=== PATIENT | female | born 1995 | race Caucasian/White ===

== ENCOUNTER 2017-04-29 14:29 | Emergency (ER) | payer BC, MEDICAID ==
[~2017-04-29] VITALS: Ht 160 cm; Wt 56.8 kg
[~2017-04-29 14:29] MED LIST: BUPR150T9 PO; CEFP500T4 PO; CETI1SYR3; DOCU-143 PO; ESCI20TA2 PO; FAMO-119 PO; IBUP-1773 PO; LISD40CA3 PO; METH4TAB PO; NITR-65 PO; OMEP20CA6 PO; OXYC-197 PO; PRM50SU PR; SPRINTEC; [UNRECOGNIZED DRUG - CODE]; b12
[2017-04-29] MEDS ORDERED: LORA-404 PO (14:44)
[2017-04-29] MEDS ORDERED: OMEP20CA12 PO (14:44)
[2017-04-29 15:15] LABS: BILIRUBIN,URINE NEGATIVE (NEGATIVE); CLARITY,URINE CLEAR; COLOR,URINE YELLOW; GLUCOSE, URINE (UA) NEGATIVE (NEGATIVE); KETONES,URINE 2+ (NEGATIVE); LEUKOCYTE ESTERASE ,URINE 1+ (NEGATIVE); NITRITE,URINE NEGATIVE (NEGATIVE); PH,URINE 6 (5-9); PROTEIN,URINE 1+ (NEGATIVE); UROBILINOGEN,URINE NORMAL (NORMAL)
[2017-04-29 15:22] LABS: BACTERIA,URINE FEW /HPF; SQUAMOUS EPITHELIAL CELL,UR 25-50 /HPF; WBC,URINE 0-2 /HPF
--- NOTE | 2017-04-29 15:29 | ED GU-Female ---
General Chief Complaint: Abdominal/GI Problems Stated Complaint: ABD PAIN Nursing Triage Note: PT STATES LOW ABD PAIN THAT STARTED YESTERDAY, NO KNOWN CAUSE. DENIES DIFFICULTY URINATING. Nursing Sepsis Screen: No Definite Risk Source: patient, family Exam Limitations: no limitations History of Present Illness Date Seen by Provider: Apr 29, 2017 Time Seen by Provider: 15:29 Initial Comments 22 yo female patient presents to the ED with c/o lower abdominal pain with onset yesterday. denies n/v/d, dysuria, frequency, vaginal dsch, or fevers. patient reports having a period one month ago with bleeding between periods. Also reports starting her menstrual cycle this week. Patient uses sprintec. Denies missing any doses of her BCP since December. Timing/Duration: yesterday Severity/Quality: cramping Location: suprapubic Prior Genitourinary Problems: none Sexual [place] History: less than 2 months ago, single partner Allergies and Home Medications Allergies Coded Allergies: hydrocodone (Unverified Allergy, Intermediate, HIVES, 09/16/15) penicillin (Unverified Allergy, Mild, RASH, 09/16/15) Home Medications Bupropion HCl 150 Mg Tablet.er, 150 MG PO DAILY, (Reported) Docusate Sodium 100 Mg Capsule, 100 MG PO BID, #60 Prescribed by: BRIDGER BLUE on 09/16/15 1411 Ibuprofen 600 Mg Tablet, 600 MG PO Q6H PRN for PAIN, #30 Prescribed by: BRIDGER BLUE on 09/16/15 1411 Lisdexamfetamine Dimesylate 40 Mg Capsule, 40 MG PO DAILY, #0 Prescribed by: TREASURE LEE on 09/16/15 1306 Lorazepam 0.5 Mg Tablet, 0.5 MG PO PRN, (Reported) Nitrofurantoin Monohyd/M-Cryst 100 Mg Capsule, 1 TAB PO BID, #10 Ref 0 Prescribed by: BRAYAN LOPEZ on 04/29/17 1652 Omeprazole 20 Mg Capsule.dr, 20 MG PO, (Reported) Oxycodone HCl/Acetaminophen 1 Each Tablet, 1-2 EACH PO Q6H PRN for PAIN, #30 MAY TAKE ONE OR TWO TABLETS BY MOUTH EVERY 6 HRS NEEDED FOR PAIN. LAST PAIN MEDICATION, ONE TABLET, GIVEN AT 4:25 PM. Prescribed by: TREASURE LEE on 09/16/15 1703 [Sprintec] , (Reported) Constitutional: No chills, No dizziness, No fever, No malaise EENTM: no symptoms reported Respiratory: no symptoms reported Cardiovascular: no symptoms reported Gastrointestinal: abdominal pain (suprapubic abdominal pain), No constipation, No diarrhea, No loss of appetite, No nausea, No vomiting Genitourinary: see HPI, denies burning, denies discharge, denies dysuria, denies frequency, denies flank pain, denies hematuria, pain : No LMP: Apr 29, 2017 Musculoskeletal: no symptoms reported Skin: no symptoms reported Psychiatric/Neurological: No Symptoms Reported All Other Systemes Reviewed Negative Unless Noted: Yes (Negative excepted noted.) Past Mlaajmi-Mcwlmo-Ujwnjv Hx Patient Social History Alcohol Use: Rarely Uses Alcohol Beverage of Choice: Wine Recreational Drug Use: Yes (THC) Type Used: Cigarettes Recent Foreign Travel: No Contact w/Someone Who Travel: No Recent Infectious Disease Expo: No Recent Hopitalizations: No Immunizations Up To Date Tetanus Booster (TDap): More than 5yrs PED Vaccines UTD: Yes Date of Influenza Vaccine: Dec 20, 2013 Seasonal Allergies Seasonal Allergies: Yes Surgeries History of Surgeries: Yes (EGD, RT ANKLE FX, LT WRIST FX) Surgeries: Appendectomy, Orthopedic Respiratory History of Respiratory Disorde: Yes (OCCASIONAL BRONCHITIS) Respiratory Disorders: Pneumonia Cardiovascular History of Cardiac Disorders: No Neurological History of Neurological Disord: No Reproductive System : No Last Menstrual Period: Apr 05, 2017 Hx Reproductive Disorders: No Sexually Transmitted Disease: No Female Reproductive Disorders: Denies Genitourinary History of Genitourinary Disor: No Gastrointestinal History of Gastrointestinal Di: Yes (ULCERS) Gastrointestinal Disorders: Esophagitis, Ulcer Musculoskeletal History of Musculoskeletal Dis: Yes (WRIST AND ANKLE) Musculoskeletal Disorders: Fractures Endocrine History of Endocrine Disorders: No Cancer History of Cancer: No Psychosocial History of Psychiatric Problem: Yes Behavioral Health Disorders: Eating Disorder, Anxiety, Suicide Attempts, Depression Integumentary History of Skin or Integumenta: No Blood Transfusions History of Blood Disorders: No Reviewed Nursing Assessment Reviewed/Agree w Nursing PMH: Yes Family Medical History Significant Family History: No Pertinent Family Hx Physical Exam Vital Signs Vital Signs - First Documented 04/29/17 14:37 Temp 97.6 Pulse 71 Resp 18 B/P (MAP) 125/82 (96) Pulse Ox 100 O2 Delivery Room Air Capillary Refill : Less Than 3 Seconds General Appearance: WD/WN, no apparent distress HEENT: PERRL/EOMI, pharynx normal Neck: supple, normal inspection Cardiovascular: normal peripheral pulses, regular rate, rhythm, no edema, no murmur Respiratory: lungs clear, normal breath sounds, no respiratory distress, no accessory muscle use Gastrointestinal: normal bowel sounds, soft, no organomegaly, No distended, guarding (suprapubic guarding.), No rebound, tenderness (suprapubic tenderness) , No mass Back: normal inspection, no CVA tenderness Extremities: no pedal edema, normal capillary refill Neurologic/Psychiatric: alert, normal mood/affect, oriented x 3 Skin: normal color, warm/dry Progress/Results/Core Measures Suspected Sepsis Recent Fever Within 48 Hours: No Infection Criteria Present: None New/Unexplained Altered Menta: No Sepsis Screen: No Definite Risk Sepsis Diagnosis: SIRS Temperature:97.6 Pulse: 71 Respiratory Rate: 18 Laboratory Tests 04/29/17 15:20: White Blood Count 10.4 Blood Pressure 125 /82 Mean: 96 Laboratory Tests 04/29/17 15:20: Creatinine 0.86, Platelet Count 230, Total Bilirubin 1.7H Results/Orders Lab Results Laboratory Tests Test 04/29/17 14:52 04/29/17 15:20 Range/Units Urine Color YELLOW Urine Clarity CLEAR Urine pH 6 5-9 Urine Specific Metter 1.020 1.016-1.022 Urine Protein 1+ H NEGATIVE Urine Glucose (UA) NEGATIVE NEGATIVE Urine Ketones 2+ H NEGATIVE Urine Nitrite NEGATIVE NEGATIVE Urine Bilirubin NEGATIVE NEGATIVE Urine Urobilinogen NORMAL NORMAL MG/DL Urine Leukocyte Esterase 1+ H NEGATIVE Urine RBC (Auto) 3+ H NEGATIVE Urine RBC 2-5 H /HPF Urine WBC 0-2 /HPF Urine Squamous Epithelial Cells 25-50 H /HPF Urine Crystals NONE /LPF Urine Bacteria FEW H /HPF Urine Casts NONE /LPF Urine Mucus MODERATE H /LPF Urine Culture Indicated NO White Blood Count 10.4 4.3-11.0 10^3/uL Red Blood Count 4.34 L 4.35-5.85 10^6/uL Hemoglobin 12.9 11.5-16.0 G/DL Hematocrit 38 35-52 % Mean Corpuscular Volume 86 80-99 FL Mean Corpuscular Hemoglobin 30 25-34 PG Mean Corpuscular Hemoglobin Concent 34 32-36 G/DL Red Cell Distribution Width 12.0 10.0-14.5 % Platelet Count 230 130-400 10^3/uL Mean Platelet Volume 9.8 7.4-10.4 FL Neutrophils (%) (Auto) 74 42-75 % Lymphocytes (%) (Auto) 18 12-44 % Monocytes (%) (Auto) 7 0-12 % Eosinophils (%) (Auto) 0 0-10 % Basophils (%) (Auto) 0 0-10 % Neutrophils # (Auto) 7.7 1.8-7.8 X 10^3 Lymphocytes # (Auto) 1.9 1.0-4.0 X 10^3 Monocytes # (Auto) 0.7 0.0-1.0 X 10^3 Eosinophils # (Auto) 0.0 0.0-0.3 10^3/uL Basophils # (Auto) 0.0 0.0-0.1 10^3/uL Sodium Level 138 135-145 MMOL/L Potassium Level 3.4 L 3.6-5.0 MMOL/L Chloride Level 104 98-107 MMOL/L Carbon Dioxide Level 24 21-32 MMOL/L Anion Gap 10 5-14 MMOL/L Blood Urea Nitrogen 14 7-18 MG/DL Creatinine 0.86 0.60-1.30 MG/DL Estimat Glomerular Filtration Rate > 60 BUN/Creatinine Ratio 16 Glucose Level 78 70-105 MG/DL Calcium Level 8.8 8.5-10.1 MG/DL Total Bilirubin 1.7 H 0.1-1.0 MG/DL Aspartate Amino Transf (AST/SGOT) 15 5-34 U/L Alanine Aminotransferase (ALT/SGPT) 15 0-55 U/L Alkaline Phosphatase 53 40-136 U/L Total Protein 6.7 6.4-8.2 GM/DL Albumin 4.0 3.2-4.5 GM/DL Lipase 23 8-78 U/L Human Chorionic Gonadotropin, Quant 402 H <5 MIU/ML My Orders Orders - BRAYAN LOPEZ Ua Culture If Indicated (04/29/17 15:10) Urine Bedside (04/29/17 15:10) Cbc With Automated Diff (04/29/17 15:35) Comprehensive Metabolic Panel (04/29/17 15:35) Hcg,Quantitative (04/29/17 15:35) Lipase (04/29/17 15:35) Saline Lock/Iv-Start (04/29/17 15:35) Us Ob<14 Wks Sngle W/Transvag (04/29/17 15:35) Hydroxyzine Oral (Vistaril Capsule) (04/29/17 15:45) Morphine Injection (Morphine Injection (04/29/17 15:43) Famotidine Injection (Pepcid Injection) (04/29/17 15:43) Ns Iv 1000 Ml (Sodium Chloride 0.9%) (04/29/17 15:43) Medications Given in ED Current Medications Medications Dose Ordered Sig/Emily Route Start Time Stop Time Status Last Admin Dose Admin Hydroxyzine Pamoate 25 mg ONCE ONCE PO 04/29/17 15:45 04/29/17 15:46 DC 04/29/17 16:50 25 MG Sodium Chloride 1,000 ml @ 0 mls/hr Q0M ONCE IV 04/29/17 15:43 04/29/17 15:46 DC 04/29/17 16:49 1,000 MLS/HR Vital Signs/I&O Vital Sign - Last 12Hours 04/29/17 04/29/17 04/29/17 14:37 16:50 17:50 Temp 97.6 97.6 97.6 Pulse 71 71 Resp 18 18 B/P (MAP) 125/82 (96) Pulse Ox 100 100 O2 Delivery Room Air Room Air Capillary Refill : Less Than 3 Seconds Blood Pressure Mean: 96 Diagnostic Imaging Diagonstic Imaging: Ultrasound Plain Films/CT/US/NM/MRI: pelvis Comments US OB<14 WKS SNGLE W/TRANSVAG INDICATION: Gestational age determination. EXAMINATION: OB sonogram. FINDINGS: Uterus measures 7.8 x 3.1 x 5.3 cm. Endometrial stripe is 5 mm. There is no sonographic evidence for an intrauterine gestational sac. There is a 2.7 cm cyst on right ovary. There is a small amount of free fluid. Left ovary appears normal. IMPRESSION: There is no sonographic evidence for an intrauterine gestational sac. There is a cyst on the right ovary and some free fluid but no direct sonographic evidence of an ectopic . Dictated by: Dictated on workstation # [id number] Reviewed: Reviewed by Me (radiology report reviewed by me) Departure Communication (Admissions) Progress Notes all laboratory and diagnostic findings discussed with the patient. plan for [facility] to home with f/u as an outpatient with Dr. Choi or the INTEGRITY ASSESSOR of her choice for repeat labs and to schedule an outpatient repeat u/s. all return precautions were discussed with the patient as described in the [facility] instructions of this report. patient verbalizes understanding and agrees with the treatment plan. patient case discussed with Dr. Hernandes, he agrees with the plan of care. Impression Impression: Primary Impression: Threatened miscarriage in early Additional Impressions: Urinary tract infection affecting Volume depletion Disposition: HOME, SELF-CARE Condition: Improved Departure-Patient Inst. Decision time for Depature: 16:47 Referrals: KAYODE WILSON DENNIS G MD QUICK, KAY W ARNP SALVADOR, LISA A MD (PCP/Family) Primary Care Physician PATRICK RAE DO Patient Instructions: Threatened Miscarriage (DC), Urinary Tract Infection, Adult (DC) Add. Discharge Instructions: All discharge instructions reviewed with patient and/or family. Voiced understanding. Medications as instructed. Tylenol extra strength [id number] as directed for pain. Stop your control and anxiety medicines immediately. No intercourse, tampons, or douching until released by your INTEGRITY ASSESSOR. Follow-up with the slag expander of your choice or Dr. Choi tomorrow or Wednesday for recheck, repeat labs, and to schedule a repeat outpatient ultrasound. Call tomorrow morning for appointment time. Return to the emergency department for worsened symptoms or any other concerns. Scripts Nitrofurantoin Monohyd/M-Cryst (Macrobid 100 mg Capsule) 100 Mg Capsule 1 TAB PO BID, #10 CAP 0 Refills Prov: BRAYAN LOPEZ 04/29/17 BRAYAN LOPEZ Apr 29, 2017 15:29
[2017-04-29 15:43] LABS: BASOPHILS % (AUTO) 0 % (0-10); EOSINOPHILS % (AUTO) 0 % (0-10); HEMATOCRIT 38 % (35-52); HEMOGLOBIN 12.9 G/DL (11.5-16.0); LYMPHOCYTES # (AUTO) 1.9 X 10^3 (1.0-4.0); LYMPHOCYTES % (AUTO) 18 % (12-44); MEAN CORPUSCULAR HEMOGLOBIN 30 PG (25-34); MEAN CORPUSCULAR HGB CONC 34 G/DL (32-36); MEAN CORPUSCULAR VOLUME 86 FL (80-99); MEAN PLATELET VOLUME 9.8 FL (7.4-10.4); MONOCYTES # (AUTO) 0.7 X 10^3 (0.0-1.0); MONOCYTES % (AUTO) 7 % (0-12); NEUTROPHILS # (AUTO) 7.7 X 10^3 (1.8-7.8); NEUTROPHILS % (AUTO) 74 % (42-75); PLATELET COUNT 230 10^3/uL (130-400); RED BLOOD COUNT 4.34 10^6/uL (4.35-5.85); WHITE BLOOD COUNT 10.4 10^3/uL (4.3-11.0)
[2017-04-29] MEDS ORDERED: morphine INJ 10 MG/ML 1ML (SYR OR VIAL) IVP STA (15:43)
[2017-04-29] MEDS ORDERED: FAMOTIDINE 20MG/2ML IV (PEPCID) IV STA (15:43)
[2017-04-29] MEDS ORDERED: NS IV 1000 ML 1,000 ML IV ONE (15:43)
[2017-04-29] MEDS ORDERED: hydrOXYzine (VISTARIL) 25 MG CAP PO ONE (15:45)
[2017-04-29 15:53] LABS: ALANINE AMINOTRANSFERASE 15 U/L (0-55); ALKALINE PHOSPHATASE 53 U/L (40-136); BILIRUBIN,TOTAL 1.7 MG/DL (0.1-1.0); BUN/CREATININE RATIO 16; CALCIUM 8.8 MG/DL (8.5-10.1); CARBON DIOXIDE 24 MMOL/L (21-32); CHLORIDE 104 MMOL/L (98-107); CREATININE SERUM 0.86 MG/DL (0.60-1.30); GFR ESTIMATED > 60; GLUCOSE 78 MG/DL (70-105); LIPASE 23 U/L (8-78); POTASSIUM 3.4 MMOL/L (3.6-5.0); SODIUM 138 MMOL/L (135-145); TOTAL PROTEIN 6.7 GM/DL (6.4-8.2)
--- NOTE | 2017-04-29 16:20 | Diagnostic Imaging Report ---
INDICATION: Gestational age determination. EXAMINATION: OB sonogram. FINDINGS: Uterus measures 7.8 x 3.1 x 5.3 cm. Endometrial stripe is 5 mm. There is no sonographic evidence for an intrauterine gestational sac. There is a 2.7 cm cyst on right ovary. There is a small amount of free fluid. Left ovary appears normal. IMPRESSION: There is no sonographic evidence for an intrauterine gestational sac. There is a cyst on the right ovary and some free fluid but no direct sonographic evidence of an ectopic . Dictated by: Dictated on workstation # [id number]
[2017-04-29] MEDS ORDERED: NITR-65 PO (16:52)
[2017-04-29 17:50] VITALS: BP 125/82
--- OUTSIDE RECORDS SUMMARY | 2017-05-02 05:42 | XMS REPORT ---
Author THEODORA Stuart [facility] eClinicalWorks Address Unknown Phone Unavailable Care Team Providers Care Application Performance Engineer Name Role Phone THEODORA ASTUDILLO Unavailable Allergies No Known Allergies Problems No Known Problems Medications Medication Code System Code Instructions Start Date End Date Status Dosage Diflucan [facility] [address]-48 150 MG Orally Once a day may repeat dose in three days Nov 16, 2014 1 tablet Results No Known Results Summary Purpose eClinicalWorks Submission
--- OUTSIDE RECORDS SUMMARY | 2017-05-02 05:42 | XMS REPORT | Continuity of Care Document ---
Author Author [facility] Organization [facility] Address Unknown Phone Unavailable Allergies Active Description Code Type Severity Reaction Onset Reported/Identified Relationship to Patient Clinical Status Yes hydrocodone [id number] Drug Allergy Mild N/A 02/05/2011 Yes penicillin [id number] Drug Allergy Unknown N/A 11/26/2014 Yes hydrocodone [id number] Drug Allergy Moderate HIVES 09/16/2015 Yes penicillin [id number] Drug Allergy Mild RASH 09/16/2015 Yes hydrocodone hydrocodone Drug Allergy Unknown UNKNOWN 01/31/2016 Yes Penicillins Penicillins Drug Allergy Unknown UNKNOWN 01/31/2016 Medications There is no data. Problems Date Dx Coded Attending Type Code Diagnosis Diagnosed By 02/07/2011 Ot 850.0 CONCUSSION W/ O COMA 02/07/2011 Ot E000.8 OTHER EXTERNAL CAUSE STATUS 02/07/2011 Ot E007.6 ACTIVITIES INVOLVING BASKETBALL 02/07/2011 Ot E849.4 ACCID IN RECREATION AREA 02/07/2011 Ot E886.0 FALL IN SPORTS 06/08/2012 Ot 530.11 REFLUX ESOPHAGITIS 06/08/2012 Ot 535.40 OTH SPECIFIED GASTRITIS,W/O MENTION OF H 12/24/2012 MELQUIADES OCHOA MD Ot 599.0 URIN TRACT INFECTION NOS 12/24/2012 MELQUIADES OCHOA MD Ot 787.01 NAUSEA WITH VOMITING 03/16/2013 CHARLES MIRANDA MD Ot 305.20 CANNABIS ABUSE-UNSPEC 03/16/2013 CHARLES MIRANDA MD Ot 599.0 URIN TRACT INFECTION NOS 03/16/2013 CHARLES MIRANDA MD Ot 881.02 OPEN WOUND OF WRIST 03/16/2013 CHARLES MIRANDA MD Ot E000.8 OTHER EXTERNAL CAUSE STATUS 03/16/2013 CHARLES MIRANDA MD Ot E849.0 ACCIDENT IN HOME 03/16/2013 CHARLES MIRANDA MD Ot E956 KYMBERLY/SELF-INJ BY CUT INST 02/05/2014 Ot V72.84 02/05/2014 TERRI HENSLEY DOLINE Jenny Ot 276.51 DEHYDRATION 02/05/2014 TERRI HENSLEY DOLINE Jenny Ot 558.9 NONINF GASTROENTERIT NEC 02/05/2014 Ot V72.84 04/05/2014 DADA MUÑIZ, JAVI Leslie Ot 780.2 SYNCOPE AND COLLAPSE 05/06/2014 Ot V72.84 05/06/2014 ALEKS ANTON DO Ot 305.20 CANNABIS ABUSE-UNSPEC 05/06/2014 ALEKS ANTON DO Ot 881.02 OPEN WOUND OF WRIST 05/06/2014 ALEKS ANTON DO Ot E000.8 OTHER EXTERNAL CAUSE STATUS 05/06/2014 ALEKS ANTON DO Ot E849.0 ACCIDENT IN HOME 05/06/2014 ALEKS ANTON DO Ot E956 KYMBERLY/SELF-INJ BY CUT INST 05/06/2014 ALEKS ANTON DO Ot V62.84 SUICIDAL IDEATION 11/26/2014 Ot V72.84 11/26/2014 ALEKS ANTON DO Ot 462 ACUTE PHARYNGITIS 11/26/2014 ALEKS ANTON DO Ot 599.0 URIN TRACT INFECTION NOS 11/26/2014 ALEKS ANTON DO Ot 782.1 NONSPECIF SKIN ERUPT NEC 11/26/2014 ALEKS ANTON DO Ot J02.9 ACUTE PHARYNGITIS, UNSPECIFIED 11/26/2014 ALEKS ANTON DO Ot N39.0 URINARY TRACT INFECTION, SITE NOT SPECIF 11/26/2014 ALEKS ANTON DO Ot R21 RASH AND OTHER NONSPECIFIC SKIN ERUPTION 11/26/2014 Ot V72.84 11/30/2014 Ot V72.84 11/30/2014 KASSI MUÑIZ, MONIQUE Payne Ot 569.3 RECTAL ANAL HEMORRHAGE 11/30/2014 KASSI MUÑIZ, MONIQUE Payne Ot 787.91 DIARRHEA 11/30/2014 KASSI MUÑIZ, MONIQUE Payne Ot K62.5 HEMORRHAGE OF ANUS AND RECTUM 11/30/2014 KASSI MUÑIZ, MONIQUE Payne Ot V12.71 PERSONAL HISTORY OF PEPTIC ULCER DISEASE 11/30/2014 KASSI MUÑIZ, MONIQUE Payne Ot Z87.11 PERSONAL HISTORY OF PEPTIC ULCER DISEASE 03/19/2015 Ot V72.84 03/19/2015 KASSI MUÑIZ, MONIQUE Payne Ot V72.84 09/13/2015 Ot V72.84 EXAM PRE- OPERATIVE NOS 09/13/2015 KASSI MUÑIZ, MONIQEU Payne Ot V72.84 EXAM PRE-OPERATIVE NOS 09/16/2015 Ot V72.84 EXAM PRE- OPERATIVE NOS 09/16/2015 MONIQUE SOLITARIO MD Ot V72.84 EXAM PRE-OPERATIVE NOS 09/16/2015 SU MUÑIZ BRIDGER N Ot N39.0 URINARY TRACT INFECTION, SITE NOT SPECIF 09/16/2015 SU MUÑIZ BRIDGER N Ot 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 <section xmlns="urn:hl7-org:v3" xmlns:xsi="http:// www.3.org/2001/XMLSchema-instance"> <templateId root= "[email or web address]" /> <templateId root= "[email or web address]" /> <code codeSystemName="LOINC" codeSystem= "[id number]" code="26148-4" displayName="Results" /> <title>Results< /title> <text> <table> <thead> <tr> <th>Test</th> <th>Result</th> <th>Range</th> </tr> </thead> < tbody> <tr> <th colspan="10">URINE CULTURE - 01/31/16 19:18</th > </tr> <tr> <td>Microbiology</td> <td> </td> <td /> </tr> <tr> <th colspan="10">URINALYSIS, ROUTINE - 01/31/16 19:31</th> </tr> <tr> <td>UA LEUKOCYTE ESTERASE DIPSTICK</td> <td>TRACE </td> <td>NEGATIVE< /td> </tr> <tr> <td>UA NITRITE DIPSTICK</td> <td >NEGATIVE </td> <td>NEGATIVE</td> </tr> <tr> <td >UA PROTEIN DIPSTICK</td> <td>NEGATIVE </td> <td>NEGATIVE</td > </tr> <tr> <td>UA GLUCOSE DIPSTICK</td> <td> NEGATIVE </td> <td>NEGATIVE</td> </tr> <tr> <td> UA KETONE DIPSTICK</td> <td>NEGATIVE </td> <td>NEGATIVE</td> </tr> <tr> <td>UA UROBILINOGEN DIPSTICK</td> <td >NORMAL </td> <td>NORMAL</td> </tr> <tr> <td>UA BILIRUBIN DIPSTICK</td> <td>NEGATIVE </td> <td>NEGATIVE</td> </tr> <tr> <td>UA BLOOD DIPSTICK</td> <td>1+ </ td> <td>NEGATIVE</td> </tr> <tr> <td>UA SPECIFIC GRAVITY</td> <td>>=1.030 </td> <td>1.015-1.025</td > </tr> <tr> <td>UR PH</td> <td>5.5 </td> <td>5.0-7.0</td> </tr> <tr> <th colspan="10">UA MICROSCOPIC - 01/31/16 19:31</th> </tr> <tr> <td>UA BACTERIA</td> <td>1+ </td> <td>NEGATIVE</td> </tr> <tr> <td>UA EPITHELIAL CELLS</td> <td>3+ epi/hpf</td> <td>0 - 1+</td> </tr> <tr> <td>UA MUCUS</td> <td>3+ </td> <td>NEG TO 1+</td> </tr> <tr> < td>UA RBC</td> <td>3-5 rbc/hpf</td> <td>0 - 3</td> </tr > <tr> <td>UA VOLUME FOR EXAM</td> <td>12.0 mL</td> <td>(12mL STD)</td> </tr> <tr> <td>UA WBC</td> <td>20-50 wbc/hpf</td> <td>0 - 5</td> </tr> <tr> <th colspan="10">UR TEST - 01/31/16 19:31</th> </tr> <tr> <td>UR TEST</td> <td>NEGATIVE </td> <td>NEGATIVE</td> </tr> <tr> <th colspan="10">UR DRUGS OF ABUSE SCREEN - 01/31/16 19:31</th> </tr> <tr> < td>UR AMPHETAMINES SCREEN</td> <td>NEG (<1000 ng/mL) </td> <td>NEGATIVE</td> </tr> <tr> <td>UR BARBITURATE SCREEN< /td> <td>NEG (< 200 ng/mL) </td> <td>NEGATIVE</td> </tr> <tr> <td>DRUGS OF ABUSE SCREEN COMMENT</td> <td>* </td> <td /> </tr> <tr> <td>UR OPIATES SCREEN</td> <td>NEG (< 300 ng/mL) </td> <td>NEGATIVE</td> </tr> <tr> <td>UR PHENCYCLIDINE (PCP) SCREEN</td> <td>NEG (< 25 ng/mL) </td> <td>NEGATIVE</td> </tr> <tr> <td>UR CANNABINOIDS (THC) SCREEN</td> <td>POS (> 50 ng/mL) </td> <td>NEGATIVE</td> </tr> <tr> < td>UR COCAINE METABOLITE SCREEN</td> <td>POS (> 300 ng/mL) </td> <td>NEGATIVE</td> </tr> <tr> <td>UR METHADONE SCREEN</td> <td>NEG (< 300 ng/mL) </td> <td>NEGATIVE</td> </tr> <tr> <td>UR BENZODIAZEPINE SCREEN</td> < td>NEG (< 200 ng/mL) </td> <td>NEGATIVE</td> </tr> < tr> <th colspan="10">CHLAMYDIA DNA BY PCR - 01/31/16 19:31</th> </tr> <tr> <td>Microbiology</td> <td> </td> < td /> </tr> <tr> <th colspan="10">WET [place] - 01/31/16 20 :00</th> </tr> <tr> <td>Microbiology</td> <td> < /td> <td /> </tr> <tr> <th colspan="10">GRAM STAIN - CHLAMYDIA DNA BY PCR - 01/31/16 20:00</th> </tr> <tr> <td>Microbiology</td> <td> </td> <td /> </tr> <tr> <th colspan="10">CHEM/HEM PROFILE-BEDSIDE - 02/24/16 02:10</ th> </tr> <tr> <td>POTASSIUM</td> <td>3.5 mmol/L </td> <td>3.5-5.3</td> </tr> <tr> <td>METHOD</td > <td>Bedside </td> <td /> </tr> <tr> < td>ANION GAP</td> <td>0 mmol/L</td> <td>10-20</td> </tr > <tr> <td>METHOD</td> <td>Bedside </td> <td / > </tr> <tr> <td>GLUCOSE</td> <td>95 mg/dL</td> <td>70-99</td> </tr> <tr> <td>BLOOD UREA NITROGEN</td> <td>16 mg/dL</td> <td>7-20</td> </tr> <tr> <td>CREATININE</td> <td>0.8 mg/dL</td> <td> 0.6-1.0</td> </tr> <tr> <td>HEMOGLOBIN</td> <td> 12.6 gm/dL</td> <td>12.0-16.0</td> </tr> <tr> < td>HEMATOCRIT</td> <td>37.0 %</td> <td>37.0-47.0</td> </tr> <tr> <td>SODIUM</td> <td>141 mmol/L</td> <td>135-148</td> </tr> <tr> <td>CHLORIDE</td> <td>102 mmol/L</td> <td>98-110</td> </tr> <tr> <td>CARBON DIOXIDE</td> <td>43 mmol/L</td> <td>21-32</td > </tr> <tr> <td>CALCIUM IONIZED</td> <td>4.7 mg /dL</td> <td>4.5-5.3</td> </tr> <tr> <th colspan ="10">URINALYSIS, ROUTINE - 02/24/16 02:14</th> </tr> <tr> <td>UA LEUKOCYTE ESTERASE DIPSTICK</td> <td>NEGATIVE </td> <td>NEGATIVE</td> </tr> <tr> <td>UA NITRITE DIPSTICK</td > <td>NEGATIVE </td> <td>NEGATIVE</td> </tr> <tr > <td>UA PROTEIN DIPSTICK</td> <td>1+ </td> <td> NEGATIVE</td> </tr> <tr> <td>UA GLUCOSE DIPSTICK</td> <td>NEGATIVE </td> <td>NEGATIVE</td> </tr> <tr> <td>UA KETONE DIPSTICK</td> <td>1+ </td> <td>NEGATIVE< /td> </tr> <tr> <td>UA UROBILINOGEN DIPSTICK</td> <td>NORMAL </td> <td>NORMAL</td> </tr> <tr> < td>UA BILIRUBIN DIPSTICK</td> <td>1+ </td> <td>NEGATIVE</td> </tr> <tr> <td>UA BLOOD DIPSTICK</td> <td> NEGATIVE </td> <td>NEGATIVE</td> </tr> <tr> <td> UA SPECIFIC GRAVITY</td> <td>>=1.030 </td> <td>1.015-1.025< /td> </tr> <tr> <td>UR PH</td> <td>5.5 </td> <td>5.0-7.0</td> </tr> <tr> <th colspan="10">UA MICROSCOPIC - 02/24/16 02:14</th> </tr> <tr> <td>UA BACTERIA</td> <td>2+ </td> <td>NEGATIVE</td> </tr> <tr> <td>UA EPITHELIAL CELLS</td> <td>1+ epi/hpf</td> <td>0 - 1+</td> </tr> <tr> <td>UA MUCUS</td> <td>4+ </td> <td>NEG TO 1+</td> </tr> <tr> < td>UA RBC</td> <td>0-3 rbc/hpf</td> <td>0 - 3</td> </tr > <tr> <td>UA VOLUME FOR EXAM</td> <td>12.0 mL</td> <td>(12mL STD)</td> </tr> <tr> <td>UA WBC</td> <td>2-5 wbc/hpf</td> <td>0 - 5</td> </tr> <tr> <th colspan="10">UR TEST - 02/24/16 02:16</th> </tr> <tr> <td>UR TEST</td> <td>NEGATIVE </td> <td>NEGATIVE</td> </tr> <tr> <th colspan="10"> URINALYSIS, ROUTINE - 04/09/16 08:34</th> </tr> <tr> <td> UA LEUKOCYTE ESTERASE DIPSTICK</td> <td>NEGATIVE </td> <td> NEGATIVE</td> </tr> <tr> <td>UA NITRITE DIPSTICK</td> <td>NEGATIVE </td> <td>NEGATIVE</td> </tr> <tr> <td>UA PROTEIN DIPSTICK</td> <td>1+ </td> <td>NEGATIVE </td> </tr> <tr> <td>UA GLUCOSE DIPSTICK</td> < td>NEGATIVE </td> <td>NEGATIVE</td> </tr> <tr> < td>UA KETONE DIPSTICK</td> <td>TRACE </td> <td>NEGATIVE</td> </tr> <tr> <td>UA UROBILINOGEN DIPSTICK</td> <td >NORMAL </td> <td>NORMAL</td> </tr> <tr> <td>UA BILIRUBIN DIPSTICK</td> <td>1+ </td> <td>NEGATIVE</td> </tr> <tr> <td>UA BLOOD DIPSTICK</td> <td>NEGATIVE </td > <td>NEGATIVE</td> </tr> <tr> <td>UA SPECIFIC GRAVITY</td> <td>>=1.030 </td> <td>1.015-1.025</td> </tr> <tr> <td>UR PH</td> <td>5.5 </td> <td> 5.0-7.0</td> </tr> <tr> <th colspan="10">UA MICROSCOPIC - 04/09/16 08:34</th> </tr> <tr> <td>UA BACTERIA</td> <td>2+ </td> <td>NEGATIVE</td> </tr> <tr> <td>UA EPITHELIAL CELLS</td> <td>2+ epi/hpf</td> <td>0 - 1+< /td> </tr> <tr> <td>UA MUCUS</td> <td>3+ </td> <td>NEG TO 1+</td> </tr> <tr> <td>UA RBC</td> <td>0 rbc/hpf</td> <td>0 - 3</td> </tr> <tr> <td>UA VOLUME FOR EXAM</td> <td>12.0 mL</td> <td>(12mL STD)</td> </tr> <tr> <td>UA WBC</td> <td>0-1 wbc /hpf</td> <td>0 - 5</td> </tr> <tr> < colspan= "10">UR TEST - 04/09/16 08:36</th> </tr> <tr> < td>UR TEST</td> <td>NEGATIVE </td> <td>NEGATIVE</td > </tr> <tr> <th colspan="10">UR DRUGS OF ABUSE SCREEN - 04/09/16 08:36</th> </tr> <tr> <td>UR AMPHETAMINES SCREEN </td> <td>NEG (<1000 ng/mL) </td> <td>NEGATIVE</td> </tr> <tr> <td>UR BARBITURATE SCREEN</td> <td>NEG (& lt; 200 ng/mL) </td> <td>NEGATIVE</td> </tr> <tr> <td>DRUGS OF ABUSE SCREEN COMMENT</td> <td> </td> <td /> </tr> <tr> <td>UR OPIATES SCREEN</td> <td> NEG (< 300 ng/mL) </td> <td>NEGATIVE</td> </tr> <tr> <td>UR PHENCYCLIDINE (PCP) SCREEN</td> <td>NEG (< 25 ng/ mL) </td> <td>NEGATIVE</td> </tr> <tr> <td>UR CANNABINOIDS (THC) SCREEN</td> <td>POS (> 50 ng/mL) </td> <td>NEGATIVE</td> </tr> <tr> <td>UR COCAINE METABOLITE SCREEN</td> <td>NEG (< 300 ng/mL) </td> <td>NEGATIVE</td> </tr> <tr> <td>UR METHADONE SCREEN</td> <td> NEG (< 300 ng/mL) </td> <td>NEGATIVE</td> </tr> <tr> <td>UR BENZODIAZEPINE SCREEN</td> <td>NEG (< 200 ng/mL) < /td> <td>NEGATIVE</td> </tr> <tr> <th colspan= "10">CBC W/DIFF - 04/09/16 08:53</th> </tr> <tr> <td> EOSINOPHIL #</td> <td>0.1 k/cumm</td> <td>0.1-0.5</td> </tr> <tr> <td>EOSINOPHIL %</td> <td>2 %</td> <td>2-4</td> </tr> <tr> <td>GRANULOCYTE #</td> <td>3.6 k/cumm</td> <td>2.0-9.0</td> </tr> <tr> <td>GRANULOCYTE %</td> <td>57 %</td> <td>50- 75</td> </tr> <tr> <td>LYMPHOCYTE #</td> <td> 2.2 k/cumm</td> <td>1.0-4.0</td> </tr> <tr> <td> LYMPHOCYTE %</td> <td>34 %</td> <td>20-30</td> </tr> <tr> <td>MEAN CELL HGB</td> <td>27.8 pg</td> <td>27.0-33.0</td> </tr> <tr> <td>MEAN CELL HGB CONCENTRATION</td> <td>32.9 g/dL</td> <td>32.0-37.0</td> </tr> <tr> <td>MEAN CELL VOLUME</td> <td>84.4 fl</td > <td>80.0-100.0</td> </tr> <tr> <td>MONOCYTE #< /td> <td>0.4 k/cumm</td> <td>0.1-1.0</td> </tr> <tr> <td>MONOCYTE %</td> <td>7 %</td> <td>4-6 </td> </tr> <tr> <td>RED BLOOD CELL</td> <td> 4.68 m/cumm</td> <td>4.00-6.00</td> </tr> <tr> < td>RED CELL DISTRIBUTION WIDTH</td> <td>13.0 %</td> <td> 11.0-15.6</td> </tr> <tr> <td>WHITE BLOOD CELL</td> <td>6.4 k/cumm</td> <td>5.0-10.0</td> </tr> <tr> <td>HEMOGLOBIN</td> <td>13.0 gm/dL</td> <td>12.0-16.0</ td> </tr> <tr> <td>HEMATOCRIT</td> <td>39.5 &#37 ;</td> <td>37.0-47.0</td> </tr> <tr> <td> PLATELET COUNT</td> <td>252 k/cumm</td> <td>150-400</td> </tr> <tr> <th colspan="10">HEPATIC FUNCTION PANEL - 08:53</th> </tr> <tr> <td>BILI UNCONJUGATED</td> <td>1.0 mg/dL</td> <td>0.0-0.7</td> </tr> <tr> <td>AST/SGOT</td> <td>9 Units/L</td> <td>10-37</td> </tr> <tr> <td>ALT/SGPT</td> <td>19 Units/L</td> <td>< 66</td> </tr> <tr> <td>TOTAL PROTEIN</td > <td>7.1 gm/dL</td> <td>6.4-8.2</td> </tr> <tr > <td>ALBUMIN</td> <td>3.8 gm/dL</td> <td>3.4-5.0</td > </tr> <tr> <td>BILI TOTAL</td> <td>1.3 mg/dL</ td> <td>0.0-1.0</td> </tr> <tr> <td>ALKALINE PHOSPHATASE TOTAL</td> <td>60 IU/L</td> <td>45-117</td> </tr> <tr> <td>BILI CONJUGATED</td> <td>0.3 mg/dL</td > <td>0.0-0.3</td> </tr> <tr> <th colspan="10"> MAGNESIUM - 04/09/16 08:53</th> </tr> <tr> <td>MAGNESIUM< /td> <td>2.2 mg/dL</td> <td>1.8-2.4</td> </tr> < tr> < colspan="10">THYROID STIM HORMONE (TSH) - 04/09/16 08:53</th> </tr> <tr> <td>THYROID STIM HORMONE (TSH)</td> < td>0.82 uIU/mL</td> <td>0.46-4.13</td> </tr> <tr> < colspan="10">LIPASE - 04/09/16 08:53</th> </tr> <tr> <td>LIPASE</td> <td>180 Units/L</td> <td>73-393</td> </tr> <tr> < colspan="10">PREALBUMIN - 04/09/16 08:53</th> </tr> <tr> <td>PREALBUMIN</td> <td>24 mg/dL</td > <td>20-40</td> </tr> <tr> < colspan="10"> CHEM/HEM PROFILE-BEDSIDE - 04/09/16 09:05</th> </tr> <tr> <td>POTASSIUM</td> <td>3.6 mmol/L</td> <td>3.5-5.3</td> </tr> <tr> <td>METHOD</td> <td>Bedside </td> <td /> </tr> <tr> <td>ANION GAP</td> <td>19 mmol/L</td> <td>10-20</td> </tr> <tr> <td>METHOD </td> <td>Bedside </td> <td /> </tr> <tr> <td>GLUCOSE</td> <td>75 mg/dL</td> <td>70-99</td> < /tr> <tr> <td>BLOOD UREA NITROGEN</td> <td>17 mg/dL</td > <td>7-20</td> </tr> <tr> <td>CREATININE</td> <td>0.9 mg/dL</td> <td>0.6-1.0</td> </tr> <tr> <td>HEMOGLOBIN</td> <td>12.2 gm/dL</td> <td>12.0-16.0 </td> </tr> <tr> <td>HEMATOCRIT</td> <td>36.0 &# 37;</td> <td>37.0-47.0</td> </tr> <tr> <td> SODIUM</td> <td>142 mmol/L</td> <td>135-148</td> </tr> <tr> <td>CHLORIDE</td> <td>104 mmol/L</td> < td>98-110</td> </tr> <tr> <td>CARBON DIOXIDE</td> <td>23 mmol/L</td> <td>21-32</td> </tr> <tr> <td>CALCIUM IONIZED</td> <td>4.5 mg/dL</td> <td>4.5-5.3</td> </tr> <tr> <th colspan="10">CALCIUM IONIZED - 04/10/16 05 :18</th> </tr> <tr> <td>CALCIUM IONIZED</td> <td >4.8 mg/dL</td> <td>4.5-5.3</td> </tr> <tr> <th colspan="10">METABOLIC PANEL, COMPREHN - 04/10/16 05:18</th> </tr> <tr> <td>POTASSIUM</td> <td>4.1 mmol/L</td> <td>3.5 -5.3</td> </tr> <tr> <td>EST GFR (MDRD)</td> <td >> 60 mL/min</td> <td>> 59</td> </tr> <tr> <td>ANION GAP</td> <td>6 mmol/L</td> <td>5-15</td> </ tr> <tr> <td>EST CrCl (CG)</td> <td>> 60 mL/min</td > <td>> 59</td> </tr> <tr> <td>GLUCOSE</td> <td>73 mg/dL</td> <td>70-99</td> </tr> <tr> <td>CALCIUM</td> <td>8.6 mg/dL</td> <td>8.5-10.1</td> </tr> <tr> <td>BLOOD UREA NITROGEN</td> <td>9 mg/ dL</td> <td>7-20</td> </tr> <tr> <td>CREATININE< /td> <td>0.9 mg/dL</td> <td>0.6-1.0</td> </tr> < tr> <td>SODIUM</td> <td>141 mmol/L</td> <td>135-148</ td> </tr> <tr> <td>CHLORIDE</td> <td>107 mmol/L< /td> <td>98-110</td> </tr> <tr> <td>AST/SGOT</td > <td>10 Units/L</td> <td>10-37</td> </tr> <tr> <td>ALT/SGPT</td> <td>16 Units/L</td> <td>< 66</ td> </tr> <tr> <td>CARBON DIOXIDE</td> <td>28 mmol/L</td> <td>21-32</td> </tr> <tr> <td>TOTAL PROTEIN</td> <td>6.4 gm/dL</td> <td>6.4-8.2</td> </tr> <tr> <td>ALBUMIN</td> <td>3.3 gm/dL</td> <td> 3.4-5.0</td> </tr> <tr> <td>BILI TOTAL</td> <td> 1.6 mg/dL</td> <td>0.0-1.0</td> </tr> <tr> <td> ALKALINE PHOSPHATASE TOTAL</td> <td>56 IU/L</td> <td>45-117</ td> </tr> <tr> < colspan="10">PHOSPHORUS - 04/10/16 05: 18</th> </tr> <tr> <td>PHOSPHORUS</td> <td>3.5 mg/dL</td> <td>2.5-4.9</td> </tr> <tr> < colspan="10">MAGNESIUM - 04/10/16 05:18</th> </tr> <tr> < td>MAGNESIUM</td> <td>2.1 mg/dL</td> <td>1.8-2.4</td> < /tr> <tr> < colspan="10">Complete urinalysis with reflex to culture - 04/29/17 14:52</th> </tr> <tr> <td>Urine color determination</td> <td>YELLOW </td> <td>NRG</td> </tr> <tr> <td>Urine clarity determination</td> <td>CLEAR </ td> <td>NRG</td> </tr> <tr> <td>Urine pH measurement by test strip</td> <td>6 </td> <td>5-9</td> </tr> <tr> <td>Specific gravity of urine by test strip</td> <td>1.020 </td> <td>1.016-1.022</td> </tr> <tr> <td>Urine protein assay by test strip, semi-quantitative</td> <td>1+ </td> <td>NEGATIVE</td> </tr> <tr> <td> Urine glucose detection by automated test strip</td> <td>NEGATIVE </td > <td>NEGATIVE</td> </tr> <tr> <td>Erythrocytes detection in urine sediment by light microscopy</td> <td>3+ </td> <td>NEGATIVE</td> </tr> <tr> <td>Urine ketones detection by automated test strip</td> <td>2+ </td> <td> NEGATIVE</td> </tr> <tr> <td>Urine nitrite detection by test strip</td> <td>NEGATIVE </td> <td>NEGATIVE</td> </ tr> <tr> <td>Urine total bilirubin detection by test strip</td> <td>NEGATIVE </td> <td>NEGATIVE</td> </tr> <tr > <td>Urine urobilinogen measurement by automated test strip (mass/ volume)</td> <td>NORMAL </td> <td>NORMAL</td> </tr> <tr> <td>Urine leukocyte esterase detection by dipstick</td> <td>1+ </td> <td>NEGATIVE</td> </tr> <tr> < td>Automated urine sediment erythrocyte count by microscopy (number/high power field)</td> <td> [HPF]</td> <td>NRG</td> </tr> < tr> <td>Automated urine sediment leukocyte count by microscopy (number/ high power field)</td> <td> [HPF]</td> <td>NRG</td> </ tr> <tr> <td>Bacteria detection in urine sediment by light microscopy</td> <td>FEW </td> <td>NRG</td> </tr> <tr> <td>Squamous epithelial cells detection in urine sediment by light microscopy</td> <td>25-50 </td> <td>NRG</td> </tr > <tr> <td>Crystals detection in urine sediment by light microscopy</td> <td>NONE </td> <td>NRG</td> </tr> <tr> <td>Casts detection in urine sediment by light microscopy</td> <td>NONE </td> <td>NRG</td> </tr> <tr> <td>Mucus detection in urine sediment by light microscopy</td> <td> MODERATE </td> <td>NRG</td> </tr> <tr> <td> Complete urinalysis with reflex to culture</td> <td>NO </td> < td>NRG</td> </tr> <tr> < colspan="10">Complete blood count (CBC) with automated white blood cell (WBC) differential - 04/29/17 15:20< /th> </tr> <tr> <td>Blood leukocytes automated count ( number/volume)</td> <td>10.4 10*3/uL</td> <td>4.3-11.0</td> </tr> <tr> <td>Blood erythrocytes automated count (number/ volume)</td> <td>4.34 10*6/uL</td> <td>4.35-5.85</td> < /tr> <tr> <td>Venous blood hemoglobin measurement (mass/volume)< /td> <td>12.9 g/dL</td> <td>11.5-16.0</td> </tr> <tr> <td>Blood hematocrit (volume fraction)</td> <td>38 &#37 ;</td> <td>35-52</td> </tr> <tr> <td>Automated erythrocyte mean corpuscular volume</td> <td>86 [foz_us]</td> <td>80-99</td> </tr> <tr> <td>Automated erythrocyte mean corpuscular hemoglobin (mass per erythrocyte)</td> <td>30 pg</td> <td>25-34</td> </tr> <tr> <td>Automated erythrocyte mean corpuscular hemoglobin concentration measurement (mass/volume)</td> <td>34 g/dL</td> <td>32-36</td> </tr> <tr> < td>Automated erythrocyte distribution width ratio</td> <td>12.0 %</ td> <td>10.0-14.5</td> </tr> <tr> <td>Automated blood platelet count (count/volume)</td> <td>230 10*3/uL</td> <td>130-400</td> </tr> <tr> <td>Automated blood platelet mean volume measurement</td> <td>9.8 [foz_us]</td> <td>7.4- 10.4</td> </tr> <tr> <td>Automated blood neutrophils/100 leukocytes</td> <td>74 %</td> <td>42-75</td> </tr> <tr> <td>Automated blood lymphocytes/100 leukocytes</td> <td>18 %</td> <td>12-44</td> </tr> <tr> <td>Blood monocytes/100 leukocytes</td> <td>7 %</td> <td>0 -12</td> </tr> <tr> <td>Automated blood eosinophils/100 leukocytes</td> <td>0 %</td> <td>0-10</td> </tr> <tr> <td>Automated blood basophils/100 leukocytes</td> < td>0 %</td> <td>0-10</td> </tr> <tr> <td> Blood neutrophils automated count (number/volume)</td> <td>7.7 10*3</td > <td>1.8-7.8</td> </tr> <tr> <td>Blood lymphocytes automated count (number/volume)</td> <td>1.9 10*3</td> <td>1.0-4.0</td> </tr> <tr> <td>Blood monocytes automated count (number/volume)</td> <td>0.7 10*3</td> <td>0.0 -1.0</td> </tr> <tr> <td>Automated eosinophil count</td> <td>0.0 10*3/uL</td> <td>0.0-0.3</td> </tr> <tr > <td>Automated blood basophil count (count/volume)</td> <td> 0.0 10*3/uL</td> <td>0.0-0.1</td> </tr> <tr> < colspan="10">Comprehensive metabolic panel - 04/29/17 15:20</th> </tr > <tr> <td>Serum or plasma sodium measurement (moles/volume)</td > <td>138 mmol/L</td> <td>135-145</td> </tr> <tr > <td>Serum or plasma potassium measurement (moles/volume)</td> <td>3.4 mmol/L</td> <td>3.6-5.0</td> </tr> <tr> <td>Serum or plasma chloride measurement (moles/volume)</td> <td> 104 mmol/L</td> <td>98-107</td> </tr> <tr> <td> Carbon dioxide</td> <td>24 mmol/L</td> <td>21-32</td> < /tr> <tr> <td>Serum or plasma anion gap determination (moles/ volume)</td> <td>10 mmol/L</td> <td>5-14</td> </tr> <tr> <td>Serum or plasma urea nitrogen measurement (mass/volume)</ td> <td>14 mg/dL</td> <td>7-18</td> </tr> <tr> <td>Serum or plasma creatinine measurement (mass/volume)</td> <td>0.86 mg/dL</td> <td>0.60-1.30</td> </tr> <tr> <td>Serum or plasma urea nitrogen/creatinine mass ratio</td> <td>16 </td> <td>NRG</td> </tr> <tr> <td>Serum or plasma creatinine measurement with calculation of estimated glomerular filtration rate</td> <td>> </td> <td>NRG</td> </tr> <tr> <td>Serum or plasma glucose measurement (mass/volume)</td > <td>78 mg/dL</td> <td>70-105</td> </tr> <tr> <td>Serum or plasma calcium measurement (mass/volume)</td> <td >8.8 mg/dL</td> <td>8.5-10.1</td> </tr> <tr> <td >Serum or plasma total bilirubin measurement (mass/volume)</td> <td> 1.7 mg/dL</td> <td>0.1-1.0</td> </tr> <tr> <td> Serum or plasma alkaline phosphatase measurement (enzymatic activity/volume)</td > <td>53 U/L</td> <td>40-136</td> </tr> <tr> <td>Serum or plasma aspartate aminotransferase measurement (enzymatic activity/volume)</td> <td>15 U/L</td> <td>5-34</td> </ tr> <tr> <td>Serum or plasma alanine aminotransferase measurement (enzymatic activity/volume)</td> <td>15 U/L</td> < td>0-55</td> </tr> <tr> <td>Serum or plasma protein measurement (mass/volume)</td> <td>6.7 g/dL</td> <td>6.4-8.2</ td> </tr> <tr> <td>Serum or plasma albumin measurement ( mass/volume)</td> <td>4.0 g/dL</td> <td>3.2-4.5</td> </ tr> <tr> <th colspan="10">Lipase - 04/29/17 15:20</th> </ tr> <tr> <td>Lipase</td> <td>23 U/L</td> <td>8 -78</td> </tr> <tr> < colspan="10">Serum or plasma choriogonadotropin measurement (units/volume) - 04/29/17 15:20</th> </tr > <tr> <td>Serum or plasma choriogonadotropin measurement (units /volume)</td> <td>402 m[iU]/mL</td> <td><5</td> </tr > <tr> <th colspan="10">Serum or plasma choriogonadotropin measurement (units/volume) - 05/01/17 10:37</th> </tr> <tr> <td>Serum or plasma choriogonadotropin measurement (units/volume)</td> <td>149 m[iU]/mL</td> <td><5</td> </tr> </tbody> </table> </text> <entry> <organizer moodCode="EVN" classCode="BATTERY"> <templateId root="[id number]" /> <id nullFlavor= "NA" /> <code codeSystem="local" code="UC" displayName="URINE CULTURE" /> <statusCode code="completed" /> <component> <observation moodCode="EVN" classCode="OBS"> <templateId root= "2.16.840.1.362444.10.20.22.4.2" /> <id nullFlavor="NA" /> < code codeSystem="local" code="MB" displayName="Microbiology" /> < statusCode code="completed" /> <effectiveTime value="[id number]" /> <value xsi:type="ST" value="<pre><b>URINE CULTURE</b> See BelowURINE CULTURE(F) Franko Date/Time: 01/31/2016 19:18 Luly Date/Time: 2016 08:28SOURCE: URINESPEC DESC: CLEAN CATCHTREATMENT OF ASYMPTOMATIC BACTERIURIA IS NOT USUALLYCLINICALLY INDICATED.MIXED GRAM POSITIVE?MIXED GRAM POSITIVE BACTERIAGROUP B STREP? .INCLUDING [facility] [place] [address]</pre>" /> <referenceRange> <observationRange> <text /> </observationRange> </referenceRange> </observation> </component> </organizer> </entry> <entry> < organizer moodCode="EVN" classCode="BATTERY"> <templateId root= "216.840.1.941693.10...4.1" /> <id nullFlavor="NA" /> <code codeSystem="local" code="UA" displayName="URINALYSIS, ROUTINE" /> < statusCode code="completed" /> <component> <observation moodCode= "EVN" classCode="OBS"> <templateId root="05.07.840.1.426808.01.08.22.4.2 " /> <id nullFlavor="NA" /> <code codeSystem="local" code= "LEUESU" displayName="UA LEUKOCYTE ESTERASE DIPSTICK" /> <statusCode code="completed" /> <effectiveTime value="" /> < value unit="" xsi:type="PQ" value="TRACE" /> <referenceRange> <observationRange> <text>NEGATIVE</text> </ observationRange> </referenceRange> </observation> </ component> <component> <observation moodCode="EVN" classCode="OBS"> <templateId root="16.840.1.648249.01.08.22.4.2" /> <id nullFlavor="NA" /> <code codeSystem="local" code="NITRIU" displayName= "UA NITRITE DIPSTICK" /> <statusCode code="completed" /> < effectiveTime value="" /> <value unit="" xsi:type="PQ" value="NEGATIVE" /> <referenceRange> <observationRange> <text>NEGATIVE</text> </observationRange> </ referenceRange> </observation> </component> <component> <observation moodCode="EVN" classCode="OBS"> <templateId root= "216.840.1.139939...4.2" /> <id nullFlavor="NA" /> < code codeSystem="local" code="PROTEIU" displayName="UA PROTEIN DIPSTICK" /> <statusCode code="completed" /> <effectiveTime value= "" /> <value unit="" xsi:type="PQ" value="NEGATIVE" /> <referenceRange> <observationRange> <text>NEGATIVE </text> </observationRange> </referenceRange> </ observation> </component> <component> <observation moodCode= "EVN" classCode="OBS"> <templateId root="16.840.1.712735.10..22.4.2 " /> <id nullFlavor="NA" /> <code codeSystem="local" code= "DGLUU" displayName="UA GLUCOSE DIPSTICK" /> <statusCode code= "completed" /> <effectiveTime value="" /> <value unit="" xsi:type="PQ" value="NEGATIVE" /> <referenceRange> < observationRange> <text>NEGATIVE</text> </ observationRange> </referenceRange> </observation> </ component> <component> <observation moodCode="EVN" classCode="OBS"> <templateId root="16.840.1.323721.10..22.4.2" /> <id nullFlavor="NA" /> <code codeSystem="local" code="KETONU" displayName= "UA KETONE DIPSTICK" /> <statusCode code="completed" /> < effectiveTime value="" /> <value unit="" xsi:type="PQ" value="NEGATIVE" /> <referenceRange> <observationRange> <text>NEGATIVE</text> </observationRange> </ referenceRange> </observation> </component> <component> <observation moodCode="EVN" classCode="OBS"> <templateId root= "05.07.840.1.968775.22.4.2" /> <id nullFlavor="NA" /> < code codeSystem="local" code="UROBILU" displayName="UA UROBILINOGEN DIPSTICK" / > <statusCode code="completed" /> <effectiveTime value= "" /> <value unit="" xsi:type="PQ" value="NORMAL" /> <referenceRange> <observationRange> <text>NORMAL</ text> </observationRange> </referenceRange> </ observation> </component> <component> <observation moodCode= "EVN" classCode="OBS"> <templateId root="216.840.1.664252.01.08.22.4.2 " /> <id nullFlavor="NA" /> <code codeSystem="local" code= "BILU" displayName="UA BILIRUBIN DIPSTICK" /> <statusCode code= "completed" /> <effectiveTime value="" /> <value unit="" xsi:type="PQ" value="NEGATIVE" /> <referenceRange> < observationRange> <text>NEGATIVE</text> </ observationRange> </referenceRange> </observation> </ component> <component> <observation moodCode="EVN" classCode="OBS"> <templateId root="216.840.1.671977.01.08.22.4.2" /> <id nullFlavor="NA" /> <code codeSystem="local" code="BREANNA" displayName="UA BLOOD DIPSTICK" /> <statusCode code="completed" /> < effectiveTime value="" /> <value unit="" xsi:type="PQ" value="1+" /> <interpretationCode codeSystem="local" code="*" /> <referenceRange> <observationRange> <text>NEGATIVE</ text> </observationRange> </referenceRange> </ observation> </component> <component> <observation moodCode= "EVN" classCode="OBS"> <templateId root="2.16.840.1.843456.10..4.2 " /> <id nullFlavor="NA" /> <code codeSystem="local" code= "SPGRU" displayName="UA SPECIFIC GRAVITY" /> <statusCode code= "completed" /> <effectiveTime value="" /> <value unit="" xsi:type="PQ" value=">=1.030" /> <interpretationCode codeSystem="local" code="*" /> <referenceRange> < observationRange> <text>1.015-1.025</text> </ observationRange> </referenceRange> </observation> </ component> <component> <observation moodCode="EVN" classCode="OBS"> <templateId root="216.840.1.385067.01.08.22.4.2" /> <id nullFlavor="NA" /> <code codeSystem="local" code="CLOVER" displayName="UR PH" /> <statusCode code="completed" /> <effectiveTime value= "" /> <value unit="" xsi:type="PQ" value="5.5" /> <referenceRange> <observationRange> <text>5.0-7.0</text > </observationRange> </referenceRange> </observation > </component> </organizer> </entry> <entry> <organizer moodCode= "EVN" classCode="BATTERY"> <templateId root="2.16.840.1.044073..22.4.1 " /> <id nullFlavor="NA" /> <code codeSystem="local" code="UAMICRO" displayName="UA MICROSCOPIC" /> <statusCode code="completed" /> < component> <observation moodCode="EVN" classCode="OBS"> < templateId root="16.840.1.304664.10..22.4.2" /> <id nullFlavor="NA " /> <code codeSystem="local" code="BACU" displayName="UA BACTERIA" /> <statusCode code="completed" /> <effectiveTime value= "" /> <value unit="" xsi:type="PQ" value="1+" /> < interpretationCode codeSystem="local" code="*" /> <referenceRange> <observationRange> <text>NEGATIVE</text> </ observationRange> </referenceRange> </observation> </ component> <component> <observation moodCode="EVN" classCode="OBS"> <templateId root="05.07.840.1.891160.10..4.2" /> <id nullFlavor="NA" /> <code codeSystem="local" code="EPIU" displayName=" UA EPITHELIAL CELLS" /> <statusCode code="completed" /> < effectiveTime value="" /> <value unit="epi/hpf" xsi:type= "PQ" value="3+" /> <interpretationCode codeSystem="local" code="*" /> <referenceRange> <observationRange> <text>0 - 1 +</text> </observationRange> </referenceRange> </ observation> </component> <component> <observation moodCode= "EVN" classCode="OBS"> <templateId root="16.840.1.212710...4.2 " /> <id nullFlavor="NA" /> <code codeSystem="local" code= "MUCUSU" displayName="UA MUCUS" /> <statusCode code="completed" /> <effectiveTime value="" /> <value unit="" xsi:type= "PQ" value="3+" /> <interpretationCode codeSystem="local" code="*" /> <referenceRange> <observationRange> <text>NEG TO 1+</text> </observationRange> </referenceRange> </ observation> </component> <component> <observation moodCode= "EVN" classCode="OBS"> <templateId root="216.840.1.135876.10.22.4.2 " /> <id nullFlavor="NA" /> <code codeSystem="local" code= "RBCU" displayName="UA RBC" /> <statusCode code="completed" /> <effectiveTime value="" /> <value unit="rbc/hpf" xsi:type ="PQ" value="3-5" /> <interpretationCode codeSystem="local" code="*" / > <referenceRange> <observationRange> <text>0 - 3</text> </observationRange> </referenceRange> </ observation> </component> <component> <observation moodCode= "EVN" classCode="OBS"> <templateId root="05.07.840.1.828670.01.08.22.4.2 " /> <id nullFlavor="NA" /> <code codeSystem="local" code= "UAVOL" displayName="UA VOLUME FOR EXAM" /> <statusCode code="completed " /> <effectiveTime value="" /> <value unit="mL" xsi:type="PQ" value="12.0" /> <referenceRange> < observationRange> <text>(12mL STD)</text> </ observationRange> </referenceRange> </observation> </ component> <component> <observation moodCode="EVN" classCode="OBS"> <templateId root="216.840.1.626141..22.4.2" /> <id nullFlavor="NA" /> <code codeSystem="local" code="WBCU" displayName=" UA WBC" /> <statusCode code="completed" /> <effectiveTime value="" /> <value unit="wbc/hpf" xsi:type="PQ" value="20- 50" /> <interpretationCode codeSystem="local" code="*" /> < referenceRange> <observationRange> <text>0 - 5</text> </observationRange> </referenceRange> </observation> </component> </organizer> </entry> <entry> <organizer moodCode="EVN " classCode="BATTERY"> <templateId root="216.840.1.639727.10..22.4.1" / > <id nullFlavor="NA" /> <code codeSystem="local" code="PREGU" displayName="UR TEST" /> <statusCode code="completed" /> < component> <observation moodCode="EVN" classCode="OBS"> < templateId root="216.840.1.897299.10..22.4.2" /> <id nullFlavor="NA " /> <code codeSystem="local" code="PREGU" displayName="UR TEST" /> <statusCode code="completed" /> <effectiveTime value= "" /> <value unit="" xsi:type="PQ" value="NEGATIVE" /> <referenceRange> <observationRange> <text>NEGATIVE </text> </observationRange> </referenceRange> </ observation> </component> </organizer> </entry> <entry> <organizer moodCode="EVN" classCode="BATTERY"> <templateId root= "216.840.1.915911.10..22.4.1" /> <id nullFlavor="NA" /> <code codeSystem="local" code="DRUGAB" displayName="UR DRUGS OF ABUSE SCREEN" /> <statusCode code="completed" /> <component> <observation moodCode= "EVN" classCode="OBS"> <templateId root="2.16.840.1.464827.10..4.2 " /> <id nullFlavor="NA" /> <code codeSystem="local" code= "AMPHU" displayName="UR AMPHETAMINES SCREEN" /> <statusCode code= "completed" /> <effectiveTime value="" /> <value unit="" xsi:type="PQ" value="NEG (<1000 ng/mL)" /> <referenceRange > <observationRange> <text>NEGATIVE</text> </ observationRange> </referenceRange> </observation> </ component> <component> <observation moodCode="EVN" classCode="OBS"> <templateId root="216.840.1.125064.01.08.22.4.2" /> <id nullFlavor="NA" /> <code codeSystem="local" code="BARBU" displayName= "UR BARBITURATE SCREEN" /> <statusCode code="completed" /> < effectiveTime value="" /> <value unit="" xsi:type="PQ" value="NEG (< 200 ng/mL)" /> <referenceRange> < observationRange> <text>NEGATIVE</text> </ observationRange> </referenceRange> </observation> </ component> <component> <observation moodCode="EVN" classCode="OBS"> <templateId root="216.840.1.102996...4.2" /> <id nullFlavor="NA" /> <code codeSystem="local" code="DAUCOMMENT" displayName="DRUGS OF ABUSE SCREEN COMMENT" /> <statusCode code= "completed" /> <effectiveTime value="" /> <value unit="" xsi:type="PQ" value="" /> <referenceRange> < observationRange> <text /> </observationRange> </referenceRange> </observation> </component> <component> <observation moodCode="EVN" classCode="OBS"> <templateId root= "216.840.1.077713.10..22.4.2" /> <id nullFlavor="NA" /> < code codeSystem="local" code="OPIU" displayName="UR OPIATES SCREEN" /> <statusCode code="completed" /> <effectiveTime value="" /> <value unit="" xsi:type="PQ" value="NEG (< 300 ng/mL)" /> <referenceRange> <observationRange> <text>NEGATIVE</ text> </observationRange> </referenceRange> </ observation> </component> <component> <observation moodCode= "EVN" classCode="OBS"> <templateId root="16.840.1.191091.10...4.2 " /> <id nullFlavor="NA" /> <code codeSystem="local" code= "PCPU" displayName="UR PHENCYCLIDINE (PCP) SCREEN" /> <statusCode code= "completed" /> <effectiveTime value="" /> <value unit="" xsi:type="PQ" value="NEG (< 25 ng/mL)" /> <referenceRange > <observationRange> <text>NEGATIVE</text> </ observationRange> </referenceRange> </observation> </ component> <component> <observation moodCode="EVN" classCode="OBS"> <templateId root="216.840.1.511911.10..22.4.2" /> <id nullFlavor="NA" /> <code codeSystem="local" code="THCU" displayName=" UR CANNABINOIDS (THC) SCREEN" /> <statusCode code="completed" /> <effectiveTime value="" /> <value unit="" xsi:type="PQ " value="POS (> 50 ng/mL)" /> <interpretationCode codeSystem= "local" code="*" /> <referenceRange> <observationRange> <text>NEGATIVE</text> </observationRange> </ referenceRange> </observation> </component> <component> <observation moodCode="EVN" classCode="OBS"> <templateId root= "2.16.840.1.844036.10..22.4.2" /> <id nullFlavor="NA" /> < code codeSystem="local" code="COCAU" displayName="UR COCAINE METABOLITE SCREEN" /> <statusCode code="completed" /> <effectiveTime value= "" /> <value unit="" xsi:type="PQ" value="POS (> 300 ng /mL)" /> <interpretationCode codeSystem="local" code="*" /> < referenceRange> <observationRange> <text>NEGATIVE</text > </observationRange> </referenceRange> </observation > </component> <component> <observation moodCode="EVN" classCode="OBS"> <templateId root="2.16.840.1.755069.10.2022.4.2" /> <id nullFlavor="NA" /> <code codeSystem="local" code="METHU" displayName="UR METHADONE SCREEN" /> <statusCode code="completed" /> <effectiveTime value="" /> <value unit="" xsi:type= "PQ" value="NEG (< 300 ng/mL)" /> <referenceRange> < observationRange> <text>NEGATIVE</text> </ observationRange> </referenceRange> </observation> </ component> <component> <observation moodCode="EVN" classCode="OBS"> <templateId root="2.16.840.1.213052.10.20.22.4.2" /> <id nullFlavor="NA" /> <code codeSystem="local" code="BENZU" displayName= "UR BENZODIAZEPINE SCREEN" /> <statusCode code="completed" /> <effectiveTime value="" /> <value unit="" xsi:type="PQ" value="NEG (< 200 ng/mL)" /> <referenceRange> < observationRange> <text>NEGATIVE</text> </ observationRange> </referenceRange> </observation> </ component> </organizer> </entry> <entry> <organizer moodCode="EVN" classCode="BATTERY"> <templateId root="2.16.840.1.256358.10.20.22.4.1" /> <id nullFlavor="NA" /> <code codeSystem="local" code="CHL" displayName ="CHLAMYDIA DNA BY PCR" /> <statusCode code="completed" /> <component > <observation moodCode="EVN" classCode="OBS"> <templateId root= "2.16.840.1.509547.10.20.22.4.2" /> <id nullFlavor="NA" /> < code codeSystem="local" code="MB" displayName="Microbiology" /> < statusCode code="completed" /> <effectiveTime value="[id number]" /> <value xsi:type="ST" value="<pre><b>CHLAMYDIA DNA BY PCR - GONORRHOEA DNA BY PCR</b> See BelowCHLAMYDIA DNA BY PCR(F) Franko Date/Time: 2015 19:31 Luly Date/Time: 02/03/2016 13:22SOURCE : URINESPEC DESC: NNEGATIVEWES[address] [address]Bbu BelowGONORRHOEA DNA BY PCR(F) Franko Date/Time: 01/31/2016 19:31 Luly Date/Time: 02/03/2016 13:22SOURCE: URINESPEC DESC: NNEGATIVE[address] [address]</ pre>" /> <referenceRange> <observationRange> < text /> </observationRange> </referenceRange> </ observation> </component> </organizer> </entry> <entry> <organizer moodCode="EVN" classCode="BATTERY"> <templateId root= "2.16.840.1.145117.10.20.22.4.1" /> <id nullFlavor="NA" /> <code codeSystem="local" code="WET" displayName="WET MOUNT" /> <statusCode code= "completed" /> <component> <observation moodCode="EVN" classCode= "OBS"> <templateId root="2.16.840.1.788941.10.20.22.4.2" /> < id nullFlavor="NA" /> <code codeSystem="local" code="MB" displayName= "Microbiology" /> <statusCode code="completed" /> < effectiveTime value="[id number]" /> <value xsi:type="ST" value="<pre> <b>WET MOUNT</b> See Below: [facility] room 47 jkgWET MOUNT(F) Franko Date/Time: 01/31/2016 20:00 Luly Date/Time: 2015 21:01SOURCE: VAGINALSPEC DESC: CLUE CELLSNO CLUE CELLS SEENTRICHOMONASNO TRICHOMONAS SEENYEAST (Abnormal)MANY YEAST (Abnormal)[address] [address]</pre>" /> <referenceRange > <observationRange> <text /> </ observationRange> </referenceRange> </observation> </ component> </organizer> </entry> <entry> <organizer moodCode="EVN" classCode="BATTERY"> <templateId root="2.16.840.1.242541.10.20.22.4.1" /> <id nullFlavor="NA" /> <code codeSystem="local" code="GRAM" displayName="GRAM STAIN - CHLAMYDIA DNA BY PCR" /> <statusCode code= "completed" /> <component> <observation moodCode="EVN" classCode= "OBS"> <templateId root="2.16.840.1.173996.10...4.2" /> < id nullFlavor="NA" /> <code codeSystem="local" code="MB" displayName= "Microbiology" /> <statusCode code="completed" /> < effectiveTime value="[id number]" /> <value xsi:type="ST" value="<pre> <b>GRAM STAIN</b> See Below: [facility] room 47 jkgGRAM STAIN(F) Franko Date/Time: 01/31/2016 20:00 Luly Date/Time: 01/31/2016 21:03SOURCE: VAGINALSPEC DESC: GRAM STAINRARE NEUTROPHILSNO ORGANISMS SEEN RESEMBLING NEISSERIA GONORRHOEAEMANY GRAM POSITIVE BACILLI RESEMBLING LACTOBACILLUST[facility]ENTER[address] [place] [address]</ pre>" /> <referenceRange> <observationRange> < text /> </observationRange> </referenceRange> </ observation> </component> </organizer> </entry> <entry> <organizer moodCode="EVN" classCode="BATTERY"> <templateId root= "2.16.840.1.823370.10..22.4.1" /> <id nullFlavor="NA" /> <code codeSystem="local" code="iCHEM8" displayName="CHEM/HEM PROFILE-BEDSIDE" /> <statusCode code="completed" /> <component> <observation moodCode= "EVN" classCode="OBS"> <templateId root="216.840.1.383718.10.4.2 " /> <id nullFlavor="NA" /> <code codeSystem="local" code="K" displayName="POTASSIUM" /> <statusCode code="completed" /> < effectiveTime value="" /> <value unit="mmol/L" xsi:type="PQ " value="3.5" /> <referenceRange> <observationRange> <text>3.5-5.3</text> </observationRange> </ referenceRange> </observation> </component> <component> <observation moodCode="EVN" classCode="OBS"> <templateId root= "216.840.1.728947.01.08.22.4.2" /> <id nullFlavor="NA" /> < code codeSystem="local" code="CMETHOD" displayName="METHOD" /> < statusCode code="completed" /> <effectiveTime value="" /> <value unit="" xsi:type="PQ" value="Bedside" /> < referenceRange> <observationRange> <text /> < /observationRange> </referenceRange> </observation> </ component> <component> <observation moodCode="EVN" classCode="OBS"> <templateId root="16.840.1.544461.01.08.22.4.2" /> <id nullFlavor="NA" /> <code codeSystem="local" code="GAP" displayName= "ANION GAP" /> <statusCode code="completed" /> <effectiveTime value="[id number]" /> <value unit="mmol/L" xsi:type="PQ" value="0" / > <interpretationCode codeSystem="local" code="*" /> < referenceRange> <observationRange> <text>10-20</text> </observationRange> </referenceRange> </observation> </component> <component> <observation moodCode="EVN" classCode= "OBS"> <templateId root="216.840.1.476532.10..22.4.2" /> < id nullFlavor="NA" /> <code codeSystem="local" code="HMETHOD" displayName="METHOD" /> <statusCode code="completed" /> < effectiveTime value="" /> <value unit="" xsi:type="PQ" value="Bedside" /> <referenceRange> <observationRange> <text /> </observationRange> </referenceRange> </observation> </component> <component> <observation moodCode="EVN" classCode="OBS"> <templateId root= "216.840.1.650176.10...4.2" /> <id nullFlavor="NA" /> < code codeSystem="local" code="GLU" displayName="GLUCOSE" /> < statusCode code="completed" /> <effectiveTime value="" /> <value unit="mg/dL" xsi:type="PQ" value="95" /> < referenceRange> <observationRange> <text>70-99</text> </observationRange> </referenceRange> </observation> </component> <component> <observation moodCode="EVN" classCode= "OBS"> <templateId root="216.840.1.534581.10.22.4.2" /> < id nullFlavor="NA" /> <code codeSystem="local" code="BUN" displayName= "BLOOD UREA NITROGEN" /> <statusCode code="completed" /> < effectiveTime value="[id number]" /> <value unit="mg/dL" xsi:type="PQ " value="16" /> <referenceRange> <observationRange> <text>7-20</text> </observationRange> </referenceRange > </observation> </component> <component> <observation moodCode="EVN" classCode="OBS"> <templateId root= "216.840.1.424592.10.4.2" /> <id nullFlavor="NA" /> < code codeSystem="local" code="CREAT" displayName="CREATININE" /> < statusCode code="completed" /> <effectiveTime value="" /> <value unit="mg/dL" xsi:type="PQ" value="0.8" /> < referenceRange> <observationRange> <text>0.6-1.0</text> </observationRange> </referenceRange> </observation > </component> <component> <observation moodCode="EVN" classCode="OBS"> <templateId root="05.07.840.1.269184.01.08.22.4.2" /> <id nullFlavor="NA" /> <code codeSystem="local" code="HGBT" displayName="HEMOGLOBIN" /> <statusCode code="completed" /> < effectiveTime value="" /> <value unit="gm/dL" xsi:type="PQ " value="12.6" /> <referenceRange> <observationRange> <text>12.0-16.0</text> </observationRange> </ referenceRange> </observation> </component> <component> <observation moodCode="EVN" classCode="OBS"> <templateId root= "16.840.1.953470.01.08.22.4.2" /> <id nullFlavor="NA" /> < code codeSystem="local" code="HCTT" displayName="HEMATOCRIT" /> < statusCode code="completed" /> <effectiveTime value="" /> <value unit="%" xsi:type="PQ" value="37.0" /> < referenceRange> <observationRange> <text>37.0-47.0</text > </observationRange> </referenceRange> </observation > </component> <component> <observation moodCode="EVN" classCode="OBS"> <templateId root="216.840.1.787850.10..22.4.2" /> <id nullFlavor="NA" /> <code codeSystem="local" code="NA" displayName="SODIUM" /> <statusCode code="completed" /> < effectiveTime value="" /> <value unit="mmol/L" xsi:type="PQ " value="141" /> <referenceRange> <observationRange> <text>135-148</text> </observationRange> </ referenceRange> </observation> </component> <component> <observation moodCode="EVN" classCode="OBS"> <templateId root= "05.07.840.1.454144...4.2" /> <id nullFlavor="NA" /> < code codeSystem="local" code="CL" displayName="CHLORIDE" /> < statusCode code="completed" /> <effectiveTime value="038208287821" /> <value unit="mmol/L" xsi:type="PQ" value="102" /> < referenceRange> <observationRange> <text>98-110</text> </observationRange> </referenceRange> </observation> </component> <component> <observation moodCode="EVN" classCode ="OBS"> <templateId root="05.07.840.1.367078.10.20.22.4.2" /> < id nullFlavor="NA" /> <code codeSystem="local" code="CO2" displayName= "CARBON DIOXIDE" /> <statusCode code="completed" /> < effectiveTime value="808326612079" /> <value unit="mmol/L" xsi:type="PQ " value="43" /> <interpretationCode codeSystem="local" code="*" /> <referenceRange> <observationRange> <text>21-32</ text> </observationRange> </referenceRange> </ observation> </component> <component> <observation moodCode= "EVN" classCode="OBS"> <templateId root="05.07.840.1.331172.10..4.2 " /> <id nullFlavor="NA" /> <code codeSystem="local" code= "CAION" displayName="CALCIUM IONIZED" /> <statusCode code="completed" / > <effectiveTime value="072024320742" /> <value unit="mg/dL" xsi:type="PQ" value="4.7" /> <referenceRange> < observationRange> <text>4.5-5.3</text> </ observationRange> </referenceRange> </observation> </ component> </organizer> </entry> <entry> <organizer moodCode="EVN" classCode="BATTERY"> <templateId root="05.07.840.1.287308.10..22.4.1" /> <id nullFlavor="NA" /> <code codeSystem="local" code="UA" displayName= "URINALYSIS, ROUTINE" /> <statusCode code="completed" /> <component> <observation moodCode="EVN" classCode="OBS"> <templateId root= "05.07.840.1.568618.22.4.2" /> <id nullFlavor="NA" /> < code codeSystem="local" code="LEUESU" displayName="UA LEUKOCYTE ESTERASE DIPSTICK" /> <statusCode code="completed" /> <effectiveTime value="101800424859" /> <value unit="" xsi:type="PQ" value="NEGATIVE" / > <referenceRange> <observationRange> <text> NEGATIVE</text> </observationRange> </referenceRange> </observation> </component> <component> <observation moodCode ="EVN" classCode="OBS"> <templateId root= "16.840.1.185579.10...4.2" /> <id nullFlavor="NA" /> < code codeSystem="local" code="NITRIU" displayName="UA NITRITE DIPSTICK" /> <statusCode code="completed" /> <effectiveTime value=" " /> <value unit="" xsi:type="PQ" value="NEGATIVE" /> < referenceRange> <observationRange> <text>NEGATIVE</text > </observationRange> </referenceRange> </observation > </component> <component> <observation moodCode="EVN" classCode="OBS"> <templateId root="16.840.1.122691.10..4.2" /> <id nullFlavor="NA" /> <code codeSystem="local" code="PROTEIU " displayName="UA PROTEIN DIPSTICK" /> <statusCode code="completed" /> <effectiveTime value="" /> <value unit="" xsi: type="PQ" value="1+" /> <interpretationCode codeSystem="local" code="* " /> <referenceRange> <observationRange> <text> NEGATIVE</text> </observationRange> </referenceRange> </observation> </component> <component> <observation moodCode ="EVN" classCode="OBS"> <templateId root= "16.840.1.729279.10..22.4.2" /> <id nullFlavor="NA" /> < code codeSystem="local" code="DGLUU" displayName="UA GLUCOSE DIPSTICK" /> <statusCode code="completed" /> <effectiveTime value="062012626934 " /> <value unit="" xsi:type="PQ" value="NEGATIVE" /> < referenceRange> <observationRange> <text>NEGATIVE</text > </observationRange> </referenceRange> </observation > </component> <component> <observation moodCode="EVN" classCode="OBS"> <templateId root="216.840.1.663436.10.20.22.4.2" /> <id nullFlavor="NA" /> <code codeSystem="local" code="KETONU" displayName="UA KETONE DIPSTICK" /> <statusCode code="completed" /> <effectiveTime value="[id number]" /> <value unit="" xsi:type= "PQ" value="1+" /> <interpretationCode codeSystem="local" code="*" /> <referenceRange> <observationRange> <text> NEGATIVE</text> </observationRange> </referenceRange> </observation> </component> <component> <observation moodCode ="EVN" classCode="OBS"> <templateId root= "216.840.1.404229.10..22.4.2" /> <id nullFlavor="NA" /> < code codeSystem="local" code="UROBILU" displayName="UA UROBILINOGEN DIPSTICK" / > <statusCode code="completed" /> <effectiveTime value= "082328898081" /> <value unit="" xsi:type="PQ" value="NORMAL" /> <referenceRange> <observationRange> <text>NORMAL</ text> </observationRange> </referenceRange> </ observation> </component> <component> <observation moodCode= "EVN" classCode="OBS"> <templateId root="216.840.1.817396.10..22.4.2 " /> <id nullFlavor="NA" /> <code codeSystem="local" code= "BILU" displayName="UA BILIRUBIN DIPSTICK" /> <statusCode code= "completed" /> <effectiveTime value="" /> <value unit="" xsi:type="PQ" value="1+" /> <interpretationCode codeSystem= "local" code="*" /> <referenceRange> <observationRange> <text>NEGATIVE</text> </observationRange> </ referenceRange> </observation> </component> <component> <observation moodCode="EVN" classCode="OBS"> <templateId root= "05.07.840.1.628942.10..4.2" /> <id nullFlavor="NA" /> < code codeSystem="local" code="BREANNA" displayName="UA BLOOD DIPSTICK" /> < statusCode code="completed" /> <effectiveTime value="" /> <value unit="" xsi:type="PQ" value="NEGATIVE" /> < referenceRange> <observationRange> <text>NEGATIVE</text > </observationRange> </referenceRange> </observation > </component> <component> <observation moodCode="EVN" classCode="OBS"> <templateId root="16.840.1.616825.10..22.4.2" /> <id nullFlavor="NA" /> <code codeSystem="local" code="SPGRU" displayName="UA SPECIFIC GRAVITY" /> <statusCode code="completed" /> <effectiveTime value="336811575878" /> <value unit="" xsi:type= "PQ" value=">=1.030" /> <interpretationCode codeSystem="local" code= "*" /> <referenceRange> <observationRange> < text>1.015-1.025</text> </observationRange> </referenceRange > </observation> </component> <component> <observation moodCode="EVN" classCode="OBS"> <templateId root= "16.840.1.185670.10.2022.4.2" /> <id nullFlavor="NA" /> < code codeSystem="local" code="CLOVER" displayName="UR PH" /> <statusCode code="completed" /> <effectiveTime value="588026874267" /> < value unit="" xsi:type="PQ" value="5.5" /> <referenceRange> <observationRange> <text>5.0-7.0</text> </ observationRange> </referenceRange> </observation> </ component> </organizer> </entry> <entry> <organizer moodCode="EVN" classCode="BATTERY"> <templateId root="05.07.840.1.948483.10.22.4.1" /> <id nullFlavor="NA" /> <code codeSystem="local" code="UAMICRO" displayName="UA MICROSCOPIC" /> <statusCode code="completed" /> < component> <observation moodCode="EVN" classCode="OBS"> < templateId root="05.07.840.1.429129.10.2022.4.2" /> <id nullFlavor="NA " /> <code codeSystem="local" code="BACU" displayName="UA BACTERIA" /> <statusCode code="completed" /> <effectiveTime value= "112140593083" /> <value unit="" xsi:type="PQ" value="2+" /> < interpretationCode codeSystem="local" code="*" /> <referenceRange> <observationRange> <text>NEGATIVE</text> </ observationRange> </referenceRange> </observation> </ component> <component> <observation moodCode="EVN" classCode="OBS"> <templateId root="216.840.1.527314.10.4.2" /> <id nullFlavor="NA" /> <code codeSystem="local" code="EPIU" displayName=" UA EPITHELIAL CELLS" /> <statusCode code="completed" /> < effectiveTime value="" /> <value unit="epi/hpf" xsi:type= "PQ" value="1+" /> <referenceRange> <observationRange> <text>0 - 1+</text> </observationRange> </ referenceRange> </observation> </component> <component> <observation moodCode="EVN" classCode="OBS"> <templateId root= "05.07.840.1.705618.01.08.224.2" /> <id nullFlavor="NA" /> < code codeSystem="local" code="MUCUSU" displayName="UA MUCUS" /> < statusCode code="completed" /> <effectiveTime value="" /> <value unit="" xsi:type="PQ" value="4+" /> < interpretationCode codeSystem="local" code="*" /> <referenceRange> <observationRange> <text>NEG TO 1+</text> </ observationRange> </referenceRange> </observation> </ component> <component> <observation moodCode="EVN" classCode="OBS"> <templateId root="216.840.1.505154...4.2" /> <id nullFlavor="NA" /> <code codeSystem="local" code="RBCU" displayName=" UA RBC" /> <statusCode code="completed" /> <effectiveTime value="" /> <value unit="rbc/hpf" xsi:type="PQ" value="0-3 " /> <referenceRange> <observationRange> <text> 0 - 3</text> </observationRange> </referenceRange> </ observation> </component> <component> <observation moodCode= "EVN" classCode="OBS"> <templateId root="2.16.840.1.029975.10..22.4.2 " /> <id nullFlavor="NA" /> <code codeSystem="local" code= "UAVOL" displayName="UA VOLUME FOR EXAM" /> <statusCode code="completed " /> <effectiveTime value="947618872117" /> <value unit="mL" xsi:type="PQ" value="12.0" /> <referenceRange> < observationRange> <text>(12mL STD)</text> </ observationRange> </referenceRange> </observation> </ component> <component> <observation moodCode="EVN" classCode="OBS"> <templateId root="216.840.1.657169.10...4.2" /> <id nullFlavor="NA" /> <code codeSystem="local" code="WBCU" displayName=" UA WBC" /> <statusCode code="completed" /> <effectiveTime value="622060480248" /> <value unit="wbc/hpf" xsi:type="PQ" value="2-5 " /> <referenceRange> <observationRange> <text> 0 - 5</text> </observationRange> </referenceRange> </ observation> </component> </organizer> </entry> <entry> <organizer moodCode="EVN" classCode="BATTERY"> <templateId root= "216.840.1.736893.10..22.4.1" /> <id nullFlavor="NA" /> <code codeSystem="local" code="PREGU" displayName="UR TEST" /> < statusCode code="completed" /> <component> <observation moodCode= "EVN" classCode="OBS"> <templateId root="216.840.1.405246.10..22.4.2 " /> <id nullFlavor="NA" /> <code codeSystem="local" code= "PREGU" displayName="UR TEST" /> <statusCode code="completed " /> <effectiveTime value="238241595017" /> <value unit="" xsi :type="PQ" value="NEGATIVE" /> <referenceRange> < observationRange> <text>NEGATIVE</text> </ observationRange> </referenceRange> </observation> </ component> </organizer> </entry> <entry> <organizer moodCode="EVN" classCode="BATTERY"> <templateId root="216.840.1.283596.10..22.4.1" /> <id nullFlavor="NA" /> <code codeSystem="local" code="UA" displayName= "URINALYSIS, ROUTINE" /> <statusCode code="completed" /> <component> <observation moodCode="EVN" classCode="OBS"> <templateId root= "2.16.840.1.517518.10..22.4.2" /> <id nullFlavor="NA" /> < code codeSystem="local" code="LEUESU" displayName="UA LEUKOCYTE ESTERASE DIPSTICK" /> <statusCode code="completed" /> <effectiveTime value="597087791870" /> <value unit="" xsi:type="PQ" value="NEGATIVE" / > <referenceRange> <observationRange> <text> NEGATIVE</text> </observationRange> </referenceRange> </observation> </component> <component> <observation moodCode ="EVN" classCode="OBS"> <templateId root= "16.840.1.856931.10..22.4.2" /> <id nullFlavor="NA" /> < code codeSystem="local" code="NITRIU" displayName="UA NITRITE DIPSTICK" /> <statusCode code="completed" /> <effectiveTime value="877301188216 " /> <value unit="" xsi:type="PQ" value="NEGATIVE" /> < referenceRange> <observationRange> <text>NEGATIVE</text > </observationRange> </referenceRange> </observation > </component> <component> <observation moodCode="EVN" classCode="OBS"> <templateId root="16.840.1.198614.10..4.2" /> <id nullFlavor="NA" /> <code codeSystem="local" code="PROTEIU " displayName="UA PROTEIN DIPSTICK" /> <statusCode code="completed" /> <effectiveTime value="072040279558" /> <value unit="" xsi: type="PQ" value="1+" /> <interpretationCode codeSystem="local" code="* " /> <referenceRange> <observationRange> <text> NEGATIVE</text> </observationRange> </referenceRange> </observation> </component> <component> <observation moodCode ="EVN" classCode="OBS"> <templateId root= "05.07.840.1.393811.10..22.4.2" /> <id nullFlavor="NA" /> < code codeSystem="local" code="DGLUU" displayName="UA GLUCOSE DIPSTICK" /> <statusCode code="completed" /> <effectiveTime value="126102162297 " /> <value unit="" xsi:type="PQ" value="NEGATIVE" /> < referenceRange> <observationRange> <text>NEGATIVE</text > </observationRange> </referenceRange> </observation > </component> <component> <observation moodCode="EVN" classCode="OBS"> <templateId root="216.840.1.728140.10.4.2" /> <id nullFlavor="NA" /> <code codeSystem="local" code="KETONU" displayName="UA KETONE DIPSTICK" /> <statusCode code="completed" /> <effectiveTime value="414409294960" /> <value unit="" xsi:type= "PQ" value="TRACE" /> <interpretationCode codeSystem="local" code="*" / > <referenceRange> <observationRange> <text> NEGATIVE</text> </observationRange> </referenceRange> </observation> </component> <component> <observation moodCode ="EVN" classCode="OBS"> <templateId root= "16.840.1.986443.10..4.2" /> <id nullFlavor="NA" /> < code codeSystem="local" code="UROBILU" displayName="UA UROBILINOGEN DIPSTICK" / > <statusCode code="completed" /> <effectiveTime value= "626260767842" /> <value unit="" xsi:type="PQ" value="NORMAL" /> <referenceRange> <observationRange> <text>NORMAL</ text> </observationRange> </referenceRange> </ observation> </component> <component> <observation moodCode= "EVN" classCode="OBS"> <templateId root="16.840.1.539880...4.2 " /> <id nullFlavor="NA" /> <code codeSystem="local" code= "BILU" displayName="UA BILIRUBIN DIPSTICK" /> <statusCode code= "completed" /> <effectiveTime value="325326260164" /> <value unit="" xsi:type="PQ" value="1+" /> <interpretationCode codeSystem= "local" code="*" /> <referenceRange> <observationRange> <text>NEGATIVE</text> </observationRange> </ referenceRange> </observation> </component> <component> <observation moodCode="EVN" classCode="OBS"> <templateId root= "216.840.1.047173.01.08.22.4.2" /> <id nullFlavor="NA" /> < code codeSystem="local" code="BREANNA" displayName="UA BLOOD DIPSTICK" /> < statusCode code="completed" /> <effectiveTime value="161324818608" /> <value unit="" xsi:type="PQ" value="NEGATIVE" /> < referenceRange> <observationRange> <text>NEGATIVE</text > </observationRange> </referenceRange> </observation > </component> <component> <observation moodCode="EVN" classCode="OBS"> <templateId root="216.840.1.881312.01.08.22.4.2" /> <id nullFlavor="NA" /> <code codeSystem="local" code="SPGRU" displayName="UA SPECIFIC GRAVITY" /> <statusCode code="completed" /> <effectiveTime value="770642663670" /> <value unit="" xsi:type= "PQ" value=">=1.030" /> <interpretationCode codeSystem="local" code= "*" /> <referenceRange> <observationRange> < text>1.015-1.025</text> </observationRange> </referenceRange > </observation> </component> <component> <observation moodCode="EVN" classCode="OBS"> <templateId root= "05.07.840.1.421494.01.08.22.4.2" /> <id nullFlavor="NA" /> < code codeSystem="local" code="CLOVER" displayName="UR PH" /> <statusCode code="completed" /> <effectiveTime value="511563952896" /> < value unit="" xsi:type="PQ" value="5.5" /> <referenceRange> <observationRange> <text>5.0-7.0</text> </ observationRange> </referenceRange> </observation> </ component> </organizer> </entry> <entry> <organizer moodCode="EVN" classCode="BATTERY"> <templateId root="05.07.840.1.819742.01.08.22.4.1" /> <id nullFlavor="NA" /> <code codeSystem="local" code="UAMICRO" displayName="UA MICROSCOPIC" /> <statusCode code="completed" /> < component> <observation moodCode="EVN" classCode="OBS"> < templateId root="05.07.840.1.937568.01.08.22.4.2" /> <id nullFlavor="NA " /> <code codeSystem="local" code="BACU" displayName="UA BACTERIA" /> <statusCode code="completed" /> <effectiveTime value= "347363832690" /> <value unit="" xsi:type="PQ" value="2+" /> < interpretationCode codeSystem="local" code="*" /> <referenceRange> <observationRange> <text>NEGATIVE</text> </ observationRange> </referenceRange> </observation> </ component> <component> <observation moodCode="EVN" classCode="OBS"> <templateId root="05.07.840.1.551851.01.08.22.4.2" /> <id nullFlavor="NA" /> <code codeSystem="local" code="EPIU" displayName=" UA EPITHELIAL CELLS" /> <statusCode code="completed" /> < effectiveTime value="888076935732" /> <value unit="epi/hpf" xsi:type= "PQ" value="2+" /> <interpretationCode codeSystem="local" code="*" /> <referenceRange> <observationRange> <text>0 - 1 +</text> </observationRange> </referenceRange> </ observation> </component> <component> <observation moodCode= "EVN" classCode="OBS"> <templateId root="2.16.840.1.080322.10..4.2 " /> <id nullFlavor="NA" /> <code codeSystem="local" code= "MUCUSU" displayName="UA MUCUS" /> <statusCode code="completed" /> <effectiveTime value="525314166432" /> <value unit="" xsi:type= "PQ" value="3+" /> <interpretationCode codeSystem="local" code="*" /> <referenceRange> <observationRange> <text>NEG TO 1+</text> </observationRange> </referenceRange> </ observation> </component> <component> <observation moodCode= "EVN" classCode="OBS"> <templateId root="216.840.1.816924.10.4.2 " /> <id nullFlavor="NA" /> <code codeSystem="local" code= "RBCU" displayName="UA RBC" /> <statusCode code="completed" /> <effectiveTime value="963321442930" /> <value unit="rbc/hpf" xsi:type ="PQ" value="0" /> <referenceRange> <observationRange> <text>0 - 3</text> </observationRange> </ referenceRange> </observation> </component> <component> <observation moodCode="EVN" classCode="OBS"> <templateId root= "216.840.1.352627.10..22.4.2" /> <id nullFlavor="NA" /> < code codeSystem="local" code="UAVOL" displayName="UA VOLUME FOR EXAM" /> <statusCode code="completed" /> <effectiveTime value="181919952609" /> <value unit="mL" xsi:type="PQ" value="12.0" /> < referenceRange> <observationRange> <text>(12mL STD)</ text> </observationRange> </referenceRange> </ observation> </component> <component> <observation moodCode= "EVN" classCode="OBS"> <templateId root="216.840.1.779994.01.08.22.4.2 " /> <id nullFlavor="NA" /> <code codeSystem="local" code= "WBCU" displayName="UA WBC" /> <statusCode code="completed" /> <effectiveTime value="242504922428" /> <value unit="wbc/hpf" xsi:type ="PQ" value="0-1" /> <referenceRange> <observationRange> <text>0 - 5</text> </observationRange> </ referenceRange> </observation> </component> </organizer> </entry > <entry> <organizer moodCode="EVN" classCode="BATTERY"> <templateId root="216.840.1.397997.10..22.4.1" /> <id nullFlavor="NA" /> <code codeSystem="local" code="PREGU" displayName="UR TEST" /> < statusCode code="completed" /> <component> <observation moodCode= "EVN" classCode="OBS"> <templateId root="216.840.1.300235.10.22.4.2 " /> <id nullFlavor="NA" /> <code codeSystem="local" code= "PREGU" displayName="UR TEST" /> <statusCode code="completed " /> <effectiveTime value="779985558994" /> <value unit="" xsi :type="PQ" value="NEGATIVE" /> <referenceRange> < observationRange> <text>NEGATIVE</text> </ observationRange> </referenceRange> </observation> </ component> </organizer> </entry> <entry> <organizer moodCode="EVN" classCode="BATTERY"> <templateId root="216.840.1.617839.10..4.1" /> <id nullFlavor="NA" /> <code codeSystem="local" code="DRUGAB" displayName="UR DRUGS OF ABUSE SCREEN" /> <statusCode code="completed" /> <component> <observation moodCode="EVN" classCode="OBS"> < templateId root="216.840.1.314565.10..22.4.2" /> <id nullFlavor="NA " /> <code codeSystem="local" code="AMPHU" displayName="UR AMPHETAMINES SCREEN" /> <statusCode code="completed" /> < effectiveTime value="384532258796" /> <value unit="" xsi:type="PQ" value="NEG (<1000 ng/mL)" /> <referenceRange> < observationRange> <text>NEGATIVE</text> </ observationRange> </referenceRange> </observation> </ component> <component> <observation moodCode="EVN" classCode="OBS"> <templateId root="216.840.1.943488.10.22.4.2" /> <id nullFlavor="NA" /> <code codeSystem="local" code="BARBU" displayName= "UR BARBITURATE SCREEN" /> <statusCode code="completed" /> < effectiveTime value="" /> <value unit="" xsi:type="PQ" value="NEG (< 200 ng/mL)" /> <referenceRange> < observationRange> <text>NEGATIVE</text> </ observationRange> </referenceRange> </observation> </ component> <component> <observation moodCode="EVN" classCode="OBS"> <templateId root="2.16.840.1.622494.10..22.4.2" /> <id nullFlavor="NA" /> <code codeSystem="local" code="DAUCOMMENT" displayName="DRUGS OF ABUSE SCREEN COMMENT" /> <statusCode code= "completed" /> <effectiveTime value="" /> <value unit="" xsi:type="PQ" value="" /> <referenceRange> < observationRange> <text /> </observationRange> </referenceRange> </observation> </component> <component> <observation moodCode="EVN" classCode="OBS"> <templateId root= "2.16.840.1.279432.10..22.4.2" /> <id nullFlavor="NA" /> < code codeSystem="local" code="OPIU" displayName="UR OPIATES SCREEN" /> <statusCode code="completed" /> <effectiveTime value="" /> <value unit="" xsi:type="PQ" value="NEG (< 300 ng/mL)" /> <referenceRange> <observationRange> <text>NEGATIVE</ text> </observationRange> </referenceRange> </ observation> </component> <component> <observation moodCode= "EVN" classCode="OBS"> <templateId root="16.840.1.339936.10.20.22.4.2 " /> <id nullFlavor="NA" /> <code codeSystem="local" code= "PCPU" displayName="UR PHENCYCLIDINE (PCP) SCREEN" /> <statusCode code= "completed" /> <effectiveTime value="418119523313" /> <value unit="" xsi:type="PQ" value="NEG (< 25 ng/mL)" /> <referenceRange > <observationRange> <text>NEGATIVE</text> </ observationRange> </referenceRange> </observation> </ component> <component> <observation moodCode="EVN" classCode="OBS"> <templateId root="16.840.1.563060.10...4.2" /> <id nullFlavor="NA" /> <code codeSystem="local" code="THCU" displayName=" UR CANNABINOIDS (THC) SCREEN" /> <statusCode code="completed" /> <effectiveTime value="" /> <value unit="" xsi:type="PQ " value="POS (> 50 ng/mL)" /> <interpretationCode codeSystem= "local" code="*" /> <referenceRange> <observationRange> <text>NEGATIVE</text> </observationRange> </ referenceRange> </observation> </component> <component> <observation moodCode="EVN" classCode="OBS"> <templateId root= "16.840.1.252191.10..22.4.2" /> <id nullFlavor="NA" /> < code codeSystem="local" code="COCAU" displayName="UR COCAINE METABOLITE SCREEN" /> <statusCode code="completed" /> <effectiveTime value= "" /> <value unit="" xsi:type="PQ" value="NEG (< 300 ng /mL)" /> <referenceRange> <observationRange> < text>NEGATIVE</text> </observationRange> </referenceRange> </observation> </component> <component> <observation moodCode="EVN" classCode="OBS"> <templateId root= "2.16.840.1.037368.10.20.22.4.2" /> <id nullFlavor="NA" /> < code codeSystem="local" code="METHU" displayName="UR METHADONE SCREEN" /> <statusCode code="completed" /> <effectiveTime value="122872939178 " /> <value unit="" xsi:type="PQ" value="NEG (< 300 ng/mL)" /> <referenceRange> <observationRange> <text>NEGATIVE </text> </observationRange> </referenceRange> </ observation> </component> <component> <observation moodCode= "EVN" classCode="OBS"> <templateId root="216.840.1.381629.10..22.4.2 " /> <id nullFlavor="NA" /> <code codeSystem="local" code= "BENZU" displayName="UR BENZODIAZEPINE SCREEN" /> <statusCode code= "completed" /> <effectiveTime value="952346625208" /> <value unit="" xsi:type="PQ" value="NEG (< 200 ng/mL)" /> <referenceRange > <observationRange> <text>NEGATIVE</text> </ observationRange> </referenceRange> </observation> </ component> </organizer> </entry> <entry> <organizer moodCode="EVN" classCode="BATTERY"> <templateId root="2.16.840.1.757713.10.20.22.4.1" /> <id nullFlavor="NA" /> <code codeSystem="local" code="CBCD" displayName="CBC W/DIFF" /> <statusCode code="completed" /> <component > <observation moodCode="EVN" classCode="OBS"> <templateId root= "05.07.840.1.434176.01.08.22.4.2" /> <id nullFlavor="NA" /> < code codeSystem="local" code="EO#" displayName="EOSINOPHIL #" /> < statusCode code="completed" /> <effectiveTime value="153129987212" /> <value unit="k/cumm" xsi:type="PQ" value="0.1" /> < referenceRange> <observationRange> <text>0.1-0.5</text> </observationRange> </referenceRange> </observation > </component> <component> <observation moodCode="EVN" classCode="OBS"> <templateId root="840.1.726722.01.08.22.4.2" /> <id nullFlavor="NA" /> <code codeSystem="local" code="EO% " displayName="EOSINOPHIL %" /> <statusCode code="completed" /> <effectiveTime value="472675968457" /> <value unit="%" xsi: type="PQ" value="2" /> <referenceRange> <observationRange> <text>2-4</text> </observationRange> </ referenceRange> </observation> </component> <component> <observation moodCode="EVN" classCode="OBS"> <templateId root= "05.07.840.1.868376...4.2" /> <id nullFlavor="NA" /> < code codeSystem="local" code="GR#" displayName="GRANULOCYTE #" /> < statusCode code="completed" /> <effectiveTime value="666771029146" /> <value unit="k/cumm" xsi:type="PQ" value="3.6" /> < referenceRange> <observationRange> <text>2.0-9.0</text> </observationRange> </referenceRange> </observation > </component> <component> <observation moodCode="EVN" classCode="OBS"> <templateId root="16.840.1.918691.10..22.4.2" /> <id nullFlavor="NA" /> <code codeSystem="local" code="GR% " displayName="GRANULOCYTE %" /> <statusCode code="completed" /> <effectiveTime value="649648495095" /> <value unit="%" xsi: type="PQ" value="57" /> <referenceRange> <observationRange> <text>50-75</text> </observationRange> </ referenceRange> </observation> </component> <component> <observation moodCode="EVN" classCode="OBS"> <templateId root= "05.07.840.1.515691.10..4.2" /> <id nullFlavor="NA" /> < code codeSystem="local" code="LY#" displayName="LYMPHOCYTE #" /> < statusCode code="completed" /> <effectiveTime value="967098069850" /> <value unit="k/cumm" xsi:type="PQ" value="2.2" /> < referenceRange> <observationRange> <text>1.0-4.0</text> </observationRange> </referenceRange> </observation > </component> <component> <observation moodCode="EVN" classCode="OBS"> <templateId root="16.840.1.348988.10.20.22.4.2" /> <id nullFlavor="NA" /> <code codeSystem="local" code="LY% " displayName="LYMPHOCYTE %" /> <statusCode code="completed" /> <effectiveTime value="871082102520" /> <value unit="%" xsi: type="PQ" value="34" /> <interpretationCode codeSystem="local" code="* " /> <referenceRange> <observationRange> <text> 20-30</text> </observationRange> </referenceRange> </ observation> </component> <component> <observation moodCode= "EVN" classCode="OBS"> <templateId root="2.16.840.1.214016.10..22.4.2 " /> <id nullFlavor="NA" /> <code codeSystem="local" code="MCH " displayName="MEAN CELL HGB" /> <statusCode code="completed" /> <effectiveTime value="127994435977" /> <value unit="pg" xsi:type= "PQ" value="27.8" /> <referenceRange> <observationRange> <text>27.0-33.0</text> </observationRange> </ referenceRange> </observation> </component> <component> <observation moodCode="EVN" classCode="OBS"> <templateId root= "2.16.840.1.484764.10.2022.4.2" /> <id nullFlavor="NA" /> < code codeSystem="local" code="[facility]" displayName="MEAN CELL HGB CONCENTRATION" / > <statusCode code="completed" /> <effectiveTime value= "569457909491" /> <value unit="g/dL" xsi:type="PQ" value="32.9" /> <referenceRange> <observationRange> <text>32.0- 37.0</text> </observationRange> </referenceRange> </ observation> </component> <component> <observation moodCode= "EVN" classCode="OBS"> <templateId root="05.07.840.1.604753.01.08.22.4.2 " /> <id nullFlavor="NA" /> <code codeSystem="local" code="MCV " displayName="MEAN CELL VOLUME" /> <statusCode code="completed" /> <effectiveTime value="993051332387" /> <value unit="fl" xsi:type ="PQ" value="84.4" /> <referenceRange> <observationRange> <text>80.0-100.0</text> </observationRange> </ referenceRange> </observation> </component> <component> <observation moodCode="EVN" classCode="OBS"> <templateId root= "840.1.574701.01.08.224.2" /> <id nullFlavor="NA" /> < code codeSystem="local" code="MO#" displayName="MONOCYTE #" /> < statusCode code="completed" /> <effectiveTime value="733525399388" /> <value unit="k/cumm" xsi:type="PQ" value="0.4" /> < referenceRange> <observationRange> <text>0.1-1.0</text> </observationRange> </referenceRange> </observation > </component> <component> <observation moodCode="EVN" classCode="OBS"> <templateId root="840.1.598863.10.22.4.2" /> <id nullFlavor="NA" /> <code codeSystem="local" code="MO% " displayName="MONOCYTE %" /> <statusCode code="completed" /> <effectiveTime value="809511250391" /> <value unit="%" xsi: type="PQ" value="7" /> <interpretationCode codeSystem="local" code="*" /> <referenceRange> <observationRange> <text>4- 6</text> </observationRange> </referenceRange> </ observation> </component> <component> <observation moodCode= "EVN" classCode="OBS"> <templateId root="216.840.1.522054.10..22.4.2 " /> <id nullFlavor="NA" /> <code codeSystem="local" code="RBC " displayName="RED BLOOD CELL" /> <statusCode code="completed" /> <effectiveTime value="515917509073" /> <value unit="m/cumm" xsi: type="PQ" value="4.68" /> <referenceRange> <observationRange > <text>4.00-6.00</text> </observationRange> </ referenceRange> </observation> </component> <component> <observation moodCode="EVN" classCode="OBS"> <templateId root= "16.840.1.440189.10...4.2" /> <id nullFlavor="NA" /> < code codeSystem="local" code="RDW" displayName="RED CELL DISTRIBUTION WIDTH" /> <statusCode code="completed" /> <effectiveTime value= "313371178062" /> <value unit="%" xsi:type="PQ" value="13.0" /> <referenceRange> <observationRange> <text>11.0- 15.6</text> </observationRange> </referenceRange> </ observation> </component> <component> <observation moodCode= "EVN" classCode="OBS"> <templateId root="216.840.1.386401.10..22.4.2 " /> <id nullFlavor="NA" /> <code codeSystem="local" code="WBC " displayName="WHITE BLOOD CELL" /> <statusCode code="completed" /> <effectiveTime value="908263476726" /> <value unit="k/cumm" xsi: type="PQ" value="6.4" /> <referenceRange> <observationRange > <text>5.0-10.0</text> </observationRange> </ referenceRange> </observation> </component> <component> <observation moodCode="EVN" classCode="OBS"> <templateId root= "2.16.840.1.327602.10.20.22.4.2" /> <id nullFlavor="NA" /> < code codeSystem="local" code="HGBT" displayName="HEMOGLOBIN" /> < statusCode code="completed" /> <effectiveTime value="596738479637" /> <value unit="gm/dL" xsi:type="PQ" value="13.0" /> < referenceRange> <observationRange> <text>12.0-16.0</text > </observationRange> </referenceRange> </observation > </component> <component> <observation moodCode="EVN" classCode="OBS"> <templateId root="2.16.840.1.715177.10.20.22.4.2" /> <id nullFlavor="NA" /> <code codeSystem="local" code="HCTT" displayName="HEMATOCRIT" /> <statusCode code="completed" /> < effectiveTime value="728361002566" /> <value unit="%" xsi:type="PQ " value="39.5" /> <referenceRange> <observationRange> <text>37.0-47.0</text> </observationRange> </ referenceRange> </observation> </component> <component> <observation moodCode="EVN" classCode="OBS"> <templateId root= "05.07.840.1.948469.10..22.4.2" /> <id nullFlavor="NA" /> < code codeSystem="local" code="PLT" displayName="PLATELET COUNT" /> < statusCode code="completed" /> <effectiveTime value="012969911079" /> <value unit="k/cumm" xsi:type="PQ" value="252" /> < referenceRange> <observationRange> <text>150-400</text> </observationRange> </referenceRange> </observation > </component> </organizer> </entry> <entry> <organizer moodCode= "EVN" classCode="BATTERY"> <templateId root="16.840.1.395428.10..22.4.1 " /> <id nullFlavor="NA" /> <code codeSystem="local" code="LIVER" displayName="HEPATIC FUNCTION PANEL" /> <statusCode code="completed" /> <component> <observation moodCode="EVN" classCode="OBS"> < templateId root="16.840.1.855176.10..22.4.2" /> <id nullFlavor="NA " /> <code codeSystem="local" code="BILUC" displayName="BILI UNCONJUGATED" /> <statusCode code="completed" /> < effectiveTime value="713322947267" /> <value unit="mg/dL" xsi:type="PQ " value="1.0" /> <interpretationCode codeSystem="local" code="*" /> <referenceRange> <observationRange> <text>0.0-0.7 </text> </observationRange> </referenceRange> </ observation> </component> <component> <observation moodCode= "EVN" classCode="OBS"> <templateId root="05.07.840.1.429581.10.22.4.2 " /> <id nullFlavor="NA" /> <code codeSystem="local" code="AST " displayName="AST/SGOT" /> <statusCode code="completed" /> < effectiveTime value="453714726009" /> <value unit="Units/L" xsi:type= "PQ" value="9" /> <interpretationCode codeSystem="local" code="*" /> <referenceRange> <observationRange> <text>10-37< /text> </observationRange> </referenceRange> </ observation> </component> <component> <observation moodCode= "EVN" classCode="OBS"> <templateId root="05.07.840.1.981617.01.08.22.4.2 " /> <id nullFlavor="NA" /> <code codeSystem="local" code="ALT " displayName="ALT/SGPT" /> <statusCode code="completed" /> < effectiveTime value="214590875252" /> <value unit="Units/L" xsi:type= "PQ" value="19" /> <referenceRange> <observationRange> <text>< 66</text> </observationRange> </ referenceRange> </observation> </component> <component> <observation moodCode="EVN" classCode="OBS"> <templateId root= "05.07.840.1.936866.10.22.4.2" /> <id nullFlavor="NA" /> < code codeSystem="local" code="TP" displayName="TOTAL PROTEIN" /> < statusCode code="completed" /> <effectiveTime value="351175778599" /> <value unit="gm/dL" xsi:type="PQ" value="7.1" /> < referenceRange> <observationRange> <text>6.4-8.2</text> </observationRange> </referenceRange> </observation > </component> <component> <observation moodCode="EVN" classCode="OBS"> <templateId root="2.16.840.1.218231.10.4.2" /> <id nullFlavor="NA" /> <code codeSystem="local" code="ALB" displayName="ALBUMIN" /> <statusCode code="completed" /> < effectiveTime value="122400380740" /> <value unit="gm/dL" xsi:type="PQ " value="3.8" /> <referenceRange> <observationRange> <text>3.4-5.0</text> </observationRange> </ referenceRange> </observation> </component> <component> <observation moodCode="EVN" classCode="OBS"> <templateId root= "16.840.1.025884.01.08.22.4.2" /> <id nullFlavor="NA" /> < code codeSystem="local" code="BILTOT" displayName="BILI TOTAL" /> < statusCode code="completed" /> <effectiveTime value="610791918169" /> <value unit="mg/dL" xsi:type="PQ" value="1.3" /> < interpretationCode codeSystem="local" code="*" /> <referenceRange> <observationRange> <text>0.0-1.0</text> </ observationRange> </referenceRange> </observation> </ component> <component> <observation moodCode="EVN" classCode="OBS"> <templateId root="216.840.1.491171.01.08.22.4.2" /> <id nullFlavor="NA" /> <code codeSystem="local" code="ALKP" displayName= "ALKALINE PHOSPHATASE TOTAL" /> <statusCode code="completed" /> <effectiveTime value="983167744798" /> <value unit="IU/L" xsi:type= "PQ" value="60" /> <referenceRange> <observationRange> <text>45-117</text> </observationRange> </ referenceRange> </observation> </component> <component> <observation moodCode="EVN" classCode="OBS"> <templateId root= "840.1.442694.01.08.22.4.2" /> <id nullFlavor="NA" /> < code codeSystem="local" code="BILC" displayName="BILI CONJUGATED" /> < statusCode code="completed" /> <effectiveTime value="" /> <value unit="mg/dL" xsi:type="PQ" value="0.3" /> < referenceRange> <observationRange> <text>0.0-0.3</text> </observationRange> </referenceRange> </observation > </component> </organizer> </entry> <entry> <organizer moodCode= "EVN" classCode="BATTERY"> <templateId root="05.07.840.1.957105.01.08.22.4.1 " /> <id nullFlavor="NA" /> <code codeSystem="local" code="MAG" displayName="MAGNESIUM" /> <statusCode code="completed" /> <component > <observation moodCode="EVN" classCode="OBS"> <templateId root= "05.07.840.1.776942.22.4.2" /> <id nullFlavor="NA" /> < code codeSystem="local" code="MAG" displayName="MAGNESIUM" /> < statusCode code="completed" /> <effectiveTime value="" /> <value unit="mg/dL" xsi:type="PQ" value="2.2" /> < referenceRange> <observationRange> <text>1.8-2.4</text> </observationRange> </referenceRange> </observation > </component> </organizer> </entry> <entry> <organizer moodCode= "EVN" classCode="BATTERY"> <templateId root="840.1.754088.10..22.4.1 " /> <id nullFlavor="NA" /> <code codeSystem="local" code="TSH" displayName="THYROID STIM HORMONE (TSH)" /> <statusCode code="completed" / > <component> <observation moodCode="EVN" classCode="OBS"> <templateId root="840.1.826400.10..22.4.2" /> <id nullFlavor="NA " /> <code codeSystem="local" code="TSH" displayName="THYROID STIM HORMONE (TSH)" /> <statusCode code="completed" /> < effectiveTime value="250964632135" /> <value unit="uIU/mL" xsi:type="PQ " value="0.82" /> <referenceRange> <observationRange> <text>0.46-4.13</text> </observationRange> </ referenceRange> </observation> </component> </organizer> </entry > <entry> <organizer moodCode="EVN" classCode="BATTERY"> <templateId root="05.07.840.1.341208.10.20.22.4.1" /> <id nullFlavor="NA" /> <code codeSystem="local" code="LIP" displayName="LIPASE" /> <statusCode code= "completed" /> <component> <observation moodCode="EVN" classCode= "OBS"> <templateId root="05.07.840.1.540348.10..4.2" /> < id nullFlavor="NA" /> <code codeSystem="local" code="LIP" displayName= "LIPASE" /> <statusCode code="completed" /> <effectiveTime value="263409846384" /> <value unit="Units/L" xsi:type="PQ" value="180 " /> <referenceRange> <observationRange> <text> 73-393</text> </observationRange> </referenceRange> < /observation> </component> </organizer> </entry> <entry> < organizer moodCode="EVN" classCode="BATTERY"> <templateId root= "216.840.1.395979.104.1" /> <id nullFlavor="NA" /> <code codeSystem="local" code="PREALB" displayName="PREALBUMIN" /> <statusCode code="completed" /> <component> <observation moodCode="EVN" classCode="OBS"> <templateId root="216.840.1.523217.10..4.2" /> <id nullFlavor="NA" /> <code codeSystem="local" code="PREALB" displayName="PREALBUMIN" /> <statusCode code="completed" /> < effectiveTime value="388406500303" /> <value unit="mg/dL" xsi:type="PQ " value="24" /> <referenceRange> <observationRange> <text>20-40</text> </observationRange> </ referenceRange> </observation> </component> </organizer> </entry > <entry> <organizer moodCode="EVN" classCode="BATTERY"> <templateId root="216.840.1.675920.10..4.1" /> <id nullFlavor="NA" /> <code codeSystem="local" code="iCHEM8" displayName="CHEM/HEM PROFILE-BEDSIDE" /> <statusCode code="completed" /> <component> <observation moodCode= "EVN" classCode="OBS"> <templateId root="16.840.1.428208.01.08.22.4.2 " /> <id nullFlavor="NA" /> <code codeSystem="local" code="K" displayName="POTASSIUM" /> <statusCode code="completed" /> < effectiveTime value="574351298755" /> <value unit="mmol/L" xsi:type="PQ " value="3.6" /> <referenceRange> <observationRange> <text>3.5-5.3</text> </observationRange> </ referenceRange> </observation> </component> <component> <observation moodCode="EVN" classCode="OBS"> <templateId root= "05.07.840.1.854025.01.08.22.4.2" /> <id nullFlavor="NA" /> < code codeSystem="local" code="CMETHOD" displayName="METHOD" /> < statusCode code="completed" /> <effectiveTime value="759359926153" /> <value unit="" xsi:type="PQ" value="Bedside" /> < referenceRange> <observationRange> <text /> < /observationRange> </referenceRange> </observation> </ component> <component> <observation moodCode="EVN" classCode="OBS"> <templateId root="05.07.840.1.340170.01.08.22.4.2" /> <id nullFlavor="NA" /> <code codeSystem="local" code="GAP" displayName= "ANION GAP" /> <statusCode code="completed" /> <effectiveTime value="886297908561" /> <value unit="mmol/L" xsi:type="PQ" value="19" / > <referenceRange> <observationRange> <text>10- 20</text> </observationRange> </referenceRange> </ observation> </component> <component> <observation moodCode= "EVN" classCode="OBS"> <templateId root="16.840.1.150314.10.22.4.2 " /> <id nullFlavor="NA" /> <code codeSystem="local" code= "HMETHOD" displayName="METHOD" /> <statusCode code="completed" /> <effectiveTime value="505479463913" /> <value unit="" xsi:type="PQ " value="Bedside" /> <referenceRange> <observationRange> <text /> </observationRange> </referenceRange> </observation> </component> <component> <observation moodCode="EVN" classCode="OBS"> <templateId root= "05.07.840.1.168525.01.08.22.4.2" /> <id nullFlavor="NA" /> < code codeSystem="local" code="GLU" displayName="GLUCOSE" /> < statusCode code="completed" /> <effectiveTime value="426826622909" /> <value unit="mg/dL" xsi:type="PQ" value="75" /> < referenceRange> <observationRange> <text>70-99</text> </observationRange> </referenceRange> </observation> </component> <component> <observation moodCode="EVN" classCode= "OBS"> <templateId root="05.07.840.1.441639.1022.4.2" /> < id nullFlavor="NA" /> <code codeSystem="local" code="BUN" displayName= "BLOOD UREA NITROGEN" /> <statusCode code="completed" /> < effectiveTime value="517806555421" /> <value unit="mg/dL" xsi:type="PQ " value="17" /> <referenceRange> <observationRange> <text>7-20</text> </observationRange> </referenceRange > </observation> </component> <component> <observation moodCode="EVN" classCode="OBS"> <templateId root= "216.840.1.005420.10..22.4.2" /> <id nullFlavor="NA" /> < code codeSystem="local" code="CREAT" displayName="CREATININE" /> < statusCode code="completed" /> <effectiveTime value="766006108728" /> <value unit="mg/dL" xsi:type="PQ" value="0.9" /> < referenceRange> <observationRange> <text>0.6-1.0</text> </observationRange> </referenceRange> </observation > </component> <component> <observation moodCode="EVN" classCode="OBS"> <templateId root="05.07.840.1.204756.10..4.2" /> <id nullFlavor="NA" /> <code codeSystem="local" code="HGBT" displayName="HEMOGLOBIN" /> <statusCode code="completed" /> < effectiveTime value="075048816699" /> <value unit="gm/dL" xsi:type="PQ " value="12.2" /> <referenceRange> <observationRange> <text>12.0-16.0</text> </observationRange> </ referenceRange> </observation> </component> <component> <observation moodCode="EVN" classCode="OBS"> <templateId root= "05.07.840.1.403423.10.20.22.4.2" /> <id nullFlavor="NA" /> < code codeSystem="local" code="HCTT" displayName="HEMATOCRIT" /> < statusCode code="completed" /> <effectiveTime value="208874295538" /> <value unit="%" xsi:type="PQ" value="36.0" /> < interpretationCode codeSystem="local" code="*" /> <referenceRange> <observationRange> <text>37.0-47.0</text> </ observationRange> </referenceRange> </observation> </ component> <component> <observation moodCode="EVN" classCode="OBS"> <templateId root="216.840.1.105186.10.20.22.4.2" /> <id nullFlavor="NA" /> <code codeSystem="local" code="NA" displayName= "SODIUM" /> <statusCode code="completed" /> <effectiveTime value="949061347639" /> <value unit="mmol/L" xsi:type="PQ" value="142" /> <referenceRange> <observationRange> <text> 135-148</text> </observationRange> </referenceRange> </observation> </component> <component> <observation moodCode= "EVN" classCode="OBS"> <templateId root="16.840.1.368225.10.20.22.4.2 " /> <id nullFlavor="NA" /> <code codeSystem="local" code="CL " displayName="CHLORIDE" /> <statusCode code="completed" /> < effectiveTime value="811859879605" /> <value unit="mmol/L" xsi:type="PQ " value="104" /> <referenceRange> <observationRange> <text>98-110</text> </observationRange> </ referenceRange> </observation> </component> <component> <observation moodCode="EVN" classCode="OBS"> <templateId root= "840.1.784221.22.4.2" /> <id nullFlavor="NA" /> < code codeSystem="local" code="CO2" displayName="CARBON DIOXIDE" /> < statusCode code="completed" /> <effectiveTime value="425621894259" /> <value unit="mmol/L" xsi:type="PQ" value="23" /> < referenceRange> <observationRange> <text>21-32</text> </observationRange> </referenceRange> </observation> </component> <component> <observation moodCode="EVN" classCode= "OBS"> <templateId root="840.1.075685.01.08.22.4.2" /> < id nullFlavor="NA" /> <code codeSystem="local" code="CAION" displayName ="CALCIUM IONIZED" /> <statusCode code="completed" /> < effectiveTime value="168332308033" /> <value unit="mg/dL" xsi:type="PQ " value="4.5" /> <referenceRange> <observationRange> <text>4.5-5.3</text> </observationRange> </ referenceRange> </observation> </component> </organizer> </entry > <entry> <organizer moodCode="EVN" classCode="BATTERY"> <templateId root="840.1.235585.22.4.1" /> <id nullFlavor="NA" /> <code codeSystem="local" code="CAION" displayName="CALCIUM IONIZED" /> < statusCode code="completed" /> <component> <observation moodCode= "EVN" classCode="OBS"> <templateId root="840.1.568268.22.4.2 " /> <id nullFlavor="NA" /> <code codeSystem="local" code= "CAION" displayName="CALCIUM IONIZED" /> <statusCode code="completed" / > <effectiveTime value="" /> <value unit="mg/dL" xsi:type="PQ" value="4.8" /> <referenceRange> < observationRange> <text>4.5-5.3</text> </ observationRange> </referenceRange> </observation> </ component> </organizer> </entry> <entry> <organizer moodCode="EVN" classCode="BATTERY"> <templateId root="216.840.1.009933.10..22.4.1" /> <id nullFlavor="NA" /> <code codeSystem="local" code="METABC" displayName="METABOLIC PANEL, COMPREHN" /> <statusCode code="completed" /> <component> <observation moodCode="EVN" classCode="OBS"> < templateId root="16.840.1.850034.10..22.4.2" /> <id nullFlavor="NA " /> <code codeSystem="local" code="K" displayName="POTASSIUM" /> <statusCode code="completed" /> <effectiveTime value=" " /> <value unit="mmol/L" xsi:type="PQ" value="4.1" /> < referenceRange> <observationRange> <text>3.5-5.3</text> </observationRange> </referenceRange> </observation > </component> <component> <observation moodCode="EVN" classCode="OBS"> <templateId root="05.07.840.1.199305.10..22.4.2" /> <id nullFlavor="NA" /> <code codeSystem="local" code="eGFR" displayName="EST GFR (MDRD)" /> <statusCode code="completed" /> <effectiveTime value="" /> <value unit="mL/min" xsi:type ="PQ" value="> 60" /> <referenceRange> <observationRange > <text>> 59</text> </observationRange> </ referenceRange> </observation> </component> <component> <observation moodCode="EVN" classCode="OBS"> <templateId root= "216.840.1.128680.10...4.2" /> <id nullFlavor="NA" /> < code codeSystem="local" code="GAP" displayName="ANION GAP" /> < statusCode code="completed" /> <effectiveTime value="" /> <value unit="mmol/L" xsi:type="PQ" value="6" /> < referenceRange> <observationRange> <text>5-15</text> </observationRange> </referenceRange> </observation> </component> <component> <observation moodCode="EVN" classCode= "OBS"> <templateId root="216.840.1.987230.10..4.2" /> < id nullFlavor="NA" /> <code codeSystem="local" code="eCrCl" displayName ="EST CrCl (CG)" /> <statusCode code="completed" /> < effectiveTime value="" /> <value unit="mL/min" xsi:type="PQ " value="> 60" /> <referenceRange> <observationRange> <text>> 59</text> </observationRange> </ referenceRange> </observation> </component> <component> <observation moodCode="EVN" classCode="OBS"> <templateId root= "216.840.1.040385.10..4.2" /> <id nullFlavor="NA" /> < code codeSystem="local" code="GLU" displayName="GLUCOSE" /> < statusCode code="completed" /> <effectiveTime value="" /> <value unit="mg/dL" xsi:type="PQ" value="73" /> < referenceRange> <observationRange> <text>70-99</text> </observationRange> </referenceRange> </observation> </component> <component> <observation moodCode="EVN" classCode= "OBS"> <templateId root="2.16.840.1.352275.10..4.2" /> < id nullFlavor="NA" /> <code codeSystem="local" code="CA" displayName= "CALCIUM" /> <statusCode code="completed" /> <effectiveTime value="" /> <value unit="mg/dL" xsi:type="PQ" value="8.6" / > <referenceRange> <observationRange> <text>8.5 -10.1</text> </observationRange> </referenceRange> </ observation> </component> <component> <observation moodCode= "EVN" classCode="OBS"> <templateId root="2.16.840.1.507699.10..4.2 " /> <id nullFlavor="NA" /> <code codeSystem="local" code="BUN " displayName="BLOOD UREA NITROGEN" /> <statusCode code="completed" /> <effectiveTime value="" /> <value unit="mg/dL" xsi:type="PQ" value="9" /> <referenceRange> < observationRange> <text>7-20</text> </observationRange> </referenceRange> </observation> </component> < component> <observation moodCode="EVN" classCode="OBS"> < templateId root="216.840.1.953230.10..22.4.2" /> <id nullFlavor="NA " /> <code codeSystem="local" code="CREAT" displayName="CREATININE" /> <statusCode code="completed" /> <effectiveTime value= "" /> <value unit="mg/dL" xsi:type="PQ" value="0.9" /> <referenceRange> <observationRange> <text>0.6-1.0< /text> </observationRange> </referenceRange> </ observation> </component> <component> <observation moodCode= "EVN" classCode="OBS"> <templateId root="216.840.1.575736.10...4.2 " /> <id nullFlavor="NA" /> <code codeSystem="local" code="NA " displayName="SODIUM" /> <statusCode code="completed" /> < effectiveTime value="" /> <value unit="mmol/L" xsi:type="PQ " value="141" /> <referenceRange> <observationRange> <text>135-148</text> </observationRange> </ referenceRange> </observation> </component> <component> <observation moodCode="EVN" classCode="OBS"> <templateId root= "16.840.1.456709.10..22.4.2" /> <id nullFlavor="NA" /> < code codeSystem="local" code="CL" displayName="CHLORIDE" /> < statusCode code="completed" /> <effectiveTime value="" /> <value unit="mmol/L" xsi:type="PQ" value="107" /> < referenceRange> <observationRange> <text>98-110</text> </observationRange> </referenceRange> </observation> </component> <component> <observation moodCode="EVN" classCode ="OBS"> <templateId root="216.840.1.650037.10...4.2" /> < id nullFlavor="NA" /> <code codeSystem="local" code="AST" displayName= "AST/SGOT" /> <statusCode code="completed" /> <effectiveTime value="" /> <value unit="Units/L" xsi:type="PQ" value="10" /> <referenceRange> <observationRange> <text>10 -37</text> </observationRange> </referenceRange> </ observation> </component> <component> <observation moodCode= "EVN" classCode="OBS"> <templateId root="216.840.1.657101...4.2 " /> <id nullFlavor="NA" /> <code codeSystem="local" code="ALT " displayName="ALT/SGPT" /> <statusCode code="completed" /> < effectiveTime value="" /> <value unit="Units/L" xsi:type= "PQ" value="16" /> <referenceRange> <observationRange> <text>< 66</text> </observationRange> </ referenceRange> </observation> </component> <component> <observation moodCode="EVN" classCode="OBS"> <templateId root= "216.840.1.734655.10...4.2" /> <id nullFlavor="NA" /> < code codeSystem="local" code="CO2" displayName="CARBON DIOXIDE" /> < statusCode code="completed" /> <effectiveTime value="" /> <value unit="mmol/L" xsi:type="PQ" value="28" /> < referenceRange> <observationRange> <text>21-32</text> </observationRange> </referenceRange> </observation> </component> <component> <observation moodCode="EVN" classCode= "OBS"> <templateId root="16.840.1.429813.10.20.22.4.2" /> < id nullFlavor="NA" /> <code codeSystem="local" code="TP" displayName= "TOTAL PROTEIN" /> <statusCode code="completed" /> < effectiveTime value="" /> <value unit="gm/dL" xsi:type="PQ " value="6.4" /> <referenceRange> <observationRange> <text>6.4-8.2</text> </observationRange> </ referenceRange> </observation> </component> <component> <observation moodCode="EVN" classCode="OBS"> <templateId root= "05.07.840.1.555357.10..4.2" /> <id nullFlavor="NA" /> < code codeSystem="local" code="ALB" displayName="ALBUMIN" /> < statusCode code="completed" /> <effectiveTime value="" /> <value unit="gm/dL" xsi:type="PQ" value="3.3" /> < interpretationCode codeSystem="local" code="*" /> <referenceRange> <observationRange> <text>3.4-5.0</text> </ observationRange> </referenceRange> </observation> </ component> <component> <observation moodCode="EVN" classCode="OBS"> <templateId root="16.840.1.425530.10..22.4.2" /> <id nullFlavor="NA" /> <code codeSystem="local" code="BILTOT" displayName= "BILI TOTAL" /> <statusCode code="completed" /> < effectiveTime value="" /> <value unit="mg/dL" xsi:type="PQ " value="1.6" /> <interpretationCode codeSystem="local" code="*" /> <referenceRange> <observationRange> <text>0.0-1.0 </text> </observationRange> </referenceRange> </ observation> </component> <component> <observation moodCode= "EVN" classCode="OBS"> <templateId root="16.840.1.977072.01.08.22.4.2 " /> <id nullFlavor="NA" /> <code codeSystem="local" code= "ALKP" displayName="ALKALINE PHOSPHATASE TOTAL" /> <statusCode code= "completed" /> <effectiveTime value="" /> <value unit="IU/L" xsi:type="PQ" value="56" /> <referenceRange> < observationRange> <text>45-117</text> </observationRange > </referenceRange> </observation> </component> </ organizer> </entry> <entry> <organizer moodCode="EVN" classCode="BATTERY"> <templateId root="05.07.840.1.411048.01.08.22.4.1" /> <id nullFlavor= "NA" /> <code codeSystem="local" code="PHOS" displayName="PHOSPHORUS" /> <statusCode code="completed" /> <component> <observation moodCode="EVN" classCode="OBS"> <templateId root= "05.07.840.1.605975.01.08.22.4.2" /> <id nullFlavor="NA" /> < code codeSystem="local" code="PHOS" displayName="PHOSPHORUS" /> < statusCode code="completed" /> <effectiveTime value="" /> <value unit="mg/dL" xsi:type="PQ" value="3.5" /> < referenceRange> <observationRange> <text>2.5-4.9</text> </observationRange> </referenceRange> </observation > </component> </organizer> </entry> <entry> <organizer moodCode= "EVN" classCode="BATTERY"> <templateId root="16.840.1.054826.10.20.22.4.1 " /> <id nullFlavor="NA" /> <code codeSystem="local" code="MAG" displayName="MAGNESIUM" /> <statusCode code="completed" /> <component > <observation moodCode="EVN" classCode="OBS"> <templateId root= "16.840.1.482119.10..22.4.2" /> <id nullFlavor="NA" /> < code codeSystem="local" code="MAG" displayName="MAGNESIUM" /> < statusCode code="completed" /> <effectiveTime value="" /> <value unit="mg/dL" xsi:type="PQ" value="2.1" /> < referenceRange> <observationRange> <text>1.8-2.4</text> </observationRange> </referenceRange> </observation > </component> </organizer> </entry> <entry> <organizer moodCode= "EVN" classCode="BATTERY"> <templateId root="16.840.1.680891.10..22.4.1 " /> <id nullFlavor="NA" /> <code codeSystem="local" code="49961-6" displayName="Complete urinalysis with reflex to culture" /> <statusCode code="completed" /> <component> <observation moodCode="EVN" classCode="OBS"> <templateId root="216.840.1.781422.10..22.4.2" /> <id nullFlavor="NA" /> <code codeSystem="local" code="5778-6" displayName="Urine color determination" /> <statusCode code="completed " /> <effectiveTime value="" /> <value unit="" xsi :type="PQ" value="YELLOW" /> <referenceRange> < observationRange> <text>NRG</text> </observationRange> </referenceRange> </observation> </component> < component> <observation moodCode="EVN" classCode="OBS"> < templateId root="16.840.1.085652.10..4.2" /> <id nullFlavor="NA " /> <code codeSystem="local" code="45802-8" displayName="Urine clarity determination" /> <statusCode code="completed" /> < effectiveTime value="" /> <value unit="" xsi:type="PQ" value="CLEAR" /> <referenceRange> <observationRange> <text>NRG</text> </observationRange> </referenceRange > </observation> </component> <component> <observation moodCode="EVN" classCode="OBS"> <templateId root= "16.840.1.401389.10..22.4.2" /> <id nullFlavor="NA" /> < code codeSystem="local" code="5803-2" displayName="Urine pH measurement by test strip" /> <statusCode code="completed" /> <effectiveTime value ="" /> <value unit="" xsi:type="PQ" value="6" /> < referenceRange> <observationRange> <text>5-9</text> </observationRange> </referenceRange> </observation> </component> <component> <observation moodCode="EVN" classCode= "OBS"> <templateId root="216.840.1.737655.10..4.2" /> < id nullFlavor="NA" /> <code codeSystem="local" code="5811-5" displayName="Specific gravity of urine by test strip" /> <statusCode code="completed" /> <effectiveTime value="" /> < value unit="" xsi:type="PQ" value="1.020" /> <referenceRange> <observationRange> <text>1.016-1.022</text> </ observationRange> </referenceRange> </observation> </ component> <component> <observation moodCode="EVN" classCode="OBS"> <templateId root="16.840.1.987858.10..4.2" /> <id nullFlavor="NA" /> <code codeSystem="local" code="91997-5" displayName= "Urine protein assay by test strip, semi-quantitative" /> <statusCode code="completed" /> <effectiveTime value="" /> < value unit="" xsi:type="PQ" value="1+" /> <interpretationCode codeSystem="local" code="*" /> <referenceRange> < observationRange> <text>NEGATIVE</text> </ observationRange> </referenceRange> </observation> </ component> <component> <observation moodCode="EVN" classCode="OBS"> <templateId root="216.840.1.527506.10..4.2" /> <id nullFlavor="NA" /> <code codeSystem="local" code="78053-9" displayName= "Urine glucose detection by automated test strip" /> <statusCode code= "completed" /> <effectiveTime value="753786701787" /> <value unit="" xsi:type="PQ" value="NEGATIVE" /> <referenceRange> < observationRange> <text>NEGATIVE</text> </ observationRange> </referenceRange> </observation> </ component> <component> <observation moodCode="EVN" classCode="OBS"> <templateId root="05.07.840.1.727967.10..4.2" /> <id nullFlavor="NA" /> <code codeSystem="local" code="41436-6" displayName= "Erythrocytes detection in urine sediment by light microscopy" /> < statusCode code="completed" /> <effectiveTime value="897532492832" /> <value unit="" xsi:type="PQ" value="3+" /> < interpretationCode codeSystem="local" code="*" /> <referenceRange> <observationRange> <text>NEGATIVE</text> </ observationRange> </referenceRange> </observation> </ component> <component> <observation moodCode="EVN" classCode="OBS"> <templateId root="05.07.840.1.528525.10..22.4.2" /> <id nullFlavor="NA" /> <code codeSystem="local" code="48117-9" displayName= "Urine ketones detection by automated test strip" /> <statusCode code= "completed" /> <effectiveTime value="412649764199" /> <value unit="" xsi:type="PQ" value="2+" /> <interpretationCode codeSystem= "local" code="*" /> <referenceRange> <observationRange> <text>NEGATIVE</text> </observationRange> </ referenceRange> </observation> </component> <component> <observation moodCode="EVN" classCode="OBS"> <templateId root= "05.07.840.1.193153.10..22.4.2" /> <id nullFlavor="NA" /> < code codeSystem="local" code="5802-4" displayName="Urine nitrite detection by test strip" /> <statusCode code="completed" /> <effectiveTime value="" /> <value unit="" xsi:type="PQ" value="NEGATIVE" / > <referenceRange> <observationRange> <text> NEGATIVE</text> </observationRange> </referenceRange> </observation> </component> <component> <observation moodCode ="EVN" classCode="OBS"> <templateId root= "216.840.1.098801.10..22.4.2" /> <id nullFlavor="NA" /> < code codeSystem="local" code="5770-3" displayName="Urine total bilirubin detection by test strip" /> <statusCode code="completed" /> < effectiveTime value="" /> <value unit="" xsi:type="PQ" value="NEGATIVE" /> <referenceRange> <observationRange> <text>NEGATIVE</text> </observationRange> </ referenceRange> </observation> </component> <component> <observation moodCode="EVN" classCode="OBS"> <templateId root= "216.840.1.456341.10..22.4.2" /> <id nullFlavor="NA" /> < code codeSystem="local" code="32500-6" displayName="Urine urobilinogen measurement by automated test strip (mass/volume)" /> <statusCode code= "completed" /> <effectiveTime value="" /> <value unit="" xsi:type="PQ" value="NORMAL" /> <referenceRange> < observationRange> <text>NORMAL</text> </observationRange > </referenceRange> </observation> </component> < component> <observation moodCode="EVN" classCode="OBS"> < templateId root="05.07.840.1.253546.10..4.2" /> <id nullFlavor="NA " /> <code codeSystem="local" code="5799-2" displayName="Urine leukocyte esterase detection by dipstick" /> <statusCode code= "completed" /> <effectiveTime value="509914145804" /> <value unit="" xsi:type="PQ" value="1+" /> <interpretationCode codeSystem= "local" code="*" /> <referenceRange> <observationRange> <text>NEGATIVE</text> </observationRange> </ referenceRange> </observation> </component> <component> <observation moodCode="EVN" classCode="OBS"> <templateId root= "05.07.840.1.591284.01.08.22.4.2" /> <id nullFlavor="NA" /> < code codeSystem="local" code="96111-3" displayName="Automated urine sediment erythrocyte count by microscopy (number/high power field)" /> < statusCode code="completed" /> <effectiveTime value="200058426678" /> <value unit="[HPF]" xsi:type="PQ" value="" /> < interpretationCode codeSystem="local" code="*" /> <referenceRange> <observationRange> <text>NRG</text> </ observationRange> </referenceRange> </observation> </ component> <component> <observation moodCode="EVN" classCode="OBS"> <templateId root="05.07.840.1.452073.10..4.2" /> <id nullFlavor="NA" /> <code codeSystem="local" code="5821-4" displayName= "Automated urine sediment leukocyte count by microscopy (number/high power field )" /> <statusCode code="completed" /> <effectiveTime value= "500705786952" /> <value unit="[HPF]" xsi:type="PQ" value="" /> <referenceRange> <observationRange> <text>NRG</text> </observationRange> </referenceRange> </observation > </component> <component> <observation moodCode="EVN" classCode="OBS"> <templateId root="2.16.840.1.805175.10.20.22.4.2" /> <id nullFlavor="NA" /> <code codeSystem="local" code="04196-0 " displayName="Bacteria detection in urine sediment by light microscopy" /> <statusCode code="completed" /> <effectiveTime value= "942493491844" /> <value unit="" xsi:type="PQ" value="FEW" /> <interpretationCode codeSystem="local" code="*" /> <referenceRange> <observationRange> <text>NRG</text> </ observationRange> </referenceRange> </observation> </ component> <component> <observation moodCode="EVN" classCode="OBS"> <templateId root="2.16.840.1.872364.10.20.22.4.2" /> <id nullFlavor="NA" /> <code codeSystem="local" code="31979-1" displayName= "Squamous epithelial cells detection in urine sediment by light microscopy" /> <statusCode code="completed" /> <effectiveTime value= "247642195732" /> <value unit="" xsi:type="PQ" value="25-50" /> <interpretationCode codeSystem="local" code="*" /> <referenceRange> <observationRange> <text>NRG</text> </ observationRange> </referenceRange> </observation> </ component> <component> <observation moodCode="EVN" classCode="OBS"> <templateId root="216.840.1.537600.10..22.4.2" /> <id nullFlavor="NA" /> <code codeSystem="local" code="08795-6" displayName= "Crystals detection in urine sediment by light microscopy" /> < statusCode code="completed" /> <effectiveTime value="" /> <value unit="" xsi:type="PQ" value="NONE" /> <referenceRange> <observationRange> <text>NRG</text> </ observationRange> </referenceRange> </observation> </ component> <component> <observation moodCode="EVN" classCode="OBS"> <templateId root="16.840.1.485010.10..4.2" /> <id nullFlavor="NA" /> <code codeSystem="local" code="67981-7" displayName= "Casts detection in urine sediment by light microscopy" /> <statusCode code="completed" /> <effectiveTime value="" /> < value unit="" xsi:type="PQ" value="NONE" /> <referenceRange> <observationRange> <text>NRG</text> </observationRange > </referenceRange> </observation> </component> < component> <observation moodCode="EVN" classCode="OBS"> < templateId root="05.07.840.1.855068.10..22.4.2" /> <id nullFlavor="NA " /> <code codeSystem="local" code="8247-9" displayName="Mucus detection in urine sediment by light microscopy" /> <statusCode code= "completed" /> <effectiveTime value="" /> <value unit="" xsi:type="PQ" value="MODERATE" /> <interpretationCode codeSystem="local" code="*" /> <referenceRange> < observationRange> <text>NRG</text> </observationRange> </referenceRange> </observation> </component> < component> <observation moodCode="EVN" classCode="OBS"> < templateId root="216.840.1.236025.10..22.4.2" /> <id nullFlavor="NA " /> <code codeSystem="local" code="50886-0" displayName="Complete urinalysis with reflex to culture" /> <statusCode code="completed" /> <effectiveTime value="" /> <value unit="" xsi:type ="PQ" value="NO" /> <referenceRange> <observationRange> <text>NRG</text> </observationRange> </ referenceRange> </observation> </component> </organizer> </entry > <entry> <organizer moodCode="EVN" classCode="BATTERY"> <templateId root="05.07.840.1.934474.10...4.1" /> <id nullFlavor="NA" /> <code codeSystem="local" code="28001-7" displayName="Complete blood count (CBC) with automated white blood cell (WBC) differential" /> <statusCode code= "completed" /> <component> <observation moodCode="EVN" classCode= "OBS"> <templateId root="16.840.1.339118.10..22.4.2" /> < id nullFlavor="NA" /> <code codeSystem="local" code="6690-2" displayName="Blood leukocytes automated count (number/volume)" /> < statusCode code="completed" /> <effectiveTime value="634932038446" /> <value unit="10*3/uL" xsi:type="PQ" value="10.4" /> < referenceRange> <observationRange> <text>4.3-11.0</text > </observationRange> </referenceRange> </observation > </component> <component> <observation moodCode="EVN" classCode="OBS"> <templateId root="2.16.840.1.305831.10...4.2" /> <id nullFlavor="NA" /> <code codeSystem="local" code="789-8" displayName="Blood erythrocytes automated count (number/volume)" /> < statusCode code="completed" /> <effectiveTime value="180057341524" /> <value unit="10*6/uL" xsi:type="PQ" value="4.34" /> < interpretationCode codeSystem="local" code="" /> <referenceRange> <observationRange> <text>4.35-5.85</text> </ observationRange> </referenceRange> </observation> </ component> <component> <observation moodCode="EVN" classCode="OBS"> <templateId root="2.16.840.1.275786.01.08.22.4.2" /> <id nullFlavor="NA" /> <code codeSystem="local" code="98202-1" displayName= "Venous blood hemoglobin measurement (mass/volume)" /> <statusCode code ="completed" /> <effectiveTime value="079563665254" /> <value unit="g/dL" xsi:type="PQ" value="12.9" /> <referenceRange> < observationRange> <text>11.5-16.0</text> </ observationRange> </referenceRange> </observation> </ component> <component> <observation moodCode="EVN" classCode="OBS"> <templateId root="2.16.840.1.374059.01.08.22.4.2" /> <id nullFlavor="NA" /> <code codeSystem="local" code="16606-9" displayName= "Blood hematocrit (volume fraction)" /> <statusCode code="completed" / > <effectiveTime value="875254360507" /> <value unit="%" xsi:type="PQ" value="38" /> <referenceRange> < observationRange> <text>35-52</text> </observationRange > </referenceRange> </observation> </component> < component> <observation moodCode="EVN" classCode="OBS"> < templateId root="2.16.840.1.227206.10..22.4.2" /> <id nullFlavor="NA " /> <code codeSystem="local" code="787-2" displayName="Automated erythrocyte mean corpuscular volume" /> <statusCode code="completed" / > <effectiveTime value="225954622820" /> <value unit="[foz_us] " xsi:type="PQ" value="86" /> <referenceRange> < observationRange> <text>80-99</text> </observationRange > </referenceRange> </observation> </component> < component> <observation moodCode="EVN" classCode="OBS"> < templateId root="2.16.840.1.558901.10..22.4.2" /> <id nullFlavor="NA " /> <code codeSystem="local" code="785-6" displayName="Automated erythrocyte mean corpuscular hemoglobin (mass per erythrocyte)" /> < statusCode code="completed" /> <effectiveTime value="193451330211" /> <value unit="pg" xsi:type="PQ" value="30" /> <referenceRange> <observationRange> <text>25-34</text> </ observationRange> </referenceRange> </observation> </ component> <component> <observation moodCode="EVN" classCode="OBS"> <templateId root="2.16.840.1.848925.10.20.22.4.2" /> <id nullFlavor="NA" /> <code codeSystem="local" code="786-4" displayName= "Automated erythrocyte mean corpuscular hemoglobin concentration measurement ( mass/volume)" /> <statusCode code="completed" /> < effectiveTime value="582310252761" /> <value unit="g/dL" xsi:type="PQ" value="34" /> <referenceRange> <observationRange> <text>32-36</text> </observationRange> </referenceRange > </observation> </component> <component> <observation moodCode="EVN" classCode="OBS"> <templateId root= "2.16.840.1.004341.01.08.22.4.2" /> <id nullFlavor="NA" /> < code codeSystem="local" code="788-0" displayName="Automated erythrocyte distribution width ratio" /> <statusCode code="completed" /> < effectiveTime value="327905458614" /> <value unit="%" xsi:type="PQ " value="12.0" /> <referenceRange> <observationRange> <text>10.0-14.5</text> </observationRange> </ referenceRange> </observation> </component> <component> <observation moodCode="EVN" classCode="OBS"> <templateId root= "2.16.840.1.587900.10..22.4.2" /> <id nullFlavor="NA" /> < code codeSystem="local" code="777-3" displayName="Automated blood platelet count (count/volume)" /> <statusCode code="completed" /> < effectiveTime value="257327511743" /> <value unit="10*3/uL" xsi:type= "PQ" value="230" /> <referenceRange> <observationRange> <text>130-400</text> </observationRange> </ referenceRange> </observation> </component> <component> <observation moodCode="EVN" classCode="OBS"> <templateId root= "216.840.1.373021.10.2022.4.2" /> <id nullFlavor="NA" /> < code codeSystem="local" code="17092-2" displayName="Automated blood platelet mean volume measurement" /> <statusCode code="completed" /> < effectiveTime value="364733563927" /> <value unit="[foz_us]" xsi:type= "PQ" value="9.8" /> <referenceRange> <observationRange> <text>7.4-10.4</text> </observationRange> </ referenceRange> </observation> </component> <component> <observation moodCode="EVN" classCode="OBS"> <templateId root= "05.07.840.1.991618.10..4.2" /> <id nullFlavor="NA" /> < code codeSystem="local" code="770-8" displayName="Automated blood neutrophils/ 100 leukocytes" /> <statusCode code="completed" /> < effectiveTime value="790915918288" /> <value unit="%" xsi:type="PQ " value="74" /> <referenceRange> <observationRange> <text>42-75</text> </observationRange> </ referenceRange> </observation> </component> <component> <observation moodCode="EVN" classCode="OBS"> <templateId root= "216.840.1.787051.01.08.22.4.2" /> <id nullFlavor="NA" /> < code codeSystem="local" code="736-9" displayName="Automated blood lymphocytes/ 100 leukocytes" /> <statusCode code="completed" /> < effectiveTime value="098738839192" /> <value unit="%" xsi:type="PQ " value="18" /> <referenceRange> <observationRange> <text>12-44</text> </observationRange> </ referenceRange> </observation> </component> <component> <observation moodCode="EVN" classCode="OBS"> <templateId root= "2.16.840.1.461518.01.08.22.4.2" /> <id nullFlavor="NA" /> < code codeSystem="local" code="26720-7" displayName="Blood monocytes/100 leukocytes" /> <statusCode code="completed" /> <effectiveTime value="912037459997" /> <value unit="%" xsi:type="PQ" value="7" /> <referenceRange> <observationRange> <text>0-12 </text> </observationRange> </referenceRange> </ observation> </component> <component> <observation moodCode= "EVN" classCode="OBS"> <templateId root="2.16.840.1.887172....4.2 " /> <id nullFlavor="NA" /> <code codeSystem="local" code="713 -8" displayName="Automated blood eosinophils/100 leukocytes" /> < statusCode code="completed" /> <effectiveTime value="596882254367" /> <value unit="%" xsi:type="PQ" value="0" /> <referenceRange > <observationRange> <text>0-10</text> </ observationRange> </referenceRange> </observation> </ component> <component> <observation moodCode="EVN" classCode="OBS"> <templateId root="2.16.840.1.414176.10..22.4.2" /> <id nullFlavor="NA" /> <code codeSystem="local" code="706-2" displayName= "Automated blood basophils/100 leukocytes" /> <statusCode code= "completed" /> <effectiveTime value="" /> <value unit="%" xsi:type="PQ" value="0" /> <referenceRange> < observationRange> <text>0-10</text> </observationRange> </referenceRange> </observation> </component> < component> <observation moodCode="EVN" classCode="OBS"> < templateId root="2.16.840.1.374794.10..22.4.2" /> <id nullFlavor="NA " /> <code codeSystem="local" code="751-8" displayName="Blood neutrophils automated count (number/volume)" /> <statusCode code= "completed" /> <effectiveTime value="776731644731" /> <value unit="10*3" xsi:type="PQ" value="7.7" /> <referenceRange> < observationRange> <text>1.8-7.8</text> </ observationRange> </referenceRange> </observation> </ component> <component> <observation moodCode="EVN" classCode="OBS"> <templateId root="216.840.1.956194.10..22.4.2" /> <id nullFlavor="NA" /> <code codeSystem="local" code="731-0" displayName= "Blood lymphocytes automated count (number/volume)" /> <statusCode code ="completed" /> <effectiveTime value="" /> <value unit="10*3" xsi:type="PQ" value="1.9" /> <referenceRange> < observationRange> <text>1.0-4.0</text> </ observationRange> </referenceRange> </observation> </ component> <component> <observation moodCode="EVN" classCode="OBS"> <templateId root="2.16.840.1.234047.10..4.2" /> <id nullFlavor="NA" /> <code codeSystem="local" code="742-7" displayName= "Blood monocytes automated count (number/volume)" /> <statusCode code= "completed" /> <effectiveTime value="435276626054" /> <value unit="10*3" xsi:type="PQ" value="0.7" /> <referenceRange> < observationRange> <text>0.0-1.0</text> </ observationRange> </referenceRange> </observation> </ component> <component> <observation moodCode="EVN" classCode="OBS"> <templateId root="216.840.1.916080.01.08.22.4.2" /> <id nullFlavor="NA" /> <code codeSystem="local" code="711-2" displayName= "Automated eosinophil count" /> <statusCode code="completed" /> <effectiveTime value="623740508187" /> <value unit="10*3/uL" xsi: type="PQ" value="0.0" /> <referenceRange> <observationRange > <text>0.0-0.3</text> </observationRange> </ referenceRange> </observation> </component> <component> <observation moodCode="EVN" classCode="OBS"> <templateId root= "2.16.840.1.747862.10.22.4.2" /> <id nullFlavor="NA" /> < code codeSystem="local" code="704-7" displayName="Automated blood basophil count (count/volume)" /> <statusCode code="completed" /> < effectiveTime value="833037423867" /> <value unit="10*3/uL" xsi:type= "PQ" value="0.0" /> <referenceRange> <observationRange> <text>0.0-0.1</text> </observationRange> </ referenceRange> </observation> </component> </organizer> </entry > <entry> <organizer moodCode="EVN" classCode="BATTERY"> <templateId root="2.16.840.1.209332.10.20.22.4.1" /> <id nullFlavor="NA" /> <code codeSystem="local" code="65387-6" displayName="Comprehensive metabolic panel" / > <statusCode code="completed" /> <component> <observation moodCode="EVN" classCode="OBS"> <templateId root= "2.16.840.1.232529.10.20.22.4.2" /> <id nullFlavor="NA" /> < code codeSystem="local" code="2951-2" displayName="Serum or plasma sodium measurement (moles/volume)" /> <statusCode code="completed" /> <effectiveTime value="624176427444" /> <value unit="mmol/L" xsi:type= "PQ" value="138" /> <referenceRange> <observationRange> <text>135-145</text> </observationRange> </ referenceRange> </observation> </component> <component> <observation moodCode="EVN" classCode="OBS"> <templateId root= "216.840.1.467497.10.20.22.4.2" /> <id nullFlavor="NA" /> < code codeSystem="local" code="2823-3" displayName="Serum or plasma potassium measurement (moles/volume)" /> <statusCode code="completed" /> <effectiveTime value="697720260802" /> <value unit="mmol/L" xsi:type= "PQ" value="3.4" /> <interpretationCode codeSystem="local" code="" / > <referenceRange> <observationRange> <text>3.6 -5.0</text> </observationRange> </referenceRange> </ observation> </component> <component> <observation moodCode= "EVN" classCode="OBS"> <templateId root="2.16.840.1.345234.10..22.4.2 " /> <id nullFlavor="NA" /> <code codeSystem="local" code= "" displayName="Serum or plasma chloride measurement (moles/volume)" /> <statusCode code="completed" /> <effectiveTime value= "224117660299" /> <value unit="mmol/L" xsi:type="PQ" value="104" /> <referenceRange> <observationRange> <text>98-107< /text> </observationRange> </referenceRange> </ observation> </component> <component> <observation moodCode= "EVN" classCode="OBS"> <templateId root="2.16.840.1.885328.10..22.4.2 " /> <id nullFlavor="NA" /> <code codeSystem="local" code= "2027-11" displayName="Carbon dioxide" /> <statusCode code="completed" / > <effectiveTime value="402154584763" /> <value unit="mmol/L" xsi:type="PQ" value="24" /> <referenceRange> < observationRange> <text>21-32</text> </observationRange > </referenceRange> </observation> </component> < component> <observation moodCode="EVN" classCode="OBS"> < templateId root="2.16.840.1.674353.10.20.22.4.2" /> <id nullFlavor="NA " /> <code codeSystem="local" code="19350-5" displayName="Serum or plasma anion gap determination (moles/volume)" /> <statusCode code= "completed" /> <effectiveTime value="664022372960" /> <value unit="mmol/L" xsi:type="PQ" value="10" /> <referenceRange> < observationRange> <text>5-14</text> </observationRange> </referenceRange> </observation> </component> < component> <observation moodCode="EVN" classCode="OBS"> < templateId root="2.16.840.1.102419.10..22.4.2" /> <id nullFlavor="NA " /> <code codeSystem="local" code="3094-0" displayName="Serum or plasma urea nitrogen measurement (mass/volume)" /> <statusCode code= "completed" /> <effectiveTime value="690940187413" /> <value unit="mg/dL" xsi:type="PQ" value="14" /> <referenceRange> < observationRange> <text>7-18</text> </observationRange> </referenceRange> </observation> </component> < component> <observation moodCode="EVN" classCode="OBS"> < templateId root="2.16.840.1.162105.10..22.4.2" /> <id nullFlavor="NA " /> <code codeSystem="local" code="2160-0" displayName="Serum or plasma creatinine measurement (mass/volume)" /> <statusCode code= "completed" /> <effectiveTime value="369329364675" /> <value unit="mg/dL" xsi:type="PQ" value="0.86" /> <referenceRange> <observationRange> <text>0.60-1.30</text> </ observationRange> </referenceRange> </observation> </ component> <component> <observation moodCode="EVN" classCode="OBS"> <templateId root="2.16.840.1.764490.10..22.4.2" /> <id nullFlavor="NA" /> <code codeSystem="local" code="3097-3" displayName= "Serum or plasma urea nitrogen/creatinine mass ratio" /> <statusCode code="completed" /> <effectiveTime value="993723133869" /> < value unit="" xsi:type="PQ" value="16" /> <referenceRange> < observationRange> <text>NRG</text> </observationRange> </referenceRange> </observation> </component> < component> <observation moodCode="EVN" classCode="OBS"> < templateId root="216.840.1.833934.10...4.2" /> <id nullFlavor="NA " /> <code codeSystem="local" code="00331-5" displayName="Serum or plasma creatinine measurement with calculation of estimated glomerular filtration rate" /> <statusCode code="completed" /> < effectiveTime value="292795474193" /> <value unit="" xsi:type="PQ" value=">" /> <referenceRange> <observationRange> <text>NRG</text> </observationRange> </referenceRange > </observation> </component> <component> <observation moodCode="EVN" classCode="OBS"> <templateId root= "2.16.840.1.267564.10..22.4.2" /> <id nullFlavor="NA" /> < code codeSystem="local" code="2345-7" displayName="Serum or plasma glucose measurement (mass/volume)" /> <statusCode code="completed" /> <effectiveTime value="126161585397" /> <value unit="mg/dL" xsi:type="PQ " value="78" /> <referenceRange> <observationRange> <text>70-105</text> </observationRange> </ referenceRange> </observation> </component> <component> <observation moodCode="EVN" classCode="OBS"> <templateId root= "2.16.840.1.034414.10.20.22.4.2" /> <id nullFlavor="NA" /> < code codeSystem="local" code="19291-2" displayName="Serum or plasma calcium measurement (mass/volume)" /> <statusCode code="completed" /> <effectiveTime value="678392164907" /> <value unit="mg/dL" xsi:type="PQ " value="8.8" /> <referenceRange> <observationRange> <text>8.5-10.1</text> </observationRange> </ referenceRange> </observation> </component> <component> <observation moodCode="EVN" classCode="OBS"> <templateId root= "2.16.840.1.893157.10.20.22.4.2" /> <id nullFlavor="NA" /> < code codeSystem="local" code="1974-04" displayName="Serum or plasma total bilirubin measurement (mass/volume)" /> <statusCode code="completed" / > <effectiveTime value="411113057802" /> <value unit="mg/dL" xsi:type="PQ" value="1.7" /> <interpretationCode codeSystem="local" code="" /> <referenceRange> <observationRange> <text>0.1-1.0</text> </observationRange> </referenceRange > </observation> </component> <component> <observation moodCode="EVN" classCode="OBS"> <templateId root= "2.16.840.1.063165.10.20.22.4.2" /> <id nullFlavor="NA" /> < code codeSystem="local" code="6768-6" displayName="Serum or plasma alkaline phosphatase measurement (enzymatic activity/volume)" /> <statusCode code="completed" /> <effectiveTime value="818864430494" /> < value unit="U/L" xsi:type="PQ" value="53" /> <referenceRange> <observationRange> <text>40-136</text> </ observationRange> </referenceRange> </observation> </ component> <component> <observation moodCode="EVN" classCode="OBS"> <templateId root="216.840.1.597018.10..22.4.2" /> <id nullFlavor="NA" /> <code codeSystem="local" code="192" displayName= "Serum or plasma aspartate aminotransferase measurement (enzymatic activity/ volume)" /> <statusCode code="completed" /> <effectiveTime value="769962751549" /> <value unit="U/L" xsi:type="PQ" value="15" /> <referenceRange> <observationRange> <text>5-34< /text> </observationRange> </referenceRange> </ observation> </component> <component> <observation moodCode= "EVN" classCode="OBS"> <templateId root="216.840.1.812368.10.20.22.4.2 " /> <id nullFlavor="NA" /> <code codeSystem="local" code= "17404-27" displayName="Serum or plasma alanine aminotransferase measurement ( enzymatic activity/volume)" /> <statusCode code="completed" /> <effectiveTime value="513733102905" /> <value unit="U/L" xsi:type="PQ " value="15" /> <referenceRange> <observationRange> <text>0-55</text> </observationRange> </referenceRange > </observation> </component> <component> <observation moodCode="EVN" classCode="OBS"> <templateId root= "2.16.840.1.116177.10.20.22.4.2" /> <id nullFlavor="NA" /> < code codeSystem="local" code="2885-2" displayName="Serum or plasma protein measurement (mass/volume)" /> <statusCode code="completed" /> <effectiveTime value="640923546013" /> <value unit="g/dL" xsi:type="PQ " value="6.7" /> <referenceRange> <observationRange> <text>6.4-8.2</text> </observationRange> </ referenceRange> </observation> </component> <component> <observation moodCode="EVN" classCode="OBS"> <templateId root= "2.16.840.1.706520.10.20.22.4.2" /> <id nullFlavor="NA" /> < code codeSystem="local" code="1751-7" displayName="Serum or plasma albumin measurement (mass/volume)" /> <statusCode code="completed" /> <effectiveTime value="368139011913" /> <value unit="g/dL" xsi:type="PQ " value="4.0" /> <referenceRange> <observationRange> <text>3.2-4.5</text> </observationRange> </ referenceRange> </observation> </component> </organizer> </entry > <entry> <organizer moodCode="EVN" classCode="BATTERY"> <templateId root="16.840.1.285168.10..22.4.1" /> <id nullFlavor="NA" /> <code codeSystem="local" code="3040" displayName="Lipase" /> <statusCode code= "completed" /> <component> <observation moodCode="EVN" classCode= "OBS"> <templateId root="05.07.840.1.236209..22.4.2" /> < id nullFlavor="NA" /> <code codeSystem="local" code="304" displayName="Lipase" /> <statusCode code="completed" /> < effectiveTime value="062276889105" /> <value unit="U/L" xsi:type="PQ" value="23" /> <referenceRange> <observationRange> <text></text> </observationRange> </referenceRange> </observation> </component> </organizer> </entry> <entry> < organizer moodCode="EVN" classCode="BATTERY"> <templateId root= "05.07.840.1.288769.10..22.4.1" /> <id nullFlavor="NA" /> <code codeSystem="local" code="54583-6" displayName="Serum or plasma choriogonadotropin measurement (units/volume)" /> <statusCode code= "completed" /> <component> <observation moodCode="EVN" classCode= "OBS"> <templateId root="16.840.1.171660.10..22.4.2" /> < id nullFlavor="NA" /> <code codeSystem="local" code="97073-5" displayName="Serum or plasma choriogonadotropin measurement (units/volume)" /> <statusCode code="completed" /> <effectiveTime value= "890588498690" /> <value unit="m[iU]/mL" xsi:type="PQ" value="402" /> <interpretationCode codeSystem="local" code="" /> < referenceRange> <observationRange> <text><5</text> </observationRange> </referenceRange> </observation> </component> </organizer> </entry> <entry> <organizer moodCode="EVN " classCode="BATTERY"> <templateId root="2.16.840.1.406704.10.20.22.4.1" / > <id nullFlavor="NA" /> <code codeSystem="local" code="91202-9" displayName="Serum or plasma choriogonadotropin measurement (units/volume)" /> <statusCode code="completed" /> <component> <observation moodCode="EVN" classCode="OBS"> <templateId root= "2.16.840.1.375688.10.20.22.4.2" /> <id nullFlavor="NA" /> < code codeSystem="local" code="13874-9" displayName="Serum or plasma choriogonadotropin measurement (units/volume)" /> <statusCode code= "completed" /> <effectiveTime value="628508915316" /> <value unit="m[iU]/mL" xsi:type="PQ" value="149" /> <interpretationCode codeSystem="local" code="" /> <referenceRange> < observationRange> <text><5</text> </observationRange > </referenceRange> </observation> </component> </ organizer> </entry></section> Encounters ACCT No. Visit Date/Time Discharge Status Pt. Type Provider Facility Loc./Unit Complaint [id number] 09/16/2015 12:29:00 09/16/2015 17:30:00 DIS Outpatient SU MUÑIZ, BRIDGER [facility] [id number] 09/13/2015 14:05:00 09/13/2015 23:59:59 CLS Outpatient SU MUÑIZ, BRIDGER N [facility] PREOP [id number] 11/30/2014 11:52:00 11/30/2014 14:36:00 DIS Outpatient MONIQUE SOLITARIO MD [facility] [id number] 11/29/2014 05:40:00 11/29/2014 23:59:59 CLS Outpatient KASSI MUÑIZ, MONIQUE Payne [facility] PREOP [id number] 11/26/2014 19:32:00 11/26/2014 22:14:00 DIS Emergency ALEKS ANTON DO K [facility] ER [id number] 05/06/2014 10:49:00 05/06/2014 13:26:00 DIS Emergency ALEKS ANTON DO K [facility] ER [id number] 04/05/2014 09:35:00 04/05/2014 11:12:00 DIS Emergency JAVI GARLAND MD [facility] ER [id number] 02/05/2014 09:55:00 02/05/2014 12:35:00 DIS Outpatient AYDEN AVINASH [address] [id number] 03/16/2013 20:43:00 03/16/2013 23:01:00 DIS Emergency CHARLES MIRANDA MD [facility] ER [id number] 12/24/2012 20:12:00 12/24/2012 21:57:00 DIS Emergency MELQUIADES OCHOA MD [facility] ER [id number] 05/01/2017 11:51:00 Document Registration [id number] 04/29/2017 14:31:00 ACT Emergency BRAYAN PEREZ [facility] ER ABD PAIN [id number] 06/08/2012 06:30:00 Document Registration [id number] 06/01/2012 07:42:00 Document Registration [id number] 02/05/2011 20:35:00 Document Registration [id number] 06/03/2016 10:00:00 06/03/2016 10:28:00 DIS Emergency Tiffanie MUÑIZ, [facility] [id number] 04/09/2016 08:28:00 04/12/2016 12:27:00 DIS Outpatient Lisa MUÑIZ, [facility] [id number] 02/24/2016 00:55:00 02/24/2016 03:20:00 DIS Emergency Tiffanie MUÑIZ, [facility] [id number] 01/31/2016 19:11:00 01/31/2016 21:26:00 DIS Emergency [facility]
== END 2017-04-29 17:50 | disposition home or self-care (01) ==
LOC: EDUNIT# 14:29 → ER 14:31
DX: O20.0 Threatened abortion (principal); O23.40 Unspecified infection of urinary tract in pregnancy, unspecified trimester; O99.280 Endocrine, nutritional and metabolic diseases complicating pregnancy, unspecified trimester; E86.9 Volume depletion, unspecified; O99.340 Other mental disorders complicating pregnancy, unspecified trimester; F32.9 Major depressive disorder, single episode, unspecified; O99.320 Drug use complicating pregnancy, unspecified trimester; F12.10 Cannabis abuse, uncomplicated; Z87.19 Personal history of other diseases of the digestive system; Z87.01 Personal history of pneumonia (recurrent); Z91.5 Personal history of self-harm; Z88.5 Allergy status to narcotic agent; Z88.0 Allergy status to penicillin; Z3A.00 Weeks of gestation of pregnancy not specified
CPT/HCPCS: 36415; 76801; 76817; 80053; 81000; 83690; 84702; 84703; 85025; 96361; 96374; 96375

== ENCOUNTER → 2017-05-01 | Outpatient (CLI) | payer BC, MEDICAID ==
[~2017-05-01] MED LIST changes: +LORA-404 PO; +OMEP20CA12 PO
== END ==
LOC: LAB 10:23
PROVIDERS: ATTEND Physician Assistant
DX: O20.0 Threatened abortion (principal)
CPT/HCPCS: 36415; 84702

== ENCOUNTER → 2017-05-05 | Outpatient (CLI) | payer BC, MEDICAID | LOC: LAB 10:21 | PROVIDERS: ATTEND Family Medicine | DX: O03.9 Complete or unspecified spontaneous abortion without complication (principal) | CPT/HCPCS: 36415; 84702; 87804 ==

== ENCOUNTER 2017-08-08 15:19 | Emergency (ER) | payer BC, MEDICAID ==
[~2017-08-08] VITALS: Ht 160 cm; Wt 53.5 kg
[2017-08-08 16:29] VITALS: BP 107/66
--- NOTE | 2017-08-08 18:03 | ED GU-Female ---
General Chief Complaint: Abdominal/GI Problems Stated Complaint: STOMACH CRAMPS Nursing Triage Note: ARRIVED VIA AMB TO ROOM 05. STATES SHE HAS HAD X1 NEG AND POSITIVE HOME PREG TEST AND HAS HAD SOME CRAMPING SINCE WEDNESDAY. WANTS THE ER TO DO A PREG TEST. Nursing Sepsis Screen: No Definite Risk Source: patient, other (friend) Exam Limitations: no limitations History of Present Illness Date Seen by Provider: August 08, 2017 Time Seen by Provider: 18:03 Initial Comments 22 YO FEMALE PATIENT PRESENTS TO THE ED WITH NEED FOR A TEST TO CONFIRM . PATIENT STATES SHE HAS HAD 1 NEGATIVE AND SEVERAL POSITIVE TESTS AT HOME. SHE HAS HAD MILD CRAMPING SINCE WEDNESDAY. DENIES VAGINAL BLEEDING OR VAGINAL DISCHARGE. PATIENT DOES REPORT USING BCP'S. Severity/Quality: cramping Location: suprapubic Radiation: none Activities at Onset: none Sexual [place] History: less than 2 months ago, single partner Allergies and Home Medications Allergies Coded Allergies: hydrocodone (Unverified Allergy, Intermediate, HIVES, 09/16/15) penicillin (Unverified Allergy, Mild, RASH, 09/16/15) Home Medications Lorazepam 0.5 Mg Tablet, 0.5 MG PO PRN, (Reported) Patient Home Medication List Home Medication List Reviewed: Yes Review of Systems Constitutional: No chills, No dizziness, No fever, No malaise Respiratory: no symptoms reported Cardiovascular: no symptoms reported Gastrointestinal: abdominal pain (SUPRAPUBIC ABDOMINAL CRAMPING.); No constipation, No diarrhea, No loss of appetite, No nausea, No vomiting Genitourinary: see HPI; denies burning, denies discharge, denies dysuria, denies frequency, denies flank pain; pain (SUPRAPUBIC ABD CRAMPING) : Yes Musculoskeletal: No back pain Skin: no symptoms reported Psychiatric/Neurological: No Symptoms Reported All Other Systemes Reviewed Negative Unless Noted: Yes (Negative excepted noted.) Past Rfaspvc-Lxspij-Exmnbl Hx Past Med/Social Hx: Reviewed and Corrections made Patient Social History Alcohol Use: Rarely Uses Alcohol Beverage of Choice: Wine Recreational Drug Use: Yes Drug of Choice: POT Smoking Status: Current Everyday Smoker Type Used: Cigarettes Recent Foreign Travel: No Contact w/Someone Who Travel: No Recent Infectious Disease Expo: No Recent Hopitalizations: No Immunizations Up To Date Tetanus Booster (TDap): More than 5yrs PED Vaccines UTD: Yes Date of Influenza Vaccine: Dec 20, 2013 Seasonal Allergies Seasonal Allergies: Yes Past Medical History Surgeries: Yes (EGD, RT ANKLE FX, LT WRIST FX) Appendectomy, Orthopedic Respiratory: Yes (OCCASIONAL BRONCHITIS) Pneumonia Cardiac: No Neurological: No Last Menstrual Period: Jun 29, 2017 Hx : 2 Hx Para: 0 Hx Total # of Abortions (Sp): 1 Reproductive Disorders: No Female Reproductive Disorders: Denies Sexually Transmitted Disease: No Genitourinary: No Gastrointestinal: Yes (ULCERS) Esophagitis, Ulcer Musculoskeletal: Yes (WRIST AND ANKLE) Fractures Endocrine: No Cancer: No Psychosocial: Yes Eating Disorder, Anxiety, Suicide Attempts, Depression Integumentary: No Blood Disorders: No Family Medical History Reviewed Nursing Family Hx No Pertinent Family Hx Physical Exam Vital Signs Capillary Refill : Less Than 3 Seconds General Appearance: WD/WN, no apparent distress Neck: supple, normal inspection Cardiovascular: normal peripheral pulses, regular rate, rhythm, no edema, no murmur Respiratory: lungs clear, normal breath sounds, no respiratory distress, no accessory muscle use Gastrointestinal: normal bowel sounds, non tender, soft, no organomegaly Back: normal inspection, no CVA tenderness Extremities: no pedal edema, normal capillary refill Neurologic/Psychiatric: alert, normal mood/affect, oriented x 3 Skin: normal color, warm/dry Progress/Results/Core Measures Suspected Sepsis Recent Fever Within 48 Hours: No Infection Criteria Present: None New/Unexplained Altered Menta: No Sepsis Screen: No Definite Risk SIRS Temperature:98.0 Pulse: 68 Respiratory Rate: 18 Blood Pressure 107 /66 Mean: 80 Results/Orders Lab Results My Orders Vital Signs/I&O Capillary Refill : Less Than 3 Seconds Blood Pressure Mean: 80 Departure Communication (Admissions) LABORATORY RESULTS DISCUSSED WITH THE PATIENT. PATIENT TO F/U WITH DR. KING OR THE REGISTERED NURSE RENAL OF HER CHOICE FOR RECHECK AND REPEAT LABS. Impression Primary Impression: Positive test Disposition: HOME, SELF-CARE Condition: Improved Departure-Patient Inst. Decision time for Depature: 18:52 Referrals: KAYODE WILSON KAY W ARNP SALVADOR, LISA A MD (PCP/Family) Primary Care Physician PATRICK RAE DO Patient Instructions: How to Plan and Prepare for a Healthy , Medications and Add. Discharge Instructions: All discharge instructions reviewed with patient and/or family. Voiced understanding. Dreadenol extra strength zohd-rsq-hvrwloi as directed for pain if needed. Drink plenty of fluids. Rest. Follow-up with Dr. King or the licensed journeyman electrician of your choice for recheck and to establish care. Call for an appointment time. Repeat labs in 2-3 days as instructed. Follow-up with Dr. King for results. Return to the emergency department for worsened symptoms , vaginal bleeding with greater than 2 pads per hour for greater than 2 hours, vaginal discharge, fever, vomiting, or any other concerns. Copy Copies To 1: ALEKS KING MD, GRETCHEN L PA August 08, 2017 18:03
--- OUTSIDE RECORDS SUMMARY | 2017-08-09 16:28 | XMS REPORT ---
Author Author TRACIE SAUL Organization [facility] Address [address] [place] [address] Care Team Providers Care Resident Care Associate Name Role Phone YANETHDELLTRACIE Unavailable PROBLEMS Type Condition ICD9-CM Code [id number] Code Onset Dates Condition Status SNOMED Code Problem Cannabis dependence with or without physiological dependence F12.20 Active 38845095 Problem Generalized anxiety disorder F41.1 Active [id number] Problem Episodic mood disorder F39 Active 10195428 ALLERGIES No Information ENCOUNTERS Encounter Location Date Diagnosis [facility] [address] [place] [address] Dec, Cannabis dependence with or without physiological dependence F12.20 [facility] [address] [place] [address] Nov, Cannabis dependence with or without physiological dependence F12.20 [facility] [address] [place] [address] Nov, Cannabis dependence with or without physiological dependence F12.20 [facility] [address] [place] [address] Nov, [facility] [id number] [place] [phone] Nov, Generalized anxiety disorder F41.1 and Episodic mood disorder F39 [facility] [address] [place] [address] Nov, Cannabis dependence with or without physiological dependence F12.20 [facility] [address] [address] Oct, [facility] [id number] [place] [phone] Oct, Generalized anxiety disorder F41.1 and Episodic mood disorder F39 [facility] [id number] [place] [phone] Oct, [facility] [address] [facility] [id number] [place] [address] Oct, Uses oral contraception V25.41 and Screen for STD (sexually transmitted disease) V74.5 [facility] [address] [facility] [id number] [place] [address] Sep, Routine child health exam V20.2 ; Dietary counseling and surveillance V65.3 ; Exercise counseling V65.41 ; Hematochezia 578.1 ; High risk sexual behavior V69.2 ; ADHD (attention deficit hyperactivity disorder) 314.01 ; GARDASIL (HPV) DX V04.89 ; HEP A (PED/ADOL 2-DOSE) DX V05.3 ; MENINGOCOCCAL DX V03.89 and TDAP DX V06.1 IMMUNIZATIONS No Known Immunizations SOCIAL HISTORY Never Assessed REASON FOR VISIT SUBAB-F/U PLAN OF CARE Activity Details Follow Up 2 - 3 Days Reason: VITAL SIGNS MEDICATIONS Unknown Medications RESULTS No Results PROCEDURES Procedure Date Ordered Result Body Site Psychotherapy, patient &/family, 30 minutes, established patient Dec 01, 2016 INSTRUCTIONS MEDICATIONS ADMINISTERED No Known Medications MEDICAL (GENERAL) HISTORY Type Description Date Medical History bulemia nervosa Medical History depression Medical History acid reflux Medical History ulcers Medical History concussion x 2 Medical History broken nose x 2 Medical History broken left wrist Medical History seasonal allergies Surgical History appendectomy Surgical History colonoscopy
--- OUTSIDE RECORDS SUMMARY | 2017-08-09 16:28 | XMS REPORT ---
Author Author JUVENCIOELIAN GOODMAN [facility] Address [address] [place] [address] Care Team Providers Care Supervisor [employer] Name Role Phone ELIAN HENNING Unavailable PROBLEMS Type Condition ICD9-CM Code [id number] Code Onset Dates Condition Status SNOMED Code Problem Cannabis dependence with or without physiological dependence F12.20 Active 16866975 Problem Generalized anxiety disorder F41.1 Active 27005593 Problem Episodic mood disorder F39 Active 19936623 ALLERGIES No Information ENCOUNTERS Encounter Location Date Diagnosis [facility] [address] [place] [address] Dec, Cannabis dependence with or without physiological dependence F12.20 [facility] [address] [place] [address] Nov, Cannabis dependence with or without physiological dependence F12.20 [facility] [address] [place] [address] Nov, Cannabis dependence with or without physiological dependence F12.20 [facility] [address] [place] [address] Nov, [facility] [id number] [place] [address] Nov, Generalized anxiety disorder F41.1 and Episodic mood disorder F39 [facility] [address] [place] [address] Nov, Cannabis dependence with or without physiological dependence F12.20 [facility] [id number], [place] [address] Oct, [facility] [id number] [place] [address] Oct, Generalized anxiety disorder F41.1 and Episodic mood disorder F39 [facility] [id number] [place] [address] Oct, [facility] [address] [facility] [place] [id number] [place] [address] Oct, Uses oral contraception V25.41 and Screen for STD (sexually transmitted disease) V74.5 [facility] [address] [facility] [place] [place] [id number] [place] [address] Sep, Routine child health exam V20.2 ; Dietary counseling and surveillance V65.3 ; Exercise counseling V65.41 ; Hematochezia 578.1 ; High risk sexual behavior V69.2 ; ADHD (attention deficit hyperactivity disorder) 314.01 ; GARDASIL (HPV) DX V04.89 ; HEP A (PED/ADOL 2-DOSE) DX V05.3 ; MENINGOCOCCAL DX V03.89 and TDAP DX V06.1 IMMUNIZATIONS No Known Immunizations SOCIAL HISTORY Never Assessed REASON FOR VISIT ATS brief PLAN OF CARE VITAL SIGNS MEDICATIONS Unknown Medications RESULTS No Results PROCEDURES Procedure Date Ordered Result Body Site Alcohol and/or drug services Nov 17, 2016 INSTRUCTIONS MEDICATIONS ADMINISTERED No Known Medications MEDICAL (GENERAL) HISTORY Type Description Date Medical History bulemia nervosa Medical History depression Medical History acid reflux Medical History ulcers Medical History concussion x 2 Medical History broken nose x 2 Medical History broken left wrist Medical History seasonal allergies Surgical History appendectomy Surgical History colonoscopy
--- OUTSIDE RECORDS SUMMARY | 2017-08-09 16:28 | XMS REPORT ---
Author Author TRACIE SAUL Organization [facility] Address [address] [place] [address] Care Team Providers Care Plating Operator Name Role Phone YANETHDELLTRACIE Unavailable PROBLEMS Type Condition ICD9-CM Code [id number] Code Onset Dates Condition Status SNOMED Code Problem Cannabis dependence with or without physiological dependence F12.20 Active 40780339 Problem Generalized anxiety disorder F41.1 Active 95844451 Problem Episodic mood disorder F39 Active 98910870 ALLERGIES No Information ENCOUNTERS Encounter Location Date Diagnosis [facility] [address] [place] [address] Dec, Cannabis dependence with or without physiological dependence F12.20 [facility] [address] [place] [address] Nov, Cannabis dependence with or without physiological dependence F12.20 [facility] [address] [place] [address] Nov, Cannabis dependence with or without physiological dependence F12.20 [facility] [address] [place] [address] Nov, [facility] [place] [id number] [place] [address] Nov, Generalized anxiety disorder F41.1 and Episodic mood disorder F39 [facility] [address] [place] [address] Nov, Cannabis dependence with or without physiological dependence F12.20 [facility] [address], [place] [address] Oct, [facility] [place] [id number] [place] [address] Oct, Generalized anxiety disorder F41.1 and Episodic mood disorder F39 [facility] [place] [id number] [place] [address] Oct, [facility] [place] [address] [facility] [id number] [place] [address] Oct, Uses oral contraception V25.41 and Screen for STD (sexually transmitted disease) V74.5 [facility] [place] [address] [facility] [id number] [place] [address] Sep, Routine child health exam V20.2 ; Dietary counseling and surveillance V65.3 ; Exercise counseling V65.41 ; Hematochezia 578.1 ; High risk sexual behavior V69.2 ; ADHD (attention deficit hyperactivity disorder) 314.01 ; GARDASIL (HPV) DX V04.89 ; HEP A (PED/ADOL 2-DOSE) DX V05.3 ; MENINGOCOCCAL DX V03.89 and TDAP DX V06.1 IMMUNIZATIONS No Known Immunizations SOCIAL HISTORY Never Assessed REASON FOR VISIT [facility] PLAN OF CARE VITAL SIGNS MEDICATIONS Unknown Medications RESULTS No Results PROCEDURES No Known procedures INSTRUCTIONS MEDICATIONS ADMINISTERED No Known Medications MEDICAL (GENERAL) HISTORY Type Description Date Medical History bulemia nervosa Medical History depression Medical History acid reflux Medical History ulcers Medical History concussion x 2 Medical History broken nose x 2 Medical History broken left wrist Medical History seasonal allergies Surgical History appendectomy Surgical History colonoscopy
--- OUTSIDE RECORDS SUMMARY | 2017-08-09 16:28 | XMS REPORT ---
Author Author TRACIE SAUL Organization [facility] Address [address] [place] [address] Care Team Providers Care Inspecting Engineer Name Role Phone YANETHDELLTRACIE Unavailable PROBLEMS Type Condition ICD9-CM Code [id number] Code Onset Dates Condition Status SNOMED Code Problem Cannabis dependence with or without physiological dependence F12.20 Active 75207214 Problem Generalized anxiety disorder F41.1 Active 22085619 Problem Episodic mood disorder F39 Active 41723001 ALLERGIES No Information ENCOUNTERS Encounter Location Date Diagnosis [facility] [address] [place] [address] Dec, Cannabis dependence with or without physiological dependence F12.20 [facility] [address] [place] [address] Nov, Cannabis dependence with or without physiological dependence F12.20 [facility] [address] [place] [address] Nov, Cannabis dependence with or without physiological dependence F12.20 [facility] [address] [place] [address] Nov, [facility] [id number] [place] [address] Nov, Generalized anxiety disorder F41.1 and Episodic mood disorder F39 [facility] [address] [place] [address] Nov, Cannabis dependence with or without physiological dependence F12.20 [facility] [id number] [address] Oct, [facility] [id number] [place] [address] Oct, Generalized anxiety disorder F41.1 and Episodic mood disorder F39 [facility] [address] [place] [address] Oct, [facility] [address] [facility] [id number] [place] [address] Oct, Uses oral contraception V25.41 and Screen for STD (sexually transmitted disease) V74.5 [facility] [address] [facility] [id number] [place] [address] Sep, Routine child health exam V20.2 ; Dietary counseling and surveillance V65.3 ; Exercise counseling V65.41 ; Hematochezia 578.1 ; High risk sexual behavior V69.2 ; ADHD (attention deficit hyperactivity disorder) 314.01 ; GARDASIL (HPV) DX V04.89 ; HEP A (PED/ADOL 2-DOSE) DX V05.3 ; MENINGOCOCCAL DX V03.89 and TDAP DX V06.1 IMMUNIZATIONS No Known Immunizations SOCIAL HISTORY Never Assessed REASON FOR VISIT [facility] Assessment PLAN OF CARE Activity Details Follow Up 2 - 3 Days Reason: VITAL SIGNS MEDICATIONS Unknown Medications RESULTS No Results PROCEDURES Procedure Date Ordered Result Body Site Psychotherapy, patient &/family, 60 minutes, new patient Nov 24, 2016 INSTRUCTIONS MEDICATIONS ADMINISTERED No Known Medications MEDICAL (GENERAL) HISTORY Type Description Date Medical History bulemia nervosa Medical History depression Medical History acid reflux Medical History ulcers Medical History concussion x 2 Medical History broken nose x 2 Medical History broken left wrist Medical History seasonal allergies Surgical History appendectomy Surgical History colonoscopy
--- OUTSIDE RECORDS SUMMARY | 2017-08-09 16:28 | XMS REPORT ---
Author Author TRACIE SAUL Organization [facility] Address [address] [place] [address] Care Team Providers Care School Psychology Specialist Name Role Phone YANETHDELLTRACIE Unavailable PROBLEMS Type Condition ICD9-CM Code LHB94-MS Code Onset Dates Condition Status SNOMED Code Problem Cannabis dependence with or without physiological dependence F12.20 Active 30552130 Problem Generalized anxiety disorder F41.1 Active 10835582 Problem Episodic mood disorder F39 Active 36857756 ALLERGIES No Information ENCOUNTERS Encounter Location Date Diagnosis [facility] [address] [place] [address] Dec, Cannabis dependence with or without physiological dependence F12.20 [facility] [address] [place] [address] Nov, Cannabis dependence with or without physiological dependence F12.20 [facility] [address] [place] [address] Nov, Cannabis dependence with or without physiological dependence F12.20 [facility] [address] [place] [address] Nov, [facility] [id number] [place] [address] Nov, Generalized anxiety disorder F41.1 and Episodic mood disorder F39 [facility] [address] [place] [address] Nov, Cannabis dependence with or without physiological dependence F12.20 [facility] [address], [place] [address] Oct, [facility] [id number] [place] [address] Oct, Generalized anxiety disorder F41.1 and Episodic mood disorder F39 [facility] [id number] [place] [address] Oct, [facility] [address] [facility] [id number] [place] [address] Oct, Uses oral contraception V25.41 and Screen for STD (sexually transmitted disease) V74.5 [facility] [address] [facility] [id number] [place] [address] Sep, Routine child health exam V20.2 ; [...] Psychotherapy, patient &/family, 30 minutes, established patient Nov 25, 2016 INSTRUCTIONS MEDICATIONS ADMINISTERED No Known Medications MEDICAL (GENERAL) HISTORY Type Description Date Medical History bulemia nervosa Medical History depression Medical History acid reflux Medical History ulcers Medical History concussion x 2 Medical History broken nose x 2 Medical History broken left wrist Medical History seasonal allergies Surgical History appendectomy Surgical History colonoscopy
--- OUTSIDE RECORDS SUMMARY | 2017-08-09 16:28 | XMS REPORT ---
Author Author SANDEE CRISTOBAL [facility] Address [address] [place] [address] Care Team Providers Care Arbitrator Name Role Phone SANDEE CRISTOBAL Unavailable PROBLEMS Type Condition ICD9-CM Code [id number] Code Onset Dates Condition Status SNOMED Code Problem Cannabis dependence with or without physiological dependence F12.20 Active 03236399 Problem Generalized anxiety disorder F41.1 Active 36594834 Problem Episodic mood disorder F39 Active 84681231 ALLERGIES No Information ENCOUNTERS Encounter Location Date Diagnosis [facility] [address] [place] [address] Dec, Cannabis dependence with or without physiological dependence F12.20 [facility] [address] [place] [address] Nov, Cannabis dependence with or without physiological dependence F12.20 [facility] [address] [place] [address] Nov, Cannabis dependence with or without physiological dependence F12.20 [facility] [address] [place] [address] Nov, [facility] [id number] [place] [address] Nov, Generalized anxiety disorder F41.1 and Episodic mood disorder F39 [facility] [address] [place] [address] Nov, Cannabis dependence with or without physiological dependence F12.20 [facility] [address], [place] [address] Oct, [facility] [id number] [place] [address] Oct, Generalized anxiety disorder F41.1 and Episodic mood disorder F39 [facility] [id number] [place] [address] Oct, [facility] [address] [facility] [id number] [place] [address] Oct, Uses oral contraception V25.41 and Screen for STD (sexually transmitted disease) V74.5 [facility] [address] [facility] [id number] [place] [address] Sep, Routine child health exam V20.2 ; Dietary counseling and surveillance V65.3 ; Exercise counseling V65.41 ; Hematochezia 578.1 ; High risk sexual behavior V69.2 ; ADHD (attention deficit hyperactivity disorder) 314.01 ; GARDASIL (HPV) DX V04.89 ; HEP A (PED/ADOL 2-DOSE) DX V05.3 ; MENINGOCOCCAL DX V03.89 and TDAP DX V06.1 IMMUNIZATIONS No Known Immunizations SOCIAL HISTORY Never Assessed REASON FOR VISIT f/u PLAN OF CARE Activity Details Follow Up 3 Weeks Reason: F/U VITAL SIGNS MEDICATIONS Unknown Medications RESULTS No Results PROCEDURES Procedure Date Ordered Result Body Site Psychotherapy, patient &/family, 45 minutes, established patient Nov 25, 2016 INSTRUCTIONS [...]
--- OUTSIDE RECORDS SUMMARY | 2017-08-09 16:29 | XMS REPORT | Continuity of Care Document ---
Author Author [facility] Organization [facility] Address Unknown Phone Unavailable Allergies Active Description Code Type Severity Reaction Onset Reported/Identified Relationship to Patient Clinical Status Yes HYDROCODONE-ACETAMINOPHEN MODERATE ITCHING Yes PENICILLINS UNKNOWN UNKNOWN Yes hydrocodone [id number] Drug Allergy Mild N/A 02/05/2011 Yes penicillin [id number] Drug Allergy Unknown N/A 11/26/2014 Yes hydrocodone [id number] Drug Allergy Moderate HIVES 09/16/2015 Yes penicillin [id number] Drug Allergy Mild RASH 09/16/2015 Yes hydrocodone hydrocodone Drug Allergy Unknown UNKNOWN 01/31/2016 Yes Penicillins Penicillins Drug Allergy Unknown UNKNOWN 01/31/2016 Medications Medication Packaging Start Date Stop Date Route Dosage Sig CEFDINIR CAP 300 MG (OMNICEF) MG 12/29/2016 ONCE&0503 Problems Date Dx Coded Attending Type Code Diagnosis Diagnosed By 02/07/2011 Ot 850.0 CONCUSSION W/ O COMA 02/07/2011 Ot E000.8 OTHER EXTERNAL CAUSE STATUS 02/07/2011 Ot E007.6 ACTIVITIES INVOLVING BASKETBALL 02/07/2011 Ot E849.4 ACCID IN RECREATION AREA 02/07/2011 Ot E886.0 FALL IN SPORTS 06/08/2012 Ot 530.11 REFLUX ESOPHAGITIS 06/08/2012 Ot 535.40 OTH SPECIFIED GASTRITIS,W/O MENTION OF H 12/24/2012 GABRIELA MUÑIZ, MELQUIADES Lara Ot 599.0 URIN TRACT INFECTION NOS 12/24/2012 MELQUIADES OCHOA MD Ot 787.01 NAUSEA WITH VOMITING 03/16/2013 RUTH MUÑIZ, CHARLES Willis Ot 305.20 CANNABIS ABUSE-UNSPEC 03/16/2013 CHARLES MIRANDA MD Ot 599.0 URIN TRACT INFECTION NOS 03/16/2013 CHARLES MIRANDA MD Ot 881.02 OPEN WOUND OF WRIST 03/16/2013 CHARLES MIRANDA MD Ot E000.8 OTHER EXTERNAL CAUSE STATUS 03/16/2013 RUTH MUÑIZ, CHARLES Willis Ot E849.0 ACCIDENT IN HOME 03/16/2013 RUTH MUÑIZ, CHARLES Willis Ot E956 KYMBERLY/SELF-INJ BY CUT INST 02/05/2014 Ot V72.84 02/05/2014 AYDEN ESTEBAN SANDRA S Ot 276.51 DEHYDRATION 02/05/2014 KERRITARA ESTEBAN SANDRA S Ot 558.9 NONINF GASTROENTERIT NEC 02/05/2014 Ot V72.84 04/05/2014 DADA MUÑIZ, JAVI Leslie Ot 780.2 SYNCOPE AND COLLAPSE 05/06/2014 Ot V72.84 05/06/2014 SLOANE ESTEBAN LIGIA Leslie Ot 305.20 CANNABIS ABUSE-UNSPEC 05/06/2014 SLOANE ESTEBAN LIGIA Leslie Ot 881.02 OPEN WOUND OF WRIST 05/06/2014 LIGIA ANTON DO Ot E000.8 OTHER EXTERNAL CAUSE STATUS 05/06/2014 LIGIA ANTON DO Ot E849.0 ACCIDENT IN HOME 05/06/2014 SLOANE ESTEBAN LIGIA Leslie Ot E956 KYMBERLY/SELF-INJ BY CUT INST 05/06/2014 SLOANE ESTEBAN LIGIA Leslie Ot V62.84 SUICIDAL IDEATION 11/26/2014 Ot V72.84 11/26/2014 SLOANE ESTEBAN LIGIA Leslie Ot 462 ACUTE PHARYNGITIS 11/26/2014 LIGIA ANTON DO Ot 599.0 URIN TRACT INFECTION NOS 11/26/2014 SLOANE ESTEBAN LIGIA Leslie Ot 782.1 NONSPECIF SKIN ERUPT NEC 11/26/2014 SLOANE ESTEBAN LIGIA Leslie Ot J02.9 ACUTE PHARYNGITIS, UNSPECIFIED 11/26/2014 SLOANE ESTEBAN LIGIA Leslie Ot N39.0 URINARY TRACT INFECTION, SITE NOT SPECIF 11/26/2014 SLOANE ESTEBAN LIGIA Leslie Ot R21 RASH AND OTHER NONSPECIFIC SKIN [...] PEPTIC ULCER DISEASE 03/19/2015 Ot V72.84 03/19/2015 MONIQUE SOLITARIO MD Ot V72.84 09/13/2015 Ot V72.84 EXAM PRE- OPERATIVE NOS 09/13/2015 MONIQUE SOLITARIO MD Ot V72.84 EXAM PRE-OPERATIVE NOS 09/16/2015 Ot V72.84 EXAM PRE- OPERATIVE NOS 09/16/2015 MONIQUE SOLITARIO MD Ot V72.84 EXAM PRE-OPERATIVE NOS 09/16/2015 BRIDGER BLUE MD N Ot N39.0 URINARY TRACT INFECTION, SITE NOT SPECIF 09/16/2015 BRIDGER BLUE MD N Ot N76.1 SUBACUTE AND CHRONIC VAGINITIS 09/16/2015 ABDOUL BLUE MDIN N Ot 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 09/16/2015 SU MUÑIZ BRIGDER N Ot Z11.2 ENCOUNTER FOR SCREENING FOR OTHER BACTER 09/17/2015 BRIDGER BLUE MD N Ot N39.0 URINARY TRACT INFECTION, SITE NOT SPECIF 09/17/2015 SU MUÑIZ BRIDGER N Ot 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.1 SUBACUTE AND CHRONIC VAGINITIS 09/17/2015 ABDOUL BLUE MDIN N Ot 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 09/17/2015 SU MUÑIZ BRIDGER N Ot Z11.2 ENCOUNTER FOR SCREENING FOR OTHER BACTER 08/10/2016 PRUDENCIO LU N898 Other specified noninflammatory disorders of vagina 08/10/2016 PRUDENCIO LU Z8619 Personal history of other infectious and parasitic diseases 12/29/2016 REINALDO BOBO 462 ACUTE PHARYNGITIS 12/29/2016 REINALDO BOBO J02.9 ACUTE PHARYNGITIS, UNSPECIFIED 04/29/2017 Ot V72.84 EXAM PRE- OPERATIVE NOS 04/29/2017 MONIQUE SOLITARIO MD Ot V72.84 EXAM PRE-OPERATIVE NOS 04/29/2017 SU MUÑIZ BRIDGER N Ot 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 04/29/2017 BRIDGER BLUE MD Ot Z01.818 ENCOUNTER FOR OTHER PREPROCEDURAL EXAMIN 04/29/2017 BRAYAN PEREZ Ot E86.9 VOLUME DEPLETION, UNSPECIFIED 04/29/2017 BRAYAN PEREZ Ot F12.10 CANNABIS ABUSE, UNCOMPLICATED 04/29/2017 BRAYAN PEREZ Ot F32.9 MAJOR DEPRESSIVE DISORDER, SINGLE EPISOD 04/29/2017 BRAYAN PEREZ Ot O20.0 THREATENED 04/29/2017 BRAYAN PEREZ Ot O23.40 UNSP INFECTION OF URINARY TRACT IN PREGN 04/29/2017 BRAYAN PEREZ Ot O99.280 ENDO, NUTRITIONAL AND METAB DISEASES COM 04/29/2017 BRAYAN PEREZ Ot O99.320 DRUG USE COMPLICATING , UNSPECI 04/29/2017 BRAYAN PEREZ Ot O99.340 OTH MENTAL DISORDERS COMPLICATING PREGNA 04/29/2017 BRAYAN PEREZ Ot O99.89 OTH DISEASES AND CONDITIONS COMPL PREG/C 04/29/2017 BRAYAN PEREZ Ot Z3A.00 WEEKS OF GESTATION OF NOT SPEC 04/29/2017 BRAYAN PEREZ Ot Z87.01 PERSONAL HISTORY OF PNEUMONIA (RECURRENT 04/29/2017 BRAYAN PEREZ Ot Z87.19 PERSONAL HISTORY OF OTHER DISEASES OF TH 04/29/2017 BRAYAN PEREZ Ot Z88.0 ALLERGY STATUS TO PENICILLIN 04/29/2017 BRAYAN PEREZ Ot Z88.5 ALLERGY STATUS TO NARCOTIC AGENT STATUS 04/29/2017 BRAYAN PEREZ Ot Z91.5 PERSONAL HISTORY OF SELF-HARM 04/29/2017 Ot V72.84 EXAM PRE- OPERATIVE NOS 04/29/2017 KASSI MUÑIZ, MONIQUE Payne Ot V72.84 EXAM PRE-OPERATIVE NOS 04/29/2017 SU MUÑIZ, BRIDGER Mike Ot 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 04/29/2017 BRIDGER BLUE MD Ot Z01.818 ENCOUNTER FOR OTHER PREPROCEDURAL EXAMIN 05/03/2017 BRAYAN PEREZ Ot E86.9 VOLUME DEPLETION, UNSPECIFIED 05/03/2017 BRAYAN PEREZ Ot F12.10 CANNABIS ABUSE, UNCOMPLICATED 05/03/2017 BRAYAN PEREZ Ot F32.9 MAJOR DEPRESSIVE DISORDER, SINGLE EPISOD 05/03/2017 BRAYAN PEREZ Ot O20.0 THREATENED 05/03/2017 BRAYAN PEREZ Ot O23.40 UNSP INFECTION OF URINARY TRACT IN PREGN 05/03/2017 BRAYAN PEREZ Ot O99.280 ENDO, NUTRITIONAL AND METAB DISEASES COM 05/03/2017 BRAYAN PEREZ Ot O99.320 DRUG USE COMPLICATING , UNSPECI 05/03/2017 BRAYAN PEREZ Ot O99.340 OTH MENTAL DISORDERS COMPLICATING PREGNA 05/03/2017 BRAYAN PEREZ Ot O99.89 OTH DISEASES AND CONDITIONS COMPL PREG/C 05/03/2017 BRAYAN PEREZ Ot Z3A.00 WEEKS OF GESTATION OF NOT SPEC 05/03/2017 BRAYAN PEREZ Ot Z87.01 PERSONAL HISTORY OF PNEUMONIA (RECURRENT 05/03/2017 BRAYAN PEREZ Ot Z87.19 PERSONAL HISTORY OF OTHER DISEASES OF TH 05/03/2017 BRAYAN PEREZ Ot Z88.0 ALLERGY STATUS TO PENICILLIN 05/03/2017 BRAYAN PEREZ Ot Z88.5 ALLERGY STATUS TO NARCOTIC AGENT STATUS 05/03/2017 BRAYAN PEREZ Ot Z91.5 PERSONAL HISTORY OF SELF-HARM 05/04/2017 BRAYAN PEREZ Ot O20.0 THREATENED 05/06/2017 LIGIA KING MD Ot O03.9 COMPLETE OR UNSP SPONTANEOUS [place] 05/07/2017 BRAYAN PEREZ Ot O20.0 THREATENED 05/27/2017 LIGIA KING MD Ot O03.9 COMPLETE OR UNSP SPONTANEOUS [place] Procedures There is no data. <section xmlns="urn:hl7-org:v3" xmlns:xsi="http:// www.w3.org/2001/XMLSchema-instance"> <templateId root= "[id number]" /> <templateId root= ".[id number]" /> <code codeSystemName="ZOË" codeSystem= "[id number]" code="44333-7" displayName="Results" /> <title>Results< /title> <text> <table> <thead> <tr> <th>Test</th> <th>Result</th> <th>Range</th> </tr> </thead> < tbody> <tr> < colspan="10">URINE CULTURE - 01/31/16 19:18</th > </tr> [...] <td>UR PH</td> <td>5.5 </td> <td>5.0-7.0</td> </tr> <tr> < colspan="10">UA MICROSCOPIC - 01/31/16 19:31</th> </tr> <tr> <td>UA BACTERIA</td> <td>1+ </td> <td>NEGATIVE</td> </tr> <tr> <td>UA EPITHELIAL CELLS</td> <td>3+ epi/hpf</td> <td>0 - 1+</td> </tr> <tr> <td>UA MUCUS</td> <td>3+ </td> <td>NEG TO 1+</td> </tr> <tr> < td>UA RBC</td> <td>3-5 rbc/hpf</td> <td>0 - 3</td> </tr > <tr> <td>UA VOLUME FOR EXAM</td> <td>12.0 mL</td> <td>(12mL STD)</td> </tr> <tr> <td>UA WBC</td> <td>20-50 wbc/hpf</td> <td>0 - 5</td> </tr> <tr> < colspan="10">UR TEST - 01/31/16 19:31</th> </tr> <tr> <td>UR TEST</td> <td>NEGATIVE </td> <td>NEGATIVE</td> </tr> <tr> < colspan="10">UR DRUGS OF ABUSE SCREEN - 01/31/16 [...] IONIZED</td> <td>4.7 mg /dL</td> <td>4.5-5.3</td> </tr> <tr> < colspan ="10">URINALYSIS, ROUTINE - 02/24/16 02:14</th> </tr> [...] PH</td> <td>5.5 </td> <td> 5.0-7.0</td> </tr> <tr> < colspan="10">UA MICROSCOPIC - 04/09/16 08:34</th> </tr> <tr> [...] TEST</td> <td>NEGATIVE </td> <td>NEGATIVE</td > </tr> <tr> < colspan="10">UR DRUGS OF ABUSE SCREEN - 04/09/16 [...] 200 ng/mL) < /td> <td>NEGATIVE</td> </tr> <tr> < colspan= "10">CBC W/DIFF - 04/09/16 08:53</th> </tr> [...] CONJUGATED</td> <td>0.3 mg/dL</td > <td>0.0-0.3</td> </tr> <tr> < colspan="10"> MAGNESIUM - 04/09/16 08:53</th> </tr> <tr> [...] <tr> <td>PHOSPHORUS</td> <td>3.5 mg/dL</td> <td>2.5-4.9</td> </tr> <tr> <th colspan="10">MAGNESIUM - 04/10/16 05:18</th> </tr> <tr> < td>MAGNESIUM</td> <td>2.1 mg/dL</td> <td>1.8-2.4</td> < /tr> <tr> < colspan="10">URINE (CTS IF INDICATED) - 08/10/16 15:15</th> </tr> <tr> <td>GLUCOSE </td> <td> norm </td> <td>NORMAL:NEGATIVE</td> </tr> <tr> < td>WBC </td> <td>5-7 </td> <td>NRG</td> </tr> < tr> <td>URINE(CTSIFINDICATED)</td> <td> </td> <td>NRG </td> </tr> <tr> <td> URINE COLLECT</td> <td> UNKNOWN </td> <td>NRG</td> </tr> <tr> <td> COLOR </td> <td>STRAW </td> <td>NORMAL:YELLOW</td> </tr> <tr> <td> CLARITY</td> <td>CLOUDY </td> <td> NORMAL:CLEAR</td> </tr> <tr> <td> SP GRAVITY</td> <td>1.010 </td> <td>NRG</td> </tr> <tr> <td> PH</td> <td>8 </td> <td>NORMAL:5 - 8</td> </tr> <tr> <td> LEUKOESTERAS</td> <td>25 [place]/uL </td> <td> NORMAL:NEGATIVE</td> </tr> <tr> <td> NITRITE</td> <td>neg </td> <td>NORMAL:NEGATIVE</td> </tr> <tr> <td> PROTEIN</td> <td>neg </td> <td>NORMAL:NEGATIVE</td > </tr> <tr> <td> KETONES</td> <td>neg </td> <td>NORMAL:NEGATIVE</td> </tr> <tr> <td> UROBILINOGEN</td> <td>norm </td> <td>NORMAL:NEGATIVE</td> </tr> <tr> <td> BILIRUBIN</td> <td>neg </td> <td>NORMAL:NEGATIVE</td> </tr> <tr> <td> BLOOD</td> <td>neg </td> <td>NORMAL:NEGATIVE</td> </tr> <tr > <td> MICROSCOPIC</td> <td>SEE BELOW </td> <td>NRG</ td> </tr> <tr> <td> EPITHELIAL</td> <td>>15 SQ EPI </td> <td>NRG</td> </tr> <tr> <td> BACTERIA</td> <td>MODERA </td> <td>NRG</td> </tr> <tr> <td> CULTURE</td> <td>NOT INDICATED </td> <td >NRG</td> </tr> <tr> <td> CRYSTALS</td> <td>SEE BELOW </td> <td>NRG</td> </tr> <tr> <td> AMORPHOUS</td> <td>FEW </td> <td>NORMAL: NONE SEEN</td> </tr> <tr> <th colspan="10">[place] - 02/26/17 17:05</th> </tr> <tr> <td>Clue Cells</td> <td>Not Observed < /td> <td>Not Observed</td> </tr> <tr> <td> Trichomonas</td> <td>Not Observed </td> <td>Not Observed</td> </tr> <tr> <td>Yeast</td> <td>Not Observed </td > <td>Not Observed</td> </tr> <tr> < colspan= "10">Chlamydia/GC Amplification - 02/26/17 17:05</th> </tr> <tr> <td>CHLAMYDIA TRACHOMATIS, MELISSA</td> <td>NEGATIVE </td> <td>NEGATIVE</td> </tr> <tr> <td>NEISSERIA GONORRHOEAE , MELISSA</td> <td>NEGATIVE </td> <td>NEGATIVE</td> </tr> <tr> <th colspan="10">Chlamydia/GC Amplification - 02/26/17 17: 05</th> </tr> <tr> <td>Chlamydia trachomatis, MELISSA</td> <td>Negative </td> <td>Negative</td> </tr> <tr> <td>Neisseria gonorrhoeae, MELISSA</td> <td>Negative </td> <td>Negative</td> </tr> <tr> < colspan="10">Ova + Parasite Exam - 03/03/17 14:23</th> </tr> <tr> <td>OVA + PARASITE EXAM</td> <td>FINAL REPORT </td> <td /> </tr> <tr> <td>RESULT 1</td> <td>NO OVA, CYSTS, OR PARASITES SEEN. </td> <td /> </tr> <tr> < colspan="10">Complete urinalysis with reflex to culture - 04/29/17 14:52</th> </tr> <tr> <td>Urine color determination</td> <td >YELLOW </td> <td>NRG</td> </tr> <tr> <td>Urine clarity determination</td> <td>CLEAR </td> <td>NRG</td> </tr> <tr> <td>Urine pH measurement by test strip</td> <td>6 </td> <td>5-9</td> </tr> <tr> <td> Specific gravity of urine by test strip</td> <td>1.020 </td> < td>1.016-1.022</td> </tr> <tr> <td>Urine protein assay by test strip, semi-quantitative</td> <td>1+ </td> <td> NEGATIVE</td> </tr> <tr> <td>Urine glucose detection by automated test strip</td> <td>NEGATIVE </td> <td>NEGATIVE</td > </tr> <tr> <td>Erythrocytes detection in urine sediment by light microscopy</td> <td>3+ </td> <td>NEGATIVE</ td> </tr> <tr> <td>Urine ketones detection by automated test strip</td> <td>2+ </td> <td>NEGATIVE</td> </tr> <tr> <td>Urine nitrite detection by test strip</td> <td> NEGATIVE </td> <td>NEGATIVE</td> </tr> <tr> <td> Urine total bilirubin detection by test strip</td> <td>NEGATIVE </td> <td>NEGATIVE</td> </tr> <tr> <td>Urine urobilinogen measurement by automated test strip (mass/volume)</td> <td >NORMAL </td> <td>NORMAL</td> </tr> <tr> <td> Urine leukocyte esterase detection by dipstick</td> <td>1+ </td> <td>NEGATIVE</td> </tr> <tr> <td>Automated urine sediment erythrocyte count by microscopy (number/high power field)</td> <td> [HPF]</td> <td>NRG</td> </tr> <tr> <td> Automated urine sediment leukocyte count by microscopy (number/high power field) </td> <td> [HPF]</td> <td>NRG</td> </tr> <tr> <td>Bacteria detection in urine sediment by light microscopy</td> <td>FEW </td> <td>NRG</td> </tr> <tr> <td> Squamous epithelial cells detection in urine sediment by light microscopy</td> <td>25-50 </td> <td>NRG</td> </tr> <tr> <td>Crystals detection in urine sediment by light microscopy</td> <td >NONE </td> <td>NRG</td> </tr> <tr> <td>Casts detection in urine sediment by light microscopy</td> <td>NONE </td> <td>NRG</td> </tr> <tr> <td>Mucus detection in urine sediment by light microscopy</td> <td>MODERATE </td> <td >NRG</td> </tr> <tr> <td>Complete urinalysis with reflex to culture</td> <td>NO </td> <td>NRG</td> </tr> <tr> <th colspan="10">Complete blood count (CBC) with automated white blood cell (WBC) differential - 04/29/17 15:20</th> </tr> <tr> <td>Blood leukocytes automated count (number/volume)</td> <td> 10.4 10*3/uL</td> <td>4.3-11.0</td> </tr> <tr> < td>Blood erythrocytes automated count (number/volume)</td> <td>4.34 10* 6/uL</td> <td>4.35-5.85</td> </tr> <tr> <td> Venous blood hemoglobin measurement (mass/volume)</td> <td>12.9 g/dL</ td> <td>11.5-16.0</td> </tr> <tr> <td>Blood hematocrit (volume fraction)</td> <td>38 %</td> <td>35-52< /td> </tr> <tr> <td>Automated erythrocyte mean corpuscular volume</td> <td>86 [foz_us]</td> <td>80-99</td> </tr> <tr> <td>Automated erythrocyte mean corpuscular hemoglobin (mass per erythrocyte)</td> <td>30 pg</td> <td>25- 34</td> </tr> <tr> <td>Automated erythrocyte mean corpuscular hemoglobin concentration measurement (mass/volume)</td> <td >34 g/dL</td> <td>32-36</td> </tr> <tr> <td> Automated erythrocyte distribution width ratio</td> <td>12.0 %</td > <td>10.0-14.5</td> </tr> <tr> <td>Automated blood platelet count [...] <td> 0.0 10*3/uL</td> <td>0.0-0.1</td> </tr> <tr> < th colspan="10">Comprehensive metabolic panel - 04/29/17 15:20</th> </tr [...] <td>Lipase</td> <td>23 U/L</td> <td>8 -78</td> </tr> <tr> <th colspan="10">Serum or plasma choriogonadotropin measurement (units/volume) - 04/29/17 15:20</th> </tr > <tr> <td>Serum or plasma choriogonadotropin measurement (units /volume)</td> <td>402 m[iU]/mL</td> <td><5</td> </tr > <tr> <th colspan="10">Serum or plasma choriogonadotropin measurement (units/volume) - 05/01/17 10:37</th> </tr> <tr> <td>Serum or plasma choriogonadotropin measurement (units/volume)</td> <td>149 m[iU]/mL</td> <td><5</td> </tr> <tr> < colspan="10">Influenza virus A and B antigen detection - 05/05/17 10: 32</th> </tr> <tr> <td>FLU RESULT</td> <td> NEGATIVE FOR INFLUENZA A AND B ANTIGENS BY IA </td> <td>NRG</td> </tr> <tr> <th colspan="10">Serum or plasma choriogonadotropin measurement (units/volume) - 05/05/17 10:32</th> </tr > <tr> <td>Serum or plasma choriogonadotropin measurement (units /volume)</td> <td>36 m[iU]/mL</td> <td><5</td> </tr > </tbody> </table> </text> <entry> <organizer moodCode="EVN" classCode="BATTERY"> <templateId root="[id number]" /> <id nullFlavor="NA" /> <code codeSystem="local" code="UC" displayName= "URINE CULTURE" /> <statusCode code="completed" /> <component> <observation moodCode="EVN" classCode="OBS"> <templateId root= "[id number]" /> <id nullFlavor="NA" /> < code codeSystem="local" code="MB" displayName="Microbiology" /> < statusCode code="completed" /> <effectiveTime value="[id number]" /> <value xsi:type="ST" value="<pre><b>URINE CULTURE</b> See BelowURINE CULTURE(F) Franko Date/Time: 01/31/2016 19:18 Luly Date/Time: 2016 08:28SOURCE: URINESPEC DESC: CLEAN CATCHTREATMENT OF ASYMPTOMATIC BACTERIURIA IS NOT USUALLYCLINICALLY INDICATED.MIXED GRAM POSITIVE?MIXED GRAM POSITIVE BACTERIAGROUP B STREP? .INCLUDING GROUP B STREPTOCOCCUSCHI [facility] [place] [address]</pre>" /> <referenceRange> <observationRange> <text /> </observationRange> </referenceRange> </observation> </component> </organizer> </entry> <entry> < organizer moodCode="EVN" classCode="BATTERY"> <templateId root= "[id number]..4.1" /> <id nullFlavor="NA" /> <code codeSystem="local" code="UA" displayName="URINALYSIS, ROUTINE" /> < statusCode code="completed" /> <component> <observation moodCode= "EVN" classCode="OBS"> <templateId root="[id number] " /> <id nullFlavor="NA" /> <code codeSystem="local" code= "LEUESU" displayName="UA LEUKOCYTE ESTERASE DIPSTICK" /> <statusCode code="completed" /> <effectiveTime value="" /> < value unit="" xsi:type="PQ" value="TRACE" /> <referenceRange> <observationRange> <text>NEGATIVE</text> </ observationRange> </referenceRange> </observation> </ component> <component> <observation moodCode="EVN" classCode="OBS"> <templateId root="[id number]" /> <id nullFlavor="NA" /> <code codeSystem="local" code="NITRIU" displayName= "UA NITRITE DIPSTICK" /> <statusCode code="completed" /> < effectiveTime value="" /> <value unit="" xsi:type="PQ" value="NEGATIVE" /> <referenceRange> <observationRange> <text>NEGATIVE</text> </observationRange> </ referenceRange> </observation> </component> <component> <observation moodCode="EVN" classCode="OBS"> <templateId root= "[id number]" /> <id nullFlavor="NA" /> < code codeSystem="local" code="PROTEIU" displayName="UA PROTEIN DIPSTICK" /> <statusCode code="completed" /> <effectiveTime value= "" /> <value unit="" xsi:type="PQ" value="NEGATIVE" /> <referenceRange> <observationRange> <text>NEGATIVE </text> </observationRange> </referenceRange> </ observation> </component> <component> <observation moodCode= "EVN" classCode="OBS"> <templateId root="[id number]..4.2 " /> <id nullFlavor="NA" /> <code codeSystem="local" code= "DGLUU" displayName="UA GLUCOSE DIPSTICK" /> <statusCode code= "completed" /> <effectiveTime value="" /> <value unit="" xsi:type="PQ" value="NEGATIVE" /> <referenceRange> < observationRange> <text>NEGATIVE</text> </ observationRange> </referenceRange> </observation> </ component> <component> <observation moodCode="EVN" classCode="OBS"> <templateId root="[id number]" /> <id nullFlavor="NA" /> <code codeSystem="local" code="KETONU" displayName= "UA KETONE DIPSTICK" /> <statusCode code="completed" /> < effectiveTime value="" /> <value unit="" xsi:type="PQ" value="NEGATIVE" /> <referenceRange> <observationRange> <text>NEGATIVE</text> </observationRange> </ referenceRange> </observation> </component> <component> <observation moodCode="EVN" classCode="OBS"> <templateId root= "[id number]..4.2" /> <id nullFlavor="NA" /> < code codeSystem="local" code="UROBILU" displayName="UA UROBILINOGEN DIPSTICK" / > <statusCode code="completed" /> <effectiveTime value= "" /> <value unit="" xsi:type="PQ" value="NORMAL" /> <referenceRange> <observationRange> <text>NORMAL</ text> </observationRange> </referenceRange> </ observation> </component> <component> <observation moodCode= "EVN" classCode="OBS"> <templateId root="[id number]...4.2 " /> <id nullFlavor="NA" /> <code codeSystem="local" code= "BILU" displayName="UA BILIRUBIN DIPSTICK" /> <statusCode code= "completed" /> <effectiveTime value="" /> <value unit="" xsi:type="PQ" value="NEGATIVE" /> <referenceRange> < observationRange> <text>NEGATIVE</text> </ observationRange> </referenceRange> </observation> </ component> <component> <observation moodCode="EVN" classCode="OBS"> <templateId root="[id number]..22.4.2" /> <id nullFlavor="NA" /> <code codeSystem="local" code="BREANNA" displayName="UA BLOOD DIPSTICK" /> <statusCode code="completed" /> < effectiveTime value="" /> <value unit="" xsi:type="PQ" value="1+" /> <interpretationCode codeSystem="local" code="*" /> <referenceRange> <observationRange> <text>NEGATIVE</ text> </observationRange> </referenceRange> </ observation> </component> <component> <observation moodCode= "EVN" classCode="OBS"> <templateId root="[id number]..22.4.2 " /> <id nullFlavor="NA" /> <code codeSystem="local" code= "SPGRU" displayName="UA SPECIFIC GRAVITY" /> <statusCode code= "completed" /> <effectiveTime value="" /> <value unit="" xsi:type="PQ" value=">=1.030" /> <interpretationCode codeSystem="local" code="*" /> <referenceRange> < observationRange> <text>1.015-1.025</text> </ observationRange> </referenceRange> </observation> </ component> <component> <observation moodCode="EVN" classCode="OBS"> <templateId root="[id number]" /> <id nullFlavor="NA" /> <code codeSystem="local" code="CLOVER" displayName="UR PH" /> <statusCode code="completed" /> <effectiveTime value= "" /> <value unit="" xsi:type="PQ" value="5.5" /> <referenceRange> <observationRange> <text>5.0-7.0</text > </observationRange> </referenceRange> </observation > </component> </organizer> </entry> <entry> <organizer moodCode= "EVN" classCode="BATTERY"> <templateId root="216.840.1.193225.10..22.4.1 " /> <id nullFlavor="NA" /> <code codeSystem="local" code="UAMICRO" displayName="UA MICROSCOPIC" /> <statusCode code="completed" /> < component> <observation moodCode="EVN" classCode="OBS"> < templateId root="16.840.1.361019.10...4.2" /> <id nullFlavor="NA " /> <code codeSystem="local" code="BACU" displayName="UA BACTERIA" /> <statusCode code="completed" /> <effectiveTime value= "" /> <value unit="" xsi:type="PQ" value="1+" /> < interpretationCode codeSystem="local" code="*" /> <referenceRange> <observationRange> <text>NEGATIVE</text> </ observationRange> </referenceRange> </observation> </ component> <component> <observation moodCode="EVN" classCode="OBS"> <templateId root="[id number]" /> <id nullFlavor="NA" /> <code codeSystem="local" code="EPIU" displayName=" UA EPITHELIAL CELLS" /> <statusCode code="completed" /> < effectiveTime value="" /> <value unit="epi/hpf" xsi:type= "PQ" value="3+" /> <interpretationCode codeSystem="local" code="*" /> <referenceRange> <observationRange> <text>0 - 1 +</text> </observationRange> </referenceRange> </ observation> </component> <component> <observation moodCode= "EVN" classCode="OBS"> <templateId root="05.07.840.1.897746.10..4.2 " /> <id nullFlavor="NA" /> <code codeSystem="local" code= "MUCUSU" displayName="UA MUCUS" /> <statusCode code="completed" /> <effectiveTime value="" /> <value unit="" xsi:type= "PQ" value="3+" /> <interpretationCode codeSystem="local" code="*" /> <referenceRange> <observationRange> <text>NEG TO 1+</text> </observationRange> </referenceRange> </ observation> </component> <component> <observation moodCode= "EVN" classCode="OBS"> <templateId root="216.840.1.183164.10.20.22.4.2 " /> <id nullFlavor="NA" /> <code codeSystem="local" code= "RBCU" displayName="UA RBC" /> <statusCode code="completed" /> <effectiveTime value="" /> <value unit="rbc/hpf" xsi:type ="PQ" value="3-5" /> <interpretationCode codeSystem="local" code="*" / > <referenceRange> <observationRange> <text>0 - 3</text> </observationRange> </referenceRange> </ observation> </component> <component> <observation moodCode= "EVN" classCode="OBS"> <templateId root="05.07.840.1.314609.10..4.2 " /> <id nullFlavor="NA" /> <code codeSystem="local" code= "UAVOL" displayName="UA VOLUME FOR EXAM" /> <statusCode code="completed " /> <effectiveTime value="" /> <value unit="mL" xsi:type="PQ" value="12.0" /> <referenceRange> < observationRange> <text>(12mL STD)</text> </ observationRange> </referenceRange> </observation> </ component> <component> <observation moodCode="EVN" classCode="OBS"> <templateId root="05.07.840.1.661531.10.20.22.4.2" /> <id nullFlavor="NA" /> <code codeSystem="local" code="WBCU" displayName=" UA WBC" /> <statusCode code="completed" /> <effectiveTime value="" /> <value unit="wbc/hpf" xsi:type="PQ" value="20- 50" /> <interpretationCode codeSystem="local" code="*" /> < referenceRange> <observationRange> <text>0 - 5</text> </observationRange> </referenceRange> </observation> </component> </organizer> </entry> <entry> <organizer moodCode="EVN " classCode="BATTERY"> <templateId root="216.840.1.403065.10..22.4.1" / > <id nullFlavor="NA" /> <code codeSystem="local" code="PREGU" displayName="UR TEST" /> <statusCode code="completed" /> < component> <observation moodCode="EVN" classCode="OBS"> < templateId root="216.840.1.234108.10..22.4.2" /> <id nullFlavor="NA " /> <code codeSystem="local" code="PREGU" displayName="UR TEST" /> <statusCode code="completed" /> <effectiveTime value= "" /> <value unit="" xsi:type="PQ" value="NEGATIVE" /> <referenceRange> <observationRange> <text>NEGATIVE </text> </observationRange> </referenceRange> </ observation> </component> </organizer> </entry> <entry> <organizer moodCode="EVN" classCode="BATTERY"> <templateId root= "216.840.1.183696.10..22.4.1" /> <id nullFlavor="NA" /> <code codeSystem="local" code="DRUGAB" displayName="UR DRUGS OF ABUSE SCREEN" /> <statusCode code="completed" /> <component> <observation moodCode= "EVN" classCode="OBS"> <templateId root="2.16.840.1.959625.10..22.4.2 " /> <id nullFlavor="NA" /> <code codeSystem="local" code= "AMPHU" displayName="UR AMPHETAMINES SCREEN" /> <statusCode code= "completed" /> <effectiveTime value="" /> <value unit="" xsi:type="PQ" value="NEG (<1000 ng/mL)" /> <referenceRange > <observationRange> <text>NEGATIVE</text> </ observationRange> </referenceRange> </observation> </ component> <component> <observation moodCode="EVN" classCode="OBS"> <templateId root="216.840.1.708532.01.08.22.4.2" /> <id nullFlavor="NA" /> <code codeSystem="local" code="BARBU" displayName= "UR BARBITURATE SCREEN" /> <statusCode code="completed" /> < effectiveTime value="" /> <value unit="" xsi:type="PQ" value="NEG (< 200 ng/mL)" /> <referenceRange> < observationRange> <text>NEGATIVE</text> </ observationRange> </referenceRange> </observation> </ component> <component> <observation moodCode="EVN" classCode="OBS"> <templateId root="2.16.840.1.006734.10..4.2" /> <id nullFlavor="NA" /> <code codeSystem="local" code="DAUCOMMENT" displayName="DRUGS OF ABUSE SCREEN COMMENT" /> <statusCode code= "completed" /> <effectiveTime value="" /> <value unit="" xsi:type="PQ" value="" /> <referenceRange> < observationRange> <text /> </observationRange> </referenceRange> </observation> </component> <component> <observation moodCode="EVN" classCode="OBS"> <templateId root= "216.840.1.647831.10..22.4.2" /> <id nullFlavor="NA" /> < code codeSystem="local" code="OPIU" displayName="UR OPIATES SCREEN" /> <statusCode code="completed" /> <effectiveTime value="" /> <value unit="" xsi:type="PQ" value="NEG (< 300 ng/mL)" /> <referenceRange> <observationRange> <text>NEGATIVE</ text> </observationRange> </referenceRange> </ observation> </component> <component> <observation moodCode= "EVN" classCode="OBS"> <templateId root="05.07.840.1.880498.10...4.2 " /> <id nullFlavor="NA" /> <code codeSystem="local" code= "PCPU" displayName="UR PHENCYCLIDINE (PCP) SCREEN" /> <statusCode code= "completed" /> <effectiveTime value="" /> <value unit="" xsi:type="PQ" value="NEG (< 25 ng/mL)" /> <referenceRange > <observationRange> <text>NEGATIVE</text> </ observationRange> </referenceRange> </observation> </ component> <component> <observation moodCode="EVN" classCode="OBS"> <templateId root="05.07.840.1.115829.10.20.22.4.2" /> <id nullFlavor="NA" /> <code codeSystem="local" code="THCU" displayName=" UR CANNABINOIDS (THC) SCREEN" /> <statusCode code="completed" /> <effectiveTime value="" /> <value unit="" xsi:type="PQ " value="POS (> 50 ng/mL)" /> <interpretationCode codeSystem= "local" code="*" /> <referenceRange> <observationRange> <text>NEGATIVE</text> </observationRange> </ referenceRange> </observation> </component> <component> <observation moodCode="EVN" classCode="OBS"> <templateId root= "2.16.840.1.499775.10.20.22.4.2" /> <id nullFlavor="NA" /> < code codeSystem="local" code="COCAU" displayName="UR COCAINE METABOLITE SCREEN" /> <statusCode code="completed" /> <effectiveTime value= "" /> <value unit="" xsi:type="PQ" value="POS (> 300 ng /mL)" /> <interpretationCode codeSystem="local" code="*" /> < referenceRange> <observationRange> <text>NEGATIVE</text > </observationRange> </referenceRange> </observation > </component> <component> <observation moodCode="EVN" classCode="OBS"> <templateId root="2.16.840.1.719651.10..22.4.2" /> <id nullFlavor="NA" /> <code codeSystem="local" code="METHU" displayName="UR METHADONE SCREEN" /> <statusCode code="completed" /> <effectiveTime value="" /> <value unit="" xsi:type= "PQ" value="NEG (< 300 ng/mL)" /> <referenceRange> < observationRange> <text>NEGATIVE</text> </ observationRange> </referenceRange> </observation> </ component> <component> <observation moodCode="EVN" classCode="OBS"> <templateId root="2.16.840.1.140501.10.20.22.4.2" /> <id nullFlavor="NA" /> <code codeSystem="local" code="BENZU" displayName= "UR BENZODIAZEPINE SCREEN" /> <statusCode code="completed" /> <effectiveTime value="" /> <value unit="" xsi:type="PQ" value="NEG (< 200 ng/mL)" /> <referenceRange> < observationRange> <text>NEGATIVE</text> </ observationRange> </referenceRange> </observation> </ component> </organizer> </entry> <entry> <organizer moodCode="EVN" classCode="BATTERY"> <templateId root="2.16.840.1.397812.10.20.22.4.1" /> <id nullFlavor="NA" /> <code codeSystem="local" code="CHL" displayName ="CHLAMYDIA DNA BY PCR" /> <statusCode code="completed" /> <component > <observation moodCode="EVN" classCode="OBS"> <templateId root= "2.16.840.1.056523.10.20.22.4.2" /> <id nullFlavor="NA" /> < code codeSystem="local" code="MB" displayName="Microbiology" /> < statusCode code="completed" /> <effectiveTime value="[id number]" /> <value xsi:type="ST" value="<pre><b>CHLAMYDIA DNA BY PCR - GONORRHOEA DNA BY PCR</b> See BelowCHLAMYDIA DNA BY PCR(F) Franko Date/Time: 2015 19:31 Luly Date/Time: 02/03/2016 13:22SOURCE : URINESPEC DESC: [facility] [place], [place] [address]Saf BelowGONORRHOEA DNA BY PCR(F) Franko Date/Time: 01/31/2016 19:31 Luly Date/Time: 02/03/2016 13:22SOURCE: URINESPEC DESC: [address] [address]</ pre>" /> <referenceRange> <observationRange> < text /> </observationRange> </referenceRange> </ observation> </component> </organizer> </entry> <entry> <organizer moodCode="EVN" classCode="BATTERY"> <templateId root= "2.16.840.1.803809.10.20.22.4.1" /> <id nullFlavor="NA" /> <code codeSystem="local" code="WET" displayName="WET MOUNT" /> <statusCode code= "completed" /> <component> <observation moodCode="EVN" classCode= "OBS"> <templateId root="2.16.840.1.017330.10.20.22.4.2" /> < id nullFlavor="NA" /> <code codeSystem="local" code="MB" displayName= "Microbiology" /> <statusCode code="completed" /> < effectiveTime value="[id number]" /> <value xsi:type="ST" value="<pre> <b>WET MOUNT</b> See Below: [facility] room 47 jkgWET MOUNT(F) Franko Date/Time: 01/31/2016 20:00 Luly Date/Time: 2015 21:01SOURCE: VAGINALSPEC DESC: CLUE CELLSNO CLUE CELLS SEENTRICHOMONASNO TRICHOMONAS SEENYEAST (Abnormal)MANY YEAST (Abnormal)[address] [address]</pre>" /> <referenceRange > <observationRange> <text /> </ observationRange> </referenceRange> </observation> </ component> </organizer> </entry> <entry> <organizer moodCode="EVN" classCode="BATTERY"> <templateId root="05.07.840.1.400971.10..22.4.1" /> <id nullFlavor="NA" /> <code codeSystem="local" code="GRAM" displayName="GRAM STAIN - CHLAMYDIA DNA BY PCR" /> <statusCode code= "completed" /> <component> <observation moodCode="EVN" classCode= "OBS"> <templateId root="05.07.840.1.090769.01.08.22.4.2" /> < id nullFlavor="NA" /> <code codeSystem="local" code="MB" displayName= "Microbiology" /> <statusCode code="completed" /> < effectiveTime value="[id number]" /> <value xsi:type="ST" value="<pre> <b>GRAM STAIN</b> See Below: [facility] room 47 jkgGRAM STAIN(F) Franko Date/Time: 01/31/2016 20:00 Luly Date/Time: 01/31/2016 21:03SOURCE: VAGINALSPEC DESC: GRAM STAINRARE NEUTROPHILSNO ORGANISMS SEEN RESEMBLING NEISSERIA GONORRHOEAEMANY GRAM POSITIVE BACILLI RESEMBLING LACTOBACILLUSCHI [facility] [place] [address]</ pre>" /> <referenceRange> <observationRange> < text /> </observationRange> </referenceRange> </ observation> </component> </organizer> </entry> <entry> <organizer moodCode="EVN" classCode="BATTERY"> <templateId root= "05.07.840.1.830875.10..22.4.1" /> <id nullFlavor="NA" /> <code codeSystem="local" code="iCHEM8" displayName="CHEM/HEM PROFILE-BEDSIDE" /> <statusCode code="completed" /> <component> <observation moodCode= "EVN" classCode="OBS"> <templateId root="05.07.840.1.259610.01.08.22.4.2 " /> <id nullFlavor="NA" /> <code codeSystem="local" code="K" displayName="POTASSIUM" /> <statusCode code="completed" /> < effectiveTime value="" /> <value unit="mmol/L" xsi:type="PQ " value="3.5" /> <referenceRange> <observationRange> <text>3.5-5.3</text> </observationRange> </ referenceRange> </observation> </component> <component> <observation moodCode="EVN" classCode="OBS"> <templateId root= "216.840.1.719820...4.2" /> <id nullFlavor="NA" /> < code codeSystem="local" code="CMETHOD" displayName="METHOD" /> < statusCode code="completed" /> <effectiveTime value="" /> <value unit="" xsi:type="PQ" value="Bedside" /> < referenceRange> <observationRange> <text /> < /observationRange> </referenceRange> </observation> </ component> <component> <observation moodCode="EVN" classCode="OBS"> <templateId root="2.16.840.1.458880....4.2" /> <id nullFlavor="NA" /> <code codeSystem="local" code="GAP" displayName= "ANION GAP" /> <statusCode code="completed" /> <effectiveTime value="" /> <value unit="mmol/L" xsi:type="PQ" value="0" / > <interpretationCode codeSystem="local" code="*" /> < referenceRange> <observationRange> <text>10-20</text> </observationRange> </referenceRange> </observation> </component> <component> <observation moodCode="EVN" classCode= "OBS"> <templateId root="216.840.1.106774.10..22.4.2" /> < id nullFlavor="NA" /> <code codeSystem="local" code="HMETHOD" displayName="METHOD" /> <statusCode code="completed" /> < effectiveTime value="" /> <value unit="" xsi:type="PQ" value="Bedside" /> <referenceRange> <observationRange> <text /> </observationRange> </referenceRange> </observation> </component> <component> <observation moodCode="EVN" classCode="OBS"> <templateId root= "216.840.1.525861...4.2" /> <id nullFlavor="NA" /> < code codeSystem="local" code="GLU" displayName="GLUCOSE" /> < statusCode code="completed" /> <effectiveTime value="" /> <value unit="mg/dL" xsi:type="PQ" value="95" /> < referenceRange> <observationRange> <text>70-99</text> </observationRange> </referenceRange> </observation> </component> <component> <observation moodCode="EVN" classCode= "OBS"> <templateId root="16.840.1.543517.01.08.22.4.2" /> < id nullFlavor="NA" /> <code codeSystem="local" code="BUN" displayName= "BLOOD UREA NITROGEN" /> <statusCode code="completed" /> < effectiveTime value="876392722842" /> <value unit="mg/dL" xsi:type="PQ " value="16" /> <referenceRange> <observationRange> <text>7-20</text> </observationRange> </referenceRange > </observation> </component> <component> <observation moodCode="EVN" classCode="OBS"> <templateId root= "216.840.1.989435.10.22.4.2" /> <id nullFlavor="NA" /> < code codeSystem="local" code="CREAT" displayName="CREATININE" /> < statusCode code="completed" /> <effectiveTime value="" /> <value unit="mg/dL" xsi:type="PQ" value="0.8" /> < referenceRange> <observationRange> <text>0.6-1.0</text> </observationRange> </referenceRange> </observation > </component> <component> <observation moodCode="EVN" classCode="OBS"> <templateId root="05.07.840.1.388055.01.08.22.4.2" /> <id nullFlavor="NA" /> <code codeSystem="local" code="HGBT" displayName="HEMOGLOBIN" /> <statusCode code="completed" /> < effectiveTime value="889899813856" /> <value unit="gm/dL" xsi:type="PQ " value="12.6" /> <referenceRange> <observationRange> <text>12.0-16.0</text> </observationRange> </ referenceRange> </observation> </component> <component> <observation moodCode="EVN" classCode="OBS"> <templateId root= "16.840.1.351723.10..22.4.2" /> <id nullFlavor="NA" /> < code codeSystem="local" code="HCTT" displayName="HEMATOCRIT" /> < statusCode code="completed" /> <effectiveTime value="010206812401" /> <value unit="%" xsi:type="PQ" value="37.0" /> < referenceRange> <observationRange> <text>37.0-47.0</text > </observationRange> </referenceRange> </observation > </component> <component> <observation moodCode="EVN" classCode="OBS"> <templateId root="216.840.1.987691.10.20.22.4.2" /> <id nullFlavor="NA" /> <code codeSystem="local" code="NA" displayName="SODIUM" /> <statusCode code="completed" /> < effectiveTime value="" /> <value unit="mmol/L" xsi:type="PQ " value="141" /> <referenceRange> <observationRange> <text>135-148</text> </observationRange> </ referenceRange> </observation> </component> <component> <observation moodCode="EVN" classCode="OBS"> <templateId root= "16.840.1.279816.10.22.4.2" /> <id nullFlavor="NA" /> < code codeSystem="local" code="CL" displayName="CHLORIDE" /> < statusCode code="completed" /> <effectiveTime value="" /> <value unit="mmol/L" xsi:type="PQ" value="102" /> < referenceRange> <observationRange> <text>98-110</text> </observationRange> </referenceRange> </observation> </component> <component> <observation moodCode="EVN" classCode ="OBS"> <templateId root="16.840.1.987104.10.2022.4.2" /> < id nullFlavor="NA" /> <code codeSystem="local" code="CO2" displayName= "CARBON DIOXIDE" /> <statusCode code="completed" /> < effectiveTime value="819285721114" /> <value unit="mmol/L" xsi:type="PQ " value="43" /> <interpretationCode codeSystem="local" code="*" /> <referenceRange> <observationRange> <text>21-32</ text> </observationRange> </referenceRange> </ observation> </component> <component> <observation moodCode= "EVN" classCode="OBS"> <templateId root="840.1.390376.01.08.22.4.2 " /> <id nullFlavor="NA" /> <code codeSystem="local" code= "CAION" displayName="CALCIUM IONIZED" /> <statusCode code="completed" / > <effectiveTime value="" /> <value unit="mg/dL" xsi:type="PQ" value="4.7" /> <referenceRange> < observationRange> <text>4.5-5.3</text> </ observationRange> </referenceRange> </observation> </ component> </organizer> </entry> <entry> <organizer moodCode="EVN" classCode="BATTERY"> <templateId root="840.1.315968.01.08.22.4.1" /> <id nullFlavor="NA" /> <code codeSystem="local" code="UA" displayName= "URINALYSIS, ROUTINE" /> <statusCode code="completed" /> <component> <observation moodCode="EVN" classCode="OBS"> <templateId root= "840.1.916979.01.08.22.4.2" /> <id nullFlavor="NA" /> < code codeSystem="local" code="LEUESU" displayName="UA LEUKOCYTE ESTERASE DIPSTICK" /> <statusCode code="completed" /> <effectiveTime value="675893129703" /> <value unit="" xsi:type="PQ" value="NEGATIVE" / > <referenceRange> <observationRange> <text> NEGATIVE</text> </observationRange> </referenceRange> </observation> </component> <component> <observation moodCode ="EVN" classCode="OBS"> <templateId root= "05.07.840.1.321816.10.20.22.4.2" /> <id nullFlavor="NA" /> < code codeSystem="local" code="NITRIU" displayName="UA NITRITE DIPSTICK" /> <statusCode code="completed" /> <effectiveTime value="996963932411 " /> <value unit="" xsi:type="PQ" value="NEGATIVE" /> < referenceRange> <observationRange> <text>NEGATIVE</text > </observationRange> </referenceRange> </observation > </component> <component> <observation moodCode="EVN" classCode="OBS"> <templateId root="840.1.700167.10...4.2" /> <id nullFlavor="NA" /> <code codeSystem="local" code="PROTEIU " displayName="UA PROTEIN DIPSTICK" /> <statusCode code="completed" /> <effectiveTime value="851945892687" /> <value unit="" xsi: type="PQ" value="1+" /> <interpretationCode codeSystem="local" code="* " /> <referenceRange> <observationRange> <text> NEGATIVE</text> </observationRange> </referenceRange> </observation> </component> <component> <observation moodCode ="EVN" classCode="OBS"> <templateId root= "05.07.840.1.234799.10.20.22.4.2" /> <id nullFlavor="NA" /> < code codeSystem="local" code="DGLUU" displayName="UA GLUCOSE DIPSTICK" /> <statusCode code="completed" /> <effectiveTime value="963253570800 " /> <value unit="" xsi:type="PQ" value="NEGATIVE" /> < referenceRange> <observationRange> <text>NEGATIVE</text > </observationRange> </referenceRange> </observation > </component> <component> <observation moodCode="EVN" classCode="OBS"> <templateId root="216.840.1.747769.10..4.2" /> <id nullFlavor="NA" /> <code codeSystem="local" code="KETONU" displayName="UA KETONE DIPSTICK" /> <statusCode code="completed" /> <effectiveTime value="074985908836" /> <value unit="" xsi:type= "PQ" value="1+" /> <interpretationCode codeSystem="local" code="*" /> <referenceRange> <observationRange> <text> NEGATIVE</text> </observationRange> </referenceRange> </observation> </component> <component> <observation moodCode ="EVN" classCode="OBS"> <templateId root= "216.840.1.135540.10...4.2" /> <id nullFlavor="NA" /> < code codeSystem="local" code="UROBILU" displayName="UA UROBILINOGEN DIPSTICK" / > <statusCode code="completed" /> <effectiveTime value= "007862621744" /> <value unit="" xsi:type="PQ" value="NORMAL" /> <referenceRange> <observationRange> <text>NORMAL</ text> </observationRange> </referenceRange> </ observation> </component> <component> <observation moodCode= "EVN" classCode="OBS"> <templateId root="216.840.1.756037.01.08.22.4.2 " /> <id nullFlavor="NA" /> <code codeSystem="local" code= "BILU" displayName="UA BILIRUBIN DIPSTICK" /> <statusCode code= "completed" /> <effectiveTime value="290915587956" /> <value unit="" xsi:type="PQ" value="1+" /> <interpretationCode codeSystem= "local" code="*" /> <referenceRange> <observationRange> <text>NEGATIVE</text> </observationRange> </ referenceRange> </observation> </component> <component> <observation moodCode="EVN" classCode="OBS"> <templateId root= "216.840.1.045375.01.08.22.4.2" /> <id nullFlavor="NA" /> < code codeSystem="local" code="BREANNA" displayName="UA BLOOD DIPSTICK" /> < statusCode code="completed" /> <effectiveTime value="260314614170" /> <value unit="" xsi:type="PQ" value="NEGATIVE" /> < referenceRange> <observationRange> <text>NEGATIVE</text > </observationRange> </referenceRange> </observation > </component> <component> <observation moodCode="EVN" classCode="OBS"> <templateId root="216.840.1.820980.01.08.22.4.2" /> <id nullFlavor="NA" /> <code codeSystem="local" code="SPGRU" displayName="UA SPECIFIC GRAVITY" /> <statusCode code="completed" /> <effectiveTime value="532682704010" /> <value unit="" xsi:type= "PQ" value=">=1.030" /> <interpretationCode codeSystem="local" code= "*" /> <referenceRange> <observationRange> < text>1.015-1.025</text> </observationRange> </referenceRange > </observation> </component> <component> <observation moodCode="EVN" classCode="OBS"> <templateId root= "16.840.1.792511.10.22.4.2" /> <id nullFlavor="NA" /> < code codeSystem="local" code="CLOVER" displayName="UR PH" /> <statusCode code="completed" /> <effectiveTime value="638293853835" /> < value unit="" xsi:type="PQ" value="5.5" /> <referenceRange> <observationRange> <text>5.0-7.0</text> </ observationRange> </referenceRange> </observation> </ component> </organizer> </entry> <entry> <organizer moodCode="EVN" classCode="BATTERY"> <templateId root="16.840.1.299966.10..22.4.1" /> <id nullFlavor="NA" /> <code codeSystem="local" code="UAMICRO" displayName="UA MICROSCOPIC" /> <statusCode code="completed" /> < component> <observation moodCode="EVN" classCode="OBS"> < templateId root="16.840.1.292143.10..22.4.2" /> <id nullFlavor="NA " /> <code codeSystem="local" code="BACU" displayName="UA BACTERIA" /> <statusCode code="completed" /> <effectiveTime value= "785756328989" /> <value unit="" xsi:type="PQ" value="2+" /> < interpretationCode codeSystem="local" code="*" /> <referenceRange> <observationRange> <text>NEGATIVE</text> </ observationRange> </referenceRange> </observation> </ component> <component> <observation moodCode="EVN" classCode="OBS"> <templateId root="16.840.1.782786.10..4.2" /> <id nullFlavor="NA" /> <code codeSystem="local" code="EPIU" displayName=" UA EPITHELIAL CELLS" /> <statusCode code="completed" /> < effectiveTime value="" /> <value unit="epi/hpf" xsi:type= "PQ" value="1+" /> <referenceRange> <observationRange> <text>0 - 1+</text> </observationRange> </ referenceRange> </observation> </component> <component> <observation moodCode="EVN" classCode="OBS"> <templateId root= "16.840.1.829381...4.2" /> <id nullFlavor="NA" /> < code codeSystem="local" code="MUCUSU" displayName="UA MUCUS" /> < statusCode code="completed" /> <effectiveTime value="" /> <value unit="" xsi:type="PQ" value="4+" /> < interpretationCode codeSystem="local" code="*" /> <referenceRange> <observationRange> <text>NEG TO 1+</text> </ observationRange> </referenceRange> </observation> </ component> <component> <observation moodCode="EVN" classCode="OBS"> <templateId root="16.840.1.443285.10..22.4.2" /> <id nullFlavor="NA" /> <code codeSystem="local" code="RBCU" displayName=" UA RBC" /> <statusCode code="completed" /> <effectiveTime value="" /> <value unit="rbc/hpf" xsi:type="PQ" value="0-3 " /> <referenceRange> <observationRange> <text> 0 - 3</text> </observationRange> </referenceRange> </ observation> </component> <component> <observation moodCode= "EVN" classCode="OBS"> <templateId root="16.840.1.071014.10..22.4.2 " /> <id nullFlavor="NA" /> <code codeSystem="local" code= "UAVOL" displayName="UA VOLUME FOR EXAM" /> <statusCode code="completed " /> <effectiveTime value="549942913955" /> <value unit="mL" xsi:type="PQ" value="12.0" /> <referenceRange> < observationRange> <text>(12mL STD)</text> </ observationRange> </referenceRange> </observation> </ component> <component> <observation moodCode="EVN" classCode="OBS"> <templateId root="05.07.840.1.387909.10...4.2" /> <id nullFlavor="NA" /> <code codeSystem="local" code="WBCU" displayName=" UA WBC" /> <statusCode code="completed" /> <effectiveTime value="510705176983" /> <value unit="wbc/hpf" xsi:type="PQ" value="2-5 " /> <referenceRange> <observationRange> <text> 0 - 5</text> </observationRange> </referenceRange> </ observation> </component> </organizer> </entry> <entry> <organizer moodCode="EVN" classCode="BATTERY"> <templateId root= "05.07.840.1.298987.10.20.22.4.1" /> <id nullFlavor="NA" /> <code codeSystem="local" code="PREGU" displayName="UR TEST" /> < statusCode code="completed" /> <component> <observation moodCode= "EVN" classCode="OBS"> <templateId root="216.840.1.615910.10..22.4.2 " /> <id nullFlavor="NA" /> <code codeSystem="local" code= "PREGU" displayName="UR TEST" /> <statusCode code="completed " /> <effectiveTime value="965056948635" /> <value unit="" xsi :type="PQ" value="NEGATIVE" /> <referenceRange> < observationRange> <text>NEGATIVE</text> </ observationRange> </referenceRange> </observation> </ component> </organizer> </entry> <entry> <organizer moodCode="EVN" classCode="BATTERY"> <templateId root="2.840.1.963028.10..22.4.1" /> <id nullFlavor="NA" /> <code codeSystem="local" code="UA" displayName= "URINALYSIS, ROUTINE" /> <statusCode code="completed" /> <component> <observation moodCode="EVN" classCode="OBS"> <templateId root= "216.840.1.760662.10.20.22.4.2" /> <id nullFlavor="NA" /> < code codeSystem="local" code="LEUESU" displayName="UA LEUKOCYTE ESTERASE DIPSTICK" /> <statusCode code="completed" /> <effectiveTime value="816579959053" /> <value unit="" xsi:type="PQ" value="NEGATIVE" / > <referenceRange> <observationRange> <text> NEGATIVE</text> </observationRange> </referenceRange> </observation> </component> <component> <observation moodCode ="EVN" classCode="OBS"> <templateId root= "840.1.043968.10..22.4.2" /> <id nullFlavor="NA" /> < code codeSystem="local" code="NITRIU" displayName="UA NITRITE DIPSTICK" /> <statusCode code="completed" /> <effectiveTime value="086562517955 " /> <value unit="" xsi:type="PQ" value="NEGATIVE" /> < referenceRange> <observationRange> <text>NEGATIVE</text > </observationRange> </referenceRange> </observation > </component> <component> <observation moodCode="EVN" classCode="OBS"> <templateId root="216.840.1.027848.01.08.22.4.2" /> <id nullFlavor="NA" /> <code codeSystem="local" code="PROTEIU " displayName="UA PROTEIN DIPSTICK" /> <statusCode code="completed" /> <effectiveTime value="625780220736" /> <value unit="" xsi: type="PQ" value="1+" /> <interpretationCode codeSystem="local" code="* " /> <referenceRange> <observationRange> <text> NEGATIVE</text> </observationRange> </referenceRange> </observation> </component> <component> <observation moodCode ="EVN" classCode="OBS"> <templateId root= "16.840.1.610115.01.08.22.4.2" /> <id nullFlavor="NA" /> < code codeSystem="local" code="DGLUU" displayName="UA GLUCOSE DIPSTICK" /> <statusCode code="completed" /> <effectiveTime value="020604196796 " /> <value unit="" xsi:type="PQ" value="NEGATIVE" /> < referenceRange> <observationRange> <text>NEGATIVE</text > </observationRange> </referenceRange> </observation > </component> <component> <observation moodCode="EVN" classCode="OBS"> <templateId root="216.840.1.238478.10.4.2" /> <id nullFlavor="NA" /> <code codeSystem="local" code="KETONU" displayName="UA KETONE DIPSTICK" /> <statusCode code="completed" /> <effectiveTime value="695829480256" /> <value unit="" xsi:type= "PQ" value="TRACE" /> <interpretationCode codeSystem="local" code="*" / > <referenceRange> <observationRange> <text> NEGATIVE</text> </observationRange> </referenceRange> </observation> </component> <component> <observation moodCode ="EVN" classCode="OBS"> <templateId root= "05.07.840.1.718745.01.08.224.2" /> <id nullFlavor="NA" /> < code codeSystem="local" code="UROBILU" displayName="UA UROBILINOGEN DIPSTICK" / > <statusCode code="completed" /> <effectiveTime value= "938356754081" /> <value unit="" xsi:type="PQ" value="NORMAL" /> <referenceRange> <observationRange> <text>NORMAL</ text> </observationRange> </referenceRange> </ observation> </component> <component> <observation moodCode= "EVN" classCode="OBS"> <templateId root="216.840.1.606681.01.08.22.4.2 " /> <id nullFlavor="NA" /> <code codeSystem="local" code= "BILU" displayName="UA BILIRUBIN DIPSTICK" /> <statusCode code= "completed" /> <effectiveTime value="932418664890" /> <value unit="" xsi:type="PQ" value="1+" /> <interpretationCode codeSystem= "local" code="*" /> <referenceRange> <observationRange> <text>NEGATIVE</text> </observationRange> </ referenceRange> </observation> </component> <component> <observation moodCode="EVN" classCode="OBS"> <templateId root= "216.840.1.400865.22.4.2" /> <id nullFlavor="NA" /> < code codeSystem="local" code="BREANNA" displayName="UA BLOOD DIPSTICK" /> < statusCode code="completed" /> <effectiveTime value="483347852117" /> <value unit="" xsi:type="PQ" value="NEGATIVE" /> < referenceRange> <observationRange> <text>NEGATIVE</text > </observationRange> </referenceRange> </observation > </component> <component> <observation moodCode="EVN" classCode="OBS"> <templateId root="216.840.1.865017.01.08.22.4.2" /> <id nullFlavor="NA" /> <code codeSystem="local" code="SPGRU" displayName="UA SPECIFIC GRAVITY" /> <statusCode code="completed" /> <effectiveTime value="021771964581" /> <value unit="" xsi:type= "PQ" value=">=1.030" /> <interpretationCode codeSystem="local" code= "*" /> <referenceRange> <observationRange> < text>1.015-1.025</text> </observationRange> </referenceRange > </observation> </component> <component> <observation moodCode="EVN" classCode="OBS"> <templateId root= "216.840.1.831827..4.2" /> <id nullFlavor="NA" /> < code codeSystem="local" code="CLOVER" displayName="UR PH" /> <statusCode code="completed" /> <effectiveTime value="281304022962" /> < value unit="" xsi:type="PQ" value="5.5" /> <referenceRange> <observationRange> <text>5.0-7.0</text> </ observationRange> </referenceRange> </observation> </ component> </organizer> </entry> <entry> <organizer moodCode="EVN" classCode="BATTERY"> <templateId root="840.1.548192.01.08.224.1" /> <id nullFlavor="NA" /> <code codeSystem="local" code="UAMICRO" displayName="UA MICROSCOPIC" /> <statusCode code="completed" /> < component> <observation moodCode="EVN" classCode="OBS"> < templateId root="840.1.065911.01.08.224.2" /> <id nullFlavor="NA " /> <code codeSystem="local" code="BACU" displayName="UA BACTERIA" /> <statusCode code="completed" /> <effectiveTime value= "371726542335" /> <value unit="" xsi:type="PQ" value="2+" /> < interpretationCode codeSystem="local" code="*" /> <referenceRange> <observationRange> <text>NEGATIVE</text> </ observationRange> </referenceRange> </observation> </ component> <component> <observation moodCode="EVN" classCode="OBS"> <templateId root="840.1.054082.01.08.224.2" /> <id nullFlavor="NA" /> <code codeSystem="local" code="EPIU" displayName=" UA EPITHELIAL CELLS" /> <statusCode code="completed" /> < effectiveTime value="994128856030" /> <value unit="epi/hpf" xsi:type= "PQ" value="2+" /> <interpretationCode codeSystem="local" code="*" /> <referenceRange> <observationRange> <text>0 - 1 +</text> </observationRange> </referenceRange> </ observation> </component> <component> <observation moodCode= "EVN" classCode="OBS"> <templateId root="2.16.840.1.890224.10..22.4.2 " /> <id nullFlavor="NA" /> <code codeSystem="local" code= "MUCUSU" displayName="UA MUCUS" /> <statusCode code="completed" /> <effectiveTime value="055801189795" /> <value unit="" xsi:type= "PQ" value="3+" /> <interpretationCode codeSystem="local" code="*" /> <referenceRange> <observationRange> <text>NEG TO 1+</text> </observationRange> </referenceRange> </ observation> </component> <component> <observation moodCode= "EVN" classCode="OBS"> <templateId root="216.840.1.624740.10..22.4.2 " /> <id nullFlavor="NA" /> <code codeSystem="local" code= "RBCU" displayName="UA RBC" /> <statusCode code="completed" /> <effectiveTime value="374882271527" /> <value unit="rbc/hpf" xsi:type ="PQ" value="0" /> <referenceRange> <observationRange> <text>0 - 3</text> </observationRange> </ referenceRange> </observation> </component> <component> <observation moodCode="EVN" classCode="OBS"> <templateId root= "05.07.840.1.575604.1022.4.2" /> <id nullFlavor="NA" /> < code codeSystem="local" code="UAVOL" displayName="UA VOLUME FOR EXAM" /> <statusCode code="completed" /> <effectiveTime value="830396714580" /> <value unit="mL" xsi:type="PQ" value="12.0" /> < referenceRange> <observationRange> <text>(12mL STD)</ text> </observationRange> </referenceRange> </ observation> </component> <component> <observation moodCode= "EVN" classCode="OBS"> <templateId root="05.07.840.1.674045.01.08.22.4.2 " /> <id nullFlavor="NA" /> <code codeSystem="local" code= "WBCU" displayName="UA WBC" /> <statusCode code="completed" /> <effectiveTime value="404098748035" /> <value unit="wbc/hpf" xsi:type ="PQ" value="0-1" /> <referenceRange> <observationRange> <text>0 - 5</text> </observationRange> </ referenceRange> </observation> </component> </organizer> </entry > <entry> <organizer moodCode="EVN" classCode="BATTERY"> <templateId root="05.07.840.1.823480.22.4.1" /> <id nullFlavor="NA" /> <code codeSystem="local" code="PREGU" displayName="UR TEST" /> < statusCode code="completed" /> <component> <observation moodCode= "EVN" classCode="OBS"> <templateId root="05.07.840.1.715418.22.4.2 " /> <id nullFlavor="NA" /> <code codeSystem="local" code= "PREGU" displayName="UR TEST" /> <statusCode code="completed " /> <effectiveTime value="271169210125" /> <value unit="" xsi :type="PQ" value="NEGATIVE" /> <referenceRange> < observationRange> <text>NEGATIVE</text> </ observationRange> </referenceRange> </observation> </ component> </organizer> </entry> <entry> <organizer moodCode="EVN" classCode="BATTERY"> <templateId root="216.840.1.381887.10..4.1" /> <id nullFlavor="NA" /> <code codeSystem="local" code="DRUGAB" displayName="UR DRUGS OF ABUSE SCREEN" /> <statusCode code="completed" /> <component> <observation moodCode="EVN" classCode="OBS"> < templateId root="216.840.1.437109.10...4.2" /> <id nullFlavor="NA " /> <code codeSystem="local" code="AMPHU" displayName="UR AMPHETAMINES SCREEN" /> <statusCode code="completed" /> < effectiveTime value="276324927922" /> <value unit="" xsi:type="PQ" value="NEG (<1000 ng/mL)" /> <referenceRange> < observationRange> <text>NEGATIVE</text> </ observationRange> </referenceRange> </observation> </ component> <component> <observation moodCode="EVN" classCode="OBS"> <templateId root="216.840.1.209327.10..22.4.2" /> <id nullFlavor="NA" /> <code codeSystem="local" code="BARBU" displayName= "UR BARBITURATE SCREEN" /> <statusCode code="completed" /> < effectiveTime value="" /> <value unit="" xsi:type="PQ" value="NEG (< 200 ng/mL)" /> <referenceRange> < observationRange> <text>NEGATIVE</text> </ observationRange> </referenceRange> </observation> </ component> <component> <observation moodCode="EVN" classCode="OBS"> <templateId root="216.840.1.997158.10..22.4.2" /> <id nullFlavor="NA" /> <code codeSystem="local" code="DAUCOMMENT" displayName="DRUGS OF ABUSE SCREEN COMMENT" /> <statusCode code= "completed" /> <effectiveTime value="" /> <value unit="" xsi:type="PQ" value="" /> <referenceRange> < observationRange> <text /> </observationRange> </referenceRange> </observation> </component> <component> <observation moodCode="EVN" classCode="OBS"> <templateId root= "216.840.1.643149.10..22.4.2" /> <id nullFlavor="NA" /> < code codeSystem="local" code="OPIU" displayName="UR OPIATES SCREEN" /> <statusCode code="completed" /> <effectiveTime value="" /> <value unit="" xsi:type="PQ" value="NEG (< 300 ng/mL)" /> <referenceRange> <observationRange> <text>NEGATIVE</ text> </observationRange> </referenceRange> </ observation> </component> <component> <observation moodCode= "EVN" classCode="OBS"> <templateId root="16.840.1.905328.10..22.4.2 " /> <id nullFlavor="NA" /> <code codeSystem="local" code= "PCPU" displayName="UR PHENCYCLIDINE (PCP) SCREEN" /> <statusCode code= "completed" /> <effectiveTime value="234197422466" /> <value unit="" xsi:type="PQ" value="NEG (< 25 ng/mL)" /> <referenceRange > <observationRange> <text>NEGATIVE</text> </ observationRange> </referenceRange> </observation> </ component> <component> <observation moodCode="EVN" classCode="OBS"> <templateId root="16.840.1.345295.10.4.2" /> <id nullFlavor="NA" /> <code codeSystem="local" code="THCU" displayName=" UR CANNABINOIDS (THC) SCREEN" /> <statusCode code="completed" /> <effectiveTime value="452895528854" /> <value unit="" xsi:type="PQ " value="POS (> 50 ng/mL)" /> <interpretationCode codeSystem= "local" code="*" /> <referenceRange> <observationRange> <text>NEGATIVE</text> </observationRange> </ referenceRange> </observation> </component> <component> <observation moodCode="EVN" classCode="OBS"> <templateId root= "16.840.1.888149.10..22.4.2" /> <id nullFlavor="NA" /> < code codeSystem="local" code="COCAU" displayName="UR COCAINE METABOLITE SCREEN" /> <statusCode code="completed" /> <effectiveTime value= "229355806588" /> <value unit="" xsi:type="PQ" value="NEG (< 300 ng /mL)" /> <referenceRange> <observationRange> < text>NEGATIVE</text> </observationRange> </referenceRange> </observation> </component> <component> <observation moodCode="EVN" classCode="OBS"> <templateId root= "216.840.1.339628.10..22.4.2" /> <id nullFlavor="NA" /> < code codeSystem="local" code="METHU" displayName="UR METHADONE SCREEN" /> <statusCode code="completed" /> <effectiveTime value=" " /> <value unit="" xsi:type="PQ" value="NEG (< 300 ng/mL)" /> <referenceRange> <observationRange> <text>NEGATIVE </text> </observationRange> </referenceRange> </ observation> </component> <component> <observation moodCode= "EVN" classCode="OBS"> <templateId root="16.840.1.363673.10..22.4.2 " /> <id nullFlavor="NA" /> <code codeSystem="local" code= "BENZU" displayName="UR BENZODIAZEPINE SCREEN" /> <statusCode code= "completed" /> <effectiveTime value="701131147017" /> <value unit="" xsi:type="PQ" value="NEG (< 200 ng/mL)" /> <referenceRange > <observationRange> <text>NEGATIVE</text> </ observationRange> </referenceRange> </observation> </ component> </organizer> </entry> <entry> <organizer moodCode="EVN" classCode="BATTERY"> <templateId root="216.840.1.054252.10..22.4.1" /> <id nullFlavor="NA" /> <code codeSystem="local" code="CBCD" displayName="CBC W/DIFF" /> <statusCode code="completed" /> <component > <observation moodCode="EVN" classCode="OBS"> <templateId root= "16.840.1.995718.10..4.2" /> <id nullFlavor="NA" /> < code codeSystem="local" code="EO#" displayName="EOSINOPHIL #" /> < statusCode code="completed" /> <effectiveTime value="360805371521" /> <value unit="k/cumm" xsi:type="PQ" value="0.1" /> < referenceRange> <observationRange> <text>0.1-0.5</text> </observationRange> </referenceRange> </observation > </component> <component> <observation moodCode="EVN" classCode="OBS"> <templateId root="05.07.840.1.213676.01.08.22.4.2" /> <id nullFlavor="NA" /> <code codeSystem="local" code="EO% " displayName="EOSINOPHIL %" /> <statusCode code="completed" /> <effectiveTime value="858498792930" /> <value unit="%" xsi: type="PQ" value="2" /> <referenceRange> <observationRange> <text>2-4</text> </observationRange> </ referenceRange> </observation> </component> <component> <observation moodCode="EVN" classCode="OBS"> <templateId root= "16.840.1.373070.10.22.4.2" /> <id nullFlavor="NA" /> < code codeSystem="local" code="GR#" displayName="GRANULOCYTE #" /> < statusCode code="completed" /> <effectiveTime value="467266975700" /> <value unit="k/cumm" xsi:type="PQ" value="3.6" /> < referenceRange> <observationRange> <text>2.0-9.0</text> </observationRange> </referenceRange> </observation > </component> <component> <observation moodCode="EVN" classCode="OBS"> <templateId root="05.07.840.1.592474.10.20.22.4.2" /> <id nullFlavor="NA" /> <code codeSystem="local" code="GR% " displayName="GRANULOCYTE %" /> <statusCode code="completed" /> <effectiveTime value="451714006944" /> <value unit="%" xsi: type="PQ" value="57" /> <referenceRange> <observationRange> <text>50-75</text> </observationRange> </ referenceRange> </observation> </component> <component> <observation moodCode="EVN" classCode="OBS"> <templateId root= "840.1.591060.10...4.2" /> <id nullFlavor="NA" /> < code codeSystem="local" code="LY#" displayName="LYMPHOCYTE #" /> < statusCode code="completed" /> <effectiveTime value="293157373937" /> <value unit="k/cumm" xsi:type="PQ" value="2.2" /> < referenceRange> <observationRange> <text>1.0-4.0</text> </observationRange> </referenceRange> </observation > </component> <component> <observation moodCode="EVN" classCode="OBS"> <templateId root="05.07.840.1.353777.10.20.22.4.2" /> <id nullFlavor="NA" /> <code codeSystem="local" code="LY% " displayName="LYMPHOCYTE %" /> <statusCode code="completed" /> <effectiveTime value="134776117108" /> <value unit="%" xsi: type="PQ" value="34" /> <interpretationCode codeSystem="local" code="* " /> <referenceRange> <observationRange> <text> 20-30</text> </observationRange> </referenceRange> </ observation> </component> <component> <observation moodCode= "EVN" classCode="OBS"> <templateId root="2.16.840.1.610381.10..22.4.2 " /> <id nullFlavor="NA" /> <code codeSystem="local" code="MCH " displayName="MEAN CELL HGB" /> <statusCode code="completed" /> <effectiveTime value="722321420809" /> <value unit="pg" xsi:type= "PQ" value="27.8" /> <referenceRange> <observationRange> <text>27.0-33.0</text> </observationRange> </ referenceRange> </observation> </component> <component> <observation moodCode="EVN" classCode="OBS"> <templateId root= "2.16.840.1.346170.10.20.22.4.2" /> <id nullFlavor="NA" /> < code codeSystem="local" code="MCHC" displayName="MEAN CELL HGB CONCENTRATION" / > <statusCode code="completed" /> <effectiveTime value= "381049045480" /> <value unit="g/dL" xsi:type="PQ" value="32.9" /> <referenceRange> <observationRange> <text>32.0- 37.0</text> </observationRange> </referenceRange> </ observation> </component> <component> <observation moodCode= "EVN" classCode="OBS"> <templateId root="840.1.519448.10.2022.4.2 " /> <id nullFlavor="NA" /> <code codeSystem="local" code="MCV " displayName="MEAN CELL VOLUME" /> <statusCode code="completed" /> <effectiveTime value="529141951623" /> <value unit="fl" xsi:type ="PQ" value="84.4" /> <referenceRange> <observationRange> <text>80.0-100.0</text> </observationRange> </ referenceRange> </observation> </component> <component> <observation moodCode="EVN" classCode="OBS"> <templateId root= "840.1.152856.1022.4.2" /> <id nullFlavor="NA" /> < code codeSystem="local" code="MO#" displayName="MONOCYTE #" /> < statusCode code="completed" /> <effectiveTime value="567709655774" /> <value unit="k/cumm" xsi:type="PQ" value="0.4" /> < referenceRange> <observationRange> <text>0.1-1.0</text> </observationRange> </referenceRange> </observation > </component> <component> <observation moodCode="EVN" classCode="OBS"> <templateId root="840.1.715510.10.2022.4.2" /> <id nullFlavor="NA" /> <code codeSystem="local" code="MO% " displayName="MONOCYTE %" /> <statusCode code="completed" /> <effectiveTime value="326269205051" /> <value unit="%" xsi: type="PQ" value="7" /> <interpretationCode codeSystem="local" code="*" /> <referenceRange> <observationRange> <text>4- 6</text> </observationRange> </referenceRange> </ observation> </component> <component> <observation moodCode= "EVN" classCode="OBS"> <templateId root="216.840.1.113519.10.20.22.4.2 " /> <id nullFlavor="NA" /> <code codeSystem="local" code="RBC " displayName="RED BLOOD CELL" /> <statusCode code="completed" /> <effectiveTime value="660001201745" /> <value unit="m/cumm" xsi: type="PQ" value="4.68" /> <referenceRange> <observationRange > <text>4.00-6.00</text> </observationRange> </ referenceRange> </observation> </component> <component> <observation moodCode="EVN" classCode="OBS"> <templateId root= "05.07.840.1.619015.10.20.22.4.2" /> <id nullFlavor="NA" /> < code codeSystem="local" code="RDW" displayName="RED CELL DISTRIBUTION WIDTH" /> <statusCode code="completed" /> <effectiveTime value= "116078069552" /> <value unit="%" xsi:type="PQ" value="13.0" /> <referenceRange> <observationRange> <text>11.0- 15.6</text> </observationRange> </referenceRange> </ observation> </component> <component> <observation moodCode= "EVN" classCode="OBS"> <templateId root="16.840.1.233878.10.20.22.4.2 " /> <id nullFlavor="NA" /> <code codeSystem="local" code="WBC " displayName="WHITE BLOOD CELL" /> <statusCode code="completed" /> <effectiveTime value="680294332554" /> <value unit="k/cumm" xsi: type="PQ" value="6.4" /> <referenceRange> <observationRange > <text>5.0-10.0</text> </observationRange> </ referenceRange> </observation> </component> <component> <observation moodCode="EVN" classCode="OBS"> <templateId root= "216.840.1.918872.10.20.22.4.2" /> <id nullFlavor="NA" /> < code codeSystem="local" code="HGBT" displayName="HEMOGLOBIN" /> < statusCode code="completed" /> <effectiveTime value="924696099154" /> <value unit="gm/dL" xsi:type="PQ" value="13.0" /> < referenceRange> <observationRange> <text>12.0-16.0</text > </observationRange> </referenceRange> </observation > </component> <component> <observation moodCode="EVN" classCode="OBS"> <templateId root="216.840.1.352107.10.20.22.4.2" /> <id nullFlavor="NA" /> <code codeSystem="local" code="HCTT" displayName="HEMATOCRIT" /> <statusCode code="completed" /> < effectiveTime value="048222431085" /> <value unit="%" xsi:type="PQ " value="39.5" /> <referenceRange> <observationRange> <text>37.0-47.0</text> </observationRange> </ referenceRange> </observation> </component> <component> <observation moodCode="EVN" classCode="OBS"> <templateId root= "05.07.840.1.981438.01.08.22.4.2" /> <id nullFlavor="NA" /> < code codeSystem="local" code="PLT" displayName="PLATELET COUNT" /> < statusCode code="completed" /> <effectiveTime value="914296672744" /> <value unit="k/cumm" xsi:type="PQ" value="252" /> < referenceRange> <observationRange> <text>150-400</text> </observationRange> </referenceRange> </observation > </component> </organizer> </entry> <entry> <organizer moodCode= "EVN" classCode="BATTERY"> <templateId root="05.07.840.1.721533.22.4.1 " /> <id nullFlavor="NA" /> <code codeSystem="local" code="LIVER" displayName="HEPATIC FUNCTION PANEL" /> <statusCode code="completed" /> <component> <observation moodCode="EVN" classCode="OBS"> < templateId root="05.07.840.1.161794....4.2" /> <id nullFlavor="NA " /> <code codeSystem="local" code="BILUC" displayName="BILI UNCONJUGATED" /> <statusCode code="completed" /> < effectiveTime value="284282465499" /> <value unit="mg/dL" xsi:type="PQ " value="1.0" /> <interpretationCode codeSystem="local" code="*" /> <referenceRange> <observationRange> <text>0.0-0.7 </text> </observationRange> </referenceRange> </ observation> </component> <component> <observation moodCode= "EVN" classCode="OBS"> <templateId root="05.07.840.1.941777.01.08.22.4.2 " /> <id nullFlavor="NA" /> <code codeSystem="local" code="AST " displayName="AST/SGOT" /> <statusCode code="completed" /> < effectiveTime value="" /> <value unit="Units/L" xsi:type= "PQ" value="9" /> <interpretationCode codeSystem="local" code="*" /> <referenceRange> <observationRange> <text>10-37< /text> </observationRange> </referenceRange> </ observation> </component> <component> <observation moodCode= "EVN" classCode="OBS"> <templateId root="2.16.840.1.763262.01.08.224.2 " /> <id nullFlavor="NA" /> <code codeSystem="local" code="ALT " displayName="ALT/SGPT" /> <statusCode code="completed" /> < effectiveTime value="" /> <value unit="Units/L" xsi:type= "PQ" value="19" /> <referenceRange> <observationRange> <text>< 66</text> </observationRange> </ referenceRange> </observation> </component> <component> <observation moodCode="EVN" classCode="OBS"> <templateId root= "2.16.840.1.530632.10.4.2" /> <id nullFlavor="NA" /> < code codeSystem="local" code="TP" displayName="TOTAL PROTEIN" /> < statusCode code="completed" /> <effectiveTime value="" /> <value unit="gm/dL" xsi:type="PQ" value="7.1" /> < referenceRange> <observationRange> <text>6.4-8.2</text> </observationRange> </referenceRange> </observation > </component> <component> <observation moodCode="EVN" classCode="OBS"> <templateId root="16.840.1.334368.01.08.22.4.2" /> <id nullFlavor="NA" /> <code codeSystem="local" code="ALB" displayName="ALBUMIN" /> <statusCode code="completed" /> < effectiveTime value="" /> <value unit="gm/dL" xsi:type="PQ " value="3.8" /> <referenceRange> <observationRange> <text>3.4-5.0</text> </observationRange> </ referenceRange> </observation> </component> <component> <observation moodCode="EVN" classCode="OBS"> <templateId root= "16.840.1.239225.01.08.22.4.2" /> <id nullFlavor="NA" /> < code codeSystem="local" code="BILTOT" displayName="BILI TOTAL" /> < statusCode code="completed" /> <effectiveTime value="" /> <value unit="mg/dL" xsi:type="PQ" value="1.3" /> < interpretationCode codeSystem="local" code="*" /> <referenceRange> <observationRange> <text>0.0-1.0</text> </ observationRange> </referenceRange> </observation> </ component> <component> <observation moodCode="EVN" classCode="OBS"> <templateId root="05.07.840.1.846749.01.08.22.4.2" /> <id nullFlavor="NA" /> <code codeSystem="local" code="ALKP" displayName= "ALKALINE PHOSPHATASE TOTAL" /> <statusCode code="completed" /> <effectiveTime value="" /> <value unit="IU/L" xsi:type= "PQ" value="60" /> <referenceRange> <observationRange> <text>45-117</text> </observationRange> </ referenceRange> </observation> </component> <component> <observation moodCode="EVN" classCode="OBS"> <templateId root= "216.840.1.428434.10..4.2" /> <id nullFlavor="NA" /> < code codeSystem="local" code="BILC" displayName="BILI CONJUGATED" /> < statusCode code="completed" /> <effectiveTime value="319897975028" /> <value unit="mg/dL" xsi:type="PQ" value="0.3" /> < referenceRange> <observationRange> <text>0.0-0.3</text> </observationRange> </referenceRange> </observation > </component> </organizer> </entry> <entry> <organizer moodCode= "EVN" classCode="BATTERY"> <templateId root="05.07.840.1.751275.22.4.1 " /> <id nullFlavor="NA" /> <code codeSystem="local" code="MAG" displayName="MAGNESIUM" /> <statusCode code="completed" /> <component > <observation moodCode="EVN" classCode="OBS"> <templateId root= "16.840.1.351096.10.22.4.2" /> <id nullFlavor="NA" /> < code codeSystem="local" code="MAG" displayName="MAGNESIUM" /> < statusCode code="completed" /> <effectiveTime value="003109860444" /> <value unit="mg/dL" xsi:type="PQ" value="2.2" /> < referenceRange> <observationRange> <text>1.8-2.4</text> </observationRange> </referenceRange> </observation > </component> </organizer> </entry> <entry> <organizer moodCode= "EVN" classCode="BATTERY"> <templateId root="05.07.840.1.090187.10..22.4.1 " /> <id nullFlavor="NA" /> <code codeSystem="local" code="TSH" displayName="THYROID STIM HORMONE (TSH)" /> <statusCode code="completed" / > <component> <observation moodCode="EVN" classCode="OBS"> <templateId root="840.1.738452.10..4.2" /> <id nullFlavor="NA " /> <code codeSystem="local" code="TSH" displayName="THYROID STIM HORMONE (TSH)" /> <statusCode code="completed" /> < effectiveTime value="962121223099" /> <value unit="uIU/mL" xsi:type="PQ " value="0.82" /> <referenceRange> <observationRange> <text>0.46-4.13</text> </observationRange> </ referenceRange> </observation> </component> </organizer> </entry > <entry> <organizer moodCode="EVN" classCode="BATTERY"> <templateId root="05.07.840.1.131811.10..22.4.1" /> <id nullFlavor="NA" /> <code codeSystem="local" code="LIP" displayName="LIPASE" /> <statusCode code= "completed" /> <component> <observation moodCode="EVN" classCode= "OBS"> <templateId root="05.07.840.1.982217.10..22.4.2" /> < id nullFlavor="NA" /> <code codeSystem="local" code="LIP" displayName= "LIPASE" /> <statusCode code="completed" /> <effectiveTime value="409624001961" /> <value unit="Units/L" xsi:type="PQ" value="180 " /> <referenceRange> <observationRange> <text> 73-393</text> </observationRange> </referenceRange> < /observation> </component> </organizer> </entry> <entry> < organizer moodCode="EVN" classCode="BATTERY"> <templateId root= "216.840.1.255063.10...4.1" /> <id nullFlavor="NA" /> <code codeSystem="local" code="PREALB" displayName="PREALBUMIN" /> <statusCode code="completed" /> <component> <observation moodCode="EVN" classCode="OBS"> <templateId root="216.840.1.116962.10..22.4.2" /> <id nullFlavor="NA" /> <code codeSystem="local" code="PREALB" displayName="PREALBUMIN" /> <statusCode code="completed" /> < effectiveTime value="134756047374" /> <value unit="mg/dL" xsi:type="PQ " value="24" /> <referenceRange> <observationRange> <text>20-40</text> </observationRange> </ referenceRange> </observation> </component> </organizer> </entry > <entry> <organizer moodCode="EVN" classCode="BATTERY"> <templateId root="216.840.1.343283.10...4.1" /> <id nullFlavor="NA" /> <code codeSystem="local" code="iCHEM8" displayName="CHEM/HEM PROFILE-BEDSIDE" /> <statusCode code="completed" /> <component> <observation moodCode= "EVN" classCode="OBS"> <templateId root="16.840.1.427544...4.2 " /> <id nullFlavor="NA" /> <code codeSystem="local" code="K" displayName="POTASSIUM" /> <statusCode code="completed" /> < effectiveTime value="443703994289" /> <value unit="mmol/L" xsi:type="PQ " value="3.6" /> <referenceRange> <observationRange> <text>3.5-5.3</text> </observationRange> </ referenceRange> </observation> </component> <component> <observation moodCode="EVN" classCode="OBS"> <templateId root= "16.840.1.512771.01.08.22.4.2" /> <id nullFlavor="NA" /> < code codeSystem="local" code="CMETHOD" displayName="METHOD" /> < statusCode code="completed" /> <effectiveTime value="651503540831" /> <value unit="" xsi:type="PQ" value="Bedside" /> < referenceRange> <observationRange> <text /> < /observationRange> </referenceRange> </observation> </ component> <component> <observation moodCode="EVN" classCode="OBS"> <templateId root="16.840.1.354092...4.2" /> <id nullFlavor="NA" /> <code codeSystem="local" code="GAP" displayName= "ANION GAP" /> <statusCode code="completed" /> <effectiveTime value="563635185098" /> <value unit="mmol/L" xsi:type="PQ" value="19" / > <referenceRange> <observationRange> <text>10- 20</text> </observationRange> </referenceRange> </ observation> </component> <component> <observation moodCode= "EVN" classCode="OBS"> <templateId root="216.840.1.978285.10.22.4.2 " /> <id nullFlavor="NA" /> <code codeSystem="local" code= "HMETHOD" displayName="METHOD" /> <statusCode code="completed" /> <effectiveTime value="863665323012" /> <value unit="" xsi:type="PQ " value="Bedside" /> <referenceRange> <observationRange> <text /> </observationRange> </referenceRange> </observation> </component> <component> <observation moodCode="EVN" classCode="OBS"> <templateId root= "05.07.840.1.513014.01.08.22.4.2" /> <id nullFlavor="NA" /> < code codeSystem="local" code="GLU" displayName="GLUCOSE" /> < statusCode code="completed" /> <effectiveTime value="096941797141" /> <value unit="mg/dL" xsi:type="PQ" value="75" /> < referenceRange> <observationRange> <text>70-99</text> </observationRange> </referenceRange> </observation> </component> <component> <observation moodCode="EVN" classCode= "OBS"> <templateId root="05.07.840.1.448473..22.4.2" /> < id nullFlavor="NA" /> <code codeSystem="local" code="BUN" displayName= "BLOOD UREA NITROGEN" /> <statusCode code="completed" /> < effectiveTime value="745941602444" /> <value unit="mg/dL" xsi:type="PQ " value="17" /> <referenceRange> <observationRange> <text>7-20</text> </observationRange> </referenceRange > </observation> </component> <component> <observation moodCode="EVN" classCode="OBS"> <templateId root= "05.07.840.1.832295.10.20.22.4.2" /> <id nullFlavor="NA" /> < code codeSystem="local" code="CREAT" displayName="CREATININE" /> < statusCode code="completed" /> <effectiveTime value="977060735239" /> <value unit="mg/dL" xsi:type="PQ" value="0.9" /> < referenceRange> <observationRange> <text>0.6-1.0</text> </observationRange> </referenceRange> </observation > </component> <component> <observation moodCode="EVN" classCode="OBS"> <templateId root="05.07.840.1.149644.10..22.4.2" /> <id nullFlavor="NA" /> <code codeSystem="local" code="HGBT" displayName="HEMOGLOBIN" /> <statusCode code="completed" /> < effectiveTime value="531318473447" /> <value unit="gm/dL" xsi:type="PQ " value="12.2" /> <referenceRange> <observationRange> <text>12.0-16.0</text> </observationRange> </ referenceRange> </observation> </component> <component> <observation moodCode="EVN" classCode="OBS"> <templateId root= "05.07.840.1.344201.10.20.22.4.2" /> <id nullFlavor="NA" /> < code codeSystem="local" code="HCTT" displayName="HEMATOCRIT" /> < statusCode code="completed" /> <effectiveTime value="665876720076" /> <value unit="%" xsi:type="PQ" value="36.0" /> < interpretationCode codeSystem="local" code="*" /> <referenceRange> <observationRange> <text>37.0-47.0</text> </ observationRange> </referenceRange> </observation> </ component> <component> <observation moodCode="EVN" classCode="OBS"> <templateId root="216.840.1.522725.10..22.4.2" /> <id nullFlavor="NA" /> <code codeSystem="local" code="NA" displayName= "SODIUM" /> <statusCode code="completed" /> <effectiveTime value="773658534710" /> <value unit="mmol/L" xsi:type="PQ" value="142" /> <referenceRange> <observationRange> <text> 135-148</text> </observationRange> </referenceRange> </observation> </component> <component> <observation moodCode= "EVN" classCode="OBS"> <templateId root="05.07.840.1.293880.10..22.4.2 " /> <id nullFlavor="NA" /> <code codeSystem="local" code="CL " displayName="CHLORIDE" /> <statusCode code="completed" /> < effectiveTime value="248521458234" /> <value unit="mmol/L" xsi:type="PQ " value="104" /> <referenceRange> <observationRange> <text>98-110</text> </observationRange> </ referenceRange> </observation> </component> <component> <observation moodCode="EVN" classCode="OBS"> <templateId root= "05.07.840.1.698180.01.08.22.4.2" /> <id nullFlavor="NA" /> < code codeSystem="local" code="CO2" displayName="CARBON DIOXIDE" /> < statusCode code="completed" /> <effectiveTime value="952859968893" /> <value unit="mmol/L" xsi:type="PQ" value="23" /> < referenceRange> <observationRange> <text>21-32</text> </observationRange> </referenceRange> </observation> </component> <component> <observation moodCode="EVN" classCode= "OBS"> <templateId root="840.1.691324.01.08.22.4.2" /> < id nullFlavor="NA" /> <code codeSystem="local" code="CAION" displayName ="CALCIUM IONIZED" /> <statusCode code="completed" /> < effectiveTime value="250661345246" /> <value unit="mg/dL" xsi:type="PQ " value="4.5" /> <referenceRange> <observationRange> <text>4.5-5.3</text> </observationRange> </ referenceRange> </observation> </component> </organizer> </entry > <entry> <organizer moodCode="EVN" classCode="BATTERY"> <templateId root="840.1.466465.01.08.22.4.1" /> <id nullFlavor="NA" /> <code codeSystem="local" code="CAION" displayName="CALCIUM IONIZED" /> < statusCode code="completed" /> <component> <observation moodCode= "EVN" classCode="OBS"> <templateId root="05.07.840.1.275567.1022.4.2 " /> <id nullFlavor="NA" /> <code codeSystem="local" code= "CAION" displayName="CALCIUM IONIZED" /> <statusCode code="completed" / > <effectiveTime value="" /> <value unit="mg/dL" xsi:type="PQ" value="4.8" /> <referenceRange> < observationRange> <text>4.5-5.3</text> </ observationRange> </referenceRange> </observation> </ component> </organizer> </entry> <entry> <organizer moodCode="EVN" classCode="BATTERY"> <templateId root="216.840.1.624930.10..22.4.1" /> <id nullFlavor="NA" /> <code codeSystem="local" code="METABC" displayName="METABOLIC PANEL, COMPREHN" /> <statusCode code="completed" /> <component> <observation moodCode="EVN" classCode="OBS"> < templateId root="216.840.1.028856.10...4.2" /> <id nullFlavor="NA " /> <code codeSystem="local" code="K" displayName="POTASSIUM" /> <statusCode code="completed" /> <effectiveTime value=" " /> <value unit="mmol/L" xsi:type="PQ" value="4.1" /> < referenceRange> <observationRange> <text>3.5-5.3</text> </observationRange> </referenceRange> </observation > </component> <component> <observation moodCode="EVN" classCode="OBS"> <templateId root="16.840.1.834788.10.22.4.2" /> <id nullFlavor="NA" /> <code codeSystem="local" code="eGFR" displayName="EST GFR (MDRD)" /> <statusCode code="completed" /> <effectiveTime value="" /> <value unit="mL/min" xsi:type ="PQ" value="> 60" /> <referenceRange> <observationRange > <text>> 59</text> </observationRange> </ referenceRange> </observation> </component> <component> <observation moodCode="EVN" classCode="OBS"> <templateId root= "216.840.1.172985.10..22.4.2" /> <id nullFlavor="NA" /> < code codeSystem="local" code="GAP" displayName="ANION GAP" /> < statusCode code="completed" /> <effectiveTime value="" /> <value unit="mmol/L" xsi:type="PQ" value="6" /> < referenceRange> <observationRange> <text>5-15</text> </observationRange> </referenceRange> </observation> </component> <component> <observation moodCode="EVN" classCode= "OBS"> <templateId root="216.840.1.865379.10..22.4.2" /> < id nullFlavor="NA" /> <code codeSystem="local" code="eCrCl" displayName ="EST CrCl (CG)" /> <statusCode code="completed" /> < effectiveTime value="" /> <value unit="mL/min" xsi:type="PQ " value="> 60" /> <referenceRange> <observationRange> <text>> 59</text> </observationRange> </ referenceRange> </observation> </component> <component> <observation moodCode="EVN" classCode="OBS"> <templateId root= "216.840.1.457985.10..22.4.2" /> <id nullFlavor="NA" /> < code codeSystem="local" code="GLU" displayName="GLUCOSE" /> < statusCode code="completed" /> <effectiveTime value="" /> <value unit="mg/dL" xsi:type="PQ" value="73" /> < referenceRange> <observationRange> <text>70-99</text> </observationRange> </referenceRange> </observation> </component> <component> <observation moodCode="EVN" classCode= "OBS"> <templateId root="216.840.1.929968.10..22.4.2" /> < id nullFlavor="NA" /> <code codeSystem="local" code="CA" displayName= "CALCIUM" /> <statusCode code="completed" /> <effectiveTime value="" /> <value unit="mg/dL" xsi:type="PQ" value="8.6" / > <referenceRange> <observationRange> <text>8.5 -10.1</text> </observationRange> </referenceRange> </ observation> </component> <component> <observation moodCode= "EVN" classCode="OBS"> <templateId root="216.840.1.570534.10..22.4.2 " /> <id nullFlavor="NA" /> <code codeSystem="local" code="BUN " displayName="BLOOD UREA NITROGEN" /> <statusCode code="completed" /> <effectiveTime value="" /> <value unit="mg/dL" xsi:type="PQ" value="9" /> <referenceRange> < observationRange> <text>7-20</text> </observationRange> </referenceRange> </observation> </component> < component> <observation moodCode="EVN" classCode="OBS"> < templateId root="216.840.1.214873.22.4.2" /> <id nullFlavor="NA " /> <code codeSystem="local" code="CREAT" displayName="CREATININE" /> <statusCode code="completed" /> <effectiveTime value= "" /> <value unit="mg/dL" xsi:type="PQ" value="0.9" /> <referenceRange> <observationRange> <text>0.6-1.0< /text> </observationRange> </referenceRange> </ observation> </component> <component> <observation moodCode= "EVN" classCode="OBS"> <templateId root="2.16.840.1.481098.01.08.22.4.2 " /> <id nullFlavor="NA" /> <code codeSystem="local" code="NA " displayName="SODIUM" /> <statusCode code="completed" /> < effectiveTime value="" /> <value unit="mmol/L" xsi:type="PQ " value="141" /> <referenceRange> <observationRange> <text>135-148</text> </observationRange> </ referenceRange> </observation> </component> <component> <observation moodCode="EVN" classCode="OBS"> <templateId root= "216.840.1.036871...4.2" /> <id nullFlavor="NA" /> < code codeSystem="local" code="CL" displayName="CHLORIDE" /> < statusCode code="completed" /> <effectiveTime value="" /> <value unit="mmol/L" xsi:type="PQ" value="107" /> < referenceRange> <observationRange> <text>98-110</text> </observationRange> </referenceRange> </observation> </component> <component> <observation moodCode="EVN" classCode ="OBS"> <templateId root="216.840.1.808904.10..22.4.2" /> < id nullFlavor="NA" /> <code codeSystem="local" code="AST" displayName= "AST/SGOT" /> <statusCode code="completed" /> <effectiveTime value="" /> <value unit="Units/L" xsi:type="PQ" value="10" /> <referenceRange> <observationRange> <text>10 -37</text> </observationRange> </referenceRange> </ observation> </component> <component> <observation moodCode= "EVN" classCode="OBS"> <templateId root="216.840.1.852564.10...4.2 " /> <id nullFlavor="NA" /> <code codeSystem="local" code="ALT " displayName="ALT/SGPT" /> <statusCode code="completed" /> < effectiveTime value="" /> <value unit="Units/L" xsi:type= "PQ" value="16" /> <referenceRange> <observationRange> <text>< 66</text> </observationRange> </ referenceRange> </observation> </component> <component> <observation moodCode="EVN" classCode="OBS"> <templateId root= "216.840.1.445455.10...4.2" /> <id nullFlavor="NA" /> < code codeSystem="local" code="CO2" displayName="CARBON DIOXIDE" /> < statusCode code="completed" /> <effectiveTime value="" /> <value unit="mmol/L" xsi:type="PQ" value="28" /> < referenceRange> <observationRange> <text>21-32</text> </observationRange> </referenceRange> </observation> </component> <component> <observation moodCode="EVN" classCode= "OBS"> <templateId root="216.840.1.175037.01.08.22.4.2" /> < id nullFlavor="NA" /> <code codeSystem="local" code="TP" displayName= "TOTAL PROTEIN" /> <statusCode code="completed" /> < effectiveTime value="" /> <value unit="gm/dL" xsi:type="PQ " value="6.4" /> <referenceRange> <observationRange> <text>6.4-8.2</text> </observationRange> </ referenceRange> </observation> </component> <component> <observation moodCode="EVN" classCode="OBS"> <templateId root= "16.840.1.226896.01.08.224.2" /> <id nullFlavor="NA" /> < code codeSystem="local" code="ALB" displayName="ALBUMIN" /> < statusCode code="completed" /> <effectiveTime value="" /> <value unit="gm/dL" xsi:type="PQ" value="3.3" /> < interpretationCode codeSystem="local" code="*" /> <referenceRange> <observationRange> <text>3.4-5.0</text> </ observationRange> </referenceRange> </observation> </ component> <component> <observation moodCode="EVN" classCode="OBS"> <templateId root="16.840.1.800167.01.08.22.4.2" /> <id nullFlavor="NA" /> <code codeSystem="local" code="BILTOT" displayName= "BILI TOTAL" /> <statusCode code="completed" /> < effectiveTime value="" /> <value unit="mg/dL" xsi:type="PQ " value="1.6" /> <interpretationCode codeSystem="local" code="*" /> <referenceRange> <observationRange> <text>0.0-1.0 </text> </observationRange> </referenceRange> </ observation> </component> <component> <observation moodCode= "EVN" classCode="OBS"> <templateId root="16.840.1.420480.10..4.2 " /> <id nullFlavor="NA" /> <code codeSystem="local" code= "ALKP" displayName="ALKALINE PHOSPHATASE TOTAL" /> <statusCode code= "completed" /> <effectiveTime value="" /> <value unit="IU/L" xsi:type="PQ" value="56" /> <referenceRange> < observationRange> <text>45-117</text> </observationRange > </referenceRange> </observation> </component> </ organizer> </entry> <entry> <organizer moodCode="EVN" classCode="BATTERY"> <templateId root="05.07.840.1.587181.01.08.22.4.1" /> <id nullFlavor= "NA" /> <code codeSystem="local" code="PHOS" displayName="PHOSPHORUS" /> <statusCode code="completed" /> <component> <observation moodCode="EVN" classCode="OBS"> <templateId root= "05.07.840.1.002259...4.2" /> <id nullFlavor="NA" /> < code codeSystem="local" code="PHOS" displayName="PHOSPHORUS" /> < statusCode code="completed" /> <effectiveTime value="459588699708" /> <value unit="mg/dL" xsi:type="PQ" value="3.5" /> < referenceRange> <observationRange> <text>2.5-4.9</text> </observationRange> </referenceRange> </observation > </component> </organizer> </entry> <entry> <organizer moodCode= "EVN" classCode="BATTERY"> <templateId root="16.840.1.207790.10.22.4.1 " /> <id nullFlavor="NA" /> <code codeSystem="local" code="MAG" displayName="MAGNESIUM" /> <statusCode code="completed" /> <component > <observation moodCode="EVN" classCode="OBS"> <templateId root= "16.840.1.605049.10...4.2" /> <id nullFlavor="NA" /> < code codeSystem="local" code="MAG" displayName="MAGNESIUM" /> < statusCode code="completed" /> <effectiveTime value="391804911265" /> <value unit="mg/dL" xsi:type="PQ" value="2.1" /> < referenceRange> <observationRange> <text>1.8-2.4</text> </observationRange> </referenceRange> </observation > </component> </organizer> </entry> <entry> <organizer moodCode= "EVN" classCode="BATTERY"> <templateId root="16.840.1.926909.10..22.4.1 " /> <id nullFlavor="NA" /> <code codeSystem="local" code="2740852" displayName="URINE (CTS IF INDICATED)" /> <statusCode code="completed" /> <component> <observation moodCode="EVN" classCode="OBS"> < templateId root="05.07.840.1.877927.22.4.2" /> <id nullFlavor="NA " /> <code codeSystem="local" code="GLUCOSE " displayName="GLUCOSE " / > <statusCode code="completed" /> <effectiveTime value= "471439575447" /> <value unit="" xsi:type="PQ" value="norm" /> <referenceRange> <observationRange> <text>NORMAL: NEGATIVE</text> </observationRange> </referenceRange> </observation> </component> <component> <observation moodCode ="EVN" classCode="OBS"> <templateId root= "216.840.1.901097.01.08.22.4.2" /> <id nullFlavor="NA" /> < code codeSystem="local" code="WBC " displayName="WBC " /> <statusCode code="completed" /> <effectiveTime value="495824112384" /> < value unit="" xsi:type="PQ" value="5-7" /> <referenceRange> <observationRange> <text>NRG</text> </observationRange> </referenceRange> </observation> </component> < component> <observation moodCode="EVN" classCode="OBS"> < templateId root="216.840.1.072561.01.08.22.4.2" /> <id nullFlavor="NA " /> <code codeSystem="local" code="URINE(CTSIFINDICATED)" displayName= "URINE(CTSIFINDICATED)" /> <statusCode code="completed" /> < effectiveTime value="" /> <value unit="" xsi:type="PQ" value="" /> <referenceRange> <observationRange> <text>NRG</text> </observationRange> </referenceRange> </observation> </component> <component> <observation moodCode="EVN" classCode="OBS"> <templateId root= "216.840.1.957675.10..4.2" /> <id nullFlavor="NA" /> < code codeSystem="local" code="URINECOLLECT" displayName=" URINE COLLECT" /> <statusCode code="completed" /> <effectiveTime value= "" /> <value unit="" xsi:type="PQ" value="UNKNOWN" /> <referenceRange> <observationRange> <text>NRG</text > </observationRange> </referenceRange> </observation > </component> <component> <observation moodCode="EVN" classCode="OBS"> <templateId root="16.840.1.778870.01.08.22.4.2" /> <id nullFlavor="NA" /> <code codeSystem="local" code="COLOR" displayName=" COLOR" /> <statusCode code="completed" /> < effectiveTime value="" /> <value unit="" xsi:type="PQ" value="STRAW" /> <referenceRange> <observationRange> <text>NORMAL:YELLOW</text> </observationRange> </ referenceRange> </observation> </component> <component> <observation moodCode="EVN" classCode="OBS"> <templateId root= "16.840.1.456209.10.4.2" /> <id nullFlavor="NA" /> < code codeSystem="local" code="CLARITY" displayName=" CLARITY" /> < statusCode code="completed" /> <effectiveTime value="" /> <value unit="" xsi:type="PQ" value="CLOUDY" /> <referenceRange > <observationRange> <text>NORMAL:CLEAR</text> </observationRange> </referenceRange> </observation> </ component> <component> <observation moodCode="EVN" classCode="OBS"> <templateId root="216.840.1.413818.10...4.2" /> <id nullFlavor="NA" /> <code codeSystem="local" code="SPGRAVITY" displayName=" SP GRAVITY" /> <statusCode code="completed" /> < effectiveTime value="" /> <value unit="" xsi:type="PQ" value="1.010" /> <referenceRange> <observationRange> <text>NRG</text> </observationRange> </referenceRange > </observation> </component> <component> <observation moodCode="EVN" classCode="OBS"> <templateId root= "16.840.1.112498.10..4.2" /> <id nullFlavor="NA" /> < code codeSystem="local" code="PH" displayName=" PH" /> <statusCode code ="completed" /> <effectiveTime value="" /> <value unit="" xsi:type="PQ" value="8" /> <referenceRange> < observationRange> <text>NORMAL:5 - 8</text> </ observationRange> </referenceRange> </observation> </ component> <component> <observation moodCode="EVN" classCode="OBS"> <templateId root="16.840.1.133868.10.2022.4.2" /> <id nullFlavor="NA" /> <code codeSystem="local" code="LEUKOESTERAS" displayName=" LEUKOESTERAS" /> <statusCode code="completed" /> <effectiveTime value="" /> <value unit="" xsi:type="PQ" value="25 Vineet/uL" /> <referenceRange> <observationRange> <text>NORMAL:NEGATIVE</text> </observationRange> </referenceRange> </observation> </component> <component> <observation moodCode="EVN" classCode="OBS"> <templateId root= "05.07.840.1.289813.1022.4.2" /> <id nullFlavor="NA" /> < code codeSystem="local" code="NITRITE" displayName=" NITRITE" /> < statusCode code="completed" /> <effectiveTime value="" /> <value unit="" xsi:type="PQ" value="neg" /> <referenceRange> <observationRange> <text>NORMAL:NEGATIVE</text> </observationRange> </referenceRange> </observation> </ component> <component> <observation moodCode="EVN" classCode="OBS"> <templateId root="840.1.885269.1022.4.2" /> <id nullFlavor="NA" /> <code codeSystem="local" code="PROTEIN" displayName= " PROTEIN" /> <statusCode code="completed" /> <effectiveTime value="" /> <value unit="" xsi:type="PQ" value="neg" /> <referenceRange> <observationRange> <text>NORMAL: NEGATIVE</text> </observationRange> </referenceRange> </observation> </component> <component> <observation moodCode ="EVN" classCode="OBS"> <templateId root= "05.07.840.1.862144.1022.4.2" /> <id nullFlavor="NA" /> < code codeSystem="local" code="KETONES" displayName=" KETONES" /> < statusCode code="completed" /> <effectiveTime value="" /> <value unit="" xsi:type="PQ" value="neg" /> <referenceRange> <observationRange> <text>NORMAL:NEGATIVE</text> </observationRange> </referenceRange> </observation> </ component> <component> <observation moodCode="EVN" classCode="OBS"> <templateId root="216.840.1.490603.10.22.4.2" /> <id nullFlavor="NA" /> <code codeSystem="local" code="UROBILINOGEN" displayName=" UROBILINOGEN" /> <statusCode code="completed" /> <effectiveTime value="" /> <value unit="" xsi:type="PQ" value="norm" /> <referenceRange> <observationRange> <text>NORMAL:NEGATIVE</text> </observationRange> </ referenceRange> </observation> </component> <component> <observation moodCode="EVN" classCode="OBS"> <templateId root= "05.07.840.1.263427.1022.4.2" /> <id nullFlavor="NA" /> < code codeSystem="local" code="BILIRUBIN" displayName=" BILIRUBIN" /> < statusCode code="completed" /> <effectiveTime value="118819489969" /> <value unit="" xsi:type="PQ" value="neg" /> <referenceRange> <observationRange> <text>NORMAL:NEGATIVE</text> </observationRange> </referenceRange> </observation> </ component> <component> <observation moodCode="EVN" classCode="OBS"> <templateId root="05.07.840.1.273006.1022.4.2" /> <id nullFlavor="NA" /> <code codeSystem="local" code="BLOOD" displayName=" BLOOD" /> <statusCode code="completed" /> <effectiveTime value ="612556739678" /> <value unit="" xsi:type="PQ" value="neg" /> <referenceRange> <observationRange> <text>NORMAL: NEGATIVE</text> </observationRange> </referenceRange> </observation> </component> <component> <observation moodCode ="EVN" classCode="OBS"> <templateId root= "840.1.906657.10.22.4.2" /> <id nullFlavor="NA" /> < code codeSystem="local" code="MICROSCOPIC" displayName=" MICROSCOPIC" /> <statusCode code="completed" /> <effectiveTime value="866168939216" /> <value unit="" xsi:type="PQ" value="SEE BELOW" /> < referenceRange> <observationRange> <text>NRG</text> </observationRange> </referenceRange> </observation> </component> <component> <observation moodCode="EVN" classCode= "OBS"> <templateId root="840.1.310918.1022.4.2" /> < id nullFlavor="NA" /> <code codeSystem="local" code="EPITHELIAL" displayName=" EPITHELIAL" /> <statusCode code="completed" /> < effectiveTime value="436913513652" /> <value unit="" xsi:type="PQ" value=">15 SQ EPI" /> <referenceRange> <observationRange > <text>NRG</text> </observationRange> </ referenceRange> </observation> </component> <component> <observation moodCode="EVN" classCode="OBS"> <templateId root= "840.1.334802.1022.4.2" /> <id nullFlavor="NA" /> < code codeSystem="local" code="BACTERIA" displayName=" BACTERIA" /> < statusCode code="completed" /> <effectiveTime value="" /> <value unit="" xsi:type="PQ" value="MODERA" /> <referenceRange > <observationRange> <text>NRG</text> </ observationRange> </referenceRange> </observation> </ component> <component> <observation moodCode="EVN" classCode="OBS"> <templateId root="840.1.170487.01.08.22.4.2" /> <id nullFlavor="NA" /> <code codeSystem="local" code="CULTURE" displayName= " CULTURE" /> <statusCode code="completed" /> <effectiveTime value="" /> <value unit="" xsi:type="PQ" value="NOT INDICATED" /> <referenceRange> <observationRange> <text>NRG</text> </observationRange> </referenceRange> </observation> </component> <component> <observation moodCode="EVN" classCode="OBS"> <templateId root= "840.1.450120.01.08.22.4.2" /> <id nullFlavor="NA" /> < code codeSystem="local" code="CRYSTALS" displayName=" CRYSTALS" /> < statusCode code="completed" /> <effectiveTime value="" /> <value unit="" xsi:type="PQ" value="SEE BELOW" /> < referenceRange> <observationRange> <text>NRG</text> </observationRange> </referenceRange> </observation> </component> <component> <observation moodCode="EVN" classCode= "OBS"> <templateId root="840.1.173617.22.4.2" /> < id nullFlavor="NA" /> <code codeSystem="local" code="AMORPHOUS" displayName=" AMORPHOUS" /> <statusCode code="completed" /> < effectiveTime value="199108090558" /> <value unit="" xsi:type="PQ" value="FEW" /> <referenceRange> <observationRange> <text>NORMAL: NONE SEEN</text> </observationRange> </ referenceRange> </observation> </component> </organizer> </entry > <entry> <organizer moodCode="EVN" classCode="BATTERY"> <templateId root="16.840.1.306961.10..22.4.1" /> <id nullFlavor="NA" /> <code codeSystem="local" code="KLM812" displayName="[place]" /> <statusCode code="completed" /> <component> <observation moodCode="EVN" classCode="OBS"> <templateId root="16.840.1.131853...4.2" /> <id nullFlavor="NA" /> <code codeSystem="local" code="Mka2498 " displayName="Clue Cells" /> <statusCode code="completed" /> <effectiveTime value="406169939779" /> <value unit="" xsi:type="PQ" value="Not Observed" /> <referenceRange> <observationRange> <text>Not Observed</text> </observationRange> </referenceRange> </observation> </component> <component> <observation moodCode="EVN" classCode="OBS"> <templateId root= "05.07.840.1.645421.10...4.2" /> <id nullFlavor="NA" /> < code codeSystem="local" code="Koo9466" displayName="Trichomonas" /> < statusCode code="completed" /> <effectiveTime value="349205103841" /> <value unit="" xsi:type="PQ" value="Not Observed" /> < referenceRange> <observationRange> <text>Not Observed</ text> </observationRange> </referenceRange> </ observation> </component> <component> <observation moodCode= "EVN" classCode="OBS"> <templateId root="216.840.1.965809.10.20.22.4.2 " /> <id nullFlavor="NA" /> <code codeSystem="local" code= "Sqd9617" displayName="Yeast" /> <statusCode code="completed" /> <effectiveTime value="660348029002" /> <value unit="" xsi:type="PQ " value="Not Observed" /> <referenceRange> <observationRange > <text>Not Observed</text> </observationRange> </referenceRange> </observation> </component> </organizer> </ entry> <entry> <organizer moodCode="EVN" classCode="BATTERY"> < templateId root="216.840.1.805854.10..22.4.1" /> <id nullFlavor="NA" /> <code codeSystem="local" code="454930" displayName="Chlamydia/GC Amplification" /> <statusCode code="completed" /> <component> < observation moodCode="EVN" classCode="OBS"> <templateId root= "216.840.1.624029.10..22.4.2" /> <id nullFlavor="NA" /> < code codeSystem="local" code="620568" displayName="CHLAMYDIA TRACHOMATIS, MELISSA" / > <statusCode code="completed" /> <effectiveTime value= "464750329188" /> <value unit="" xsi:type="PQ" value="NEGATIVE" /> <referenceRange> <observationRange> <text>NEGATIVE </text> </observationRange> </referenceRange> </ observation> </component> <component> <observation moodCode= "EVN" classCode="OBS"> <templateId root="05.07.840.1.027203.10..22.4.2 " /> <id nullFlavor="NA" /> <code codeSystem="local" code= "173205" displayName="NEISSERIA GONORRHOEAE, MELISSA" /> <statusCode code= "completed" /> <effectiveTime value="882566470381" /> <value unit="" xsi:type="PQ" value="NEGATIVE" /> <referenceRange> < observationRange> <text>NEGATIVE</text> </ observationRange> </referenceRange> </observation> </ component> </organizer> </entry> <entry> <organizer moodCode="EVN" classCode="BATTERY"> <templateId root="05.07.840.1.128142.10..22.4.1" /> <id nullFlavor="NA" /> <code codeSystem="local" code="017417" displayName="Chlamydia/GC Amplification" /> <statusCode code="completed" / > <component> <observation moodCode="EVN" classCode="OBS"> <templateId root="05.07.840.1.992417.10..22.4.2" /> <id nullFlavor="NA " /> <code codeSystem="local" code="493742" displayName="Chlamydia trachomatis, MELISSA" /> <statusCode code="completed" /> < effectiveTime value="547832350855" /> <value unit="" xsi:type="PQ" value="Negative" /> <referenceRange> <observationRange> <text>Negative</text> </observationRange> </ referenceRange> </observation> </component> <component> <observation moodCode="EVN" classCode="OBS"> <templateId root= "05.07.840.1.126087.10.4.2" /> <id nullFlavor="NA" /> < code codeSystem="local" code="520069" displayName="Neisseria gonorrhoeae, MELISSA" / > <statusCode code="completed" /> <effectiveTime value= "407671562069" /> <value unit="" xsi:type="PQ" value="Negative" /> <referenceRange> <observationRange> <text>Negative </text> </observationRange> </referenceRange> </ observation> </component> </organizer> </entry> <entry> <organizer moodCode="EVN" classCode="BATTERY"> <templateId root= "216.840.1.540980.01.08.224.1" /> <id nullFlavor="NA" /> <code codeSystem="local" code="448674" displayName="Ova + Parasite Exam" /> < statusCode code="completed" /> <component> <observation moodCode= "EVN" classCode="OBS"> <templateId root="216.840.1.799634.01.08.224.2 " /> <id nullFlavor="NA" /> <code codeSystem="local" code= "165965" displayName="OVA + PARASITE EXAM" /> <statusCode code= "completed" /> <effectiveTime value="407878200306" /> <value unit="" xsi:type="PQ" value="FINAL REPORT" /> <referenceRange> <observationRange> <text /> </observationRange> </referenceRange> </observation> </component> <component > <observation moodCode="EVN" classCode="OBS"> <templateId root= "216.840.1.983429.01.08.22.4.2" /> <id nullFlavor="NA" /> < code codeSystem="local" code="149661" displayName="RESULT 1" /> < statusCode code="completed" /> <effectiveTime value="852556821592" /> <value unit="" xsi:type="PQ" value="NO OVA, CYSTS, OR PARASITES SEEN." /> <referenceRange> <observationRange> <text / > </observationRange> </referenceRange> </observation > </component> </organizer> </entry> <entry> <organizer moodCode= "EVN" classCode="BATTERY"> <templateId root="216.840.1.666258.10..22.4.1 " /> <id nullFlavor="NA" /> <code codeSystem="local" code="92293-0" displayName="Complete urinalysis with reflex to culture" /> <statusCode code="completed" /> <component> <observation moodCode="EVN" classCode="OBS"> <templateId root="216.840.1.244784.10...4.2" /> <id nullFlavor="NA" /> <code codeSystem="local" code="5778-6" displayName="Urine color determination" /> <statusCode code="completed " /> <effectiveTime value="" /> <value unit="" xsi :type="PQ" value="YELLOW" /> <referenceRange> < observationRange> <text>NRG</text> </observationRange> </referenceRange> </observation> </component> < component> <observation moodCode="EVN" classCode="OBS"> < templateId root="216.840.1.508092.10..22.4.2" /> <id nullFlavor="NA " /> <code codeSystem="local" code="74277-4" displayName="Urine clarity determination" /> <statusCode code="completed" /> < effectiveTime value="" /> <value unit="" xsi:type="PQ" value="CLEAR" /> <referenceRange> <observationRange> <text>NRG</text> </observationRange> </referenceRange > </observation> </component> <component> <observation moodCode="EVN" classCode="OBS"> <templateId root= "05.07.840.1.125779.10.20.22.4.2" /> <id nullFlavor="NA" /> < code codeSystem="local" code="5803-2" displayName="Urine pH measurement by test strip" /> <statusCode code="completed" /> <effectiveTime value ="211166094126" /> <value unit="" xsi:type="PQ" value="6" /> < referenceRange> <observationRange> <text>5-9</text> </observationRange> </referenceRange> </observation> </component> <component> <observation moodCode="EVN" classCode= "OBS"> <templateId root="840.1.110588.10.2022.4.2" /> < id nullFlavor="NA" /> <code codeSystem="local" code="5811-5" displayName="Specific gravity of urine by test strip" /> <statusCode code="completed" /> <effectiveTime value="518129696689" /> < value unit="" xsi:type="PQ" value="1.020" /> <referenceRange> <observationRange> <text>1.016-1.022</text> </ observationRange> </referenceRange> </observation> </ component> <component> <observation moodCode="EVN" classCode="OBS"> <templateId root="05.07.840.1.130651.10.20.22.4.2" /> <id nullFlavor="NA" /> <code codeSystem="local" code="29666-6" displayName= "Urine protein assay by test strip, semi-quantitative" /> <statusCode code="completed" /> <effectiveTime value="373293859864" /> < value unit="" xsi:type="PQ" value="1+" /> <interpretationCode codeSystem="local" code="*" /> <referenceRange> < observationRange> <text>NEGATIVE</text> </ observationRange> </referenceRange> </observation> </ component> <component> <observation moodCode="EVN" classCode="OBS"> <templateId root="216.840.1.326213.10.20.22.4.2" /> <id nullFlavor="NA" /> <code codeSystem="local" code="86035-7" displayName= "Urine glucose detection by automated test strip" /> <statusCode code= "completed" /> <effectiveTime value="" /> <value unit="" xsi:type="PQ" value="NEGATIVE" /> <referenceRange> < observationRange> <text>NEGATIVE</text> </ observationRange> </referenceRange> </observation> </ component> <component> <observation moodCode="EVN" classCode="OBS"> <templateId root="16.840.1.982893.10.20.22.4.2" /> <id nullFlavor="NA" /> <code codeSystem="local" code="32734-3" displayName= "Erythrocytes detection in urine sediment by light microscopy" /> < statusCode code="completed" /> <effectiveTime value="888699230031" /> <value unit="" xsi:type="PQ" value="3+" /> < interpretationCode codeSystem="local" code="*" /> <referenceRange> <observationRange> <text>NEGATIVE</text> </ observationRange> </referenceRange> </observation> </ component> <component> <observation moodCode="EVN" classCode="OBS"> <templateId root="216.840.1.413021.10..22.4.2" /> <id nullFlavor="NA" /> <code codeSystem="local" code="27477-2" displayName= "Urine ketones detection by automated test strip" /> <statusCode code= "completed" /> <effectiveTime value="" /> <value unit="" xsi:type="PQ" value="2+" /> <interpretationCode codeSystem= "local" code="*" /> <referenceRange> <observationRange> <text>NEGATIVE</text> </observationRange> </ referenceRange> </observation> </component> <component> <observation moodCode="EVN" classCode="OBS"> <templateId root= "16.840.1.538910.01.08.22.4.2" /> <id nullFlavor="NA" /> < code codeSystem="local" code="5802-4" displayName="Urine nitrite detection by test strip" /> <statusCode code="completed" /> <effectiveTime value="" /> <value unit="" xsi:type="PQ" value="NEGATIVE" / > <referenceRange> <observationRange> <text> NEGATIVE</text> </observationRange> </referenceRange> </observation> </component> <component> <observation moodCode ="EVN" classCode="OBS"> <templateId root= "16.840.1.652109.10..22.4.2" /> <id nullFlavor="NA" /> < code codeSystem="local" code="5770-3" displayName="Urine total bilirubin detection by test strip" /> <statusCode code="completed" /> < effectiveTime value="" /> <value unit="" xsi:type="PQ" value="NEGATIVE" /> <referenceRange> <observationRange> <text>NEGATIVE</text> </observationRange> </ referenceRange> </observation> </component> <component> <observation moodCode="EVN" classCode="OBS"> <templateId root= "05.07.840.1.128416.10.20.22.4.2" /> <id nullFlavor="NA" /> < code codeSystem="local" code="87456-9" displayName="Urine urobilinogen measurement by automated test strip (mass/volume)" /> <statusCode code= "completed" /> <effectiveTime value="364593661346" /> <value unit="" xsi:type="PQ" value="NORMAL" /> <referenceRange> < observationRange> <text>NORMAL</text> </observationRange > </referenceRange> </observation> </component> < component> <observation moodCode="EVN" classCode="OBS"> < templateId root="05.07.840.1.331697.10..4.2" /> <id nullFlavor="NA " /> <code codeSystem="local" code="5799-2" displayName="Urine leukocyte esterase detection by dipstick" /> <statusCode code= "completed" /> <effectiveTime value="382859150622" /> <value unit="" xsi:type="PQ" value="1+" /> <interpretationCode codeSystem= "local" code="*" /> <referenceRange> <observationRange> <text>NEGATIVE</text> </observationRange> </ referenceRange> </observation> </component> <component> <observation moodCode="EVN" classCode="OBS"> <templateId root= "05.07.840.1.554506.10.20.22.4.2" /> <id nullFlavor="NA" /> < code codeSystem="local" code="30675-6" displayName="Automated urine sediment erythrocyte count by microscopy (number/high power field)" /> < statusCode code="completed" /> <effectiveTime value="" /> <value unit="[HPF]" xsi:type="PQ" value="" /> < interpretationCode codeSystem="local" code="*" /> <referenceRange> <observationRange> <text>NRG</text> </ observationRange> </referenceRange> </observation> </ component> <component> <observation moodCode="EVN" classCode="OBS"> <templateId root="2.16.840.1.645982.10..22.4.2" /> <id nullFlavor="NA" /> <code codeSystem="local" code="5821-4" displayName= "Automated urine sediment leukocyte count by microscopy (number/high power field )" /> <statusCode code="completed" /> <effectiveTime value= "" /> <value unit="[HPF]" xsi:type="PQ" value="" /> <referenceRange> <observationRange> <text>NRG</text> </observationRange> </referenceRange> </observation > </component> <component> <observation moodCode="EVN" classCode="OBS"> <templateId root="2.16.840.1.400205.10..22.4.2" /> <id nullFlavor="NA" /> <code codeSystem="local" code="63752-6 " displayName="Bacteria detection in urine sediment by light microscopy" /> <statusCode code="completed" /> <effectiveTime value= "" /> <value unit="" xsi:type="PQ" value="FEW" /> <interpretationCode codeSystem="local" code="*" /> <referenceRange> <observationRange> <text>NRG</text> </ observationRange> </referenceRange> </observation> </ component> <component> <observation moodCode="EVN" classCode="OBS"> <templateId root="216.840.1.644214.10.22.4.2" /> <id nullFlavor="NA" /> <code codeSystem="local" code="88964-6" displayName= "Squamous epithelial cells detection in urine sediment by light microscopy" /> <statusCode code="completed" /> <effectiveTime value= "577087860723" /> <value unit="" xsi:type="PQ" value="25-50" /> <interpretationCode codeSystem="local" code="*" /> <referenceRange> <observationRange> <text>NRG</text> </ observationRange> </referenceRange> </observation> </ component> <component> <observation moodCode="EVN" classCode="OBS"> <templateId root="16.840.1.114529.10.4.2" /> <id nullFlavor="NA" /> <code codeSystem="local" code="80017-9" displayName= "Crystals detection in urine sediment by light microscopy" /> < statusCode code="completed" /> <effectiveTime value="886338297625" /> <value unit="" xsi:type="PQ" value="NONE" /> <referenceRange> <observationRange> <text>NRG</text> </ observationRange> </referenceRange> </observation> </ component> <component> <observation moodCode="EVN" classCode="OBS"> <templateId root="216.840.1.492459.10.22.4.2" /> <id nullFlavor="NA" /> <code codeSystem="local" code="53431-3" displayName= "Casts detection in urine sediment by light microscopy" /> <statusCode code="completed" /> <effectiveTime value="188908188965" /> < value unit="" xsi:type="PQ" value="NONE" /> <referenceRange> <observationRange> <text>NRG</text> </observationRange > </referenceRange> </observation> </component> < component> <observation moodCode="EVN" classCode="OBS"> < templateId root="216.840.1.840471.10..4.2" /> <id nullFlavor="NA " /> <code codeSystem="local" code="8247-9" displayName="Mucus detection in urine sediment by light microscopy" /> <statusCode code= "completed" /> <effectiveTime value="206286211308" /> <value unit="" xsi:type="PQ" value="MODERATE" /> <interpretationCode codeSystem="local" code="*" /> <referenceRange> < observationRange> <text>NRG</text> </observationRange> </referenceRange> </observation> </component> < component> <observation moodCode="EVN" classCode="OBS"> < templateId root="216.840.1.669296.10..4.2" /> <id nullFlavor="NA " /> <code codeSystem="local" code="98125-0" displayName="Complete urinalysis with reflex to culture" /> <statusCode code="completed" /> <effectiveTime value="043526330260" /> <value unit="" xsi:type ="PQ" value="NO" /> <referenceRange> <observationRange> <text>NRG</text> </observationRange> </ referenceRange> </observation> </component> </organizer> </entry > <entry> <organizer moodCode="EVN" classCode="BATTERY"> <templateId root="216.840.1.828790.10..22.4.1" /> <id nullFlavor="NA" /> <code codeSystem="local" code="34214-4" displayName="Complete blood count (CBC) with automated white blood cell (WBC) differential" /> <statusCode code= "completed" /> <component> <observation moodCode="EVN" classCode= "OBS"> <templateId root="2.16.840.1.903347.10..22.4.2" /> < id nullFlavor="NA" /> <code codeSystem="local" code="6690-2" displayName="Blood leukocytes automated count (number/volume)" /> < statusCode code="completed" /> <effectiveTime value="401001521597" /> <value unit="10*3/uL" xsi:type="PQ" value="10.4" /> < referenceRange> <observationRange> <text>4.3-11.0</text > </observationRange> </referenceRange> </observation > </component> <component> <observation moodCode="EVN" classCode="OBS"> <templateId root="2.16.840.1.792034...22.4.2" /> <id nullFlavor="NA" /> <code codeSystem="local" code="789-8" displayName="Blood erythrocytes automated count (number/volume)" /> < statusCode code="completed" /> <effectiveTime value="386758501873" /> <value unit="10*6/uL" xsi:type="PQ" value="4.34" /> < interpretationCode codeSystem="local" code="" /> <referenceRange> <observationRange> <text>4.35-5.85</text> </ observationRange> </referenceRange> </observation> </ component> <component> <observation moodCode="EVN" classCode="OBS"> <templateId root="2.16.840.1.758011.10.20.22.4.2" /> <id nullFlavor="NA" /> <code codeSystem="local" code="43980-5" displayName= "Venous blood hemoglobin measurement (mass/volume)" /> <statusCode code ="completed" /> <effectiveTime value="643010967504" /> <value unit="g/dL" xsi:type="PQ" value="12.9" /> <referenceRange> < observationRange> <text>11.5-16.0</text> </ observationRange> </referenceRange> </observation> </ component> <component> <observation moodCode="EVN" classCode="OBS"> <templateId root="216.840.1.669360.10..22.4.2" /> <id nullFlavor="NA" /> <code codeSystem="local" code="77311-6" displayName= "Blood hematocrit (volume fraction)" /> <statusCode code="completed" / > <effectiveTime value="939196862528" /> <value unit="%" xsi:type="PQ" value="38" /> <referenceRange> < observationRange> <text>35-52</text> </observationRange > </referenceRange> </observation> </component> < component> <observation moodCode="EVN" classCode="OBS"> < templateId root="16.840.1.285517.10.20.22.4.2" /> <id nullFlavor="NA " /> <code codeSystem="local" code="787-2" displayName="Automated erythrocyte mean corpuscular volume" /> <statusCode code="completed" / > <effectiveTime value="693495078119" /> <value unit="[foz_us] " xsi:type="PQ" value="86" /> <referenceRange> < observationRange> <text>80-99</text> </observationRange > </referenceRange> </observation> </component> < component> <observation moodCode="EVN" classCode="OBS"> < templateId root="216.840.1.469050.10.20.22.4.2" /> <id nullFlavor="NA " /> <code codeSystem="local" code="785-6" displayName="Automated erythrocyte mean corpuscular hemoglobin (mass per erythrocyte)" /> < statusCode code="completed" /> <effectiveTime value="557456052663" /> <value unit="pg" xsi:type="PQ" value="30" /> <referenceRange> <observationRange> <text>25-34</text> </ observationRange> </referenceRange> </observation> </ component> <component> <observation moodCode="EVN" classCode="OBS"> <templateId root="05.07.840.1.399294.10...4.2" /> <id nullFlavor="NA" /> <code codeSystem="local" code="786-4" displayName= "Automated erythrocyte mean corpuscular hemoglobin concentration measurement ( mass/volume)" /> <statusCode code="completed" /> < effectiveTime value="712217249605" /> <value unit="g/dL" xsi:type="PQ" value="34" /> <referenceRange> <observationRange> <text>32-36</text> </observationRange> </referenceRange > </observation> </component> <component> <observation moodCode="EVN" classCode="OBS"> <templateId root= "16.840.1.975039.10.20.22.4.2" /> <id nullFlavor="NA" /> < code codeSystem="local" code="788-0" displayName="Automated erythrocyte distribution width ratio" /> <statusCode code="completed" /> < effectiveTime value="628279189089" /> <value unit="%" xsi:type="PQ " value="12.0" /> <referenceRange> <observationRange> <text>10.0-14.5</text> </observationRange> </ referenceRange> </observation> </component> <component> <observation moodCode="EVN" classCode="OBS"> <templateId root= "2.16.840.1.554011.10.20.22.4.2" /> <id nullFlavor="NA" /> < code codeSystem="local" code="777-3" displayName="Automated blood platelet count (count/volume)" /> <statusCode code="completed" /> < effectiveTime value="378807039698" /> <value unit="10*3/uL" xsi:type= "PQ" value="230" /> <referenceRange> <observationRange> <text>130-400</text> </observationRange> </ referenceRange> </observation> </component> <component> <observation moodCode="EVN" classCode="OBS"> <templateId root= "2.16.840.1.488995.10.20.22.4.2" /> <id nullFlavor="NA" /> < code codeSystem="local" code="66365-8" displayName="Automated blood platelet mean volume measurement" /> <statusCode code="completed" /> < effectiveTime value="563413019254" /> <value unit="[foz_us]" xsi:type= "PQ" value="9.8" /> <referenceRange> <observationRange> <text>7.4-10.4</text> </observationRange> </ referenceRange> </observation> </component> <component> <observation moodCode="EVN" classCode="OBS"> <templateId root= "2.16.840.1.735049.10.20.22.4.2" /> <id nullFlavor="NA" /> < code codeSystem="local" code="770-8" displayName="Automated blood neutrophils/ 100 leukocytes" /> <statusCode code="completed" /> < effectiveTime value="918577243811" /> <value unit="%" xsi:type="PQ " value="74" /> <referenceRange> <observationRange> <text>42-75</text> </observationRange> </ referenceRange> </observation> </component> <component> <observation moodCode="EVN" classCode="OBS"> <templateId root= "2.16.840.1.112968.10..22.4.2" /> <id nullFlavor="NA" /> < code codeSystem="local" code="736-9" displayName="Automated blood lymphocytes/ 100 leukocytes" /> <statusCode code="completed" /> < effectiveTime value="930168913467" /> <value unit="%" xsi:type="PQ " value="18" /> <referenceRange> <observationRange> <text>12-44</text> </observationRange> </ referenceRange> </observation> </component> <component> <observation moodCode="EVN" classCode="OBS"> <templateId root= "2.16.840.1.546719.10.20.22.4.2" /> <id nullFlavor="NA" /> < code codeSystem="local" code="86984-7" displayName="Blood monocytes/100 leukocytes" /> <statusCode code="completed" /> <effectiveTime value="578373350684" /> <value unit="%" xsi:type="PQ" value="7" /> <referenceRange> <observationRange> <text>0-12 </text> </observationRange> </referenceRange> </ observation> </component> <component> <observation moodCode= "EVN" classCode="OBS"> <templateId root="2.16.840.1.179205.10.20.22.4.2 " /> <id nullFlavor="NA" /> <code codeSystem="local" code="713 -8" displayName="Automated blood eosinophils/100 leukocytes" /> < statusCode code="completed" /> <effectiveTime value="355889634818" /> <value unit="%" xsi:type="PQ" value="0" /> <referenceRange > <observationRange> <text>0-10</text> </ observationRange> </referenceRange> </observation> </ component> <component> <observation moodCode="EVN" classCode="OBS"> <templateId root="2.16.840.1.107933.10..22.4.2" /> <id nullFlavor="NA" /> <code codeSystem="local" code="706-2" displayName= "Automated blood basophils/100 leukocytes" /> <statusCode code= "completed" /> <effectiveTime value="152184223515" /> <value unit="%" xsi:type="PQ" value="0" /> <referenceRange> < observationRange> <text>0-10</text> </observationRange> </referenceRange> </observation> </component> < component> <observation moodCode="EVN" classCode="OBS"> < templateId root="2.16.840.1.619096.10.20.22.4.2" /> <id nullFlavor="NA " /> <code codeSystem="local" code="751-8" displayName="Blood neutrophils automated count (number/volume)" /> <statusCode code= "completed" /> <effectiveTime value="767292593832" /> <value unit="10*3" xsi:type="PQ" value="7.7" /> <referenceRange> < observationRange> <text>1.8-7.8</text> </ observationRange> </referenceRange> </observation> </ component> <component> <observation moodCode="EVN" classCode="OBS"> <templateId root="05.07.840.1.866564.10.20.22.4.2" /> <id nullFlavor="NA" /> <code codeSystem="local" code="731-0" displayName= "Blood lymphocytes automated count (number/volume)" /> <statusCode code ="completed" /> <effectiveTime value="928395308640" /> <value unit="10*3" xsi:type="PQ" value="1.9" /> <referenceRange> < observationRange> <text>1.0-4.0</text> </ observationRange> </referenceRange> </observation> </ component> <component> <observation moodCode="EVN" classCode="OBS"> <templateId root="05.07.840.1.613503.10.20.22.4.2" /> <id nullFlavor="NA" /> <code codeSystem="local" code="742-7" displayName= "Blood monocytes automated count (number/volume)" /> <statusCode code= "completed" /> <effectiveTime value="243639608984" /> <value unit="10*3" xsi:type="PQ" value="0.7" /> <referenceRange> < observationRange> <text>0.0-1.0</text> </ observationRange> </referenceRange> </observation> </ component> <component> <observation moodCode="EVN" classCode="OBS"> <templateId root="840.1.524519.10.4.2" /> <id nullFlavor="NA" /> <code codeSystem="local" code="711-2" displayName= "Automated eosinophil count" /> <statusCode code="completed" /> <effectiveTime value="589871635359" /> <value unit="10*3/uL" xsi: type="PQ" value="0.0" /> <referenceRange> <observationRange > <text>0.0-0.3</text> </observationRange> </ referenceRange> </observation> </component> <component> <observation moodCode="EVN" classCode="OBS"> <templateId root= "05.07.840.1.220596.01.08.22.4.2" /> <id nullFlavor="NA" /> < code codeSystem="local" code="704-7" displayName="Automated blood basophil count (count/volume)" /> <statusCode code="completed" /> < effectiveTime value="507533377126" /> <value unit="10*3/uL" xsi:type= "PQ" value="0.0" /> <referenceRange> <observationRange> <text>0.0-0.1</text> </observationRange> </ referenceRange> </observation> </component> </organizer> </entry > <entry> <organizer moodCode="EVN" classCode="BATTERY"> <templateId root="16.840.1.253609.10.4.1" /> <id nullFlavor="NA" /> <code codeSystem="local" code="58736-6" displayName="Comprehensive metabolic panel" / > <statusCode code="completed" /> <component> <observation moodCode="EVN" classCode="OBS"> <templateId root= "05.07.840.1.221263.10.20.22.4.2" /> <id nullFlavor="NA" /> < code codeSystem="local" code="2951-2" displayName="Serum or plasma sodium measurement (moles/volume)" /> <statusCode code="completed" /> <effectiveTime value="569065822504" /> <value unit="mmol/L" xsi:type= "PQ" value="138" /> <referenceRange> <observationRange> <text>135-145</text> </observationRange> </ referenceRange> </observation> </component> <component> <observation moodCode="EVN" classCode="OBS"> <templateId root= "216.840.1.325396.10.22.4.2" /> <id nullFlavor="NA" /> < code codeSystem="local" code="2823-3" displayName="Serum or plasma potassium measurement (moles/volume)" /> <statusCode code="completed" /> <effectiveTime value="437744411003" /> <value unit="mmol/L" xsi:type= "PQ" value="3.4" /> <interpretationCode codeSystem="local" code="" / > <referenceRange> <observationRange> <text>3.6 -5.0</text> </observationRange> </referenceRange> </ observation> </component> <component> <observation moodCode= "EVN" classCode="OBS"> <templateId root="16.840.1.936972.10..22.4.2 " /> <id nullFlavor="NA" /> <code codeSystem="local" code= "2075-0" displayName="Serum or plasma chloride measurement (moles/volume)" /> <statusCode code="completed" /> <effectiveTime value= "223189575556" /> <value unit="mmol/L" xsi:type="PQ" value="104" /> <referenceRange> <observationRange> <text>98-107< /text> </observationRange> </referenceRange> </ observation> </component> <component> <observation moodCode= "EVN" classCode="OBS"> <templateId root="216.840.1.062109.10.20.22.4.2 " /> <id nullFlavor="NA" /> <code codeSystem="local" code= "2027-11" displayName="Carbon dioxide" /> <statusCode code="completed" / > <effectiveTime value="441216913778" /> <value unit="mmol/L" xsi:type="PQ" value="24" /> <referenceRange> < observationRange> <text>21-32</text> </observationRange > </referenceRange> </observation> </component> < component> <observation moodCode="EVN" classCode="OBS"> < templateId root="05.07.840.1.511664.10.20.22.4.2" /> <id nullFlavor="NA " /> <code codeSystem="local" code="83147-7" displayName="Serum or plasma anion gap determination (moles/volume)" /> <statusCode code= "completed" /> <effectiveTime value="795417766950" /> <value unit="mmol/L" xsi:type="PQ" value="10" /> <referenceRange> < observationRange> <text>5-14</text> </observationRange> </referenceRange> </observation> </component> < component> <observation moodCode="EVN" classCode="OBS"> < templateId root="05.07.840.1.025310.10.20.22.4.2" /> <id nullFlavor="NA " /> <code codeSystem="local" code="3094-0" displayName="Serum or plasma urea nitrogen measurement (mass/volume)" /> <statusCode code= "completed" /> <effectiveTime value="010236303611" /> <value unit="mg/dL" xsi:type="PQ" value="14" /> <referenceRange> < observationRange> <text>7-18</text> </observationRange> </referenceRange> </observation> </component> < component> <observation moodCode="EVN" classCode="OBS"> < templateId root="216.840.1.951032.10.20.22.4.2" /> <id nullFlavor="NA " /> <code codeSystem="local" code="2160-0" displayName="Serum or plasma creatinine measurement (mass/volume)" /> <statusCode code= "completed" /> <effectiveTime value="497899260175" /> <value unit="mg/dL" xsi:type="PQ" value="0.86" /> <referenceRange> <observationRange> <text>0.60-1.30</text> </ observationRange> </referenceRange> </observation> </ component> <component> <observation moodCode="EVN" classCode="OBS"> <templateId root="05.07.840.1.736842.10.20.22.4.2" /> <id nullFlavor="NA" /> <code codeSystem="local" code="3097-3" displayName= "Serum or plasma urea nitrogen/creatinine mass ratio" /> <statusCode code="completed" /> <effectiveTime value="115808186285" /> < value unit="" xsi:type="PQ" value="16" /> <referenceRange> < observationRange> <text>NRG</text> </observationRange> </referenceRange> </observation> </component> < component> <observation moodCode="EVN" classCode="OBS"> < templateId root="840.1.041637.10.20.22.4.2" /> <id nullFlavor="NA " /> <code codeSystem="local" code="27123-2" displayName="Serum or plasma creatinine measurement with calculation of estimated glomerular filtration rate" /> <statusCode code="completed" /> < effectiveTime value="912355098597" /> <value unit="" xsi:type="PQ" value=">" /> <referenceRange> <observationRange> <text>NRG</text> </observationRange> </referenceRange > </observation> </component> <component> <observation moodCode="EVN" classCode="OBS"> <templateId root= "216.840.1.530019.10..22.4.2" /> <id nullFlavor="NA" /> < code codeSystem="local" code="2345-7" displayName="Serum or plasma glucose measurement (mass/volume)" /> <statusCode code="completed" /> <effectiveTime value="390753276549" /> <value unit="mg/dL" xsi:type="PQ " value="78" /> <referenceRange> <observationRange> <text>70-105</text> </observationRange> </ referenceRange> </observation> </component> <component> <observation moodCode="EVN" classCode="OBS"> <templateId root= "16.840.1.808061.10.20.22.4.2" /> <id nullFlavor="NA" /> < code codeSystem="local" code="15547-8" displayName="Serum or plasma calcium measurement (mass/volume)" /> <statusCode code="completed" /> <effectiveTime value="448413657761" /> <value unit="mg/dL" xsi:type="PQ " value="8.8" /> <referenceRange> <observationRange> <text>8.5-10.1</text> </observationRange> </ referenceRange> </observation> </component> <component> <observation moodCode="EVN" classCode="OBS"> <templateId root= "216.840.1.011481.10.20.22.4.2" /> <id nullFlavor="NA" /> < code codeSystem="local" code="1974-04" displayName="Serum or plasma total bilirubin measurement (mass/volume)" /> <statusCode code="completed" / > <effectiveTime value="811779446109" /> <value unit="mg/dL" xsi:type="PQ" value="1.7" /> <interpretationCode codeSystem="local" code="" /> <referenceRange> <observationRange> <text>0.1-1.0</text> </observationRange> </referenceRange > </observation> </component> <component> <observation moodCode="EVN" classCode="OBS"> <templateId root= "16.840.1.474959.10...4.2" /> <id nullFlavor="NA" /> < code codeSystem="local" code="6768-6" displayName="Serum or plasma alkaline phosphatase measurement (enzymatic activity/volume)" /> <statusCode code="completed" /> <effectiveTime value="435658497871" /> < value unit="U/L" xsi:type="PQ" value="53" /> <referenceRange> <observationRange> <text>40-136</text> </ observationRange> </referenceRange> </observation> </ component> <component> <observation moodCode="EVN" classCode="OBS"> <templateId root="216.840.1.173710.10.20.22.4.2" /> <id nullFlavor="NA" /> <code codeSystem="local" code="192" displayName= "Serum or plasma aspartate aminotransferase measurement (enzymatic activity/ volume)" /> <statusCode code="completed" /> <effectiveTime value="097275300262" /> <value unit="U/L" xsi:type="PQ" value="15" /> <referenceRange> <observationRange> <text>5-34< /text> </observationRange> </referenceRange> </ observation> </component> <component> <observation moodCode= "EVN" classCode="OBS"> <templateId root="2.16.840.1.291226.10.20.22.4.2 " /> <id nullFlavor="NA" /> <code codeSystem="local" code= "17404-27" displayName="Serum or plasma alanine aminotransferase measurement ( enzymatic activity/volume)" /> <statusCode code="completed" /> <effectiveTime value="924220953095" /> <value unit="U/L" xsi:type="PQ " value="15" /> <referenceRange> <observationRange> <text>0-55</text> </observationRange> </referenceRange > </observation> </component> <component> <observation moodCode="EVN" classCode="OBS"> <templateId root= "2.16.840.1.175268.10.20.22.4.2" /> <id nullFlavor="NA" /> < code codeSystem="local" code="2885-2" displayName="Serum or plasma protein measurement (mass/volume)" /> <statusCode code="completed" /> <effectiveTime value="317449949734" /> <value unit="g/dL" xsi:type="PQ " value="6.7" /> <referenceRange> <observationRange> <text>6.4-8.2</text> </observationRange> </ referenceRange> </observation> </component> <component> <observation moodCode="EVN" classCode="OBS"> <templateId root= "2.16.840.1.268576.10..22.4.2" /> <id nullFlavor="NA" /> < code codeSystem="local" code="1751-7" displayName="Serum or plasma albumin measurement (mass/volume)" /> <statusCode code="completed" /> <effectiveTime value="740141373554" /> <value unit="g/dL" xsi:type="PQ " value="4.0" /> <referenceRange> <observationRange> <text>3.2-4.5</text> </observationRange> </ referenceRange> </observation> </component> </organizer> </entry > <entry> <organizer moodCode="EVN" classCode="BATTERY"> <templateId root="2.16.840.1.737927.10.20.22.4.1" /> <id nullFlavor="NA" /> <code codeSystem="local" code="3040-3" displayName="Lipase" /> <statusCode code= "completed" /> <component> <observation moodCode="EVN" classCode= "OBS"> <templateId root="2.16.840.1.053289.10.20.22.4.2" /> < id nullFlavor="NA" /> <code codeSystem="local" code="3040-3" displayName="Lipase" /> <statusCode code="completed" /> < effectiveTime value="570312508313" /> <value unit="U/L" xsi:type="PQ" value="23" /> <referenceRange> <observationRange> <text>8-78</text> </observationRange> </referenceRange> </observation> </component> </organizer> </entry> <entry> < organizer moodCode="EVN" classCode="BATTERY"> <templateId root= "16.840.1.790533.10..22.4.1" /> <id nullFlavor="NA" /> <code codeSystem="local" code="23914-5" displayName="Serum or plasma choriogonadotropin measurement (units/volume)" /> <statusCode code= "completed" /> <component> <observation moodCode="EVN" classCode= "OBS"> <templateId root="05.07.840.1.649118.10.22.4.2" /> < id nullFlavor="NA" /> <code codeSystem="local" code="56149-3" displayName="Serum or plasma choriogonadotropin measurement (units/volume)" /> <statusCode code="completed" /> <effectiveTime value= "034020509998" /> <value unit="m[iU]/mL" xsi:type="PQ" value="402" /> <interpretationCode codeSystem="local" code="" /> < referenceRange> <observationRange> <text><5</text> </observationRange> </referenceRange> </observation> </component> </organizer> </entry> <entry> <organizer moodCode="EVN " classCode="BATTERY"> <templateId root="05.07.840.1.531576.10..4.1" / > <id nullFlavor="NA" /> <code codeSystem="local" code="06872-8" displayName="Serum or plasma choriogonadotropin measurement (units/volume)" /> <statusCode code="completed" /> <component> <observation moodCode="EVN" classCode="OBS"> <templateId root= "216.840.1.519221.10..22.4.2" /> <id nullFlavor="NA" /> < code codeSystem="local" code="96324-1" displayName="Serum or plasma choriogonadotropin measurement (units/volume)" /> <statusCode code= "completed" /> <effectiveTime value="247152130308" /> <value unit="m[iU]/mL" xsi:type="PQ" value="149" /> <interpretationCode codeSystem="local" code="" /> <referenceRange> < observationRange> <text><5</text> </observationRange > </referenceRange> </observation> </component> </ organizer> </entry> <entry> <organizer moodCode="EVN" classCode="BATTERY"> <templateId root="2.16.840.1.733420.10..22.4.1" /> <id nullFlavor= "NA" /> <code codeSystem="local" code="70057-3" displayName="Influenza virus A and B antigen detection" /> <statusCode code="completed" /> < component> <observation moodCode="EVN" classCode="OBS"> < templateId root="2.16.840.1.944714.10..22.4.2" /> <id nullFlavor="NA " /> <code codeSystem="local" code="FLURESULT" displayName="FLU RESULT " /> <statusCode code="completed" /> <effectiveTime value= "095841606030" /> <value unit="" xsi:type="PQ" value="NEGATIVE FOR INFLUENZA A AND B ANTIGENS BY IA" /> <referenceRange> < observationRange> <text>NRG</text> </observationRange> </referenceRange> </observation> </component> </ organizer> </entry> <entry> <organizer moodCode="EVN" classCode="BATTERY"> <templateId root="2.16.840.1.023315.10..22.4.1" /> <id nullFlavor= "NA" /> <code codeSystem="local" code="74233-6" displayName="Serum or plasma choriogonadotropin measurement (units/volume)" /> <statusCode code= "completed" /> <component> <observation moodCode="EVN" classCode= "OBS"> <templateId root="2.16.840.1.228505.10.20.22.4.2" /> < id nullFlavor="NA" /> <code codeSystem="local" code="36506-8" displayName="Serum or plasma choriogonadotropin measurement (units/volume)" /> <statusCode code="completed" /> <effectiveTime value= "687681425898" /> <value unit="m[iU]/mL" xsi:type="PQ" value="36" /> <interpretationCode codeSystem="local" code="" /> < referenceRange> <observationRange> <text><5</text> </observationRange> </referenceRange> </observation> </component> </organizer> </entry></section> Encounters ACCT No. Visit Date/Time Discharge Status Pt. Type Provider Facility Loc./Unit Complaint [id number] 05/05/2017 10:21:00 05/05/2017 23:59:59 CLS Outpatient LIGIA KING MD [facility] LAB HCG QUANT [id number] 05/01/2017 10:23:00 05/01/2017 23:59:59 CLS Outpatient BRAYAN PEREZ [facility] LAB THREATENED MISCARRIAGE, LOWER ABD PAIN [id number] 04/29/2017 14:31:00 04/29/2017 17:50:00 DIS Emergency BRAYAN PEREZ [facility] ER ABD PAIN [id number] 09/16/2015 12:29:00 09/16/2015 17:30:00 DIS Outpatient BRIDGER BLUE MD [facility] SDC BILATERAL LABIAL HYPERTROPHY [id number] 09/13/2015 14:05:00 09/13/2015 23:59:59 CLS Outpatient SU MUÑIZ, BRIDGER Mike [facility] PREOP BILATERAL LABIAL HYPERTROPHY [id number] 11/30/2014 11:52:00 11/30/2014 14:36:00 DIS Outpatient MONIQUE SOLITARIO MD [facility] SDC ULCERS;EPIGASTRIC PAIN;BLOOD IN STOOLS;DIARRHEA [id number] 11/29/2014 05:40:00 11/29/2014 23:59:59 CLS Outpatient MONIQUE SOLITARIO MD [facility] PREOP ULCERS;EPIGASTRIC PAIN;BLOOD IN STOOLS;DIARRHEA [id number] 11/26/2014 19:32:00 11/26/2014 22:14:00 DIS Emergency LIGIA ANTON DO [facility] ER FEVER,VOMITING,SORE THROAT [id number] 05/06/2014 10:49:00 05/06/2014 13:26:00 DIS Emergency LIGIA ANTON DO [facility] ER SUICIDE ATTEMPT [id number] 04/05/2014 09:35:00 04/05/2014 11:12:00 DIS Emergency DADA MUÑIZ, JAVI Leslie [facility] ER SYNCOPAL EPISODE [id number] 02/05/2014 09:55:00 02/05/2014 12:35:00 DIS Outpatient SANDRA LIND DO [facility] 4THo DEHYDRATION [id number] 03/16/2013 20:43:00 03/16/2013 23:01:00 DIS Emergency RUTH MUÑIZ, CHARLES Willis [facility] ER SUICIDE ATTEMPT [id number] 12/24/2012 20:12:00 12/24/2012 21:57:00 DIS Emergency MELQUIADES OCHOA MD [facility] ER VOMITING [id number] 06/08/2012 06:30:00 Document Registration [id number] 06/01/2012 07:42:00 Document Registration [id number] 02/05/2011 20:35:00 Document Registration [id number] 06/03/2016 15:57:53 ACT Document Registration [id number] 08/10/2016 15:51:00 08/10/2016 23:59:59 [place] [id number] 12/14/2016 10:00:00 12/14/2016 23:59:59 CLS Outpatient JUVENCIO MUÑIZ ELIAN Cee [facility] [id number] 03/03/2017 13:58:00 03/03/2017 23:59:00 DIS Outpatient Ligia King [id number] 02/26/2017 14:47:00 02/26/2017 23:59:00 DIS Outpatient Ligia King [id number] 12/29/2016 04:33:00 12/29/2016 05:13:00 DIS Outpatient REINALDO BOBO [id number] 12/29/2016 05:03:45 Document Registration [id number] 06/03/2016 10:00:00 06/03/2016 10:28:00 DIS Emergency Tiffanie MUÑIZ, [facility] [id number] 04/09/2016 08:28:00 04/12/2016 12:27:00 DIS Outpatient Lisa MUÑIZ, [facility] W.7TN [id number] 02/24/2016 00:55:00 02/24/2016 03:20:00 DIS Emergency Tiffanie MUÑIZ, [facility] [id number] 01/31/2016 19:11:00 01/31/2016 21:26:00 DIS Emergency aZ MUÑIZ, [facility] 11/30/2014 11:52:47 ACT Document Registration [id number] 03/08/2017 16:19:00 Document Registration [id number] 09/16/2016 09:17:17 09/16/2016 23:59:59 CLS Outpatient Sandra Lind
[2017-09-10] MEDS ORDERED: ONDA4TAB8 SL (09:30)
== END 2017-08-08 19:07 | disposition home or self-care (01) ==
LOC: EDUNIT# 15:19 → ER 15:21
DX: R10.84 Generalized abdominal pain (principal); F41.9 Anxiety disorder, unspecified; F32.9 Major depressive disorder, single episode, unspecified; F12.90 Cannabis use, unspecified, uncomplicated; F17.210 Nicotine dependence, cigarettes, uncomplicated; Z91.5 Personal history of self-harm; Z90.49 Acquired absence of other specified parts of digestive tract; Z87.01 Personal history of pneumonia (recurrent); Z87.19 Personal history of other diseases of the digestive system; Z87.81 Personal history of (healed) traumatic fracture; Z88.5 Allergy status to narcotic agent; Z88.0 Allergy status to penicillin; Z32.01 Encounter for pregnancy test, result positive
CPT/HCPCS: 36415; 84702; 84703; 99283

== ENCOUNTER → 2017-08-11 | Outpatient (CLI) | payer BC, MEDICAID ==
[~2017-08-11] MED LIST changes: +DOXY1TAB3 PO; +ONDA4TAB8 SL; +PROC10TA10 PO; +PROC25SU3 RC; +SCOP1PAT11 TOP
== END ==
LOC: LAB 12:07
PROVIDERS: ATTEND Physician Assistant
DX: Z34.90 Encounter for supervision of normal pregnancy, unspecified, unspecified trimester (principal)
CPT/HCPCS: 36415; 84702

== ENCOUNTER 2017-08-19 11:25 | Observation (INO) | payer BC, MEDICAID ==
[~2017-08-19 11:25] MED LIST changes: -DOXY1TAB3 PO; -ONDA4TAB8 SL; -PROC10TA10 PO; -PROC25SU3 RC; -SCOP1PAT11 TOP
[2017-08-19] MEDS ORDERED: LACTATED RINGERS 1,000 ML IV SCH ×2 (11:40→13:40)
[2017-08-19 11:43] VITALS: BP 106/72
[2017-08-19] MEDS: CATHETER FLUSH 10 ML SYR IV SCH ×2 (12:32→22:47)
[2017-08-19] MEDS: PROMETHAZINE INJ 25 MG/ML (PHENERGAN) AMP IVP PRN ×3 (12:33→22:43)
[2017-08-19] MEDS ORDERED: ANTACID SUSP 30 ML UDC (MYLANTA) PO PRN (14:45)
[2017-08-19] MEDS ORDERED: PANTOPRAZOLE 40 MG (PROTONIX) TAB PO ONE (14:45)
[2017-08-19] MEDS: D5 NS W/KCL 20 MEQ/L 1,000 ML IV SCH ×3 (15:02→22:56)
[2017-08-19 18:20] VITALS: BP 101/56
[2017-08-19 20:00] VITALS: BP 106/67
[2017-08-19] MEDS ORDERED: diphenhydrAMINE 50 MG/ML INJ (BENADRYL) IVP ONE (22:00)
[2017-08-19 23:50] VITALS: BP 95/57
[2017-08-20] MEDS ORDERED: diphenhydrAMINE 50 MG/ML INJ (BENADRYL) IVP ONE (00:15)
[2017-08-20] MEDS: D5 NS W/KCL 20 MEQ/L 1,000 ML IV SCH ×4 (00:22→20:31)
[2017-08-20 06:08] VITALS: BP 80/50
--- NOTE | 2017-08-20 09:57 | Progress Note (SOAP) ---
Subjective Date Seen by Provider: Aug 20, 2017 Time Seen by Provider: 08:40 Subjective/Events-last exam Patient admitted last night from clinic due to hyperemesis and dehydration. Labs wnl except elevated bili and mildly decreased potassium. Has received several liters of fluid. Improvement in nausea with promethazine, but still unable to eat food. Tried sips of broth but vomited 30 minutes later. She mainly spits or has bile. Have written Rx to start diclegis but need to get approved. Last night had twitching while trying to sleep. Gave Benadryl but uncertain if this is a dystonic reaction. Likely REM sleep with body twitching but will change to compazine in the event it is due to the promethazine. Will change to banana bag as she has not eaten. uO decreased yesterday but has increased today. Total 4 liters in. 08/20/17 08/20/17 06:08 10:14 Temp 98.0 98.8 Pulse 61 52 Resp 16 16 B/P (MAP) 80/50 (60) 96/42 (60) Pulse Ox 98 99 O2 Delivery Room Air Room Air 08/20/17 00:00 Intake Total 2000 ml Output Total 350 ml Balance 1650 ml Objective Exam Vital Signs Date Time Temp Pulse Resp B/P (MAP) Pulse Ox O2 Delivery O2 Flow Rate FiO2 08/20/17 06:08 98.0 61 16 80/50 (60) 98 Room Air 08/19/17 23:50 98.6 61 18 95/57 (70) 97 Room Air 08/19/17 20:00 99.3 88 18 106/67 (80) 100 Room Air 08/19/17 18:20 99.3 60 18 101/56 (71) 98 Room Air 08/19/17 11:43 98.6 58 18 106/72 (83) 100 Room Air I & O 08/20/17 07:00 Intake Total 4050 ml Output Total 1600 ml Balance 2450 ml Capillary Refill : General Appearance: Moderate Distress, Thin Assessment/Plan Assessment/Plan Assess & Plan/Chief Complaint 1 hyperemsis gravidarum, 6 weeks gestation 2. dehydration 3. hypokalemia (mild) 4. elevated bilirubin plan continue IVF and IV antiemetics. change to compazine, scopalamine patch. Consider TPN as needed. Banana bag. PATRICK RAE DO Aug 20, 2017 09:57
[2017-08-20] MEDS ORDERED: THIAMINE INJECTION 100 MG, FOLIC ACID INJECTION 1 MG, VITAMIN MULTI INJECTION 10 ML, MA... IV ONE ×5 (10:00)
[2017-08-20 10:14] VITALS: BP 96/42
[2017-08-20] MEDS: PROCHLORPERAZINE 10 MG/2ML INJ (COMPAZINE) IV PRN ×2 (10:21→20:32)
[2017-08-20] MEDS ORDERED: SCOPOLAMINE 1.5 MG (TRANSDERM-SCOP) PATCH TOP SCH (13:30)
[2017-08-20] MEDS ORDERED: PROC10TA10 PO (14:06)
[2017-08-20] MEDS ORDERED: PROC25SU3 RC (14:06)
[2017-08-20] MEDS ORDERED: DOXY1TAB3 PO (14:06)
[2017-08-20] MEDS ORDERED: SCOP1PAT11 TOP (14:06)
--- NOTE | 2017-08-20 14:08 | Physician Progress Note ---
Progress Note Assessment/Plan Date Seen by Provider: Aug 20, 2017 Time Seen by Provider: 13:50 Events since last exam doing better after compazine and scopolamine. Tolerating small amounts of food and liquids. Will dc home. Start Diclegis tonight. See her next week for visit. Assessment/Plan 1 hyperemsis gravidarum, 6 weeks gestation 2. dehydration 3. hypokalemia (mild) 4. elevated bilirubin plan continue IVF and IV antiemetics. change to compazine, scopalamine patch. Consider TPN as needed. Banana bag. Vitals Last set of Vitals Signs Vital Signs Date Time Temp Pulse Resp B/P (MAP) Pulse Ox O2 Delivery O2 Flow Rate FiO2 08/20/17 10:14 98.8 52 16 96/42 (60) 99 Room Air I&O I&O Intake and Output 08/20/17 00:00 Intake Total 2000 ml Output Total 350 ml Balance 1650 ml IV Total 2000 ml Output Urine Total 300 ml Emesis 50 ml PATRICK RAE DO Aug 20, 2017 14:08
--- NOTE | 2017-08-20 14:12 | Discharge Inst-Women's Service ---
Discharge Inst-Women's Serv Depart Medication/Instructions New, Converted or Re-Newed RX: RX on Chart Instructions start diclegis 2 po at hs; and (then 1 po am and 2 pm as needed) Hyperemesis diet Continue omeprazole daily compazine bid orally for nausea, rectally if emesis scopolamine patch q 72 hours as needed B suckers or Lozenges; preggy pops, jolly ranchers, all as needed regular fluids (at least 64 ounces daily) Final Diagnosis hyperemesis dehydration hypokalemia elevated bilirubin approximately 6 weeks gestation history of SAB Consults/Follow Up Additional Follow Up: Yes (as scheduled) Activity Activity: Activity as Tolerated Driving Instructions: You May Drive NO SMOKING: NO SMOKING Nothing Inside Vagina: No Douching, No Tampons Diet Discharge Diet: Eat Small Frequent Meals, Other Diet (hyperemesis) Symptoms to Report to : Appetite Changes, Fever Over 101 Degrees F, Dizziness/Fainting, Nausea/Vomiting (uncontrolled by medications; can't keep anything down) For Any Problems or Questions: Contact Your Physician ([phone] (women's services)) PATRICK RAE DO Aug 20, 2017 14:12
[2017-08-20] MEDS: METOCLOPRAMIDE INJ 10 MG/2 ML (REGLAN) IVP SCH ×2 (15:19→20:31)
[2017-08-20 15:22] VITALS: BP 88/54
[2017-08-20 20:40] VITALS: BP 100/63
[2017-08-20] MEDS ORDERED: diphenhydrAMINE 50 MG/ML INJ (BENADRYL) ONE (21:16)
[2017-08-20] MEDS: CATHETER FLUSH 10 ML SYR IV SCH (22:00)
[2017-08-21] MEDS: D5 NS W/KCL 20 MEQ/L 1,000 ML IV SCH (01:31)
[2017-08-21 02:05] VITALS: BP 85/47
[2017-08-21] MEDS: METOCLOPRAMIDE INJ 10 MG/2 ML (REGLAN) IVP SCH ×2 (02:05→07:27)
--- OUTSIDE RECORDS SUMMARY | 2017-08-21 07:59 | XMS REPORT | Continuity of Care Document ---
Author Author [facility] Organization [facility] Address Unknown Phone Unavailable Allergies Active Description Code Type Severity Reaction Onset Reported/Identified Relationship to Patient Clinical Status Yes HYDROCODONE-ACETAMINOPHEN MODERATE ITCHING Yes PENICILLINS UNKNOWN UNKNOWN Yes hydrocodone [id number] Drug Allergy Mild N/A 02/05/2011 Yes penicillin [id number] Drug Allergy Unknown N/A 11/26/2014 Yes hydrocodone [id number] Drug Allergy Moderate HIVES 09/16/2015 Yes penicillin [id number] Drug Allergy Mild RASH 09/16/2015 Yes hydrocodone hydrocodone Drug Allergy Unknown UNKNOWN 01/31/2016 Yes Penicillins Penicillins Drug Allergy Unknown UNKNOWN 01/31/2016 Medications Medication Packaging Start Date Stop Date Route Dosage Sig CEFDINIR CAP 300 MG (OMNICEF) MG 12/29/2016 ONCE&0503 Ondansetron 4mg oral DissolveTab (Zofran) MG 08/17/2017 08/17/2017 PRN ONCE LACTATED RINGERS 1000CC IV BAG INJ ml 08/17/2017 08/17/2017 ONCE&0518 ONDANSETRON VIAL INJ 4 MG/2CC (ZOFRAN 2CC VIAL) MG 08/17/2017 08/17/2017 PRN ONCE GI COCKTAIL SINGLE DOSE LIQ (GRASSHOPPER) ML 08/17/2017 08/17/2017 ONCE&0556 Problems Date Dx Coded Attending Type Code [...] Ot 599.0 URIN TRACT INFECTION NOS 12/24/2012 GABRIELA MUÑIZ, MELQUIADES Lara Ot 787.01 NAUSEA WITH VOMITING 03/16/2013 CHARLES [...] BY CUT INST 02/05/2014 Ot V72.84 02/05/2014 SANDRA LIND DO Ot 276.51 DEHYDRATION 02/05/2014 SANDRA LIND DO Ot 558.9 NONINF GASTROENTERIT NEC 02/05/2014 Ot V72.84 04/05/2014 JAVI GARLAND MD Ot 780.2 SYNCOPE AND COLLAPSE 05/06/2014 Ot V72.84 05/06/2014 LIGIA ANTON DO Ot 305.20 CANNABIS ABUSE-UNSPEC 05/06/2014 LIGIA ANTON DO Ot 881.02 OPEN WOUND OF WRIST 05/06/2014 LIGIA ANTON DO Ot E000.8 OTHER EXTERNAL CAUSE STATUS 05/06/2014 LIGIA ANTON DO Ot E849.0 ACCIDENT IN HOME 05/06/2014 LIGIA ANTON DO Ot E956 KYMBERLY/SELF-INJ BY CUT INST 05/06/2014 LIGIA ANTON DO Ot V62.84 SUICIDAL IDEATION 11/26/2014 Ot V72.84 11/26/2014 LIGIA ANTON DO Ot 462 ACUTE PHARYNGITIS 11/26/2014 LIGIA ANTON DO Ot 599.0 URIN TRACT INFECTION NOS 11/26/2014 LIGIA ANTON DO Ot 782.1 NONSPECIF SKIN ERUPT NEC 11/26/2014 LIGIA ANTON DO Ot J02.9 ACUTE PHARYNGITIS, UNSPECIFIED 11/26/2014 LIGIA ANTON DO Ot N39.0 URINARY TRACT INFECTION, [...] PERSONAL HISTORY OF PEPTIC ULCER DISEASE 11/30/2014 MONIQUE SOLITARIO MD Ot Z87.11 PERSONAL HISTORY OF PEPTIC ULCER DISEASE 03/19/2015 Ot V72.84 03/19/2015 MONIQUE SOLITARIO MD Ot V72.84 09/13/2015 Ot V72.84 EXAM PRE- OPERATIVE NOS 09/13/2015 KASSI MUÑIZ, MONIQUE Payne Ot V72.84 EXAM PRE-OPERATIVE NOS 09/16/2015 Ot V72.84 EXAM PRE- OPERATIVE NOS 09/16/2015 MONIQUE SOLITARIO MD Ot V72.84 EXAM PRE-OPERATIVE NOS 09/16/2015 BRIDGER BLUE MD Ot N39.0 URINARY TRACT INFECTION, SITE NOT SPECIF 09/16/2015 SU MUÑIZ BRIDGER N Ot N76.1 SUBACUTE AND CHRONIC VAGINITIS 09/16/2015 SU MUÑIZ BRIDGER N Ot 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 09/16/2015 ABDOUL BLUE MDIN N Ot Z11.2 ENCOUNTER FOR SCREENING FOR OTHER BACTER 09/17/2015 BRIDGER BLUE MD N Ot N39.0 URINARY TRACT INFECTION, SITE NOT SPECIF 09/17/2015 BRIDGER BLUE MD N Ot N76.1 SUBACUTE AND CHRONIC VAGINITIS 09/17/2015 BRIDGER BLUE MD N Ot 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 09/17/2015 BRIDGER BLUE MD N Ot Z11.2 ENCOUNTER FOR SCREENING FOR OTHER BACTER 08/10/2016 PRUDENCIO LU N898 Other specified noninflammatory disorders of vagina 08/10/2016 PRUDENCIO LU Z8619 Personal history of other infectious and parasitic diseases 12/29/2016 REINALDO BOBO A 462 ACUTE PHARYNGITIS 12/29/2016 REINALDO BOBO J02.9 [...] PRE- OPERATIVE NOS 04/29/2017 KASSI MUÑIZ, MONIQUE M Ot V72.84 EXAM PRE-OPERATIVE NOS 04/29/2017 SU MUÑIZ, BRIDGER Mike Ot 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 04/29/2017 SU MUÑIZ, BRIDGER Mike Ot Z01.818 ENCOUNTER FOR OTHER PREPROCEDURAL EXAMIN [...] 05/04/2017 BRAYAN PEREZ Ot O20.0 THREATENED 05/06/2017 FERNANDO MUÑIZ, LIGIA Lara Ot O03.9 COMPLETE OR UNSP SPONTANEOUS [place] 05/07/2017 BRAYAN PEREZ Ot O20.0 THREATENED 05/27/2017 LIGIA KING MD Ot O03.9 COMPLETE OR UNSP SPONTANEOUS [place] 08/08/2017 BRAYAN PEREZ Ot O20.0 THREATENED 08/08/2017 LIGIA KING MD Ot O03.9 COMPLETE OR UNSP SPONTANEOUS [place] 08/10/2017 BRAYAN PEREZ Ot F12.90 CANNABIS USE, UNSPECIFIED, UNCOMPLICATED 08/10/2017 BRAYAN PEREZ Ot F17.210 NICOTINE DEPENDENCE, CIGARETTES, UNCOMPL 08/10/2017 BRAYAN PEREZ Ot F32.9 MAJOR DEPRESSIVE DISORDER, SINGLE EPISOD 08/10/2017 BRAYAN PEREZ Ot F41.9 ANXIETY DISORDER, UNSPECIFIED 08/10/2017 BRAYAN PEREZ Ot R10.84 GENERALIZED ABDOMINAL PAIN 08/10/2017 BRAYAN PEREZ Ot Z32.01 ENCOUNTER FOR TEST, RESULT POS 08/10/2017 BRAYAN PEREZ Ot Z87.01 PERSONAL HISTORY OF PNEUMONIA (RECURRENT 08/10/2017 BRAYAN PEREZ Ot Z87.19 PERSONAL HISTORY OF OTHER DISEASES OF TH 08/10/2017 BRAYAN PEREZ Ot Z87.81 PERSONAL HISTORY OF (HEALED) TRAUMATIC F 08/10/2017 BRAYAN PEREZ Ot Z88.0 ALLERGY STATUS TO PENICILLIN 08/10/2017 BRAYAN PEREZ Ot Z88.5 ALLERGY STATUS TO NARCOTIC AGENT STATUS 08/10/2017 BRAYAN PEREZ Ot Z90.49 ACQUIRED ABSENCE OF OTHER SPECIFIED PART 08/10/2017 BRAYAN PEREZ Ot Z91.5 PERSONAL HISTORY OF SELF-HARM 08/12/2017 BRAYAN PEREZ Ot Z34.90 ENCNTR FOR SUPRVSN OF NORMAL , 08/14/2017 BRAYAN PEREZ Ot F12.90 CANNABIS USE, UNSPECIFIED, UNCOMPLICATED 08/14/2017 BRAYAN PEREZ Ot F17.210 NICOTINE DEPENDENCE, CIGARETTES, UNCOMPL 08/14/2017 BRAYAN PEREZ Ot F32.9 MAJOR DEPRESSIVE DISORDER, SINGLE EPISOD 08/14/2017 BRAYAN PEREZ Ot F41.9 ANXIETY DISORDER, UNSPECIFIED 08/14/2017 BRAYAN PEREZ Ot R10.84 GENERALIZED ABDOMINAL PAIN 08/14/2017 JESSICA FRANCISBRAYAN Rosanglea Ot Z32.01 ENCOUNTER FOR TEST, RESULT POS 08/14/2017 JESSICA FRANCIS BRAYAN L Ot Z87.01 PERSONAL HISTORY OF PNEUMONIA (RECURRENT 08/14/2017 JESSICA FRANCIS BRAYAN L Ot Z87.19 PERSONAL HISTORY OF OTHER DISEASES OF TH 08/14/2017 JESSICA FRANCIS BRAYAN L Ot Z87.81 PERSONAL HISTORY OF (HEALED) TRAUMATIC F 08/14/2017 BRAYAN PEREZ Ot Z88.0 ALLERGY STATUS TO PENICILLIN 08/14/2017 BRAYAN PEREZ Ot Z88.5 ALLERGY STATUS TO NARCOTIC AGENT STATUS 08/14/2017 BRAYAN PEREZ Ot Z90.49 ACQUIRED ABSENCE OF OTHER SPECIFIED PART 08/14/2017 JESSICA FRANCIS BRAYAN L Ot Z91.5 PERSONAL HISTORY OF SELF-HARM 08/17/2017 A 643.0 MILD HYPEREMESIS GRAVIDARUM 08/17/2017 A O21.0 MILD HYPEREMESIS GRAVIDARUM Procedures There is no data. <section xmlns="urn:hl7-org:v3" xmlns:xsi="http:// www.3.org/2001/XMLSchema-instance"> <templateId root= "[id number].3" /> <templateId root= "2.16.840.1.549690.10.20.22.2.3.1" /> <code codeSystemName="LOINC" codeSystem= "[id number]" code="45113-5" displayName="Results" /> <title>Results< /title> <text> <table> <thead> [...] <td>5.0-7.0</td> </tr> <tr> < colspan="10">UA MICROSCOPIC - 02/24/16 02:14</th> </tr> <tr> [...] wbc /hpf</td> <td>0 - 5</td> </tr> <tr> <th colspan= "10">UR TEST - 04/09/16 08:36</th> </tr> [...] /td> <td>2.2 mg/dL</td> <td>1.8-2.4</td> </tr> < tr> <th colspan="10">THYROID STIM HORMONE (TSH) - 04/09/16 08:53</th> [...] <td>45-117</ td> </tr> <tr> < colspan="10">PHOSPHORUS - 01/20/17 05: 18</th> </tr> <tr> <td>PHOSPHORUS</td> <td>3.5 mg/dL</td> <td>2.5-4.9</td> </tr> <tr> <th colspan="10">MAGNESIUM - 04/10/16 05:18</th> </tr> <tr> < td>MAGNESIUM</td> <td>2.1 mg/dL</td> <td>1.8-2.4</td> < /tr> <tr> <th colspan="10">URINE (CTS IF INDICATED) - 08/10/16 15:15</th> [...] <td>NORMAL: NONE SEEN</td> </tr> <tr> <th colspan="10">[facility] - 02/26/17 17:05</th> </tr> <tr> <td>Clue Cells</td> [...] to culture</td> <td>NO </td> <td>NRG</td> </tr> <tr> < colspan="10">Complete blood count (CBC) [...] mass/volume)</td> <td>4.0 g/dL</td> <td>3.2-4.5</td> </ tr> <tr> < colspan="10">Lipase - 04/29/17 15:20</th> </ tr> <tr> <td>Lipase</td> <td>23 U/L</td> <td>8 -78</td> </tr> <tr> <th colspan="10">Serum or plasma choriogonadotropin measurement (units/volume) - 04/29/17 15:20</th> </tr > <tr> <td>Serum or plasma choriogonadotropin measurement (units /volume)</td> <td>402 m[iU]/mL</td> <td><5</td> </tr > <tr> <th colspan="10">Serum or plasma choriogonadotropin measurement (units/volume) - 05/01/17 10:37</th> </tr> <tr> <td>Serum or plasma choriogonadotropin measurement (units/volume)</td> <td>149 m[iU]/mL</td> <td><5</td> </tr> <tr> <th colspan="10">Influenza virus A and B antigen detection - 05/05/17 10: 32</th> </tr> <tr> <td>FLU RESULT</td> <td> NEGATIVE FOR INFLUENZA A AND B ANTIGENS BY IA </td> <td>NRG</td> </tr> <tr> <th colspan="10">Serum or plasma choriogonadotropin measurement (units/volume) - 05/05/17 10:32</th> </tr > <tr> <td>Serum or plasma choriogonadotropin measurement (units /volume)</td> <td>36 m[iU]/mL</td> <td><5</td> </tr > <tr> <th colspan="10">Serum or plasma choriogonadotropin ( test) detection - 08/08/17 17:12</th> </tr> <tr> <td>Serum or plasma choriogonadotropin ( test) detection</td> <td>POSITIVE </td> <td>NEGATIVE</td> </tr> <tr> <th colspan="10">Serum or plasma choriogonadotropin measurement (units/ volume) - 08/08/17 17:12</th> </tr> <tr> <td>Serum or plasma choriogonadotropin measurement (units/volume)</td> <td>828 m[iU] /mL</td> <td><5</td> </tr> <tr> <th colspan= "10">Serum or plasma choriogonadotropin measurement (units/volume) - 08/11/17 12 :21</th> </tr> <tr> <td>Serum or plasma choriogonadotropin measurement (units/volume)</td> <td>3002 m[iU]/mL</ td> <td><5</td> </tr> <tr> <th colspan="10"> Beta HCG - 08/17/17 05:15</th> </tr> <tr> <td>Beta HCG</ td> <td>19135 mIU/mL</td> <td>5-25</td> </tr> </ tbody> </table> </text> <entry> <organizer moodCode="EVN" classCode= "BATTERY"> <templateId root="2.16.840.1.769071.10...4.1" /> <id nullFlavor="NA" /> <code codeSystem="local" code="UC" displayName="URINE CULTURE" /> <statusCode code="completed" /> <component> < observation moodCode="EVN" classCode="OBS"> <templateId root= "2.16.840.1.885872.10..22.4.2" /> <id nullFlavor="NA" /> < code codeSystem="local" code="MB" displayName="Microbiology" /> < statusCode code="completed" /> <effectiveTime value="[id number]" /> <value xsi:type="ST" value="<pre><b>URINE CULTURE</b> See BelowURINE CULTURE(F) Franko Date/Time: 01/31/2016 19:18 Luly Date/Time: 2016 08:28SOURCE: URINESPEC DESC: CLEAN CATCHTREATMENT OF ASYMPTOMATIC BACTERIURIA IS NOT USUALLYCLINICALLY INDICATED.MIXED GRAM POSITIVE?MIXED GRAM POSITIVE BACTERIAGROUP B STREP? .INCLUDING GROUP B STREPTOCOCCUSMORTON [facility] [facility] [place] [address]</pre>" /> <referenceRange> <observationRange> <text /> </observationRange> </referenceRange> </observation> </component> </organizer> </entry> <entry> < organizer moodCode="EVN" classCode="BATTERY"> <templateId root= "2.16.840.1.958234.10.20.22.4.1" /> <id nullFlavor="NA" /> <code codeSystem="local" code="UA" displayName="URINALYSIS, ROUTINE" /> < statusCode code="completed" /> <component> <observation moodCode= "EVN" classCode="OBS"> <templateId root="2.16.840.1.985605.10.20.22.4.2 " /> <id nullFlavor="NA" /> <code codeSystem="local" code= "LEUESU" displayName="UA LEUKOCYTE ESTERASE DIPSTICK" /> <statusCode code="completed" /> <effectiveTime value="[id number]" /> < value unit="" xsi:type="PQ" value="TRACE" /> <referenceRange> <observationRange> <text>NEGATIVE</text> </ observationRange> </referenceRange> </observation> </ component> <component> <observation moodCode="EVN" classCode="OBS"> <templateId root="2.16.840.1.727688.10.20.22.4.2" /> <id nullFlavor="NA" /> <code codeSystem="local" code="NITRIU" displayName= "UA NITRITE DIPSTICK" /> <statusCode code="completed" /> < effectiveTime value="" /> <value unit="" xsi:type="PQ" value="NEGATIVE" /> <referenceRange> <observationRange> <text>NEGATIVE</text> </observationRange> </ referenceRange> </observation> </component> <component> <observation moodCode="EVN" classCode="OBS"> <templateId root= "05.07.840.1.955679.01.08.22.4.2" /> <id nullFlavor="NA" /> < code codeSystem="local" code="PROTEIU" displayName="UA PROTEIN DIPSTICK" /> <statusCode code="completed" /> <effectiveTime value= "" /> <value unit="" xsi:type="PQ" value="NEGATIVE" /> <referenceRange> <observationRange> <text>NEGATIVE </text> </observationRange> </referenceRange> </ observation> </component> <component> <observation moodCode= "EVN" classCode="OBS"> <templateId root="05.07.840.1.772345.01.08.22.4.2 " /> <id nullFlavor="NA" /> <code codeSystem="local" code= "DGLUU" displayName="UA GLUCOSE DIPSTICK" /> <statusCode code= "completed" /> <effectiveTime value="" /> <value unit="" xsi:type="PQ" value="NEGATIVE" /> <referenceRange> < observationRange> <text>NEGATIVE</text> </ observationRange> </referenceRange> </observation> </ component> <component> <observation moodCode="EVN" classCode="OBS"> <templateId root="05.07.840.1.813307.22.4.2" /> <id nullFlavor="NA" /> <code codeSystem="local" code="KETONU" displayName= "UA KETONE DIPSTICK" /> <statusCode code="completed" /> < effectiveTime value="" /> <value unit="" xsi:type="PQ" value="NEGATIVE" /> <referenceRange> <observationRange> <text>NEGATIVE</text> </observationRange> </ referenceRange> </observation> </component> <component> <observation moodCode="EVN" classCode="OBS"> <templateId root= "16.840.1.624205.10.22.4.2" /> <id nullFlavor="NA" /> < code codeSystem="local" code="UROBILU" displayName="UA UROBILINOGEN DIPSTICK" / > <statusCode code="completed" /> <effectiveTime value= "" /> <value unit="" xsi:type="PQ" value="NORMAL" /> <referenceRange> <observationRange> <text>NORMAL</ text> </observationRange> </referenceRange> </ observation> </component> <component> <observation moodCode= "EVN" classCode="OBS"> <templateId root="16.840.1.570084..22.4.2 " /> <id nullFlavor="NA" /> <code codeSystem="local" code= "BILU" displayName="UA BILIRUBIN DIPSTICK" /> <statusCode code= "completed" /> <effectiveTime value="" /> <value unit="" xsi:type="PQ" value="NEGATIVE" /> <referenceRange> < observationRange> <text>NEGATIVE</text> </ observationRange> </referenceRange> </observation> </ component> <component> <observation moodCode="EVN" classCode="OBS"> <templateId root="05.07.840.1.255885.01.08.22.4.2" /> <id nullFlavor="NA" /> <code codeSystem="local" code="BREANNA" displayName="UA BLOOD DIPSTICK" /> <statusCode code="completed" /> < effectiveTime value="" /> <value unit="" xsi:type="PQ" value="1+" /> <interpretationCode codeSystem="local" code="*" /> <referenceRange> <observationRange> <text>NEGATIVE</ text> </observationRange> </referenceRange> </ observation> </component> <component> <observation moodCode= "EVN" classCode="OBS"> <templateId root="216.840.1.913567.01.08.224.2 " /> <id nullFlavor="NA" /> <code codeSystem="local" code= "SPGRU" displayName="UA SPECIFIC GRAVITY" /> <statusCode code= "completed" /> <effectiveTime value="" /> <value unit="" xsi:type="PQ" value=">=1.030" /> <interpretationCode codeSystem="local" code="*" /> <referenceRange> < observationRange> <text>1.015-1.025</text> </ observationRange> </referenceRange> </observation> </ component> <component> <observation moodCode="EVN" classCode="OBS"> <templateId root="16.840.1.844306.01.08.22.4.2" /> <id nullFlavor="NA" /> <code codeSystem="local" code="CLOVER" displayName="UR PH" /> <statusCode code="completed" /> <effectiveTime value= "" /> <value unit="" xsi:type="PQ" value="5.5" /> <referenceRange> <observationRange> <text>5.0-7.0</text > </observationRange> </referenceRange> </observation > </component> </organizer> </entry> <entry> <organizer moodCode= "EVN" classCode="BATTERY"> <templateId root="216.840.1.836208.10.22.4.1 " /> <id nullFlavor="NA" /> <code codeSystem="local" code="UAMICRO" displayName="UA MICROSCOPIC" /> <statusCode code="completed" /> < component> <observation moodCode="EVN" classCode="OBS"> < templateId root="216.840.1.563682.10..4.2" /> <id nullFlavor="NA " /> <code codeSystem="local" code="BACU" displayName="UA BACTERIA" /> <statusCode code="completed" /> <effectiveTime value= "" /> <value unit="" xsi:type="PQ" value="1+" /> < interpretationCode codeSystem="local" code="*" /> <referenceRange> <observationRange> <text>NEGATIVE</text> </ observationRange> </referenceRange> </observation> </ component> <component> <observation moodCode="EVN" classCode="OBS"> <templateId root="216.840.1.162178.01.08.22.4.2" /> <id nullFlavor="NA" /> <code codeSystem="local" code="EPIU" displayName=" UA EPITHELIAL CELLS" /> <statusCode code="completed" /> < effectiveTime value="" /> <value unit="epi/hpf" xsi:type= "PQ" value="3+" /> <interpretationCode codeSystem="local" code="*" /> <referenceRange> <observationRange> <text>0 - 1 +</text> </observationRange> </referenceRange> </ observation> </component> <component> <observation moodCode= "EVN" classCode="OBS"> <templateId root="16.840.1.299612.10..4.2 " /> <id nullFlavor="NA" /> <code codeSystem="local" code= "MUCUSU" displayName="UA MUCUS" /> <statusCode code="completed" /> <effectiveTime value="" /> <value unit="" xsi:type= "PQ" value="3+" /> <interpretationCode codeSystem="local" code="*" /> <referenceRange> <observationRange> <text>NEG TO 1+</text> </observationRange> </referenceRange> </ observation> </component> <component> <observation moodCode= "EVN" classCode="OBS"> <templateId root="05.07.840.1.845894.01.08.22.4.2 " /> <id nullFlavor="NA" /> <code codeSystem="local" code= "RBCU" displayName="UA RBC" /> <statusCode code="completed" /> <effectiveTime value="" /> <value unit="rbc/hpf" xsi:type ="PQ" value="3-5" /> <interpretationCode codeSystem="local" code="*" / > <referenceRange> <observationRange> <text>0 - 3</text> </observationRange> </referenceRange> </ observation> </component> <component> <observation moodCode= "EVN" classCode="OBS"> <templateId root="05.07.840.1.417714.01.08.22.4.2 " /> <id nullFlavor="NA" /> <code codeSystem="local" code= "UAVOL" displayName="UA VOLUME FOR EXAM" /> <statusCode code="completed " /> <effectiveTime value="" /> <value unit="mL" xsi:type="PQ" value="12.0" /> <referenceRange> < observationRange> <text>(12mL STD)</text> </ observationRange> </referenceRange> </observation> </ component> <component> <observation moodCode="EVN" classCode="OBS"> <templateId root="216.840.1.696635.01.08.22.4.2" /> <id nullFlavor="NA" /> <code codeSystem="local" code="WBCU" displayName=" UA WBC" /> <statusCode code="completed" /> <effectiveTime value="" /> <value unit="wbc/hpf" xsi:type="PQ" value="20- 50" /> <interpretationCode codeSystem="local" code="*" /> < referenceRange> <observationRange> <text>0 - 5</text> </observationRange> </referenceRange> </observation> </component> </organizer> </entry> <entry> <organizer moodCode="EVN " classCode="BATTERY"> <templateId root="216.840.1.211737.10..4.1" / > <id nullFlavor="NA" /> <code codeSystem="local" code="PREGU" displayName="UR TEST" /> <statusCode code="completed" /> < component> <observation moodCode="EVN" classCode="OBS"> < templateId root="16.840.1.289661.10..4.2" /> <id nullFlavor="NA " /> <code codeSystem="local" code="PREGU" displayName="UR TEST" /> <statusCode code="completed" /> <effectiveTime value= "" /> <value unit="" xsi:type="PQ" value="NEGATIVE" /> <referenceRange> <observationRange> <text>NEGATIVE </text> </observationRange> </referenceRange> </ observation> </component> </organizer> </entry> <entry> <organizer moodCode="EVN" classCode="BATTERY"> <templateId root= "216.840.1.307748.10..22.4.1" /> <id nullFlavor="NA" /> <code codeSystem="local" code="DRUGAB" displayName="UR DRUGS OF ABUSE SCREEN" /> <statusCode code="completed" /> <component> <observation moodCode= "EVN" classCode="OBS"> <templateId root="216.840.1.432558.10..22.4.2 " /> <id nullFlavor="NA" /> <code codeSystem="local" code= "AMPHU" displayName="UR AMPHETAMINES SCREEN" /> <statusCode code= "completed" /> <effectiveTime value="" /> <value unit="" xsi:type="PQ" value="NEG (<1000 ng/mL)" /> <referenceRange > <observationRange> <text>NEGATIVE</text> </ observationRange> </referenceRange> </observation> </ component> <component> <observation moodCode="EVN" classCode="OBS"> <templateId root="216.840.1.107914.10...4.2" /> <id nullFlavor="NA" /> <code codeSystem="local" code="BARBU" displayName= "UR BARBITURATE SCREEN" /> <statusCode code="completed" /> < effectiveTime value="" /> <value unit="" xsi:type="PQ" value="NEG (< 200 ng/mL)" /> <referenceRange> < observationRange> <text>NEGATIVE</text> </ observationRange> </referenceRange> </observation> </ component> <component> <observation moodCode="EVN" classCode="OBS"> <templateId root="216.840.1.117433.10..4.2" /> <id nullFlavor="NA" /> <code codeSystem="local" code="DAUCOMMENT" displayName="DRUGS OF ABUSE SCREEN COMMENT" /> <statusCode code= "completed" /> <effectiveTime value="" /> <value unit="" xsi:type="PQ" value="" /> <referenceRange> < observationRange> <text /> </observationRange> </referenceRange> </observation> </component> <component> <observation moodCode="EVN" classCode="OBS"> <templateId root= "216.840.1.143643.01.08.224.2" /> <id nullFlavor="NA" /> < code codeSystem="local" code="OPIU" displayName="UR OPIATES SCREEN" /> <statusCode code="completed" /> <effectiveTime value="" /> <value unit="" xsi:type="PQ" value="NEG (< 300 ng/mL)" /> <referenceRange> <observationRange> <text>NEGATIVE</ text> </observationRange> </referenceRange> </ observation> </component> <component> <observation moodCode= "EVN" classCode="OBS"> <templateId root="216.840.1.306481.10..4.2 " /> <id nullFlavor="NA" /> <code codeSystem="local" code= "PCPU" displayName="UR PHENCYCLIDINE (PCP) SCREEN" /> <statusCode code= "completed" /> <effectiveTime value="" /> <value unit="" xsi:type="PQ" value="NEG (< 25 ng/mL)" /> <referenceRange > <observationRange> <text>NEGATIVE</text> </ observationRange> </referenceRange> </observation> </ component> <component> <observation moodCode="EVN" classCode="OBS"> <templateId root="216.840.1.443116.10..22.4.2" /> <id nullFlavor="NA" /> <code codeSystem="local" code="THCU" displayName=" UR CANNABINOIDS (THC) SCREEN" /> <statusCode code="completed" /> <effectiveTime value="" /> <value unit="" xsi:type="PQ " value="POS (> 50 ng/mL)" /> <interpretationCode codeSystem= "local" code="*" /> <referenceRange> <observationRange> <text>NEGATIVE</text> </observationRange> </ referenceRange> </observation> </component> <component> <observation moodCode="EVN" classCode="OBS"> <templateId root= "[id number]" /> <id nullFlavor="NA" /> < code codeSystem="local" code="COCAU" displayName="UR COCAINE METABOLITE SCREEN" /> <statusCode code="completed" /> <effectiveTime value= "" /> <value unit="" xsi:type="PQ" value="POS (> 300 ng /mL)" /> <interpretationCode codeSystem="local" code="*" /> < referenceRange> <observationRange> <text>NEGATIVE</text > </observationRange> </referenceRange> </observation > </component> <component> <observation moodCode="EVN" classCode="OBS"> <templateId root="[id number]" /> <id nullFlavor="NA" /> <code codeSystem="local" code="METHU" displayName="UR METHADONE SCREEN" /> <statusCode code="completed" /> <effectiveTime value="" /> <value unit="" xsi:type= "PQ" value="NEG (< 300 ng/mL)" /> <referenceRange> < observationRange> <text>NEGATIVE</text> </ observationRange> </referenceRange> </observation> </ component> <component> <observation moodCode="EVN" classCode="OBS"> <templateId root="[id number]" /> <id nullFlavor="NA" /> <code codeSystem="local" code="BENZU" displayName= "UR BENZODIAZEPINE SCREEN" /> <statusCode code="completed" /> <effectiveTime value="" /> <value unit="" xsi:type="PQ" value="NEG (< 200 ng/mL)" /> <referenceRange> < observationRange> <text>NEGATIVE</text> </ observationRange> </referenceRange> </observation> </ component> </organizer> </entry> <entry> <organizer moodCode="EVN" classCode="BATTERY"> <templateId root="[id number]" /> <id nullFlavor="NA" /> <code codeSystem="local" code="CHL" displayName ="CHLAMYDIA DNA BY PCR" /> <statusCode code="completed" /> <component > <observation moodCode="EVN" classCode="OBS"> <templateId root= "[id number]" /> <id nullFlavor="NA" /> < code codeSystem="local" code="MB" displayName="Microbiology" /> < statusCode code="completed" /> <effectiveTime value="" /> <value xsi:type="ST" value="<pre><b>CHLAMYDIA DNA BY PCR - GONORRHOEA DNA BY PCR</b> See BelowCHLAMYDIA DNA BY PCR(F) Franko Date/Time: 2015 19:31 Luly Date/Time: 02/03/2016 13:22SOURCE : URINESPEC DESC: [address] [id number] BelowGONORRHOEA DNA BY PCR(F) Franko Date/Time: 01/31/2016 19:31 Luly Date/Time: 02/03/2016 13:22SOURCE: URINESPEC DESC: [address] [address]</ pre>" /> <referenceRange> <observationRange> < text /> </observationRange> </referenceRange> </ observation> </component> </organizer> </entry> <entry> <organizer moodCode="EVN" classCode="BATTERY"> <templateId root= "2.16.840.1.195054.10..22.4.1" /> <id nullFlavor="NA" /> <code codeSystem="local" code="WET" displayName="WET MOUNT" /> <statusCode code= "completed" /> <component> <observation moodCode="EVN" classCode= "OBS"> <templateId root="2.16.840.1.385725.10.20.22.4.2" /> < id nullFlavor="NA" /> <code codeSystem="local" code="MB" displayName= "Microbiology" /> <statusCode code="completed" /> < effectiveTime value="" /> <value xsi:type="ST" value="<pre> <b>WET MOUNT</b> See Below: [facility] room 47 jkgWET MOUNT(F) Franko Date/Time: 01/31/2016 20:00 Luly Date/Time: 2015 21:01SOURCE: VAGINALSPEC DESC: CLUE CELLSNO CLUE CELLS SEENTRICHOMONASNO TRICHOMONAS SEENYEAST (Abnormal)MANY YEAST (Abnormal)[address] [address]</pre>" /> <referenceRange > <observationRange> <text /> </ observationRange> </referenceRange> </observation> </ component> </organizer> </entry> <entry> <organizer moodCode="EVN" classCode="BATTERY"> <templateId root="2.16.840.1.813151.10.20.22.4.1" /> <id nullFlavor="NA" /> <code codeSystem="local" code="GRAM" displayName="GRAM STAIN - CHLAMYDIA DNA BY PCR" /> <statusCode code= "completed" /> <component> <observation moodCode="EVN" classCode= "OBS"> <templateId root="2.16.840.1.855447.10.20.22.4.2" /> < id nullFlavor="NA" /> <code codeSystem="local" code="MB" displayName= "Microbiology" /> <statusCode code="completed" /> < effectiveTime value="[id number]" /> <value xsi:type="ST" value="<pre> <b>GRAM STAIN</b> See Below: [facility] room 47 jkgGRAM STAIN(F) Franko Date/Time: 01/31/2016 20:00 Luly Date/Time: 01/31/2016 21:03SOURCE: VAGINALSPEC DESC: GRAM STAINRARE NEUTROPHILSNO ORGANISMS SEEN RESEMBLING NEISSERIA GONORRHOEAEMANY GRAM POSITIVE BACILLI RESEMBLING LACTOBACILLUS[address] [address]</ pre>" /> <referenceRange> <observationRange> < text /> </observationRange> </referenceRange> </ observation> </component> </organizer> </entry> <entry> <organizer moodCode="EVN" classCode="BATTERY"> <templateId root= "216.840.1.938073.10...4.1" /> <id nullFlavor="NA" /> <code codeSystem="local" code="iCHEM8" displayName="CHEM/HEM PROFILE-BEDSIDE" /> <statusCode code="completed" /> <component> <observation moodCode= "EVN" classCode="OBS"> <templateId root="216.840.1.110671...4.2 " /> <id nullFlavor="NA" /> <code codeSystem="local" code="K" displayName="POTASSIUM" /> <statusCode code="completed" /> < effectiveTime value="566559211508" /> <value unit="mmol/L" xsi:type="PQ " value="3.5" /> <referenceRange> <observationRange> <text>3.5-5.3</text> </observationRange> </ referenceRange> </observation> </component> <component> <observation moodCode="EVN" classCode="OBS"> <templateId root= "216.840.1.728825.10...4.2" /> <id nullFlavor="NA" /> < code codeSystem="local" code="CMETHOD" displayName="METHOD" /> < statusCode code="completed" /> <effectiveTime value="369744498024" /> <value unit="" xsi:type="PQ" value="Bedside" /> < referenceRange> <observationRange> <text /> < /observationRange> </referenceRange> </observation> </ component> <component> <observation moodCode="EVN" classCode="OBS"> <templateId root="216.840.1.436338.01.08.22.4.2" /> <id nullFlavor="NA" /> <code codeSystem="local" code="GAP" displayName= "ANION GAP" /> <statusCode code="completed" /> <effectiveTime value="" /> <value unit="mmol/L" xsi:type="PQ" value="0" / > <interpretationCode codeSystem="local" code="*" /> < referenceRange> <observationRange> <text>10-20</text> </observationRange> </referenceRange> </observation> </component> <component> <observation moodCode="EVN" classCode= "OBS"> <templateId root="216.840.1.046402.01.08.22.4.2" /> < id nullFlavor="NA" /> <code codeSystem="local" code="HMETHOD" displayName="METHOD" /> <statusCode code="completed" /> < effectiveTime value="" /> <value unit="" xsi:type="PQ" value="Bedside" /> <referenceRange> <observationRange> <text /> </observationRange> </referenceRange> </observation> </component> <component> <observation moodCode="EVN" classCode="OBS"> <templateId root= "216.840.1.755081.01.08.22.4.2" /> <id nullFlavor="NA" /> < code codeSystem="local" code="GLU" displayName="GLUCOSE" /> < statusCode code="completed" /> <effectiveTime value="134940754167" /> <value unit="mg/dL" xsi:type="PQ" value="95" /> < referenceRange> <observationRange> <text>70-99</text> </observationRange> </referenceRange> </observation> </component> <component> <observation moodCode="EVN" classCode= "OBS"> <templateId root="216.840.1.225078.10..22.4.2" /> < id nullFlavor="NA" /> <code codeSystem="local" code="BUN" displayName= "BLOOD UREA NITROGEN" /> <statusCode code="completed" /> < effectiveTime value="" /> <value unit="mg/dL" xsi:type="PQ " value="16" /> <referenceRange> <observationRange> <text>7-20</text> </observationRange> </referenceRange > </observation> </component> <component> <observation moodCode="EVN" classCode="OBS"> <templateId root= "16.840.1.909206.10..22.4.2" /> <id nullFlavor="NA" /> < code codeSystem="local" code="CREAT" displayName="CREATININE" /> < statusCode code="completed" /> <effectiveTime value="" /> <value unit="mg/dL" xsi:type="PQ" value="0.8" /> < referenceRange> <observationRange> <text>0.6-1.0</text> </observationRange> </referenceRange> </observation > </component> <component> <observation moodCode="EVN" classCode="OBS"> <templateId root="16.840.1.298960.10.20.22.4.2" /> <id nullFlavor="NA" /> <code codeSystem="local" code="HGBT" displayName="HEMOGLOBIN" /> <statusCode code="completed" /> < effectiveTime value="101919164759" /> <value unit="gm/dL" xsi:type="PQ " value="12.6" /> <referenceRange> <observationRange> <text>12.0-16.0</text> </observationRange> </ referenceRange> </observation> </component> <component> <observation moodCode="EVN" classCode="OBS"> <templateId root= "216.840.1.803412.10..22.4.2" /> <id nullFlavor="NA" /> < code codeSystem="local" code="HCTT" displayName="HEMATOCRIT" /> < statusCode code="completed" /> <effectiveTime value="" /> <value unit="%" xsi:type="PQ" value="37.0" /> < referenceRange> <observationRange> <text>37.0-47.0</text > </observationRange> </referenceRange> </observation > </component> <component> <observation moodCode="EVN" classCode="OBS"> <templateId root="05.07.840.1.463869.01.08.22.4.2" /> <id nullFlavor="NA" /> <code codeSystem="local" code="NA" displayName="SODIUM" /> <statusCode code="completed" /> < effectiveTime value="" /> <value unit="mmol/L" xsi:type="PQ " value="141" /> <referenceRange> <observationRange> <text>135-148</text> </observationRange> </ referenceRange> </observation> </component> <component> <observation moodCode="EVN" classCode="OBS"> <templateId root= "16.840.1.518287.10..22.4.2" /> <id nullFlavor="NA" /> < code codeSystem="local" code="CL" displayName="CHLORIDE" /> < statusCode code="completed" /> <effectiveTime value="" /> <value unit="mmol/L" xsi:type="PQ" value="102" /> < referenceRange> <observationRange> <text>98-110</text> </observationRange> </referenceRange> </observation> </component> <component> <observation moodCode="EVN" classCode ="OBS"> <templateId root="16.840.1.818817.10.20.22.4.2" /> < id nullFlavor="NA" /> <code codeSystem="local" code="CO2" displayName= "CARBON DIOXIDE" /> <statusCode code="completed" /> < effectiveTime value="189402975882" /> <value unit="mmol/L" xsi:type="PQ " value="43" /> <interpretationCode codeSystem="local" code="*" /> <referenceRange> <observationRange> <text>21-32</ text> </observationRange> </referenceRange> </ observation> </component> <component> <observation moodCode= "EVN" classCode="OBS"> <templateId root="05.07.840.1.703321.10...4.2 " /> <id nullFlavor="NA" /> <code codeSystem="local" code= "CAION" displayName="CALCIUM IONIZED" /> <statusCode code="completed" / > <effectiveTime value="794591180687" /> <value unit="mg/dL" xsi:type="PQ" value="4.7" /> <referenceRange> < observationRange> <text>4.5-5.3</text> </ observationRange> </referenceRange> </observation> </ component> </organizer> </entry> <entry> <organizer moodCode="EVN" classCode="BATTERY"> <templateId root="16.840.1.942050.10..22.4.1" /> <id nullFlavor="NA" /> <code codeSystem="local" code="UA" displayName= "URINALYSIS, ROUTINE" /> <statusCode code="completed" /> <component> <observation moodCode="EVN" classCode="OBS"> <templateId root= "16.840.1.193468.10..4.2" /> <id nullFlavor="NA" /> < code codeSystem="local" code="LEUESU" displayName="UA LEUKOCYTE ESTERASE DIPSTICK" /> <statusCode code="completed" /> <effectiveTime value="" /> <value unit="" xsi:type="PQ" value="NEGATIVE" / > <referenceRange> <observationRange> <text> NEGATIVE</text> </observationRange> </referenceRange> </observation> </component> <component> <observation moodCode ="EVN" classCode="OBS"> <templateId root= "05.07.840.1.508717.01.08.22.4.2" /> <id nullFlavor="NA" /> < code codeSystem="local" code="NITRIU" displayName="UA NITRITE DIPSTICK" /> <statusCode code="completed" /> <effectiveTime value=" " /> <value unit="" xsi:type="PQ" value="NEGATIVE" /> < referenceRange> <observationRange> <text>NEGATIVE</text > </observationRange> </referenceRange> </observation > </component> <component> <observation moodCode="EVN" classCode="OBS"> <templateId root="05.07.840.1.370863.01.08.22.4.2" /> <id nullFlavor="NA" /> <code codeSystem="local" code="PROTEIU " displayName="UA PROTEIN DIPSTICK" /> <statusCode code="completed" /> <effectiveTime value="963695319318" /> <value unit="" xsi: type="PQ" value="1+" /> <interpretationCode codeSystem="local" code="* " /> <referenceRange> <observationRange> <text> NEGATIVE</text> </observationRange> </referenceRange> </observation> </component> <component> <observation moodCode ="EVN" classCode="OBS"> <templateId root= "16.840.1.276596.10..4.2" /> <id nullFlavor="NA" /> < code codeSystem="local" code="DGLUU" displayName="UA GLUCOSE DIPSTICK" /> <statusCode code="completed" /> <effectiveTime value="535633069025 " /> <value unit="" xsi:type="PQ" value="NEGATIVE" /> < referenceRange> <observationRange> <text>NEGATIVE</text > </observationRange> </referenceRange> </observation > </component> <component> <observation moodCode="EVN" classCode="OBS"> <templateId root="05.07.840.1.068833.01.08.22.4.2" /> <id nullFlavor="NA" /> <code codeSystem="local" code="KETONU" displayName="UA KETONE DIPSTICK" /> <statusCode code="completed" /> <effectiveTime value="" /> <value unit="" xsi:type= "PQ" value="1+" /> <interpretationCode codeSystem="local" code="*" /> <referenceRange> <observationRange> <text> NEGATIVE</text> </observationRange> </referenceRange> </observation> </component> <component> <observation moodCode ="EVN" classCode="OBS"> <templateId root= "216.840.1.361454..22.4.2" /> <id nullFlavor="NA" /> < code codeSystem="local" code="UROBILU" displayName="UA UROBILINOGEN DIPSTICK" / > <statusCode code="completed" /> <effectiveTime value= "993773859806" /> <value unit="" xsi:type="PQ" value="NORMAL" /> <referenceRange> <observationRange> <text>NORMAL</ text> </observationRange> </referenceRange> </ observation> </component> <component> <observation moodCode= "EVN" classCode="OBS"> <templateId root="2.16.840.1.149089.10..22.4.2 " /> <id nullFlavor="NA" /> <code codeSystem="local" code= "BILU" displayName="UA BILIRUBIN DIPSTICK" /> <statusCode code= "completed" /> <effectiveTime value="374277833521" /> <value unit="" xsi:type="PQ" value="1+" /> <interpretationCode codeSystem= "local" code="*" /> <referenceRange> <observationRange> <text>NEGATIVE</text> </observationRange> </ referenceRange> </observation> </component> <component> <observation moodCode="EVN" classCode="OBS"> <templateId root= "2.16.840.1.732193.10..22.4.2" /> <id nullFlavor="NA" /> < code codeSystem="local" code="BREANNA" displayName="UA BLOOD DIPSTICK" /> < statusCode code="completed" /> <effectiveTime value="489029465742" /> <value unit="" xsi:type="PQ" value="NEGATIVE" /> < referenceRange> <observationRange> <text>NEGATIVE</text > </observationRange> </referenceRange> </observation > </component> <component> <observation moodCode="EVN" classCode="OBS"> <templateId root="05.07.840.1.201555.10..22.4.2" /> <id nullFlavor="NA" /> <code codeSystem="local" code="SPGRU" displayName="UA SPECIFIC GRAVITY" /> <statusCode code="completed" /> <effectiveTime value="467787796047" /> <value unit="" xsi:type= "PQ" value=">=1.030" /> <interpretationCode codeSystem="local" code= "*" /> <referenceRange> <observationRange> < text>1.015-1.025</text> </observationRange> </referenceRange > </observation> </component> <component> <observation moodCode="EVN" classCode="OBS"> <templateId root= "05.07.840.1.780816.01.08.22.4.2" /> <id nullFlavor="NA" /> < code codeSystem="local" code="CLOVER" displayName="UR PH" /> <statusCode code="completed" /> <effectiveTime value="315584996703" /> < value unit="" xsi:type="PQ" value="5.5" /> <referenceRange> <observationRange> <text>5.0-7.0</text> </ observationRange> </referenceRange> </observation> </ component> </organizer> </entry> <entry> <organizer moodCode="EVN" classCode="BATTERY"> <templateId root="05.07.840.1.968628.10..22.4.1" /> <id nullFlavor="NA" /> <code codeSystem="local" code="UAMICRO" displayName="UA MICROSCOPIC" /> <statusCode code="completed" /> < component> <observation moodCode="EVN" classCode="OBS"> < templateId root="840.1.993880.10..4.2" /> <id nullFlavor="NA " /> <code codeSystem="local" code="BACU" displayName="UA BACTERIA" /> <statusCode code="completed" /> <effectiveTime value= "682380068619" /> <value unit="" xsi:type="PQ" value="2+" /> < interpretationCode codeSystem="local" code="*" /> <referenceRange> <observationRange> <text>NEGATIVE</text> </ observationRange> </referenceRange> </observation> </ component> <component> <observation moodCode="EVN" classCode="OBS"> <templateId root="05.07.840.1.185328.01.08.22.4.2" /> <id nullFlavor="NA" /> <code codeSystem="local" code="EPIU" displayName=" UA EPITHELIAL CELLS" /> <statusCode code="completed" /> < effectiveTime value="" /> <value unit="epi/hpf" xsi:type= "PQ" value="1+" /> <referenceRange> <observationRange> <text>0 - 1+</text> </observationRange> </ referenceRange> </observation> </component> <component> <observation moodCode="EVN" classCode="OBS"> <templateId root= "05.07.840.1.035427.10..4.2" /> <id nullFlavor="NA" /> < code codeSystem="local" code="MUCUSU" displayName="UA MUCUS" /> < statusCode code="completed" /> <effectiveTime value="295508803923" /> <value unit="" xsi:type="PQ" value="4+" /> < interpretationCode codeSystem="local" code="*" /> <referenceRange> <observationRange> <text>NEG TO 1+</text> </ observationRange> </referenceRange> </observation> </ component> <component> <observation moodCode="EVN" classCode="OBS"> <templateId root="216.840.1.421355.10..4.2" /> <id nullFlavor="NA" /> <code codeSystem="local" code="RBCU" displayName=" UA RBC" /> <statusCode code="completed" /> <effectiveTime value="" /> <value unit="rbc/hpf" xsi:type="PQ" value="0-3 " /> <referenceRange> <observationRange> <text> 0 - 3</text> </observationRange> </referenceRange> </ observation> </component> <component> <observation moodCode= "EVN" classCode="OBS"> <templateId root="216.840.1.257927.01.08.22.4.2 " /> <id nullFlavor="NA" /> <code codeSystem="local" code= "UAVOL" displayName="UA VOLUME FOR EXAM" /> <statusCode code="completed " /> <effectiveTime value="" /> <value unit="mL" xsi:type="PQ" value="12.0" /> <referenceRange> < observationRange> <text>(12mL STD)</text> </ observationRange> </referenceRange> </observation> </ component> <component> <observation moodCode="EVN" classCode="OBS"> <templateId root="216.840.1.046008...4.2" /> <id nullFlavor="NA" /> <code codeSystem="local" code="WBCU" displayName=" UA WBC" /> <statusCode code="completed" /> <effectiveTime value="" /> <value unit="wbc/hpf" xsi:type="PQ" value="2-5 " /> <referenceRange> <observationRange> <text> 0 - 5</text> </observationRange> </referenceRange> </ observation> </component> </organizer> </entry> <entry> <organizer moodCode="EVN" classCode="BATTERY"> <templateId root= "05.07.840.1.527595.10.22.4.1" /> <id nullFlavor="NA" /> <code codeSystem="local" code="PREGU" displayName="UR TEST" /> < statusCode code="completed" /> <component> <observation moodCode= "EVN" classCode="OBS"> <templateId root="05.07.840.1.675998.10.22.4.2 " /> <id nullFlavor="NA" /> <code codeSystem="local" code= "PREGU" displayName="UR TEST" /> <statusCode code="completed " /> <effectiveTime value="434061375544" /> <value unit="" xsi :type="PQ" value="NEGATIVE" /> <referenceRange> < observationRange> <text>NEGATIVE</text> </ observationRange> </referenceRange> </observation> </ component> </organizer> </entry> <entry> <organizer moodCode="EVN" classCode="BATTERY"> <templateId root="05.07.840.1.386743.10.22.4.1" /> <id nullFlavor="NA" /> <code codeSystem="local" code="UA" displayName= "URINALYSIS, ROUTINE" /> <statusCode code="completed" /> <component> <observation moodCode="EVN" classCode="OBS"> <templateId root= "05.07.840.1.301314.10.4.2" /> <id nullFlavor="NA" /> < code codeSystem="local" code="LEUESU" displayName="UA LEUKOCYTE ESTERASE DIPSTICK" /> <statusCode code="completed" /> <effectiveTime value="042460168597" /> <value unit="" xsi:type="PQ" value="NEGATIVE" / > <referenceRange> <observationRange> <text> NEGATIVE</text> </observationRange> </referenceRange> </observation> </component> <component> <observation moodCode ="EVN" classCode="OBS"> <templateId root= "216.840.1.597924.01.08.22.4.2" /> <id nullFlavor="NA" /> < code codeSystem="local" code="NITRIU" displayName="UA NITRITE DIPSTICK" /> <statusCode code="completed" /> <effectiveTime value="946266434332 " /> <value unit="" xsi:type="PQ" value="NEGATIVE" /> < referenceRange> <observationRange> <text>NEGATIVE</text > </observationRange> </referenceRange> </observation > </component> <component> <observation moodCode="EVN" classCode="OBS"> <templateId root="216.840.1.016392.10.4.2" /> <id nullFlavor="NA" /> <code codeSystem="local" code="PROTEIU " displayName="UA PROTEIN DIPSTICK" /> <statusCode code="completed" /> <effectiveTime value="510150589990" /> <value unit="" xsi: type="PQ" value="1+" /> <interpretationCode codeSystem="local" code="* " /> <referenceRange> <observationRange> <text> NEGATIVE</text> </observationRange> </referenceRange> </observation> </component> <component> <observation moodCode ="EVN" classCode="OBS"> <templateId root= "216.840.1.919108.10..22.4.2" /> <id nullFlavor="NA" /> < code codeSystem="local" code="DGLUU" displayName="UA GLUCOSE DIPSTICK" /> <statusCode code="completed" /> <effectiveTime value="859363851376 " /> <value unit="" xsi:type="PQ" value="NEGATIVE" /> < referenceRange> <observationRange> <text>NEGATIVE</text > </observationRange> </referenceRange> </observation > </component> <component> <observation moodCode="EVN" classCode="OBS"> <templateId root="216.840.1.286497.10...4.2" /> <id nullFlavor="NA" /> <code codeSystem="local" code="KETONU" displayName="UA KETONE DIPSTICK" /> <statusCode code="completed" /> <effectiveTime value="247536289570" /> <value unit="" xsi:type= "PQ" value="TRACE" /> <interpretationCode codeSystem="local" code="*" / > <referenceRange> <observationRange> <text> NEGATIVE</text> </observationRange> </referenceRange> </observation> </component> <component> <observation moodCode ="EVN" classCode="OBS"> <templateId root= "16.840.1.436209.10..22.4.2" /> <id nullFlavor="NA" /> < code codeSystem="local" code="UROBILU" displayName="UA UROBILINOGEN DIPSTICK" / > <statusCode code="completed" /> <effectiveTime value= "930046526846" /> <value unit="" xsi:type="PQ" value="NORMAL" /> <referenceRange> <observationRange> <text>NORMAL</ text> </observationRange> </referenceRange> </ observation> </component> <component> <observation moodCode= "EVN" classCode="OBS"> <templateId root="16.840.1.898514.10.22.4.2 " /> <id nullFlavor="NA" /> <code codeSystem="local" code= "BILU" displayName="UA BILIRUBIN DIPSTICK" /> <statusCode code= "completed" /> <effectiveTime value="804400790397" /> <value unit="" xsi:type="PQ" value="1+" /> <interpretationCode codeSystem= "local" code="*" /> <referenceRange> <observationRange> <text>NEGATIVE</text> </observationRange> </ referenceRange> </observation> </component> <component> <observation moodCode="EVN" classCode="OBS"> <templateId root= "840.1.208613.01.08.22.4.2" /> <id nullFlavor="NA" /> < code codeSystem="local" code="BREANNA" displayName="UA BLOOD DIPSTICK" /> < statusCode code="completed" /> <effectiveTime value="157992409236" /> <value unit="" xsi:type="PQ" value="NEGATIVE" /> < referenceRange> <observationRange> <text>NEGATIVE</text > </observationRange> </referenceRange> </observation > </component> <component> <observation moodCode="EVN" classCode="OBS"> <templateId root="05.07.840.1.468682.10.2022.4.2" /> <id nullFlavor="NA" /> <code codeSystem="local" code="SPGRU" displayName="UA SPECIFIC GRAVITY" /> <statusCode code="completed" /> <effectiveTime value="415165975924" /> <value unit="" xsi:type= "PQ" value=">=1.030" /> <interpretationCode codeSystem="local" code= "*" /> <referenceRange> <observationRange> < text>1.015-1.025</text> </observationRange> </referenceRange > </observation> </component> <component> <observation moodCode="EVN" classCode="OBS"> <templateId root= "05.07.840.1.654941.10.4.2" /> <id nullFlavor="NA" /> < code codeSystem="local" code="CLOVER" displayName="UR PH" /> <statusCode code="completed" /> <effectiveTime value="090425323650" /> < value unit="" xsi:type="PQ" value="5.5" /> <referenceRange> <observationRange> <text>5.0-7.0</text> </ observationRange> </referenceRange> </observation> </ component> </organizer> </entry> <entry> <organizer moodCode="EVN" classCode="BATTERY"> <templateId root="840.1.666149.01.08.22.4.1" /> <id nullFlavor="NA" /> <code codeSystem="local" code="UAMICRO" displayName="UA MICROSCOPIC" /> <statusCode code="completed" /> < component> <observation moodCode="EVN" classCode="OBS"> < templateId root="840.1.824909.22.4.2" /> <id nullFlavor="NA " /> <code codeSystem="local" code="BACU" displayName="UA BACTERIA" /> <statusCode code="completed" /> <effectiveTime value= "548275856032" /> <value unit="" xsi:type="PQ" value="2+" /> < interpretationCode codeSystem="local" code="*" /> <referenceRange> <observationRange> <text>NEGATIVE</text> </ observationRange> </referenceRange> </observation> </ component> <component> <observation moodCode="EVN" classCode="OBS"> <templateId root="05.07.840.1.054877...4.2" /> <id nullFlavor="NA" /> <code codeSystem="local" code="EPIU" displayName=" UA EPITHELIAL CELLS" /> <statusCode code="completed" /> < effectiveTime value="938969221200" /> <value unit="epi/hpf" xsi:type= "PQ" value="2+" /> <interpretationCode codeSystem="local" code="*" /> <referenceRange> <observationRange> <text>0 - 1 +</text> </observationRange> </referenceRange> </ observation> </component> <component> <observation moodCode= "EVN" classCode="OBS"> <templateId root="05.07.840.1.282267....4.2 " /> <id nullFlavor="NA" /> <code codeSystem="local" code= "MUCUSU" displayName="UA MUCUS" /> <statusCode code="completed" /> <effectiveTime value="194708294699" /> <value unit="" xsi:type= "PQ" value="3+" /> <interpretationCode codeSystem="local" code="*" /> <referenceRange> <observationRange> <text>NEG TO 1+</text> </observationRange> </referenceRange> </ observation> </component> <component> <observation moodCode= "EVN" classCode="OBS"> <templateId root="16.840.1.821989.10..22.4.2 " /> <id nullFlavor="NA" /> <code codeSystem="local" code= "RBCU" displayName="UA RBC" /> <statusCode code="completed" /> <effectiveTime value="[id number]" /> <value unit="rbc/hpf" xsi:type ="PQ" value="0" /> <referenceRange> <observationRange> <text>0 - 3</text> </observationRange> </ referenceRange> </observation> </component> <component> <observation moodCode="EVN" classCode="OBS"> <templateId root= "216.840.1.540772.10..22.4.2" /> <id nullFlavor="NA" /> < code codeSystem="local" code="UAVOL" displayName="UA VOLUME FOR EXAM" /> <statusCode code="completed" /> <effectiveTime value="401545604121" /> <value unit="mL" xsi:type="PQ" value="12.0" /> < referenceRange> <observationRange> <text>(12mL STD)</ text> </observationRange> </referenceRange> </ observation> </component> <component> <observation moodCode= "EVN" classCode="OBS"> <templateId root="216.840.1.235952.10..22.4.2 " /> <id nullFlavor="NA" /> <code codeSystem="local" code= "WBCU" displayName="UA WBC" /> <statusCode code="completed" /> <effectiveTime value="997475126852" /> <value unit="wbc/hpf" xsi:type ="PQ" value="0-1" /> <referenceRange> <observationRange> <text>0 - 5</text> </observationRange> </ referenceRange> </observation> </component> </organizer> </entry > <entry> <organizer moodCode="EVN" classCode="BATTERY"> <templateId root="216.840.1.037030.10.4.1" /> <id nullFlavor="NA" /> <code codeSystem="local" code="PREGU" displayName="UR TEST" /> < statusCode code="completed" /> <component> <observation moodCode= "EVN" classCode="OBS"> <templateId root="16.840.1.898646.01.08.22.4.2 " /> <id nullFlavor="NA" /> <code codeSystem="local" code= "PREGU" displayName="UR TEST" /> <statusCode code="completed " /> <effectiveTime value="755111069890" /> <value unit="" xsi :type="PQ" value="NEGATIVE" /> <referenceRange> < observationRange> <text>NEGATIVE</text> </ observationRange> </referenceRange> </observation> </ component> </organizer> </entry> <entry> <organizer moodCode="EVN" classCode="BATTERY"> <templateId root="16.840.1.143722.01.08.22.4.1" /> <id nullFlavor="NA" /> <code codeSystem="local" code="DRUGAB" displayName="UR DRUGS OF ABUSE SCREEN" /> <statusCode code="completed" /> <component> <observation moodCode="EVN" classCode="OBS"> < templateId root="16.840.1.528816.01.08.22.4.2" /> <id nullFlavor="NA " /> <code codeSystem="local" code="AMPHU" displayName="UR AMPHETAMINES SCREEN" /> <statusCode code="completed" /> < effectiveTime value="" /> <value unit="" xsi:type="PQ" value="NEG (<1000 ng/mL)" /> <referenceRange> < observationRange> <text>NEGATIVE</text> </ observationRange> </referenceRange> </observation> </ component> <component> <observation moodCode="EVN" classCode="OBS"> <templateId root="216.840.1.735464.01.08.22.4.2" /> <id nullFlavor="NA" /> <code codeSystem="local" code="BARBU" displayName= "UR BARBITURATE SCREEN" /> <statusCode code="completed" /> < effectiveTime value="" /> <value unit="" xsi:type="PQ" value="NEG (< 200 ng/mL)" /> <referenceRange> < observationRange> <text>NEGATIVE</text> </ observationRange> </referenceRange> </observation> </ component> <component> <observation moodCode="EVN" classCode="OBS"> <templateId root="216.840.1.077079.01.08.22.4.2" /> <id nullFlavor="NA" /> <code codeSystem="local" code="DAUCOMMENT" displayName="DRUGS OF ABUSE SCREEN COMMENT" /> <statusCode code= "completed" /> <effectiveTime value="" /> <value unit="" xsi:type="PQ" value="" /> <referenceRange> < observationRange> <text /> </observationRange> </referenceRange> </observation> </component> <component> <observation moodCode="EVN" classCode="OBS"> <templateId root= "216.840.1.802042.01.08.22.4.2" /> <id nullFlavor="NA" /> < code codeSystem="local" code="OPIU" displayName="UR OPIATES SCREEN" /> <statusCode code="completed" /> <effectiveTime value="" /> <value unit="" xsi:type="PQ" value="NEG (< 300 ng/mL)" /> <referenceRange> <observationRange> <text>NEGATIVE</ text> </observationRange> </referenceRange> </ observation> </component> <component> <observation moodCode= "EVN" classCode="OBS"> <templateId root="2.16.840.1.621993.10..22.4.2 " /> <id nullFlavor="NA" /> <code codeSystem="local" code= "PCPU" displayName="UR PHENCYCLIDINE (PCP) SCREEN" /> <statusCode code= "completed" /> <effectiveTime value="" /> <value unit="" xsi:type="PQ" value="NEG (< 25 ng/mL)" /> <referenceRange > <observationRange> <text>NEGATIVE</text> </ observationRange> </referenceRange> </observation> </ component> <component> <observation moodCode="EVN" classCode="OBS"> <templateId root="2.16.840.1.564889.10..22.4.2" /> <id nullFlavor="NA" /> <code codeSystem="local" code="THCU" displayName=" UR CANNABINOIDS (THC) SCREEN" /> <statusCode code="completed" /> <effectiveTime value="" /> <value unit="" xsi:type="PQ " value="POS (> 50 ng/mL)" /> <interpretationCode codeSystem= "local" code="*" /> <referenceRange> <observationRange> <text>NEGATIVE</text> </observationRange> </ referenceRange> </observation> </component> <component> <observation moodCode="EVN" classCode="OBS"> <templateId root= "2.16.840.1.696093.10.22.4.2" /> <id nullFlavor="NA" /> < code codeSystem="local" code="COCAU" displayName="UR COCAINE METABOLITE SCREEN" /> <statusCode code="completed" /> <effectiveTime value= "" /> <value unit="" xsi:type="PQ" value="NEG (< 300 ng /mL)" /> <referenceRange> <observationRange> < text>NEGATIVE</text> </observationRange> </referenceRange> </observation> </component> <component> <observation moodCode="EVN" classCode="OBS"> <templateId root= "216.840.1.430546...4.2" /> <id nullFlavor="NA" /> < code codeSystem="local" code="METHU" displayName="UR METHADONE SCREEN" /> <statusCode code="completed" /> <effectiveTime value=" " /> <value unit="" xsi:type="PQ" value="NEG (< 300 ng/mL)" /> <referenceRange> <observationRange> <text>NEGATIVE </text> </observationRange> </referenceRange> </ observation> </component> <component> <observation moodCode= "EVN" classCode="OBS"> <templateId root="2.16.840.1.000784.10..4.2 " /> <id nullFlavor="NA" /> <code codeSystem="local" code= "BENZU" displayName="UR BENZODIAZEPINE SCREEN" /> <statusCode code= "completed" /> <effectiveTime value="" /> <value unit="" xsi:type="PQ" value="NEG (< 200 ng/mL)" /> <referenceRange > <observationRange> <text>NEGATIVE</text> </ observationRange> </referenceRange> </observation> </ component> </organizer> </entry> <entry> <organizer moodCode="EVN" classCode="BATTERY"> <templateId root="16.840.1.871845.10.4.1" /> <id nullFlavor="NA" /> <code codeSystem="local" code="CBCD" displayName="CBC W/DIFF" /> <statusCode code="completed" /> <component > <observation moodCode="EVN" classCode="OBS"> <templateId root= "16.840.1.506753.10..4.2" /> <id nullFlavor="NA" /> < code codeSystem="local" code="EO#" displayName="EOSINOPHIL #" /> < statusCode code="completed" /> <effectiveTime value="729479610289" /> <value unit="k/cumm" xsi:type="PQ" value="0.1" /> < referenceRange> <observationRange> <text>0.1-0.5</text> </observationRange> </referenceRange> </observation > </component> <component> <observation moodCode="EVN" classCode="OBS"> <templateId root="05.07.840.1.882475.10.4.2" /> <id nullFlavor="NA" /> <code codeSystem="local" code="EO% " displayName="EOSINOPHIL %" /> <statusCode code="completed" /> <effectiveTime value="615229698642" /> <value unit="%" xsi: type="PQ" value="2" /> <referenceRange> <observationRange> <text>2-4</text> </observationRange> </ referenceRange> </observation> </component> <component> <observation moodCode="EVN" classCode="OBS"> <templateId root= "05.07.840.1.949319.10.4.2" /> <id nullFlavor="NA" /> < code codeSystem="local" code="GR#" displayName="GRANULOCYTE #" /> < statusCode code="completed" /> <effectiveTime value="513440889996" /> <value unit="k/cumm" xsi:type="PQ" value="3.6" /> < referenceRange> <observationRange> <text>2.0-9.0</text> </observationRange> </referenceRange> </observation > </component> <component> <observation moodCode="EVN" classCode="OBS"> <templateId root="05.07.840.1.141838.01.08.224.2" /> <id nullFlavor="NA" /> <code codeSystem="local" code="GR% " displayName="GRANULOCYTE %" /> <statusCode code="completed" /> <effectiveTime value="117207942007" /> <value unit="%" xsi: type="PQ" value="57" /> <referenceRange> <observationRange> <text>50-75</text> </observationRange> </ referenceRange> </observation> </component> <component> <observation moodCode="EVN" classCode="OBS"> <templateId root= "05.07.840.1.494331.01.08.22.4.2" /> <id nullFlavor="NA" /> < code codeSystem="local" code="LY#" displayName="LYMPHOCYTE #" /> < statusCode code="completed" /> <effectiveTime value="214393212016" /> <value unit="k/cumm" xsi:type="PQ" value="2.2" /> < referenceRange> <observationRange> <text>1.0-4.0</text> </observationRange> </referenceRange> </observation > </component> <component> <observation moodCode="EVN" classCode="OBS"> <templateId root="05.07.840.1.414807.10.2022.4.2" /> <id nullFlavor="NA" /> <code codeSystem="local" code="LY% " displayName="LYMPHOCYTE %" /> <statusCode code="completed" /> <effectiveTime value="271974873798" /> <value unit="%" xsi: type="PQ" value="34" /> <interpretationCode codeSystem="local" code="* " /> <referenceRange> <observationRange> <text> 20-30</text> </observationRange> </referenceRange> </ observation> </component> <component> <observation moodCode= "EVN" classCode="OBS"> <templateId root="05.07.840.1.752388...4.2 " /> <id nullFlavor="NA" /> <code codeSystem="local" code="MCH " displayName="MEAN CELL HGB" /> <statusCode code="completed" /> <effectiveTime value="817972225153" /> <value unit="pg" xsi:type= "PQ" value="27.8" /> <referenceRange> <observationRange> <text>27.0-33.0</text> </observationRange> </ referenceRange> </observation> </component> <component> <observation moodCode="EVN" classCode="OBS"> <templateId root= "05.07.840.1.321135.22.4.2" /> <id nullFlavor="NA" /> < code codeSystem="local" code="MCHC" displayName="MEAN CELL HGB CONCENTRATION" / > <statusCode code="completed" /> <effectiveTime value= "346817464082" /> <value unit="g/dL" xsi:type="PQ" value="32.9" /> <referenceRange> <observationRange> <text>32.0- 37.0</text> </observationRange> </referenceRange> </ observation> </component> <component> <observation moodCode= "EVN" classCode="OBS"> <templateId root="216.840.1.309756.01.08.22.4.2 " /> <id nullFlavor="NA" /> <code codeSystem="local" code="MCV " displayName="MEAN CELL VOLUME" /> <statusCode code="completed" /> <effectiveTime value="786432169298" /> <value unit="fl" xsi:type ="PQ" value="84.4" /> <referenceRange> <observationRange> <text>80.0-100.0</text> </observationRange> </ referenceRange> </observation> </component> <component> <observation moodCode="EVN" classCode="OBS"> <templateId root= "16.840.1.766664.22.4.2" /> <id nullFlavor="NA" /> < code codeSystem="local" code="MO#" displayName="MONOCYTE #" /> < statusCode code="completed" /> <effectiveTime value="937621468948" /> <value unit="k/cumm" xsi:type="PQ" value="0.4" /> < referenceRange> <observationRange> <text>0.1-1.0</text> </observationRange> </referenceRange> </observation > </component> <component> <observation moodCode="EVN" classCode="OBS"> <templateId root="216.840.1.693100.10.22.4.2" /> <id nullFlavor="NA" /> <code codeSystem="local" code="MO% " displayName="MONOCYTE %" /> <statusCode code="completed" /> <effectiveTime value="378363672946" /> <value unit="%" xsi: type="PQ" value="7" /> <interpretationCode codeSystem="local" code="*" /> <referenceRange> <observationRange> <text>4- 6</text> </observationRange> </referenceRange> </ observation> </component> <component> <observation moodCode= "EVN" classCode="OBS"> <templateId root="05.07.840.1.835166.01.08.22.4.2 " /> <id nullFlavor="NA" /> <code codeSystem="local" code="RBC " displayName="RED BLOOD CELL" /> <statusCode code="completed" /> <effectiveTime value="070747067138" /> <value unit="m/cumm" xsi: type="PQ" value="4.68" /> <referenceRange> <observationRange > <text>4.00-6.00</text> </observationRange> </ referenceRange> </observation> </component> <component> <observation moodCode="EVN" classCode="OBS"> <templateId root= "216.840.1.616165.1022.4.2" /> <id nullFlavor="NA" /> < code codeSystem="local" code="RDW" displayName="RED CELL DISTRIBUTION WIDTH" /> <statusCode code="completed" /> <effectiveTime value= "226658480576" /> <value unit="%" xsi:type="PQ" value="13.0" /> <referenceRange> <observationRange> <text>11.0- 15.6</text> </observationRange> </referenceRange> </ observation> </component> <component> <observation moodCode= "EVN" classCode="OBS"> <templateId root="216.840.1.448509.10.20.22.4.2 " /> <id nullFlavor="NA" /> <code codeSystem="local" code="WBC " displayName="WHITE BLOOD CELL" /> <statusCode code="completed" /> <effectiveTime value="882470610259" /> <value unit="k/cumm" xsi: type="PQ" value="6.4" /> <referenceRange> <observationRange > <text>5.0-10.0</text> </observationRange> </ referenceRange> </observation> </component> <component> <observation moodCode="EVN" classCode="OBS"> <templateId root= "216.840.1.408721.10.22.4.2" /> <id nullFlavor="NA" /> < code codeSystem="local" code="HGBT" displayName="HEMOGLOBIN" /> < statusCode code="completed" /> <effectiveTime value="144305926142" /> <value unit="gm/dL" xsi:type="PQ" value="13.0" /> < referenceRange> <observationRange> <text>12.0-16.0</text > </observationRange> </referenceRange> </observation > </component> <component> <observation moodCode="EVN" classCode="OBS"> <templateId root="2.16.840.1.908496.10.20.22.4.2" /> <id nullFlavor="NA" /> <code codeSystem="local" code="HCTT" displayName="HEMATOCRIT" /> <statusCode code="completed" /> < effectiveTime value="696253196215" /> <value unit="%" xsi:type="PQ " value="39.5" /> <referenceRange> <observationRange> <text>37.0-47.0</text> </observationRange> </ referenceRange> </observation> </component> <component> <observation moodCode="EVN" classCode="OBS"> <templateId root= "16.840.1.923946.01.08.22.4.2" /> <id nullFlavor="NA" /> < code codeSystem="local" code="PLT" displayName="PLATELET COUNT" /> < statusCode code="completed" /> <effectiveTime value="407518573118" /> <value unit="k/cumm" xsi:type="PQ" value="252" /> < referenceRange> <observationRange> <text>150-400</text> </observationRange> </referenceRange> </observation > </component> </organizer> </entry> <entry> <organizer moodCode= "EVN" classCode="BATTERY"> <templateId root="16.840.1.860141.01.08.22.4.1 " /> <id nullFlavor="NA" /> <code codeSystem="local" code="LIVER" displayName="HEPATIC FUNCTION PANEL" /> <statusCode code="completed" /> <component> <observation moodCode="EVN" classCode="OBS"> < templateId root="16.840.1.452439.10.4.2" /> <id nullFlavor="NA " /> <code codeSystem="local" code="BILUC" displayName="BILI UNCONJUGATED" /> <statusCode code="completed" /> < effectiveTime value="441271025742" /> <value unit="mg/dL" xsi:type="PQ " value="1.0" /> <interpretationCode codeSystem="local" code="*" /> <referenceRange> <observationRange> <text>0.0-0.7 </text> </observationRange> </referenceRange> </ observation> </component> <component> <observation moodCode= "EVN" classCode="OBS"> <templateId root="216.840.1.896687.10.20.22.4.2 " /> <id nullFlavor="NA" /> <code codeSystem="local" code="AST " displayName="AST/SGOT" /> <statusCode code="completed" /> < effectiveTime value="098856437918" /> <value unit="Units/L" xsi:type= "PQ" value="9" /> <interpretationCode codeSystem="local" code="*" /> <referenceRange> <observationRange> <text>10-37< /text> </observationRange> </referenceRange> </ observation> </component> <component> <observation moodCode= "EVN" classCode="OBS"> <templateId root="216.840.1.945321.10.20.22.4.2 " /> <id nullFlavor="NA" /> <code codeSystem="local" code="ALT " displayName="ALT/SGPT" /> <statusCode code="completed" /> < effectiveTime value="570643888446" /> <value unit="Units/L" xsi:type= "PQ" value="19" /> <referenceRange> <observationRange> <text>< 66</text> </observationRange> </ referenceRange> </observation> </component> <component> <observation moodCode="EVN" classCode="OBS"> <templateId root= "05.07.840.1.147325.10.2022.4.2" /> <id nullFlavor="NA" /> < code codeSystem="local" code="TP" displayName="TOTAL PROTEIN" /> < statusCode code="completed" /> <effectiveTime value="" /> <value unit="gm/dL" xsi:type="PQ" value="7.1" /> < referenceRange> <observationRange> <text>6.4-8.2</text> </observationRange> </referenceRange> </observation > </component> <component> <observation moodCode="EVN" classCode="OBS"> <templateId root="840.1.021251.1022.4.2" /> <id nullFlavor="NA" /> <code codeSystem="local" code="ALB" displayName="ALBUMIN" /> <statusCode code="completed" /> < effectiveTime value="" /> <value unit="gm/dL" xsi:type="PQ " value="3.8" /> <referenceRange> <observationRange> <text>3.4-5.0</text> </observationRange> </ referenceRange> </observation> </component> <component> <observation moodCode="EVN" classCode="OBS"> <templateId root= "05.07.840.1.939106.10.20.22.4.2" /> <id nullFlavor="NA" /> < code codeSystem="local" code="BILTOT" displayName="BILI TOTAL" /> < statusCode code="completed" /> <effectiveTime value="" /> <value unit="mg/dL" xsi:type="PQ" value="1.3" /> < interpretationCode codeSystem="local" code="*" /> <referenceRange> <observationRange> <text>0.0-1.0</text> </ observationRange> </referenceRange> </observation> </ component> <component> <observation moodCode="EVN" classCode="OBS"> <templateId root="16.840.1.291972.10..22.4.2" /> <id nullFlavor="NA" /> <code codeSystem="local" code="ALKP" displayName= "ALKALINE PHOSPHATASE TOTAL" /> <statusCode code="completed" /> <effectiveTime value="425681385248" /> <value unit="IU/L" xsi:type= "PQ" value="60" /> <referenceRange> <observationRange> <text>45-117</text> </observationRange> </ referenceRange> </observation> </component> <component> <observation moodCode="EVN" classCode="OBS"> <templateId root= "05.07.840.1.466773.10...4.2" /> <id nullFlavor="NA" /> < code codeSystem="local" code="BILC" displayName="BILI CONJUGATED" /> < statusCode code="completed" /> <effectiveTime value="408478740035" /> <value unit="mg/dL" xsi:type="PQ" value="0.3" /> < referenceRange> <observationRange> <text>0.0-0.3</text> </observationRange> </referenceRange> </observation > </component> </organizer> </entry> <entry> <organizer moodCode= "EVN" classCode="BATTERY"> <templateId root="05.07.840.1.651678.10..22.4.1 " /> <id nullFlavor="NA" /> <code codeSystem="local" code="MAG" displayName="MAGNESIUM" /> <statusCode code="completed" /> <component > <observation moodCode="EVN" classCode="OBS"> <templateId root= "2.16.840.1.355303.10.20.22.4.2" /> <id nullFlavor="NA" /> < code codeSystem="local" code="MAG" displayName="MAGNESIUM" /> < statusCode code="completed" /> <effectiveTime value="889309187036" /> <value unit="mg/dL" xsi:type="PQ" value="2.2" /> < referenceRange> <observationRange> <text>1.8-2.4</text> </observationRange> </referenceRange> </observation > </component> </organizer> </entry> <entry> <organizer moodCode= "EVN" classCode="BATTERY"> <templateId root="2.16.840.1.762427.10.20.22.4.1 " /> <id nullFlavor="NA" /> <code codeSystem="local" code="TSH" displayName="THYROID STIM HORMONE (TSH)" /> <statusCode code="completed" / > <component> <observation moodCode="EVN" classCode="OBS"> <templateId root="2.16.840.1.348400.10.20.22.4.2" /> <id nullFlavor="NA " /> <code codeSystem="local" code="TSH" displayName="THYROID STIM HORMONE (TSH)" /> <statusCode code="completed" /> < effectiveTime value="899291814431" /> <value unit="uIU/mL" xsi:type="PQ " value="0.82" /> <referenceRange> <observationRange> <text>0.46-4.13</text> </observationRange> </ referenceRange> </observation> </component> </organizer> </entry > <entry> <organizer moodCode="EVN" classCode="BATTERY"> <templateId root="16.840.1.521998.10..4.1" /> <id nullFlavor="NA" /> <code codeSystem="local" code="LIP" displayName="LIPASE" /> <statusCode code= "completed" /> <component> <observation moodCode="EVN" classCode= "OBS"> <templateId root="840.1.686352.01.08.22.4.2" /> < id nullFlavor="NA" /> <code codeSystem="local" code="LIP" displayName= "LIPASE" /> <statusCode code="completed" /> <effectiveTime value="056994857907" /> <value unit="Units/L" xsi:type="PQ" value="180 " /> <referenceRange> <observationRange> <text> 73-393</text> </observationRange> </referenceRange> < /observation> </component> </organizer> </entry> <entry> < organizer moodCode="EVN" classCode="BATTERY"> <templateId root= "840.1.257862.01.08.22.4.1" /> <id nullFlavor="NA" /> <code codeSystem="local" code="PREALB" displayName="PREALBUMIN" /> <statusCode code="completed" /> <component> <observation moodCode="EVN" classCode="OBS"> <templateId root="05.07.840.1.378853.01.08.22.4.2" /> <id nullFlavor="NA" /> <code codeSystem="local" code="PREALB" displayName="PREALBUMIN" /> <statusCode code="completed" /> < effectiveTime value="939723755422" /> <value unit="mg/dL" xsi:type="PQ " value="24" /> <referenceRange> <observationRange> <text>20-40</text> </observationRange> </ referenceRange> </observation> </component> </organizer> </entry > <entry> <organizer moodCode="EVN" classCode="BATTERY"> <templateId root="16.840.1.795246.10..22.4.1" /> <id nullFlavor="NA" /> <code codeSystem="local" code="iCHEM8" displayName="CHEM/HEM PROFILE-BEDSIDE" /> <statusCode code="completed" /> <component> <observation moodCode= "EVN" classCode="OBS"> <templateId root="05.07.840.1.380102.10...4.2 " /> <id nullFlavor="NA" /> <code codeSystem="local" code="K" displayName="POTASSIUM" /> <statusCode code="completed" /> < effectiveTime value="142184050127" /> <value unit="mmol/L" xsi:type="PQ " value="3.6" /> <referenceRange> <observationRange> <text>3.5-5.3</text> </observationRange> </ referenceRange> </observation> </component> <component> <observation moodCode="EVN" classCode="OBS"> <templateId root= "05.07.840.1.826427.10...4.2" /> <id nullFlavor="NA" /> < code codeSystem="local" code="CMETHOD" displayName="METHOD" /> < statusCode code="completed" /> <effectiveTime value="446095142642" /> <value unit="" xsi:type="PQ" value="Bedside" /> < referenceRange> <observationRange> <text /> < /observationRange> </referenceRange> </observation> </ component> <component> <observation moodCode="EVN" classCode="OBS"> <templateId root="216.840.1.643249.22.4.2" /> <id nullFlavor="NA" /> <code codeSystem="local" code="GAP" displayName= "ANION GAP" /> <statusCode code="completed" /> <effectiveTime value="994240590052" /> <value unit="mmol/L" xsi:type="PQ" value="19" / > <referenceRange> <observationRange> <text>10- 20</text> </observationRange> </referenceRange> </ observation> </component> <component> <observation moodCode= "EVN" classCode="OBS"> <templateId root="216.840.1.884203.01.08.22.4.2 " /> <id nullFlavor="NA" /> <code codeSystem="local" code= "HMETHOD" displayName="METHOD" /> <statusCode code="completed" /> <effectiveTime value="994884288276" /> <value unit="" xsi:type="PQ " value="Bedside" /> <referenceRange> <observationRange> <text /> </observationRange> </referenceRange> </observation> </component> <component> <observation moodCode="EVN" classCode="OBS"> <templateId root= "16.840.1.676729.10.22.4.2" /> <id nullFlavor="NA" /> < code codeSystem="local" code="GLU" displayName="GLUCOSE" /> < statusCode code="completed" /> <effectiveTime value="567428210482" /> <value unit="mg/dL" xsi:type="PQ" value="75" /> < referenceRange> <observationRange> <text>70-99</text> </observationRange> </referenceRange> </observation> </component> <component> <observation moodCode="EVN" classCode= "OBS"> <templateId root="216.840.1.270885.10..22.4.2" /> < id nullFlavor="NA" /> <code codeSystem="local" code="BUN" displayName= "BLOOD UREA NITROGEN" /> <statusCode code="completed" /> < effectiveTime value="545166166805" /> <value unit="mg/dL" xsi:type="PQ " value="17" /> <referenceRange> <observationRange> <text>7-20</text> </observationRange> </referenceRange > </observation> </component> <component> <observation moodCode="EVN" classCode="OBS"> <templateId root= "2.840.1.649279.01.08.22.4.2" /> <id nullFlavor="NA" /> < code codeSystem="local" code="CREAT" displayName="CREATININE" /> < statusCode code="completed" /> <effectiveTime value="200427302285" /> <value unit="mg/dL" xsi:type="PQ" value="0.9" /> < referenceRange> <observationRange> <text>0.6-1.0</text> </observationRange> </referenceRange> </observation > </component> <component> <observation moodCode="EVN" classCode="OBS"> <templateId root="216.840.1.664785....4.2" /> <id nullFlavor="NA" /> <code codeSystem="local" code="HGBT" displayName="HEMOGLOBIN" /> <statusCode code="completed" /> < effectiveTime value="[id number]" /> <value unit="gm/dL" xsi:type="PQ " value="12.2" /> <referenceRange> <observationRange> <text>12.0-16.0</text> </observationRange> </ referenceRange> </observation> </component> <component> <observation moodCode="EVN" classCode="OBS"> <templateId root= "216.840.1.538706.10..22.4.2" /> <id nullFlavor="NA" /> < code codeSystem="local" code="HCTT" displayName="HEMATOCRIT" /> < statusCode code="completed" /> <effectiveTime value="801908269642" /> <value unit="%" xsi:type="PQ" value="36.0" /> < interpretationCode codeSystem="local" code="*" /> <referenceRange> <observationRange> <text>37.0-47.0</text> </ observationRange> </referenceRange> </observation> </ component> <component> <observation moodCode="EVN" classCode="OBS"> <templateId root="05.07.840.1.261100.01.08.22.4.2" /> <id nullFlavor="NA" /> <code codeSystem="local" code="NA" displayName= "SODIUM" /> <statusCode code="completed" /> <effectiveTime value="237517624194" /> <value unit="mmol/L" xsi:type="PQ" value="142" /> <referenceRange> <observationRange> <text> 135-148</text> </observationRange> </referenceRange> </observation> </component> <component> <observation moodCode= "EVN" classCode="OBS"> <templateId root="16.840.1.068959.10..22.4.2 " /> <id nullFlavor="NA" /> <code codeSystem="local" code="CL " displayName="CHLORIDE" /> <statusCode code="completed" /> < effectiveTime value="904008542865" /> <value unit="mmol/L" xsi:type="PQ " value="104" /> <referenceRange> <observationRange> <text>98-110</text> </observationRange> </ referenceRange> </observation> </component> <component> <observation moodCode="EVN" classCode="OBS"> <templateId root= "216.840.1.777440.10.20.22.4.2" /> <id nullFlavor="NA" /> < code codeSystem="local" code="CO2" displayName="CARBON DIOXIDE" /> < statusCode code="completed" /> <effectiveTime value="060653589580" /> <value unit="mmol/L" xsi:type="PQ" value="23" /> < referenceRange> <observationRange> <text>21-32</text> </observationRange> </referenceRange> </observation> </component> <component> <observation moodCode="EVN" classCode= "OBS"> <templateId root="216.840.1.900059.10.20.22.4.2" /> < id nullFlavor="NA" /> <code codeSystem="local" code="CAION" displayName ="CALCIUM IONIZED" /> <statusCode code="completed" /> < effectiveTime value="124418329991" /> <value unit="mg/dL" xsi:type="PQ " value="4.5" /> <referenceRange> <observationRange> <text>4.5-5.3</text> </observationRange> </ referenceRange> </observation> </component> </organizer> </entry > <entry> <organizer moodCode="EVN" classCode="BATTERY"> <templateId root="840.1.746067.22.4.1" /> <id nullFlavor="NA" /> <code codeSystem="local" code="CAION" displayName="CALCIUM IONIZED" /> < statusCode code="completed" /> <component> <observation moodCode= "EVN" classCode="OBS"> <templateId root="840.1.878969.22.4.2 " /> <id nullFlavor="NA" /> <code codeSystem="local" code= "CAION" displayName="CALCIUM IONIZED" /> <statusCode code="completed" / > <effectiveTime value="" /> <value unit="mg/dL" xsi:type="PQ" value="4.8" /> <referenceRange> < observationRange> <text>4.5-5.3</text> </ observationRange> </referenceRange> </observation> </ component> </organizer> </entry> <entry> <organizer moodCode="EVN" classCode="BATTERY"> <templateId root="840.1.874280.22.4.1" /> <id nullFlavor="NA" /> <code codeSystem="local" code="METABC" displayName="METABOLIC PANEL, COMPREHN" /> <statusCode code="completed" /> <component> <observation moodCode="EVN" classCode="OBS"> < templateId root="840.1.726958.22.4.2" /> <id nullFlavor="NA " /> <code codeSystem="local" code="K" displayName="POTASSIUM" /> <statusCode code="completed" /> <effectiveTime value=" " /> <value unit="mmol/L" xsi:type="PQ" value="4.1" /> < referenceRange> <observationRange> <text>3.5-5.3</text> </observationRange> </referenceRange> </observation > </component> <component> <observation moodCode="EVN" classCode="OBS"> <templateId root="216.840.1.489324.10..22.4.2" /> <id nullFlavor="NA" /> <code codeSystem="local" code="eGFR" displayName="EST GFR (MDRD)" /> <statusCode code="completed" /> <effectiveTime value="" /> <value unit="mL/min" xsi:type ="PQ" value="> 60" /> <referenceRange> <observationRange > <text>> 59</text> </observationRange> </ referenceRange> </observation> </component> <component> <observation moodCode="EVN" classCode="OBS"> <templateId root= "05.07.840.1.155540.10...4.2" /> <id nullFlavor="NA" /> < code codeSystem="local" code="GAP" displayName="ANION GAP" /> < statusCode code="completed" /> <effectiveTime value="" /> <value unit="mmol/L" xsi:type="PQ" value="6" /> < referenceRange> <observationRange> <text>5-15</text> </observationRange> </referenceRange> </observation> </component> <component> <observation moodCode="EVN" classCode= "OBS"> <templateId root="05.07.840.1.431969.10..22.4.2" /> < id nullFlavor="NA" /> <code codeSystem="local" code="eCrCl" displayName ="EST CrCl (CG)" /> <statusCode code="completed" /> < effectiveTime value="" /> <value unit="mL/min" xsi:type="PQ " value="> 60" /> <referenceRange> <observationRange> <text>> 59</text> </observationRange> </ referenceRange> </observation> </component> <component> <observation moodCode="EVN" classCode="OBS"> <templateId root= "05.07.840.1.056837.10..22.4.2" /> <id nullFlavor="NA" /> < code codeSystem="local" code="GLU" displayName="GLUCOSE" /> < statusCode code="completed" /> <effectiveTime value="" /> <value unit="mg/dL" xsi:type="PQ" value="73" /> < referenceRange> <observationRange> <text>70-99</text> </observationRange> </referenceRange> </observation> </component> <component> <observation moodCode="EVN" classCode= "OBS"> <templateId root="05.07.840.1.972460.01.08.22.4.2" /> < id nullFlavor="NA" /> <code codeSystem="local" code="CA" displayName= "CALCIUM" /> <statusCode code="completed" /> <effectiveTime value="" /> <value unit="mg/dL" xsi:type="PQ" value="8.6" / > <referenceRange> <observationRange> <text>8.5 -10.1</text> </observationRange> </referenceRange> </ observation> </component> <component> <observation moodCode= "EVN" classCode="OBS"> <templateId root="05.07.840.1.007957..22.4.2 " /> <id nullFlavor="NA" /> <code codeSystem="local" code="BUN " displayName="BLOOD UREA NITROGEN" /> <statusCode code="completed" /> <effectiveTime value="" /> <value unit="mg/dL" xsi:type="PQ" value="9" /> <referenceRange> < observationRange> <text>7-20</text> </observationRange> </referenceRange> </observation> </component> < component> <observation moodCode="EVN" classCode="OBS"> < templateId root="2.16.840.1.218836.10..22.4.2" /> <id nullFlavor="NA " /> <code codeSystem="local" code="CREAT" displayName="CREATININE" /> <statusCode code="completed" /> <effectiveTime value= "" /> <value unit="mg/dL" xsi:type="PQ" value="0.9" /> <referenceRange> <observationRange> <text>0.6-1.0< /text> </observationRange> </referenceRange> </ observation> </component> <component> <observation moodCode= "EVN" classCode="OBS"> <templateId root="2.16.840.1.785188.10..22.4.2 " /> <id nullFlavor="NA" /> <code codeSystem="local" code="NA " displayName="SODIUM" /> <statusCode code="completed" /> < effectiveTime value="" /> <value unit="mmol/L" xsi:type="PQ " value="141" /> <referenceRange> <observationRange> <text>135-148</text> </observationRange> </ referenceRange> </observation> </component> <component> <observation moodCode="EVN" classCode="OBS"> <templateId root= "216.840.1.024112.10..22.4.2" /> <id nullFlavor="NA" /> < code codeSystem="local" code="CL" displayName="CHLORIDE" /> < statusCode code="completed" /> <effectiveTime value="" /> <value unit="mmol/L" xsi:type="PQ" value="107" /> < referenceRange> <observationRange> <text>98-110</text> </observationRange> </referenceRange> </observation> </component> <component> <observation moodCode="EVN" classCode ="OBS"> <templateId root="216.840.1.074241...4.2" /> < id nullFlavor="NA" /> <code codeSystem="local" code="AST" displayName= "AST/SGOT" /> <statusCode code="completed" /> <effectiveTime value="" /> <value unit="Units/L" xsi:type="PQ" value="10" /> <referenceRange> <observationRange> <text>10 -37</text> </observationRange> </referenceRange> </ observation> </component> <component> <observation moodCode= "EVN" classCode="OBS"> <templateId root="216.840.1.641825.10.4.2 " /> <id nullFlavor="NA" /> <code codeSystem="local" code="ALT " displayName="ALT/SGPT" /> <statusCode code="completed" /> < effectiveTime value="" /> <value unit="Units/L" xsi:type= "PQ" value="16" /> <referenceRange> <observationRange> <text>< 66</text> </observationRange> </ referenceRange> </observation> </component> <component> <observation moodCode="EVN" classCode="OBS"> <templateId root= "216.840.1.626167.10...4.2" /> <id nullFlavor="NA" /> < code codeSystem="local" code="CO2" displayName="CARBON DIOXIDE" /> < statusCode code="completed" /> <effectiveTime value="" /> <value unit="mmol/L" xsi:type="PQ" value="28" /> < referenceRange> <observationRange> <text>21-32</text> </observationRange> </referenceRange> </observation> </component> <component> <observation moodCode="EVN" classCode= "OBS"> <templateId root="16.840.1.138940.01.08.22.4.2" /> < id nullFlavor="NA" /> <code codeSystem="local" code="TP" displayName= "TOTAL PROTEIN" /> <statusCode code="completed" /> < effectiveTime value="" /> <value unit="gm/dL" xsi:type="PQ " value="6.4" /> <referenceRange> <observationRange> <text>6.4-8.2</text> </observationRange> </ referenceRange> </observation> </component> <component> <observation moodCode="EVN" classCode="OBS"> <templateId root= "16.840.1.406534.10..22.4.2" /> <id nullFlavor="NA" /> < code codeSystem="local" code="ALB" displayName="ALBUMIN" /> < statusCode code="completed" /> <effectiveTime value="" /> <value unit="gm/dL" xsi:type="PQ" value="3.3" /> < interpretationCode codeSystem="local" code="*" /> <referenceRange> <observationRange> <text>3.4-5.0</text> </ observationRange> </referenceRange> </observation> </ component> <component> <observation moodCode="EVN" classCode="OBS"> <templateId root="216.840.1.184571.10...4.2" /> <id nullFlavor="NA" /> <code codeSystem="local" code="BILTOT" displayName= "BILI TOTAL" /> <statusCode code="completed" /> < effectiveTime value="" /> <value unit="mg/dL" xsi:type="PQ " value="1.6" /> <interpretationCode codeSystem="local" code="*" /> <referenceRange> <observationRange> <text>0.0-1.0 </text> </observationRange> </referenceRange> </ observation> </component> <component> <observation moodCode= "EVN" classCode="OBS"> <templateId root="16.840.1.422679...4.2 " /> <id nullFlavor="NA" /> <code codeSystem="local" code= "ALKP" displayName="ALKALINE PHOSPHATASE TOTAL" /> <statusCode code= "completed" /> <effectiveTime value="" /> <value unit="IU/L" xsi:type="PQ" value="56" /> <referenceRange> < observationRange> <text>45-117</text> </observationRange > </referenceRange> </observation> </component> </ organizer> </entry> <entry> <organizer moodCode="EVN" classCode="BATTERY"> <templateId root="216.840.1.890589.10..4.1" /> <id nullFlavor= "NA" /> <code codeSystem="local" code="PHOS" displayName="PHOSPHORUS" /> <statusCode code="completed" /> <component> <observation moodCode="EVN" classCode="OBS"> <templateId root= "16.840.1.527973.10..22.4.2" /> <id nullFlavor="NA" /> < code codeSystem="local" code="PHOS" displayName="PHOSPHORUS" /> < statusCode code="completed" /> <effectiveTime value="" /> <value unit="mg/dL" xsi:type="PQ" value="3.5" /> < referenceRange> <observationRange> <text>2.5-4.9</text> </observationRange> </referenceRange> </observation > </component> </organizer> </entry> <entry> <organizer moodCode= "EVN" classCode="BATTERY"> <templateId root="840.1.995028.10...4.1 " /> <id nullFlavor="NA" /> <code codeSystem="local" code="MAG" displayName="MAGNESIUM" /> <statusCode code="completed" /> <component > <observation moodCode="EVN" classCode="OBS"> <templateId root= "05.07.840.1.921740.1022.4.2" /> <id nullFlavor="NA" /> < code codeSystem="local" code="MAG" displayName="MAGNESIUM" /> < statusCode code="completed" /> <effectiveTime value="" /> <value unit="mg/dL" xsi:type="PQ" value="2.1" /> < referenceRange> <observationRange> <text>1.8-2.4</text> </observationRange> </referenceRange> </observation > </component> </organizer> </entry> <entry> <organizer moodCode= "EVN" classCode="BATTERY"> <templateId root="216.840.1.035448.10..4.1 " /> <id nullFlavor="NA" /> <code codeSystem="local" code="[id number]" displayName="URINE (CTS IF INDICATED)" /> <statusCode code="completed" /> <component> <observation moodCode="EVN" classCode="OBS"> < templateId root="216.840.1.490611...4.2" /> <id nullFlavor="NA " /> <code codeSystem="local" code="GLUCOSE " displayName="GLUCOSE " / > <statusCode code="completed" /> <effectiveTime value= "907282850540" /> <value unit="" xsi:type="PQ" value="norm" /> <referenceRange> <observationRange> <text>NORMAL: NEGATIVE</text> </observationRange> </referenceRange> </observation> </component> <component> <observation moodCode ="EVN" classCode="OBS"> <templateId root= "16.840.1.827824.10...4.2" /> <id nullFlavor="NA" /> < code codeSystem="local" code="WBC " displayName="WBC " /> <statusCode code="completed" /> <effectiveTime value="491591100681" /> < value unit="" xsi:type="PQ" value="5-7" /> <referenceRange> <observationRange> <text>NRG</text> </observationRange> </referenceRange> </observation> </component> < component> <observation moodCode="EVN" classCode="OBS"> < templateId root="05.07.840.1.865197.22.4.2" /> <id nullFlavor="NA " /> <code codeSystem="local" code="URINE(CTSIFINDICATED)" displayName= "URINE(CTSIFINDICATED)" /> <statusCode code="completed" /> < effectiveTime value="509000881813" /> <value unit="" xsi:type="PQ" value="" /> <referenceRange> <observationRange> <text>NRG</text> </observationRange> </referenceRange> </observation> </component> <component> <observation moodCode="EVN" classCode="OBS"> <templateId root= "216.840.1.705535.01.08.22.4.2" /> <id nullFlavor="NA" /> < code codeSystem="local" code="URINECOLLECT" displayName=" URINE COLLECT" /> <statusCode code="completed" /> <effectiveTime value= "829379584975" /> <value unit="" xsi:type="PQ" value="UNKNOWN" /> <referenceRange> <observationRange> <text>NRG</text > </observationRange> </referenceRange> </observation > </component> <component> <observation moodCode="EVN" classCode="OBS"> <templateId root="16.840.1.777848.01.08.22.4.2" /> <id nullFlavor="NA" /> <code codeSystem="local" code="COLOR" displayName=" COLOR" /> <statusCode code="completed" /> < effectiveTime value="" /> <value unit="" xsi:type="PQ" value="STRAW" /> <referenceRange> <observationRange> <text>NORMAL:YELLOW</text> </observationRange> </ referenceRange> </observation> </component> <component> <observation moodCode="EVN" classCode="OBS"> <templateId root= "16.840.1.244735.10.22.4.2" /> <id nullFlavor="NA" /> < code codeSystem="local" code="CLARITY" displayName=" CLARITY" /> < statusCode code="completed" /> <effectiveTime value="398756052546" /> <value unit="" xsi:type="PQ" value="CLOUDY" /> <referenceRange > <observationRange> <text>NORMAL:CLEAR</text> </observationRange> </referenceRange> </observation> </ component> <component> <observation moodCode="EVN" classCode="OBS"> <templateId root="16.840.1.339376.22.4.2" /> <id nullFlavor="NA" /> <code codeSystem="local" code="SPGRAVITY" displayName=" SP GRAVITY" /> <statusCode code="completed" /> < effectiveTime value="027337085037" /> <value unit="" xsi:type="PQ" value="1.010" /> <referenceRange> <observationRange> <text>NRG</text> </observationRange> </referenceRange > </observation> </component> <component> <observation moodCode="EVN" classCode="OBS"> <templateId root= "05.07.840.1.229038.1022.4.2" /> <id nullFlavor="NA" /> < code codeSystem="local" code="PH" displayName=" PH" /> <statusCode code ="completed" /> <effectiveTime value="" /> <value unit="" xsi:type="PQ" value="8" /> <referenceRange> < observationRange> <text>NORMAL:5 - 8</text> </ observationRange> </referenceRange> </observation> </ component> <component> <observation moodCode="EVN" classCode="OBS"> <templateId root="216.840.1.867867.10..4.2" /> <id nullFlavor="NA" /> <code codeSystem="local" code="LEUKOESTERAS" displayName=" LEUKOESTERAS" /> <statusCode code="completed" /> <effectiveTime value="" /> <value unit="" xsi:type="PQ" value="25 Vineet/uL" /> <referenceRange> <observationRange> <text>NORMAL:NEGATIVE</text> </observationRange> </referenceRange> </observation> </component> <component> <observation moodCode="EVN" classCode="OBS"> <templateId root= "216.840.1.927250.01.08.22.4.2" /> <id nullFlavor="NA" /> < code codeSystem="local" code="NITRITE" displayName=" NITRITE" /> < statusCode code="completed" /> <effectiveTime value="" /> <value unit="" xsi:type="PQ" value="neg" /> <referenceRange> <observationRange> <text>NORMAL:NEGATIVE</text> </observationRange> </referenceRange> </observation> </ component> <component> <observation moodCode="EVN" classCode="OBS"> <templateId root="16.840.1.946964.10..4.2" /> <id nullFlavor="NA" /> <code codeSystem="local" code="PROTEIN" displayName= " PROTEIN" /> <statusCode code="completed" /> <effectiveTime value="942146717357" /> <value unit="" xsi:type="PQ" value="neg" /> <referenceRange> <observationRange> <text>NORMAL: NEGATIVE</text> </observationRange> </referenceRange> </observation> </component> <component> <observation moodCode ="EVN" classCode="OBS"> <templateId root= "16.840.1.435627.01.08.22.4.2" /> <id nullFlavor="NA" /> < code codeSystem="local" code="KETONES" displayName=" KETONES" /> < statusCode code="completed" /> <effectiveTime value="" /> <value unit="" xsi:type="PQ" value="neg" /> <referenceRange> <observationRange> <text>NORMAL:NEGATIVE</text> </observationRange> </referenceRange> </observation> </ component> <component> <observation moodCode="EVN" classCode="OBS"> <templateId root="05.07.840.1.050872.01.08.22.4.2" /> <id nullFlavor="NA" /> <code codeSystem="local" code="UROBILINOGEN" displayName=" UROBILINOGEN" /> <statusCode code="completed" /> <effectiveTime value="" /> <value unit="" xsi:type="PQ" value="norm" /> <referenceRange> <observationRange> <text>NORMAL:NEGATIVE</text> </observationRange> </ referenceRange> </observation> </component> <component> <observation moodCode="EVN" classCode="OBS"> <templateId root= "05.07.840.1.550945.1022.4.2" /> <id nullFlavor="NA" /> < code codeSystem="local" code="BILIRUBIN" displayName=" BILIRUBIN" /> < statusCode code="completed" /> <effectiveTime value="" /> <value unit="" xsi:type="PQ" value="neg" /> <referenceRange> <observationRange> <text>NORMAL:NEGATIVE</text> </observationRange> </referenceRange> </observation> </ component> <component> <observation moodCode="EVN" classCode="OBS"> <templateId root="16.840.1.260419.10.22.4.2" /> <id nullFlavor="NA" /> <code codeSystem="local" code="BLOOD" displayName=" BLOOD" /> <statusCode code="completed" /> <effectiveTime value ="" /> <value unit="" xsi:type="PQ" value="neg" /> <referenceRange> <observationRange> <text>NORMAL: NEGATIVE</text> </observationRange> </referenceRange> </observation> </component> <component> <observation moodCode ="EVN" classCode="OBS"> <templateId root= "840.1.483359.10.4.2" /> <id nullFlavor="NA" /> < code codeSystem="local" code="MICROSCOPIC" displayName=" MICROSCOPIC" /> <statusCode code="completed" /> <effectiveTime value="251957426794" /> <value unit="" xsi:type="PQ" value="SEE BELOW" /> < referenceRange> <observationRange> <text>NRG</text> </observationRange> </referenceRange> </observation> </component> <component> <observation moodCode="EVN" classCode= "OBS"> <templateId root="05.07.840.1.509503.22.4.2" /> < id nullFlavor="NA" /> <code codeSystem="local" code="EPITHELIAL" displayName=" EPITHELIAL" /> <statusCode code="completed" /> < effectiveTime value="" /> <value unit="" xsi:type="PQ" value=">15 SQ EPI" /> <referenceRange> <observationRange > <text>NRG</text> </observationRange> </ referenceRange> </observation> </component> <component> <observation moodCode="EVN" classCode="OBS"> <templateId root= "16.840.1.780447.10..4.2" /> <id nullFlavor="NA" /> < code codeSystem="local" code="BACTERIA" displayName=" BACTERIA" /> < statusCode code="completed" /> <effectiveTime value="" /> <value unit="" xsi:type="PQ" value="MODERA" /> <referenceRange > <observationRange> <text>NRG</text> </ observationRange> </referenceRange> </observation> </ component> <component> <observation moodCode="EVN" classCode="OBS"> <templateId root="840.1.818882.10.4.2" /> <id nullFlavor="NA" /> <code codeSystem="local" code="CULTURE" displayName= " CULTURE" /> <statusCode code="completed" /> <effectiveTime value="" /> <value unit="" xsi:type="PQ" value="NOT INDICATED" /> <referenceRange> <observationRange> <text>NRG</text> </observationRange> </referenceRange> </observation> </component> <component> <observation moodCode="EVN" classCode="OBS"> <templateId root= "840.1.118481.10.4.2" /> <id nullFlavor="NA" /> < code codeSystem="local" code="CRYSTALS" displayName=" CRYSTALS" /> < statusCode code="completed" /> <effectiveTime value="864858115383" /> <value unit="" xsi:type="PQ" value="SEE BELOW" /> < referenceRange> <observationRange> <text>NRG</text> </observationRange> </referenceRange> </observation> </component> <component> <observation moodCode="EVN" classCode= "OBS"> <templateId root="05.07.840.1.779211.01.08.22.4.2" /> < id nullFlavor="NA" /> <code codeSystem="local" code="AMORPHOUS" displayName=" AMORPHOUS" /> <statusCode code="completed" /> < effectiveTime value="876480941438" /> <value unit="" xsi:type="PQ" value="FEW" /> <referenceRange> <observationRange> <text>NORMAL: NONE SEEN</text> </observationRange> </ referenceRange> </observation> </component> </organizer> </entry > <entry> <organizer moodCode="EVN" classCode="BATTERY"> <templateId root="05.07.840.1.107467.01.08.22.4.1" /> <id nullFlavor="NA" /> <code codeSystem="local" code="[id number]" displayName="[place]" /> <statusCode code="completed" /> <component> <observation moodCode="EVN" classCode="OBS"> <templateId root="05.07.840.1.990098.10..4.2" /> <id nullFlavor="NA" /> <code codeSystem="local" code="[id number] " displayName="Clue Cells" /> <statusCode code="completed" /> <effectiveTime value="249871079787" /> <value unit="" xsi:type="PQ" value="Not Observed" /> <referenceRange> <observationRange> <text>Not Observed</text> </observationRange> </referenceRange> </observation> </component> <component> <observation moodCode="EVN" classCode="OBS"> <templateId root= "216.840.1.421334.10.4.2" /> <id nullFlavor="NA" /> < code codeSystem="local" code="[id number]" displayName="Trichomonas" /> < statusCode code="completed" /> <effectiveTime value="312823793933" /> <value unit="" xsi:type="PQ" value="Not Observed" /> < referenceRange> <observationRange> <text>Not Observed</ text> </observationRange> </referenceRange> </ observation> </component> <component> <observation moodCode= "EVN" classCode="OBS"> <templateId root="2.840.1.234931.01.08.22.4.2 " /> <id nullFlavor="NA" /> <code codeSystem="local" code= "[id number]" displayName="Yeast" /> <statusCode code="completed" /> <effectiveTime value="623097168296" /> <value unit="" xsi:type="PQ " value="Not Observed" /> <referenceRange> <observationRange > <text>Not Observed</text> </observationRange> </referenceRange> </observation> </component> </organizer> </ entry> <entry> <organizer moodCode="EVN" classCode="BATTERY"> < templateId root="216.840.1.238930.10.4.1" /> <id nullFlavor="NA" /> <code codeSystem="local" code="725244" displayName="Chlamydia/GC Amplification" /> <statusCode code="completed" /> <component> < observation moodCode="EVN" classCode="OBS"> <templateId root= "840.1.279930.10.4.2" /> <id nullFlavor="NA" /> < code codeSystem="local" code="239229" displayName="CHLAMYDIA TRACHOMATIS, MELISSA" / > <statusCode code="completed" /> <effectiveTime value= "[id number]" /> <value unit="" xsi:type="PQ" value="NEGATIVE" /> <referenceRange> <observationRange> <text>NEGATIVE </text> </observationRange> </referenceRange> </ observation> </component> <component> <observation moodCode= "EVN" classCode="OBS"> <templateId root="840.1.799105.01.08.22.4.2 " /> <id nullFlavor="NA" /> <code codeSystem="local" code= "353950" displayName="NEISSERIA GONORRHOEAE, MELISSA" /> <statusCode code= "completed" /> <effectiveTime value="517038114363" /> <value unit="" xsi:type="PQ" value="NEGATIVE" /> <referenceRange> < observationRange> <text>NEGATIVE</text> </ observationRange> </referenceRange> </observation> </ component> </organizer> </entry> <entry> <organizer moodCode="EVN" classCode="BATTERY"> <templateId root="840.1.890211.10.4.1" /> <id nullFlavor="NA" /> <code codeSystem="local" code="307918" displayName="Chlamydia/GC Amplification" /> <statusCode code="completed" / > <component> <observation moodCode="EVN" classCode="OBS"> <templateId root="840.1.334821.1022.4.2" /> <id nullFlavor="NA " /> <code codeSystem="local" code="188386" displayName="Chlamydia trachomatis, MELISSA" /> <statusCode code="completed" /> < effectiveTime value="370263831969" /> <value unit="" xsi:type="PQ" value="Negative" /> <referenceRange> <observationRange> <text>Negative</text> </observationRange> </ referenceRange> </observation> </component> <component> <observation moodCode="EVN" classCode="OBS"> <templateId root= "05.07.840.1.670119.10.4.2" /> <id nullFlavor="NA" /> < code codeSystem="local" code="609355" displayName="Neisseria gonorrhoeae, MELISSA" / > <statusCode code="completed" /> <effectiveTime value= "429806593860" /> <value unit="" xsi:type="PQ" value="Negative" /> <referenceRange> <observationRange> <text>Negative </text> </observationRange> </referenceRange> </ observation> </component> </organizer> </entry> <entry> <organizer moodCode="EVN" classCode="BATTERY"> <templateId root= "05.07.840.1.666917...4.1" /> <id nullFlavor="NA" /> <code codeSystem="local" code="889501" displayName="Ova + Parasite Exam" /> < statusCode code="completed" /> <component> <observation moodCode= "EVN" classCode="OBS"> <templateId root="05.07.840.1.567949.1022.4.2 " /> <id nullFlavor="NA" /> <code codeSystem="local" code= "799309" displayName="OVA + PARASITE EXAM" /> <statusCode code= "completed" /> <effectiveTime value="" /> <value unit="" xsi:type="PQ" value="FINAL REPORT" /> <referenceRange> <observationRange> <text /> </observationRange> </referenceRange> </observation> </component> <component > <observation moodCode="EVN" classCode="OBS"> <templateId root= "216.840.1.169864.10...4.2" /> <id nullFlavor="NA" /> < code codeSystem="local" code="879529" displayName="RESULT 1" /> < statusCode code="completed" /> <effectiveTime value="" /> <value unit="" xsi:type="PQ" value="NO OVA, CYSTS, OR PARASITES SEEN." /> <referenceRange> <observationRange> <text / > </observationRange> </referenceRange> </observation > </component> </organizer> </entry> <entry> <organizer moodCode= "EVN" classCode="BATTERY"> <templateId root="216.840.1.467139.10...4.1 " /> <id nullFlavor="NA" /> <code codeSystem="local" code="41932-6" displayName="Complete urinalysis with reflex to culture" /> <statusCode code="completed" /> <component> <observation moodCode="EVN" classCode="OBS"> <templateId root="216.840.1.187006.10..22.4.2" /> <id nullFlavor="NA" /> <code codeSystem="local" code="5778-6" displayName="Urine color determination" /> <statusCode code="completed " /> <effectiveTime value="603815096214" /> <value unit="" xsi :type="PQ" value="YELLOW" /> <referenceRange> < observationRange> <text>NRG</text> </observationRange> </referenceRange> </observation> </component> < component> <observation moodCode="EVN" classCode="OBS"> < templateId root="216.840.1.435753.10..22.4.2" /> <id nullFlavor="NA " /> <code codeSystem="local" code="51271-4" displayName="Urine clarity determination" /> <statusCode code="completed" /> < effectiveTime value="" /> <value unit="" xsi:type="PQ" value="CLEAR" /> <referenceRange> <observationRange> <text>NRG</text> </observationRange> </referenceRange > </observation> </component> <component> <observation moodCode="EVN" classCode="OBS"> <templateId root= "05.07.840.1.445912.10.4.2" /> <id nullFlavor="NA" /> < code codeSystem="local" code="5803-2" displayName="Urine pH measurement by test strip" /> <statusCode code="completed" /> <effectiveTime value ="" /> <value unit="" xsi:type="PQ" value="6" /> < referenceRange> <observationRange> <text>5-9</text> </observationRange> </referenceRange> </observation> </component> <component> <observation moodCode="EVN" classCode= "OBS"> <templateId root="05.07.840.1.869507.10..22.4.2" /> < id nullFlavor="NA" /> <code codeSystem="local" code="5811-5" displayName="Specific gravity of urine by test strip" /> <statusCode code="completed" /> <effectiveTime value="" /> < value unit="" xsi:type="PQ" value="1.020" /> <referenceRange> <observationRange> <text>1.016-1.022</text> </ observationRange> </referenceRange> </observation> </ component> <component> <observation moodCode="EVN" classCode="OBS"> <templateId root="216.840.1.652022.01.08.22.4.2" /> <id nullFlavor="NA" /> <code codeSystem="local" code="76611-0" displayName= "Urine protein assay by test strip, semi-quantitative" /> <statusCode code="completed" /> <effectiveTime value="" /> < value unit="" xsi:type="PQ" value="1+" /> <interpretationCode codeSystem="local" code="*" /> <referenceRange> < observationRange> <text>NEGATIVE</text> </ observationRange> </referenceRange> </observation> </ component> <component> <observation moodCode="EVN" classCode="OBS"> <templateId root="05.07.840.1.244775.01.08.22.4.2" /> <id nullFlavor="NA" /> <code codeSystem="local" code="21451-4" displayName= "Urine glucose detection by automated test strip" /> <statusCode code= "completed" /> <effectiveTime value="" /> <value unit="" xsi:type="PQ" value="NEGATIVE" /> <referenceRange> < observationRange> <text>NEGATIVE</text> </ observationRange> </referenceRange> </observation> </ component> <component> <observation moodCode="EVN" classCode="OBS"> <templateId root="16.840.1.813334.01.08.22.4.2" /> <id nullFlavor="NA" /> <code codeSystem="local" code="03866-4" displayName= "Erythrocytes detection in urine sediment by light microscopy" /> < statusCode code="completed" /> <effectiveTime value="" /> <value unit="" xsi:type="PQ" value="3+" /> < interpretationCode codeSystem="local" code="*" /> <referenceRange> <observationRange> <text>NEGATIVE</text> </ observationRange> </referenceRange> </observation> </ component> <component> <observation moodCode="EVN" classCode="OBS"> <templateId root="216.840.1.121220.10..4.2" /> <id nullFlavor="NA" /> <code codeSystem="local" code="05057-0" displayName= "Urine ketones detection by automated test strip" /> <statusCode code= "completed" /> <effectiveTime value="" /> <value unit="" xsi:type="PQ" value="2+" /> <interpretationCode codeSystem= "local" code="*" /> <referenceRange> <observationRange> <text>NEGATIVE</text> </observationRange> </ referenceRange> </observation> </component> <component> <observation moodCode="EVN" classCode="OBS"> <templateId root= "216.840.1.780848.10..4.2" /> <id nullFlavor="NA" /> < code codeSystem="local" code="5802-4" displayName="Urine nitrite detection by test strip" /> <statusCode code="completed" /> <effectiveTime value="" /> <value unit="" xsi:type="PQ" value="NEGATIVE" / > <referenceRange> <observationRange> <text> NEGATIVE</text> </observationRange> </referenceRange> </observation> </component> <component> <observation moodCode ="EVN" classCode="OBS"> <templateId root= "2.16.840.1.149554.10..4.2" /> <id nullFlavor="NA" /> < code codeSystem="local" code="5770-3" displayName="Urine total bilirubin detection by test strip" /> <statusCode code="completed" /> < effectiveTime value="154547134192" /> <value unit="" xsi:type="PQ" value="NEGATIVE" /> <referenceRange> <observationRange> <text>NEGATIVE</text> </observationRange> </ referenceRange> </observation> </component> <component> <observation moodCode="EVN" classCode="OBS"> <templateId root= "216.840.1.067845.01.08.22.4.2" /> <id nullFlavor="NA" /> < code codeSystem="local" code="78186-1" displayName="Urine urobilinogen measurement by automated test strip (mass/volume)" /> <statusCode code= "completed" /> <effectiveTime value="228970972895" /> <value unit="" xsi:type="PQ" value="NORMAL" /> <referenceRange> < observationRange> <text>NORMAL</text> </observationRange > </referenceRange> </observation> </component> < component> <observation moodCode="EVN" classCode="OBS"> < templateId root="2.16.840.1.962219.10...4.2" /> <id nullFlavor="NA " /> <code codeSystem="local" code="5799-2" displayName="Urine leukocyte esterase detection by dipstick" /> <statusCode code= "completed" /> <effectiveTime value="" /> <value unit="" xsi:type="PQ" value="1+" /> <interpretationCode codeSystem= "local" code="*" /> <referenceRange> <observationRange> <text>NEGATIVE</text> </observationRange> </ referenceRange> </observation> </component> <component> <observation moodCode="EVN" classCode="OBS"> <templateId root= "216.840.1.158866.10..4.2" /> <id nullFlavor="NA" /> < code codeSystem="local" code="02804-9" displayName="Automated urine sediment erythrocyte count by microscopy (number/high power field)" /> < statusCode code="completed" /> <effectiveTime value="" /> <value unit="[HPF]" xsi:type="PQ" value="" /> < interpretationCode codeSystem="local" code="*" /> <referenceRange> <observationRange> <text>NRG</text> </ observationRange> </referenceRange> </observation> </ component> <component> <observation moodCode="EVN" classCode="OBS"> <templateId root="216.840.1.571919.10...4.2" /> <id nullFlavor="NA" /> <code codeSystem="local" code="5821-4" displayName= "Automated urine sediment leukocyte count by microscopy (number/high power field )" /> <statusCode code="completed" /> <effectiveTime value= "" /> <value unit="[HPF]" xsi:type="PQ" value="" /> <referenceRange> <observationRange> <text>NRG</text> </observationRange> </referenceRange> </observation > </component> <component> <observation moodCode="EVN" classCode="OBS"> <templateId root="216.840.1.520119.10..22.4.2" /> <id nullFlavor="NA" /> <code codeSystem="local" code="45357-1 " displayName="Bacteria detection in urine sediment by light microscopy" /> <statusCode code="completed" /> <effectiveTime value= "" /> <value unit="" xsi:type="PQ" value="FEW" /> <interpretationCode codeSystem="local" code="*" /> <referenceRange> <observationRange> <text>NRG</text> </ observationRange> </referenceRange> </observation> </ component> <component> <observation moodCode="EVN" classCode="OBS"> <templateId root="16.840.1.990966.10..4.2" /> <id nullFlavor="NA" /> <code codeSystem="local" code="91822-8" displayName= "Squamous epithelial cells detection in urine sediment by light microscopy" /> <statusCode code="completed" /> <effectiveTime value= "" /> <value unit="" xsi:type="PQ" value="25-50" /> <interpretationCode codeSystem="local" code="*" /> <referenceRange> <observationRange> <text>NRG</text> </ observationRange> </referenceRange> </observation> </ component> <component> <observation moodCode="EVN" classCode="OBS"> <templateId root="216.840.1.726822.10.20.22.4.2" /> <id nullFlavor="NA" /> <code codeSystem="local" code="87553-2" displayName= "Crystals detection in urine sediment by light microscopy" /> < statusCode code="completed" /> <effectiveTime value="" /> <value unit="" xsi:type="PQ" value="NONE" /> <referenceRange> <observationRange> <text>NRG</text> </ observationRange> </referenceRange> </observation> </ component> <component> <observation moodCode="EVN" classCode="OBS"> <templateId root="216.840.1.466002.10.20.22.4.2" /> <id nullFlavor="NA" /> <code codeSystem="local" code="31633-9" displayName= "Casts detection in urine sediment by light microscopy" /> <statusCode code="completed" /> <effectiveTime value="968007142950" /> < value unit="" xsi:type="PQ" value="NONE" /> <referenceRange> <observationRange> <text>NRG</text> </observationRange > </referenceRange> </observation> </component> < component> <observation moodCode="EVN" classCode="OBS"> < templateId root="16.840.1.917788.10..22.4.2" /> <id nullFlavor="NA " /> <code codeSystem="local" code="8247-9" displayName="Mucus detection in urine sediment by light microscopy" /> <statusCode code= "completed" /> <effectiveTime value="943931750338" /> <value unit="" xsi:type="PQ" value="MODERATE" /> <interpretationCode codeSystem="local" code="*" /> <referenceRange> < observationRange> <text>NRG</text> </observationRange> </referenceRange> </observation> </component> < component> <observation moodCode="EVN" classCode="OBS"> < templateId root="16.840.1.715931.10.20.22.4.2" /> <id nullFlavor="NA " /> <code codeSystem="local" code="37626-2" displayName="Complete urinalysis with reflex to culture" /> <statusCode code="completed" /> <effectiveTime value="375419173840" /> <value unit="" xsi:type ="PQ" value="NO" /> <referenceRange> <observationRange> <text>NRG</text> </observationRange> </ referenceRange> </observation> </component> </organizer> </entry > <entry> <organizer moodCode="EVN" classCode="BATTERY"> <templateId root="216.840.1.848721.10.20.22.4.1" /> <id nullFlavor="NA" /> <code codeSystem="local" code="27439-8" displayName="Complete blood count (CBC) with automated white blood cell (WBC) differential" /> <statusCode code= "completed" /> <component> <observation moodCode="EVN" classCode= "OBS"> <templateId root="216.840.1.897174.10.20.22.4.2" /> < id nullFlavor="NA" /> <code codeSystem="local" code="6690-2" displayName="Blood leukocytes automated count (number/volume)" /> < statusCode code="completed" /> <effectiveTime value="471748603957" /> <value unit="10*3/uL" xsi:type="PQ" value="10.4" /> < referenceRange> <observationRange> <text>4.3-11.0</text > </observationRange> </referenceRange> </observation > </component> <component> <observation moodCode="EVN" classCode="OBS"> <templateId root="16.840.1.158328.10.20.22.4.2" /> <id nullFlavor="NA" /> <code codeSystem="local" code="789-8" displayName="Blood erythrocytes automated count (number/volume)" /> < statusCode code="completed" /> <effectiveTime value="745288760727" /> <value unit="10*6/uL" xsi:type="PQ" value="4.34" /> < interpretationCode codeSystem="local" code="" /> <referenceRange> <observationRange> <text>4.35-5.85</text> </ observationRange> </referenceRange> </observation> </ component> <component> <observation moodCode="EVN" classCode="OBS"> <templateId root="2.16.840.1.992902.10.20.22.4.2" /> <id nullFlavor="NA" /> <code codeSystem="local" code="19875-7" displayName= "Venous blood hemoglobin measurement (mass/volume)" /> <statusCode code ="completed" /> <effectiveTime value="592385495215" /> <value unit="g/dL" xsi:type="PQ" value="12.9" /> <referenceRange> < observationRange> <text>11.5-16.0</text> </ observationRange> </referenceRange> </observation> </ component> <component> <observation moodCode="EVN" classCode="OBS"> <templateId root="2.16.840.1.569952.10.20.22.4.2" /> <id nullFlavor="NA" /> <code codeSystem="local" code="26266-0" displayName= "Blood hematocrit (volume fraction)" /> <statusCode code="completed" / > <effectiveTime value="855422012001" /> <value unit="%" xsi:type="PQ" value="38" /> <referenceRange> < observationRange> <text>35-52</text> </observationRange > </referenceRange> </observation> </component> < component> <observation moodCode="EVN" classCode="OBS"> < templateId root="2.16.840.1.386985.10.20.22.4.2" /> <id nullFlavor="NA " /> <code codeSystem="local" code="787-2" displayName="Automated erythrocyte mean corpuscular volume" /> <statusCode code="completed" / > <effectiveTime value="826401447436" /> <value unit="[foz_us] " xsi:type="PQ" value="86" /> <referenceRange> < observationRange> <text>80-99</text> </observationRange > </referenceRange> </observation> </component> < component> <observation moodCode="EVN" classCode="OBS"> < templateId root="2.16.840.1.572851.10.22.4.2" /> <id nullFlavor="NA " /> <code codeSystem="local" code="785-6" displayName="Automated erythrocyte mean corpuscular hemoglobin (mass per erythrocyte)" /> < statusCode code="completed" /> <effectiveTime value="798880046230" /> <value unit="pg" xsi:type="PQ" value="30" /> <referenceRange> <observationRange> <text>25-34</text> </ observationRange> </referenceRange> </observation> </ component> <component> <observation moodCode="EVN" classCode="OBS"> <templateId root="2.16.840.1.376072.10..22.4.2" /> <id nullFlavor="NA" /> <code codeSystem="local" code="786-4" displayName= "Automated erythrocyte mean corpuscular hemoglobin concentration measurement ( mass/volume)" /> <statusCode code="completed" /> < effectiveTime value="604983780394" /> <value unit="g/dL" xsi:type="PQ" value="34" /> <referenceRange> <observationRange> <text>32-36</text> </observationRange> </referenceRange > </observation> </component> <component> <observation moodCode="EVN" classCode="OBS"> <templateId root= "2.16.840.1.876928.10.20.22.4.2" /> <id nullFlavor="NA" /> < code codeSystem="local" code="788-0" displayName="Automated erythrocyte distribution width ratio" /> <statusCode code="completed" /> < effectiveTime value="776099427202" /> <value unit="%" xsi:type="PQ " value="12.0" /> <referenceRange> <observationRange> <text>10.0-14.5</text> </observationRange> </ referenceRange> </observation> </component> <component> <observation moodCode="EVN" classCode="OBS"> <templateId root= "2.16.840.1.839809.10..4.2" /> <id nullFlavor="NA" /> < code codeSystem="local" code="777-3" displayName="Automated blood platelet count (count/volume)" /> <statusCode code="completed" /> < effectiveTime value="650970325883" /> <value unit="10*3/uL" xsi:type= "PQ" value="230" /> <referenceRange> <observationRange> <text>130-400</text> </observationRange> </ referenceRange> </observation> </component> <component> <observation moodCode="EVN" classCode="OBS"> <templateId root= "2.16.840.1.944639.10.4.2" /> <id nullFlavor="NA" /> < code codeSystem="local" code="63139-3" displayName="Automated blood platelet mean volume measurement" /> <statusCode code="completed" /> < effectiveTime value="348175269412" /> <value unit="[[facility]]" xsi:type= "PQ" value="9.8" /> <referenceRange> <observationRange> <text>7.4-10.4</text> </observationRange> </ referenceRange> </observation> </component> <component> <observation moodCode="EVN" classCode="OBS"> <templateId root= "2.16.840.1.732395.104.2" /> <id nullFlavor="NA" /> < code codeSystem="local" code="770-8" displayName="Automated blood neutrophils/ 100 leukocytes" /> <statusCode code="completed" /> < effectiveTime value="296795459834" /> <value unit="%" xsi:type="PQ " value="74" /> <referenceRange> <observationRange> <text>42-75</text> </observationRange> </ referenceRange> </observation> </component> <component> <observation moodCode="EVN" classCode="OBS"> <templateId root= "2.16.840.1.719377.10..4.2" /> <id nullFlavor="NA" /> < code codeSystem="local" code="736-9" displayName="Automated blood lymphocytes/ 100 leukocytes" /> <statusCode code="completed" /> < effectiveTime value="487395144817" /> <value unit="%" xsi:type="PQ " value="18" /> <referenceRange> <observationRange> <text>12-44</text> </observationRange> </ referenceRange> </observation> </component> <component> <observation moodCode="EVN" classCode="OBS"> <templateId root= "2.16.840.1.370531.10.20.22.4.2" /> <id nullFlavor="NA" /> < code codeSystem="local" code="11465-3" displayName="Blood monocytes/100 leukocytes" /> <statusCode code="completed" /> <effectiveTime value="801787028353" /> <value unit="%" xsi:type="PQ" value="7" /> <referenceRange> <observationRange> <text>0-12 </text> </observationRange> </referenceRange> </ observation> </component> <component> <observation moodCode= "EVN" classCode="OBS"> <templateId root="2.16.840.1.895324.10..22.4.2 " /> <id nullFlavor="NA" /> <code codeSystem="local" code="713 -8" displayName="Automated blood eosinophils/100 leukocytes" /> < statusCode code="completed" /> <effectiveTime value="972475877218" /> <value unit="%" xsi:type="PQ" value="0" /> <referenceRange > <observationRange> <text>0-10</text> </ observationRange> </referenceRange> </observation> </ component> <component> <observation moodCode="EVN" classCode="OBS"> <templateId root="2.16.840.1.188864.10.20.22.4.2" /> <id nullFlavor="NA" /> <code codeSystem="local" code="706-2" displayName= "Automated blood basophils/100 leukocytes" /> <statusCode code= "completed" /> <effectiveTime value="193259839313" /> <value unit="%" xsi:type="PQ" value="0" /> <referenceRange> < observationRange> <text>0-10</text> </observationRange> </referenceRange> </observation> </component> < component> <observation moodCode="EVN" classCode="OBS"> < templateId root="216.840.1.369468.10.20.22.4.2" /> <id nullFlavor="NA " /> <code codeSystem="local" code="751-8" displayName="Blood neutrophils automated count (number/volume)" /> <statusCode code= "completed" /> <effectiveTime value="994158584123" /> <value unit="10*3" xsi:type="PQ" value="7.7" /> <referenceRange> < observationRange> <text>1.8-7.8</text> </ observationRange> </referenceRange> </observation> </ component> <component> <observation moodCode="EVN" classCode="OBS"> <templateId root="16.840.1.656972.10...4.2" /> <id nullFlavor="NA" /> <code codeSystem="local" code="731-0" displayName= "Blood lymphocytes automated count (number/volume)" /> <statusCode code ="completed" /> <effectiveTime value="197092659396" /> <value unit="10*3" xsi:type="PQ" value="1.9" /> <referenceRange> < observationRange> <text>1.0-4.0</text> </ observationRange> </referenceRange> </observation> </ component> <component> <observation moodCode="EVN" classCode="OBS"> <templateId root="216.840.1.493234.10.20.22.4.2" /> <id nullFlavor="NA" /> <code codeSystem="local" code="742-7" displayName= "Blood monocytes automated count (number/volume)" /> <statusCode code= "completed" /> <effectiveTime value="624516175367" /> <value unit="10*3" xsi:type="PQ" value="0.7" /> <referenceRange> < observationRange> <text>0.0-1.0</text> </ observationRange> </referenceRange> </observation> </ component> <component> <observation moodCode="EVN" classCode="OBS"> <templateId root="2.16.840.1.876167.10..22.4.2" /> <id nullFlavor="NA" /> <code codeSystem="local" code="711-2" displayName= "Automated eosinophil count" /> <statusCode code="completed" /> <effectiveTime value="004976653892" /> <value unit="10*3/uL" xsi: type="PQ" value="0.0" /> <referenceRange> <observationRange > <text>0.0-0.3</text> </observationRange> </ referenceRange> </observation> </component> <component> <observation moodCode="EVN" classCode="OBS"> <templateId root= "2.16.840.1.430383.10..22.4.2" /> <id nullFlavor="NA" /> < code codeSystem="local" code="704-7" displayName="Automated blood basophil count (count/volume)" /> <statusCode code="completed" /> < effectiveTime value="672664098918" /> <value unit="10*3/uL" xsi:type= "PQ" value="0.0" /> <referenceRange> <observationRange> <text>0.0-0.1</text> </observationRange> </ referenceRange> </observation> </component> </organizer> </entry > <entry> <organizer moodCode="EVN" classCode="BATTERY"> <templateId root="2.16.840.1.687260.10..22.4.1" /> <id nullFlavor="NA" /> <code codeSystem="local" code="75586-4" displayName="Comprehensive metabolic panel" / > <statusCode code="completed" /> <component> <observation moodCode="EVN" classCode="OBS"> <templateId root= "2.16.840.1.177735.10...4.2" /> <id nullFlavor="NA" /> < code codeSystem="local" code="2951-2" displayName="Serum or plasma sodium measurement (moles/volume)" /> <statusCode code="completed" /> <effectiveTime value="002907664079" /> <value unit="mmol/L" xsi:type= "PQ" value="138" /> <referenceRange> <observationRange> <text>135-145</text> </observationRange> </ referenceRange> </observation> </component> <component> <observation moodCode="EVN" classCode="OBS"> <templateId root= "2.16.840.1.621791.10..22.4.2" /> <id nullFlavor="NA" /> < code codeSystem="local" code="2823-3" displayName="Serum or plasma potassium measurement (moles/volume)" /> <statusCode code="completed" /> <effectiveTime value="634459779786" /> <value unit="mmol/L" xsi:type= "PQ" value="3.4" /> <interpretationCode codeSystem="local" code="" / > <referenceRange> <observationRange> <text>3.6 -5.0</text> </observationRange> </referenceRange> </ observation> </component> <component> <observation moodCode= "EVN" classCode="OBS"> <templateId root="2.16.840.1.187020.10..22.4.2 " /> <id nullFlavor="NA" /> <code codeSystem="local" code= "" displayName="Serum or plasma chloride measurement (moles/volume)" /> <statusCode code="completed" /> <effectiveTime value= "816643264460" /> <value unit="mmol/L" xsi:type="PQ" value="104" /> <referenceRange> <observationRange> <text>98-107< /text> </observationRange> </referenceRange> </ observation> </component> <component> <observation moodCode= "EVN" classCode="OBS"> <templateId root="216.840.1.869331.10..4.2 " /> <id nullFlavor="NA" /> <code codeSystem="local" code= "2027-11" displayName="Carbon dioxide" /> <statusCode code="completed" / > <effectiveTime value="432332342041" /> <value unit="mmol/L" xsi:type="PQ" value="24" /> <referenceRange> < observationRange> <text>21-32</text> </observationRange > </referenceRange> </observation> </component> < component> <observation moodCode="EVN" classCode="OBS"> < templateId root="2.16.840.1.354488.10..22.4.2" /> <id nullFlavor="NA " /> <code codeSystem="local" code="59522-2" displayName="Serum or plasma anion gap determination (moles/volume)" /> <statusCode code= "completed" /> <effectiveTime value="294698057250" /> <value unit="mmol/L" xsi:type="PQ" value="10" /> <referenceRange> < observationRange> <text>5-14</text> </observationRange> </referenceRange> </observation> </component> < component> <observation moodCode="EVN" classCode="OBS"> < templateId root="2.16.840.1.567037.10.20.22.4.2" /> <id nullFlavor="NA " /> <code codeSystem="local" code="3094-0" displayName="Serum or plasma urea nitrogen measurement (mass/volume)" /> <statusCode code= "completed" /> <effectiveTime value="959616051899" /> <value unit="mg/dL" xsi:type="PQ" value="14" /> <referenceRange> < observationRange> <text>7-18</text> </observationRange> </referenceRange> </observation> </component> < component> <observation moodCode="EVN" classCode="OBS"> < templateId root="2.16.840.1.584581.10..22.4.2" /> <id nullFlavor="NA " /> <code codeSystem="local" code="2160-0" displayName="Serum or plasma creatinine measurement (mass/volume)" /> <statusCode code= "completed" /> <effectiveTime value="840725278584" /> <value unit="mg/dL" xsi:type="PQ" value="0.86" /> <referenceRange> <observationRange> <text>0.60-1.30</text> </ observationRange> </referenceRange> </observation> </ component> <component> <observation moodCode="EVN" classCode="OBS"> <templateId root="2.16.840.1.016715.10.20.22.4.2" /> <id nullFlavor="NA" /> <code codeSystem="local" code="3097-3" displayName= "Serum or plasma urea nitrogen/creatinine mass ratio" /> <statusCode code="completed" /> <effectiveTime value="515775534947" /> < value unit="" xsi:type="PQ" value="16" /> <referenceRange> < observationRange> <text>NRG</text> </observationRange> </referenceRange> </observation> </component> < component> <observation moodCode="EVN" classCode="OBS"> < templateId root="2.16.840.1.701780.10..22.4.2" /> <id nullFlavor="NA " /> <code codeSystem="local" code="25128-7" displayName="Serum or plasma creatinine measurement with calculation of estimated glomerular filtration rate" /> <statusCode code="completed" /> < effectiveTime value="209896709393" /> <value unit="" xsi:type="PQ" value=">" /> <referenceRange> <observationRange> <text>NRG</text> </observationRange> </referenceRange > </observation> </component> <component> <observation moodCode="EVN" classCode="OBS"> <templateId root= "2.16.840.1.657913.10..22.4.2" /> <id nullFlavor="NA" /> < code codeSystem="local" code="2345-7" displayName="Serum or plasma glucose measurement (mass/volume)" /> <statusCode code="completed" /> <effectiveTime value="094861451998" /> <value unit="mg/dL" xsi:type="PQ " value="78" /> <referenceRange> <observationRange> <text>70-105</text> </observationRange> </ referenceRange> </observation> </component> <component> <observation moodCode="EVN" classCode="OBS"> <templateId root= "2.16.840.1.683845.10..22.4.2" /> <id nullFlavor="NA" /> < code codeSystem="local" code="50939-7" displayName="Serum or plasma calcium measurement (mass/volume)" /> <statusCode code="completed" /> <effectiveTime value="175189715143" /> <value unit="mg/dL" xsi:type="PQ " value="8.8" /> <referenceRange> <observationRange> <text>8.5-10.1</text> </observationRange> </ referenceRange> </observation> </component> <component> <observation moodCode="EVN" classCode="OBS"> <templateId root= "2.840.1.471082.10..22.4.2" /> <id nullFlavor="NA" /> < code codeSystem="local" code="1975" displayName="Serum or plasma total bilirubin measurement (mass/volume)" /> <statusCode code="completed" / > <effectiveTime value="692991123151" /> <value unit="mg/dL" xsi:type="PQ" value="1.7" /> <interpretationCode codeSystem="local" code="" /> <referenceRange> <observationRange> <text>0.1-1.0</text> </observationRange> </referenceRange > </observation> </component> <component> <observation moodCode="EVN" classCode="OBS"> <templateId root= "216.840.1.319289.10..22.4.2" /> <id nullFlavor="NA" /> < code codeSystem="local" code="6768-6" displayName="Serum or plasma alkaline phosphatase measurement (enzymatic activity/volume)" /> <statusCode code="completed" /> <effectiveTime value="219187170218" /> < value unit="U/L" xsi:type="PQ" value="53" /> <referenceRange> <observationRange> <text>40-136</text> </ observationRange> </referenceRange> </observation> </ component> <component> <observation moodCode="EVN" classCode="OBS"> <templateId root="2.16.840.1.780510.10.20.22.4.2" /> <id nullFlavor="NA" /> <code codeSystem="local" code="1919-10" displayName= "Serum or plasma aspartate aminotransferase measurement (enzymatic activity/ volume)" /> <statusCode code="completed" /> <effectiveTime value="053908989569" /> <value unit="U/L" xsi:type="PQ" value="15" /> <referenceRange> <observationRange> <text>5-34< /text> </observationRange> </referenceRange> </ observation> </component> <component> <observation moodCode= "EVN" classCode="OBS"> <templateId root="2.16.840.1.316862.10.20.22.4.2 " /> <id nullFlavor="NA" /> <code codeSystem="local" code= "1741-08" displayName="Serum or plasma alanine aminotransferase measurement ( enzymatic activity/volume)" /> <statusCode code="completed" /> <effectiveTime value="729663186511" /> <value unit="U/L" xsi:type="PQ " value="15" /> <referenceRange> <observationRange> <text>0-55</text> </observationRange> </referenceRange > </observation> </component> <component> <observation moodCode="EVN" classCode="OBS"> <templateId root= "216.840.1.670696.10.2022.4.2" /> <id nullFlavor="NA" /> < code codeSystem="local" code="2885-2" displayName="Serum or plasma protein measurement (mass/volume)" /> <statusCode code="completed" /> <effectiveTime value="822544302289" /> <value unit="g/dL" xsi:type="PQ " value="6.7" /> <referenceRange> <observationRange> <text>6.4-8.2</text> </observationRange> </ referenceRange> </observation> </component> <component> <observation moodCode="EVN" classCode="OBS"> <templateId root= "05.07.840.1.924523.22.4.2" /> <id nullFlavor="NA" /> < code codeSystem="local" code="1751-7" displayName="Serum or plasma albumin measurement (mass/volume)" /> <statusCode code="completed" /> <effectiveTime value="118422192220" /> <value unit="g/dL" xsi:type="PQ " value="4.0" /> <referenceRange> <observationRange> <text>3.2-4.5</text> </observationRange> </ referenceRange> </observation> </component> </organizer> </entry > <entry> <organizer moodCode="EVN" classCode="BATTERY"> <templateId root="16.840.1.187022.10.20.22.4.1" /> <id nullFlavor="NA" /> <code codeSystem="local" code="3040-3" displayName="Lipase" /> <statusCode code= "completed" /> <component> <observation moodCode="EVN" classCode= "OBS"> <templateId root="05.07.840.1.878084.10.20.22.4.2" /> < id nullFlavor="NA" /> <code codeSystem="local" code="3040-3" displayName="Lipase" /> <statusCode code="completed" /> < effectiveTime value="003980617498" /> <value unit="U/L" xsi:type="PQ" value="23" /> <referenceRange> <observationRange> <text>8-78</text> </observationRange> </referenceRange> </observation> </component> </organizer> </entry> <entry> < organizer moodCode="EVN" classCode="BATTERY"> <templateId root= "2.16.840.1.261553.10..22.4.1" /> <id nullFlavor="NA" /> <code codeSystem="local" code="55849-6" displayName="Serum or plasma choriogonadotropin measurement (units/volume)" /> <statusCode code= "completed" /> <component> <observation moodCode="EVN" classCode= "OBS"> <templateId root="2.16.840.1.925760.10.20.22.4.2" /> < id nullFlavor="NA" /> <code codeSystem="local" code="83105-2" displayName="Serum or plasma choriogonadotropin measurement (units/volume)" /> <statusCode code="completed" /> <effectiveTime value= "058204783760" /> <value unit="m[iU]/mL" xsi:type="PQ" value="402" /> <interpretationCode codeSystem="local" code="" /> < referenceRange> <observationRange> <text><5</text> </observationRange> </referenceRange> </observation> </component> </organizer> </entry> <entry> <organizer moodCode="EVN " classCode="BATTERY"> <templateId root="05.07.840.1.952544.10..4.1" / > <id nullFlavor="NA" /> <code codeSystem="local" code="27746-1" displayName="Serum or plasma choriogonadotropin measurement (units/volume)" /> <statusCode code="completed" /> <component> <observation moodCode="EVN" classCode="OBS"> <templateId root= "05.07.840.1.857257.01.08.22.4.2" /> <id nullFlavor="NA" /> < code codeSystem="local" code="28749-3" displayName="Serum or plasma choriogonadotropin measurement (units/volume)" /> <statusCode code= "completed" /> <effectiveTime value="956933176849" /> <value unit="m[iU]/mL" xsi:type="PQ" value="149" /> <interpretationCode codeSystem="local" code="" /> <referenceRange> < observationRange> <text><5</text> </observationRange > </referenceRange> </observation> </component> </ organizer> </entry> <entry> <organizer moodCode="EVN" classCode="BATTERY"> <templateId root="05.07.840.1.747766.01.08.22.4.1" /> <id nullFlavor= "NA" /> <code codeSystem="local" code="47198-1" displayName="Influenza virus A and B antigen detection" /> <statusCode code="completed" /> < component> <observation moodCode="EVN" classCode="OBS"> < templateId root="05.07.840.1.737426.10..22.4.2" /> <id nullFlavor="NA " /> <code codeSystem="local" code="FLURESULT" displayName="FLU RESULT " /> <statusCode code="completed" /> <effectiveTime value= "186361552804" /> <value unit="" xsi:type="PQ" value="NEGATIVE FOR INFLUENZA A AND B ANTIGENS BY IA" /> <referenceRange> < observationRange> <text>NRG</text> </observationRange> </referenceRange> </observation> </component> </ organizer> </entry> <entry> <organizer moodCode="EVN" classCode="BATTERY"> <templateId root="216.840.1.403304.10.20.22.4.1" /> <id nullFlavor= "NA" /> <code codeSystem="local" code="94215-0" displayName="Serum or plasma choriogonadotropin measurement (units/volume)" /> <statusCode code= "completed" /> <component> <observation moodCode="EVN" classCode= "OBS"> <templateId root="216.840.1.224323.10.20.22.4.2" /> < id nullFlavor="NA" /> <code codeSystem="local" code="26871-7" displayName="Serum or plasma choriogonadotropin measurement (units/volume)" /> <statusCode code="completed" /> <effectiveTime value= "309189168795" /> <value unit="m[iU]/mL" xsi:type="PQ" value="36" /> <interpretationCode codeSystem="local" code="" /> < referenceRange> <observationRange> <text><5</text> </observationRange> </referenceRange> </observation> </component> </organizer> </entry> <entry> <organizer moodCode="EVN " classCode="BATTERY"> <templateId root="216.840.1.079296.10.20.22.4.1" / > <id nullFlavor="NA" /> <code codeSystem="local" code="2117-10" displayName="Serum or plasma choriogonadotropin ( test) detection" /> <statusCode code="completed" /> <component> <observation moodCode="EVN" classCode="OBS"> <templateId root= "2.16.840.1.688349.10.20.22.4.2" /> <id nullFlavor="NA" /> < code codeSystem="local" code="2117-10" displayName="Serum or plasma choriogonadotropin ( test) detection" /> <statusCode code= "completed" /> <effectiveTime value="" /> <value unit="" xsi:type="PQ" value="POSITIVE" /> <referenceRange> < observationRange> <text>NEGATIVE</text> </ observationRange> </referenceRange> </observation> </ component> </organizer> </entry> <entry> <organizer moodCode="EVN" classCode="BATTERY"> <templateId root="2.16.840.1.272234.10.20.22.4.1" /> <id nullFlavor="NA" /> <code codeSystem="local" code="00233-2" displayName="Serum or plasma choriogonadotropin measurement (units/volume)" /> <statusCode code="completed" /> <component> <observation moodCode="EVN" classCode="OBS"> <templateId root= "2.16.840.1.224569.10.20.22.4.2" /> <id nullFlavor="NA" /> < code codeSystem="local" code="28868-2" displayName="Serum or plasma choriogonadotropin measurement (units/volume)" /> <statusCode code= "completed" /> <effectiveTime value="" /> <value unit="m[iU]/mL" xsi:type="PQ" value="828" /> <interpretationCode codeSystem="local" code="" /> <referenceRange> < observationRange> <text><5</text> </observationRange > </referenceRange> </observation> </component> </ organizer> </entry> <entry> <organizer moodCode="EVN" classCode="BATTERY"> <templateId root="2.16.840.1.775613.10.20.22.4.1" /> <id nullFlavor= "NA" /> <code codeSystem="local" code="93478-7" displayName="Serum or plasma choriogonadotropin measurement (units/volume)" /> <statusCode code= "completed" /> <component> <observation moodCode="EVN" classCode= "OBS"> <templateId root="2.16.840.1.395488.10.20.22.4.2" /> < id nullFlavor="NA" /> <code codeSystem="local" code="53044-7" displayName="Serum or plasma choriogonadotropin measurement (units/volume)" /> <statusCode code="completed" /> <effectiveTime value= "153283043874" /> <value unit="m[iU]/mL" xsi:type="PQ" value="3002" /> <interpretationCode codeSystem="local" code="" /> < referenceRange> <observationRange> <text><5</text> </observationRange> </referenceRange> </observation> </component> </organizer> </entry> <entry> <organizer moodCode="EVN " classCode="BATTERY"> <templateId root="2.16.840.1.501896.10.20.22.4.1" / > <id nullFlavor="NA" /> <code codeSystem="local" code="ORD61" displayName="Beta HCG" /> <statusCode code="completed" /> <component> <observation moodCode="EVN" classCode="OBS"> <templateId root= "2.16.840.1.873420.10.20.22.4.2" /> <id nullFlavor="NA" /> < code codeSystem="local" code="Fgr6453" displayName="Beta HCG" /> < statusCode code="completed" /> <effectiveTime value="349561332825" /> <value unit="mIU/mL" xsi:type="PQ" value="80471" /> < interpretationCode codeSystem="local" code="H" /> <referenceRange> <observationRange> <text>5-25</text> </ observationRange> </referenceRange> </observation> </ component> </organizer> </entry></section> Encounters ACCT No. Visit Date/Time Discharge Status Pt. Type Provider Facility Loc./Unit Complaint [id number] 08/11/2017 12:07:00 08/11/2017 23:59:59 CLS Outpatient BRAYAN PEREZ [facility] LAB EARLY [id number] 08/08/2017 15:21:00 08/08/2017 19:07:00 DIS Outpatient BRAYAN PEREZ [facility] ER STOMACH CRAMPS [id number] 05/05/2017 10:21:00 05/05/2017 23:59:59 CLS Outpatient LIGIA KING MD [facility] LAB HCG QUANT [id number] 05/01/2017 10:23:00 05/01/2017 23:59:59 CLS Outpatient BRAYAN PEREZ [facility] LAB THREATENED MISCARRIAGE, LOWER ABD PAIN [id number] 04/29/2017 14:31:00 04/29/2017 17:50:00 DIS Emergency BRAYAN PEREZ [facility] ER ABD PAIN [id number] 09/16/2015 12:29:00 09/16/2015 17:30:00 DIS Outpatient BRIDGER BLUE MD [facility] SDC BILATERAL LABIAL HYPERTROPHY [id number] 09/13/2015 14:05:00 09/13/2015 23:59:59 CLS Outpatient SU MUÑIZ, BRIDGER Mike [facility] PREOP BILATERAL LABIAL HYPERTROPHY [id number] 11/30/2014 11:52:00 11/30/2014 14:36:00 DIS Outpatient KASSI MUÑIZ, MONIQUE Payne [facility] ULCERS;EPIGASTRIC PAIN;BLOOD IN STOOLS;DIARRHEA [id number] 11/29/2014 05:40:00 11/29/2014 23:59:59 CLS Outpatient KASSI MUÑIZ, MONIQUE Payne [facility] PREOP ULCERS;EPIGASTRIC PAIN;BLOOD IN STOOLS;DIARRHEA [id number] 11/26/2014 19:32:00 11/26/2014 22:14:00 DIS Emergency LIGIA ANTON DO [facility] ER FEVER,VOMITING,SORE THROAT [id number] 05/06/2014 10:49:00 05/06/2014 13:26:00 DIS Emergency LIGIA ANTON DO [facility] ER SUICIDE ATTEMPT [id number] 04/05/2014 09:35:00 04/05/2014 11:12:00 DIS Emergency DADA MUÑIZ, JAVI Leslie [facility] ER SYNCOPAL EPISODE [id number] 02/05/2014 09:55:00 02/05/2014 12:35:00 DIS Outpatient SANDRA LIND DO [facility] 4THo DEHYDRATION [id number] 03/16/2013 20:43:00 03/16/2013 23:01:00 DIS Emergency RUTH MUÑIZ, CHARLES Willis [facility] ER SUICIDE ATTEMPT [id number] 12/24/2012 20:12:00 12/24/2012 21:57:00 DIS Emergency MELQUIADES OHCOA MD [facility] ER VOMITING [id number] 08/20/2017 13:25:00 Document Registration [id number] 06/08/2012 06:30:00 Document Registration [id number] 06/01/2012 07:42:00 Document Registration [id number] 02/05/2011 20:35:00 Document Registration [facility] 06/03/2016 15:57:53 ACT Document Registration [id number] 08/10/2016 15:51:00 08/10/2016 23:59:[place] [id number] 12/14/2016 10:00:00 12/14/2016 23:59:59 CLS Outpatient ELIAN HENNING MD [facility] [id number] 03/03/2017 13:58:00 03/03/2017 23:59:00 DIS Outpatient Ligia King [id number] 02/26/2017 14:47:00 02/26/2017 23:59:00 DIS Outpatient Ligia King [id number] 12/29/2016 04:33:00 12/29/2016 05:13:00 DIS Outpatient REINALDO BOBO [id number] 08/17/2017 05:12:43 Document Registration [id number] 12/29/2016 05:03:45 Document Registration [id number] 06/03/2016 10:00:00 06/03/2016 10:28:00 DIS Emergency Tiffanie MUÑIZ, [facility] [id number] 04/09/2016 08:28:00 04/12/2016 12:27:00 DIS Outpatient Lisa MUÑIZ, [facility] W.7TN [id number] 02/24/2016 00:55:00 02/24/2016 03:20:00 DIS Emergency Tiffanie MUÑIZ, [facility] [id number] 01/31/2016 19:11:00 01/31/2016 21:26:00 DIS Emergency Za MUÑIZ, Yang Munoz [facility] W.ED [email or web address] 11/30/2014 11:52:47 ACT Document Registration [id number] 03/08/2017 16:19:00 Document Registration [id number] 09/16/2016 09:17:17 09/16/2016 23:59:59 CLS Outpatient Sandra Lind
[2017-08-21 08:00] VITALS: BP 98/59
[2017-08-21] MEDS ORDERED: PROCHLORPERAZINE 10 MG TAB (COMPAZINE) PO PRN (09:00)
--- NOTE | 2017-08-21 09:57 | Physician Progress Note ---
Progress Note Assessment/Plan Date Seen by Provider: Aug 21, 2017 Time Seen by Provider: 09:30 Events since last exam Stayed last night because of continued nausea and hadn't eaten. Has eaten some bland food. Will start diclegis today. Plan discharge today. 08/21/17 08/21/17 02:05 08:00 Temp 98.0 98.7 Pulse 53 60 Resp 16 16 B/P (MAP) 85/47 (60) 98/59 (72) Pulse Ox 100 100 O2 Delivery Room Air Room Air 08/21/17 00:00 Intake Total 2400 ml Output Total 1800 ml Balance 600 ml Hyperemesis To see me on as scheduled Assessment/Plan 1 hyperemsis gravidarum, 6 weeks gestation 2. dehydration 3. hypokalemia (mild) 4. elevated bilirubin plan continue IVF and IV antiemetics. change to compazine, scopalamine patch. Consider TPN as needed. Banana bag. Vitals Last set of Vitals Signs Vital Signs Date Time Temp Pulse Resp B/P (MAP) Pulse Ox O2 Delivery O2 Flow Rate FiO2 08/21/17 08:00 98.7 60 16 98/59 (72) 100 Room Air I&O I&O Intake and Output 08/21/17 00:00 Intake Total 5450 ml Output Total 3050 ml Balance 2400 ml Intake Oral 450 ml IV Total 5000 ml Output Urine Total 3000 ml Emesis 50 ml PATRICK RAE DO Aug 21, 2017 09:56
[2017-08-21 11:15] VITALS: BP 98/59
--- OUTSIDE RECORDS SUMMARY | 2017-08-23 09:44 | XMS REPORT | Continuity of Care Document ---
Author Author [facility] Organization [facility] Address Unknown Phone Unavailable Allergies Active Description Code Type Severity Reaction Onset Reported/Identified Relationship to Patient Clinical Status Yes HYDROCODONE-ACETAMINOPHEN MODERATE ITCHING Yes PENICILLINS UNKNOWN UNKNOWN Yes hydrocodone [id number] Drug Allergy Mild N/A 02/05/2011 Yes penicillin [id number] Drug Allergy Unknown N/A 11/26/2014 Yes hydrocodone [id number] Drug Allergy Moderate HIVES 09/16/2015 Yes penicillin [id number] Drug Allergy Mild RASH 09/16/2015 Yes hydrocodone [...] MAJOR DEPRESSIVE DISORDER, SINGLE EPISOD 04/29/2017 BRAYAN PREEZ Ot O20.0 THREATENED 04/29/2017 BRAYAN PEREZ Ot [...] OF GESTATION OF NOT SPEC 05/03/2017 BRAYAN PERZE Ot Z87.01 PERSONAL HISTORY OF PNEUMONIA (RECURRENT [...] Ot R10.84 GENERALIZED ABDOMINAL PAIN 08/14/2017 JESSICA TITOBRAYAN Rosangela Ot Z32.01 ENCOUNTER FOR TEST, RESULT POS 08/14/2017 JESSICA FRANCISBRAYAN Rosangela Ot Z87.01 PERSONAL HISTORY OF PNEUMONIA (RECURRENT 08/14/2017 JESSICA FRANCIS BRAYAN Rosangela Ot Z87.19 PERSONAL HISTORY OF OTHER DISEASES OF TH 08/14/2017 JESSICA FRANCISBRAYAN Rosangela Ot Z87.81 PERSONAL HISTORY OF (HEALED) TRAUMATIC F 08/14/2017 JESSICA FRANCIS BRAYAN L Ot Z88.0 ALLERGY STATUS TO PENICILLIN 08/14/2017 JESSICA FRANCIS BRAYAN L Ot Z88.5 ALLERGY STATUS TO NARCOTIC AGENT STATUS 08/14/2017 JESSICA FRANCIS BRAYAN L Ot Z90.49 ACQUIRED ABSENCE OF OTHER SPECIFIED PART 08/14/2017 JESSICA FRANCIS BRAYAN Rosangela Ot Z91.5 PERSONAL HISTORY OF SELF-HARM 08/17/2017 Eligio Crooks 643.0 MILD HYPEREMESIS GRAVIDARUM 08/17/2017 Eligio Crooks O21.0 MILD HYPEREMESIS GRAVIDARUM Procedures There is no data. <section xmlns="urn:hl7-org:v3" xmlns:xsi="http:// www.w3.org/2001/XMLSchema-instance"> <templateId root= "2.16.840.1.173304.10.20.22.2.3" /> <templateId root= "2.16.840.1.673391.10.20.22.2.3.1" /> <code codeSystemName="LOINC" codeSystem= "2.16.840.1.309966.6.1" code="39388-9" displayName="Results" /> <title>Results< /title> <text> <table> <thead> [...] TOTAL</td> <td>56 IU/L</td> <td>45-117</ td> </tr> <tr> <th colspan="10">PHOSPHORUS - 04/10/16 05: 18</th> </tr> <tr> [...] <td>NORMAL: NONE SEEN</td> </tr> <tr> <th colspan="10">[facility] - 02/26/17 17:05</th> </tr> <tr> <td>Clue Cells</td> <td>Not Observed < /td> <td>Not Observed</td> </tr> <tr> <td> Trichomonas</td> <td>Not Observed </td> <td>Not Observed</td> </tr> <tr> <td>Yeast</td> <td>Not Observed </td > <td>Not Observed</td> </tr> <tr> < colspan= "10">Chlamydia/GC Amplification - 02/26/17 17:05</th> </tr> <tr> <td>CHLAMYDIA TRACHOMATIS, MELISSA</td> <td>NEGATIVE </td> <td>NEGATIVE</td> </tr> <tr> <td>NEISSERIA GONORRHOEAE , MELISSA</td> <td>NEGATIVE </td> <td>NEGATIVE</td> </tr> <tr> < colspan="10">Chlamydia/GC Amplification - 02/26/17 17: 05</th> </tr> [...] 08/17/17 05:15</th> </tr> <tr> <td>Beta HCG</ td> <td>92414 mIU/mL</td> <td>5-25</td> </tr> </ tbody> </table> </text> <entry> <organizer moodCode="EVN" classCode= "BATTERY"> <templateId root="2.16.840.1.764102.10..22.4.1" /> <id nullFlavor="NA" /> <code codeSystem="local" code="UC" displayName="URINE CULTURE" /> <statusCode code="completed" /> <component> < observation moodCode="EVN" classCode="OBS"> <templateId root= "2.16.840.1.619611.10..22.4.2" /> <id nullFlavor="NA" /> < code codeSystem="local" code="MB" displayName="Microbiology" /> < statusCode code="completed" /> <effectiveTime value="[id number]" /> <value xsi:type="ST" value="<pre><b>URINE CULTURE</b> See BelowURINE CULTURE(F) Franko Date/Time: 01/31/2016 19:18 Luly Date/Time: 2016 08:28SOURCE: URINESPEC DESC: CLEAN CATCHTREATMENT OF ASYMPTOMATIC BACTERIURIA IS NOT USUALLYCLINICALLY INDICATED.MIXED GRAM POSITIVE?MIXED GRAM POSITIVE BACTERIAGROUP B STREP? .INCLUDING [facility] [place] [address]</pre>" /> <referenceRange> <observationRange> <text /> </observationRange> </referenceRange> </observation> </component> </organizer> </entry> <entry> < organizer moodCode="EVN" classCode="BATTERY"> <templateId root= "2.16.840.1.142582.10.20.22.4.1" /> <id nullFlavor="NA" /> <code codeSystem="local" code="UA" displayName="URINALYSIS, ROUTINE" /> < statusCode code="completed" /> <component> <observation moodCode= "EVN" classCode="OBS"> <templateId root="2.16.840.1.941170.10.20.22.4.2 " /> <id nullFlavor="NA" /> <code codeSystem="local" code= "LEUESU" displayName="UA LEUKOCYTE ESTERASE DIPSTICK" /> <statusCode code="completed" /> <effectiveTime value="[id number]" /> < value unit="" xsi:type="PQ" value="TRACE" /> <referenceRange> <observationRange> <text>NEGATIVE</text> </ observationRange> </referenceRange> </observation> </ component> <component> <observation moodCode="EVN" classCode="OBS"> <templateId root="2.16.840.1.183673.10.20.22.4.2" /> <id nullFlavor="NA" /> <code codeSystem="local" code="NITRIU" displayName= "UA NITRITE DIPSTICK" /> <statusCode code="completed" /> < effectiveTime value="" /> <value unit="" xsi:type="PQ" value="NEGATIVE" /> <referenceRange> <observationRange> <text>NEGATIVE</text> </observationRange> </ referenceRange> </observation> </component> <component> <observation moodCode="EVN" classCode="OBS"> <templateId root= "05.07.840.1.686098.10.4.2" /> <id nullFlavor="NA" /> < code codeSystem="local" code="PROTEIU" displayName="UA PROTEIN DIPSTICK" /> <statusCode code="completed" /> <effectiveTime value= "" /> <value unit="" xsi:type="PQ" value="NEGATIVE" /> <referenceRange> <observationRange> <text>NEGATIVE </text> </observationRange> </referenceRange> </ observation> </component> <component> <observation moodCode= "EVN" classCode="OBS"> <templateId root="05.07.840.1.528002.01.08.22.4.2 " /> <id nullFlavor="NA" /> <code codeSystem="local" code= "DGLUU" displayName="UA GLUCOSE DIPSTICK" /> <statusCode code= "completed" /> <effectiveTime value="" /> <value unit="" xsi:type="PQ" value="NEGATIVE" /> <referenceRange> < observationRange> <text>NEGATIVE</text> </ observationRange> </referenceRange> </observation> </ component> <component> <observation moodCode="EVN" classCode="OBS"> <templateId root="05.07.840.1.845183.01.08.22.4.2" /> <id nullFlavor="NA" /> <code codeSystem="local" code="KETONU" displayName= "UA KETONE DIPSTICK" /> <statusCode code="completed" /> < effectiveTime value="" /> <value unit="" xsi:type="PQ" value="NEGATIVE" /> <referenceRange> <observationRange> <text>NEGATIVE</text> </observationRange> </ referenceRange> </observation> </component> <component> <observation moodCode="EVN" classCode="OBS"> <templateId root= "16.840.1.710097.10..22.4.2" /> <id nullFlavor="NA" /> < code codeSystem="local" code="UROBILU" displayName="UA UROBILINOGEN DIPSTICK" / > <statusCode code="completed" /> <effectiveTime value= "" /> <value unit="" xsi:type="PQ" value="NORMAL" /> <referenceRange> <observationRange> <text>NORMAL</ text> </observationRange> </referenceRange> </ observation> </component> <component> <observation moodCode= "EVN" classCode="OBS"> <templateId root="216.840.1.866292.10..22.4.2 " /> <id nullFlavor="NA" /> <code codeSystem="local" code= "BILU" displayName="UA BILIRUBIN DIPSTICK" /> <statusCode code= "completed" /> <effectiveTime value="" /> <value unit="" xsi:type="PQ" value="NEGATIVE" /> <referenceRange> < observationRange> <text>NEGATIVE</text> </ observationRange> </referenceRange> </observation> </ component> <component> <observation moodCode="EVN" classCode="OBS"> <templateId root="16.840.1.167020.1022.4.2" /> <id nullFlavor="NA" /> <code codeSystem="local" code="BREANNA" displayName="UA BLOOD DIPSTICK" /> <statusCode code="completed" /> < effectiveTime value="" /> <value unit="" xsi:type="PQ" value="1+" /> <interpretationCode codeSystem="local" code="*" /> <referenceRange> <observationRange> <text>NEGATIVE</ text> </observationRange> </referenceRange> </ observation> </component> <component> <observation moodCode= "EVN" classCode="OBS"> <templateId root="840.1.283683.01.08.22.4.2 " /> <id nullFlavor="NA" /> <code codeSystem="local" code= "SPGRU" displayName="UA SPECIFIC GRAVITY" /> <statusCode code= "completed" /> <effectiveTime value="" /> <value unit="" xsi:type="PQ" value=">=1.030" /> <interpretationCode codeSystem="local" code="*" /> <referenceRange> < observationRange> <text>1.015-1.025</text> </ observationRange> </referenceRange> </observation> </ component> <component> <observation moodCode="EVN" classCode="OBS"> <templateId root="05.07.840.1.434739.10.22.4.2" /> <id nullFlavor="NA" /> <code codeSystem="local" code="CLOVER" displayName="UR PH" /> <statusCode code="completed" /> <effectiveTime value= "" /> <value unit="" xsi:type="PQ" value="5.5" /> <referenceRange> <observationRange> <text>5.0-7.0</text > </observationRange> </referenceRange> </observation > </component> </organizer> </entry> <entry> <organizer moodCode= "EVN" classCode="BATTERY"> <templateId root="16.840.1.594503.10.22.4.1 " /> <id nullFlavor="NA" /> <code codeSystem="local" code="UAMICRO" displayName="UA MICROSCOPIC" /> <statusCode code="completed" /> < component> <observation moodCode="EVN" classCode="OBS"> < templateId root="216.840.1.920484.01.08.22.4.2" /> <id nullFlavor="NA " /> <code codeSystem="local" code="BACU" displayName="UA BACTERIA" /> <statusCode code="completed" /> <effectiveTime value= "" /> <value unit="" xsi:type="PQ" value="1+" /> < interpretationCode codeSystem="local" code="*" /> <referenceRange> <observationRange> <text>NEGATIVE</text> </ observationRange> </referenceRange> </observation> </ component> <component> <observation moodCode="EVN" classCode="OBS"> <templateId root="16.840.1.277935.01.08.22.4.2" /> <id nullFlavor="NA" /> <code codeSystem="local" code="EPIU" displayName=" UA EPITHELIAL CELLS" /> <statusCode code="completed" /> < effectiveTime value="" /> <value unit="epi/hpf" xsi:type= "PQ" value="3+" /> <interpretationCode codeSystem="local" code="*" /> <referenceRange> <observationRange> <text>0 - 1 +</text> </observationRange> </referenceRange> </ observation> </component> <component> <observation moodCode= "EVN" classCode="OBS"> <templateId root="05.07.840.1.818576.10.22.4.2 " /> <id nullFlavor="NA" /> <code codeSystem="local" code= "MUCUSU" displayName="UA MUCUS" /> <statusCode code="completed" /> <effectiveTime value="" /> <value unit="" xsi:type= "PQ" value="3+" /> <interpretationCode codeSystem="local" code="*" /> <referenceRange> <observationRange> <text>NEG TO 1+</text> </observationRange> </referenceRange> </ observation> </component> <component> <observation moodCode= "EVN" classCode="OBS"> <templateId root="05.07.840.1.119096.01.08.22.4.2 " /> <id nullFlavor="NA" /> <code codeSystem="local" code= "RBCU" displayName="UA RBC" /> <statusCode code="completed" /> <effectiveTime value="" /> <value unit="rbc/hpf" xsi:type ="PQ" value="3-5" /> <interpretationCode codeSystem="local" code="*" / > <referenceRange> <observationRange> <text>0 - 3</text> </observationRange> </referenceRange> </ observation> </component> <component> <observation moodCode= "EVN" classCode="OBS"> <templateId root="05.07.840.1.858376.10..22.4.2 " /> <id nullFlavor="NA" /> <code codeSystem="local" code= "UAVOL" displayName="UA VOLUME FOR EXAM" /> <statusCode code="completed " /> <effectiveTime value="" /> <value unit="mL" xsi:type="PQ" value="12.0" /> <referenceRange> < observationRange> <text>(12mL STD)</text> </ observationRange> </referenceRange> </observation> </ component> <component> <observation moodCode="EVN" classCode="OBS"> <templateId root="216.840.1.007880.01.08.22.4.2" /> <id nullFlavor="NA" /> <code codeSystem="local" code="WBCU" displayName=" UA WBC" /> <statusCode code="completed" /> <effectiveTime value="" /> <value unit="wbc/hpf" xsi:type="PQ" value="20- 50" /> <interpretationCode codeSystem="local" code="*" /> < referenceRange> <observationRange> <text>0 - 5</text> </observationRange> </referenceRange> </observation> </component> </organizer> </entry> <entry> <organizer moodCode="EVN " classCode="BATTERY"> <templateId root="216.840.1.820083.10..4.1" / > <id nullFlavor="NA" /> <code codeSystem="local" code="PREGU" displayName="UR TEST" /> <statusCode code="completed" /> < component> <observation moodCode="EVN" classCode="OBS"> < templateId root="16.840.1.476662.01.08.22.4.2" /> <id nullFlavor="NA " /> <code codeSystem="local" code="PREGU" displayName="UR TEST" /> <statusCode code="completed" /> <effectiveTime value= "" /> <value unit="" xsi:type="PQ" value="NEGATIVE" /> <referenceRange> <observationRange> <text>NEGATIVE </text> </observationRange> </referenceRange> </ observation> </component> </organizer> </entry> <entry> <organizer moodCode="EVN" classCode="BATTERY"> <templateId root= "216.840.1.263294.10..22.4.1" /> <id nullFlavor="NA" /> <code codeSystem="local" code="DRUGAB" displayName="UR DRUGS OF ABUSE SCREEN" /> <statusCode code="completed" /> <component> <observation moodCode= "EVN" classCode="OBS"> <templateId root="216.840.1.470105.10..22.4.2 " /> <id nullFlavor="NA" /> <code codeSystem="local" code= "AMPHU" displayName="UR AMPHETAMINES SCREEN" /> <statusCode code= "completed" /> <effectiveTime value="" /> <value unit="" xsi:type="PQ" value="NEG (<1000 ng/mL)" /> <referenceRange > <observationRange> <text>NEGATIVE</text> </ observationRange> </referenceRange> </observation> </ component> <component> <observation moodCode="EVN" classCode="OBS"> <templateId root="216.840.1.239451.10..22.4.2" /> <id nullFlavor="NA" /> <code codeSystem="local" code="BARBU" displayName= "UR BARBITURATE SCREEN" /> <statusCode code="completed" /> < effectiveTime value="" /> <value unit="" xsi:type="PQ" value="NEG (< 200 ng/mL)" /> <referenceRange> < observationRange> <text>NEGATIVE</text> </ observationRange> </referenceRange> </observation> </ component> <component> <observation moodCode="EVN" classCode="OBS"> <templateId root="2.16.840.1.513523.10..22.4.2" /> <id nullFlavor="NA" /> <code codeSystem="local" code="DAUCOMMENT" displayName="DRUGS OF ABUSE SCREEN COMMENT" /> <statusCode code= "completed" /> <effectiveTime value="" /> <value unit="" xsi:type="PQ" value="" /> <referenceRange> < observationRange> <text /> </observationRange> </referenceRange> </observation> </component> <component> <observation moodCode="EVN" classCode="OBS"> <templateId root= "216.840.1.251718.10..4.2" /> <id nullFlavor="NA" /> < code codeSystem="local" code="OPIU" displayName="UR OPIATES SCREEN" /> <statusCode code="completed" /> <effectiveTime value="" /> <value unit="" xsi:type="PQ" value="NEG (< 300 ng/mL)" /> <referenceRange> <observationRange> <text>NEGATIVE</ text> </observationRange> </referenceRange> </ observation> </component> <component> <observation moodCode= "EVN" classCode="OBS"> <templateId root="216.840.1.503617.10...4.2 " /> <id nullFlavor="NA" /> <code codeSystem="local" code= "PCPU" displayName="UR PHENCYCLIDINE (PCP) SCREEN" /> <statusCode code= "completed" /> <effectiveTime value="" /> <value unit="" xsi:type="PQ" value="NEG (< 25 ng/mL)" /> <referenceRange > <observationRange> <text>NEGATIVE</text> </ observationRange> </referenceRange> </observation> </ component> <component> <observation moodCode="EVN" classCode="OBS"> <templateId root="2.16.840.1.474661.10..4.2" /> <id nullFlavor="NA" /> <code codeSystem="local" code="THCU" displayName=" UR CANNABINOIDS (THC) SCREEN" /> <statusCode code="completed" /> <effectiveTime value="" /> <value unit="" xsi:type="PQ " value="POS (> 50 ng/mL)" /> <interpretationCode codeSystem= "local" code="*" /> <referenceRange> <observationRange> <text>NEGATIVE</text> </observationRange> </ referenceRange> </observation> </component> <component> <observation moodCode="EVN" classCode="OBS"> <templateId root= "2.16.840.1.330857.10..22.4.2" /> <id nullFlavor="NA" /> < code codeSystem="local" code="COCAU" displayName="UR COCAINE METABOLITE SCREEN" /> <statusCode code="completed" /> <effectiveTime value= "" /> <value unit="" xsi:type="PQ" value="POS (> 300 ng /mL)" /> <interpretationCode codeSystem="local" code="*" /> < referenceRange> <observationRange> <text>NEGATIVE</text > </observationRange> </referenceRange> </observation > </component> <component> <observation moodCode="EVN" classCode="OBS"> <templateId root="05.07.840.1.626923.10.22.4.2" /> <id nullFlavor="NA" /> <code codeSystem="local" code="METHU" displayName="UR METHADONE SCREEN" /> <statusCode code="completed" /> <effectiveTime value="" /> <value unit="" xsi:type= "PQ" value="NEG (< 300 ng/mL)" /> <referenceRange> < observationRange> <text>NEGATIVE</text> </ observationRange> </referenceRange> </observation> </ component> <component> <observation moodCode="EVN" classCode="OBS"> <templateId root="05.07.840.1.161087.01.08.22.4.2" /> <id nullFlavor="NA" /> <code codeSystem="local" code="BENZU" displayName= "UR BENZODIAZEPINE SCREEN" /> <statusCode code="completed" /> <effectiveTime value="" /> <value unit="" xsi:type="PQ" value="NEG (< 200 ng/mL)" /> <referenceRange> < observationRange> <text>NEGATIVE</text> </ observationRange> </referenceRange> </observation> </ component> </organizer> </entry> <entry> <organizer moodCode="EVN" classCode="BATTERY"> <templateId root="05.07.840.1.434783.1022.4.1" /> <id nullFlavor="NA" /> <code codeSystem="local" code="CHL" displayName ="CHLAMYDIA DNA BY PCR" /> <statusCode code="completed" /> <component > <observation moodCode="EVN" classCode="OBS"> <templateId root= "05.07.840.1.367691.102022.4.2" /> <id nullFlavor="NA" /> < code codeSystem="local" code="MB" displayName="Microbiology" /> < statusCode code="completed" /> <effectiveTime value="" /> <value xsi:type="ST" value="<pre><b>CHLAMYDIA DNA BY PCR - GONORRHOEA DNA BY PCR</b> See BelowCHLAMYDIA DNA BY PCR(F) Franko Date/Time: 2015 19:31 Luly Date/Time: 02/03/2016 13:22SOURCE : URINESPEC DESC: [address] [address] BelowGONORRHOEA DNA BY PCR(F) Franko Date/Time: 01/31/2016 19:31 Luly Date/Time: 02/03/2016 13:22SOURCE: URINESPEC DESC: [address] [address]</ pre>" /> <referenceRange> <observationRange> < text /> </observationRange> </referenceRange> </ observation> </component> </organizer> </entry> <entry> <organizer moodCode="EVN" classCode="BATTERY"> <templateId root= "2.16.840.1.326588.10..22.4.1" /> <id nullFlavor="NA" /> <code codeSystem="local" code="WET" displayName="WET MOUNT" /> <statusCode code= "completed" /> <component> <observation moodCode="EVN" classCode= "OBS"> <templateId root="2.16.840.1.868040.10..22.4.2" /> < id nullFlavor="NA" /> <code codeSystem="local" code="MB" displayName= "Microbiology" /> <statusCode code="completed" /> < effectiveTime value="" /> <value xsi:type="ST" value="<pre> <b>WET MOUNT</b> See Below: [facility] room 47 jkgWET MOUNT(F) Franko Date/Time: 01/31/2016 20:00 Luly Date/Time: 2015 21:01SOURCE: VAGINALSPEC DESC: CLUE CELLSNO CLUE CELLS SEENTRICHOMONASNO TRICHOMONAS SEENYEAST (Abnormal)MANY YEAST (Abnormal)[address] [address]</pre>" /> <referenceRange > <observationRange> <text /> </ observationRange> </referenceRange> </observation> </ component> </organizer> </entry> <entry> <organizer moodCode="EVN" classCode="BATTERY"> <templateId root="2.16.840.1.837457.10.20.22.4.1" /> <id nullFlavor="NA" /> <code codeSystem="local" code="GRAM" displayName="GRAM STAIN - CHLAMYDIA DNA BY PCR" /> <statusCode code= "completed" /> <component> <observation moodCode="EVN" classCode= "OBS"> <templateId root="2.16.840.1.871410.10.20.22.4.2" /> < id nullFlavor="NA" /> <code codeSystem="local" code="MB" displayName= "Microbiology" /> <statusCode code="completed" /> < effectiveTime value="[id number]" /> <value xsi:type="ST" value="<pre> <b>GRAM STAIN</b> See Below: [facility] room 47 jkgGRAM STAIN(F) Franko Date/Time: 01/31/2016 20:00 Luly Date/Time: 01/31/2016 21:03SOURCE: VAGINALSPEC DESC: GRAM STAINRARE NEUTROPHILSNO ORGANISMS SEEN RESEMBLING NEISSERIA GONORRHOEAEMANY GRAM POSITIVE BACILLI RESEMBLING LACTOBACILLUS[address] [address]</ pre>" /> <referenceRange> <observationRange> < text /> </observationRange> </referenceRange> </ observation> </component> </organizer> </entry> <entry> <organizer moodCode="EVN" classCode="BATTERY"> <templateId root= "16.840.1.453989.10..22.4.1" /> <id nullFlavor="NA" /> <code codeSystem="local" code="iCHEM8" displayName="CHEM/HEM PROFILE-BEDSIDE" /> <statusCode code="completed" /> <component> <observation moodCode= "EVN" classCode="OBS"> <templateId root="05.07.840.1.510936....4.2 " /> <id nullFlavor="NA" /> <code codeSystem="local" code="K" displayName="POTASSIUM" /> <statusCode code="completed" /> < effectiveTime value="[id number]" /> <value unit="mmol/L" xsi:type="PQ " value="3.5" /> <referenceRange> <observationRange> <text>3.5-5.3</text> </observationRange> </ referenceRange> </observation> </component> <component> <observation moodCode="EVN" classCode="OBS"> <templateId root= "05.07.840.1.872361.10...4.2" /> <id nullFlavor="NA" /> < code codeSystem="local" code="CMETHOD" displayName="METHOD" /> < statusCode code="completed" /> <effectiveTime value="286438816009" /> <value unit="" xsi:type="PQ" value="Bedside" /> < referenceRange> <observationRange> <text /> < /observationRange> </referenceRange> </observation> </ component> <component> <observation moodCode="EVN" classCode="OBS"> <templateId root="840.1.243002.10..22.4.2" /> <id nullFlavor="NA" /> <code codeSystem="local" code="GAP" displayName= "ANION GAP" /> <statusCode code="completed" /> <effectiveTime value="" /> <value unit="mmol/L" xsi:type="PQ" value="0" / > <interpretationCode codeSystem="local" code="*" /> < referenceRange> <observationRange> <text>10-20</text> </observationRange> </referenceRange> </observation> </component> <component> <observation moodCode="EVN" classCode= "OBS"> <templateId root="216.840.1.041669.10...4.2" /> < id nullFlavor="NA" /> <code codeSystem="local" code="HMETHOD" displayName="METHOD" /> <statusCode code="completed" /> < effectiveTime value="" /> <value unit="" xsi:type="PQ" value="Bedside" /> <referenceRange> <observationRange> <text /> </observationRange> </referenceRange> </observation> </component> <component> <observation moodCode="EVN" classCode="OBS"> <templateId root= "2.16.840.1.444694.10.22.4.2" /> <id nullFlavor="NA" /> < code codeSystem="local" code="GLU" displayName="GLUCOSE" /> < statusCode code="completed" /> <effectiveTime value="368607612787" /> <value unit="mg/dL" xsi:type="PQ" value="95" /> < referenceRange> <observationRange> <text>70-99</text> </observationRange> </referenceRange> </observation> </component> <component> <observation moodCode="EVN" classCode= "OBS"> <templateId root="216.840.1.839844.10..22.4.2" /> < id nullFlavor="NA" /> <code codeSystem="local" code="BUN" displayName= "BLOOD UREA NITROGEN" /> <statusCode code="completed" /> < effectiveTime value="" /> <value unit="mg/dL" xsi:type="PQ " value="16" /> <referenceRange> <observationRange> <text>7-20</text> </observationRange> </referenceRange > </observation> </component> <component> <observation moodCode="EVN" classCode="OBS"> <templateId root= "216.840.1.939388.10..4.2" /> <id nullFlavor="NA" /> < code codeSystem="local" code="CREAT" displayName="CREATININE" /> < statusCode code="completed" /> <effectiveTime value="" /> <value unit="mg/dL" xsi:type="PQ" value="0.8" /> < referenceRange> <observationRange> <text>0.6-1.0</text> </observationRange> </referenceRange> </observation > </component> <component> <observation moodCode="EVN" classCode="OBS"> <templateId root="[id number]" /> <id nullFlavor="NA" /> <code codeSystem="local" code="HGBT" displayName="HEMOGLOBIN" /> <statusCode code="completed" /> < effectiveTime value="" /> <value unit="gm/dL" xsi:type="PQ " value="12.6" /> <referenceRange> <observationRange> <text>12.0-16.0</text> </observationRange> </ referenceRange> </observation> </component> <component> <observation moodCode="EVN" classCode="OBS"> <templateId root= "[id number]..22.4.2" /> <id nullFlavor="NA" /> < code codeSystem="local" code="HCTT" displayName="HEMATOCRIT" /> < statusCode code="completed" /> <effectiveTime value="" /> <value unit="%" xsi:type="PQ" value="37.0" /> < referenceRange> <observationRange> <text>37.0-47.0</text > </observationRange> </referenceRange> </observation > </component> <component> <observation moodCode="EVN" classCode="OBS"> <templateId root="05.07.840.1.639232.10..4.2" /> <id nullFlavor="NA" /> <code codeSystem="local" code="NA" displayName="SODIUM" /> <statusCode code="completed" /> < effectiveTime value="" /> <value unit="mmol/L" xsi:type="PQ " value="141" /> <referenceRange> <observationRange> <text>135-148</text> </observationRange> </ referenceRange> </observation> </component> <component> <observation moodCode="EVN" classCode="OBS"> <templateId root= "05.07.840.1.666152.10..22.4.2" /> <id nullFlavor="NA" /> < code codeSystem="local" code="CL" displayName="CHLORIDE" /> < statusCode code="completed" /> <effectiveTime value="993014549088" /> <value unit="mmol/L" xsi:type="PQ" value="102" /> < referenceRange> <observationRange> <text>98-110</text> </observationRange> </referenceRange> </observation> </component> <component> <observation moodCode="EVN" classCode ="OBS"> <templateId root="216.840.1.309751.10..22.4.2" /> < id nullFlavor="NA" /> <code codeSystem="local" code="CO2" displayName= "CARBON DIOXIDE" /> <statusCode code="completed" /> < effectiveTime value="659418455105" /> <value unit="mmol/L" xsi:type="PQ " value="43" /> <interpretationCode codeSystem="local" code="*" /> <referenceRange> <observationRange> <text>21-32</ text> </observationRange> </referenceRange> </ observation> </component> <component> <observation moodCode= "EVN" classCode="OBS"> <templateId root="16.840.1.310872...4.2 " /> <id nullFlavor="NA" /> <code codeSystem="local" code= "CAION" displayName="CALCIUM IONIZED" /> <statusCode code="completed" / > <effectiveTime value="246069820129" /> <value unit="mg/dL" xsi:type="PQ" value="4.7" /> <referenceRange> < observationRange> <text>4.5-5.3</text> </ observationRange> </referenceRange> </observation> </ component> </organizer> </entry> <entry> <organizer moodCode="EVN" classCode="BATTERY"> <templateId root="216.840.1.850048.10...4.1" /> <id nullFlavor="NA" /> <code codeSystem="local" code="UA" displayName= "URINALYSIS, ROUTINE" /> <statusCode code="completed" /> <component> <observation moodCode="EVN" classCode="OBS"> <templateId root= "216.840.1.228241.10..4.2" /> <id nullFlavor="NA" /> < code codeSystem="local" code="LEUESU" displayName="UA LEUKOCYTE ESTERASE DIPSTICK" /> <statusCode code="completed" /> <effectiveTime value="" /> <value unit="" xsi:type="PQ" value="NEGATIVE" / > <referenceRange> <observationRange> <text> NEGATIVE</text> </observationRange> </referenceRange> </observation> </component> <component> <observation moodCode ="EVN" classCode="OBS"> <templateId root= "05.07.840.1.440688.10.4.2" /> <id nullFlavor="NA" /> < code codeSystem="local" code="NITRIU" displayName="UA NITRITE DIPSTICK" /> <statusCode code="completed" /> <effectiveTime value=" " /> <value unit="" xsi:type="PQ" value="NEGATIVE" /> < referenceRange> <observationRange> <text>NEGATIVE</text > </observationRange> </referenceRange> </observation > </component> <component> <observation moodCode="EVN" classCode="OBS"> <templateId root="05.07.840.1.750075.10.4.2" /> <id nullFlavor="NA" /> <code codeSystem="local" code="PROTEIU " displayName="UA PROTEIN DIPSTICK" /> <statusCode code="completed" /> <effectiveTime value="" /> <value unit="" xsi: type="PQ" value="1+" /> <interpretationCode codeSystem="local" code="* " /> <referenceRange> <observationRange> <text> NEGATIVE</text> </observationRange> </referenceRange> </observation> </component> <component> <observation moodCode ="EVN" classCode="OBS"> <templateId root= "216.840.1.276149.01.08.22.4.2" /> <id nullFlavor="NA" /> < code codeSystem="local" code="DGLUU" displayName="UA GLUCOSE DIPSTICK" /> <statusCode code="completed" /> <effectiveTime value=" " /> <value unit="" xsi:type="PQ" value="NEGATIVE" /> < referenceRange> <observationRange> <text>NEGATIVE</text > </observationRange> </referenceRange> </observation > </component> <component> <observation moodCode="EVN" classCode="OBS"> <templateId root="05.07.840.1.864563.01.08.22.4.2" /> <id nullFlavor="NA" /> <code codeSystem="local" code="KETONU" displayName="UA KETONE DIPSTICK" /> <statusCode code="completed" /> <effectiveTime value="" /> <value unit="" xsi:type= "PQ" value="1+" /> <interpretationCode codeSystem="local" code="*" /> <referenceRange> <observationRange> <text> NEGATIVE</text> </observationRange> </referenceRange> </observation> </component> <component> <observation moodCode ="EVN" classCode="OBS"> <templateId root= "216.840.1.641468.01.08.22.4.2" /> <id nullFlavor="NA" /> < code codeSystem="local" code="UROBILU" displayName="UA UROBILINOGEN DIPSTICK" / > <statusCode code="completed" /> <effectiveTime value= "219471899789" /> <value unit="" xsi:type="PQ" value="NORMAL" /> <referenceRange> <observationRange> <text>NORMAL</ text> </observationRange> </referenceRange> </ observation> </component> <component> <observation moodCode= "EVN" classCode="OBS"> <templateId root="2.16.840.1.149669.01.08.22.4.2 " /> <id nullFlavor="NA" /> <code codeSystem="local" code= "BILU" displayName="UA BILIRUBIN DIPSTICK" /> <statusCode code= "completed" /> <effectiveTime value="" /> <value unit="" xsi:type="PQ" value="1+" /> <interpretationCode codeSystem= "local" code="*" /> <referenceRange> <observationRange> <text>NEGATIVE</text> </observationRange> </ referenceRange> </observation> </component> <component> <observation moodCode="EVN" classCode="OBS"> <templateId root= "2.16.840.1.528823.01.08.22.4.2" /> <id nullFlavor="NA" /> < code codeSystem="local" code="BREANNA" displayName="UA BLOOD DIPSTICK" /> < statusCode code="completed" /> <effectiveTime value="306177731789" /> <value unit="" xsi:type="PQ" value="NEGATIVE" /> < referenceRange> <observationRange> <text>NEGATIVE</text > </observationRange> </referenceRange> </observation > </component> <component> <observation moodCode="EVN" classCode="OBS"> <templateId root="216.840.1.116887.10..22.4.2" /> <id nullFlavor="NA" /> <code codeSystem="local" code="SPGRU" displayName="UA SPECIFIC GRAVITY" /> <statusCode code="completed" /> <effectiveTime value="105626528992" /> <value unit="" xsi:type= "PQ" value=">=1.030" /> <interpretationCode codeSystem="local" code= "*" /> <referenceRange> <observationRange> < text>1.015-1.025</text> </observationRange> </referenceRange > </observation> </component> <component> <observation moodCode="EVN" classCode="OBS"> <templateId root= "216.840.1.769974.01.08.22.4.2" /> <id nullFlavor="NA" /> < code codeSystem="local" code="CLOVER" displayName="UR PH" /> <statusCode code="completed" /> <effectiveTime value="969140409560" /> < value unit="" xsi:type="PQ" value="5.5" /> <referenceRange> <observationRange> <text>5.0-7.0</text> </ observationRange> </referenceRange> </observation> </ component> </organizer> </entry> <entry> <organizer moodCode="EVN" classCode="BATTERY"> <templateId root="2.16.840.1.334960.10..22.4.1" /> <id nullFlavor="NA" /> <code codeSystem="local" code="UAMICRO" displayName="UA MICROSCOPIC" /> <statusCode code="completed" /> < component> <observation moodCode="EVN" classCode="OBS"> < templateId root="05.07.840.1.921776.10..22.4.2" /> <id nullFlavor="NA " /> <code codeSystem="local" code="BACU" displayName="UA BACTERIA" /> <statusCode code="completed" /> <effectiveTime value= "" /> <value unit="" xsi:type="PQ" value="2+" /> < interpretationCode codeSystem="local" code="*" /> <referenceRange> <observationRange> <text>NEGATIVE</text> </ observationRange> </referenceRange> </observation> </ component> <component> <observation moodCode="EVN" classCode="OBS"> <templateId root="840.1.594277.01.08.22.4.2" /> <id nullFlavor="NA" /> <code codeSystem="local" code="EPIU" displayName=" UA EPITHELIAL CELLS" /> <statusCode code="completed" /> < effectiveTime value="" /> <value unit="epi/hpf" xsi:type= "PQ" value="1+" /> <referenceRange> <observationRange> <text>0 - 1+</text> </observationRange> </ referenceRange> </observation> </component> <component> <observation moodCode="EVN" classCode="OBS"> <templateId root= "05.07.840.1.628617.10...4.2" /> <id nullFlavor="NA" /> < code codeSystem="local" code="MUCUSU" displayName="UA MUCUS" /> < statusCode code="completed" /> <effectiveTime value="694902438506" /> <value unit="" xsi:type="PQ" value="4+" /> < interpretationCode codeSystem="local" code="*" /> <referenceRange> <observationRange> <text>NEG TO 1+</text> </ observationRange> </referenceRange> </observation> </ component> <component> <observation moodCode="EVN" classCode="OBS"> <templateId root="216.840.1.058053.10.22.4.2" /> <id nullFlavor="NA" /> <code codeSystem="local" code="RBCU" displayName=" UA RBC" /> <statusCode code="completed" /> <effectiveTime value="" /> <value unit="rbc/hpf" xsi:type="PQ" value="0-3 " /> <referenceRange> <observationRange> <text> 0 - 3</text> </observationRange> </referenceRange> </ observation> </component> <component> <observation moodCode= "EVN" classCode="OBS"> <templateId root="05.07.840.1.836410.10.4.2 " /> <id nullFlavor="NA" /> <code codeSystem="local" code= "UAVOL" displayName="UA VOLUME FOR EXAM" /> <statusCode code="completed " /> <effectiveTime value="" /> <value unit="mL" xsi:type="PQ" value="12.0" /> <referenceRange> < observationRange> <text>(12mL STD)</text> </ observationRange> </referenceRange> </observation> </ component> <component> <observation moodCode="EVN" classCode="OBS"> <templateId root="05.07.840.1.737782.1022.4.2" /> <id nullFlavor="NA" /> <code codeSystem="local" code="WBCU" displayName=" UA WBC" /> <statusCode code="completed" /> <effectiveTime value="800446322975" /> <value unit="wbc/hpf" xsi:type="PQ" value="2-5 " /> <referenceRange> <observationRange> <text> 0 - 5</text> </observationRange> </referenceRange> </ observation> </component> </organizer> </entry> <entry> <organizer moodCode="EVN" classCode="BATTERY"> <templateId root= "05.07.840.1.023783.01.08.22.4.1" /> <id nullFlavor="NA" /> <code codeSystem="local" code="PREGU" displayName="UR TEST" /> < statusCode code="completed" /> <component> <observation moodCode= "EVN" classCode="OBS"> <templateId root="16.840.1.998688.01.08.22.4.2 " /> <id nullFlavor="NA" /> <code codeSystem="local" code= "PREGU" displayName="UR TEST" /> <statusCode code="completed " /> <effectiveTime value="094987204669" /> <value unit="" xsi :type="PQ" value="NEGATIVE" /> <referenceRange> < observationRange> <text>NEGATIVE</text> </ observationRange> </referenceRange> </observation> </ component> </organizer> </entry> <entry> <organizer moodCode="EVN" classCode="BATTERY"> <templateId root="05.07.840.1.642281.22.4.1" /> <id nullFlavor="NA" /> <code codeSystem="local" code="UA" displayName= "URINALYSIS, ROUTINE" /> <statusCode code="completed" /> <component> <observation moodCode="EVN" classCode="OBS"> <templateId root= "05.07.840.1.133307.01.08.22.4.2" /> <id nullFlavor="NA" /> < code codeSystem="local" code="LEUESU" displayName="UA LEUKOCYTE ESTERASE DIPSTICK" /> <statusCode code="completed" /> <effectiveTime value="885397495038" /> <value unit="" xsi:type="PQ" value="NEGATIVE" / > <referenceRange> <observationRange> <text> NEGATIVE</text> </observationRange> </referenceRange> </observation> </component> <component> <observation moodCode ="EVN" classCode="OBS"> <templateId root= "216.840.1.606907.01.08.22.4.2" /> <id nullFlavor="NA" /> < code codeSystem="local" code="NITRIU" displayName="UA NITRITE DIPSTICK" /> <statusCode code="completed" /> <effectiveTime value="744076798707 " /> <value unit="" xsi:type="PQ" value="NEGATIVE" /> < referenceRange> <observationRange> <text>NEGATIVE</text > </observationRange> </referenceRange> </observation > </component> <component> <observation moodCode="EVN" classCode="OBS"> <templateId root="16.840.1.113498.01.08.22.4.2" /> <id nullFlavor="NA" /> <code codeSystem="local" code="PROTEIU " displayName="UA PROTEIN DIPSTICK" /> <statusCode code="completed" /> <effectiveTime value="509264949415" /> <value unit="" xsi: type="PQ" value="1+" /> <interpretationCode codeSystem="local" code="* " /> <referenceRange> <observationRange> <text> NEGATIVE</text> </observationRange> </referenceRange> </observation> </component> <component> <observation moodCode ="EVN" classCode="OBS"> <templateId root= "216.840.1.800051.10..22.4.2" /> <id nullFlavor="NA" /> < code codeSystem="local" code="DGLUU" displayName="UA GLUCOSE DIPSTICK" /> <statusCode code="completed" /> <effectiveTime value="331162241238 " /> <value unit="" xsi:type="PQ" value="NEGATIVE" /> < referenceRange> <observationRange> <text>NEGATIVE</text > </observationRange> </referenceRange> </observation > </component> <component> <observation moodCode="EVN" classCode="OBS"> <templateId root="216.840.1.436035.10..4.2" /> <id nullFlavor="NA" /> <code codeSystem="local" code="KETONU" displayName="UA KETONE DIPSTICK" /> <statusCode code="completed" /> <effectiveTime value="636224301787" /> <value unit="" xsi:type= "PQ" value="TRACE" /> <interpretationCode codeSystem="local" code="*" / > <referenceRange> <observationRange> <text> NEGATIVE</text> </observationRange> </referenceRange> </observation> </component> <component> <observation moodCode ="EVN" classCode="OBS"> <templateId root= "216.840.1.891024.10...4.2" /> <id nullFlavor="NA" /> < code codeSystem="local" code="UROBILU" displayName="UA UROBILINOGEN DIPSTICK" / > <statusCode code="completed" /> <effectiveTime value= "393085621406" /> <value unit="" xsi:type="PQ" value="NORMAL" /> <referenceRange> <observationRange> <text>NORMAL</ text> </observationRange> </referenceRange> </ observation> </component> <component> <observation moodCode= "EVN" classCode="OBS"> <templateId root="05.07.840.1.077186.10...4.2 " /> <id nullFlavor="NA" /> <code codeSystem="local" code= "BILU" displayName="UA BILIRUBIN DIPSTICK" /> <statusCode code= "completed" /> <effectiveTime value="430480365714" /> <value unit="" xsi:type="PQ" value="1+" /> <interpretationCode codeSystem= "local" code="*" /> <referenceRange> <observationRange> <text>NEGATIVE</text> </observationRange> </ referenceRange> </observation> </component> <component> <observation moodCode="EVN" classCode="OBS"> <templateId root= "840.1.852015.01.08.22.4.2" /> <id nullFlavor="NA" /> < code codeSystem="local" code="BREANNA" displayName="UA BLOOD DIPSTICK" /> < statusCode code="completed" /> <effectiveTime value="234127911588" /> <value unit="" xsi:type="PQ" value="NEGATIVE" /> < referenceRange> <observationRange> <text>NEGATIVE</text > </observationRange> </referenceRange> </observation > </component> <component> <observation moodCode="EVN" classCode="OBS"> <templateId root="05.07.840.1.560058.10.2022.4.2" /> <id nullFlavor="NA" /> <code codeSystem="local" code="SPGRU" displayName="UA SPECIFIC GRAVITY" /> <statusCode code="completed" /> <effectiveTime value="189259757259" /> <value unit="" xsi:type= "PQ" value=">=1.030" /> <interpretationCode codeSystem="local" code= "*" /> <referenceRange> <observationRange> < text>1.015-1.025</text> </observationRange> </referenceRange > </observation> </component> <component> <observation moodCode="EVN" classCode="OBS"> <templateId root= "05.07.840.1.731702.01.08.22.4.2" /> <id nullFlavor="NA" /> < code codeSystem="local" code="CLOVER" displayName="UR PH" /> <statusCode code="completed" /> <effectiveTime value="778780778357" /> < value unit="" xsi:type="PQ" value="5.5" /> <referenceRange> <observationRange> <text>5.0-7.0</text> </ observationRange> </referenceRange> </observation> </ component> </organizer> </entry> <entry> <organizer moodCode="EVN" classCode="BATTERY"> <templateId root="05.07.840.1.855268.01.08.22.4.1" /> <id nullFlavor="NA" /> <code codeSystem="local" code="UAMICRO" displayName="UA MICROSCOPIC" /> <statusCode code="completed" /> < component> <observation moodCode="EVN" classCode="OBS"> < templateId root="05.07.840.1.649749.22.4.2" /> <id nullFlavor="NA " /> <code codeSystem="local" code="BACU" displayName="UA BACTERIA" /> <statusCode code="completed" /> <effectiveTime value= "874532428213" /> <value unit="" xsi:type="PQ" value="2+" /> < interpretationCode codeSystem="local" code="*" /> <referenceRange> <observationRange> <text>NEGATIVE</text> </ observationRange> </referenceRange> </observation> </ component> <component> <observation moodCode="EVN" classCode="OBS"> <templateId root="16.840.1.643245.10..22.4.2" /> <id nullFlavor="NA" /> <code codeSystem="local" code="EPIU" displayName=" UA EPITHELIAL CELLS" /> <statusCode code="completed" /> < effectiveTime value="068661868149" /> <value unit="epi/hpf" xsi:type= "PQ" value="2+" /> <interpretationCode codeSystem="local" code="*" /> <referenceRange> <observationRange> <text>0 - 1 +</text> </observationRange> </referenceRange> </ observation> </component> <component> <observation moodCode= "EVN" classCode="OBS"> <templateId root="16.840.1.119429.10..22.4.2 " /> <id nullFlavor="NA" /> <code codeSystem="local" code= "MUCUSU" displayName="UA MUCUS" /> <statusCode code="completed" /> <effectiveTime value="279513572514" /> <value unit="" xsi:type= "PQ" value="3+" /> <interpretationCode codeSystem="local" code="*" /> <referenceRange> <observationRange> <text>NEG TO 1+</text> </observationRange> </referenceRange> </ observation> </component> <component> <observation moodCode= "EVN" classCode="OBS"> <templateId root="216.840.1.157055.10..22.4.2 " /> <id nullFlavor="NA" /> <code codeSystem="local" code= "RBCU" displayName="UA RBC" /> <statusCode code="completed" /> <effectiveTime value="829160171859" /> <value unit="rbc/hpf" xsi:type ="PQ" value="0" /> <referenceRange> <observationRange> <text>0 - 3</text> </observationRange> </ referenceRange> </observation> </component> <component> <observation moodCode="EVN" classCode="OBS"> <templateId root= "216.840.1.869784.10...4.2" /> <id nullFlavor="NA" /> < code codeSystem="local" code="UAVOL" displayName="UA VOLUME FOR EXAM" /> <statusCode code="completed" /> <effectiveTime value="877140154817" /> <value unit="mL" xsi:type="PQ" value="12.0" /> < referenceRange> <observationRange> <text>(12mL STD)</ text> </observationRange> </referenceRange> </ observation> </component> <component> <observation moodCode= "EVN" classCode="OBS"> <templateId root="16.840.1.755027.10..22.4.2 " /> <id nullFlavor="NA" /> <code codeSystem="local" code= "WBCU" displayName="UA WBC" /> <statusCode code="completed" /> <effectiveTime value="660931035651" /> <value unit="wbc/hpf" xsi:type ="PQ" value="0-1" /> <referenceRange> <observationRange> <text>0 - 5</text> </observationRange> </ referenceRange> </observation> </component> </organizer> </entry > <entry> <organizer moodCode="EVN" classCode="BATTERY"> <templateId root="05.07.840.1.112620.01.08.22.4.1" /> <id nullFlavor="NA" /> <code codeSystem="local" code="PREGU" displayName="UR TEST" /> < statusCode code="completed" /> <component> <observation moodCode= "EVN" classCode="OBS"> <templateId root="840.1.407680.01.08.22.4.2 " /> <id nullFlavor="NA" /> <code codeSystem="local" code= "PREGU" displayName="UR TEST" /> <statusCode code="completed " /> <effectiveTime value="818546306605" /> <value unit="" xsi :type="PQ" value="NEGATIVE" /> <referenceRange> < observationRange> <text>NEGATIVE</text> </ observationRange> </referenceRange> </observation> </ component> </organizer> </entry> <entry> <organizer moodCode="EVN" classCode="BATTERY"> <templateId root="05.07.840.1.188353.01.08.22.4.1" /> <id nullFlavor="NA" /> <code codeSystem="local" code="DRUGAB" displayName="UR DRUGS OF ABUSE SCREEN" /> <statusCode code="completed" /> <component> <observation moodCode="EVN" classCode="OBS"> < templateId root="05.07.840.1.822895.01.08.22.4.2" /> <id nullFlavor="NA " /> <code codeSystem="local" code="AMPHU" displayName="UR AMPHETAMINES SCREEN" /> <statusCode code="completed" /> < effectiveTime value="" /> <value unit="" xsi:type="PQ" value="NEG (<1000 ng/mL)" /> <referenceRange> < observationRange> <text>NEGATIVE</text> </ observationRange> </referenceRange> </observation> </ component> <component> <observation moodCode="EVN" classCode="OBS"> <templateId root="216.840.1.274891.10...4.2" /> <id nullFlavor="NA" /> <code codeSystem="local" code="BARBU" displayName= "UR BARBITURATE SCREEN" /> <statusCode code="completed" /> < effectiveTime value="" /> <value unit="" xsi:type="PQ" value="NEG (< 200 ng/mL)" /> <referenceRange> < observationRange> <text>NEGATIVE</text> </ observationRange> </referenceRange> </observation> </ component> <component> <observation moodCode="EVN" classCode="OBS"> <templateId root="216.840.1.758073.10...4.2" /> <id nullFlavor="NA" /> <code codeSystem="local" code="DAUCOMMENT" displayName="DRUGS OF ABUSE SCREEN COMMENT" /> <statusCode code= "completed" /> <effectiveTime value="798362274147" /> <value unit="" xsi:type="PQ" value="" /> <referenceRange> < observationRange> <text /> </observationRange> </referenceRange> </observation> </component> <component> <observation moodCode="EVN" classCode="OBS"> <templateId root= "216.840.1.591166....4.2" /> <id nullFlavor="NA" /> < code codeSystem="local" code="OPIU" displayName="UR OPIATES SCREEN" /> <statusCode code="completed" /> <effectiveTime value="" /> <value unit="" xsi:type="PQ" value="NEG (< 300 ng/mL)" /> <referenceRange> <observationRange> <text>NEGATIVE</ text> </observationRange> </referenceRange> </ observation> </component> <component> <observation moodCode= "EVN" classCode="OBS"> <templateId root="2.16.840.1.257612.10...4.2 " /> <id nullFlavor="NA" /> <code codeSystem="local" code= "PCPU" displayName="UR PHENCYCLIDINE (PCP) SCREEN" /> <statusCode code= "completed" /> <effectiveTime value="" /> <value unit="" xsi:type="PQ" value="NEG (< 25 ng/mL)" /> <referenceRange > <observationRange> <text>NEGATIVE</text> </ observationRange> </referenceRange> </observation> </ component> <component> <observation moodCode="EVN" classCode="OBS"> <templateId root="2.16.840.1.293200.10..22.4.2" /> <id nullFlavor="NA" /> <code codeSystem="local" code="THCU" displayName=" UR CANNABINOIDS (THC) SCREEN" /> <statusCode code="completed" /> <effectiveTime value="" /> <value unit="" xsi:type="PQ " value="POS (> 50 ng/mL)" /> <interpretationCode codeSystem= "local" code="*" /> <referenceRange> <observationRange> <text>NEGATIVE</text> </observationRange> </ referenceRange> </observation> </component> <component> <observation moodCode="EVN" classCode="OBS"> <templateId root= "2.16.840.1.753938.10..4.2" /> <id nullFlavor="NA" /> < code codeSystem="local" code="COCAU" displayName="UR COCAINE METABOLITE SCREEN" /> <statusCode code="completed" /> <effectiveTime value= "" /> <value unit="" xsi:type="PQ" value="NEG (< 300 ng /mL)" /> <referenceRange> <observationRange> < text>NEGATIVE</text> </observationRange> </referenceRange> </observation> </component> <component> <observation moodCode="EVN" classCode="OBS"> <templateId root= "216.840.1.394761.01.08.22.4.2" /> <id nullFlavor="NA" /> < code codeSystem="local" code="METHU" displayName="UR METHADONE SCREEN" /> <statusCode code="completed" /> <effectiveTime value=" " /> <value unit="" xsi:type="PQ" value="NEG (< 300 ng/mL)" /> <referenceRange> <observationRange> <text>NEGATIVE </text> </observationRange> </referenceRange> </ observation> </component> <component> <observation moodCode= "EVN" classCode="OBS"> <templateId root="2.16.840.1.829846.10..4.2 " /> <id nullFlavor="NA" /> <code codeSystem="local" code= "BENZU" displayName="UR BENZODIAZEPINE SCREEN" /> <statusCode code= "completed" /> <effectiveTime value="" /> <value unit="" xsi:type="PQ" value="NEG (< 200 ng/mL)" /> <referenceRange > <observationRange> <text>NEGATIVE</text> </ observationRange> </referenceRange> </observation> </ component> </organizer> </entry> <entry> <organizer moodCode="EVN" classCode="BATTERY"> <templateId root="05.07.840.1.956102.1022.4.1" /> <id nullFlavor="NA" /> <code codeSystem="local" code="CBCD" displayName="CBC W/DIFF" /> <statusCode code="completed" /> <component > <observation moodCode="EVN" classCode="OBS"> <templateId root= "05.07.840.1.261967.10..4.2" /> <id nullFlavor="NA" /> < code codeSystem="local" code="EO#" displayName="EOSINOPHIL #" /> < statusCode code="completed" /> <effectiveTime value="577561590384" /> <value unit="k/cumm" xsi:type="PQ" value="0.1" /> < referenceRange> <observationRange> <text>0.1-0.5</text> </observationRange> </referenceRange> </observation > </component> <component> <observation moodCode="EVN" classCode="OBS"> <templateId root="05.07.840.1.392070.10.2022.4.2" /> <id nullFlavor="NA" /> <code codeSystem="local" code="EO% " displayName="EOSINOPHIL %" /> <statusCode code="completed" /> <effectiveTime value="632152767918" /> <value unit="%" xsi: type="PQ" value="2" /> <referenceRange> <observationRange> <text>2-4</text> </observationRange> </ referenceRange> </observation> </component> <component> <observation moodCode="EVN" classCode="OBS"> <templateId root= "05.07.840.1.709736.10..4.2" /> <id nullFlavor="NA" /> < code codeSystem="local" code="GR#" displayName="GRANULOCYTE #" /> < statusCode code="completed" /> <effectiveTime value="924822172575" /> <value unit="k/cumm" xsi:type="PQ" value="3.6" /> < referenceRange> <observationRange> <text>2.0-9.0</text> </observationRange> </referenceRange> </observation > </component> <component> <observation moodCode="EVN" classCode="OBS"> <templateId root="840.1.050074.01.08.224.2" /> <id nullFlavor="NA" /> <code codeSystem="local" code="GR% " displayName="GRANULOCYTE %" /> <statusCode code="completed" /> <effectiveTime value="447953851746" /> <value unit="%" xsi: type="PQ" value="57" /> <referenceRange> <observationRange> <text>50-75</text> </observationRange> </ referenceRange> </observation> </component> <component> <observation moodCode="EVN" classCode="OBS"> <templateId root= "840.1.785655...4.2" /> <id nullFlavor="NA" /> < code codeSystem="local" code="LY#" displayName="LYMPHOCYTE #" /> < statusCode code="completed" /> <effectiveTime value="354631788604" /> <value unit="k/cumm" xsi:type="PQ" value="2.2" /> < referenceRange> <observationRange> <text>1.0-4.0</text> </observationRange> </referenceRange> </observation > </component> <component> <observation moodCode="EVN" classCode="OBS"> <templateId root="840.1.678418.102022.4.2" /> <id nullFlavor="NA" /> <code codeSystem="local" code="LY% " displayName="LYMPHOCYTE %" /> <statusCode code="completed" /> <effectiveTime value="625169552817" /> <value unit="%" xsi: type="PQ" value="34" /> <interpretationCode codeSystem="local" code="* " /> <referenceRange> <observationRange> <text> 20-30</text> </observationRange> </referenceRange> </ observation> </component> <component> <observation moodCode= "EVN" classCode="OBS"> <templateId root="840.1.489398.10.20.22.4.2 " /> <id nullFlavor="NA" /> <code codeSystem="local" code="MCH " displayName="MEAN CELL HGB" /> <statusCode code="completed" /> <effectiveTime value="330376005010" /> <value unit="pg" xsi:type= "PQ" value="27.8" /> <referenceRange> <observationRange> <text>27.0-33.0</text> </observationRange> </ referenceRange> </observation> </component> <component> <observation moodCode="EVN" classCode="OBS"> <templateId root= ".1.241497.1022.4.2" /> <id nullFlavor="NA" /> < code codeSystem="local" code="MCHC" displayName="MEAN CELL HGB CONCENTRATION" / > <statusCode code="completed" /> <effectiveTime value= "" /> <value unit="g/dL" xsi:type="PQ" value="32.9" /> <referenceRange> <observationRange> <text>32.0- 37.0</text> </observationRange> </referenceRange> </ observation> </component> <component> <observation moodCode= "EVN" classCode="OBS"> <templateId root="05.07.840.1.271678.01.08.22.4.2 " /> <id nullFlavor="NA" /> <code codeSystem="local" code="MCV " displayName="MEAN CELL VOLUME" /> <statusCode code="completed" /> <effectiveTime value="" /> <value unit="fl" xsi:type ="PQ" value="84.4" /> <referenceRange> <observationRange> <text>80.0-100.0</text> </observationRange> </ referenceRange> </observation> </component> <component> <observation moodCode="EVN" classCode="OBS"> <templateId root= "05.07.840.1.005792.22.4.2" /> <id nullFlavor="NA" /> < code codeSystem="local" code="MO#" displayName="MONOCYTE #" /> < statusCode code="completed" /> <effectiveTime value="" /> <value unit="k/cumm" xsi:type="PQ" value="0.4" /> < referenceRange> <observationRange> <text>0.1-1.0</text> </observationRange> </referenceRange> </observation > </component> <component> <observation moodCode="EVN" classCode="OBS"> <templateId root="216.840.1.648537.10.2022.4.2" /> <id nullFlavor="NA" /> <code codeSystem="local" code="MO% " displayName="MONOCYTE %" /> <statusCode code="completed" /> <effectiveTime value="055982435074" /> <value unit="%" xsi: type="PQ" value="7" /> <interpretationCode codeSystem="local" code="*" /> <referenceRange> <observationRange> <text>4- 6</text> </observationRange> </referenceRange> </ observation> </component> <component> <observation moodCode= "EVN" classCode="OBS"> <templateId root="16.840.1.527370.01.08.22.4.2 " /> <id nullFlavor="NA" /> <code codeSystem="local" code="RBC " displayName="RED BLOOD CELL" /> <statusCode code="completed" /> <effectiveTime value="607833774323" /> <value unit="m/cumm" xsi: type="PQ" value="4.68" /> <referenceRange> <observationRange > <text>4.00-6.00</text> </observationRange> </ referenceRange> </observation> </component> <component> <observation moodCode="EVN" classCode="OBS"> <templateId root= "216.840.1.516311.10.22.4.2" /> <id nullFlavor="NA" /> < code codeSystem="local" code="RDW" displayName="RED CELL DISTRIBUTION WIDTH" /> <statusCode code="completed" /> <effectiveTime value= "920737218798" /> <value unit="%" xsi:type="PQ" value="13.0" /> <referenceRange> <observationRange> <text>11.0- 15.6</text> </observationRange> </referenceRange> </ observation> </component> <component> <observation moodCode= "EVN" classCode="OBS"> <templateId root="216.840.1.936716.10..22.4.2 " /> <id nullFlavor="NA" /> <code codeSystem="local" code="WBC " displayName="WHITE BLOOD CELL" /> <statusCode code="completed" /> <effectiveTime value="715660939742" /> <value unit="k/cumm" xsi: type="PQ" value="6.4" /> <referenceRange> <observationRange > <text>5.0-10.0</text> </observationRange> </ referenceRange> </observation> </component> <component> <observation moodCode="EVN" classCode="OBS"> <templateId root= "216.840.1.798518.10...4.2" /> <id nullFlavor="NA" /> < code codeSystem="local" code="HGBT" displayName="HEMOGLOBIN" /> < statusCode code="completed" /> <effectiveTime value="968708920950" /> <value unit="gm/dL" xsi:type="PQ" value="13.0" /> < referenceRange> <observationRange> <text>12.0-16.0</text > </observationRange> </referenceRange> </observation > </component> <component> <observation moodCode="EVN" classCode="OBS"> <templateId root="216.840.1.080180.10.4.2" /> <id nullFlavor="NA" /> <code codeSystem="local" code="HCTT" displayName="HEMATOCRIT" /> <statusCode code="completed" /> < effectiveTime value="623310122871" /> <value unit="%" xsi:type="PQ " value="39.5" /> <referenceRange> <observationRange> <text>37.0-47.0</text> </observationRange> </ referenceRange> </observation> </component> <component> <observation moodCode="EVN" classCode="OBS"> <templateId root= "840.1.63555601.08.224.2" /> <id nullFlavor="NA" /> < code codeSystem="local" code="PLT" displayName="PLATELET COUNT" /> < statusCode code="completed" /> <effectiveTime value="685547679682" /> <value unit="k/cumm" xsi:type="PQ" value="252" /> < referenceRange> <observationRange> <text>150-400</text> </observationRange> </referenceRange> </observation > </component> </organizer> </entry> <entry> <organizer moodCode= "EVN" classCode="BATTERY"> <templateId root="05.07.840.1.607856.01.08.224.1 " /> <id nullFlavor="NA" /> <code codeSystem="local" code="LIVER" displayName="HEPATIC FUNCTION PANEL" /> <statusCode code="completed" /> <component> <observation moodCode="EVN" classCode="OBS"> < templateId root="05.07.840.1.992691.01.08.224.2" /> <id nullFlavor="NA " /> <code codeSystem="local" code="BILUC" displayName="BILI UNCONJUGATED" /> <statusCode code="completed" /> < effectiveTime value="589688952895" /> <value unit="mg/dL" xsi:type="PQ " value="1.0" /> <interpretationCode codeSystem="local" code="*" /> <referenceRange> <observationRange> <text>0.0-0.7 </text> </observationRange> </referenceRange> </ observation> </component> <component> <observation moodCode= "EVN" classCode="OBS"> <templateId root="2.16.840.1.211320.10.20.22.4.2 " /> <id nullFlavor="NA" /> <code codeSystem="local" code="AST " displayName="AST/SGOT" /> <statusCode code="completed" /> < effectiveTime value="771276118929" /> <value unit="Units/L" xsi:type= "PQ" value="9" /> <interpretationCode codeSystem="local" code="*" /> <referenceRange> <observationRange> <text>10-37< /text> </observationRange> </referenceRange> </ observation> </component> <component> <observation moodCode= "EVN" classCode="OBS"> <templateId root="216.840.1.475106.10..22.4.2 " /> <id nullFlavor="NA" /> <code codeSystem="local" code="ALT " displayName="ALT/SGPT" /> <statusCode code="completed" /> < effectiveTime value="846971764433" /> <value unit="Units/L" xsi:type= "PQ" value="19" /> <referenceRange> <observationRange> <text>< 66</text> </observationRange> </ referenceRange> </observation> </component> <component> <observation moodCode="EVN" classCode="OBS"> <templateId root= "840.1.811557.10.20.22.4.2" /> <id nullFlavor="NA" /> < code codeSystem="local" code="TP" displayName="TOTAL PROTEIN" /> < statusCode code="completed" /> <effectiveTime value="" /> <value unit="gm/dL" xsi:type="PQ" value="7.1" /> < referenceRange> <observationRange> <text>6.4-8.2</text> </observationRange> </referenceRange> </observation > </component> <component> <observation moodCode="EVN" classCode="OBS"> <templateId root="840.1.573977.1022.4.2" /> <id nullFlavor="NA" /> <code codeSystem="local" code="ALB" displayName="ALBUMIN" /> <statusCode code="completed" /> < effectiveTime value="" /> <value unit="gm/dL" xsi:type="PQ " value="3.8" /> <referenceRange> <observationRange> <text>3.4-5.0</text> </observationRange> </ referenceRange> </observation> </component> <component> <observation moodCode="EVN" classCode="OBS"> <templateId root= "05.07.840.1.432944.10.20.22.4.2" /> <id nullFlavor="NA" /> < code codeSystem="local" code="BILTOT" displayName="BILI TOTAL" /> < statusCode code="completed" /> <effectiveTime value="" /> <value unit="mg/dL" xsi:type="PQ" value="1.3" /> < interpretationCode codeSystem="local" code="*" /> <referenceRange> <observationRange> <text>0.0-1.0</text> </ observationRange> </referenceRange> </observation> </ component> <component> <observation moodCode="EVN" classCode="OBS"> <templateId root="05.07.840.1.785652.10.20.22.4.2" /> <id nullFlavor="NA" /> <code codeSystem="local" code="ALKP" displayName= "ALKALINE PHOSPHATASE TOTAL" /> <statusCode code="completed" /> <effectiveTime value="988198150832" /> <value unit="IU/L" xsi:type= "PQ" value="60" /> <referenceRange> <observationRange> <text>45-117</text> </observationRange> </ referenceRange> </observation> </component> <component> <observation moodCode="EVN" classCode="OBS"> <templateId root= "840.1.671883.10...4.2" /> <id nullFlavor="NA" /> < code codeSystem="local" code="BILC" displayName="BILI CONJUGATED" /> < statusCode code="completed" /> <effectiveTime value="887409794408" /> <value unit="mg/dL" xsi:type="PQ" value="0.3" /> < referenceRange> <observationRange> <text>0.0-0.3</text> </observationRange> </referenceRange> </observation > </component> </organizer> </entry> <entry> <organizer moodCode= "EVN" classCode="BATTERY"> <templateId root="05.07.840.1.016683.10.20.22.4.1 " /> <id nullFlavor="NA" /> <code codeSystem="local" code="MAG" displayName="MAGNESIUM" /> <statusCode code="completed" /> <component > <observation moodCode="EVN" classCode="OBS"> <templateId root= "2.16.840.1.722664.10..22.4.2" /> <id nullFlavor="NA" /> < code codeSystem="local" code="MAG" displayName="MAGNESIUM" /> < statusCode code="completed" /> <effectiveTime value="270887007993" /> <value unit="mg/dL" xsi:type="PQ" value="2.2" /> < referenceRange> <observationRange> <text>1.8-2.4</text> </observationRange> </referenceRange> </observation > </component> </organizer> </entry> <entry> <organizer moodCode= "EVN" classCode="BATTERY"> <templateId root="2.16.840.1.593125.10..22.4.1 " /> <id nullFlavor="NA" /> <code codeSystem="local" code="TSH" displayName="THYROID STIM HORMONE (TSH)" /> <statusCode code="completed" / > <component> <observation moodCode="EVN" classCode="OBS"> <templateId root="2.16.840.1.019925.10..22.4.2" /> <id nullFlavor="NA " /> <code codeSystem="local" code="TSH" displayName="THYROID STIM HORMONE (TSH)" /> <statusCode code="completed" /> < effectiveTime value="068139507464" /> <value unit="uIU/mL" xsi:type="PQ " value="0.82" /> <referenceRange> <observationRange> <text>0.46-4.13</text> </observationRange> </ referenceRange> </observation> </component> </organizer> </entry > <entry> <organizer moodCode="EVN" classCode="BATTERY"> <templateId root="16.840.1.742247.10.4.1" /> <id nullFlavor="NA" /> <code codeSystem="local" code="LIP" displayName="LIPASE" /> <statusCode code= "completed" /> <component> <observation moodCode="EVN" classCode= "OBS"> <templateId root="05.07.840.1.806712.01.08.22.4.2" /> < id nullFlavor="NA" /> <code codeSystem="local" code="LIP" displayName= "LIPASE" /> <statusCode code="completed" /> <effectiveTime value="638832424437" /> <value unit="Units/L" xsi:type="PQ" value="180 " /> <referenceRange> <observationRange> <text> 73-393</text> </observationRange> </referenceRange> < /observation> </component> </organizer> </entry> <entry> < organizer moodCode="EVN" classCode="BATTERY"> <templateId root= "05.07.840.1.082942.01.08.22.4.1" /> <id nullFlavor="NA" /> <code codeSystem="local" code="PREALB" displayName="PREALBUMIN" /> <statusCode code="completed" /> <component> <observation moodCode="EVN" classCode="OBS"> <templateId root="05.07.840.1.329835.01.08.22.4.2" /> <id nullFlavor="NA" /> <code codeSystem="local" code="PREALB" displayName="PREALBUMIN" /> <statusCode code="completed" /> < effectiveTime value="876043029734" /> <value unit="mg/dL" xsi:type="PQ " value="24" /> <referenceRange> <observationRange> <text>20-40</text> </observationRange> </ referenceRange> </observation> </component> </organizer> </entry > <entry> <organizer moodCode="EVN" classCode="BATTERY"> <templateId root="05.07.840.1.480356.10.22.4.1" /> <id nullFlavor="NA" /> <code codeSystem="local" code="iCHEM8" displayName="CHEM/HEM PROFILE-BEDSIDE" /> <statusCode code="completed" /> <component> <observation moodCode= "EVN" classCode="OBS"> <templateId root="05.07.840.1.212593.10...4.2 " /> <id nullFlavor="NA" /> <code codeSystem="local" code="K" displayName="POTASSIUM" /> <statusCode code="completed" /> < effectiveTime value="092981255001" /> <value unit="mmol/L" xsi:type="PQ " value="3.6" /> <referenceRange> <observationRange> <text>3.5-5.3</text> </observationRange> </ referenceRange> </observation> </component> <component> <observation moodCode="EVN" classCode="OBS"> <templateId root= "05.07.840.1.709678.10..22.4.2" /> <id nullFlavor="NA" /> < code codeSystem="local" code="CMETHOD" displayName="METHOD" /> < statusCode code="completed" /> <effectiveTime value="703735439996" /> <value unit="" xsi:type="PQ" value="Bedside" /> < referenceRange> <observationRange> <text /> < /observationRange> </referenceRange> </observation> </ component> <component> <observation moodCode="EVN" classCode="OBS"> <templateId root="216.840.1.250829.22.4.2" /> <id nullFlavor="NA" /> <code codeSystem="local" code="GAP" displayName= "ANION GAP" /> <statusCode code="completed" /> <effectiveTime value="570747116044" /> <value unit="mmol/L" xsi:type="PQ" value="19" / > <referenceRange> <observationRange> <text>10- 20</text> </observationRange> </referenceRange> </ observation> </component> <component> <observation moodCode= "EVN" classCode="OBS"> <templateId root="216.840.1.905377.01.08.22.4.2 " /> <id nullFlavor="NA" /> <code codeSystem="local" code= "HMETHOD" displayName="METHOD" /> <statusCode code="completed" /> <effectiveTime value="533891572369" /> <value unit="" xsi:type="PQ " value="Bedside" /> <referenceRange> <observationRange> <text /> </observationRange> </referenceRange> </observation> </component> <component> <observation moodCode="EVN" classCode="OBS"> <templateId root= "16.840.1.645384.22.4.2" /> <id nullFlavor="NA" /> < code codeSystem="local" code="GLU" displayName="GLUCOSE" /> < statusCode code="completed" /> <effectiveTime value="593423065384" /> <value unit="mg/dL" xsi:type="PQ" value="75" /> < referenceRange> <observationRange> <text>70-99</text> </observationRange> </referenceRange> </observation> </component> <component> <observation moodCode="EVN" classCode= "OBS"> <templateId root="216.840.1.941467.10.20.22.4.2" /> < id nullFlavor="NA" /> <code codeSystem="local" code="BUN" displayName= "BLOOD UREA NITROGEN" /> <statusCode code="completed" /> < effectiveTime value="044911837120" /> <value unit="mg/dL" xsi:type="PQ " value="17" /> <referenceRange> <observationRange> <text>7-20</text> </observationRange> </referenceRange > </observation> </component> <component> <observation moodCode="EVN" classCode="OBS"> <templateId root= "05.07.840.1.320820.01.08.22.4.2" /> <id nullFlavor="NA" /> < code codeSystem="local" code="CREAT" displayName="CREATININE" /> < statusCode code="completed" /> <effectiveTime value="068600930200" /> <value unit="mg/dL" xsi:type="PQ" value="0.9" /> < referenceRange> <observationRange> <text>0.6-1.0</text> </observationRange> </referenceRange> </observation > </component> <component> <observation moodCode="EVN" classCode="OBS"> <templateId root="05.07.840.1.975358..22.4.2" /> <id nullFlavor="NA" /> <code codeSystem="local" code="HGBT" displayName="HEMOGLOBIN" /> <statusCode code="completed" /> < effectiveTime value="186626710756" /> <value unit="gm/dL" xsi:type="PQ " value="12.2" /> <referenceRange> <observationRange> <text>12.0-16.0</text> </observationRange> </ referenceRange> </observation> </component> <component> <observation moodCode="EVN" classCode="OBS"> <templateId root= "2.840.1.044945.10..22.4.2" /> <id nullFlavor="NA" /> < code codeSystem="local" code="HCTT" displayName="HEMATOCRIT" /> < statusCode code="completed" /> <effectiveTime value="132773360910" /> <value unit="%" xsi:type="PQ" value="36.0" /> < interpretationCode codeSystem="local" code="*" /> <referenceRange> <observationRange> <text>37.0-47.0</text> </ observationRange> </referenceRange> </observation> </ component> <component> <observation moodCode="EVN" classCode="OBS"> <templateId root="05.07.840.1.963424.10...4.2" /> <id nullFlavor="NA" /> <code codeSystem="local" code="NA" displayName= "SODIUM" /> <statusCode code="completed" /> <effectiveTime value="072378403572" /> <value unit="mmol/L" xsi:type="PQ" value="142" /> <referenceRange> <observationRange> <text> 135-148</text> </observationRange> </referenceRange> </observation> </component> <component> <observation moodCode= "EVN" classCode="OBS"> <templateId root="05.07.840.1.362435.10..22.4.2 " /> <id nullFlavor="NA" /> <code codeSystem="local" code="CL " displayName="CHLORIDE" /> <statusCode code="completed" /> < effectiveTime value="077359484949" /> <value unit="mmol/L" xsi:type="PQ " value="104" /> <referenceRange> <observationRange> <text>98-110</text> </observationRange> </ referenceRange> </observation> </component> <component> <observation moodCode="EVN" classCode="OBS"> <templateId root= "2.16.840.1.639190.10..22.4.2" /> <id nullFlavor="NA" /> < code codeSystem="local" code="CO2" displayName="CARBON DIOXIDE" /> < statusCode code="completed" /> <effectiveTime value="909875958748" /> <value unit="mmol/L" xsi:type="PQ" value="23" /> < referenceRange> <observationRange> <text>21-32</text> </observationRange> </referenceRange> </observation> </component> <component> <observation moodCode="EVN" classCode= "OBS"> <templateId root="2.16.840.1.204403.10.20.22.4.2" /> < id nullFlavor="NA" /> <code codeSystem="local" code="CAION" displayName ="CALCIUM IONIZED" /> <statusCode code="completed" /> < effectiveTime value="422982201352" /> <value unit="mg/dL" xsi:type="PQ " value="4.5" /> <referenceRange> <observationRange> <text>4.5-5.3</text> </observationRange> </ referenceRange> </observation> </component> </organizer> </entry > <entry> <organizer moodCode="EVN" classCode="BATTERY"> <templateId root="840.1.259200.10.22.4.1" /> <id nullFlavor="NA" /> <code codeSystem="local" code="CAION" displayName="CALCIUM IONIZED" /> < statusCode code="completed" /> <component> <observation moodCode= "EVN" classCode="OBS"> <templateId root="05.07.830.1.563860.22.4.2 " /> <id nullFlavor="NA" /> <code codeSystem="local" code= "CAION" displayName="CALCIUM IONIZED" /> <statusCode code="completed" / > <effectiveTime value="" /> <value unit="mg/dL" xsi:type="PQ" value="4.8" /> <referenceRange> < observationRange> <text>4.5-5.3</text> </ observationRange> </referenceRange> </observation> </ component> </organizer> </entry> <entry> <organizer moodCode="EVN" classCode="BATTERY"> <templateId root="840.1.877396.1022.4.1" /> <id nullFlavor="NA" /> <code codeSystem="local" code="METABC" displayName="METABOLIC PANEL, COMPREHN" /> <statusCode code="completed" /> <component> <observation moodCode="EVN" classCode="OBS"> < templateId root="840.1.821404.22.4.2" /> <id nullFlavor="NA " /> <code codeSystem="local" code="K" displayName="POTASSIUM" /> <statusCode code="completed" /> <effectiveTime value=" " /> <value unit="mmol/L" xsi:type="PQ" value="4.1" /> < referenceRange> <observationRange> <text>3.5-5.3</text> </observationRange> </referenceRange> </observation > </component> <component> <observation moodCode="EVN" classCode="OBS"> <templateId root="216.840.1.411638.10...4.2" /> <id nullFlavor="NA" /> <code codeSystem="local" code="eGFR" displayName="EST GFR (MDRD)" /> <statusCode code="completed" /> <effectiveTime value="" /> <value unit="mL/min" xsi:type ="PQ" value="> 60" /> <referenceRange> <observationRange > <text>> 59</text> </observationRange> </ referenceRange> </observation> </component> <component> <observation moodCode="EVN" classCode="OBS"> <templateId root= "16.840.1.908021.10..4.2" /> <id nullFlavor="NA" /> < code codeSystem="local" code="GAP" displayName="ANION GAP" /> < statusCode code="completed" /> <effectiveTime value="" /> <value unit="mmol/L" xsi:type="PQ" value="6" /> < referenceRange> <observationRange> <text>5-15</text> </observationRange> </referenceRange> </observation> </component> <component> <observation moodCode="EVN" classCode= "OBS"> <templateId root="16.840.1.109928.10..22.4.2" /> < id nullFlavor="NA" /> <code codeSystem="local" code="eCrCl" displayName ="EST CrCl (CG)" /> <statusCode code="completed" /> < effectiveTime value="" /> <value unit="mL/min" xsi:type="PQ " value="> 60" /> <referenceRange> <observationRange> <text>> 59</text> </observationRange> </ referenceRange> </observation> </component> <component> <observation moodCode="EVN" classCode="OBS"> <templateId root= "16.840.1.630980.10.22.4.2" /> <id nullFlavor="NA" /> < code codeSystem="local" code="GLU" displayName="GLUCOSE" /> < statusCode code="completed" /> <effectiveTime value="" /> <value unit="mg/dL" xsi:type="PQ" value="73" /> < referenceRange> <observationRange> <text>70-99</text> </observationRange> </referenceRange> </observation> </component> <component> <observation moodCode="EVN" classCode= "OBS"> <templateId root="[id number]" /> < id nullFlavor="NA" /> <code codeSystem="local" code="CA" displayName= "CALCIUM" /> <statusCode code="completed" /> <effectiveTime value="" /> <value unit="mg/dL" xsi:type="PQ" value="8.6" / > <referenceRange> <observationRange> <text>8.5 -10.1</text> </observationRange> </referenceRange> </ observation> </component> <component> <observation moodCode= "EVN" classCode="OBS"> <templateId root="05.07.840.1.293422.01.08.22.4.2 " /> <id nullFlavor="NA" /> <code codeSystem="local" code="BUN " displayName="BLOOD UREA NITROGEN" /> <statusCode code="completed" /> <effectiveTime value="" /> <value unit="mg/dL" xsi:type="PQ" value="9" /> <referenceRange> < observationRange> <text>7-20</text> </observationRange> </referenceRange> </observation> </component> < component> <observation moodCode="EVN" classCode="OBS"> < templateId root="2.16.840.1.061362.01.08.22.4.2" /> <id nullFlavor="NA " /> <code codeSystem="local" code="CREAT" displayName="CREATININE" /> <statusCode code="completed" /> <effectiveTime value= "" /> <value unit="mg/dL" xsi:type="PQ" value="0.9" /> <referenceRange> <observationRange> <text>0.6-1.0< /text> </observationRange> </referenceRange> </ observation> </component> <component> <observation moodCode= "EVN" classCode="OBS"> <templateId root="2.16.840.1.795820....4.2 " /> <id nullFlavor="NA" /> <code codeSystem="local" code="NA " displayName="SODIUM" /> <statusCode code="completed" /> < effectiveTime value="" /> <value unit="mmol/L" xsi:type="PQ " value="141" /> <referenceRange> <observationRange> <text>135-148</text> </observationRange> </ referenceRange> </observation> </component> <component> <observation moodCode="EVN" classCode="OBS"> <templateId root= "216.840.1.816527.10..22.4.2" /> <id nullFlavor="NA" /> < code codeSystem="local" code="CL" displayName="CHLORIDE" /> < statusCode code="completed" /> <effectiveTime value="" /> <value unit="mmol/L" xsi:type="PQ" value="107" /> < referenceRange> <observationRange> <text>98-110</text> </observationRange> </referenceRange> </observation> </component> <component> <observation moodCode="EVN" classCode ="OBS"> <templateId root="16.840.1.299853...4.2" /> < id nullFlavor="NA" /> <code codeSystem="local" code="AST" displayName= "AST/SGOT" /> <statusCode code="completed" /> <effectiveTime value="" /> <value unit="Units/L" xsi:type="PQ" value="10" /> <referenceRange> <observationRange> <text>10 -37</text> </observationRange> </referenceRange> </ observation> </component> <component> <observation moodCode= "EVN" classCode="OBS"> <templateId root="05.07.840.1.164426...22.4.2 " /> <id nullFlavor="NA" /> <code codeSystem="local" code="ALT " displayName="ALT/SGPT" /> <statusCode code="completed" /> < effectiveTime value="" /> <value unit="Units/L" xsi:type= "PQ" value="16" /> <referenceRange> <observationRange> <text>< 66</text> </observationRange> </ referenceRange> </observation> </component> <component> <observation moodCode="EVN" classCode="OBS"> <templateId root= "16.840.1.410931.10.4.2" /> <id nullFlavor="NA" /> < code codeSystem="local" code="CO2" displayName="CARBON DIOXIDE" /> < statusCode code="completed" /> <effectiveTime value="" /> <value unit="mmol/L" xsi:type="PQ" value="28" /> < referenceRange> <observationRange> <text>21-32</text> </observationRange> </referenceRange> </observation> </component> <component> <observation moodCode="EVN" classCode= "OBS"> <templateId root="05.07.840.1.275622.01.08.224.2" /> < id nullFlavor="NA" /> <code codeSystem="local" code="TP" displayName= "TOTAL PROTEIN" /> <statusCode code="completed" /> < effectiveTime value="" /> <value unit="gm/dL" xsi:type="PQ " value="6.4" /> <referenceRange> <observationRange> <text>6.4-8.2</text> </observationRange> </ referenceRange> </observation> </component> <component> <observation moodCode="EVN" classCode="OBS"> <templateId root= "05.07.840.1.990479.01.08.22.4.2" /> <id nullFlavor="NA" /> < code codeSystem="local" code="ALB" displayName="ALBUMIN" /> < statusCode code="completed" /> <effectiveTime value="" /> <value unit="gm/dL" xsi:type="PQ" value="3.3" /> < interpretationCode codeSystem="local" code="*" /> <referenceRange> <observationRange> <text>3.4-5.0</text> </ observationRange> </referenceRange> </observation> </ component> <component> <observation moodCode="EVN" classCode="OBS"> <templateId root="216.840.1.257412.10.4.2" /> <id nullFlavor="NA" /> <code codeSystem="local" code="BILTOT" displayName= "BILI TOTAL" /> <statusCode code="completed" /> < effectiveTime value="" /> <value unit="mg/dL" xsi:type="PQ " value="1.6" /> <interpretationCode codeSystem="local" code="*" /> <referenceRange> <observationRange> <text>0.0-1.0 </text> </observationRange> </referenceRange> </ observation> </component> <component> <observation moodCode= "EVN" classCode="OBS"> <templateId root="16.840.1.254753.01.08.22.4.2 " /> <id nullFlavor="NA" /> <code codeSystem="local" code= "ALKP" displayName="ALKALINE PHOSPHATASE TOTAL" /> <statusCode code= "completed" /> <effectiveTime value="" /> <value unit="IU/L" xsi:type="PQ" value="56" /> <referenceRange> < observationRange> <text>45-117</text> </observationRange > </referenceRange> </observation> </component> </ organizer> </entry> <entry> <organizer moodCode="EVN" classCode="BATTERY"> <templateId root="216.840.1.985993.01.08.22.4.1" /> <id nullFlavor= "NA" /> <code codeSystem="local" code="PHOS" displayName="PHOSPHORUS" /> <statusCode code="completed" /> <component> <observation moodCode="EVN" classCode="OBS"> <templateId root= "16.840.1.055458.10...4.2" /> <id nullFlavor="NA" /> < code codeSystem="local" code="PHOS" displayName="PHOSPHORUS" /> < statusCode code="completed" /> <effectiveTime value="" /> <value unit="mg/dL" xsi:type="PQ" value="3.5" /> < referenceRange> <observationRange> <text>2.5-4.9</text> </observationRange> </referenceRange> </observation > </component> </organizer> </entry> <entry> <organizer moodCode= "EVN" classCode="BATTERY"> <templateId root="16.840.1.758123...4.1 " /> <id nullFlavor="NA" /> <code codeSystem="local" code="MAG" displayName="MAGNESIUM" /> <statusCode code="completed" /> <component > <observation moodCode="EVN" classCode="OBS"> <templateId root= "16.840.1.234710.10...4.2" /> <id nullFlavor="NA" /> < code codeSystem="local" code="MAG" displayName="MAGNESIUM" /> < statusCode code="completed" /> <effectiveTime value="" /> <value unit="mg/dL" xsi:type="PQ" value="2.1" /> < referenceRange> <observationRange> <text>1.8-2.4</text> </observationRange> </referenceRange> </observation > </component> </organizer> </entry> <entry> <organizer moodCode= "EVN" classCode="BATTERY"> <templateId root="216.840.1.211007.10..22.4.1 " /> <id nullFlavor="NA" /> <code codeSystem="local" code="4226043" displayName="URINE (CTS IF INDICATED)" /> <statusCode code="completed" /> <component> <observation moodCode="EVN" classCode="OBS"> < templateId root="2.840.1.969635.10...4.2" /> <id nullFlavor="NA " /> <code codeSystem="local" code="GLUCOSE " displayName="GLUCOSE " / > <statusCode code="completed" /> <effectiveTime value= "859929475734" /> <value unit="" xsi:type="PQ" value="norm" /> <referenceRange> <observationRange> <text>NORMAL: NEGATIVE</text> </observationRange> </referenceRange> </observation> </component> <component> <observation moodCode ="EVN" classCode="OBS"> <templateId root= "05.07.840.1.168048.10...4.2" /> <id nullFlavor="NA" /> < code codeSystem="local" code="WBC " displayName="WBC " /> <statusCode code="completed" /> <effectiveTime value="434052285621" /> < value unit="" xsi:type="PQ" value="5-7" /> <referenceRange> <observationRange> <text>NRG</text> </observationRange> </referenceRange> </observation> </component> < component> <observation moodCode="EVN" classCode="OBS"> < templateId root="16.840.1.942902.10..22.4.2" /> <id nullFlavor="NA " /> <code codeSystem="local" code="URINE(CTSIFINDICATED)" displayName= "URINE(CTSIFINDICATED)" /> <statusCode code="completed" /> < effectiveTime value="625124581859" /> <value unit="" xsi:type="PQ" value="" /> <referenceRange> <observationRange> <text>NRG</text> </observationRange> </referenceRange> </observation> </component> <component> <observation moodCode="EVN" classCode="OBS"> <templateId root= "216.840.1.935855.10..4.2" /> <id nullFlavor="NA" /> < code codeSystem="local" code="URINECOLLECT" displayName=" URINE COLLECT" /> <statusCode code="completed" /> <effectiveTime value= "522659709562" /> <value unit="" xsi:type="PQ" value="UNKNOWN" /> <referenceRange> <observationRange> <text>NRG</text > </observationRange> </referenceRange> </observation > </component> <component> <observation moodCode="EVN" classCode="OBS"> <templateId root="216.840.1.914922.10..4.2" /> <id nullFlavor="NA" /> <code codeSystem="local" code="COLOR" displayName=" COLOR" /> <statusCode code="completed" /> < effectiveTime value="" /> <value unit="" xsi:type="PQ" value="STRAW" /> <referenceRange> <observationRange> <text>NORMAL:YELLOW</text> </observationRange> </ referenceRange> </observation> </component> <component> <observation moodCode="EVN" classCode="OBS"> <templateId root= "16.840.1.559398.10.22.4.2" /> <id nullFlavor="NA" /> < code codeSystem="local" code="CLARITY" displayName=" CLARITY" /> < statusCode code="completed" /> <effectiveTime value="" /> <value unit="" xsi:type="PQ" value="CLOUDY" /> <referenceRange > <observationRange> <text>NORMAL:CLEAR</text> </observationRange> </referenceRange> </observation> </ component> <component> <observation moodCode="EVN" classCode="OBS"> <templateId root="16.840.1.841981...4.2" /> <id nullFlavor="NA" /> <code codeSystem="local" code="SPGRAVITY" displayName=" SP GRAVITY" /> <statusCode code="completed" /> < effectiveTime value="" /> <value unit="" xsi:type="PQ" value="1.010" /> <referenceRange> <observationRange> <text>NRG</text> </observationRange> </referenceRange > </observation> </component> <component> <observation moodCode="EVN" classCode="OBS"> <templateId root= "05.07.840.1.261322.1022.4.2" /> <id nullFlavor="NA" /> < code codeSystem="local" code="PH" displayName=" PH" /> <statusCode code ="completed" /> <effectiveTime value="" /> <value unit="" xsi:type="PQ" value="8" /> <referenceRange> < observationRange> <text>NORMAL:5 - 8</text> </ observationRange> </referenceRange> </observation> </ component> <component> <observation moodCode="EVN" classCode="OBS"> <templateId root="16.840.1.565195.10.4.2" /> <id nullFlavor="NA" /> <code codeSystem="local" code="LEUKOESTERAS" displayName=" LEUKOESTERAS" /> <statusCode code="completed" /> <effectiveTime value="" /> <value unit="" xsi:type="PQ" value="25 Vineet/uL" /> <referenceRange> <observationRange> <text>NORMAL:NEGATIVE</text> </observationRange> </referenceRange> </observation> </component> <component> <observation moodCode="EVN" classCode="OBS"> <templateId root= "05.07.840.1.058611.10.4.2" /> <id nullFlavor="NA" /> < code codeSystem="local" code="NITRITE" displayName=" NITRITE" /> < statusCode code="completed" /> <effectiveTime value="" /> <value unit="" xsi:type="PQ" value="neg" /> <referenceRange> <observationRange> <text>NORMAL:NEGATIVE</text> </observationRange> </referenceRange> </observation> </ component> <component> <observation moodCode="EVN" classCode="OBS"> <templateId root="05.07.840.1.749718.10.4.2" /> <id nullFlavor="NA" /> <code codeSystem="local" code="PROTEIN" displayName= " PROTEIN" /> <statusCode code="completed" /> <effectiveTime value="" /> <value unit="" xsi:type="PQ" value="neg" /> <referenceRange> <observationRange> <text>NORMAL: NEGATIVE</text> </observationRange> </referenceRange> </observation> </component> <component> <observation moodCode ="EVN" classCode="OBS"> <templateId root= "16.840.1.855850.10.4.2" /> <id nullFlavor="NA" /> < code codeSystem="local" code="KETONES" displayName=" KETONES" /> < statusCode code="completed" /> <effectiveTime value="" /> <value unit="" xsi:type="PQ" value="neg" /> <referenceRange> <observationRange> <text>NORMAL:NEGATIVE</text> </observationRange> </referenceRange> </observation> </ component> <component> <observation moodCode="EVN" classCode="OBS"> <templateId root="05.07.840.1.274923.01.08.22.4.2" /> <id nullFlavor="NA" /> <code codeSystem="local" code="UROBILINOGEN" displayName=" UROBILINOGEN" /> <statusCode code="completed" /> <effectiveTime value="529068262040" /> <value unit="" xsi:type="PQ" value="norm" /> <referenceRange> <observationRange> <text>NORMAL:NEGATIVE</text> </observationRange> </ referenceRange> </observation> </component> <component> <observation moodCode="EVN" classCode="OBS"> <templateId root= "05.07.840.1.491300.01.08.22.4.2" /> <id nullFlavor="NA" /> < code codeSystem="local" code="BILIRUBIN" displayName=" BILIRUBIN" /> < statusCode code="completed" /> <effectiveTime value="" /> <value unit="" xsi:type="PQ" value="neg" /> <referenceRange> <observationRange> <text>NORMAL:NEGATIVE</text> </observationRange> </referenceRange> </observation> </ component> <component> <observation moodCode="EVN" classCode="OBS"> <templateId root="05.07.840.1.727024.10.22.4.2" /> <id nullFlavor="NA" /> <code codeSystem="local" code="BLOOD" displayName=" BLOOD" /> <statusCode code="completed" /> <effectiveTime value ="" /> <value unit="" xsi:type="PQ" value="neg" /> <referenceRange> <observationRange> <text>NORMAL: NEGATIVE</text> </observationRange> </referenceRange> </observation> </component> <component> <observation moodCode ="EVN" classCode="OBS"> <templateId root= "05.07.840.1.452514.1022.4.2" /> <id nullFlavor="NA" /> < code codeSystem="local" code="MICROSCOPIC" displayName=" MICROSCOPIC" /> <statusCode code="completed" /> <effectiveTime value="" /> <value unit="" xsi:type="PQ" value="SEE BELOW" /> < referenceRange> <observationRange> <text>NRG</text> </observationRange> </referenceRange> </observation> </component> <component> <observation moodCode="EVN" classCode= "OBS"> <templateId root="05.07.840.1.325955.1022.4.2" /> < id nullFlavor="NA" /> <code codeSystem="local" code="EPITHELIAL" displayName=" EPITHELIAL" /> <statusCode code="completed" /> < effectiveTime value="" /> <value unit="" xsi:type="PQ" value=">15 SQ EPI" /> <referenceRange> <observationRange > <text>NRG</text> </observationRange> </ referenceRange> </observation> </component> <component> <observation moodCode="EVN" classCode="OBS"> <templateId root= "05.07.840.1.939745.01.08.22.4.2" /> <id nullFlavor="NA" /> < code codeSystem="local" code="BACTERIA" displayName=" BACTERIA" /> < statusCode code="completed" /> <effectiveTime value="181649609533" /> <value unit="" xsi:type="PQ" value="MODERA" /> <referenceRange > <observationRange> <text>NRG</text> </ observationRange> </referenceRange> </observation> </ component> <component> <observation moodCode="EVN" classCode="OBS"> <templateId root="840.1.416478.01.08.22.4.2" /> <id nullFlavor="NA" /> <code codeSystem="local" code="CULTURE" displayName= " CULTURE" /> <statusCode code="completed" /> <effectiveTime value="589632101436" /> <value unit="" xsi:type="PQ" value="NOT INDICATED" /> <referenceRange> <observationRange> <text>NRG</text> </observationRange> </referenceRange> </observation> </component> <component> <observation moodCode="EVN" classCode="OBS"> <templateId root= "840.1.999376.22.4.2" /> <id nullFlavor="NA" /> < code codeSystem="local" code="CRYSTALS" displayName=" CRYSTALS" /> < statusCode code="completed" /> <effectiveTime value="984680739197" /> <value unit="" xsi:type="PQ" value="SEE BELOW" /> < referenceRange> <observationRange> <text>NRG</text> </observationRange> </referenceRange> </observation> </component> <component> <observation moodCode="EVN" classCode= "OBS"> <templateId root="840.1.063187.1022.4.2" /> < id nullFlavor="NA" /> <code codeSystem="local" code="AMORPHOUS" displayName=" AMORPHOUS" /> <statusCode code="completed" /> < effectiveTime value="655165804790" /> <value unit="" xsi:type="PQ" value="FEW" /> <referenceRange> <observationRange> <text>NORMAL: NONE SEEN</text> </observationRange> </ referenceRange> </observation> </component> </organizer> </entry > <entry> <organizer moodCode="EVN" classCode="BATTERY"> <templateId root="840.1.648600.22.4.1" /> <id nullFlavor="NA" /> <code codeSystem="local" code="NYE934" displayName="[place]" /> <statusCode code="completed" /> <component> <observation moodCode="EVN" classCode="OBS"> <templateId root="05.07.840.1.516209.1022.4.2" /> <id nullFlavor="NA" /> <code codeSystem="local" code="Kcc8967 " displayName="Clue Cells" /> <statusCode code="completed" /> <effectiveTime value="655874394845" /> <value unit="" xsi:type="PQ" value="Not Observed" /> <referenceRange> <observationRange> <text>Not Observed</text> </observationRange> </referenceRange> </observation> </component> <component> <observation moodCode="EVN" classCode="OBS"> <templateId root= "216.840.1.652444.10..4.2" /> <id nullFlavor="NA" /> < code codeSystem="local" code="Noh0903" displayName="Trichomonas" /> < statusCode code="completed" /> <effectiveTime value="498674000483" /> <value unit="" xsi:type="PQ" value="Not Observed" /> < referenceRange> <observationRange> <text>Not Observed</ text> </observationRange> </referenceRange> </ observation> </component> <component> <observation moodCode= "EVN" classCode="OBS"> <templateId root="2.840.1.754014.01.08.22.4.2 " /> <id nullFlavor="NA" /> <code codeSystem="local" code= "Imf0879" displayName="Yeast" /> <statusCode code="completed" /> <effectiveTime value="408640195906" /> <value unit="" xsi:type="PQ " value="Not Observed" /> <referenceRange> <observationRange > <text>Not Observed</text> </observationRange> </referenceRange> </observation> </component> </organizer> </ entry> <entry> <organizer moodCode="EVN" classCode="BATTERY"> < templateId root="216.840.1.433568.10..4.1" /> <id nullFlavor="NA" /> <code codeSystem="local" code="299041" displayName="Chlamydia/GC Amplification" /> <statusCode code="completed" /> <component> < observation moodCode="EVN" classCode="OBS"> <templateId root= "840.1.291215.10.22.4.2" /> <id nullFlavor="NA" /> < code codeSystem="local" code="716076" displayName="CHLAMYDIA TRACHOMATIS, MELISSA" / > <statusCode code="completed" /> <effectiveTime value= "352130259063" /> <value unit="" xsi:type="PQ" value="NEGATIVE" /> <referenceRange> <observationRange> <text>NEGATIVE </text> </observationRange> </referenceRange> </ observation> </component> <component> <observation moodCode= "EVN" classCode="OBS"> <templateId root="840.1.930521.01.08.22.4.2 " /> <id nullFlavor="NA" /> <code codeSystem="local" code= "784964" displayName="NEISSERIA GONORRHOEAE, MELISSA" /> <statusCode code= "completed" /> <effectiveTime value="357272208876" /> <value unit="" xsi:type="PQ" value="NEGATIVE" /> <referenceRange> < observationRange> <text>NEGATIVE</text> </ observationRange> </referenceRange> </observation> </ component> </organizer> </entry> <entry> <organizer moodCode="EVN" classCode="BATTERY"> <templateId root="840.1.667882.1022.4.1" /> <id nullFlavor="NA" /> <code codeSystem="local" code="523663" displayName="Chlamydia/GC Amplification" /> <statusCode code="completed" / > <component> <observation moodCode="EVN" classCode="OBS"> <templateId root="840.1.835816.1022.4.2" /> <id nullFlavor="NA " /> <code codeSystem="local" code="664470" displayName="Chlamydia trachomatis, MELISSA" /> <statusCode code="completed" /> < effectiveTime value="120217770680" /> <value unit="" xsi:type="PQ" value="Negative" /> <referenceRange> <observationRange> <text>Negative</text> </observationRange> </ referenceRange> </observation> </component> <component> <observation moodCode="EVN" classCode="OBS"> <templateId root= "05.07.840.1.919926.01.08.22.4.2" /> <id nullFlavor="NA" /> < code codeSystem="local" code="491598" displayName="Neisseria gonorrhoeae, MELISSA" / > <statusCode code="completed" /> <effectiveTime value= "529545153745" /> <value unit="" xsi:type="PQ" value="Negative" /> <referenceRange> <observationRange> <text>Negative </text> </observationRange> </referenceRange> </ observation> </component> </organizer> </entry> <entry> <organizer moodCode="EVN" classCode="BATTERY"> <templateId root= "05.07.840.1.829105...4.1" /> <id nullFlavor="NA" /> <code codeSystem="local" code="825844" displayName="Ova + Parasite Exam" /> < statusCode code="completed" /> <component> <observation moodCode= "EVN" classCode="OBS"> <templateId root="05.07.840.1.746082.01.08.22.4.2 " /> <id nullFlavor="NA" /> <code codeSystem="local" code= "749503" displayName="OVA + PARASITE EXAM" /> <statusCode code= "completed" /> <effectiveTime value="" /> <value unit="" xsi:type="PQ" value="FINAL REPORT" /> <referenceRange> <observationRange> <text /> </observationRange> </referenceRange> </observation> </component> <component > <observation moodCode="EVN" classCode="OBS"> <templateId root= "216.840.1.678107.01.08.22.4.2" /> <id nullFlavor="NA" /> < code codeSystem="local" code="250452" displayName="RESULT 1" /> < statusCode code="completed" /> <effectiveTime value="" /> <value unit="" xsi:type="PQ" value="NO OVA, CYSTS, OR PARASITES SEEN." /> <referenceRange> <observationRange> <text / > </observationRange> </referenceRange> </observation > </component> </organizer> </entry> <entry> <organizer moodCode= "EVN" classCode="BATTERY"> <templateId root="216.840.1.400190.01.08.22.4.1 " /> <id nullFlavor="NA" /> <code codeSystem="local" code="41968-7" displayName="Complete urinalysis with reflex to culture" /> <statusCode code="completed" /> <component> <observation moodCode="EVN" classCode="OBS"> <templateId root="216.840.1.423624.10...4.2" /> <id nullFlavor="NA" /> <code codeSystem="local" code="5778-6" displayName="Urine color determination" /> <statusCode code="completed " /> <effectiveTime value="650732340723" /> <value unit="" xsi :type="PQ" value="YELLOW" /> <referenceRange> < observationRange> <text>NRG</text> </observationRange> </referenceRange> </observation> </component> < component> <observation moodCode="EVN" classCode="OBS"> < templateId root="216.840.1.869275.10.20.22.4.2" /> <id nullFlavor="NA " /> <code codeSystem="local" code="88118-5" displayName="Urine clarity determination" /> <statusCode code="completed" /> < effectiveTime value="732537722348" /> <value unit="" xsi:type="PQ" value="CLEAR" /> <referenceRange> <observationRange> <text>NRG</text> </observationRange> </referenceRange > </observation> </component> <component> <observation moodCode="EVN" classCode="OBS"> <templateId root= "16.840.1.125724.10.22.4.2" /> <id nullFlavor="NA" /> < code codeSystem="local" code="5803-2" displayName="Urine pH measurement by test strip" /> <statusCode code="completed" /> <effectiveTime value ="381368740070" /> <value unit="" xsi:type="PQ" value="6" /> < referenceRange> <observationRange> <text>5-9</text> </observationRange> </referenceRange> </observation> </component> <component> <observation moodCode="EVN" classCode= "OBS"> <templateId root="16.840.1.381067.10.20.22.4.2" /> < id nullFlavor="NA" /> <code codeSystem="local" code="5811-5" displayName="Specific gravity of urine by test strip" /> <statusCode code="completed" /> <effectiveTime value="" /> < value unit="" xsi:type="PQ" value="1.020" /> <referenceRange> <observationRange> <text>1.016-1.022</text> </ observationRange> </referenceRange> </observation> </ component> <component> <observation moodCode="EVN" classCode="OBS"> <templateId root="05.07.840.1.608008.01.08.22.4.2" /> <id nullFlavor="NA" /> <code codeSystem="local" code="17476-1" displayName= "Urine protein assay by test strip, semi-quantitative" /> <statusCode code="completed" /> <effectiveTime value="" /> < value unit="" xsi:type="PQ" value="1+" /> <interpretationCode codeSystem="local" code="*" /> <referenceRange> < observationRange> <text>NEGATIVE</text> </ observationRange> </referenceRange> </observation> </ component> <component> <observation moodCode="EVN" classCode="OBS"> <templateId root="05.07.840.1.102157.01.08.22.4.2" /> <id nullFlavor="NA" /> <code codeSystem="local" code="24087-3" displayName= "Urine glucose detection by automated test strip" /> <statusCode code= "completed" /> <effectiveTime value="" /> <value unit="" xsi:type="PQ" value="NEGATIVE" /> <referenceRange> < observationRange> <text>NEGATIVE</text> </ observationRange> </referenceRange> </observation> </ component> <component> <observation moodCode="EVN" classCode="OBS"> <templateId root="05.07.840.1.541309.01.08.22.4.2" /> <id nullFlavor="NA" /> <code codeSystem="local" code="84976-6" displayName= "Erythrocytes detection in urine sediment by light microscopy" /> < statusCode code="completed" /> <effectiveTime value="" /> <value unit="" xsi:type="PQ" value="3+" /> < interpretationCode codeSystem="local" code="*" /> <referenceRange> <observationRange> <text>NEGATIVE</text> </ observationRange> </referenceRange> </observation> </ component> <component> <observation moodCode="EVN" classCode="OBS"> <templateId root="216.840.1.195453.10..4.2" /> <id nullFlavor="NA" /> <code codeSystem="local" code="62894-6" displayName= "Urine ketones detection by automated test strip" /> <statusCode code= "completed" /> <effectiveTime value="" /> <value unit="" xsi:type="PQ" value="2+" /> <interpretationCode codeSystem= "local" code="*" /> <referenceRange> <observationRange> <text>NEGATIVE</text> </observationRange> </ referenceRange> </observation> </component> <component> <observation moodCode="EVN" classCode="OBS"> <templateId root= "16.840.1.097398.10..4.2" /> <id nullFlavor="NA" /> < code codeSystem="local" code="5802-4" displayName="Urine nitrite detection by test strip" /> <statusCode code="completed" /> <effectiveTime value="" /> <value unit="" xsi:type="PQ" value="NEGATIVE" / > <referenceRange> <observationRange> <text> NEGATIVE</text> </observationRange> </referenceRange> </observation> </component> <component> <observation moodCode ="EVN" classCode="OBS"> <templateId root= "216.840.1.731193.10.22.4.2" /> <id nullFlavor="NA" /> < code codeSystem="local" code="5770-3" displayName="Urine total bilirubin detection by test strip" /> <statusCode code="completed" /> < effectiveTime value="796334520941" /> <value unit="" xsi:type="PQ" value="NEGATIVE" /> <referenceRange> <observationRange> <text>NEGATIVE</text> </observationRange> </ referenceRange> </observation> </component> <component> <observation moodCode="EVN" classCode="OBS"> <templateId root= "216.840.1.550256.10.4.2" /> <id nullFlavor="NA" /> < code codeSystem="local" code="72528-7" displayName="Urine urobilinogen measurement by automated test strip (mass/volume)" /> <statusCode code= "completed" /> <effectiveTime value="982113455122" /> <value unit="" xsi:type="PQ" value="NORMAL" /> <referenceRange> < observationRange> <text>NORMAL</text> </observationRange > </referenceRange> </observation> </component> < component> <observation moodCode="EVN" classCode="OBS"> < templateId root="16.840.1.701512.10..4.2" /> <id nullFlavor="NA " /> <code codeSystem="local" code="5799-2" displayName="Urine leukocyte esterase detection by dipstick" /> <statusCode code= "completed" /> <effectiveTime value="439937892745" /> <value unit="" xsi:type="PQ" value="1+" /> <interpretationCode codeSystem= "local" code="*" /> <referenceRange> <observationRange> <text>NEGATIVE</text> </observationRange> </ referenceRange> </observation> </component> <component> <observation moodCode="EVN" classCode="OBS"> <templateId root= "216.840.1.981648.10..22.4.2" /> <id nullFlavor="NA" /> < code codeSystem="local" code="37048-9" displayName="Automated urine sediment erythrocyte count by microscopy (number/high power field)" /> < statusCode code="completed" /> <effectiveTime value="" /> <value unit="[HPF]" xsi:type="PQ" value="" /> < interpretationCode codeSystem="local" code="*" /> <referenceRange> <observationRange> <text>NRG</text> </ observationRange> </referenceRange> </observation> </ component> <component> <observation moodCode="EVN" classCode="OBS"> <templateId root="216.840.1.421203.10..22.4.2" /> <id nullFlavor="NA" /> <code codeSystem="local" code="5821-4" displayName= "Automated urine sediment leukocyte count by microscopy (number/high power field )" /> <statusCode code="completed" /> <effectiveTime value= "" /> <value unit="[HPF]" xsi:type="PQ" value="" /> <referenceRange> <observationRange> <text>NRG</text> </observationRange> </referenceRange> </observation > </component> <component> <observation moodCode="EVN" classCode="OBS"> <templateId root="216.840.1.499549.10..22.4.2" /> <id nullFlavor="NA" /> <code codeSystem="local" code="50592-0 " displayName="Bacteria detection in urine sediment by light microscopy" /> <statusCode code="completed" /> <effectiveTime value= "" /> <value unit="" xsi:type="PQ" value="FEW" /> <interpretationCode codeSystem="local" code="*" /> <referenceRange> <observationRange> <text>NRG</text> </ observationRange> </referenceRange> </observation> </ component> <component> <observation moodCode="EVN" classCode="OBS"> <templateId root="05.07.840.1.934090.10..4.2" /> <id nullFlavor="NA" /> <code codeSystem="local" code="61995-6" displayName= "Squamous epithelial cells detection in urine sediment by light microscopy" /> <statusCode code="completed" /> <effectiveTime value= "" /> <value unit="" xsi:type="PQ" value="25-50" /> <interpretationCode codeSystem="local" code="*" /> <referenceRange> <observationRange> <text>NRG</text> </ observationRange> </referenceRange> </observation> </ component> <component> <observation moodCode="EVN" classCode="OBS"> <templateId root="05.07.840.1.992744.10...4.2" /> <id nullFlavor="NA" /> <code codeSystem="local" code="83474-0" displayName= "Crystals detection in urine sediment by light microscopy" /> < statusCode code="completed" /> <effectiveTime value="" /> <value unit="" xsi:type="PQ" value="NONE" /> <referenceRange> <observationRange> <text>NRG</text> </ observationRange> </referenceRange> </observation> </ component> <component> <observation moodCode="EVN" classCode="OBS"> <templateId root="216.840.1.915225.10.20.22.4.2" /> <id nullFlavor="NA" /> <code codeSystem="local" code="69655-5" displayName= "Casts detection in urine sediment by light microscopy" /> <statusCode code="completed" /> <effectiveTime value="" /> < value unit="" xsi:type="PQ" value="NONE" /> <referenceRange> <observationRange> <text>NRG</text> </observationRange > </referenceRange> </observation> </component> < component> <observation moodCode="EVN" classCode="OBS"> < templateId root="16.840.1.363527.10..4.2" /> <id nullFlavor="NA " /> <code codeSystem="local" code="8247-9" displayName="Mucus detection in urine sediment by light microscopy" /> <statusCode code= "completed" /> <effectiveTime value="" /> <value unit="" xsi:type="PQ" value="MODERATE" /> <interpretationCode codeSystem="local" code="*" /> <referenceRange> < observationRange> <text>NRG</text> </observationRange> </referenceRange> </observation> </component> < component> <observation moodCode="EVN" classCode="OBS"> < templateId root="216.840.1.200264.10..22.4.2" /> <id nullFlavor="NA " /> <code codeSystem="local" code="87731-4" displayName="Complete urinalysis with reflex to culture" /> <statusCode code="completed" /> <effectiveTime value="608789566263" /> <value unit="" xsi:type ="PQ" value="NO" /> <referenceRange> <observationRange> <text>NRG</text> </observationRange> </ referenceRange> </observation> </component> </organizer> </entry > <entry> <organizer moodCode="EVN" classCode="BATTERY"> <templateId root="216.840.1.068457.10.20.22.4.1" /> <id nullFlavor="NA" /> <code codeSystem="local" code="99892-7" displayName="Complete blood count (CBC) with automated white blood cell (WBC) differential" /> <statusCode code= "completed" /> <component> <observation moodCode="EVN" classCode= "OBS"> <templateId root="216.840.1.659300.10.20.22.4.2" /> < id nullFlavor="NA" /> <code codeSystem="local" code="6690-2" displayName="Blood leukocytes automated count (number/volume)" /> < statusCode code="completed" /> <effectiveTime value="655891656076" /> <value unit="10*3/uL" xsi:type="PQ" value="10.4" /> < referenceRange> <observationRange> <text>4.3-11.0</text > </observationRange> </referenceRange> </observation > </component> <component> <observation moodCode="EVN" classCode="OBS"> <templateId root="216.840.1.630160.10.20.22.4.2" /> <id nullFlavor="NA" /> <code codeSystem="local" code="789-8" displayName="Blood erythrocytes automated count (number/volume)" /> < statusCode code="completed" /> <effectiveTime value="800697345934" /> <value unit="10*6/uL" xsi:type="PQ" value="4.34" /> < interpretationCode codeSystem="local" code="" /> <referenceRange> <observationRange> <text>4.35-5.85</text> </ observationRange> </referenceRange> </observation> </ component> <component> <observation moodCode="EVN" classCode="OBS"> <templateId root="2.16.840.1.116431.10.20.22.4.2" /> <id nullFlavor="NA" /> <code codeSystem="local" code="35401-5" displayName= "Venous blood hemoglobin measurement (mass/volume)" /> <statusCode code ="completed" /> <effectiveTime value="196433395674" /> <value unit="g/dL" xsi:type="PQ" value="12.9" /> <referenceRange> < observationRange> <text>11.5-16.0</text> </ observationRange> </referenceRange> </observation> </ component> <component> <observation moodCode="EVN" classCode="OBS"> <templateId root="2.16.840.1.216420.10.20.22.4.2" /> <id nullFlavor="NA" /> <code codeSystem="local" code="73605-5" displayName= "Blood hematocrit (volume fraction)" /> <statusCode code="completed" / > <effectiveTime value="686261322785" /> <value unit="%" xsi:type="PQ" value="38" /> <referenceRange> < observationRange> <text>35-52</text> </observationRange > </referenceRange> </observation> </component> < component> <observation moodCode="EVN" classCode="OBS"> < templateId root="2.16.840.1.018805.10..22.4.2" /> <id nullFlavor="NA " /> <code codeSystem="local" code="787-2" displayName="Automated erythrocyte mean corpuscular volume" /> <statusCode code="completed" / > <effectiveTime value="379995047975" /> <value unit="[foz_us] " xsi:type="PQ" value="86" /> <referenceRange> < observationRange> <text>80-99</text> </observationRange > </referenceRange> </observation> </component> < component> <observation moodCode="EVN" classCode="OBS"> < templateId root="2.16.840.1.475049.10..4.2" /> <id nullFlavor="NA " /> <code codeSystem="local" code="785-6" displayName="Automated erythrocyte mean corpuscular hemoglobin (mass per erythrocyte)" /> < statusCode code="completed" /> <effectiveTime value="333104157629" /> <value unit="pg" xsi:type="PQ" value="30" /> <referenceRange> <observationRange> <text>25-34</text> </ observationRange> </referenceRange> </observation> </ component> <component> <observation moodCode="EVN" classCode="OBS"> <templateId root="2.16.840.1.208418.10..22.4.2" /> <id nullFlavor="NA" /> <code codeSystem="local" code="786-4" displayName= "Automated erythrocyte mean corpuscular hemoglobin concentration measurement ( mass/volume)" /> <statusCode code="completed" /> < effectiveTime value="545100207883" /> <value unit="g/dL" xsi:type="PQ" value="34" /> <referenceRange> <observationRange> <text>32-36</text> </observationRange> </referenceRange > </observation> </component> <component> <observation moodCode="EVN" classCode="OBS"> <templateId root= "2.16.840.1.809692.10..22.4.2" /> <id nullFlavor="NA" /> < code codeSystem="local" code="788-0" displayName="Automated erythrocyte distribution width ratio" /> <statusCode code="completed" /> < effectiveTime value="916369129840" /> <value unit="%" xsi:type="PQ " value="12.0" /> <referenceRange> <observationRange> <text>10.0-14.5</text> </observationRange> </ referenceRange> </observation> </component> <component> <observation moodCode="EVN" classCode="OBS"> <templateId root= "2.16.840.1.991033.10..22.4.2" /> <id nullFlavor="NA" /> < code codeSystem="local" code="777-3" displayName="Automated blood platelet count (count/volume)" /> <statusCode code="completed" /> < effectiveTime value="045824943910" /> <value unit="10*3/uL" xsi:type= "PQ" value="230" /> <referenceRange> <observationRange> <text>130-400</text> </observationRange> </ referenceRange> </observation> </component> <component> <observation moodCode="EVN" classCode="OBS"> <templateId root= "2.16.840.1.149890...22.4.2" /> <id nullFlavor="NA" /> < code codeSystem="local" code="83777-4" displayName="Automated blood platelet mean volume measurement" /> <statusCode code="completed" /> < effectiveTime value="433463060203" /> <value unit="[[facility]]" xsi:type= "PQ" value="9.8" /> <referenceRange> <observationRange> <text>7.4-10.4</text> </observationRange> </ referenceRange> </observation> </component> <component> <observation moodCode="EVN" classCode="OBS"> <templateId root= "2.16.840.1.715859.10..22.4.2" /> <id nullFlavor="NA" /> < code codeSystem="local" code="770-8" displayName="Automated blood neutrophils/ 100 leukocytes" /> <statusCode code="completed" /> < effectiveTime value="489038387860" /> <value unit="%" xsi:type="PQ " value="74" /> <referenceRange> <observationRange> <text>42-75</text> </observationRange> </ referenceRange> </observation> </component> <component> <observation moodCode="EVN" classCode="OBS"> <templateId root= "2.16.840.1.555449.10..4.2" /> <id nullFlavor="NA" /> < code codeSystem="local" code="736-9" displayName="Automated blood lymphocytes/ 100 leukocytes" /> <statusCode code="completed" /> < effectiveTime value="503387522717" /> <value unit="%" xsi:type="PQ " value="18" /> <referenceRange> <observationRange> <text>12-44</text> </observationRange> </ referenceRange> </observation> </component> <component> <observation moodCode="EVN" classCode="OBS"> <templateId root= "2.16.840.1.001935.10.20.22.4.2" /> <id nullFlavor="NA" /> < code codeSystem="local" code="00481-9" displayName="Blood monocytes/100 leukocytes" /> <statusCode code="completed" /> <effectiveTime value="240777256628" /> <value unit="%" xsi:type="PQ" value="7" /> <referenceRange> <observationRange> <text>0-12 </text> </observationRange> </referenceRange> </ observation> </component> <component> <observation moodCode= "EVN" classCode="OBS"> <templateId root="2.16.840.1.254513.10..4.2 " /> <id nullFlavor="NA" /> <code codeSystem="local" code="713 -8" displayName="Automated blood eosinophils/100 leukocytes" /> < statusCode code="completed" /> <effectiveTime value="872592186598" /> <value unit="%" xsi:type="PQ" value="0" /> <referenceRange > <observationRange> <text>0-10</text> </ observationRange> </referenceRange> </observation> </ component> <component> <observation moodCode="EVN" classCode="OBS"> <templateId root="2.16.840.1.153519.10..22.4.2" /> <id nullFlavor="NA" /> <code codeSystem="local" code="706-2" displayName= "Automated blood basophils/100 leukocytes" /> <statusCode code= "completed" /> <effectiveTime value="501694264619" /> <value unit="%" xsi:type="PQ" value="0" /> <referenceRange> < observationRange> <text>0-10</text> </observationRange> </referenceRange> </observation> </component> < component> <observation moodCode="EVN" classCode="OBS"> < templateId root="2.16.840.1.253355.10.20.22.4.2" /> <id nullFlavor="NA " /> <code codeSystem="local" code="751-8" displayName="Blood neutrophils automated count (number/volume)" /> <statusCode code= "completed" /> <effectiveTime value="585020008360" /> <value unit="10*3" xsi:type="PQ" value="7.7" /> <referenceRange> < observationRange> <text>1.8-7.8</text> </ observationRange> </referenceRange> </observation> </ component> <component> <observation moodCode="EVN" classCode="OBS"> <templateId root="216.840.1.721385...4.2" /> <id nullFlavor="NA" /> <code codeSystem="local" code="731-0" displayName= "Blood lymphocytes automated count (number/volume)" /> <statusCode code ="completed" /> <effectiveTime value="126984236163" /> <value unit="10*3" xsi:type="PQ" value="1.9" /> <referenceRange> < observationRange> <text>1.0-4.0</text> </ observationRange> </referenceRange> </observation> </ component> <component> <observation moodCode="EVN" classCode="OBS"> <templateId root="2.16.840.1.547073.10.20.22.4.2" /> <id nullFlavor="NA" /> <code codeSystem="local" code="742-7" displayName= "Blood monocytes automated count (number/volume)" /> <statusCode code= "completed" /> <effectiveTime value="969415132641" /> <value unit="10*3" xsi:type="PQ" value="0.7" /> <referenceRange> < observationRange> <text>0.0-1.0</text> </ observationRange> </referenceRange> </observation> </ component> <component> <observation moodCode="EVN" classCode="OBS"> <templateId root="2.16.840.1.672098.10...4.2" /> <id nullFlavor="NA" /> <code codeSystem="local" code="711-2" displayName= "Automated eosinophil count" /> <statusCode code="completed" /> <effectiveTime value="068293557252" /> <value unit="10*3/uL" xsi: type="PQ" value="0.0" /> <referenceRange> <observationRange > <text>0.0-0.3</text> </observationRange> </ referenceRange> </observation> </component> <component> <observation moodCode="EVN" classCode="OBS"> <templateId root= "2.16.840.1.229087...4.2" /> <id nullFlavor="NA" /> < code codeSystem="local" code="704-7" displayName="Automated blood basophil count (count/volume)" /> <statusCode code="completed" /> < effectiveTime value="297185959958" /> <value unit="10*3/uL" xsi:type= "PQ" value="0.0" /> <referenceRange> <observationRange> <text>0.0-0.1</text> </observationRange> </ referenceRange> </observation> </component> </organizer> </entry > <entry> <organizer moodCode="EVN" classCode="BATTERY"> <templateId root="2.16.840.1.821982.10..22.4.1" /> <id nullFlavor="NA" /> <code codeSystem="local" code="72307-9" displayName="Comprehensive metabolic panel" / > <statusCode code="completed" /> <component> <observation moodCode="EVN" classCode="OBS"> <templateId root= "2.16.840.1.634700.10...4.2" /> <id nullFlavor="NA" /> < code codeSystem="local" code="2951-2" displayName="Serum or plasma sodium measurement (moles/volume)" /> <statusCode code="completed" /> <effectiveTime value="496094844642" /> <value unit="mmol/L" xsi:type= "PQ" value="138" /> <referenceRange> <observationRange> <text>135-145</text> </observationRange> </ referenceRange> </observation> </component> <component> <observation moodCode="EVN" classCode="OBS"> <templateId root= "2.16.840.1.177168.10..22.4.2" /> <id nullFlavor="NA" /> < code codeSystem="local" code="2823-3" displayName="Serum or plasma potassium measurement (moles/volume)" /> <statusCode code="completed" /> <effectiveTime value="045548421949" /> <value unit="mmol/L" xsi:type= "PQ" value="3.4" /> <interpretationCode codeSystem="local" code="" / > <referenceRange> <observationRange> <text>3.6 -5.0</text> </observationRange> </referenceRange> </ observation> </component> <component> <observation moodCode= "EVN" classCode="OBS"> <templateId root="216.840.1.212301.10..22.4.2 " /> <id nullFlavor="NA" /> <code codeSystem="local" code= "" displayName="Serum or plasma chloride measurement (moles/volume)" /> <statusCode code="completed" /> <effectiveTime value= "944245252401" /> <value unit="mmol/L" xsi:type="PQ" value="104" /> <referenceRange> <observationRange> <text>98-107< /text> </observationRange> </referenceRange> </ observation> </component> <component> <observation moodCode= "EVN" classCode="OBS"> <templateId root="05.07.840.1.054909.10...4.2 " /> <id nullFlavor="NA" /> <code codeSystem="local" code= "2027-11" displayName="Carbon dioxide" /> <statusCode code="completed" / > <effectiveTime value="152293757063" /> <value unit="mmol/L" xsi:type="PQ" value="24" /> <referenceRange> < observationRange> <text>21-32</text> </observationRange > </referenceRange> </observation> </component> < component> <observation moodCode="EVN" classCode="OBS"> < templateId root="05.07.840.1.207936.10..22.4.2" /> <id nullFlavor="NA " /> <code codeSystem="local" code="18096-3" displayName="Serum or plasma anion gap determination (moles/volume)" /> <statusCode code= "completed" /> <effectiveTime value="843402966083" /> <value unit="mmol/L" xsi:type="PQ" value="10" /> <referenceRange> < observationRange> <text>5-14</text> </observationRange> </referenceRange> </observation> </component> < component> <observation moodCode="EVN" classCode="OBS"> < templateId root="2.16.840.1.380362.10..22.4.2" /> <id nullFlavor="NA " /> <code codeSystem="local" code="3094-0" displayName="Serum or plasma urea nitrogen measurement (mass/volume)" /> <statusCode code= "completed" /> <effectiveTime value="428562712070" /> <value unit="mg/dL" xsi:type="PQ" value="14" /> <referenceRange> < observationRange> <text>7-18</text> </observationRange> </referenceRange> </observation> </component> < component> <observation moodCode="EVN" classCode="OBS"> < templateId root="2.16.840.1.443599.10.22.4.2" /> <id nullFlavor="NA " /> <code codeSystem="local" code="2160-0" displayName="Serum or plasma creatinine measurement (mass/volume)" /> <statusCode code= "completed" /> <effectiveTime value="913907166348" /> <value unit="mg/dL" xsi:type="PQ" value="0.86" /> <referenceRange> <observationRange> <text>0.60-1.30</text> </ observationRange> </referenceRange> </observation> </ component> <component> <observation moodCode="EVN" classCode="OBS"> <templateId root="2.16.840.1.461175.10..22.4.2" /> <id nullFlavor="NA" /> <code codeSystem="local" code="3097-3" displayName= "Serum or plasma urea nitrogen/creatinine mass ratio" /> <statusCode code="completed" /> <effectiveTime value="849040788002" /> < value unit="" xsi:type="PQ" value="16" /> <referenceRange> < observationRange> <text>NRG</text> </observationRange> </referenceRange> </observation> </component> < component> <observation moodCode="EVN" classCode="OBS"> < templateId root="2.16.840.1.291137.10..22.4.2" /> <id nullFlavor="NA " /> <code codeSystem="local" code="33000-5" displayName="Serum or plasma creatinine measurement with calculation of estimated glomerular filtration rate" /> <statusCode code="completed" /> < effectiveTime value="140858381410" /> <value unit="" xsi:type="PQ" value=">" /> <referenceRange> <observationRange> <text>NRG</text> </observationRange> </referenceRange > </observation> </component> <component> <observation moodCode="EVN" classCode="OBS"> <templateId root= "2.16.840.1.395038.10..22.4.2" /> <id nullFlavor="NA" /> < code codeSystem="local" code="2345-7" displayName="Serum or plasma glucose measurement (mass/volume)" /> <statusCode code="completed" /> <effectiveTime value="212602128829" /> <value unit="mg/dL" xsi:type="PQ " value="78" /> <referenceRange> <observationRange> <text>70-105</text> </observationRange> </ referenceRange> </observation> </component> <component> <observation moodCode="EVN" classCode="OBS"> <templateId root= "216.840.1.003595.10..22.4.2" /> <id nullFlavor="NA" /> < code codeSystem="local" code="39009-2" displayName="Serum or plasma calcium measurement (mass/volume)" /> <statusCode code="completed" /> <effectiveTime value="841449717811" /> <value unit="mg/dL" xsi:type="PQ " value="8.8" /> <referenceRange> <observationRange> <text>8.5-10.1</text> </observationRange> </ referenceRange> </observation> </component> <component> <observation moodCode="EVN" classCode="OBS"> <templateId root= "05.07.840.1.749762.10.22.4.2" /> <id nullFlavor="NA" /> < code codeSystem="local" code="1974-04" displayName="Serum or plasma total bilirubin measurement (mass/volume)" /> <statusCode code="completed" / > <effectiveTime value="960927353605" /> <value unit="mg/dL" xsi:type="PQ" value="1.7" /> <interpretationCode codeSystem="local" code="" /> <referenceRange> <observationRange> <text>0.1-1.0</text> </observationRange> </referenceRange > </observation> </component> <component> <observation moodCode="EVN" classCode="OBS"> <templateId root= "16.840.1.527048.10.20.22.4.2" /> <id nullFlavor="NA" /> < code codeSystem="local" code="6768-6" displayName="Serum or plasma alkaline phosphatase measurement (enzymatic activity/volume)" /> <statusCode code="completed" /> <effectiveTime value="172978482824" /> < value unit="U/L" xsi:type="PQ" value="53" /> <referenceRange> <observationRange> <text>40-136</text> </ observationRange> </referenceRange> </observation> </ component> <component> <observation moodCode="EVN" classCode="OBS"> <templateId root="2.16.840.1.788001.10.20.22.4.2" /> <id nullFlavor="NA" /> <code codeSystem="local" code="1919-10" displayName= "Serum or plasma aspartate aminotransferase measurement (enzymatic activity/ volume)" /> <statusCode code="completed" /> <effectiveTime value="892261883435" /> <value unit="U/L" xsi:type="PQ" value="15" /> <referenceRange> <observationRange> <text>5-34< /text> </observationRange> </referenceRange> </ observation> </component> <component> <observation moodCode= "EVN" classCode="OBS"> <templateId root="2.16.840.1.212372.10.20.22.4.2 " /> <id nullFlavor="NA" /> <code codeSystem="local" code= "1741-08" displayName="Serum or plasma alanine aminotransferase measurement ( enzymatic activity/volume)" /> <statusCode code="completed" /> <effectiveTime value="568855644090" /> <value unit="U/L" xsi:type="PQ " value="15" /> <referenceRange> <observationRange> <text>0-55</text> </observationRange> </referenceRange > </observation> </component> <component> <observation moodCode="EVN" classCode="OBS"> <templateId root= "2.16.840.1.849122.10.20.22.4.2" /> <id nullFlavor="NA" /> < code codeSystem="local" code="2885-2" displayName="Serum or plasma protein measurement (mass/volume)" /> <statusCode code="completed" /> <effectiveTime value="875188569631" /> <value unit="g/dL" xsi:type="PQ " value="6.7" /> <referenceRange> <observationRange> <text>6.4-8.2</text> </observationRange> </ referenceRange> </observation> </component> <component> <observation moodCode="EVN" classCode="OBS"> <templateId root= "05.07.840.1.087945.10..22.4.2" /> <id nullFlavor="NA" /> < code codeSystem="local" code="1751-7" displayName="Serum or plasma albumin measurement (mass/volume)" /> <statusCode code="completed" /> <effectiveTime value="271607893434" /> <value unit="g/dL" xsi:type="PQ " value="4.0" /> <referenceRange> <observationRange> <text>3.2-4.5</text> </observationRange> </ referenceRange> </observation> </component> </organizer> </entry > <entry> <organizer moodCode="EVN" classCode="BATTERY"> <templateId root="16.840.1.393680.10.20.22.4.1" /> <id nullFlavor="NA" /> <code codeSystem="local" code="3040-3" displayName="Lipase" /> <statusCode code= "completed" /> <component> <observation moodCode="EVN" classCode= "OBS"> <templateId root="05.07.840.1.423321.10.20.22.4.2" /> < id nullFlavor="NA" /> <code codeSystem="local" code="3040-3" displayName="Lipase" /> <statusCode code="completed" /> < effectiveTime value="455456135425" /> <value unit="U/L" xsi:type="PQ" value="23" /> <referenceRange> <observationRange> <text>8-78</text> </observationRange> </referenceRange> </observation> </component> </organizer> </entry> <entry> < organizer moodCode="EVN" classCode="BATTERY"> <templateId root= "2.16.840.1.257764.10.20.22.4.1" /> <id nullFlavor="NA" /> <code codeSystem="local" code="32584-3" displayName="Serum or plasma choriogonadotropin measurement (units/volume)" /> <statusCode code= "completed" /> <component> <observation moodCode="EVN" classCode= "OBS"> <templateId root="2.16.840.1.886426.10.20.22.4.2" /> < id nullFlavor="NA" /> <code codeSystem="local" code="07645-2" displayName="Serum or plasma choriogonadotropin measurement (units/volume)" /> <statusCode code="completed" /> <effectiveTime value= "794883126667" /> <value unit="m[iU]/mL" xsi:type="PQ" value="402" /> <interpretationCode codeSystem="local" code="" /> < referenceRange> <observationRange> <text><5</text> </observationRange> </referenceRange> </observation> </component> </organizer> </entry> <entry> <organizer moodCode="EVN " classCode="BATTERY"> <templateId root="05.07.840.1.529207.10..4.1" / > <id nullFlavor="NA" /> <code codeSystem="local" code="46695-7" displayName="Serum or plasma choriogonadotropin measurement (units/volume)" /> <statusCode code="completed" /> <component> <observation moodCode="EVN" classCode="OBS"> <templateId root= "840.1.885245.01.08.22.4.2" /> <id nullFlavor="NA" /> < code codeSystem="local" code="26052-1" displayName="Serum or plasma choriogonadotropin measurement (units/volume)" /> <statusCode code= "completed" /> <effectiveTime value="696050115580" /> <value unit="m[iU]/mL" xsi:type="PQ" value="149" /> <interpretationCode codeSystem="local" code="" /> <referenceRange> < observationRange> <text><5</text> </observationRange > </referenceRange> </observation> </component> </ organizer> </entry> <entry> <organizer moodCode="EVN" classCode="BATTERY"> <templateId root="05.07.840.1.921215.01.08.22.4.1" /> <id nullFlavor= "NA" /> <code codeSystem="local" code="28671-2" displayName="Influenza virus A and B antigen detection" /> <statusCode code="completed" /> < component> <observation moodCode="EVN" classCode="OBS"> < templateId root="16.840.1.593512.10...4.2" /> <id nullFlavor="NA " /> <code codeSystem="local" code="FLURESULT" displayName="FLU RESULT " /> <statusCode code="completed" /> <effectiveTime value= "401412259661" /> <value unit="" xsi:type="PQ" value="NEGATIVE FOR INFLUENZA A AND B ANTIGENS BY IA" /> <referenceRange> < observationRange> <text>NRG</text> </observationRange> </referenceRange> </observation> </component> </ organizer> </entry> <entry> <organizer moodCode="EVN" classCode="BATTERY"> <templateId root="216.840.1.585106.10.20.22.4.1" /> <id nullFlavor= "NA" /> <code codeSystem="local" code="43818-0" displayName="Serum or plasma choriogonadotropin measurement (units/volume)" /> <statusCode code= "completed" /> <component> <observation moodCode="EVN" classCode= "OBS"> <templateId root="2.16.840.1.812946.10.20.22.4.2" /> < id nullFlavor="NA" /> <code codeSystem="local" code="59353-9" displayName="Serum or plasma choriogonadotropin measurement (units/volume)" /> <statusCode code="completed" /> <effectiveTime value= "796646592095" /> <value unit="m[iU]/mL" xsi:type="PQ" value="36" /> <interpretationCode codeSystem="local" code="" /> < referenceRange> <observationRange> <text><5</text> </observationRange> </referenceRange> </observation> </component> </organizer> </entry> <entry> <organizer moodCode="EVN " classCode="BATTERY"> <templateId root="2.16.840.1.001910.10.20.22.4.1" / > <id nullFlavor="NA" /> <code codeSystem="local" code="2117-10" displayName="Serum or plasma choriogonadotropin ( test) detection" /> <statusCode code="completed" /> <component> <observation moodCode="EVN" classCode="OBS"> <templateId root= "2.16.840.1.929905.10.20.22.4.2" /> <id nullFlavor="NA" /> < code codeSystem="local" code="2117-10" displayName="Serum or plasma choriogonadotropin ( test) detection" /> <statusCode code= "completed" /> <effectiveTime value="" /> <value unit="" xsi:type="PQ" value="POSITIVE" /> <referenceRange> < observationRange> <text>NEGATIVE</text> </ observationRange> </referenceRange> </observation> </ component> </organizer> </entry> <entry> <organizer moodCode="EVN" classCode="BATTERY"> <templateId root="2.16.840.1.507994.10.20.22.4.1" /> <id nullFlavor="NA" /> <code codeSystem="local" code="92087-3" displayName="Serum or plasma choriogonadotropin measurement (units/volume)" /> <statusCode code="completed" /> <component> <observation moodCode="EVN" classCode="OBS"> <templateId root= "2.16.840.1.195477.10.20.22.4.2" /> <id nullFlavor="NA" /> < code codeSystem="local" code="20552-8" displayName="Serum or plasma choriogonadotropin measurement (units/volume)" /> <statusCode code= "completed" /> <effectiveTime value="" /> <value unit="m[iU]/mL" xsi:type="PQ" value="828" /> <interpretationCode codeSystem="local" code="" /> <referenceRange> < observationRange> <text><5</text> </observationRange > </referenceRange> </observation> </component> </ organizer> </entry> <entry> <organizer moodCode="EVN" classCode="BATTERY"> <templateId root="2.16.840.1.500897.10.20.22.4.1" /> <id nullFlavor= "NA" /> <code codeSystem="local" code="58316-2" displayName="Serum or plasma choriogonadotropin measurement (units/volume)" /> <statusCode code= "completed" /> <component> <observation moodCode="EVN" classCode= "OBS"> <templateId root="2.16.840.1.826387.10..22.4.2" /> < id nullFlavor="NA" /> <code codeSystem="local" code="80927-5" displayName="Serum or plasma choriogonadotropin measurement (units/volume)" /> <statusCode code="completed" /> <effectiveTime value= "636241648253" /> <value unit="m[iU]/mL" xsi:type="PQ" value="3002" /> <interpretationCode codeSystem="local" code="" /> < referenceRange> <observationRange> <text><5</text> </observationRange> </referenceRange> </observation> </component> </organizer> </entry> <entry> <organizer moodCode="EVN " classCode="BATTERY"> <templateId root="2.16.840.1.730419.10..22.4.1" / > <id nullFlavor="NA" /> <code codeSystem="local" code="ORD61" displayName="Beta HCG" /> <statusCode code="completed" /> <component> <observation moodCode="EVN" classCode="OBS"> <templateId root= "2.16.840.1.290598.10.20.22.4.2" /> <id nullFlavor="NA" /> < code codeSystem="local" code="Ibk1297" displayName="Beta HCG" /> < statusCode code="completed" /> <effectiveTime value="100578330169" /> <value unit="mIU/mL" xsi:type="PQ" value="34455" /> < interpretationCode codeSystem="local" code="H" /> <referenceRange> <observationRange> <text>5-25</text> </ observationRange> </referenceRange> </observation> </ component> </organizer> </entry></section> Encounters ACCT No. Visit Date/Time Discharge Status Pt. Type Provider Facility Loc./Unit Complaint [id number] 08/19/2017 11:31:00 08/21/2017 11:15:00 DIS Inpatient KYRA ESTEBANPATRICK [facility] LDRP HYPEREMESIS [id number] 08/11/2017 12:07:00 08/11/2017 23:59:59 CLS Outpatient BRAYAN PEREZ [facility] LAB EARLY [id number] 08/08/2017 15:21:00 08/08/2017 19:07:00 DIS Outpatient BRAYAN PEREZ [facility] ER STOMACH CRAMPS [id number] 05/05/2017 10:21:00 05/05/2017 23:59:59 CLS Outpatient LIGIA KING MD [facility] LAB HCG QUANT [id number] 05/01/2017 10:23:00 05/01/2017 23:59:59 CLS Outpatient BRAYAN PEREZ [facility] LAB THREATENED MISCARRIAGE, LOWER ABD PAIN [id number] 04/29/2017 14:31:00 04/29/2017 17:50:00 DIS Emergency BRAYAN PEREZ [facility] ER ABD PAIN [id number] 09/16/2015 12:29:00 09/16/2015 17:30:00 DIS Outpatient BRIDGER BLUE MD [facility] BILATERAL LABIAL HYPERTROPHY [id number] 09/13/2015 14:05:00 09/13/2015 23:59:59 CLS Outpatient BRIDGER BLUE MD [facility] PREOP BILATERAL LABIAL HYPERTROPHY [id number] 11/30/2014 11:52:00 11/30/2014 14:36:00 DIS Outpatient KASSI MUÑIZ, MONIQUE Payne [facility] ULCERS;EPIGASTRIC PAIN;BLOOD IN STOOLS;DIARRHEA [id number] 11/29/2014 05:40:00 11/29/2014 23:59:59 CLS Outpatient MONIQUE SOLITARIO MD [facility] PREOP ULCERS;EPIGASTRIC PAIN;BLOOD IN STOOLS;DIARRHEA [id number] 11/26/2014 19:32:00 11/26/2014 22:14:00 DIS Emergency SLOANE ESTEBAN LIGIA K [facility] ER FEVER,VOMITING,SORE THROAT [id number] 05/06/2014 10:49:00 05/06/2014 13:26:00 DIS Emergency SLOANE ESTEBAN LIGIA Mariama [facility] ER SUICIDE ATTEMPT [id number] 04/05/2014 09:35:00 04/05/2014 11:12:00 DIS Emergency JAVI GARLAND MD [facility] ER SYNCOPAL EPISODE [id number] 02/05/2014 09:55:00 02/05/2014 12:35:00 DIS Outpatient SANDRA LIND DO [facility] 4THo DEHYDRATION [id number] 03/16/2013 20:43:00 03/16/2013 23:01:00 DIS Emergency CHARLES MIRANDA MD [facility] ER SUICIDE ATTEMPT [id number] 12/24/2012 20:12:00 12/24/2012 21:57:00 DIS Emergency MELQUIADES OCHOA MD [facility] ER VOMITING [id number] 06/08/2012 06:30:00 Document Registration [id number] 06/01/2012 07:42:00 Document Registration [id number] 02/05/2011 20:35:00 Document Registration [facility] 06/03/2016 15:57:53 ACT Document Registration [id number] 08/10/2016 15:51:00 08/10/2016 23:59:[address] [place] [id number] 12/14/2016 10:00:00 12/14/2016 23:59:59 [facility] [id number] 08/17/2017 05:12:00 08/17/2017 06:25:00 DIS Outpatient [facility] [id number] 03/03/2017 13:58:00 03/03/2017 23:59:00 DIS Outpatient Ligia King [id number] 02/26/2017 14:47:00 02/26/2017 23:59:00 DIS Outpatient Ligia King [id number] 12/29/2016 04:33:00 12/29/2016 05:13:00 DIS Outpatient REINALDO BOBO [id number] 12/29/2016 05:03:45 Document Registration [id number] 06/03/2016 10:00:00 06/03/2016 10:28:00 DIS Emergency Tiffanie MUÑIZ, [facility] [id number] 04/09/2016 08:28:00 04/12/2016 12:27:00 DIS Outpatient Lisa MUÑIZ, [facility] W.7TN [id number] 02/24/2016 00:55:00 02/24/2016 03:20:00 DIS Emergency Tiffanie MUÑIZ, [facility] [id number] 01/31/2016 19:11:00 01/31/2016 21:26:00 DIS Emergency Za MUÑIZ, Yang Munoz [facility] 11/30/2014 11:52:47 ACT Document Registration [id number] 03/08/2017 16:19:00 Document Registration [id number] 09/16/2016 09:17:17 09/16/2016 23:59:59 CLS Outpatient Sandra Lind
[2017-08-23] MEDS ORDERED: SCOPOLAMINE PATCH REMOVAL TP SCH (13:29)
[2017-09-10] MEDS ORDERED: ONDA4TAB8 SL (09:30)
== END 2017-08-21 09:57 | disposition home or self-care (01) ==
LOC: LDRP 11:25 → UNDOADMOB 11:25 → WSo 11:30 → LDRP 11:30 → WSo 11:31 → UNDOADMOB 11:31 → LDRP 11:31 → 3RD 08-20 09:34 → LDRP 08-20 09:34 → UNDODISOB 08-21 11:15 → EDSTATUS 08-23 09:36
PROVIDERS: ADMIT Obstetrics & Gynecology; ATTEND Obstetrics & Gynecology
DX: O21.1 Hyperemesis gravidarum with metabolic disturbance (principal); O99.281 Endocrine, nutritional and metabolic diseases complicating pregnancy, first trimester; E86.0 Dehydration; R79.89 Other specified abnormal findings of blood chemistry; Z3A.01 Less than 8 weeks gestation of pregnancy
CPT/HCPCS: 96361; 96374; 96375; 96376; 99211; G0378

== ENCOUNTER 2017-09-01 11:54 | Observation (INO) | payer BC, MEDICAID ==
[~2017-09-01] VITALS: Ht 160 cm; Wt 53.1 kg
[~2017-09-01 11:54] MED LIST changes: +DOXY1TAB3 PO; +PROC10TA10 PO; +PROC25SU3 RC; +SCOP1PAT11 TOP
[2017-09-01 12:16] VITALS: BP 110/74
[2017-09-01] MEDS ORDERED: CALCIUM CARBONATE 500 MG (TUMS) TAB.CHEW PO PRN (12:30)
[2017-09-01] MEDS ORDERED: METOCLOPRAMIDE INJ 10 MG/2 ML (REGLAN) IVP SCH (12:30)
[2017-09-01] MEDS ORDERED: THIAMINE INJECTION 100 MG, FOLIC ACID INJECTION 1 MG, VITAMIN MULTI INJECTION 10 ML, MA... IV ONE ×5 (12:30)
[2017-09-01] MEDS ORDERED: FAMOTIDINE 20MG/2ML IV (PEPCID) IVP SCH (12:30)
--- NOTE | 2017-09-01 12:31 | History & Physical-OB ---
OB - Chief Complaint & HPI Date/Time Date of Admission: Date of Admission: 09/01/17 Time Seen by Provider: 12:30 Chief Complaint/History OB-Reason for Admission/Chief: Medical Complication (HYPEREMESIS) Hx : 2 Hx Para: 0 Allergies and Home Medications Allergies Coded Allergies: hydrocodone (Unverified Allergy, Intermediate, HIVES, 09/16/15) penicillin (Unverified Allergy, Mild, RASH, 09/16/15) Home Medications Doxylamine/Pyridoxine HCl 1 Each Tablet.dr, 2 EACH PO HS Prescribed by: PATRICK RAE on 08/20/171405 Prochlorperazine 25 Mg Supp.rect, 25 MG RC BID Prescribed by: PATRICK RAE on 08/20/171405 Prochlorperazine Maleate 10 Mg Tablet, 10 MG PO BID Prescribed by: PATRICK RAE on 08/20/171405 Scopolamine 1 Each Patch.td72, 1.5 MG TOP Q72H Prescribed by: PATRICK RAE on 08/20/17 140 OB - History Delivery History Hx Blood Disorders: No Social History/Family History Sexually Transmitted Disease: No Immunizations Tetanus Booster (TDap): More than 5yrs Date of Influenza Vaccine: Dec 20, 2013 PATRICK RAE DO Sep 01, 2017 12:31
[2017-09-01 13:10] LABS: BASOPHILS % (AUTO) 0 % (0-10); EOSINOPHILS % (AUTO) 0 % (0-10); HEMATOCRIT 38 % (35-52); HEMOGLOBIN 13.6 G/DL (11.5-16.0); LYMPHOCYTES # (AUTO) 1.4 X 10^3 (1.0-4.0); LYMPHOCYTES % (AUTO) 14 % (12-44); MEAN CORPUSCULAR HEMOGLOBIN 29 PG (25-34); MEAN CORPUSCULAR HGB CONC 36 G/DL (32-36); MEAN CORPUSCULAR VOLUME 83 FL (80-99); MONOCYTES # (AUTO) 0.6 X 10^3 (0.0-1.0); MONOCYTES % (AUTO) 6 % (0-12); NEUTROPHILS # (AUTO) 7.9 X 10^3 (1.8-7.8); NEUTROPHILS % (AUTO) 79 % (42-75); PLATELET COUNT 268 10^3/uL (130-400); RED BLOOD COUNT 4.62 10^6/uL (4.35-5.85); RED CELL DISTRIBUTION WIDTH 12.6 % (10.0-14.5)
[2017-09-01 13:24] LABS: ALANINE AMINOTRANSFERASE 13 U/L (0-55); ALBUMIN 4.2 GM/DL (3.2-4.5); ALKALINE PHOSPHATASE 46 U/L (40-136); BILIRUBIN,TOTAL 1.3 MG/DL (0.1-1.0); BUN/CREATININE RATIO 10; CALCIUM 9.2 MG/DL (8.5-10.1); CARBON DIOXIDE 20 MMOL/L (21-32); CHLORIDE 106 MMOL/L (98-107); CREATININE SERUM 0.72 MG/DL (0.60-1.30); GFR ESTIMATED > 60; GLUCOSE 84 MG/DL (70-105); MAGNESIUM 1.9 MG/DL (1.8-2.4); PHOSPHORUS 2.4 MG/DL (2.3-4.7); POTASSIUM 3.6 MMOL/L (3.6-5.0); SODIUM 137 MMOL/L (135-145)
[2017-09-01] MEDS: PROCHLORPERAZINE 10 MG/2ML INJ (COMPAZINE) IV SCH ×2 (13:42→20:17)
[2017-09-01 15:21] VITALS: BP 99/65
[2017-09-01] MEDS: raNItidine 50 MG/2 ML INJ (ZANTAC) IV SCH ×2 (17:49→21:26)
[2017-09-01 20:04] VITALS: BP 96/57
[2017-09-01] MEDS ORDERED: raNItidine 50 MG/2 ML INJ (ZANTAC) IV SCH (21:00)
[2017-09-01] MEDS: D5 LR IV SOLUTION 1,000 ML IV SCH (21:25)
[2017-09-02 02:37] VITALS: BP 88/49
[2017-09-02] MEDS: D5 LR IV SOLUTION 1,000 ML IV SCH ×2 (04:05→08:11)
[2017-09-02 05:43] VITALS: BP 110/68
[2017-09-02 07:40] VITALS: BP 97/59
[2017-09-02] MEDS: PROCHLORPERAZINE 10 MG/2ML INJ (COMPAZINE) IV SCH ×2 (07:42→14:30)
[2017-09-02] MEDS ORDERED: PATIENT MAY USE OWN MED,SINGLE MED PO SCH (09:15)
[2017-09-02] MEDS ORDERED: THIAMINE INJECTION 100 MG, FOLIC ACID INJECTION 1 MG, VITAMIN MULTI INJECTION 10 ML, MA... IV SCH ×5 (09:15)
[2017-09-02] MEDS: raNItidine 50 MG/2 ML INJ (ZANTAC) IV SCH (09:50)
--- NOTE | 2017-09-02 10:18 | Physician Progress Note ---
Progress Note Vitals Last set of Vitals Signs Vital Signs Date Time Temp Pulse Resp B/P (MAP) Pulse Ox O2 Delivery O2 Flow Rate FiO2 09/02/17 07:40 98.2 70 18 97/59 (72) 99 Room Air I&O I&O Intake and Output 09/02/17 00:00 Intake Total 1000 ml Output Total 0 ml Balance 1000 ml IV Total 1000 ml Output Urine Total 0 ml Labs Laboratory Tests 09/01/17 12:57: White Blood Count 10.0, Red Blood Count 4.62, Hemoglobin 13.6, Hematocrit 38, Mean Corpuscular Volume 83, Mean Corpuscular Hemoglobin 29, Mean Corpuscular Hemoglobin Concent 36, Red Cell Distribution Width 12.6, Platelet Count 268, Mean Platelet Volume 9.0, Neutrophils (%) (Auto) 79H, Lymphocytes (%) (Auto) 14 , Monocytes (%) (Auto) 6, Eosinophils (%) (Auto) 0, Basophils (%) (Auto) 0, Neutrophils # (Auto) 7.9H, Lymphocytes # (Auto) 1.4, Monocytes # (Auto) 0.6, Eosinophils # (Auto) 0.0, Basophils # (Auto) 0.0, Sodium Level 137, Potassium Level 3.6, Chloride Level 106, Carbon Dioxide Level 20L, Anion Gap 11, Blood Urea Nitrogen 7, Creatinine 0.72, Estimat Glomerular Filtration Rate > 60, BUN/ Creatinine Ratio 10, Glucose Level 84, Calcium Level 9.2, Phosphorus Level 2.4, Magnesium Level 1.9, Total Bilirubin 1.3H, Aspartate Amino Transf (AST/SGOT) 15 , Alanine Aminotransferase (ALT/SGPT) 13, Alkaline Phosphatase 46, Total Protein 7.0, Albumin 4.2 PATRICK RAE DO Sep 02, 2017 10:18
[2017-09-02] MEDS ORDERED: [UNRECOGNIZED DRUG - OTHER] PO PRN (11:00)
[2017-09-02 12:00] VITALS: BP 102/61
--- OUTSIDE RECORDS SUMMARY | 2017-09-06 15:52 | XMS REPORT | Continuity of Care Document ---
Author Author [facility] Organization [facility] Address Unknown Phone Unavailable Allergies Active Description Code Type Severity Reaction Onset Reported/Identified Relationship to Patient Clinical Status Yes HYDROCODONE-ACETAMINOPHEN MODERATE ITCHING Yes PENICILLINS UNKNOWN UNKNOWN Yes hydrocodone [id number] Drug Allergy Mild N/A 02/05/2011 Yes penicillin [id number] Drug Allergy Unknown N/A 11/26/2014 Yes hydrocodone [id number] Drug Allergy Moderate HIVES 09/16/2015 Yes penicillin [id number] Drug Allergy Mild RASH 09/16/2015 Yes hydrocodone [...] Payne Ot V72.84 EXAM PRE-OPERATIVE NOS 04/29/2017 US MUÑIZ, BRIDGER Mike Ot 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 04/29/2017 BRIDGER BLUE MD Ot Z01.818 ENCOUNTER FOR OTHER PREPROCEDURAL EXAMIN 04/29/2017 BRAYAN PEREZ Ot E86.9 VOLUME DEPLETION, UNSPECIFIED 04/29/2017 BRAYAN PEREZ Ot F12.10 CANNABIS ABUSE, UNCOMPLICATED 04/29/2017 BRAYAN EPREZ Ot F32.9 MAJOR DEPRESSIVE DISORDER, SINGLE EPISOD 04/29/2017 BRAYNA PEREZ Ot O20.0 THREATENED 04/29/2017 BRAYAN PEREZ Ot O23.40 UNSP INFECTION OF URINARY TRACT IN PREGN 04/29/2017 BRAYAN EPREZ Ot O99.280 ENDO, NUTRITIONAL AND METAB DISEASES [...] UNSP SPONTANEOUS [place] 08/08/2017 BRAYAN PEREZ Ot F12.90 CANNABIS USE, UNSPECIFIED, UNCOMPLICATED 08/08/2017 BRAYAN PEREZ Ot F17.210 NICOTINE DEPENDENCE, CIGARETTES, UNCOMPL 08/08/2017 BRAYAN PEREZ Ot F32.9 MAJOR DEPRESSIVE DISORDER, SINGLE EPISOD 08/08/2017 BRAYAN PEREZ Ot F41.9 ANXIETY DISORDER, UNSPECIFIED 08/08/2017 BRAYAN PEREZ Ot R10.84 GENERALIZED ABDOMINAL PAIN 08/08/2017 BRAYAN PEREZ Ot Z32.01 ENCOUNTER FOR TEST, RESULT POS 08/08/2017 BRAYAN PEREZ Ot Z87.01 PERSONAL HISTORY OF PNEUMONIA (RECURRENT 08/08/2017 BRAYAN PEREZ Ot Z87.19 PERSONAL HISTORY OF OTHER DISEASES OF TH 08/08/2017 BRAYAN PEREZ Ot Z87.81 PERSONAL HISTORY OF (HEALED) TRAUMATIC F 08/08/2017 BRAYAN PEREZ Ot Z88.0 ALLERGY STATUS TO PENICILLIN 08/08/2017 BRAYAN PEREZ Ot Z88.5 ALLERGY STATUS TO NARCOTIC AGENT STATUS 08/08/2017 BRAYAN PEREZ Ot Z90.49 ACQUIRED ABSENCE OF OTHER SPECIFIED PART 08/08/2017 BRAYAN PEREZ Ot Z91.5 PERSONAL HISTORY OF SELF-HARM 08/10/2017 BRAYAN PEREZ Ot F12.90 CANNABIS USE, [...] PEREZ Ot R10.84 GENERALIZED ABDOMINAL PAIN 08/14/2017 BRAYAN PEREZ Ot Z32.01 ENCOUNTER FOR TEST, RESULT POS 08/14/2017 BRAYAN PEREZ Ot Z87.01 PERSONAL HISTORY OF PNEUMONIA (RECURRENT 08/14/2017 BRAYAN PEREZ Ot Z87.19 PERSONAL HISTORY OF OTHER DISEASES OF 08/14/2017 BRAYAN PEREZ Ot Z87.81 PERSONAL HISTORY OF (HEALED) TRAUMATIC F 08/14/2017 BRAYAN PEREZ Ot Z88.0 ALLERGY STATUS TO PENICILLIN 08/14/2017 BRAYAN PEREZ Ot Z88.5 ALLERGY STATUS TO NARCOTIC AGENT STATUS 08/14/2017 BRAYAN PEREZ Ot Z90.49 ACQUIRED ABSENCE OF OTHER SPECIFIED PART 08/14/2017 BRAYAN PEREZ Ot Z91.5 PERSONAL HISTORY OF SELF-HARM 08/17/2017 Crooks, Peter A 643.0 MILD HYPEREMESIS GRAVIDARUM 08/17/2017 Eligio Crooks O21.0 MILD HYPEREMESIS GRAVIDARUM 08/21/2017 PATRICK RAE DO Ot E86.0 DEHYDRATION 08/21/2017 PATRICK RAE DO Ot O21.1 HYPEREMESIS GRAVIDARUM WITH METABOLIC DI 08/21/2017 PATRICK RAE DO Ot O99.281 ENDO, NUTRITIONAL AND METAB DISEASES COM 08/21/2017 PATRICK RAE DO Ot R79.89 OTHER SPECIFIED ABNORMAL FINDINGS OF BLO 08/21/2017 PATRICK RAE DO Ot Z3A.01 LESS THAN 8 WEEKS GESTATION OF 08/23/2017 BRAYAN PEREZ Ot Z34.90 ENCNTR FOR SUPRVSN OF NORMAL , Procedures There is no data. <section xmlns="urn:hl7-org:v3" xmlns:xsi="http:// www.[employer].org/2001/XMLSchema-instance"> <templateId root= "[id number].3" /> <templateId root= "2.16.840.1.977082.10.20.22.2.3.1" /> <code codeSystemName="LOINC" codeSystem= "[id number]" code="16511-2" displayName="Results" /> <title>Results< /title> <text> <table> <thead> [...] TEST</td> <td>NEGATIVE </td> <td>NEGATIVE</td> </tr> <tr> < colspan="10"> URINALYSIS, ROUTINE - 04/09/16 08:34</th> </tr> [...] (TSH)</td> < td>0.82 uIU/mL</td> <td>0.46-4.13</td> </tr> <tr> <th colspan="10">LIPASE - 04/09/16 08:53</th> </tr> <tr> <td>LIPASE</td> <td>180 Units/L</td> <td>73-393</td> </tr> <tr> <th colspan="10">PREALBUMIN - 04/09/16 08:53</th> </tr> <tr> <td>PREALBUMIN</td> <td>24 mg/dL</td > <td>20-40</td> </tr> <tr> <th colspan="10"> CHEM/HEM PROFILE-BEDSIDE - 04/09/16 09:05</th> </tr> [...] Observed </td > <td>Not Observed</td> </tr> <tr> <th colspan= "10">Chlamydia/GC Amplification - 02/26/17 17:05</th> </tr> <tr> <td>CHLAMYDIA TRACHOMATIS, MELISSA</td> <td>NEGATIVE </td> <td>NEGATIVE</td> </tr> <tr> <td>NEISSERIA GONORRHOEAE , MELISSA</td> <td>NEGATIVE </td> <td>NEGATIVE</td> </tr> <tr> <th colspan="10">Chlamydia/GC Amplification - 02/26/17 17: 05</th> </tr> <tr> <td>Chlamydia trachomatis, MELISSA</td> <td>Negative </td> <td>Negative</td> </tr> <tr> <td>Neisseria gonorrhoeae, MELISSA</td> <td>Negative </td> <td>Negative</td> </tr> <tr> <th colspan="10">Ova + Parasite Exam - 03/03/17 14:23</th> </tr> <tr> <td>OVA + PARASITE EXAM</td> <td>FINAL REPORT </td> <td /> </tr> <tr> <td>RESULT 1</td> <td>NO OVA, CYSTS, OR PARASITES SEEN. </td> <td /> </tr> <tr> <th colspan="10">Complete urinalysis with reflex to culture - [...] 08/17/17 05:15</th> </tr> <tr> <td>Beta HCG</ td> <td>02078 mIU/mL</td> <td>5-25</td> </tr> < tr> <th colspan="10">Complete blood count (CBC) with automated white blood cell (WBC) differential - 09/01/17 12:57</th> </tr> <tr> <td>Blood leukocytes automated count (number/volume)</td> <td> 10.0 10*3/uL</td> <td>4.3-11.0</td> </tr> <tr> < td>Blood erythrocytes automated count (number/volume)</td> <td>4.62 10* 6/uL</td> <td>4.35-5.85</td> </tr> <tr> <td> Venous blood hemoglobin measurement (mass/volume)</td> <td>13.6 g/dL</ td> <td>11.5-16.0</td> </tr> <tr> <td>Blood hematocrit (volume fraction)</td> <td>38 %</td> <td>35-52< /td> </tr> <tr> <td>Automated erythrocyte mean corpuscular volume</td> <td>83 [foz_us]</td> <td>80-99</td> </tr> <tr> <td>Automated erythrocyte mean corpuscular hemoglobin (mass per erythrocyte)</td> <td>29 pg</td> <td>25- 34</td> </tr> <tr> <td>Automated erythrocyte mean corpuscular hemoglobin concentration measurement (mass/volume)</td> <td >36 g/dL</td> <td>32-36</td> </tr> <tr> <td> Automated erythrocyte distribution width ratio</td> <td>12.6 %</td > <td>10.0-14.5</td> </tr> <tr> <td>Automated blood platelet count (count/volume)</td> <td>268 10*3/uL</td> <td>130-400</td> </tr> <tr> <td>Automated blood platelet mean volume measurement</td> <td>9.0 [foz_us]</td> <td>7.4- 10.4</td> </tr> <tr> <td>Automated blood neutrophils/100 leukocytes</td> <td>79 %</td> <td>42-75</td> </tr> <tr> <td>Automated blood lymphocytes/100 leukocytes</td> <td>14 %</td> <td>12-44</td> </tr> <tr> <td>Blood monocytes/100 leukocytes</td> <td>6 %</td> <td>0 -12</td> </tr> <tr> <td>Automated blood eosinophils/100 leukocytes</td> <td>0 %</td> <td>0-10</td> </tr> <tr> <td>Automated blood basophils/100 leukocytes</td> < td>0 %</td> <td>0-10</td> </tr> <tr> <td> Blood neutrophils automated count (number/volume)</td> <td>7.9 10*3</td > <td>1.8-7.8</td> </tr> <tr> <td>Blood lymphocytes automated count (number/volume)</td> <td>1.4 10*3</td> <td>1.0-4.0</td> </tr> <tr> <td>Blood monocytes automated count (number/volume)</td> <td>0.6 10*3</td> <td>0.0 -1.0</td> </tr> <tr> <td>Automated eosinophil count</td> <td>0.0 10*3/uL</td> <td>0.0-0.3</td> </tr> <tr > <td>Automated blood basophil count (count/volume)</td> <td> 0.0 10*3/uL</td> <td>0.0-0.1</td> </tr> <tr> < colspan="10">Comprehensive metabolic panel - 09/01/17 12:57</th> </tr > <tr> <td>Serum or plasma sodium measurement (moles/volume)</td > <td>137 mmol/L</td> <td>135-145</td> </tr> <tr > <td>Serum or plasma potassium measurement (moles/volume)</td> <td>3.6 mmol/L</td> <td>3.6-5.0</td> </tr> <tr> <td>Serum or plasma chloride measurement (moles/volume)</td> <td> 106 mmol/L</td> <td>98-107</td> </tr> <tr> <td> Carbon dioxide</td> <td>20 mmol/L</td> <td>21-32</td> < /tr> <tr> <td>Serum or plasma anion gap determination (moles/ volume)</td> <td>11 mmol/L</td> <td>5-14</td> </tr> <tr> <td>Serum or plasma urea nitrogen measurement (mass/volume)</ td> <td>7 mg/dL</td> <td>7-18</td> </tr> <tr> <td>Serum or plasma creatinine measurement (mass/volume)</td> < td>0.72 mg/dL</td> <td>0.60-1.30</td> </tr> <tr> <td>Serum or plasma urea nitrogen/creatinine mass ratio</td> <td>10 < /td> <td>NRG</td> </tr> <tr> <td>Serum or plasma creatinine measurement with calculation of estimated glomerular filtration rate</td> <td>> </td> <td>NRG</td> </tr> <tr> <td>Serum or plasma glucose measurement (mass/volume)</td > <td>84 mg/dL</td> <td>70-105</td> </tr> <tr> <td>Serum or plasma calcium measurement (mass/volume)</td> <td >9.2 mg/dL</td> <td>8.5-10.1</td> </tr> <tr> <td >Serum or plasma total bilirubin measurement (mass/volume)</td> <td> 1.3 mg/dL</td> <td>0.1-1.0</td> </tr> <tr> <td> Serum or plasma alkaline phosphatase measurement (enzymatic activity/volume)</td > <td>46 U/L</td> <td>40-136</td> </tr> <tr> <td>Serum or plasma aspartate aminotransferase measurement (enzymatic activity/volume)</td> <td>15 U/L</td> <td>5-34</td> </ tr> <tr> <td>Serum or plasma alanine aminotransferase measurement (enzymatic activity/volume)</td> <td>13 U/L</td> < td>0-55</td> </tr> <tr> <td>Serum or plasma protein measurement (mass/volume)</td> <td>7.0 g/dL</td> <td>6.4-8.2</ td> </tr> <tr> <td>Serum or plasma albumin measurement ( mass/volume)</td> <td>4.2 g/dL</td> <td>3.2-4.5</td> </ tr> <tr> <th colspan="10">Serum or plasma phosphate measurement (mass/volume) - 09/01/17 12:57</th> </tr> <tr> <td>Serum or plasma phosphate measurement (mass/volume)</td> <td>2.4 mg/dL</td> <td>2.3-4.7</td> </tr> <tr> <th colspan="10"> Magnesium - 09/01/17 12:57</th> </tr> <tr> <td>Magnesium< /td> <td>1.9 mg/dL</td> <td>1.8-2.4</td> </tr> </ tbody> </table> </text> <entry> <organizer moodCode="EVN" classCode= "BATTERY"> <templateId root="[id number].1" /> <id nullFlavor="NA" /> <code codeSystem="local" code="UC" displayName="URINE CULTURE" /> <statusCode code="completed" /> <component> < observation moodCode="EVN" classCode="OBS"> <templateId root= "[id number].2" /> <id nullFlavor="NA" /> < code codeSystem="local" code="MB" displayName="Microbiology" /> < statusCode code="completed" /> <effectiveTime value="[id number]" /> <value xsi:type="ST" value="<pre><b>URINE CULTURE</b> See BelowURINE CULTURE(F) Franko Date/Time: 01/31/2016 19:18 Luly Date/Time: 2016 08:28SOURCE: URINESPEC DESC: CLEAN CATCHTREATMENT OF ASYMPTOMATIC BACTERIURIA IS NOT USUALLYCLINICALLY INDICATED.MIXED GRAM POSITIVE?MIXED GRAM POSITIVE BACTERIAGROUP B STREP? .INCLUDING GROUP B STREPTOCOCCUSWESLEY MEDICAL [id number] [facility] [address]</pre>" /> <referenceRange> <observationRange> <text /> </observationRange> </referenceRange> </observation> </component> </organizer> </entry> <entry> < organizer moodCode="EVN" classCode="BATTERY"> <templateId root= "216.840.1.367989.10..22.4.1" /> <id nullFlavor="NA" /> <code codeSystem="local" code="UA" displayName="URINALYSIS, ROUTINE" /> < statusCode code="completed" /> <component> <observation moodCode= "EVN" classCode="OBS"> <templateId root="216.840.1.336878.10..22.4.2 " /> <id nullFlavor="NA" /> <code codeSystem="local" code= "LEUESU" displayName="UA LEUKOCYTE ESTERASE DIPSTICK" /> <statusCode code="completed" /> <effectiveTime value="" /> < value unit="" xsi:type="PQ" value="TRACE" /> <referenceRange> <observationRange> <text>NEGATIVE</text> </ observationRange> </referenceRange> </observation> </ component> <component> <observation moodCode="EVN" classCode="OBS"> <templateId root="[id number]..22.4.2" /> <id nullFlavor="NA" /> <code codeSystem="local" code="NITRIU" displayName= "UA NITRITE DIPSTICK" /> <statusCode code="completed" /> < effectiveTime value="" /> <value unit="" xsi:type="PQ" value="NEGATIVE" /> <referenceRange> <observationRange> <text>NEGATIVE</text> </observationRange> </ referenceRange> </observation> </component> <component> <observation moodCode="EVN" classCode="OBS"> <templateId root= "216.840.1.299530.01.08.22.4.2" /> <id nullFlavor="NA" /> < code codeSystem="local" code="PROTEIU" displayName="UA PROTEIN DIPSTICK" /> <statusCode code="completed" /> <effectiveTime value= "" /> <value unit="" xsi:type="PQ" value="NEGATIVE" /> <referenceRange> <observationRange> <text>NEGATIVE </text> </observationRange> </referenceRange> </ observation> </component> <component> <observation moodCode= "EVN" classCode="OBS"> <templateId root="16.840.1.101869.01.08.22.4.2 " /> <id nullFlavor="NA" /> <code codeSystem="local" code= "DGLUU" displayName="UA GLUCOSE DIPSTICK" /> <statusCode code= "completed" /> <effectiveTime value="" /> <value unit="" xsi:type="PQ" value="NEGATIVE" /> <referenceRange> < observationRange> <text>NEGATIVE</text> </ observationRange> </referenceRange> </observation> </ component> <component> <observation moodCode="EVN" classCode="OBS"> <templateId root="05.07.840.1.463864.10.4.2" /> <id nullFlavor="NA" /> <code codeSystem="local" code="KETONU" displayName= "UA KETONE DIPSTICK" /> <statusCode code="completed" /> < effectiveTime value="" /> <value unit="" xsi:type="PQ" value="NEGATIVE" /> <referenceRange> <observationRange> <text>NEGATIVE</text> </observationRange> </ referenceRange> </observation> </component> <component> <observation moodCode="EVN" classCode="OBS"> <templateId root= "216.840.1.352165.10..4.2" /> <id nullFlavor="NA" /> < code codeSystem="local" code="UROBILU" displayName="UA UROBILINOGEN DIPSTICK" / > <statusCode code="completed" /> <effectiveTime value= "" /> <value unit="" xsi:type="PQ" value="NORMAL" /> <referenceRange> <observationRange> <text>NORMAL</ text> </observationRange> </referenceRange> </ observation> </component> <component> <observation moodCode= "EVN" classCode="OBS"> <templateId root="05.07.840.1.022250.01.08.22.4.2 " /> <id nullFlavor="NA" /> <code codeSystem="local" code= "BILU" displayName="UA BILIRUBIN DIPSTICK" /> <statusCode code= "completed" /> <effectiveTime value="" /> <value unit="" xsi:type="PQ" value="NEGATIVE" /> <referenceRange> < observationRange> <text>NEGATIVE</text> </ observationRange> </referenceRange> </observation> </ component> <component> <observation moodCode="EVN" classCode="OBS"> <templateId root="05.07.840.1.762592.10.4.2" /> <id nullFlavor="NA" /> <code codeSystem="local" code="BREANNA" displayName="UA BLOOD DIPSTICK" /> <statusCode code="completed" /> < effectiveTime value="" /> <value unit="" xsi:type="PQ" value="1+" /> <interpretationCode codeSystem="local" code="*" /> <referenceRange> <observationRange> <text>NEGATIVE</ text> </observationRange> </referenceRange> </ observation> </component> <component> <observation moodCode= "EVN" classCode="OBS"> <templateId root="05.07.840.1.365188.10.4.2 " /> <id nullFlavor="NA" /> <code codeSystem="local" code= "SPGRU" displayName="UA SPECIFIC GRAVITY" /> <statusCode code= "completed" /> <effectiveTime value="" /> <value unit="" xsi:type="PQ" value=">=1.030" /> <interpretationCode codeSystem="local" code="*" /> <referenceRange> < observationRange> <text>1.015-1.025</text> </ observationRange> </referenceRange> </observation> </ component> <component> <observation moodCode="EVN" classCode="OBS"> <templateId root="16.840.1.279323.10.4.2" /> <id nullFlavor="NA" /> <code codeSystem="local" code="CLOVER" displayName="UR PH" /> <statusCode code="completed" /> <effectiveTime value= "" /> <value unit="" xsi:type="PQ" value="5.5" /> <referenceRange> <observationRange> <text>5.0-7.0</text > </observationRange> </referenceRange> </observation > </component> </organizer> </entry> <entry> <organizer moodCode= "EVN" classCode="BATTERY"> <templateId root="840.1.136691.10..22.4.1 " /> <id nullFlavor="NA" /> <code codeSystem="local" code="UAMICRO" displayName="UA MICROSCOPIC" /> <statusCode code="completed" /> < component> <observation moodCode="EVN" classCode="OBS"> < templateId root="05.07.840.1.134886.01.08.22.4.2" /> <id nullFlavor="NA " /> <code codeSystem="local" code="BACU" displayName="UA BACTERIA" /> <statusCode code="completed" /> <effectiveTime value= "" /> <value unit="" xsi:type="PQ" value="1+" /> < interpretationCode codeSystem="local" code="*" /> <referenceRange> <observationRange> <text>NEGATIVE</text> </ observationRange> </referenceRange> </observation> </ component> <component> <observation moodCode="EVN" classCode="OBS"> <templateId root="05.07.840.1.282359.01.08.22.4.2" /> <id nullFlavor="NA" /> <code codeSystem="local" code="EPIU" displayName=" UA EPITHELIAL CELLS" /> <statusCode code="completed" /> < effectiveTime value="" /> <value unit="epi/hpf" xsi:type= "PQ" value="3+" /> <interpretationCode codeSystem="local" code="*" /> <referenceRange> <observationRange> <text>0 - 1 +</text> </observationRange> </referenceRange> </ observation> </component> <component> <observation moodCode= "EVN" classCode="OBS"> <templateId root="05.07.840.1.958437.01.08.22.4.2 " /> <id nullFlavor="NA" /> <code codeSystem="local" code= "MUCUSU" displayName="UA MUCUS" /> <statusCode code="completed" /> <effectiveTime value="" /> <value unit="" xsi:type= "PQ" value="3+" /> <interpretationCode codeSystem="local" code="*" /> <referenceRange> <observationRange> <text>NEG TO 1+</text> </observationRange> </referenceRange> </ observation> </component> <component> <observation moodCode= "EVN" classCode="OBS"> <templateId root="2.16.840.1.972078.01.08.224.2 " /> <id nullFlavor="NA" /> <code codeSystem="local" code= "RBCU" displayName="UA RBC" /> <statusCode code="completed" /> <effectiveTime value="" /> <value unit="rbc/hpf" xsi:type ="PQ" value="3-5" /> <interpretationCode codeSystem="local" code="*" / > <referenceRange> <observationRange> <text>0 - 3</text> </observationRange> </referenceRange> </ observation> </component> <component> <observation moodCode= "EVN" classCode="OBS"> <templateId root="2.16.840.1.754973.01.08.224.2 " /> <id nullFlavor="NA" /> <code codeSystem="local" code= "UAVOL" displayName="UA VOLUME FOR EXAM" /> <statusCode code="completed " /> <effectiveTime value="" /> <value unit="mL" xsi:type="PQ" value="12.0" /> <referenceRange> < observationRange> <text>(12mL STD)</text> </ observationRange> </referenceRange> </observation> </ component> <component> <observation moodCode="EVN" classCode="OBS"> <templateId root="2.16.840.1.445837.10..4.2" /> <id nullFlavor="NA" /> <code codeSystem="local" code="WBCU" displayName=" UA WBC" /> <statusCode code="completed" /> <effectiveTime value="[id number]" /> <value unit="wbc/hpf" xsi:type="PQ" value="20- 50" /> <interpretationCode codeSystem="local" code="*" /> < referenceRange> <observationRange> <text>0 - 5</text> </observationRange> </referenceRange> </observation> </component> </organizer> </entry> <entry> <organizer moodCode="EVN " classCode="BATTERY"> <templateId root="2.16.840.1.848569.10..22.4.1" / > <id nullFlavor="NA" /> <code codeSystem="local" code="PREGU" displayName="UR TEST" /> <statusCode code="completed" /> < component> <observation moodCode="EVN" classCode="OBS"> < templateId root="2.16.840.1.225200.10...4.2" /> <id nullFlavor="NA " /> <code codeSystem="local" code="PREGU" displayName="UR TEST" /> <statusCode code="completed" /> <effectiveTime value= "[id number]" /> <value unit="" xsi:type="PQ" value="NEGATIVE" /> <referenceRange> <observationRange> <text>NEGATIVE </text> </observationRange> </referenceRange> </ observation> </component> </organizer> </entry> <entry> <organizer moodCode="EVN" classCode="BATTERY"> <templateId root= "2.16.840.1.984939.10..22.4.1" /> <id nullFlavor="NA" /> <code codeSystem="local" code="DRUGAB" displayName="UR DRUGS OF ABUSE SCREEN" /> <statusCode code="completed" /> <component> <observation moodCode= "EVN" classCode="OBS"> <templateId root="2.16.840.1.235957.10..22.4.2 " /> <id nullFlavor="NA" /> <code codeSystem="local" code= "AMPHU" displayName="UR AMPHETAMINES SCREEN" /> <statusCode code= "completed" /> <effectiveTime value="" /> <value unit="" xsi:type="PQ" value="NEG (<1000 ng/mL)" /> <referenceRange > <observationRange> <text>NEGATIVE</text> </ observationRange> </referenceRange> </observation> </ component> <component> <observation moodCode="EVN" classCode="OBS"> <templateId root="2.16.840.1.020840.10..22.4.2" /> <id nullFlavor="NA" /> <code codeSystem="local" code="BARBU" displayName= "UR BARBITURATE SCREEN" /> <statusCode code="completed" /> < effectiveTime value="" /> <value unit="" xsi:type="PQ" value="NEG (< 200 ng/mL)" /> <referenceRange> < observationRange> <text>NEGATIVE</text> </ observationRange> </referenceRange> </observation> </ component> <component> <observation moodCode="EVN" classCode="OBS"> <templateId root="216.840.1.248350.22.4.2" /> <id nullFlavor="NA" /> <code codeSystem="local" code="DAUCOMMENT" displayName="DRUGS OF ABUSE SCREEN COMMENT" /> <statusCode code= "completed" /> <effectiveTime value="" /> <value unit="" xsi:type="PQ" value="" /> <referenceRange> < observationRange> <text /> </observationRange> </referenceRange> </observation> </component> <component> <observation moodCode="EVN" classCode="OBS"> <templateId root= "216.840.1.929821.01.08.22.4.2" /> <id nullFlavor="NA" /> < code codeSystem="local" code="OPIU" displayName="UR OPIATES SCREEN" /> <statusCode code="completed" /> <effectiveTime value="" /> <value unit="" xsi:type="PQ" value="NEG (< 300 ng/mL)" /> <referenceRange> <observationRange> <text>NEGATIVE</ text> </observationRange> </referenceRange> </ observation> </component> <component> <observation moodCode= "EVN" classCode="OBS"> <templateId root="216.840.1.703776...4.2 " /> <id nullFlavor="NA" /> <code codeSystem="local" code= "PCPU" displayName="UR PHENCYCLIDINE (PCP) SCREEN" /> <statusCode code= "completed" /> <effectiveTime value="" /> <value unit="" xsi:type="PQ" value="NEG (< 25 ng/mL)" /> <referenceRange > <observationRange> <text>NEGATIVE</text> </ observationRange> </referenceRange> </observation> </ component> <component> <observation moodCode="EVN" classCode="OBS"> <templateId root="[id number]" /> <id nullFlavor="NA" /> <code codeSystem="local" code="THCU" displayName=" UR CANNABINOIDS (THC) SCREEN" /> <statusCode code="completed" /> <effectiveTime value="" /> <value unit="" xsi:type="PQ " value="POS (> 50 ng/mL)" /> <interpretationCode codeSystem= "local" code="*" /> <referenceRange> <observationRange> <text>NEGATIVE</text> </observationRange> </ referenceRange> </observation> </component> <component> <observation moodCode="EVN" classCode="OBS"> <templateId root= "[id number]" /> <id nullFlavor="NA" /> < code codeSystem="local" code="COCAU" displayName="UR COCAINE METABOLITE SCREEN" /> <statusCode code="completed" /> <effectiveTime value= "" /> <value unit="" xsi:type="PQ" value="POS (> 300 ng /mL)" /> <interpretationCode codeSystem="local" code="*" /> < referenceRange> <observationRange> <text>NEGATIVE</text > </observationRange> </referenceRange> </observation > </component> <component> <observation moodCode="EVN" classCode="OBS"> <templateId root="[id number]" /> <id nullFlavor="NA" /> <code codeSystem="local" code="METHU" displayName="UR METHADONE SCREEN" /> <statusCode code="completed" /> <effectiveTime value="" /> <value unit="" xsi:type= "PQ" value="NEG (< 300 ng/mL)" /> <referenceRange> < observationRange> <text>NEGATIVE</text> </ observationRange> </referenceRange> </observation> </ component> <component> <observation moodCode="EVN" classCode="OBS"> <templateId root="[id number]" /> <id nullFlavor="NA" /> <code codeSystem="local" code="BENZU" displayName= "UR BENZODIAZEPINE SCREEN" /> <statusCode code="completed" /> <effectiveTime value="" /> <value unit="" xsi:type="PQ" value="NEG (< 200 ng/mL)" /> <referenceRange> < observationRange> <text>NEGATIVE</text> </ observationRange> </referenceRange> </observation> </ component> </organizer> </entry> <entry> <organizer moodCode="EVN" classCode="BATTERY"> <templateId root="[id number]" /> <id nullFlavor="NA" /> <code codeSystem="local" code="CHL" displayName ="CHLAMYDIA DNA BY PCR" /> <statusCode code="completed" /> <component > <observation moodCode="EVN" classCode="OBS"> <templateId root= "05.07.840.1.598884.10..4.2" /> <id nullFlavor="NA" /> < code codeSystem="local" code="MB" displayName="Microbiology" /> < statusCode code="completed" /> <effectiveTime value="" /> <value xsi:type="ST" value="<pre><b>CHLAMYDIA DNA BY PCR - GONORRHOEA DNA BY PCR</b> See BelowCHLAMYDIA DNA BY PCR(F) Franko Date/Time: 2015 19:31 Luly Date/Time: 02/03/2016 13:22SOURCE : URINESPEC DESC: [address] [id number] BelowGONORRHOEA DNA BY PCR(F) Franko Date/Time: 01/31/2016 19:31 Luly Date/Time: 02/03/2016 13:22SOURCE: URINESPEC DESC: [address] [address]</ pre>" /> <referenceRange> <observationRange> < text /> </observationRange> </referenceRange> </ observation> </component> </organizer> </entry> <entry> <organizer moodCode="EVN" classCode="BATTERY"> <templateId root= "2.16.840.1.183201.10.20.22.4.1" /> <id nullFlavor="NA" /> <code codeSystem="local" code="WET" displayName="WET MOUNT" /> <statusCode code= "completed" /> <component> <observation moodCode="EVN" classCode= "OBS"> <templateId root="2.16.840.1.769872.10.20.22.4.2" /> < id nullFlavor="NA" /> <code codeSystem="local" code="MB" displayName= "Microbiology" /> <statusCode code="completed" /> < effectiveTime value="[id number]" /> <value xsi:type="ST" value="<pre> <b>WET MOUNT</b> See Below: [facility] room 47 jkgWET MOUNT(F) Franko Date/Time: 01/31/2016 20:00 Luly Date/Time: 2015 21:01SOURCE: VAGINALSPEC DESC: CLUE CELLSNO CLUE CELLS SEENTRICHOMONASNO TRICHOMONAS SEENYEAST (Abnormal)MANY YEAST (Abnormal)[facility] [place] [address]</pre>" /> <referenceRange > <observationRange> <text /> </ observationRange> </referenceRange> </observation> </ component> </organizer> </entry> <entry> <organizer moodCode="EVN" classCode="BATTERY"> <templateId root="2.16.840.1.319728.10.20.22.4.1" /> <id nullFlavor="NA" /> <code codeSystem="local" code="GRAM" displayName="GRAM STAIN - CHLAMYDIA DNA BY PCR" /> <statusCode code= "completed" /> <component> <observation moodCode="EVN" classCode= "OBS"> <templateId root="2.16.840.1.519131.10.20.22.4.2" /> < id nullFlavor="NA" /> <code codeSystem="local" code="MB" displayName= "Microbiology" /> <statusCode code="completed" /> < effectiveTime value="[id number]" /> <value xsi:type="ST" value="<pre> <b>GRAM STAIN</b> See Below: [facility] jkgGRAM STAIN(F) Franko Date/Time: 01/31/2016 20:00 Luly Date/Time: 01/31/2016 21:03SOURCE: VAGINALSPEC DESC: GRAM STAINRARE NEUTROPHILSNO ORGANISMS SEEN RESEMBLING NEISSERIA GONORRHOEAEMANY GRAM POSITIVE BACILLI RESEMBLING LACTOBACILLUSPEMBINA COUNTY [facility] [facility] [place] [address]</ pre>" /> <referenceRange> <observationRange> < text /> </observationRange> </referenceRange> </ observation> </component> </organizer> </entry> <entry> <organizer moodCode="EVN" classCode="BATTERY"> <templateId root= "2.16.840.1.380342.10.20.22.4.1" /> <id nullFlavor="NA" /> <code codeSystem="local" code="iCHEM8" displayName="CHEM/HEM PROFILE-BEDSIDE" /> <statusCode code="completed" /> <component> <observation moodCode= "EVN" classCode="OBS"> <templateId root="16.840.1.104465.10.4.2 " /> <id nullFlavor="NA" /> <code codeSystem="local" code="K" displayName="POTASSIUM" /> <statusCode code="completed" /> < effectiveTime value="" /> <value unit="mmol/L" xsi:type="PQ " value="3.5" /> <referenceRange> <observationRange> <text>3.5-5.3</text> </observationRange> </ referenceRange> </observation> </component> <component> <observation moodCode="EVN" classCode="OBS"> <templateId root= "05.07.840.1.840953.10.4.2" /> <id nullFlavor="NA" /> < code codeSystem="local" code="CMETHOD" displayName="METHOD" /> < statusCode code="completed" /> <effectiveTime value="" /> <value unit="" xsi:type="PQ" value="Bedside" /> < referenceRange> <observationRange> <text /> < /observationRange> </referenceRange> </observation> </ component> <component> <observation moodCode="EVN" classCode="OBS"> <templateId root="05.07.840.1.236712.22.4.2" /> <id nullFlavor="NA" /> <code codeSystem="local" code="GAP" displayName= "ANION GAP" /> <statusCode code="completed" /> <effectiveTime value="" /> <value unit="mmol/L" xsi:type="PQ" value="0" / > <interpretationCode codeSystem="local" code="*" /> < referenceRange> <observationRange> <text>10-20</text> </observationRange> </referenceRange> </observation> </component> <component> <observation moodCode="EVN" classCode= "OBS"> <templateId root="16.840.1.403204.10.22.4.2" /> < id nullFlavor="NA" /> <code codeSystem="local" code="HMETHOD" displayName="METHOD" /> <statusCode code="completed" /> < effectiveTime value="" /> <value unit="" xsi:type="PQ" value="Bedside" /> <referenceRange> <observationRange> <text /> </observationRange> </referenceRange> </observation> </component> <component> <observation moodCode="EVN" classCode="OBS"> <templateId root= "05.07.840.1.038209...4.2" /> <id nullFlavor="NA" /> < code codeSystem="local" code="GLU" displayName="GLUCOSE" /> < statusCode code="completed" /> <effectiveTime value="" /> <value unit="mg/dL" xsi:type="PQ" value="95" /> < referenceRange> <observationRange> <text>70-99</text> </observationRange> </referenceRange> </observation> </component> <component> <observation moodCode="EVN" classCode= "OBS"> <templateId root="16.840.1.730845.10.22.4.2" /> < id nullFlavor="NA" /> <code codeSystem="local" code="BUN" displayName= "BLOOD UREA NITROGEN" /> <statusCode code="completed" /> < effectiveTime value="" /> <value unit="mg/dL" xsi:type="PQ " value="16" /> <referenceRange> <observationRange> <text>7-20</text> </observationRange> </referenceRange > </observation> </component> <component> <observation moodCode="EVN" classCode="OBS"> <templateId root= "216.840.1.967411.10..22.4.2" /> <id nullFlavor="NA" /> < code codeSystem="local" code="CREAT" displayName="CREATININE" /> < statusCode code="completed" /> <effectiveTime value="" /> <value unit="mg/dL" xsi:type="PQ" value="0.8" /> < referenceRange> <observationRange> <text>0.6-1.0</text> </observationRange> </referenceRange> </observation > </component> <component> <observation moodCode="EVN" classCode="OBS"> <templateId root="216.840.1.981675.10..22.4.2" /> <id nullFlavor="NA" /> <code codeSystem="local" code="HGBT" displayName="HEMOGLOBIN" /> <statusCode code="completed" /> < effectiveTime value="961809991382" /> <value unit="gm/dL" xsi:type="PQ " value="12.6" /> <referenceRange> <observationRange> <text>12.0-16.0</text> </observationRange> </ referenceRange> </observation> </component> <component> <observation moodCode="EVN" classCode="OBS"> <templateId root= "216.840.1.620220.20.22.4.2" /> <id nullFlavor="NA" /> < code codeSystem="local" code="HCTT" displayName="HEMATOCRIT" /> < statusCode code="completed" /> <effectiveTime value="325248997980" /> <value unit="%" xsi:type="PQ" value="37.0" /> < referenceRange> <observationRange> <text>37.0-47.0</text > </observationRange> </referenceRange> </observation > </component> <component> <observation moodCode="EVN" classCode="OBS"> <templateId root="2.16.840.1.135924.10...4.2" /> <id nullFlavor="NA" /> <code codeSystem="local" code="NA" displayName="SODIUM" /> <statusCode code="completed" /> < effectiveTime value="" /> <value unit="mmol/L" xsi:type="PQ " value="141" /> <referenceRange> <observationRange> <text>135-148</text> </observationRange> </ referenceRange> </observation> </component> <component> <observation moodCode="EVN" classCode="OBS"> <templateId root= "2.16.840.1.724270.10...4.2" /> <id nullFlavor="NA" /> < code codeSystem="local" code="CL" displayName="CHLORIDE" /> < statusCode code="completed" /> <effectiveTime value="159822444371" /> <value unit="mmol/L" xsi:type="PQ" value="102" /> < referenceRange> <observationRange> <text>98-110</text> </observationRange> </referenceRange> </observation> </component> <component> <observation moodCode="EVN" classCode ="OBS"> <templateId root="840.1.434550.10..22.4.2" /> < id nullFlavor="NA" /> <code codeSystem="local" code="CO2" displayName= "CARBON DIOXIDE" /> <statusCode code="completed" /> < effectiveTime value="931121115078" /> <value unit="mmol/L" xsi:type="PQ " value="43" /> <interpretationCode codeSystem="local" code="*" /> <referenceRange> <observationRange> <text>21-32</ text> </observationRange> </referenceRange> </ observation> </component> <component> <observation moodCode= "EVN" classCode="OBS"> <templateId root="840.1.833454.01.08.22.4.2 " /> <id nullFlavor="NA" /> <code codeSystem="local" code= "CAION" displayName="CALCIUM IONIZED" /> <statusCode code="completed" / > <effectiveTime value="494011906641" /> <value unit="mg/dL" xsi:type="PQ" value="4.7" /> <referenceRange> < observationRange> <text>4.5-5.3</text> </ observationRange> </referenceRange> </observation> </ component> </organizer> </entry> <entry> <organizer moodCode="EVN" classCode="BATTERY"> <templateId root="840.1.501335.10..22.4.1" /> <id nullFlavor="NA" /> <code codeSystem="local" code="UA" displayName= "URINALYSIS, ROUTINE" /> <statusCode code="completed" /> <component> <observation moodCode="EVN" classCode="OBS"> <templateId root= "840.1.290048.10.4.2" /> <id nullFlavor="NA" /> < code codeSystem="local" code="LEUESU" displayName="UA LEUKOCYTE ESTERASE DIPSTICK" /> <statusCode code="completed" /> <effectiveTime value="" /> <value unit="" xsi:type="PQ" value="NEGATIVE" / > <referenceRange> <observationRange> <text> NEGATIVE</text> </observationRange> </referenceRange> </observation> </component> <component> <observation moodCode ="EVN" classCode="OBS"> <templateId root= "216.840.1.927497.01.08.22.4.2" /> <id nullFlavor="NA" /> < code codeSystem="local" code="NITRIU" displayName="UA NITRITE DIPSTICK" /> <statusCode code="completed" /> <effectiveTime value=" " /> <value unit="" xsi:type="PQ" value="NEGATIVE" /> < referenceRange> <observationRange> <text>NEGATIVE</text > </observationRange> </referenceRange> </observation > </component> <component> <observation moodCode="EVN" classCode="OBS"> <templateId root="216.840.1.079223.01.08.22.4.2" /> <id nullFlavor="NA" /> <code codeSystem="local" code="PROTEIU " displayName="UA PROTEIN DIPSTICK" /> <statusCode code="completed" /> <effectiveTime value="645289908775" /> <value unit="" xsi: type="PQ" value="1+" /> <interpretationCode codeSystem="local" code="* " /> <referenceRange> <observationRange> <text> NEGATIVE</text> </observationRange> </referenceRange> </observation> </component> <component> <observation moodCode ="EVN" classCode="OBS"> <templateId root= "216.840.1.503353.10...4.2" /> <id nullFlavor="NA" /> < code codeSystem="local" code="DGLUU" displayName="UA GLUCOSE DIPSTICK" /> <statusCode code="completed" /> <effectiveTime value=" " /> <value unit="" xsi:type="PQ" value="NEGATIVE" /> < referenceRange> <observationRange> <text>NEGATIVE</text > </observationRange> </referenceRange> </observation > </component> <component> <observation moodCode="EVN" classCode="OBS"> <templateId root="216.840.1.064583...4.2" /> <id nullFlavor="NA" /> <code codeSystem="local" code="KETONU" displayName="UA KETONE DIPSTICK" /> <statusCode code="completed" /> <effectiveTime value="" /> <value unit="" xsi:type= "PQ" value="1+" /> <interpretationCode codeSystem="local" code="*" /> <referenceRange> <observationRange> <text> NEGATIVE</text> </observationRange> </referenceRange> </observation> </component> <component> <observation moodCode ="EVN" classCode="OBS"> <templateId root= "2.16.840.1.754462.10..4.2" /> <id nullFlavor="NA" /> < code codeSystem="local" code="UROBILU" displayName="UA UROBILINOGEN DIPSTICK" / > <statusCode code="completed" /> <effectiveTime value= "" /> <value unit="" xsi:type="PQ" value="NORMAL" /> <referenceRange> <observationRange> <text>NORMAL</ text> </observationRange> </referenceRange> </ observation> </component> <component> <observation moodCode= "EVN" classCode="OBS"> <templateId root="216.840.1.410335.10...4.2 " /> <id nullFlavor="NA" /> <code codeSystem="local" code= "BILU" displayName="UA BILIRUBIN DIPSTICK" /> <statusCode code= "completed" /> <effectiveTime value="067523255359" /> <value unit="" xsi:type="PQ" value="1+" /> <interpretationCode codeSystem= "local" code="*" /> <referenceRange> <observationRange> <text>NEGATIVE</text> </observationRange> </ referenceRange> </observation> </component> <component> <observation moodCode="EVN" classCode="OBS"> <templateId root= "05.07.840.1.532418.01.08.22.4.2" /> <id nullFlavor="NA" /> < code codeSystem="local" code="BREANNA" displayName="UA BLOOD DIPSTICK" /> < statusCode code="completed" /> <effectiveTime value="768052898967" /> <value unit="" xsi:type="PQ" value="NEGATIVE" /> < referenceRange> <observationRange> <text>NEGATIVE</text > </observationRange> </referenceRange> </observation > </component> <component> <observation moodCode="EVN" classCode="OBS"> <templateId root="16.840.1.396845.10..4.2" /> <id nullFlavor="NA" /> <code codeSystem="local" code="SPGRU" displayName="UA SPECIFIC GRAVITY" /> <statusCode code="completed" /> <effectiveTime value="647624322244" /> <value unit="" xsi:type= "PQ" value=">=1.030" /> <interpretationCode codeSystem="local" code= "*" /> <referenceRange> <observationRange> < text>1.015-1.025</text> </observationRange> </referenceRange > </observation> </component> <component> <observation moodCode="EVN" classCode="OBS"> <templateId root= "05.07.840.1.086349.01.08.22.4.2" /> <id nullFlavor="NA" /> < code codeSystem="local" code="CLOVER" displayName="UR PH" /> <statusCode code="completed" /> <effectiveTime value="128942071922" /> < value unit="" xsi:type="PQ" value="5.5" /> <referenceRange> <observationRange> <text>5.0-7.0</text> </ observationRange> </referenceRange> </observation> </ component> </organizer> </entry> <entry> <organizer moodCode="EVN" classCode="BATTERY"> <templateId root="05.07.840.1.879107.01.08.22.4.1" /> <id nullFlavor="NA" /> <code codeSystem="local" code="UAMICRO" displayName="UA MICROSCOPIC" /> <statusCode code="completed" /> < component> <observation moodCode="EVN" classCode="OBS"> < templateId root="05.07.840.1.090348.22.4.2" /> <id nullFlavor="NA " /> <code codeSystem="local" code="BACU" displayName="UA BACTERIA" /> <statusCode code="completed" /> <effectiveTime value= "156420263786" /> <value unit="" xsi:type="PQ" value="2+" /> < interpretationCode codeSystem="local" code="*" /> <referenceRange> <observationRange> <text>NEGATIVE</text> </ observationRange> </referenceRange> </observation> </ component> <component> <observation moodCode="EVN" classCode="OBS"> <templateId root="16.840.1.933330.01.08.22.4.2" /> <id nullFlavor="NA" /> <code codeSystem="local" code="EPIU" displayName=" UA EPITHELIAL CELLS" /> <statusCode code="completed" /> < effectiveTime value="916594606096" /> <value unit="epi/hpf" xsi:type= "PQ" value="1+" /> <referenceRange> <observationRange> <text>0 - 1+</text> </observationRange> </ referenceRange> </observation> </component> <component> <observation moodCode="EVN" classCode="OBS"> <templateId root= "05.07.840.1.972750.01.08.22.4.2" /> <id nullFlavor="NA" /> < code codeSystem="local" code="MUCUSU" displayName="UA MUCUS" /> < statusCode code="completed" /> <effectiveTime value="003400576865" /> <value unit="" xsi:type="PQ" value="4+" /> < interpretationCode codeSystem="local" code="*" /> <referenceRange> <observationRange> <text>NEG TO 1+</text> </ observationRange> </referenceRange> </observation> </ component> <component> <observation moodCode="EVN" classCode="OBS"> <templateId root="05.07.840.1.720494.01.08.22.4.2" /> <id nullFlavor="NA" /> <code codeSystem="local" code="RBCU" displayName=" UA RBC" /> <statusCode code="completed" /> <effectiveTime value="160056385244" /> <value unit="rbc/hpf" xsi:type="PQ" value="0-3 " /> <referenceRange> <observationRange> <text> 0 - 3</text> </observationRange> </referenceRange> </ observation> </component> <component> <observation moodCode= "EVN" classCode="OBS"> <templateId root="2.16.840.1.408841....4.2 " /> <id nullFlavor="NA" /> <code codeSystem="local" code= "UAVOL" displayName="UA VOLUME FOR EXAM" /> <statusCode code="completed " /> <effectiveTime value="561113089877" /> <value unit="mL" xsi:type="PQ" value="12.0" /> <referenceRange> < observationRange> <text>(12mL STD)</text> </ observationRange> </referenceRange> </observation> </ component> <component> <observation moodCode="EVN" classCode="OBS"> <templateId root="2.16.840.1.502103.10..22.4.2" /> <id nullFlavor="NA" /> <code codeSystem="local" code="WBCU" displayName=" UA WBC" /> <statusCode code="completed" /> <effectiveTime value="740237936706" /> <value unit="wbc/hpf" xsi:type="PQ" value="2-5 " /> <referenceRange> <observationRange> <text> 0 - 5</text> </observationRange> </referenceRange> </ observation> </component> </organizer> </entry> <entry> <organizer moodCode="EVN" classCode="BATTERY"> <templateId root= "216.840.1.721660.10..22.4.1" /> <id nullFlavor="NA" /> <code codeSystem="local" code="PREGU" displayName="UR TEST" /> < statusCode code="completed" /> <component> <observation moodCode= "EVN" classCode="OBS"> <templateId root="16.840.1.005342.10..4.2 " /> <id nullFlavor="NA" /> <code codeSystem="local" code= "PREGU" displayName="UR TEST" /> <statusCode code="completed " /> <effectiveTime value="017377489275" /> <value unit="" xsi :type="PQ" value="NEGATIVE" /> <referenceRange> < observationRange> <text>NEGATIVE</text> </ observationRange> </referenceRange> </observation> </ component> </organizer> </entry> <entry> <organizer moodCode="EVN" classCode="BATTERY"> <templateId root="16.840.1.238515...4.1" /> <id nullFlavor="NA" /> <code codeSystem="local" code="UA" displayName= "URINALYSIS, ROUTINE" /> <statusCode code="completed" /> <component> <observation moodCode="EVN" classCode="OBS"> <templateId root= "216.840.1.644815.10...4.2" /> <id nullFlavor="NA" /> < code codeSystem="local" code="LEUESU" displayName="UA LEUKOCYTE ESTERASE DIPSTICK" /> <statusCode code="completed" /> <effectiveTime value="267043959926" /> <value unit="" xsi:type="PQ" value="NEGATIVE" / > <referenceRange> <observationRange> <text> NEGATIVE</text> </observationRange> </referenceRange> </observation> </component> <component> <observation moodCode ="EVN" classCode="OBS"> <templateId root= "05.07.840.1.122169.10...4.2" /> <id nullFlavor="NA" /> < code codeSystem="local" code="NITRIU" displayName="UA NITRITE DIPSTICK" /> <statusCode code="completed" /> <effectiveTime value="953818786862 " /> <value unit="" xsi:type="PQ" value="NEGATIVE" /> < referenceRange> <observationRange> <text>NEGATIVE</text > </observationRange> </referenceRange> </observation > </component> <component> <observation moodCode="EVN" classCode="OBS"> <templateId root="840.1.652790.10...4.2" /> <id nullFlavor="NA" /> <code codeSystem="local" code="PROTEIU " displayName="UA PROTEIN DIPSTICK" /> <statusCode code="completed" /> <effectiveTime value="319706428767" /> <value unit="" xsi: type="PQ" value="1+" /> <interpretationCode codeSystem="local" code="* " /> <referenceRange> <observationRange> <text> NEGATIVE</text> </observationRange> </referenceRange> </observation> </component> <component> <observation moodCode ="EVN" classCode="OBS"> <templateId root= "05.07.840.1.653984.10..22.4.2" /> <id nullFlavor="NA" /> < code codeSystem="local" code="DGLUU" displayName="UA GLUCOSE DIPSTICK" /> <statusCode code="completed" /> <effectiveTime value="650156333668 " /> <value unit="" xsi:type="PQ" value="NEGATIVE" /> < referenceRange> <observationRange> <text>NEGATIVE</text > </observationRange> </referenceRange> </observation > </component> <component> <observation moodCode="EVN" classCode="OBS"> <templateId root="16.840.1.023462.10..22.4.2" /> <id nullFlavor="NA" /> <code codeSystem="local" code="KETONU" displayName="UA KETONE DIPSTICK" /> <statusCode code="completed" /> <effectiveTime value="702368709486" /> <value unit="" xsi:type= "PQ" value="TRACE" /> <interpretationCode codeSystem="local" code="*" / > <referenceRange> <observationRange> <text> NEGATIVE</text> </observationRange> </referenceRange> </observation> </component> <component> <observation moodCode ="EVN" classCode="OBS"> <templateId root= "05.07.840.1.228231.10..22.4.2" /> <id nullFlavor="NA" /> < code codeSystem="local" code="UROBILU" displayName="UA UROBILINOGEN DIPSTICK" / > <statusCode code="completed" /> <effectiveTime value= "742780994910" /> <value unit="" xsi:type="PQ" value="NORMAL" /> <referenceRange> <observationRange> <text>NORMAL</ text> </observationRange> </referenceRange> </ observation> </component> <component> <observation moodCode= "EVN" classCode="OBS"> <templateId root="05.07.840.1.767893.10..22.4.2 " /> <id nullFlavor="NA" /> <code codeSystem="local" code= "BILU" displayName="UA BILIRUBIN DIPSTICK" /> <statusCode code= "completed" /> <effectiveTime value="921941448397" /> <value unit="" xsi:type="PQ" value="1+" /> <interpretationCode codeSystem= "local" code="*" /> <referenceRange> <observationRange> <text>NEGATIVE</text> </observationRange> </ referenceRange> </observation> </component> <component> <observation moodCode="EVN" classCode="OBS"> <templateId root= "216.840.1.804289.10..4.2" /> <id nullFlavor="NA" /> < code codeSystem="local" code="BREANNA" displayName="UA BLOOD DIPSTICK" /> < statusCode code="completed" /> <effectiveTime value="267363276435" /> <value unit="" xsi:type="PQ" value="NEGATIVE" /> < referenceRange> <observationRange> <text>NEGATIVE</text > </observationRange> </referenceRange> </observation > </component> <component> <observation moodCode="EVN" classCode="OBS"> <templateId root="16.840.1.137678.10..22.4.2" /> <id nullFlavor="NA" /> <code codeSystem="local" code="SPGRU" displayName="UA SPECIFIC GRAVITY" /> <statusCode code="completed" /> <effectiveTime value="417942611214" /> <value unit="" xsi:type= "PQ" value=">=1.030" /> <interpretationCode codeSystem="local" code= "*" /> <referenceRange> <observationRange> < text>1.015-1.025</text> </observationRange> </referenceRange > </observation> </component> <component> <observation moodCode="EVN" classCode="OBS"> <templateId root= "16.840.1.920269.10.2022.4.2" /> <id nullFlavor="NA" /> < code codeSystem="local" code="CLOVER" displayName="UR PH" /> <statusCode code="completed" /> <effectiveTime value="382193498420" /> < value unit="" xsi:type="PQ" value="5.5" /> <referenceRange> <observationRange> <text>5.0-7.0</text> </ observationRange> </referenceRange> </observation> </ component> </organizer> </entry> <entry> <organizer moodCode="EVN" classCode="BATTERY"> <templateId root="05.07.840.1.287873..22.4.1" /> <id nullFlavor="NA" /> <code codeSystem="local" code="UAMICRO" displayName="UA MICROSCOPIC" /> <statusCode code="completed" /> < component> <observation moodCode="EVN" classCode="OBS"> < templateId root="05.07.840.1.457969.102022.4.2" /> <id nullFlavor="NA " /> <code codeSystem="local" code="BACU" displayName="UA BACTERIA" /> <statusCode code="completed" /> <effectiveTime value= "613127794141" /> <value unit="" xsi:type="PQ" value="2+" /> < interpretationCode codeSystem="local" code="*" /> <referenceRange> <observationRange> <text>NEGATIVE</text> </ observationRange> </referenceRange> </observation> </ component> <component> <observation moodCode="EVN" classCode="OBS"> <templateId root="05.07.840.1.849646.10.4.2" /> <id nullFlavor="NA" /> <code codeSystem="local" code="EPIU" displayName=" UA EPITHELIAL CELLS" /> <statusCode code="completed" /> < effectiveTime value="494370607078" /> <value unit="epi/hpf" xsi:type= "PQ" value="2+" /> <interpretationCode codeSystem="local" code="*" /> <referenceRange> <observationRange> <text>0 - 1 +</text> </observationRange> </referenceRange> </ observation> </component> <component> <observation moodCode= "EVN" classCode="OBS"> <templateId root="840.1.724736.01.08.22.4.2 " /> <id nullFlavor="NA" /> <code codeSystem="local" code= "MUCUSU" displayName="UA MUCUS" /> <statusCode code="completed" /> <effectiveTime value="683701681400" /> <value unit="" xsi:type= "PQ" value="3+" /> <interpretationCode codeSystem="local" code="*" /> <referenceRange> <observationRange> <text>NEG TO 1+</text> </observationRange> </referenceRange> </ observation> </component> <component> <observation moodCode= "EVN" classCode="OBS"> <templateId root="05.07.840.1.372899.01.08.22.4.2 " /> <id nullFlavor="NA" /> <code codeSystem="local" code= "RBCU" displayName="UA RBC" /> <statusCode code="completed" /> <effectiveTime value="314290984608" /> <value unit="rbc/hpf" xsi:type ="PQ" value="0" /> <referenceRange> <observationRange> <text>0 - 3</text> </observationRange> </ referenceRange> </observation> </component> <component> <observation moodCode="EVN" classCode="OBS"> <templateId root= "2.16.840.1.952116.10..4.2" /> <id nullFlavor="NA" /> < code codeSystem="local" code="UAVOL" displayName="UA VOLUME FOR EXAM" /> <statusCode code="completed" /> <effectiveTime value="056574471165" /> <value unit="mL" xsi:type="PQ" value="12.0" /> < referenceRange> <observationRange> <text>(12mL STD)</ text> </observationRange> </referenceRange> </ observation> </component> <component> <observation moodCode= "EVN" classCode="OBS"> <templateId root="2.16.840.1.933470.10...4.2 " /> <id nullFlavor="NA" /> <code codeSystem="local" code= "WBCU" displayName="UA WBC" /> <statusCode code="completed" /> <effectiveTime value="623052475041" /> <value unit="wbc/hpf" xsi:type ="PQ" value="0-1" /> <referenceRange> <observationRange> <text>0 - 5</text> </observationRange> </ referenceRange> </observation> </component> </organizer> </entry > <entry> <organizer moodCode="EVN" classCode="BATTERY"> <templateId root="2.16.840.1.791509.10..4.1" /> <id nullFlavor="NA" /> <code codeSystem="local" code="PREGU" displayName="UR TEST" /> < statusCode code="completed" /> <component> <observation moodCode= "EVN" classCode="OBS"> <templateId root="216.840.1.233573.10.4.2 " /> <id nullFlavor="NA" /> <code codeSystem="local" code= "PREGU" displayName="UR TEST" /> <statusCode code="completed " /> <effectiveTime value="291419572442" /> <value unit="" xsi :type="PQ" value="NEGATIVE" /> <referenceRange> < observationRange> <text>NEGATIVE</text> </ observationRange> </referenceRange> </observation> </ component> </organizer> </entry> <entry> <organizer moodCode="EVN" classCode="BATTERY"> <templateId root="16.840.1.596103.01.08.22.4.1" /> <id nullFlavor="NA" /> <code codeSystem="local" code="DRUGAB" displayName="UR DRUGS OF ABUSE SCREEN" /> <statusCode code="completed" /> <component> <observation moodCode="EVN" classCode="OBS"> < templateId root="16.840.1.253062.01.08.22.4.2" /> <id nullFlavor="NA " /> <code codeSystem="local" code="AMPHU" displayName="UR AMPHETAMINES SCREEN" /> <statusCode code="completed" /> < effectiveTime value="268400398699" /> <value unit="" xsi:type="PQ" value="NEG (<1000 ng/mL)" /> <referenceRange> < observationRange> <text>NEGATIVE</text> </ observationRange> </referenceRange> </observation> </ component> <component> <observation moodCode="EVN" classCode="OBS"> <templateId root="216.840.1.512245.10..4.2" /> <id nullFlavor="NA" /> <code codeSystem="local" code="BARBU" displayName= "UR BARBITURATE SCREEN" /> <statusCode code="completed" /> < effectiveTime value="" /> <value unit="" xsi:type="PQ" value="NEG (< 200 ng/mL)" /> <referenceRange> < observationRange> <text>NEGATIVE</text> </ observationRange> </referenceRange> </observation> </ component> <component> <observation moodCode="EVN" classCode="OBS"> <templateId root="216.840.1.985993.01.08.22.4.2" /> <id nullFlavor="NA" /> <code codeSystem="local" code="DAUCOMMENT" displayName="DRUGS OF ABUSE SCREEN COMMENT" /> <statusCode code= "completed" /> <effectiveTime value="" /> <value unit="" xsi:type="PQ" value="" /> <referenceRange> < observationRange> <text /> </observationRange> </referenceRange> </observation> </component> <component> <observation moodCode="EVN" classCode="OBS"> <templateId root= "2.16.840.1.519539.10..4.2" /> <id nullFlavor="NA" /> < code codeSystem="local" code="OPIU" displayName="UR OPIATES SCREEN" /> <statusCode code="completed" /> <effectiveTime value="" /> <value unit="" xsi:type="PQ" value="NEG (< 300 ng/mL)" /> <referenceRange> <observationRange> <text>NEGATIVE</ text> </observationRange> </referenceRange> </ observation> </component> <component> <observation moodCode= "EVN" classCode="OBS"> <templateId root="216.840.1.456058.10.20.22.4.2 " /> <id nullFlavor="NA" /> <code codeSystem="local" code= "PCPU" displayName="UR PHENCYCLIDINE (PCP) SCREEN" /> <statusCode code= "completed" /> <effectiveTime value="098341639306" /> <value unit="" xsi:type="PQ" value="NEG (< 25 ng/mL)" /> <referenceRange > <observationRange> <text>NEGATIVE</text> </ observationRange> </referenceRange> </observation> </ component> <component> <observation moodCode="EVN" classCode="OBS"> <templateId root="2.16.840.1.243460.10...4.2" /> <id nullFlavor="NA" /> <code codeSystem="local" code="THCU" displayName=" UR CANNABINOIDS (THC) SCREEN" /> <statusCode code="completed" /> <effectiveTime value="174724093949" /> <value unit="" xsi:type="PQ " value="POS (> 50 ng/mL)" /> <interpretationCode codeSystem= "local" code="*" /> <referenceRange> <observationRange> <text>NEGATIVE</text> </observationRange> </ referenceRange> </observation> </component> <component> <observation moodCode="EVN" classCode="OBS"> <templateId root= "2.16.840.1.925324.10..22.4.2" /> <id nullFlavor="NA" /> < code codeSystem="local" code="COCAU" displayName="UR COCAINE METABOLITE SCREEN" /> <statusCode code="completed" /> <effectiveTime value= "" /> <value unit="" xsi:type="PQ" value="NEG (< 300 ng /mL)" /> <referenceRange> <observationRange> < text>NEGATIVE</text> </observationRange> </referenceRange> </observation> </component> <component> <observation moodCode="EVN" classCode="OBS"> <templateId root= "2.16.840.1.120723.10..22.4.2" /> <id nullFlavor="NA" /> < code codeSystem="local" code="METHU" displayName="UR METHADONE SCREEN" /> <statusCode code="completed" /> <effectiveTime value=" " /> <value unit="" xsi:type="PQ" value="NEG (< 300 ng/mL)" /> <referenceRange> <observationRange> <text>NEGATIVE </text> </observationRange> </referenceRange> </ observation> </component> <component> <observation moodCode= "EVN" classCode="OBS"> <templateId root="2.16.840.1.346193.10..22.4.2 " /> <id nullFlavor="NA" /> <code codeSystem="local" code= "BENZU" displayName="UR BENZODIAZEPINE SCREEN" /> <statusCode code= "completed" /> <effectiveTime value="" /> <value unit="" xsi:type="PQ" value="NEG (< 200 ng/mL)" /> <referenceRange > <observationRange> <text>NEGATIVE</text> </ observationRange> </referenceRange> </observation> </ component> </organizer> </entry> <entry> <organizer moodCode="EVN" classCode="BATTERY"> <templateId root="216.840.1.778081.10...4.1" /> <id nullFlavor="NA" /> <code codeSystem="local" code="CBCD" displayName="CBC W/DIFF" /> <statusCode code="completed" /> <component > <observation moodCode="EVN" classCode="OBS"> <templateId root= "16.840.1.629938.10...4.2" /> <id nullFlavor="NA" /> < code codeSystem="local" code="EO#" displayName="EOSINOPHIL #" /> < statusCode code="completed" /> <effectiveTime value="353653313613" /> <value unit="k/cumm" xsi:type="PQ" value="0.1" /> < referenceRange> <observationRange> <text>0.1-0.5</text> </observationRange> </referenceRange> </observation > </component> <component> <observation moodCode="EVN" classCode="OBS"> <templateId root="216.840.1.801260.10..4.2" /> <id nullFlavor="NA" /> <code codeSystem="local" code="EO% " displayName="EOSINOPHIL %" /> <statusCode code="completed" /> <effectiveTime value="709685681843" /> <value unit="%" xsi: type="PQ" value="2" /> <referenceRange> <observationRange> <text>2-4</text> </observationRange> </ referenceRange> </observation> </component> <component> <observation moodCode="EVN" classCode="OBS"> <templateId root= "216.840.1.406712.01.08.22.4.2" /> <id nullFlavor="NA" /> < code codeSystem="local" code="GR#" displayName="GRANULOCYTE #" /> < statusCode code="completed" /> <effectiveTime value="555915023900" /> <value unit="k/cumm" xsi:type="PQ" value="3.6" /> < referenceRange> <observationRange> <text>2.0-9.0</text> </observationRange> </referenceRange> </observation > </component> <component> <observation moodCode="EVN" classCode="OBS"> <templateId root="05.07.840.1.614014.01.08.224.2" /> <id nullFlavor="NA" /> <code codeSystem="local" code="GR% " displayName="GRANULOCYTE %" /> <statusCode code="completed" /> <effectiveTime value="258831624651" /> <value unit="%" xsi: type="PQ" value="57" /> <referenceRange> <observationRange> <text>50-75</text> </observationRange> </ referenceRange> </observation> </component> <component> <observation moodCode="EVN" classCode="OBS"> <templateId root= "05.07.840.1.968087.104.2" /> <id nullFlavor="NA" /> < code codeSystem="local" code="LY#" displayName="LYMPHOCYTE #" /> < statusCode code="completed" /> <effectiveTime value="445852776453" /> <value unit="k/cumm" xsi:type="PQ" value="2.2" /> < referenceRange> <observationRange> <text>1.0-4.0</text> </observationRange> </referenceRange> </observation > </component> <component> <observation moodCode="EVN" classCode="OBS"> <templateId root="216.840.1.226608.10..4.2" /> <id nullFlavor="NA" /> <code codeSystem="local" code="LY% " displayName="LYMPHOCYTE %" /> <statusCode code="completed" /> <effectiveTime value="156573460304" /> <value unit="%" xsi: type="PQ" value="34" /> <interpretationCode codeSystem="local" code="* " /> <referenceRange> <observationRange> <text> 20-30</text> </observationRange> </referenceRange> </ observation> </component> <component> <observation moodCode= "EVN" classCode="OBS"> <templateId root="2.840.1.366532.01.08.224.2 " /> <id nullFlavor="NA" /> <code codeSystem="local" code="MCH " displayName="MEAN CELL HGB" /> <statusCode code="completed" /> <effectiveTime value="356136960711" /> <value unit="pg" xsi:type= "PQ" value="27.8" /> <referenceRange> <observationRange> <text>27.0-33.0</text> </observationRange> </ referenceRange> </observation> </component> <component> <observation moodCode="EVN" classCode="OBS"> <templateId root= "216.840.1.156049.1022.4.2" /> <id nullFlavor="NA" /> < code codeSystem="local" code="MCHC" displayName="MEAN CELL HGB CONCENTRATION" / > <statusCode code="completed" /> <effectiveTime value= "368250672588" /> <value unit="g/dL" xsi:type="PQ" value="32.9" /> <referenceRange> <observationRange> <text>32.0- 37.0</text> </observationRange> </referenceRange> </ observation> </component> <component> <observation moodCode= "EVN" classCode="OBS"> <templateId root="05.07.840.1.824515.10.22.4.2 " /> <id nullFlavor="NA" /> <code codeSystem="local" code="MCV " displayName="MEAN CELL VOLUME" /> <statusCode code="completed" /> <effectiveTime value="" /> <value unit="fl" xsi:type ="PQ" value="84.4" /> <referenceRange> <observationRange> <text>80.0-100.0</text> </observationRange> </ referenceRange> </observation> </component> <component> <observation moodCode="EVN" classCode="OBS"> <templateId root= "05.07.840.1.124017..22.4.2" /> <id nullFlavor="NA" /> < code codeSystem="local" code="MO#" displayName="MONOCYTE #" /> < statusCode code="completed" /> <effectiveTime value="549995356144" /> <value unit="k/cumm" xsi:type="PQ" value="0.4" /> < referenceRange> <observationRange> <text>0.1-1.0</text> </observationRange> </referenceRange> </observation > </component> <component> <observation moodCode="EVN" classCode="OBS"> <templateId root="16.840.1.242128.10.2022.4.2" /> <id nullFlavor="NA" /> <code codeSystem="local" code="MO% " displayName="MONOCYTE %" /> <statusCode code="completed" /> <effectiveTime value="309346774236" /> <value unit="%" xsi: type="PQ" value="7" /> <interpretationCode codeSystem="local" code="*" /> <referenceRange> <observationRange> <text>4- 6</text> </observationRange> </referenceRange> </ observation> </component> <component> <observation moodCode= "EVN" classCode="OBS"> <templateId root="2.16.840.1.642065.10..4.2 " /> <id nullFlavor="NA" /> <code codeSystem="local" code="RBC " displayName="RED BLOOD CELL" /> <statusCode code="completed" /> <effectiveTime value="525936938700" /> <value unit="m/cumm" xsi: type="PQ" value="4.68" /> <referenceRange> <observationRange > <text>4.00-6.00</text> </observationRange> </ referenceRange> </observation> </component> <component> <observation moodCode="EVN" classCode="OBS"> <templateId root= "2.16.840.1.610416.102022.4.2" /> <id nullFlavor="NA" /> < code codeSystem="local" code="RDW" displayName="RED CELL DISTRIBUTION WIDTH" /> <statusCode code="completed" /> <effectiveTime value= "207796459076" /> <value unit="%" xsi:type="PQ" value="13.0" /> <referenceRange> <observationRange> <text>11.0- 15.6</text> </observationRange> </referenceRange> </ observation> </component> <component> <observation moodCode= "EVN" classCode="OBS"> <templateId root="216.840.1.885489.10.22.4.2 " /> <id nullFlavor="NA" /> <code codeSystem="local" code="WBC " displayName="WHITE BLOOD CELL" /> <statusCode code="completed" /> <effectiveTime value="514528534753" /> <value unit="k/cumm" xsi: type="PQ" value="6.4" /> <referenceRange> <observationRange > <text>5.0-10.0</text> </observationRange> </ referenceRange> </observation> </component> <component> <observation moodCode="EVN" classCode="OBS"> <templateId root= "05.07.840.1.581177.01.08.22.4.2" /> <id nullFlavor="NA" /> < code codeSystem="local" code="HGBT" displayName="HEMOGLOBIN" /> < statusCode code="completed" /> <effectiveTime value="387931261378" /> <value unit="gm/dL" xsi:type="PQ" value="13.0" /> < referenceRange> <observationRange> <text>12.0-16.0</text > </observationRange> </referenceRange> </observation > </component> <component> <observation moodCode="EVN" classCode="OBS"> <templateId root="216.840.1.150852.10.2022.4.2" /> <id nullFlavor="NA" /> <code codeSystem="local" code="HCTT" displayName="HEMATOCRIT" /> <statusCode code="completed" /> < effectiveTime value="077243807352" /> <value unit="%" xsi:type="PQ " value="39.5" /> <referenceRange> <observationRange> <text>37.0-47.0</text> </observationRange> </ referenceRange> </observation> </component> <component> <observation moodCode="EVN" classCode="OBS"> <templateId root= "05.07.840.1.835710.10.20.22.4.2" /> <id nullFlavor="NA" /> < code codeSystem="local" code="PLT" displayName="PLATELET COUNT" /> < statusCode code="completed" /> <effectiveTime value="909886759775" /> <value unit="k/cumm" xsi:type="PQ" value="252" /> < referenceRange> <observationRange> <text>150-400</text> </observationRange> </referenceRange> </observation > </component> </organizer> </entry> <entry> <organizer moodCode= "EVN" classCode="BATTERY"> <templateId root="05.07.840.1.628241.10.22.4.1 " /> <id nullFlavor="NA" /> <code codeSystem="local" code="LIVER" displayName="HEPATIC FUNCTION PANEL" /> <statusCode code="completed" /> <component> <observation moodCode="EVN" classCode="OBS"> < templateId root="05.07.840.1.186706.10.20.22.4.2" /> <id nullFlavor="NA " /> <code codeSystem="local" code="BILUC" displayName="BILI UNCONJUGATED" /> <statusCode code="completed" /> < effectiveTime value="811982660606" /> <value unit="mg/dL" xsi:type="PQ " value="1.0" /> <interpretationCode codeSystem="local" code="*" /> <referenceRange> <observationRange> <text>0.0-0.7 </text> </observationRange> </referenceRange> </ observation> </component> <component> <observation moodCode= "EVN" classCode="OBS"> <templateId root="05.07.840.1.054690.10.20.22.4.2 " /> <id nullFlavor="NA" /> <code codeSystem="local" code="AST " displayName="AST/SGOT" /> <statusCode code="completed" /> < effectiveTime value="316926863947" /> <value unit="Units/L" xsi:type= "PQ" value="9" /> <interpretationCode codeSystem="local" code="*" /> <referenceRange> <observationRange> <text>10-37< /text> </observationRange> </referenceRange> </ observation> </component> <component> <observation moodCode= "EVN" classCode="OBS"> <templateId root="840.1.793434.10..4.2 " /> <id nullFlavor="NA" /> <code codeSystem="local" code="ALT " displayName="ALT/SGPT" /> <statusCode code="completed" /> < effectiveTime value="999002032572" /> <value unit="Units/L" xsi:type= "PQ" value="19" /> <referenceRange> <observationRange> <text>< 66</text> </observationRange> </ referenceRange> </observation> </component> <component> <observation moodCode="EVN" classCode="OBS"> <templateId root= "05.07.840.1.140990.10.20.22.4.2" /> <id nullFlavor="NA" /> < code codeSystem="local" code="TP" displayName="TOTAL PROTEIN" /> < statusCode code="completed" /> <effectiveTime value="809353965092" /> <value unit="gm/dL" xsi:type="PQ" value="7.1" /> < referenceRange> <observationRange> <text>6.4-8.2</text> </observationRange> </referenceRange> </observation > </component> <component> <observation moodCode="EVN" classCode="OBS"> <templateId root="216.840.1.079205.10..22.4.2" /> <id nullFlavor="NA" /> <code codeSystem="local" code="ALB" displayName="ALBUMIN" /> <statusCode code="completed" /> < effectiveTime value="310632330503" /> <value unit="gm/dL" xsi:type="PQ " value="3.8" /> <referenceRange> <observationRange> <text>3.4-5.0</text> </observationRange> </ referenceRange> </observation> </component> <component> <observation moodCode="EVN" classCode="OBS"> <templateId root= "16.840.1.707410.10..22.4.2" /> <id nullFlavor="NA" /> < code codeSystem="local" code="BILTOT" displayName="BILI TOTAL" /> < statusCode code="completed" /> <effectiveTime value="274856482415" /> <value unit="mg/dL" xsi:type="PQ" value="1.3" /> < interpretationCode codeSystem="local" code="*" /> <referenceRange> <observationRange> <text>0.0-1.0</text> </ observationRange> </referenceRange> </observation> </ component> <component> <observation moodCode="EVN" classCode="OBS"> <templateId root="05.07.840.1.560340.1022.4.2" /> <id nullFlavor="NA" /> <code codeSystem="local" code="ALKP" displayName= "ALKALINE PHOSPHATASE TOTAL" /> <statusCode code="completed" /> <effectiveTime value="934648536587" /> <value unit="IU/L" xsi:type= "PQ" value="60" /> <referenceRange> <observationRange> <text>45-117</text> </observationRange> </ referenceRange> </observation> </component> <component> <observation moodCode="EVN" classCode="OBS"> <templateId root= "840.1.268181.01.08.22.4.2" /> <id nullFlavor="NA" /> < code codeSystem="local" code="BILC" displayName="BILI CONJUGATED" /> < statusCode code="completed" /> <effectiveTime value="280838918951" /> <value unit="mg/dL" xsi:type="PQ" value="0.3" /> < referenceRange> <observationRange> <text>0.0-0.3</text> </observationRange> </referenceRange> </observation > </component> </organizer> </entry> <entry> <organizer moodCode= "EVN" classCode="BATTERY"> <templateId root="840.1.010097.1022.4.1 " /> <id nullFlavor="NA" /> <code codeSystem="local" code="MAG" displayName="MAGNESIUM" /> <statusCode code="completed" /> <component > <observation moodCode="EVN" classCode="OBS"> <templateId root= "840.1.806327.1022.4.2" /> <id nullFlavor="NA" /> < code codeSystem="local" code="MAG" displayName="MAGNESIUM" /> < statusCode code="completed" /> <effectiveTime value="261088268001" /> <value unit="mg/dL" xsi:type="PQ" value="2.2" /> < referenceRange> <observationRange> <text>1.8-2.4</text> </observationRange> </referenceRange> </observation > </component> </organizer> </entry> <entry> <organizer moodCode= "EVN" classCode="BATTERY"> <templateId root="16.840.1.952769.10..22.4.1 " /> <id nullFlavor="NA" /> <code codeSystem="local" code="TSH" displayName="THYROID STIM HORMONE (TSH)" /> <statusCode code="completed" / > <component> <observation moodCode="EVN" classCode="OBS"> <templateId root="16.840.1.816380.10..22.4.2" /> <id nullFlavor="NA " /> <code codeSystem="local" code="TSH" displayName="THYROID STIM HORMONE (TSH)" /> <statusCode code="completed" /> < effectiveTime value="836389879818" /> <value unit="uIU/mL" xsi:type="PQ " value="0.82" /> <referenceRange> <observationRange> <text>0.46-4.13</text> </observationRange> </ referenceRange> </observation> </component> </organizer> </entry > <entry> <organizer moodCode="EVN" classCode="BATTERY"> <templateId root="05.07.840.1.163749.10.20.22.4.1" /> <id nullFlavor="NA" /> <code codeSystem="local" code="LIP" displayName="LIPASE" /> <statusCode code= "completed" /> <component> <observation moodCode="EVN" classCode= "OBS"> <templateId root="216.840.1.714022.10...4.2" /> < id nullFlavor="NA" /> <code codeSystem="local" code="LIP" displayName= "LIPASE" /> <statusCode code="completed" /> <effectiveTime value="380506461952" /> <value unit="Units/L" xsi:type="PQ" value="180 " /> <referenceRange> <observationRange> <text> 73-393</text> </observationRange> </referenceRange> < /observation> </component> </organizer> </entry> <entry> < organizer moodCode="EVN" classCode="BATTERY"> <templateId root= "16.840.1.854434.10..22.4.1" /> <id nullFlavor="NA" /> <code codeSystem="local" code="PREALB" displayName="PREALBUMIN" /> <statusCode code="completed" /> <component> <observation moodCode="EVN" classCode="OBS"> <templateId root="216.840.1.955870.10..22.4.2" /> <id nullFlavor="NA" /> <code codeSystem="local" code="PREALB" displayName="PREALBUMIN" /> <statusCode code="completed" /> < effectiveTime value="282917890869" /> <value unit="mg/dL" xsi:type="PQ " value="24" /> <referenceRange> <observationRange> <text>20-40</text> </observationRange> </ referenceRange> </observation> </component> </organizer> </entry > <entry> <organizer moodCode="EVN" classCode="BATTERY"> <templateId root="05.07.840.1.994755.10..22.4.1" /> <id nullFlavor="NA" /> <code codeSystem="local" code="iCHEM8" displayName="CHEM/HEM PROFILE-BEDSIDE" /> <statusCode code="completed" /> <component> <observation moodCode= "EVN" classCode="OBS"> <templateId root="05.07.840.1.471020.01.08.22.4.2 " /> <id nullFlavor="NA" /> <code codeSystem="local" code="K" displayName="POTASSIUM" /> <statusCode code="completed" /> < effectiveTime value="917718608084" /> <value unit="mmol/L" xsi:type="PQ " value="3.6" /> <referenceRange> <observationRange> <text>3.5-5.3</text> </observationRange> </ referenceRange> </observation> </component> <component> <observation moodCode="EVN" classCode="OBS"> <templateId root= "05.07.840.1.775148.10...4.2" /> <id nullFlavor="NA" /> < code codeSystem="local" code="CMETHOD" displayName="METHOD" /> < statusCode code="completed" /> <effectiveTime value="561588923117" /> <value unit="" xsi:type="PQ" value="Bedside" /> < referenceRange> <observationRange> <text /> < /observationRange> </referenceRange> </observation> </ component> <component> <observation moodCode="EVN" classCode="OBS"> <templateId root="05.07.840.1.621107.10...4.2" /> <id nullFlavor="NA" /> <code codeSystem="local" code="GAP" displayName= "ANION GAP" /> <statusCode code="completed" /> <effectiveTime value="835886065595" /> <value unit="mmol/L" xsi:type="PQ" value="19" / > <referenceRange> <observationRange> <text>10- 20</text> </observationRange> </referenceRange> </ observation> </component> <component> <observation moodCode= "EVN" classCode="OBS"> <templateId root="216.840.1.844719.10...4.2 " /> <id nullFlavor="NA" /> <code codeSystem="local" code= "HMETHOD" displayName="METHOD" /> <statusCode code="completed" /> <effectiveTime value="463538560486" /> <value unit="" xsi:type="PQ " value="Bedside" /> <referenceRange> <observationRange> <text /> </observationRange> </referenceRange> </observation> </component> <component> <observation moodCode="EVN" classCode="OBS"> <templateId root= "216.840.1.412865.10..22.4.2" /> <id nullFlavor="NA" /> < code codeSystem="local" code="GLU" displayName="GLUCOSE" /> < statusCode code="completed" /> <effectiveTime value="609554805578" /> <value unit="mg/dL" xsi:type="PQ" value="75" /> < referenceRange> <observationRange> <text>70-99</text> </observationRange> </referenceRange> </observation> </component> <component> <observation moodCode="EVN" classCode= "OBS"> <templateId root="16.840.1.081163.01.08.22.4.2" /> < id nullFlavor="NA" /> <code codeSystem="local" code="BUN" displayName= "BLOOD UREA NITROGEN" /> <statusCode code="completed" /> < effectiveTime value="[id number]" /> <value unit="mg/dL" xsi:type="PQ " value="17" /> <referenceRange> <observationRange> <text>7-20</text> </observationRange> </referenceRange > </observation> </component> <component> <observation moodCode="EVN" classCode="OBS"> <templateId root= "2.16.840.1.167441.01.08.22.4.2" /> <id nullFlavor="NA" /> < code codeSystem="local" code="CREAT" displayName="CREATININE" /> < statusCode code="completed" /> <effectiveTime value="687761808841" /> <value unit="mg/dL" xsi:type="PQ" value="0.9" /> < referenceRange> <observationRange> <text>0.6-1.0</text> </observationRange> </referenceRange> </observation > </component> <component> <observation moodCode="EVN" classCode="OBS"> <templateId root="216.840.1.387822...22.4.2" /> <id nullFlavor="NA" /> <code codeSystem="local" code="HGBT" displayName="HEMOGLOBIN" /> <statusCode code="completed" /> < effectiveTime value="484163740605" /> <value unit="gm/dL" xsi:type="PQ " value="12.2" /> <referenceRange> <observationRange> <text>12.0-16.0</text> </observationRange> </ referenceRange> </observation> </component> <component> <observation moodCode="EVN" classCode="OBS"> <templateId root= "2.16.840.1.027969.10.20.22.4.2" /> <id nullFlavor="NA" /> < code codeSystem="local" code="HCTT" displayName="HEMATOCRIT" /> < statusCode code="completed" /> <effectiveTime value="346303492404" /> <value unit="%" xsi:type="PQ" value="36.0" /> < interpretationCode codeSystem="local" code="*" /> <referenceRange> <observationRange> <text>37.0-47.0</text> </ observationRange> </referenceRange> </observation> </ component> <component> <observation moodCode="EVN" classCode="OBS"> <templateId root="216.840.1.793234.01.08.22.4.2" /> <id nullFlavor="NA" /> <code codeSystem="local" code="NA" displayName= "SODIUM" /> <statusCode code="completed" /> <effectiveTime value="337615545210" /> <value unit="mmol/L" xsi:type="PQ" value="142" /> <referenceRange> <observationRange> <text> 135-148</text> </observationRange> </referenceRange> </observation> </component> <component> <observation moodCode= "EVN" classCode="OBS"> <templateId root="216.840.1.878418.10.20.22.4.2 " /> <id nullFlavor="NA" /> <code codeSystem="local" code="CL " displayName="CHLORIDE" /> <statusCode code="completed" /> < effectiveTime value="965643649054" /> <value unit="mmol/L" xsi:type="PQ " value="104" /> <referenceRange> <observationRange> <text>98-110</text> </observationRange> </ referenceRange> </observation> </component> <component> <observation moodCode="EVN" classCode="OBS"> <templateId root= "216.840.1.046974.10.20.22.4.2" /> <id nullFlavor="NA" /> < code codeSystem="local" code="CO2" displayName="CARBON DIOXIDE" /> < statusCode code="completed" /> <effectiveTime value="420754241333" /> <value unit="mmol/L" xsi:type="PQ" value="23" /> < referenceRange> <observationRange> <text>21-32</text> </observationRange> </referenceRange> </observation> </component> <component> <observation moodCode="EVN" classCode= "OBS"> <templateId root="05.07.840.1.693912.10...4.2" /> < id nullFlavor="NA" /> <code codeSystem="local" code="CAION" displayName ="CALCIUM IONIZED" /> <statusCode code="completed" /> < effectiveTime value="866598483435" /> <value unit="mg/dL" xsi:type="PQ " value="4.5" /> <referenceRange> <observationRange> <text>4.5-5.3</text> </observationRange> </ referenceRange> </observation> </component> </organizer> </entry > <entry> <organizer moodCode="EVN" classCode="BATTERY"> <templateId root="05.07.840.1.076663.10.20.22.4.1" /> <id nullFlavor="NA" /> <code codeSystem="local" code="CAION" displayName="CALCIUM IONIZED" /> < statusCode code="completed" /> <component> <observation moodCode= "EVN" classCode="OBS"> <templateId root="216.840.1.027303.10..22.4.2 " /> <id nullFlavor="NA" /> <code codeSystem="local" code= "CAION" displayName="CALCIUM IONIZED" /> <statusCode code="completed" / > <effectiveTime value="" /> <value unit="mg/dL" xsi:type="PQ" value="4.8" /> <referenceRange> < observationRange> <text>4.5-5.3</text> </ observationRange> </referenceRange> </observation> </ component> </organizer> </entry> <entry> <organizer moodCode="EVN" classCode="BATTERY"> <templateId root="2.16.840.1.777583.10..22.4.1" /> <id nullFlavor="NA" /> <code codeSystem="local" code="METABC" displayName="METABOLIC PANEL, COMPREHN" /> <statusCode code="completed" /> <component> <observation moodCode="EVN" classCode="OBS"> < templateId root="2.16.840.1.637967.10..22.4.2" /> <id nullFlavor="NA " /> <code codeSystem="local" code="K" displayName="POTASSIUM" /> <statusCode code="completed" /> <effectiveTime value=" " /> <value unit="mmol/L" xsi:type="PQ" value="4.1" /> < referenceRange> <observationRange> <text>3.5-5.3</text> </observationRange> </referenceRange> </observation > </component> <component> <observation moodCode="EVN" classCode="OBS"> <templateId root="216.840.1.503915.10..22.4.2" /> <id nullFlavor="NA" /> <code codeSystem="local" code="eGFR" displayName="EST GFR (MDRD)" /> <statusCode code="completed" /> <effectiveTime value="" /> <value unit="mL/min" xsi:type ="PQ" value="> 60" /> <referenceRange> <observationRange > <text>> 59</text> </observationRange> </ referenceRange> </observation> </component> <component> <observation moodCode="EVN" classCode="OBS"> <templateId root= "16.840.1.078258.10...4.2" /> <id nullFlavor="NA" /> < code codeSystem="local" code="GAP" displayName="ANION GAP" /> < statusCode code="completed" /> <effectiveTime value="" /> <value unit="mmol/L" xsi:type="PQ" value="6" /> < referenceRange> <observationRange> <text>5-15</text> </observationRange> </referenceRange> </observation> </component> <component> <observation moodCode="EVN" classCode= "OBS"> <templateId root="16.840.1.443712.10..22.4.2" /> < id nullFlavor="NA" /> <code codeSystem="local" code="eCrCl" displayName ="EST CrCl (CG)" /> <statusCode code="completed" /> < effectiveTime value="" /> <value unit="mL/min" xsi:type="PQ " value="> 60" /> <referenceRange> <observationRange> <text>> 59</text> </observationRange> </ referenceRange> </observation> </component> <component> <observation moodCode="EVN" classCode="OBS"> <templateId root= "216.840.1.129853.10..4.2" /> <id nullFlavor="NA" /> < code codeSystem="local" code="GLU" displayName="GLUCOSE" /> < statusCode code="completed" /> <effectiveTime value="" /> <value unit="mg/dL" xsi:type="PQ" value="73" /> < referenceRange> <observationRange> <text>70-99</text> </observationRange> </referenceRange> </observation> </component> <component> <observation moodCode="EVN" classCode= "OBS"> <templateId root="05.07.840.1.326946.01.08.22.4.2" /> < id nullFlavor="NA" /> <code codeSystem="local" code="CA" displayName= "CALCIUM" /> <statusCode code="completed" /> <effectiveTime value="" /> <value unit="mg/dL" xsi:type="PQ" value="8.6" / > <referenceRange> <observationRange> <text>8.5 -10.1</text> </observationRange> </referenceRange> </ observation> </component> <component> <observation moodCode= "EVN" classCode="OBS"> <templateId root="16.840.1.006789....4.2 " /> <id nullFlavor="NA" /> <code codeSystem="local" code="BUN " displayName="BLOOD UREA NITROGEN" /> <statusCode code="completed" /> <effectiveTime value="" /> <value unit="mg/dL" xsi:type="PQ" value="9" /> <referenceRange> < observationRange> <text>7-20</text> </observationRange> </referenceRange> </observation> </component> < component> <observation moodCode="EVN" classCode="OBS"> < templateId root="216.840.1.195502.10...4.2" /> <id nullFlavor="NA " /> <code codeSystem="local" code="CREAT" displayName="CREATININE" /> <statusCode code="completed" /> <effectiveTime value= "" /> <value unit="mg/dL" xsi:type="PQ" value="0.9" /> <referenceRange> <observationRange> <text>0.6-1.0< /text> </observationRange> </referenceRange> </ observation> </component> <component> <observation moodCode= "EVN" classCode="OBS"> <templateId root="05.07.840.1.715684...4.2 " /> <id nullFlavor="NA" /> <code codeSystem="local" code="NA " displayName="SODIUM" /> <statusCode code="completed" /> < effectiveTime value="" /> <value unit="mmol/L" xsi:type="PQ " value="141" /> <referenceRange> <observationRange> <text>135-148</text> </observationRange> </ referenceRange> </observation> </component> <component> <observation moodCode="EVN" classCode="OBS"> <templateId root= "05.07.840.1.123867.10..22.4.2" /> <id nullFlavor="NA" /> < code codeSystem="local" code="CL" displayName="CHLORIDE" /> < statusCode code="completed" /> <effectiveTime value="" /> <value unit="mmol/L" xsi:type="PQ" value="107" /> < referenceRange> <observationRange> <text>98-110</text> </observationRange> </referenceRange> </observation> </component> <component> <observation moodCode="EVN" classCode ="OBS"> <templateId root="216.840.1.285659.10..4.2" /> < id nullFlavor="NA" /> <code codeSystem="local" code="AST" displayName= "AST/SGOT" /> <statusCode code="completed" /> <effectiveTime value="" /> <value unit="Units/L" xsi:type="PQ" value="10" /> <referenceRange> <observationRange> <text>10 -37</text> </observationRange> </referenceRange> </ observation> </component> <component> <observation moodCode= "EVN" classCode="OBS"> <templateId root="216.840.1.122735.10..4.2 " /> <id nullFlavor="NA" /> <code codeSystem="local" code="ALT " displayName="ALT/SGPT" /> <statusCode code="completed" /> < effectiveTime value="" /> <value unit="Units/L" xsi:type= "PQ" value="16" /> <referenceRange> <observationRange> <text>< 66</text> </observationRange> </ referenceRange> </observation> </component> <component> <observation moodCode="EVN" classCode="OBS"> <templateId root= "216.840.1.889418.10..22.4.2" /> <id nullFlavor="NA" /> < code codeSystem="local" code="CO2" displayName="CARBON DIOXIDE" /> < statusCode code="completed" /> <effectiveTime value="" /> <value unit="mmol/L" xsi:type="PQ" value="28" /> < referenceRange> <observationRange> <text>21-32</text> </observationRange> </referenceRange> </observation> </component> <component> <observation moodCode="EVN" classCode= "OBS"> <templateId root="216.840.1.889847.10..22.4.2" /> < id nullFlavor="NA" /> <code codeSystem="local" code="TP" displayName= "TOTAL PROTEIN" /> <statusCode code="completed" /> < effectiveTime value="" /> <value unit="gm/dL" xsi:type="PQ " value="6.4" /> <referenceRange> <observationRange> <text>6.4-8.2</text> </observationRange> </ referenceRange> </observation> </component> <component> <observation moodCode="EVN" classCode="OBS"> <templateId root= "2.16.840.1.678181.10..22.4.2" /> <id nullFlavor="NA" /> < code codeSystem="local" code="ALB" displayName="ALBUMIN" /> < statusCode code="completed" /> <effectiveTime value="" /> <value unit="gm/dL" xsi:type="PQ" value="3.3" /> < interpretationCode codeSystem="local" code="*" /> <referenceRange> <observationRange> <text>3.4-5.0</text> </ observationRange> </referenceRange> </observation> </ component> <component> <observation moodCode="EVN" classCode="OBS"> <templateId root="216.840.1.534621.10..22.4.2" /> <id nullFlavor="NA" /> <code codeSystem="local" code="BILTOT" displayName= "BILI TOTAL" /> <statusCode code="completed" /> < effectiveTime value="" /> <value unit="mg/dL" xsi:type="PQ " value="1.6" /> <interpretationCode codeSystem="local" code="*" /> <referenceRange> <observationRange> <text>0.0-1.0 </text> </observationRange> </referenceRange> </ observation> </component> <component> <observation moodCode= "EVN" classCode="OBS"> <templateId root="216.840.1.183768.10...4.2 " /> <id nullFlavor="NA" /> <code codeSystem="local" code= "ALKP" displayName="ALKALINE PHOSPHATASE TOTAL" /> <statusCode code= "completed" /> <effectiveTime value="" /> <value unit="IU/L" xsi:type="PQ" value="56" /> <referenceRange> < observationRange> <text>45-117</text> </observationRange > </referenceRange> </observation> </component> </ organizer> </entry> <entry> <organizer moodCode="EVN" classCode="BATTERY"> <templateId root="216.840.1.961344.10..22.4.1" /> <id nullFlavor= "NA" /> <code codeSystem="local" code="PHOS" displayName="PHOSPHORUS" /> <statusCode code="completed" /> <component> <observation moodCode="EVN" classCode="OBS"> <templateId root= "16.840.1.494585.10..4.2" /> <id nullFlavor="NA" /> < code codeSystem="local" code="PHOS" displayName="PHOSPHORUS" /> < statusCode code="completed" /> <effectiveTime value="" /> <value unit="mg/dL" xsi:type="PQ" value="3.5" /> < referenceRange> <observationRange> <text>2.5-4.9</text> </observationRange> </referenceRange> </observation > </component> </organizer> </entry> <entry> <organizer moodCode= "EVN" classCode="BATTERY"> <templateId root="16.840.1.754909.01.08.22.4.1 " /> <id nullFlavor="NA" /> <code codeSystem="local" code="MAG" displayName="MAGNESIUM" /> <statusCode code="completed" /> <component > <observation moodCode="EVN" classCode="OBS"> <templateId root= "216.840.1.851038.10..4.2" /> <id nullFlavor="NA" /> < code codeSystem="local" code="MAG" displayName="MAGNESIUM" /> < statusCode code="completed" /> <effectiveTime value="" /> <value unit="mg/dL" xsi:type="PQ" value="2.1" /> < referenceRange> <observationRange> <text>1.8-2.4</text> </observationRange> </referenceRange> </observation > </component> </organizer> </entry> <entry> <organizer moodCode= "EVN" classCode="BATTERY"> <templateId root="16.840.1.508349.01.08.22.4.1 " /> <id nullFlavor="NA" /> <code codeSystem="local" code="[id number]" displayName="URINE (CTS IF INDICATED)" /> <statusCode code="completed" /> <component> <observation moodCode="EVN" classCode="OBS"> < templateId root="216.840.1.243377.01.08.22.4.2" /> <id nullFlavor="NA " /> <code codeSystem="local" code="GLUCOSE " displayName="GLUCOSE " / > <statusCode code="completed" /> <effectiveTime value= "560110684720" /> <value unit="" xsi:type="PQ" value="norm" /> <referenceRange> <observationRange> <text>NORMAL: NEGATIVE</text> </observationRange> </referenceRange> </observation> </component> <component> <observation moodCode ="EVN" classCode="OBS"> <templateId root= "05.07.840.1.600845.01.08.22.4.2" /> <id nullFlavor="NA" /> < code codeSystem="local" code="WBC " displayName="WBC " /> <statusCode code="completed" /> <effectiveTime value="" /> < value unit="" xsi:type="PQ" value="5-7" /> <referenceRange> <observationRange> <text>NRG</text> </observationRange> </referenceRange> </observation> </component> < component> <observation moodCode="EVN" classCode="OBS"> < templateId root="16.840.1.963531.01.08.22.4.2" /> <id nullFlavor="NA " /> <code codeSystem="local" code="URINE(CTSIFINDICATED)" displayName= "URINE(CTSIFINDICATED)" /> <statusCode code="completed" /> < effectiveTime value="" /> <value unit="" xsi:type="PQ" value="" /> <referenceRange> <observationRange> <text>NRG</text> </observationRange> </referenceRange> </observation> </component> <component> <observation moodCode="EVN" classCode="OBS"> <templateId root= "16.840.1.417381.01.08.22.4.2" /> <id nullFlavor="NA" /> < code codeSystem="local" code="URINECOLLECT" displayName=" URINE COLLECT" /> <statusCode code="completed" /> <effectiveTime value= "" /> <value unit="" xsi:type="PQ" value="UNKNOWN" /> <referenceRange> <observationRange> <text>NRG</text > </observationRange> </referenceRange> </observation > </component> <component> <observation moodCode="EVN" classCode="OBS"> <templateId root="05.07.840.1.894470.01.08.22.4.2" /> <id nullFlavor="NA" /> <code codeSystem="local" code="COLOR" displayName=" COLOR" /> <statusCode code="completed" /> < effectiveTime value="" /> <value unit="" xsi:type="PQ" value="STRAW" /> <referenceRange> <observationRange> <text>NORMAL:YELLOW</text> </observationRange> </ referenceRange> </observation> </component> <component> <observation moodCode="EVN" classCode="OBS"> <templateId root= "16.840.1.801917.01.08.22.4.2" /> <id nullFlavor="NA" /> < code codeSystem="local" code="CLARITY" displayName=" CLARITY" /> < statusCode code="completed" /> <effectiveTime value="" /> <value unit="" xsi:type="PQ" value="CLOUDY" /> <referenceRange > <observationRange> <text>NORMAL:CLEAR</text> </observationRange> </referenceRange> </observation> </ component> <component> <observation moodCode="EVN" classCode="OBS"> <templateId root="05.07.840.1.535912.10.4.2" /> <id nullFlavor="NA" /> <code codeSystem="local" code="SPGRAVITY" displayName=" SP GRAVITY" /> <statusCode code="completed" /> < effectiveTime value="" /> <value unit="" xsi:type="PQ" value="1.010" /> <referenceRange> <observationRange> <text>NRG</text> </observationRange> </referenceRange > </observation> </component> <component> <observation moodCode="EVN" classCode="OBS"> <templateId root= "05.07.840.1.645070.01.08.22.4.2" /> <id nullFlavor="NA" /> < code codeSystem="local" code="PH" displayName=" PH" /> <statusCode code ="completed" /> <effectiveTime value="" /> <value unit="" xsi:type="PQ" value="8" /> <referenceRange> < observationRange> <text>NORMAL:5 - 8</text> </ observationRange> </referenceRange> </observation> </ component> <component> <observation moodCode="EVN" classCode="OBS"> <templateId root="05.07.840.1.518908.01.08.22.4.2" /> <id nullFlavor="NA" /> <code codeSystem="local" code="LEUKOESTERAS" displayName=" LEUKOESTERAS" /> <statusCode code="completed" /> <effectiveTime value="497943508651" /> <value unit="" xsi:type="PQ" value="25 [place]et/uL" /> <referenceRange> <observationRange> <text>NORMAL:NEGATIVE</text> </observationRange> </referenceRange> </observation> </component> <component> <observation moodCode="EVN" classCode="OBS"> <templateId root= "840.1.340509...22.4.2" /> <id nullFlavor="NA" /> < code codeSystem="local" code="NITRITE" displayName=" NITRITE" /> < statusCode code="completed" /> <effectiveTime value="364463028683" /> <value unit="" xsi:type="PQ" value="neg" /> <referenceRange> <observationRange> <text>NORMAL:NEGATIVE</text> </observationRange> </referenceRange> </observation> </ component> <component> <observation moodCode="EVN" classCode="OBS"> <templateId root="05.07.840.1.020300...22.4.2" /> <id nullFlavor="NA" /> <code codeSystem="local" code="PROTEIN" displayName= " PROTEIN" /> <statusCode code="completed" /> <effectiveTime value="245427074553" /> <value unit="" xsi:type="PQ" value="neg" /> <referenceRange> <observationRange> <text>NORMAL: NEGATIVE</text> </observationRange> </referenceRange> </observation> </component> <component> <observation moodCode ="EVN" classCode="OBS"> <templateId root= "05.07.840.1.294534.20.22.4.2" /> <id nullFlavor="NA" /> < code codeSystem="local" code="KETONES" displayName=" KETONES" /> < statusCode code="completed" /> <effectiveTime value="150117987986" /> <value unit="" xsi:type="PQ" value="neg" /> <referenceRange> <observationRange> <text>NORMAL:NEGATIVE</text> </observationRange> </referenceRange> </observation> </ component> <component> <observation moodCode="EVN" classCode="OBS"> <templateId root="216.840.1.188040.10..22.4.2" /> <id nullFlavor="NA" /> <code codeSystem="local" code="UROBILINOGEN" displayName=" UROBILINOGEN" /> <statusCode code="completed" /> <effectiveTime value="588693918735" /> <value unit="" xsi:type="PQ" value="norm" /> <referenceRange> <observationRange> <text>NORMAL:NEGATIVE</text> </observationRange> </ referenceRange> </observation> </component> <component> <observation moodCode="EVN" classCode="OBS"> <templateId root= "216.840.1.734228.10..22.4.2" /> <id nullFlavor="NA" /> < code codeSystem="local" code="BILIRUBIN" displayName=" BILIRUBIN" /> < statusCode code="completed" /> <effectiveTime value="869245590645" /> <value unit="" xsi:type="PQ" value="neg" /> <referenceRange> <observationRange> <text>NORMAL:NEGATIVE</text> </observationRange> </referenceRange> </observation> </ component> <component> <observation moodCode="EVN" classCode="OBS"> <templateId root="216.840.1.630641.10.4.2" /> <id nullFlavor="NA" /> <code codeSystem="local" code="BLOOD" displayName=" BLOOD" /> <statusCode code="completed" /> <effectiveTime value ="698762244444" /> <value unit="" xsi:type="PQ" value="neg" /> <referenceRange> <observationRange> <text>NORMAL: NEGATIVE</text> </observationRange> </referenceRange> </observation> </component> <component> <observation moodCode ="EVN" classCode="OBS"> <templateId root= "216.840.1.366679.01.08.22.4.2" /> <id nullFlavor="NA" /> < code codeSystem="local" code="MICROSCOPIC" displayName=" MICROSCOPIC" /> <statusCode code="completed" /> <effectiveTime value="" /> <value unit="" xsi:type="PQ" value="SEE BELOW" /> < referenceRange> <observationRange> <text>NRG</text> </observationRange> </referenceRange> </observation> </component> <component> <observation moodCode="EVN" classCode= "OBS"> <templateId root="216.840.1.728256.01.08.22.4.2" /> < id nullFlavor="NA" /> <code codeSystem="local" code="EPITHELIAL" displayName=" EPITHELIAL" /> <statusCode code="completed" /> < effectiveTime value="" /> <value unit="" xsi:type="PQ" value=">15 SQ EPI" /> <referenceRange> <observationRange > <text>NRG</text> </observationRange> </ referenceRange> </observation> </component> <component> <observation moodCode="EVN" classCode="OBS"> <templateId root= "216.840.1.297585.10..4.2" /> <id nullFlavor="NA" /> < code codeSystem="local" code="BACTERIA" displayName=" BACTERIA" /> < statusCode code="completed" /> <effectiveTime value="" /> <value unit="" xsi:type="PQ" value="MODERA" /> <referenceRange > <observationRange> <text>NRG</text> </ observationRange> </referenceRange> </observation> </ component> <component> <observation moodCode="EVN" classCode="OBS"> <templateId root="16.840.1.029703.01.08.22.4.2" /> <id nullFlavor="NA" /> <code codeSystem="local" code="CULTURE" displayName= " CULTURE" /> <statusCode code="completed" /> <effectiveTime value="" /> <value unit="" xsi:type="PQ" value="NOT INDICATED" /> <referenceRange> <observationRange> <text>NRG</text> </observationRange> </referenceRange> </observation> </component> <component> <observation moodCode="EVN" classCode="OBS"> <templateId root= "16.840.1.173039.10.4.2" /> <id nullFlavor="NA" /> < code codeSystem="local" code="CRYSTALS" displayName=" CRYSTALS" /> < statusCode code="completed" /> <effectiveTime value="" /> <value unit="" xsi:type="PQ" value="SEE BELOW" /> < referenceRange> <observationRange> <text>NRG</text> </observationRange> </referenceRange> </observation> </component> <component> <observation moodCode="EVN" classCode= "OBS"> <templateId root="840.1.609062.10..4.2" /> < id nullFlavor="NA" /> <code codeSystem="local" code="AMORPHOUS" displayName=" AMORPHOUS" /> <statusCode code="completed" /> < effectiveTime value="981605739462" /> <value unit="" xsi:type="PQ" value="FEW" /> <referenceRange> <observationRange> <text>NORMAL: NONE SEEN</text> </observationRange> </ referenceRange> </observation> </component> </organizer> </entry > <entry> <organizer moodCode="EVN" classCode="BATTERY"> <templateId root="05.07.840.1.061701.10..4.1" /> <id nullFlavor="NA" /> <code codeSystem="local" code="TLO212" displayName="[place]" /> <statusCode code="completed" /> <component> <observation moodCode="EVN" classCode="OBS"> <templateId root="05.07.840.1.870142.10...4.2" /> <id nullFlavor="NA" /> <code codeSystem="local" code="[id number] " displayName="Clue Cells" /> <statusCode code="completed" /> <effectiveTime value="306694556296" /> <value unit="" xsi:type="PQ" value="Not Observed" /> <referenceRange> <observationRange> <text>Not Observed</text> </observationRange> </referenceRange> </observation> </component> <component> <observation moodCode="EVN" classCode="OBS"> <templateId root= "05.07.840.1.493594.01.08.22.4.2" /> <id nullFlavor="NA" /> < code codeSystem="local" code="[id number]" displayName="Trichomonas" /> < statusCode code="completed" /> <effectiveTime value="789463839813" /> <value unit="" xsi:type="PQ" value="Not Observed" /> < referenceRange> <observationRange> <text>Not Observed</ text> </observationRange> </referenceRange> </ observation> </component> <component> <observation moodCode= "EVN" classCode="OBS"> <templateId root="840.1.264805.01.08.224.2 " /> <id nullFlavor="NA" /> <code codeSystem="local" code= "[id number]" displayName="Yeast" /> <statusCode code="completed" /> <effectiveTime value="[id number]" /> <value unit="" xsi:type="PQ " value="Not Observed" /> <referenceRange> <observationRange > <text>Not Observed</text> </observationRange> </referenceRange> </observation> </component> </organizer> </ entry> <entry> <organizer moodCode="EVN" classCode="BATTERY"> < templateId root="05.07.840.1.031765.01.08.22.4.1" /> <id nullFlavor="NA" /> <code codeSystem="local" code="384598" displayName="Chlamydia/GC Amplification" /> <statusCode code="completed" /> <component> < observation moodCode="EVN" classCode="OBS"> <templateId root= "840.1.145549.01.08.22.4.2" /> <id nullFlavor="NA" /> < code codeSystem="local" code="551518" displayName="CHLAMYDIA TRACHOMATIS, MELISSA" / > <statusCode code="completed" /> <effectiveTime value= "323540073059" /> <value unit="" xsi:type="PQ" value="NEGATIVE" /> <referenceRange> <observationRange> <text>NEGATIVE </text> </observationRange> </referenceRange> </ observation> </component> <component> <observation moodCode= "EVN" classCode="OBS"> <templateId root="05.07.840.1.463807.10.4.2 " /> <id nullFlavor="NA" /> <code codeSystem="local" code= "060337" displayName="NEISSERIA GONORRHOEAE, MELISSA" /> <statusCode code= "completed" /> <effectiveTime value="002671862475" /> <value unit="" xsi:type="PQ" value="NEGATIVE" /> <referenceRange> < observationRange> <text>NEGATIVE</text> </ observationRange> </referenceRange> </observation> </ component> </organizer> </entry> <entry> <organizer moodCode="EVN" classCode="BATTERY"> <templateId root="05.07.840.1.924703.01.08.22.4.1" /> <id nullFlavor="NA" /> <code codeSystem="local" code="076399" displayName="Chlamydia/GC Amplification" /> <statusCode code="completed" / > <component> <observation moodCode="EVN" classCode="OBS"> <templateId root="05.07.840.1.766360.01.08.22.4.2" /> <id nullFlavor="NA " /> <code codeSystem="local" code="806716" displayName="Chlamydia trachomatis, MELISSA" /> <statusCode code="completed" /> < effectiveTime value="553342246412" /> <value unit="" xsi:type="PQ" value="Negative" /> <referenceRange> <observationRange> <text>Negative</text> </observationRange> </ referenceRange> </observation> </component> <component> <observation moodCode="EVN" classCode="OBS"> <templateId root= "16.840.1.764039.10.2022.4.2" /> <id nullFlavor="NA" /> < code codeSystem="local" code="627832" displayName="Neisseria gonorrhoeae, MELISSA" / > <statusCode code="completed" /> <effectiveTime value= "662242210258" /> <value unit="" xsi:type="PQ" value="Negative" /> <referenceRange> <observationRange> <text>Negative </text> </observationRange> </referenceRange> </ observation> </component> </organizer> </entry> <entry> <organizer moodCode="EVN" classCode="BATTERY"> <templateId root= "16.840.1.069969.10..22.4.1" /> <id nullFlavor="NA" /> <code codeSystem="local" code="237601" displayName="Ova + Parasite Exam" /> < statusCode code="completed" /> <component> <observation moodCode= "EVN" classCode="OBS"> <templateId root="16.840.1.968556.10.2022.4.2 " /> <id nullFlavor="NA" /> <code codeSystem="local" code= "562262" displayName="OVA + PARASITE EXAM" /> <statusCode code= "completed" /> <effectiveTime value="290739021978" /> <value unit="" xsi:type="PQ" value="FINAL REPORT" /> <referenceRange> <observationRange> <text /> </observationRange> </referenceRange> </observation> </component> <component > <observation moodCode="EVN" classCode="OBS"> <templateId root= "216.840.1.540631.10..22.4.2" /> <id nullFlavor="NA" /> < code codeSystem="local" code="722373" displayName="RESULT 1" /> < statusCode code="completed" /> <effectiveTime value="" /> <value unit="" xsi:type="PQ" value="NO OVA, CYSTS, OR PARASITES SEEN." /> <referenceRange> <observationRange> <text / > </observationRange> </referenceRange> </observation > </component> </organizer> </entry> <entry> <organizer moodCode= "EVN" classCode="BATTERY"> <templateId root="2.16.840.1.839507.10..22.4.1 " /> <id nullFlavor="NA" /> <code codeSystem="local" code="34251-4" displayName="Complete urinalysis with reflex to culture" /> <statusCode code="completed" /> <component> <observation moodCode="EVN" classCode="OBS"> <templateId root="2.16.840.1.732659.10..22.4.2" /> <id nullFlavor="NA" /> <code codeSystem="local" code="5778-6" displayName="Urine color determination" /> <statusCode code="completed " /> <effectiveTime value="651876595227" /> <value unit="" xsi :type="PQ" value="YELLOW" /> <referenceRange> < observationRange> <text>NRG</text> </observationRange> </referenceRange> </observation> </component> < component> <observation moodCode="EVN" classCode="OBS"> < templateId root="216.840.1.924066...22.4.2" /> <id nullFlavor="NA " /> <code codeSystem="local" code="64302-6" displayName="Urine clarity determination" /> <statusCode code="completed" /> < effectiveTime value="" /> <value unit="" xsi:type="PQ" value="CLEAR" /> <referenceRange> <observationRange> <text>NRG</text> </observationRange> </referenceRange > </observation> </component> <component> <observation moodCode="EVN" classCode="OBS"> <templateId root= "2.16.840.1.210635....4.2" /> <id nullFlavor="NA" /> < code codeSystem="local" code="5803-2" displayName="Urine pH measurement by test strip" /> <statusCode code="completed" /> <effectiveTime value ="" /> <value unit="" xsi:type="PQ" value="6" /> < referenceRange> <observationRange> <text>5-9</text> </observationRange> </referenceRange> </observation> </component> <component> <observation moodCode="EVN" classCode= "OBS"> <templateId root="2.16.840.1.615238.10..22.4.2" /> < id nullFlavor="NA" /> <code codeSystem="local" code="5811-5" displayName="Specific gravity of urine by test strip" /> <statusCode code="completed" /> <effectiveTime value="" /> < value unit="" xsi:type="PQ" value="1.020" /> <referenceRange> <observationRange> <text>1.016-1.022</text> </ observationRange> </referenceRange> </observation> </ component> <component> <observation moodCode="EVN" classCode="OBS"> <templateId root="2.16.840.1.179505.10..22.4.2" /> <id nullFlavor="NA" /> <code codeSystem="local" code="41400-9" displayName= "Urine protein assay by test strip, semi-quantitative" /> <statusCode code="completed" /> <effectiveTime value="" /> < value unit="" xsi:type="PQ" value="1+" /> <interpretationCode codeSystem="local" code="*" /> <referenceRange> < observationRange> <text>NEGATIVE</text> </ observationRange> </referenceRange> </observation> </ component> <component> <observation moodCode="EVN" classCode="OBS"> <templateId root="216.840.1.034913.01.08.22.4.2" /> <id nullFlavor="NA" /> <code codeSystem="local" code="58007-4" displayName= "Urine glucose detection by automated test strip" /> <statusCode code= "completed" /> <effectiveTime value="" /> <value unit="" xsi:type="PQ" value="NEGATIVE" /> <referenceRange> < observationRange> <text>NEGATIVE</text> </ observationRange> </referenceRange> </observation> </ component> <component> <observation moodCode="EVN" classCode="OBS"> <templateId root="216.840.1.296452.10...4.2" /> <id nullFlavor="NA" /> <code codeSystem="local" code="84507-9" displayName= "Erythrocytes detection in urine sediment by light microscopy" /> < statusCode code="completed" /> <effectiveTime value="" /> <value unit="" xsi:type="PQ" value="3+" /> < interpretationCode codeSystem="local" code="*" /> <referenceRange> <observationRange> <text>NEGATIVE</text> </ observationRange> </referenceRange> </observation> </ component> <component> <observation moodCode="EVN" classCode="OBS"> <templateId root="05.07.840.1.749670.10..4.2" /> <id nullFlavor="NA" /> <code codeSystem="local" code="29402-7" displayName= "Urine ketones detection by automated test strip" /> <statusCode code= "completed" /> <effectiveTime value="077458458084" /> <value unit="" xsi:type="PQ" value="2+" /> <interpretationCode codeSystem= "local" code="*" /> <referenceRange> <observationRange> <text>NEGATIVE</text> </observationRange> </ referenceRange> </observation> </component> <component> <observation moodCode="EVN" classCode="OBS"> <templateId root= "05.07.840.1.263445.10.4.2" /> <id nullFlavor="NA" /> < code codeSystem="local" code="5802-4" displayName="Urine nitrite detection by test strip" /> <statusCode code="completed" /> <effectiveTime value="965570276991" /> <value unit="" xsi:type="PQ" value="NEGATIVE" / > <referenceRange> <observationRange> <text> NEGATIVE</text> </observationRange> </referenceRange> </observation> </component> <component> <observation moodCode ="EVN" classCode="OBS"> <templateId root= "05.07.840.1.997840.01.08.22.4.2" /> <id nullFlavor="NA" /> < code codeSystem="local" code="5770-3" displayName="Urine total bilirubin detection by test strip" /> <statusCode code="completed" /> < effectiveTime value="" /> <value unit="" xsi:type="PQ" value="NEGATIVE" /> <referenceRange> <observationRange> <text>NEGATIVE</text> </observationRange> </ referenceRange> </observation> </component> <component> <observation moodCode="EVN" classCode="OBS"> <templateId root= "2.16.840.1.528534.01.08.22.4.2" /> <id nullFlavor="NA" /> < code codeSystem="local" code="55784-1" displayName="Urine urobilinogen measurement by automated test strip (mass/volume)" /> <statusCode code= "completed" /> <effectiveTime value="" /> <value unit="" xsi:type="PQ" value="NORMAL" /> <referenceRange> < observationRange> <text>NORMAL</text> </observationRange > </referenceRange> </observation> </component> < component> <observation moodCode="EVN" classCode="OBS"> < templateId root="2.16.840.1.424536.01.08.22.4.2" /> <id nullFlavor="NA " /> <code codeSystem="local" code="5799-2" displayName="Urine leukocyte esterase detection by dipstick" /> <statusCode code= "completed" /> <effectiveTime value="" /> <value unit="" xsi:type="PQ" value="1+" /> <interpretationCode codeSystem= "local" code="*" /> <referenceRange> <observationRange> <text>NEGATIVE</text> </observationRange> </ referenceRange> </observation> </component> <component> <observation moodCode="EVN" classCode="OBS"> <templateId root= "05.07.840.1.007710.10..4.2" /> <id nullFlavor="NA" /> < code codeSystem="local" code="73298-1" displayName="Automated urine sediment erythrocyte count by microscopy (number/high power field)" /> < statusCode code="completed" /> <effectiveTime value="978347829564" /> <value unit="[HPF]" xsi:type="PQ" value="" /> < interpretationCode codeSystem="local" code="*" /> <referenceRange> <observationRange> <text>NRG</text> </ observationRange> </referenceRange> </observation> </ component> <component> <observation moodCode="EVN" classCode="OBS"> <templateId root="05.07.840.1.595123.10.4.2" /> <id nullFlavor="NA" /> <code codeSystem="local" code="5821-4" displayName= "Automated urine sediment leukocyte count by microscopy (number/high power field )" /> <statusCode code="completed" /> <effectiveTime value= "340101587414" /> <value unit="[HPF]" xsi:type="PQ" value="" /> <referenceRange> <observationRange> <text>NRG</text> </observationRange> </referenceRange> </observation > </component> <component> <observation moodCode="EVN" classCode="OBS"> <templateId root="05.07.840.1.323696.10..4.2" /> <id nullFlavor="NA" /> <code codeSystem="local" code="60086-1 " displayName="Bacteria detection in urine sediment by light microscopy" /> <statusCode code="completed" /> <effectiveTime value= "630088503964" /> <value unit="" xsi:type="PQ" value="FEW" /> <interpretationCode codeSystem="local" code="*" /> <referenceRange> <observationRange> <text>NRG</text> </ observationRange> </referenceRange> </observation> </ component> <component> <observation moodCode="EVN" classCode="OBS"> <templateId root="2.16.840.1.675326.10..22.4.2" /> <id nullFlavor="NA" /> <code codeSystem="local" code="40220-4" displayName= "Squamous epithelial cells detection in urine sediment by light microscopy" /> <statusCode code="completed" /> <effectiveTime value= "417721585223" /> <value unit="" xsi:type="PQ" value="25-50" /> <interpretationCode codeSystem="local" code="*" /> <referenceRange> <observationRange> <text>NRG</text> </ observationRange> </referenceRange> </observation> </ component> <component> <observation moodCode="EVN" classCode="OBS"> <templateId root="2.16.840.1.370009.10...4.2" /> <id nullFlavor="NA" /> <code codeSystem="local" code="26118-2" displayName= "Crystals detection in urine sediment by light microscopy" /> < statusCode code="completed" /> <effectiveTime value="446231657287" /> <value unit="" xsi:type="PQ" value="NONE" /> <referenceRange> <observationRange> <text>NRG</text> </ observationRange> </referenceRange> </observation> </ component> <component> <observation moodCode="EVN" classCode="OBS"> <templateId root="16.840.1.062256.10.20.22.4.2" /> <id nullFlavor="NA" /> <code codeSystem="local" code="48629-2" displayName= "Casts detection in urine sediment by light microscopy" /> <statusCode code="completed" /> <effectiveTime value="" /> < value unit="" xsi:type="PQ" value="NONE" /> <referenceRange> <observationRange> <text>NRG</text> </observationRange > </referenceRange> </observation> </component> < component> <observation moodCode="EVN" classCode="OBS"> < templateId root="05.07.840.1.154177.10..4.2" /> <id nullFlavor="NA " /> <code codeSystem="local" code="8247-9" displayName="Mucus detection in urine sediment by light microscopy" /> <statusCode code= "completed" /> <effectiveTime value="" /> <value unit="" xsi:type="PQ" value="MODERATE" /> <interpretationCode codeSystem="local" code="*" /> <referenceRange> < observationRange> <text>NRG</text> </observationRange> </referenceRange> </observation> </component> < component> <observation moodCode="EVN" classCode="OBS"> < templateId root="05.07.840.1.391628.10.20.22.4.2" /> <id nullFlavor="NA " /> <code codeSystem="local" code="87722-8" displayName="Complete urinalysis with reflex to culture" /> <statusCode code="completed" /> <effectiveTime value="" /> <value unit="" xsi:type ="PQ" value="NO" /> <referenceRange> <observationRange> <text>NRG</text> </observationRange> </ referenceRange> </observation> </component> </organizer> </entry > <entry> <organizer moodCode="EVN" classCode="BATTERY"> <templateId root="216.840.1.726817.10.20.22.4.1" /> <id nullFlavor="NA" /> <code codeSystem="local" code="70702-7" displayName="Complete blood count (CBC) with automated white blood cell (WBC) differential" /> <statusCode code= "completed" /> <component> <observation moodCode="EVN" classCode= "OBS"> <templateId root="216.840.1.277830.10.20.22.4.2" /> < id nullFlavor="NA" /> <code codeSystem="local" code="6690-2" displayName="Blood leukocytes automated count (number/volume)" /> < statusCode code="completed" /> <effectiveTime value="" /> <value unit="10*3/uL" xsi:type="PQ" value="10.4" /> < referenceRange> <observationRange> <text>4.3-11.0</text > </observationRange> </referenceRange> </observation > </component> <component> <observation moodCode="EVN" classCode="OBS"> <templateId root="05.07.840.1.174672.10..22.4.2" /> <id nullFlavor="NA" /> <code codeSystem="local" code="789-8" displayName="Blood erythrocytes automated count (number/volume)" /> < statusCode code="completed" /> <effectiveTime value="" /> <value unit="10*6/uL" xsi:type="PQ" value="4.34" /> < interpretationCode codeSystem="local" code="" /> <referenceRange> <observationRange> <text>4.35-5.85</text> </ observationRange> </referenceRange> </observation> </ component> <component> <observation moodCode="EVN" classCode="OBS"> <templateId root="2.16.840.1.292170.10..22.4.2" /> <id nullFlavor="NA" /> <code codeSystem="local" code="77210-0" displayName= "Venous blood hemoglobin measurement (mass/volume)" /> <statusCode code ="completed" /> <effectiveTime value="662880521499" /> <value unit="g/dL" xsi:type="PQ" value="12.9" /> <referenceRange> < observationRange> <text>11.5-16.0</text> </ observationRange> </referenceRange> </observation> </ component> <component> <observation moodCode="EVN" classCode="OBS"> <templateId root="216.840.1.363157.10...4.2" /> <id nullFlavor="NA" /> <code codeSystem="local" code="24530-0" displayName= "Blood hematocrit (volume fraction)" /> <statusCode code="completed" / > <effectiveTime value="198627450289" /> <value unit="%" xsi:type="PQ" value="38" /> <referenceRange> < observationRange> <text>35-52</text> </observationRange > </referenceRange> </observation> </component> < component> <observation moodCode="EVN" classCode="OBS"> < templateId root="2.16.840.1.423233.10.20.22.4.2" /> <id nullFlavor="NA " /> <code codeSystem="local" code="787-2" displayName="Automated erythrocyte mean corpuscular volume" /> <statusCode code="completed" / > <effectiveTime value="145912432622" /> <value unit="[foz_us] " xsi:type="PQ" value="86" /> <referenceRange> < observationRange> <text>80-99</text> </observationRange > </referenceRange> </observation> </component> < component> <observation moodCode="EVN" classCode="OBS"> < templateId root="2.16.840.1.884882.10.20.22.4.2" /> <id nullFlavor="NA " /> <code codeSystem="local" code="785-6" displayName="Automated erythrocyte mean corpuscular hemoglobin (mass per erythrocyte)" /> < statusCode code="completed" /> <effectiveTime value="038702880717" /> <value unit="pg" xsi:type="PQ" value="30" /> <referenceRange> <observationRange> <text>25-34</text> </ observationRange> </referenceRange> </observation> </ component> <component> <observation moodCode="EVN" classCode="OBS"> <templateId root="2.16.840.1.988901.10.20.22.4.2" /> <id nullFlavor="NA" /> <code codeSystem="local" code="786-4" displayName= "Automated erythrocyte mean corpuscular hemoglobin concentration measurement ( mass/volume)" /> <statusCode code="completed" /> < effectiveTime value="467803271025" /> <value unit="g/dL" xsi:type="PQ" value="34" /> <referenceRange> <observationRange> <text>32-36</text> </observationRange> </referenceRange > </observation> </component> <component> <observation moodCode="EVN" classCode="OBS"> <templateId root= "2.16.840.1.351880.10.20.22.4.2" /> <id nullFlavor="NA" /> < code codeSystem="local" code="788-0" displayName="Automated erythrocyte distribution width ratio" /> <statusCode code="completed" /> < effectiveTime value="" /> <value unit="%" xsi:type="PQ " value="12.0" /> <referenceRange> <observationRange> <text>10.0-14.5</text> </observationRange> </ referenceRange> </observation> </component> <component> <observation moodCode="EVN" classCode="OBS"> <templateId root= "2.16.840.1.660869.10.22.4.2" /> <id nullFlavor="NA" /> < code codeSystem="local" code="777-3" displayName="Automated blood platelet count (count/volume)" /> <statusCode code="completed" /> < effectiveTime value="954854648883" /> <value unit="10*3/uL" xsi:type= "PQ" value="230" /> <referenceRange> <observationRange> <text>130-400</text> </observationRange> </ referenceRange> </observation> </component> <component> <observation moodCode="EVN" classCode="OBS"> <templateId root= "2.16.840.1.757034.10..22.4.2" /> <id nullFlavor="NA" /> < code codeSystem="local" code="67524-8" displayName="Automated blood platelet mean volume measurement" /> <statusCode code="completed" /> < effectiveTime value="" /> <value unit="[[facility]]" xsi:type= "PQ" value="9.8" /> <referenceRange> <observationRange> <text>7.4-10.4</text> </observationRange> </ referenceRange> </observation> </component> <component> <observation moodCode="EVN" classCode="OBS"> <templateId root= "2.16.840.1.640872.10.20.22.4.2" /> <id nullFlavor="NA" /> < code codeSystem="local" code="770-8" displayName="Automated blood neutrophils/ 100 leukocytes" /> <statusCode code="completed" /> < effectiveTime value="492629884044" /> <value unit="%" xsi:type="PQ " value="74" /> <referenceRange> <observationRange> <text>42-75</text> </observationRange> </ referenceRange> </observation> </component> <component> <observation moodCode="EVN" classCode="OBS"> <templateId root= "216.840.1.255752.10..22.4.2" /> <id nullFlavor="NA" /> < code codeSystem="local" code="736-9" displayName="Automated blood lymphocytes/ 100 leukocytes" /> <statusCode code="completed" /> < effectiveTime value="911236726140" /> <value unit="%" xsi:type="PQ " value="18" /> <referenceRange> <observationRange> <text>12-44</text> </observationRange> </ referenceRange> </observation> </component> <component> <observation moodCode="EVN" classCode="OBS"> <templateId root= "2.16.840.1.784138.10.20.22.4.2" /> <id nullFlavor="NA" /> < code codeSystem="local" code="29943-3" displayName="Blood monocytes/100 leukocytes" /> <statusCode code="completed" /> <effectiveTime value="003857346774" /> <value unit="%" xsi:type="PQ" value="7" /> <referenceRange> <observationRange> <text>0-12 </text> </observationRange> </referenceRange> </ observation> </component> <component> <observation moodCode= "EVN" classCode="OBS"> <templateId root="2.16.840.1.447556.10.20.22.4.2 " /> <id nullFlavor="NA" /> <code codeSystem="local" code="713 -8" displayName="Automated blood eosinophils/100 leukocytes" /> < statusCode code="completed" /> <effectiveTime value="086375855357" /> <value unit="%" xsi:type="PQ" value="0" /> <referenceRange > <observationRange> <text>0-10</text> </ observationRange> </referenceRange> </observation> </ component> <component> <observation moodCode="EVN" classCode="OBS"> <templateId root="2.16.840.1.640072.10.20.22.4.2" /> <id nullFlavor="NA" /> <code codeSystem="local" code="706-2" displayName= "Automated blood basophils/100 leukocytes" /> <statusCode code= "completed" /> <effectiveTime value="747966911959" /> <value unit="%" xsi:type="PQ" value="0" /> <referenceRange> < observationRange> <text>0-10</text> </observationRange> </referenceRange> </observation> </component> < component> <observation moodCode="EVN" classCode="OBS"> < templateId root="216.840.1.281947.10.20.22.4.2" /> <id nullFlavor="NA " /> <code codeSystem="local" code="751-8" displayName="Blood neutrophils automated count (number/volume)" /> <statusCode code= "completed" /> <effectiveTime value="" /> <value unit="10*3" xsi:type="PQ" value="7.7" /> <referenceRange> < observationRange> <text>1.8-7.8</text> </ observationRange> </referenceRange> </observation> </ component> <component> <observation moodCode="EVN" classCode="OBS"> <templateId root="216.840.1.922433.10..22.4.2" /> <id nullFlavor="NA" /> <code codeSystem="local" code="731-0" displayName= "Blood lymphocytes automated count (number/volume)" /> <statusCode code ="completed" /> <effectiveTime value="" /> <value unit="10*3" xsi:type="PQ" value="1.9" /> <referenceRange> < observationRange> <text>1.0-4.0</text> </ observationRange> </referenceRange> </observation> </ component> <component> <observation moodCode="EVN" classCode="OBS"> <templateId root="216.840.1.585777.10.20.22.4.2" /> <id nullFlavor="NA" /> <code codeSystem="local" code="742-7" displayName= "Blood monocytes automated count (number/volume)" /> <statusCode code= "completed" /> <effectiveTime value="" /> <value unit="10*3" xsi:type="PQ" value="0.7" /> <referenceRange> < observationRange> <text>0.0-1.0</text> </ observationRange> </referenceRange> </observation> </ component> <component> <observation moodCode="EVN" classCode="OBS"> <templateId root="2.16.840.1.303477.10...4.2" /> <id nullFlavor="NA" /> <code codeSystem="local" code="711-2" displayName= "Automated eosinophil count" /> <statusCode code="completed" /> <effectiveTime value="456807738380" /> <value unit="10*3/uL" xsi: type="PQ" value="0.0" /> <referenceRange> <observationRange > <text>0.0-0.3</text> </observationRange> </ referenceRange> </observation> </component> <component> <observation moodCode="EVN" classCode="OBS"> <templateId root= "216.840.1.288168...4.2" /> <id nullFlavor="NA" /> < code codeSystem="local" code="704-7" displayName="Automated blood basophil count (count/volume)" /> <statusCode code="completed" /> < effectiveTime value="584670395967" /> <value unit="10*3/uL" xsi:type= "PQ" value="0.0" /> <referenceRange> <observationRange> <text>0.0-0.1</text> </observationRange> </ referenceRange> </observation> </component> </organizer> </entry > <entry> <organizer moodCode="EVN" classCode="BATTERY"> <templateId root="216.840.1.786904.10..4.1" /> <id nullFlavor="NA" /> <code codeSystem="local" code="29119-3" displayName="Comprehensive metabolic panel" / > <statusCode code="completed" /> <component> <observation moodCode="EVN" classCode="OBS"> <templateId root= "2.16.840.1.984321.10.20.22.4.2" /> <id nullFlavor="NA" /> < code codeSystem="local" code="2951-2" displayName="Serum or plasma sodium measurement (moles/volume)" /> <statusCode code="completed" /> <effectiveTime value="526359988500" /> <value unit="mmol/L" xsi:type= "PQ" value="138" /> <referenceRange> <observationRange> <text>135-145</text> </observationRange> </ referenceRange> </observation> </component> <component> <observation moodCode="EVN" classCode="OBS"> <templateId root= "16.840.1.630920.10...4.2" /> <id nullFlavor="NA" /> < code codeSystem="local" code="2823-3" displayName="Serum or plasma potassium measurement (moles/volume)" /> <statusCode code="completed" /> <effectiveTime value="364368500592" /> <value unit="mmol/L" xsi:type= "PQ" value="3.4" /> <interpretationCode codeSystem="local" code="" / > <referenceRange> <observationRange> <text>3.6 -5.0</text> </observationRange> </referenceRange> </ observation> </component> <component> <observation moodCode= "EVN" classCode="OBS"> <templateId root="216.840.1.733653.10..22.4.2 " /> <id nullFlavor="NA" /> <code codeSystem="local" code= "" displayName="Serum or plasma chloride measurement (moles/volume)" /> <statusCode code="completed" /> <effectiveTime value= "258477154847" /> <value unit="mmol/L" xsi:type="PQ" value="104" /> <referenceRange> <observationRange> <text>98-107< /text> </observationRange> </referenceRange> </ observation> </component> <component> <observation moodCode= "EVN" classCode="OBS"> <templateId root="2.16.840.1.701575.10..22.4.2 " /> <id nullFlavor="NA" /> <code codeSystem="local" code= "2027-11" displayName="Carbon dioxide" /> <statusCode code="completed" / > <effectiveTime value="476810898778" /> <value unit="mmol/L" xsi:type="PQ" value="24" /> <referenceRange> < observationRange> <text>21-32</text> </observationRange > </referenceRange> </observation> </component> < component> <observation moodCode="EVN" classCode="OBS"> < templateId root="2.16.840.1.986445.10.20.22.4.2" /> <id nullFlavor="NA " /> <code codeSystem="local" code="41960-7" displayName="Serum or plasma anion gap determination (moles/volume)" /> <statusCode code= "completed" /> <effectiveTime value="810628150332" /> <value unit="mmol/L" xsi:type="PQ" value="10" /> <referenceRange> < observationRange> <text>5-14</text> </observationRange> </referenceRange> </observation> </component> < component> <observation moodCode="EVN" classCode="OBS"> < templateId root="2.16.840.1.884654.10.20.22.4.2" /> <id nullFlavor="NA " /> <code codeSystem="local" code="3094-0" displayName="Serum or plasma urea nitrogen measurement (mass/volume)" /> <statusCode code= "completed" /> <effectiveTime value="925002548532" /> <value unit="mg/dL" xsi:type="PQ" value="14" /> <referenceRange> < observationRange> <text>7-18</text> </observationRange> </referenceRange> </observation> </component> < component> <observation moodCode="EVN" classCode="OBS"> < templateId root="216.840.1.100334.10..22.4.2" /> <id nullFlavor="NA " /> <code codeSystem="local" code="2160-0" displayName="Serum or plasma creatinine measurement (mass/volume)" /> <statusCode code= "completed" /> <effectiveTime value="715087953835" /> <value unit="mg/dL" xsi:type="PQ" value="0.86" /> <referenceRange> <observationRange> <text>0.60-1.30</text> </ observationRange> </referenceRange> </observation> </ component> <component> <observation moodCode="EVN" classCode="OBS"> <templateId root="2.16.840.1.986124.10..22.4.2" /> <id nullFlavor="NA" /> <code codeSystem="local" code="3097-3" displayName= "Serum or plasma urea nitrogen/creatinine mass ratio" /> <statusCode code="completed" /> <effectiveTime value="271587140469" /> < value unit="" xsi:type="PQ" value="16" /> <referenceRange> < observationRange> <text>NRG</text> </observationRange> </referenceRange> </observation> </component> < component> <observation moodCode="EVN" classCode="OBS"> < templateId root="2.16.840.1.807319.10.20.22.4.2" /> <id nullFlavor="NA " /> <code codeSystem="local" code="86010-3" displayName="Serum or plasma creatinine measurement with calculation of estimated glomerular filtration rate" /> <statusCode code="completed" /> < effectiveTime value="955550083453" /> <value unit="" xsi:type="PQ" value=">" /> <referenceRange> <observationRange> <text>NRG</text> </observationRange> </referenceRange > </observation> </component> <component> <observation moodCode="EVN" classCode="OBS"> <templateId root= "2.16.840.1.994213.10..22.4.2" /> <id nullFlavor="NA" /> < code codeSystem="local" code="2345-7" displayName="Serum or plasma glucose measurement (mass/volume)" /> <statusCode code="completed" /> <effectiveTime value="896764288589" /> <value unit="mg/dL" xsi:type="PQ " value="78" /> <referenceRange> <observationRange> <text>70-105</text> </observationRange> </ referenceRange> </observation> </component> <component> <observation moodCode="EVN" classCode="OBS"> <templateId root= "2.16.840.1.663336.10.20.22.4.2" /> <id nullFlavor="NA" /> < code codeSystem="local" code="04185-3" displayName="Serum or plasma calcium measurement (mass/volume)" /> <statusCode code="completed" /> <effectiveTime value="428009225562" /> <value unit="mg/dL" xsi:type="PQ " value="8.8" /> <referenceRange> <observationRange> <text>8.5-10.1</text> </observationRange> </ referenceRange> </observation> </component> <component> <observation moodCode="EVN" classCode="OBS"> <templateId root= "2.16.840.1.017946.10.20.22.4.2" /> <id nullFlavor="NA" /> < code codeSystem="local" code="1974-04" displayName="Serum or plasma total bilirubin measurement (mass/volume)" /> <statusCode code="completed" / > <effectiveTime value="005933934556" /> <value unit="mg/dL" xsi:type="PQ" value="1.7" /> <interpretationCode codeSystem="local" code="" /> <referenceRange> <observationRange> <text>0.1-1.0</text> </observationRange> </referenceRange > </observation> </component> <component> <observation moodCode="EVN" classCode="OBS"> <templateId root= "2.16.840.1.228930.10.20.22.4.2" /> <id nullFlavor="NA" /> < code codeSystem="local" code="6768-6" displayName="Serum or plasma alkaline phosphatase measurement (enzymatic activity/volume)" /> <statusCode code="completed" /> <effectiveTime value="039144432911" /> < value unit="U/L" xsi:type="PQ" value="53" /> <referenceRange> <observationRange> <text>40-136</text> </ observationRange> </referenceRange> </observation> </ component> <component> <observation moodCode="EVN" classCode="OBS"> <templateId root="2.16.840.1.064825.10.20.22.4.2" /> <id nullFlavor="NA" /> <code codeSystem="local" code="1919-10" displayName= "Serum or plasma aspartate aminotransferase measurement (enzymatic activity/ volume)" /> <statusCode code="completed" /> <effectiveTime value="547669524521" /> <value unit="U/L" xsi:type="PQ" value="15" /> <referenceRange> <observationRange> <text>5-34< /text> </observationRange> </referenceRange> </ observation> </component> <component> <observation moodCode= "EVN" classCode="OBS"> <templateId root="216.840.1.226448.10..22.4.2 " /> <id nullFlavor="NA" /> <code codeSystem="local" code= "17404-27" displayName="Serum or plasma alanine aminotransferase measurement ( enzymatic activity/volume)" /> <statusCode code="completed" /> <effectiveTime value="866584944510" /> <value unit="U/L" xsi:type="PQ " value="15" /> <referenceRange> <observationRange> <text>0-55</text> </observationRange> </referenceRange > </observation> </component> <component> <observation moodCode="EVN" classCode="OBS"> <templateId root= "2.16.840.1.647339.10..22.4.2" /> <id nullFlavor="NA" /> < code codeSystem="local" code="2885-2" displayName="Serum or plasma protein measurement (mass/volume)" /> <statusCode code="completed" /> <effectiveTime value="295309005572" /> <value unit="g/dL" xsi:type="PQ " value="6.7" /> <referenceRange> <observationRange> <text>6.4-8.2</text> </observationRange> </ referenceRange> </observation> </component> <component> <observation moodCode="EVN" classCode="OBS"> <templateId root= "05.07.840.1.464367.10.4.2" /> <id nullFlavor="NA" /> < code codeSystem="local" code="1751-7" displayName="Serum or plasma albumin measurement (mass/volume)" /> <statusCode code="completed" /> <effectiveTime value="978055353466" /> <value unit="g/dL" xsi:type="PQ " value="4.0" /> <referenceRange> <observationRange> <text>3.2-4.5</text> </observationRange> </ referenceRange> </observation> </component> </organizer> </entry > <entry> <organizer moodCode="EVN" classCode="BATTERY"> <templateId root="05.07.840.1.128983.10..4.1" /> <id nullFlavor="NA" /> <code codeSystem="local" code="3040-" displayName="Lipase" /> <statusCode code= "completed" /> <component> <observation moodCode="EVN" classCode= "OBS"> <templateId root="05.07.840.1.047998.22.4.2" /> < id nullFlavor="NA" /> <code codeSystem="local" code="30403" displayName="Lipase" /> <statusCode code="completed" /> < effectiveTime value="818324225914" /> <value unit="U/L" xsi:type="PQ" value="23" /> <referenceRange> <observationRange> <text>8-78</text> </observationRange> </referenceRange> </observation> </component> </organizer> </entry> <entry> < organizer moodCode="EVN" classCode="BATTERY"> <templateId root= "2.16.840.1.485919.10..22.4.1" /> <id nullFlavor="NA" /> <code codeSystem="local" code="68663-4" displayName="Serum or plasma choriogonadotropin measurement (units/volume)" /> <statusCode code= "completed" /> <component> <observation moodCode="EVN" classCode= "OBS"> <templateId root="2.16.840.1.705075.10..22.4.2" /> < id nullFlavor="NA" /> <code codeSystem="local" code="82975-6" displayName="Serum or plasma choriogonadotropin measurement (units/volume)" /> <statusCode code="completed" /> <effectiveTime value= "065468444418" /> <value unit="m[iU]/mL" xsi:type="PQ" value="402" /> <interpretationCode codeSystem="local" code="" /> < referenceRange> <observationRange> <text><5</text> </observationRange> </referenceRange> </observation> </component> </organizer> </entry> <entry> <organizer moodCode="EVN " classCode="BATTERY"> <templateId root="2.16.840.1.144156.10..22.4.1" / > <id nullFlavor="NA" /> <code codeSystem="local" code="16965-5" displayName="Serum or plasma choriogonadotropin measurement (units/volume)" /> <statusCode code="completed" /> <component> <observation moodCode="EVN" classCode="OBS"> <templateId root= "2.16.840.1.930020.10..22.4.2" /> <id nullFlavor="NA" /> < code codeSystem="local" code="49554-2" displayName="Serum or plasma choriogonadotropin measurement (units/volume)" /> <statusCode code= "completed" /> <effectiveTime value="827524941224" /> <value unit="m[iU]/mL" xsi:type="PQ" value="149" /> <interpretationCode codeSystem="local" code="" /> <referenceRange> < observationRange> <text><5</text> </observationRange > </referenceRange> </observation> </component> </ organizer> </entry> <entry> <organizer moodCode="EVN" classCode="BATTERY"> <templateId root="2.16.840.1.021719.10..22.4.1" /> <id nullFlavor= "NA" /> <code codeSystem="local" code="44228-3" displayName="Influenza virus A and B antigen detection" /> <statusCode code="completed" /> < component> <observation moodCode="EVN" classCode="OBS"> < templateId root="2.16.840.1.859894.10.20.22.4.2" /> <id nullFlavor="NA " /> <code codeSystem="local" code="FLURESULT" displayName="FLU RESULT " /> <statusCode code="completed" /> <effectiveTime value= "594287841551" /> <value unit="" xsi:type="PQ" value="NEGATIVE FOR INFLUENZA A AND B ANTIGENS BY IA" /> <referenceRange> < observationRange> <text>NRG</text> </observationRange> </referenceRange> </observation> </component> </ organizer> </entry> <entry> <organizer moodCode="EVN" classCode="BATTERY"> <templateId root="216.840.1.636346.10.20.22.4.1" /> <id nullFlavor= "NA" /> <code codeSystem="local" code="91778-1" displayName="Serum or plasma choriogonadotropin measurement (units/volume)" /> <statusCode code= "completed" /> <component> <observation moodCode="EVN" classCode= "OBS"> <templateId root="216.840.1.380372.10..22.4.2" /> < id nullFlavor="NA" /> <code codeSystem="local" code="08713-1" displayName="Serum or plasma choriogonadotropin measurement (units/volume)" /> <statusCode code="completed" /> <effectiveTime value= "820720815709" /> <value unit="m[iU]/mL" xsi:type="PQ" value="36" /> <interpretationCode codeSystem="local" code="" /> < referenceRange> <observationRange> <text><5</text> </observationRange> </referenceRange> </observation> </component> </organizer> </entry> <entry> <organizer moodCode="EVN " classCode="BATTERY"> <templateId root="216.840.1.576344.10.20.22.4.1" / > <id nullFlavor="NA" /> <code codeSystem="local" code="2118-8" displayName="Serum or plasma choriogonadotropin ( test) detection" /> <statusCode code="completed" /> <component> <observation moodCode="EVN" classCode="OBS"> <templateId root= "2.16.840.1.264980.10.20.22.4.2" /> <id nullFlavor="NA" /> < code codeSystem="local" code="2118-8" displayName="Serum or plasma choriogonadotropin ( test) detection" /> <statusCode code= "completed" /> <effectiveTime value="681575331728" /> <value unit="" xsi:type="PQ" value="POSITIVE" /> <referenceRange> < observationRange> <text>NEGATIVE</text> </ observationRange> </referenceRange> </observation> </ component> </organizer> </entry> <entry> <organizer moodCode="EVN" classCode="BATTERY"> <templateId root="2.16.840.1.702829.10.20.22.4.1" /> <id nullFlavor="NA" /> <code codeSystem="local" code="89593-8" displayName="Serum or plasma choriogonadotropin measurement (units/volume)" /> <statusCode code="completed" /> <component> <observation moodCode="EVN" classCode="OBS"> <templateId root= "2.16.840.1.262766.10.20.22.4.2" /> <id nullFlavor="NA" /> < code codeSystem="local" code="53952-1" displayName="Serum or plasma choriogonadotropin measurement (units/volume)" /> <statusCode code= "completed" /> <effectiveTime value="893949092935" /> <value unit="m[iU]/mL" xsi:type="PQ" value="828" /> <interpretationCode codeSystem="local" code="" /> <referenceRange> < observationRange> <text><5</text> </observationRange > </referenceRange> </observation> </component> </ organizer> </entry> <entry> <organizer moodCode="EVN" classCode="BATTERY"> <templateId root="216.840.1.147399.10.4.1" /> <id nullFlavor= "NA" /> <code codeSystem="local" code="74034-0" displayName="Serum or plasma choriogonadotropin measurement (units/volume)" /> <statusCode code= "completed" /> <component> <observation moodCode="EVN" classCode= "OBS"> <templateId root="05.07.840.1.619276.01.08.22.4.2" /> < id nullFlavor="NA" /> <code codeSystem="local" code="19659-3" displayName="Serum or plasma choriogonadotropin measurement (units/volume)" /> <statusCode code="completed" /> <effectiveTime value= "907539405654" /> <value unit="m[iU]/mL" xsi:type="PQ" value="3002" /> <interpretationCode codeSystem="local" code="" /> < referenceRange> <observationRange> <text><5</text> </observationRange> </referenceRange> </observation> </component> </organizer> </entry> <entry> <organizer moodCode="EVN " classCode="BATTERY"> <templateId root="05.07.840.1.046064.01.08.22.4.1" / > <id nullFlavor="NA" /> <code codeSystem="local" code="ORD61" displayName="Beta HCG" /> <statusCode code="completed" /> <component> <observation moodCode="EVN" classCode="OBS"> <templateId root= "16.840.1.087618.10.22.4.2" /> <id nullFlavor="NA" /> < code codeSystem="local" code="Zwi7385" displayName="Beta HCG" /> < statusCode code="completed" /> <effectiveTime value="111915905672" /> <value unit="mIU/mL" xsi:type="PQ" value="25868" /> < interpretationCode codeSystem="local" code="H" /> <referenceRange> <observationRange> <text>5-25</text> </ observationRange> </referenceRange> </observation> </ component> </organizer> </entry> <entry> <organizer moodCode="EVN" classCode="BATTERY"> <templateId root="216.840.1.357840.10.20.22.4.1" /> <id nullFlavor="NA" /> <code codeSystem="local" code="01394-1" displayName="Complete blood count (CBC) with automated white blood cell (WBC) differential" /> <statusCode code="completed" /> <component> < observation moodCode="EVN" classCode="OBS"> <templateId root= "2.16.840.1.286204.10.20.22.4.2" /> <id nullFlavor="NA" /> < code codeSystem="local" code="6690-2" displayName="Blood leukocytes automated count (number/volume)" /> <statusCode code="completed" /> < effectiveTime value="868995046375" /> <value unit="10*3/uL" xsi:type= "PQ" value="10.0" /> <referenceRange> <observationRange> <text>4.3-11.0</text> </observationRange> </ referenceRange> </observation> </component> <component> <observation moodCode="EVN" classCode="OBS"> <templateId root= "2.16.840.1.499186.10.20.22.4.2" /> <id nullFlavor="NA" /> < code codeSystem="local" code="789-8" displayName="Blood erythrocytes automated count (number/volume)" /> <statusCode code="completed" /> < effectiveTime value="331897194608" /> <value unit="10*6/uL" xsi:type= "PQ" value="4.62" /> <referenceRange> <observationRange> <text>4.35-5.85</text> </observationRange> </ referenceRange> </observation> </component> <component> <observation moodCode="EVN" classCode="OBS"> <templateId root= "2.16.840.1.313435.10.20.22.4.2" /> <id nullFlavor="NA" /> < code codeSystem="local" code="47532-6" displayName="Venous blood hemoglobin measurement (mass/volume)" /> <statusCode code="completed" /> <effectiveTime value="996011715278" /> <value unit="g/dL" xsi:type="PQ " value="13.6" /> <referenceRange> <observationRange> <text>11.5-16.0</text> </observationRange> </ referenceRange> </observation> </component> <component> <observation moodCode="EVN" classCode="OBS"> <templateId root= "2.16.840.1.020642.10.20.22.4.2" /> <id nullFlavor="NA" /> < code codeSystem="local" code="07165-8" displayName="Blood hematocrit (volume fraction)" /> <statusCode code="completed" /> <effectiveTime value="192511098001" /> <value unit="%" xsi:type="PQ" value="38" / > <referenceRange> <observationRange> <text>35- 52</text> </observationRange> </referenceRange> </ observation> </component> <component> <observation moodCode= "EVN" classCode="OBS"> <templateId root="2.16.840.1.215638.10..22.4.2 " /> <id nullFlavor="NA" /> <code codeSystem="local" code="787 -2" displayName="Automated erythrocyte mean corpuscular volume" /> < statusCode code="completed" /> <effectiveTime value="094330714676" /> <value unit="[foz_us]" xsi:type="PQ" value="83" /> < referenceRange> <observationRange> <text>80-99</text> </observationRange> </referenceRange> </observation> </component> <component> <observation moodCode="EVN" classCode= "OBS"> <templateId root="216.840.1.203487.10..4.2" /> < id nullFlavor="NA" /> <code codeSystem="local" code="785-6" displayName ="Automated erythrocyte mean corpuscular hemoglobin (mass per erythrocyte)" /> <statusCode code="completed" /> <effectiveTime value= "757167148463" /> <value unit="pg" xsi:type="PQ" value="29" /> <referenceRange> <observationRange> <text>25-34</text > </observationRange> </referenceRange> </observation > </component> <component> <observation moodCode="EVN" classCode="OBS"> <templateId root="2.16.840.1.157567.10..22.4.2" /> <id nullFlavor="NA" /> <code codeSystem="local" code="786-4" displayName="Automated erythrocyte mean corpuscular hemoglobin concentration measurement (mass/volume)" /> <statusCode code="completed" /> <effectiveTime value="716929524388" /> <value unit="g/dL" xsi:type="PQ " value="36" /> <referenceRange> <observationRange> <text>32-36</text> </observationRange> </ referenceRange> </observation> </component> <component> <observation moodCode="EVN" classCode="OBS"> <templateId root= "2.16.840.1.881339.10.20.22.4.2" /> <id nullFlavor="NA" /> < code codeSystem="local" code="788-0" displayName="Automated erythrocyte distribution width ratio" /> <statusCode code="completed" /> < effectiveTime value="759105738924" /> <value unit="%" xsi:type="PQ " value="12.6" /> <referenceRange> <observationRange> <text>10.0-14.5</text> </observationRange> </ referenceRange> </observation> </component> <component> <observation moodCode="EVN" classCode="OBS"> <templateId root= "216.840.1.956424.10..22.4.2" /> <id nullFlavor="NA" /> < code codeSystem="local" code="777-3" displayName="Automated blood platelet count (count/volume)" /> <statusCode code="completed" /> < effectiveTime value="697837308016" /> <value unit="10*3/uL" xsi:type= "PQ" value="268" /> <referenceRange> <observationRange> <text>130-400</text> </observationRange> </ referenceRange> </observation> </component> <component> <observation moodCode="EVN" classCode="OBS"> <templateId root= "2.16.840.1.435207.10.20.22.4.2" /> <id nullFlavor="NA" /> < code codeSystem="local" code="24803-1" displayName="Automated blood platelet mean volume measurement" /> <statusCode code="completed" /> < effectiveTime value="849185663421" /> <value unit="[[facility]]" xsi:type= "PQ" value="9.0" /> <referenceRange> <observationRange> <text>7.4-10.4</text> </observationRange> </ referenceRange> </observation> </component> <component> <observation moodCode="EVN" classCode="OBS"> <templateId root= "2.16.840.1.282320.10.22.4.2" /> <id nullFlavor="NA" /> < code codeSystem="local" code="770-8" displayName="Automated blood neutrophils/ 100 leukocytes" /> <statusCode code="completed" /> < effectiveTime value="951351673898" /> <value unit="%" xsi:type="PQ " value="79" /> <interpretationCode codeSystem="local" code="" /> <referenceRange> <observationRange> <text>42-75</ text> </observationRange> </referenceRange> </ observation> </component> <component> <observation moodCode= "EVN" classCode="OBS"> <templateId root="2.16.840.1.764006.10.2022.4.2 " /> <id nullFlavor="NA" /> <code codeSystem="local" code="736 -9" displayName="Automated blood lymphocytes/100 leukocytes" /> < statusCode code="completed" /> <effectiveTime value="725493469691" /> <value unit="%" xsi:type="PQ" value="14" /> < referenceRange> <observationRange> <text>12-44</text> </observationRange> </referenceRange> </observation> </component> <component> <observation moodCode="EVN" classCode= "OBS"> <templateId root="2.16.840.1.590985.10..22.4.2" /> < id nullFlavor="NA" /> <code codeSystem="local" code="81460-5" displayName="Blood monocytes/100 leukocytes" /> <statusCode code= "completed" /> <effectiveTime value="257920865466" /> <value unit="%" xsi:type="PQ" value="6" /> <referenceRange> < observationRange> <text>0-12</text> </observationRange> </referenceRange> </observation> </component> < component> <observation moodCode="EVN" classCode="OBS"> < templateId root="2.16.840.1.853750.10..4.2" /> <id nullFlavor="NA " /> <code codeSystem="local" code="713-8" displayName="Automated blood eosinophils/100 leukocytes" /> <statusCode code="completed" /> <effectiveTime value="779220141900" /> <value unit="%" xsi: type="PQ" value="0" /> <referenceRange> <observationRange> <text>0-10</text> </observationRange> </ referenceRange> </observation> </component> <component> <observation moodCode="EVN" classCode="OBS"> <templateId root= "2.16.840.1.520921.10..22.4.2" /> <id nullFlavor="NA" /> < code codeSystem="local" code="706-2" displayName="Automated blood basophils/100 leukocytes" /> <statusCode code="completed" /> <effectiveTime value="520774916322" /> <value unit="%" xsi:type="PQ" value="0" /> <referenceRange> <observationRange> <text>0-10 </text> </observationRange> </referenceRange> </ observation> </component> <component> <observation moodCode= "EVN" classCode="OBS"> <templateId root="2.16.840.1.037993.10.22.4.2 " /> <id nullFlavor="NA" /> <code codeSystem="local" code="751 -8" displayName="Blood neutrophils automated count (number/volume)" /> <statusCode code="completed" /> <effectiveTime value="874280553834" /> <value unit="10*3" xsi:type="PQ" value="7.9" /> < interpretationCode codeSystem="local" code="" /> <referenceRange> <observationRange> <text>1.8-7.8</text> </ observationRange> </referenceRange> </observation> </ component> <component> <observation moodCode="EVN" classCode="OBS"> <templateId root="2.16.840.1.040494.10..22.4.2" /> <id nullFlavor="NA" /> <code codeSystem="local" code="731-0" displayName= "Blood lymphocytes automated count (number/volume)" /> <statusCode code ="completed" /> <effectiveTime value="278741231571" /> <value unit="10*3" xsi:type="PQ" value="1.4" /> <referenceRange> < observationRange> <text>1.0-4.0</text> </ observationRange> </referenceRange> </observation> </ component> <component> <observation moodCode="EVN" classCode="OBS"> <templateId root="16.840.1.472882.10.20.22.4.2" /> <id nullFlavor="NA" /> <code codeSystem="local" code="742-7" displayName= "Blood monocytes automated count (number/volume)" /> <statusCode code= "completed" /> <effectiveTime value="463020088897" /> <value unit="10*3" xsi:type="PQ" value="0.6" /> <referenceRange> < observationRange> <text>0.0-1.0</text> </ observationRange> </referenceRange> </observation> </ component> <component> <observation moodCode="EVN" classCode="OBS"> <templateId root="05.07.840.1.347351.22.4.2" /> <id nullFlavor="NA" /> <code codeSystem="local" code="711-2" displayName= "Automated eosinophil count" /> <statusCode code="completed" /> <effectiveTime value="757840406437" /> <value unit="10*3/uL" xsi: type="PQ" value="0.0" /> <referenceRange> <observationRange > <text>0.0-0.3</text> </observationRange> </ referenceRange> </observation> </component> <component> <observation moodCode="EVN" classCode="OBS"> <templateId root= "05.07.840.1.121527.102022.4.2" /> <id nullFlavor="NA" /> < code codeSystem="local" code="704-7" displayName="Automated blood basophil count (count/volume)" /> <statusCode code="completed" /> < effectiveTime value="114314015230" /> <value unit="10*3/uL" xsi:type= "PQ" value="0.0" /> <referenceRange> <observationRange> <text>0.0-0.1</text> </observationRange> </ referenceRange> </observation> </component> </organizer> </entry > <entry> <organizer moodCode="EVN" classCode="BATTERY"> <templateId root="2.16.840.1.449557.10..22.4.1" /> <id nullFlavor="NA" /> <code codeSystem="local" code="65164-8" displayName="Comprehensive metabolic panel" / > <statusCode code="completed" /> <component> <observation moodCode="EVN" classCode="OBS"> <templateId root= "2.16.840.1.323943.10..22.4.2" /> <id nullFlavor="NA" /> < code codeSystem="local" code="2951-2" displayName="Serum or plasma sodium measurement (moles/volume)" /> <statusCode code="completed" /> <effectiveTime value="249925825850" /> <value unit="mmol/L" xsi:type= "PQ" value="137" /> <referenceRange> <observationRange> <text>135-145</text> </observationRange> </ referenceRange> </observation> </component> <component> <observation moodCode="EVN" classCode="OBS"> <templateId root= "216.840.1.016300.10..22.4.2" /> <id nullFlavor="NA" /> < code codeSystem="local" code="2823-3" displayName="Serum or plasma potassium measurement (moles/volume)" /> <statusCode code="completed" /> <effectiveTime value="850752000136" /> <value unit="mmol/L" xsi:type= "PQ" value="3.6" /> <referenceRange> <observationRange> <text>3.6-5.0</text> </observationRange> </ referenceRange> </observation> </component> <component> <observation moodCode="EVN" classCode="OBS"> <templateId root= "05.07.840.1.465103.10.20.22.4.2" /> <id nullFlavor="NA" /> < code codeSystem="local" code="" displayName="Serum or plasma chloride measurement (moles/volume)" /> <statusCode code="completed" /> <effectiveTime value="098887347331" /> <value unit="mmol/L" xsi:type= "PQ" value="106" /> <referenceRange> <observationRange> <text>98-107</text> </observationRange> </ referenceRange> </observation> </component> <component> <observation moodCode="EVN" classCode="OBS"> <templateId root= "05.07.840.1.625350.10...4.2" /> <id nullFlavor="NA" /> < code codeSystem="local" code="2027-11" displayName="Carbon dioxide" /> < statusCode code="completed" /> <effectiveTime value="940887856897" /> <value unit="mmol/L" xsi:type="PQ" value="20" /> < interpretationCode codeSystem="local" code="" /> <referenceRange> <observationRange> <text>21-32</text> </ observationRange> </referenceRange> </observation> </ component> <component> <observation moodCode="EVN" classCode="OBS"> <templateId root="05.07.840.1.989309.10..22.4.2" /> <id nullFlavor="NA" /> <code codeSystem="local" code="40847-5" displayName= "Serum or plasma anion gap determination (moles/volume)" /> < statusCode code="completed" /> <effectiveTime value="629614977751" /> <value unit="mmol/L" xsi:type="PQ" value="11" /> < referenceRange> <observationRange> <text>5-14</text> </observationRange> </referenceRange> </observation> </component> <component> <observation moodCode="EVN" classCode= "OBS"> <templateId root="2.16.840.1.013798.10.20.22.4.2" /> < id nullFlavor="NA" /> <code codeSystem="local" code="3094-0" displayName="Serum or plasma urea nitrogen measurement (mass/volume)" /> <statusCode code="completed" /> <effectiveTime value="949484456032" /> <value unit="mg/dL" xsi:type="PQ" value="7" /> < referenceRange> <observationRange> <text>7-18</text> </observationRange> </referenceRange> </observation> </component> <component> <observation moodCode="EVN" classCode= "OBS"> <templateId root="2.16.840.1.210874.10.20.22.4.2" /> < id nullFlavor="NA" /> <code codeSystem="local" code="2160-0" displayName="Serum or plasma creatinine measurement (mass/volume)" /> < statusCode code="completed" /> <effectiveTime value="427445056918" /> <value unit="mg/dL" xsi:type="PQ" value="0.72" /> < referenceRange> <observationRange> <text>0.60-1.30</text > </observationRange> </referenceRange> </observation > </component> <component> <observation moodCode="EVN" classCode="OBS"> <templateId root="216.840.1.662449.10.20.22.4.2" /> <id nullFlavor="NA" /> <code codeSystem="local" code="3097-3" displayName="Serum or plasma urea nitrogen/creatinine mass ratio" /> < statusCode code="completed" /> <effectiveTime value="950366097891" /> <value unit="" xsi:type="PQ" value="10" /> <referenceRange> <observationRange> <text>NRG</text> </ observationRange> </referenceRange> </observation> </ component> <component> <observation moodCode="EVN" classCode="OBS"> <templateId root="216.840.1.919233.10..22.4.2" /> <id nullFlavor="NA" /> <code codeSystem="local" code="80100-7" displayName= "Serum or plasma creatinine measurement with calculation of estimated glomerular filtration rate" /> <statusCode code="completed" /> <effectiveTime value="898325833375" /> <value unit="" xsi:type="PQ" value=">" /> <referenceRange> <observationRange> <text>NRG</text> </observationRange> </referenceRange > </observation> </component> <component> <observation moodCode="EVN" classCode="OBS"> <templateId root= "16.840.1.493801.10.20.22.4.2" /> <id nullFlavor="NA" /> < code codeSystem="local" code="2345-7" displayName="Serum or plasma glucose measurement (mass/volume)" /> <statusCode code="completed" /> <effectiveTime value="475387851458" /> <value unit="mg/dL" xsi:type="PQ " value="84" /> <referenceRange> <observationRange> <text>70-105</text> </observationRange> </ referenceRange> </observation> </component> <component> <observation moodCode="EVN" classCode="OBS"> <templateId root= "216.840.1.937388.10.20.22.4.2" /> <id nullFlavor="NA" /> < code codeSystem="local" code="48672-1" displayName="Serum or plasma calcium measurement (mass/volume)" /> <statusCode code="completed" /> <effectiveTime value="706822028095" /> <value unit="mg/dL" xsi:type="PQ " value="9.2" /> <referenceRange> <observationRange> <text>8.5-10.1</text> </observationRange> </ referenceRange> </observation> </component> <component> <observation moodCode="EVN" classCode="OBS"> <templateId root= "05.07.840.1.188673.10.20.22.4.2" /> <id nullFlavor="NA" /> < code codeSystem="local" code="1975" displayName="Serum or plasma total bilirubin measurement (mass/volume)" /> <statusCode code="completed" / > <effectiveTime value="240541765480" /> <value unit="mg/dL" xsi:type="PQ" value="1.3" /> <interpretationCode codeSystem="local" code="" /> <referenceRange> <observationRange> <text>0.1-1.0</text> </observationRange> </referenceRange > </observation> </component> <component> <observation moodCode="EVN" classCode="OBS"> <templateId root= "16.840.1.613631.10.20.22.4.2" /> <id nullFlavor="NA" /> < code codeSystem="local" code="6768-6" displayName="Serum or plasma alkaline phosphatase measurement (enzymatic activity/volume)" /> <statusCode code="completed" /> <effectiveTime value="774439683195" /> < value unit="U/L" xsi:type="PQ" value="46" /> <referenceRange> <observationRange> <text>40-136</text> </ observationRange> </referenceRange> </observation> </ component> <component> <observation moodCode="EVN" classCode="OBS"> <templateId root="2.16.840.1.081192.10.20.22.4.2" /> <id nullFlavor="NA" /> <code codeSystem="local" code="192" displayName= "Serum or plasma aspartate aminotransferase measurement (enzymatic activity/ volume)" /> <statusCode code="completed" /> <effectiveTime value="317865403523" /> <value unit="U/L" xsi:type="PQ" value="15" /> <referenceRange> <observationRange> <text>5-34< /text> </observationRange> </referenceRange> </ observation> </component> <component> <observation moodCode= "EVN" classCode="OBS"> <templateId root="2.16.840.1.866636.10.20.22.4.2 " /> <id nullFlavor="NA" /> <code codeSystem="local" code= "17404-27" displayName="Serum or plasma alanine aminotransferase measurement ( enzymatic activity/volume)" /> <statusCode code="completed" /> <effectiveTime value="622353034644" /> <value unit="U/L" xsi:type="PQ " value="13" /> <referenceRange> <observationRange> <text>0-55</text> </observationRange> </referenceRange > </observation> </component> <component> <observation moodCode="EVN" classCode="OBS"> <templateId root= "2.16.840.1.497494.10.20.22.4.2" /> <id nullFlavor="NA" /> < code codeSystem="local" code="2885-2" displayName="Serum or plasma protein measurement (mass/volume)" /> <statusCode code="completed" /> <effectiveTime value="863270945693" /> <value unit="g/dL" xsi:type="PQ " value="7.0" /> <referenceRange> <observationRange> <text>6.4-8.2</text> </observationRange> </ referenceRange> </observation> </component> <component> <observation moodCode="EVN" classCode="OBS"> <templateId root= "2.16.840.1.387855.10..22.4.2" /> <id nullFlavor="NA" /> < code codeSystem="local" code="1751-7" displayName="Serum or plasma albumin measurement (mass/volume)" /> <statusCode code="completed" /> <effectiveTime value="295865323022" /> <value unit="g/dL" xsi:type="PQ " value="4.2" /> <referenceRange> <observationRange> <text>3.2-4.5</text> </observationRange> </ referenceRange> </observation> </component> </organizer> </entry > <entry> <organizer moodCode="EVN" classCode="BATTERY"> <templateId root="2.16.840.1.831302.10.20.22.4.1" /> <id nullFlavor="NA" /> <code codeSystem="local" code="2777-1" displayName="Serum or plasma phosphate measurement (mass/volume)" /> <statusCode code="completed" /> < component> <observation moodCode="EVN" classCode="OBS"> < templateId root="2.16.840.1.723611.10..22.4.2" /> <id nullFlavor="NA " /> <code codeSystem="local" code="2777-1" displayName="Serum or plasma phosphate measurement (mass/volume)" /> <statusCode code= "completed" /> <effectiveTime value="369956296985" /> <value unit="mg/dL" xsi:type="PQ" value="2.4" /> <referenceRange> < observationRange> <text>2.3-4.7</text> </ observationRange> </referenceRange> </observation> </ component> </organizer> </entry> <entry> <organizer moodCode="EVN" classCode="BATTERY"> <templateId root="2.16.840.1.071467.10..22.4.1" /> <id nullFlavor="NA" /> <code codeSystem="local" code="" displayName="Magnesium" /> <statusCode code="completed" /> <component > <observation moodCode="EVN" classCode="OBS"> <templateId root= "2.16.840.1.314016.10.20.22.4.2" /> <id nullFlavor="NA" /> < code codeSystem="local" code="" displayName="Magnesium" /> < statusCode code="completed" /> <effectiveTime value="154978462552" /> <value unit="mg/dL" xsi:type="PQ" value="1.9" /> < referenceRange> <observationRange> <text>1.8-2.4</text> </observationRange> </referenceRange> </observation > </component> </organizer> </entry></section> Encounters ACCT No. Visit Date/Time Discharge Status Pt. Type Provider Facility Loc./Unit Complaint [id number] 08/19/2017 11:25:00 08/21/2017 09:57:00 DIS Inpatient PATRICK RAE DO [facility] LDRP HYPEREMESIS [id number] 08/11/2017 12:07:00 08/11/2017 23:59:59 CLS Outpatient BRAYAN PEREZ [facility] LAB EARLY [id number] 08/08/2017 15:21:00 08/08/2017 19:07:00 DIS Emergency BRAYAN PEREZ [facility] ER STOMACH CRAMPS [id number] 05/05/2017 10:21:00 05/05/2017 23:59:59 CLS Outpatient LIGIA KING MD [facility] LAB HCG QUANT [id number] 05/01/2017 10:23:00 05/01/2017 23:59:59 CLS Outpatient BRAYAN PEREZ [facility] LAB THREATENED MISCARRIAGE, LOWER ABD PAIN [id number] 04/29/2017 14:31:00 04/29/2017 17:50:00 DIS Emergency BRAYAN PEREZ [facility] ER ABD PAIN [id number] 09/16/2015 12:29:00 09/16/2015 17:30:00 DIS Outpatient BRIDGER BLUE MD [facility] BILATERAL LABIAL HYPERTROPHY [id number] 09/13/2015 14:05:00 09/13/2015 23:59:59 CLS Outpatient BRIDGER BLUE MD [facility] PREOP BILATERAL LABIAL HYPERTROPHY [id number] 11/30/2014 11:52:00 11/30/2014 14:36:00 DIS Outpatient MONIQUE SOLITARIO MD [facility] ULCERS;EPIGASTRIC PAIN;BLOOD IN STOOLS;DIARRHEA [id number] 11/29/2014 05:40:00 11/29/2014 23:59:59 CLS Outpatient MONIQUE SOLITARIO MD [facility] PREOP ULCERS;EPIGASTRIC PAIN;BLOOD IN STOOLS;DIARRHEA [id number] 11/26/2014 19:32:00 11/26/2014 22:14:00 DIS Emergency LIGIA ANTON DO [facility] ER FEVER,VOMITING,SORE THROAT [id number] 05/06/2014 10:49:00 05/06/2014 13:26:00 DIS Emergency LIGIA ANTON DO [facility] ER SUICIDE ATTEMPT [id number] 04/05/2014 09:35:00 04/05/2014 11:12:00 DIS Emergency JAVI GARLAND MD [facility] ER SYNCOPAL EPISODE [id number] 02/05/2014 09:55:00 02/05/2014 12:35:00 DIS Outpatient SANDRA LIND DO [facility] 4THo DEHYDRATION [id number] 03/16/2013 20:43:00 03/16/2013 23:01:00 DIS Emergency CHARLES MIRANDA MD [facility] ER SUICIDE ATTEMPT [id number] 12/24/2012 20:12:00 12/24/2012 21:57:00 DIS Emergency MELQUIADES OCHOA MD [facility] ER VOMITING [id number] 09/01/2017 13:13:00 Document Registration [id number] 06/08/2012 06:30:00 Document Registration [id number] 06/01/2012 07:42:00 Document Registration [id number] 02/05/2011 20:35:00 Document Registration [facility] 06/03/2016 15:57:53 ACT Document Registration [id number] 08/10/2016 15:51:00 08/10/2016 23:59:[address] [place] [id number] 12/14/2016 10:00:00 12/14/2016 23:59:59 CLS [facility] [id number] 08/17/2017 05:12:00 08/17/2017 06:25:00 [id number] 03/03/2017 13:58:00 03/03/2017 23:59:00 DIS Outpatient Ligia King [id number] 02/26/2017 14:47:00 02/26/2017 23:59:00 DIS Outpatient Ligia King [id number] 12/29/2016 04:33:00 12/29/2016 05:13:00 DIS Outpatient REINALDO BOBO [id number] 12/29/2016 05:03:45 Document Registration [id number] 06/03/2016 10:00:00 06/03/2016 10:28:00 DIS Emergency Tiffanie MUÑIZ, [facility] [id number] 04/09/2016 08:28:00 04/12/2016 12:27:00 DIS Outpatient Lisa MU[facility]IZ, [facility] [id number] 02/24/2016 00:55:00 02/24/2016 03:20:00 DIS Emergency Tiffanie MUÑIZ, [facility] [id number] 01/31/2016 19:11:00 01/31/2016 21:26:00 DIS Emergency Za MUÑIZ, [facility] 11/30/2014 11:52:47 ACT Document Registration [id number] 03/08/2017 16:19:00 Document Registration [id number] 09/16/2016 09:17:17 09/16/2016 23:59:59 [facility] Outpatient Sandra Lind
[2017-09-10] MEDS ORDERED: ONDA4TAB8 SL (09:30)
== END 2017-09-02 14:22 | disposition home or self-care (01) ==
LOC: LDRP 11:54 → WSo 12:02 → LDRP 12:02 → WSo 09-02 14:45 → EDSTATUS 09-06 15:46
PROVIDERS: ADMIT Obstetrics & Gynecology; ATTEND Obstetrics & Gynecology
DX: O21.0 Mild hyperemesis gravidarum (principal)
CPT/HCPCS: 80053; 83735; 84100; 85025; 96361; 96374; 96375; 96376; G0378

== ENCOUNTER 2017-09-21 09:18 | Emergency (ER) | payer BC, MEDICAID ==
[~2017-09-21 09:18] MED LIST changes: +ONDA4TAB8 SL; +SERT25TA PO
== END 2017-09-21 09:30 | disposition home or self-care (01) ==
LOC: EDUNIT# 09:18 → ER 09:21
DX: O99.89 Other specified diseases and conditions complicating pregnancy, childbirth and the puerperium (principal); R42 Dizziness and giddiness; O21.9 Vomiting of pregnancy, unspecified; Z3A.11 11 weeks gestation of pregnancy

== ENCOUNTER 2017-09-21 09:35 | Outpatient (CLI) | payer BC, MEDICAID ==
[~2017-09-21] VITALS: Ht 157.5 cm; Wt 49.9 kg
[2017-09-21 09:45] VITALS: BP 120/83
[2017-09-21] MEDS ORDERED: PROMETHAZINE INJ 25 MG/ML (PHENERGAN) AMP IVP PRN (09:45)
[2017-09-21] MEDS: D5 LR IV SOLUTION 1,000 ML IV SCH ×2 (10:15→17:47)
[2017-09-21 10:16] LABS: BASOPHILS % (AUTO) 0 % (0-10); EOSINOPHILS # (AUTO) 0.1 10^3/uL (0.0-0.3); EOSINOPHILS % (AUTO) 1 % (0-10); HEMATOCRIT 39 % (35-52); HEMOGLOBIN 13.7 G/DL (11.5-16.0); LYMPHOCYTES # (AUTO) 1.7 X 10^3 (1.0-4.0); LYMPHOCYTES % (AUTO) 20 % (12-44); MEAN CORPUSCULAR HEMOGLOBIN 30 PG (25-34); MEAN CORPUSCULAR HGB CONC 36 G/DL (32-36); MEAN CORPUSCULAR VOLUME 83 FL (80-99); MEAN PLATELET VOLUME 9.1 FL (7.4-10.4); MONOCYTES # (AUTO) 0.4 X 10^3 (0.0-1.0); MONOCYTES % (AUTO) 5 % (0-12); NEUTROPHILS # (AUTO) 6.3 X 10^3 (1.8-7.8); NEUTROPHILS % (AUTO) 75 % (42-75); PLATELET COUNT 265 10^3/uL (130-400); RED BLOOD COUNT 4.64 10^6/uL (4.35-5.85); RED CELL DISTRIBUTION WIDTH 12.8 % (10.0-14.5); WHITE BLOOD COUNT 8.5 10^3/uL (4.3-11.0)
[2017-09-21] MEDS: ONDANSETRON 4 MG/2 ML (SDV) Z0FRAN IVP PRN ×2 (10:26→18:37)
[2017-09-21 10:46] LABS: ALANINE AMINOTRANSFERASE 9 U/L (0-55); ALKALINE PHOSPHATASE 37 U/L (40-136); BILIRUBIN,TOTAL 1.6 MG/DL (0.1-1.0); BUN/CREATININE RATIO 10; CALCIUM 9.4 MG/DL (8.5-10.1); CARBON DIOXIDE 20 MMOL/L (21-32); CHLORIDE 105 MMOL/L (98-107); CREATININE SERUM 0.81 MG/DL (0.60-1.30); GFR ESTIMATED > 60; GLUCOSE 87 MG/DL (70-105); POTASSIUM 3.3 MMOL/L (3.6-5.0); SODIUM 137 MMOL/L (135-145); TOTAL PROTEIN 6.9 GM/DL (6.4-8.2)
[2017-09-21] MEDS ORDERED: BISACODYL 10 MG SUPP (DULCOLAX) PR ONE (11:45)
[2017-09-21] MEDS ORDERED: PROCHLORPERAZINE 10 MG/2ML INJ (COMPAZINE) IV PRN (11:45)
[2017-09-21] MEDS ORDERED: FAMOTIDINE 20MG/2ML IV (PEPCID) IVP ONE (11:45)
[2017-09-21] MEDS ORDERED: SUCRALFATE 1 GM (CARAFATE) TAB PO ONE (11:45)
--- NOTE | 2017-09-21 11:48 | History & Physical-OB ---
OB - Chief Complaint & HPI Date/Time Date of Admission: Date of Admission: 09/21/2017 Time Seen by Provider: 11:30 Chief Complaint/History Hx : 2 Hx Para: 0 Expected Date of Delivery: Apr 10, 2018 Gestational Age in Weeks: 11 Gestational Age in Days: 2 Other reason for admission: Intractable nausea and vomiting Admission Nurse Assessment Rev: Yes History of Labs O pos Antibody neg RI RPR NR HBsAg NR HIV NR GC neg Allergies and Home Medications Allergies Coded Allergies: hydrocodone (Unverified Allergy, Intermediate, HIVES, 09/16/15) penicillin (Unverified Allergy, Mild, RASH, 09/16/15) Home Medications Doxylamine/Pyridoxine HCl 1 Each Tablet.dr, 2 EACH PO HS Prescribed by: PATRICK RAE on 08/20/17 140 Nitrofurantoin Monohyd/M-Cryst 100 Mg Capsule, 1 TAB PO BID Prescribed by: CHARLES COURTNEY on 09/15/17 1511 Ondansetron 4 Mg Tab.rapdis, 4 MG SL Q4H PRN for NAUSEA/VOMITING-1ST LINE Prescribed by: LIDIA GAYTAN on 09/10/17 0930 Prochlorperazine 25 Mg Supp.rect, 25 MG RC BID Prescribed by: PATRICK RAE on 08/20/17 1406 Prochlorperazine Maleate 10 Mg Tablet, 10 MG PO BID Prescribed by: PATRICK RAE on 08/20/17 140 Scopolamine 1 Each Patch.td72, 1.5 MG TOP Q72H Prescribed by: PATRICK RAE on 08/20/17 1406 Sertraline HCl 25 Mg Tablet, 25 MG PO DAILY Prescribed by: CHARLES COURTNEY on 09/15/17 1511 Patient Home Medication List Home Medication List Reviewed: Yes OB - History Hx of Present Care: Yes Delivery History Hx Blood Disorders: No Patient Past Medical History Hx of Bulemia Social History/Family History Sexually Transmitted Disease: No 2nd Hand Smoke Exposure: Yes Immunizations Tetanus Booster (TDap): More than 5yrs Date of Influenza Vaccine: Dec 20, 2013 OB - Admission Exam Physical Exam HEENT: NCAT Heart: Rhythm Normal Lungs: Clear Heart Rate: 150's Labs Laboratory Tests Test 09/21/17 09:56 Range/Units White Blood Count 8.5 4.3-11.0 10^3/uL Red Blood Count 4.64 4.35-5.85 10^6/uL Hemoglobin 13.7 11.5-16.0 G/DL Hematocrit 39 35-52 % Mean Corpuscular Volume 83 80-99 FL Mean Corpuscular Hemoglobin 30 25-34 PG Mean Corpuscular Hemoglobin Concent 36 32-36 G/DL Red Cell Distribution Width 12.8 10.0-14.5 % Platelet Count 265 130-400 10^3/uL Mean Platelet Volume 9.1 7.4-10.4 FL Neutrophils (%) (Auto) 75 42-75 % Lymphocytes (%) (Auto) 20 12-44 % Monocytes (%) (Auto) 5 0-12 % Eosinophils (%) (Auto) 1 0-10 % Basophils (%) (Auto) 0 0-10 % Neutrophils # (Auto) 6.3 1.8-7.8 X 10^3 Lymphocytes # (Auto) 1.7 1.0-4.0 X 10^3 Monocytes # (Auto) 0.4 0.0-1.0 X 10^3 Eosinophils # (Auto) 0.1 0.0-0.3 10^3/uL Basophils # (Auto) 0.0 0.0-0.1 10^3/uL Sodium Level 137 135-145 MMOL/L Potassium Level 3.3 L 3.6-5.0 MMOL/L Chloride Level 105 98-107 MMOL/L Carbon Dioxide Level 20 L 21-32 MMOL/L Anion Gap 12 5-14 MMOL/L Blood Urea Nitrogen 8 7-18 MG/DL Creatinine 0.81 0.60-1.30 MG/DL Estimat Glomerular Filtration Rate > 60 BUN/Creatinine Ratio 10 Glucose Level 87 70-105 MG/DL Calcium Level 9.4 8.5-10.1 MG/DL Total Bilirubin 1.6 H 0.1-1.0 MG/DL Aspartate Amino Transf (AST/SGOT) 14 5-34 U/L Alanine Aminotransferase (ALT/SGPT) 9 0-55 U/L Alkaline Phosphatase 37 L 40-136 U/L Total Protein 6.9 6.4-8.2 GM/DL Albumin 4.0 3.2-4.5 GM/DL Thyroid Stimulating Hormone (TSH) 0.40 0.35-4.94 UIU/ML OB - Assessment/Plan/Diagnosis Assessment Assessment: observation Admission Dx 22 yo @ 11weeks 2 days Hyperemesis gravidarum Intractable nausea/vomitting Hypokalemia Admission Status: Observation Reason for Inpatient Admission: 22 yo @ 11weeks 2 days Hyperemesis gravidarum Intractable nausea/vomitting Hypokalemia Plan Other Plan IVF hydration Progress diet as tolerated Antiemetics as needed Will consider discharge once tolerating bland diet KAYODE WILSON DO Sep 21, 2017 11:48 am
[2017-09-21 12:00] VITALS: BP 105/81
[2017-09-21] MEDS ORDERED: raNItidine 50 MG/NS 50 ML IVPB IV SCH ×2 (12:37)
[2017-09-21 15:52] VITALS: BP 96/53
[2017-09-21 19:15] VITALS: BP 104/67
[2017-09-22] MEDS ORDERED: FAMOTIDINE 20MG/2ML IV (PEPCID) IVP SCH (09:00)
== END 2017-09-21 19:20 | disposition home or self-care (01) ==
LOC: WSo 09:35 → LDRP 09:36 → WSo 19:20
PROVIDERS: ATTEND Obstetrics & Gynecology
DX: O21.1 Hyperemesis gravidarum with metabolic disturbance (principal); Z3A.11 11 weeks gestation of pregnancy
CPT/HCPCS: 36415; 80053; 84443; 85025; 96361; 96374; 96375; 96376; 99214

== ENCOUNTER 2017-10-04 14:07 | Outpatient (CLI) | payer BC, MEDICAID ==
[~2017-10-04] VITALS: Ht 157.5 cm; Wt 50.3 kg
[2017-10-04 14:10] VITALS: BP 114/77
[2017-10-04] MEDS ORDERED: THIAMINE INJECTION 100 MG, FOLIC ACID INJECTION 1 MG, VITAMIN MULTI INJECTION 10 ML, MA... IV NR ×5 (15:00)
[2017-10-04] MEDS ORDERED: D5 LR IV SOLUTION 1,000 ML IV SCH (15:00)
[2017-10-04] MEDS ORDERED: PROCHLORPERAZINE 10 MG/2ML INJ (COMPAZINE) IV NR (15:00)
[2017-10-04 15:11] LABS: BASOPHILS % (AUTO) 0 % (0-10); EOSINOPHILS % (AUTO) 0 % (0-10); HEMATOCRIT 38 % (35-52); HEMOGLOBIN 13.5 G/DL (11.5-16.0); LYMPHOCYTES % (AUTO) 22 % (12-44); MEAN CORPUSCULAR HEMOGLOBIN 30 PG (25-34); MEAN CORPUSCULAR HGB CONC 36 G/DL (32-36); MEAN CORPUSCULAR VOLUME 84 FL (80-99); MEAN PLATELET VOLUME 8.9 FL (7.4-10.4); MONOCYTES # (AUTO) 0.5 X 10^3 (0.0-1.0); MONOCYTES % (AUTO) 6 % (0-12); NEUTROPHILS # (AUTO) 6.4 X 10^3 (1.8-7.8); NEUTROPHILS % (AUTO) 72 % (42-75); PLATELET COUNT 211 10^3/uL (130-400); RED BLOOD COUNT 4.47 10^6/uL (4.35-5.85); RED CELL DISTRIBUTION WIDTH 12.3 % (10.0-14.5)
[2017-10-04 15:30] LABS: ALANINE AMINOTRANSFERASE 9 U/L (0-55); ALBUMIN 3.8 GM/DL (3.2-4.5); ALKALINE PHOSPHATASE 40 U/L (40-136); BILIRUBIN,TOTAL 1.5 MG/DL (0.1-1.0); BUN/CREATININE RATIO 10; CALCIUM 9.3 MG/DL (8.5-10.1); CARBON DIOXIDE 25 MMOL/L (21-32); CHLORIDE 105 MMOL/L (98-107); CREATININE SERUM 0.67 MG/DL (0.60-1.30); GFR ESTIMATED > 60; GLUCOSE 83 MG/DL (70-105); MAGNESIUM 2.1 MG/DL (1.8-2.4); POTASSIUM 3.6 MMOL/L (3.6-5.0); SODIUM 137 MMOL/L (135-145); TOTAL PROTEIN 6.8 GM/DL (6.4-8.2)
--- NOTE | 2017-10-04 16:25 | History & Physical-OB/GYN ---
History of Present Illness History of Present Illness Reason for visit/HPI Nausea and vomiting/hyperemesis 13 week gestation Date of Admission 10/04/17 Date Seen by Provider: Oct 04, 2017 Time Seen by Provider: 16:15 I consulted on this patient on 10/04/17 16:24 Attending Physician Patrick Rae DO Admitting Physician Ligia Choi MD Consult Patient has started having nausea and emesis and has been unable to hold anything down. Has lost 8 lbs. Will admit for IV antiemetics and IV fluids. Replace electrolytes as needed. Has been doing [employer] and [employer]. I told her to "not get behind" and to come in as soon as she had emesis rather than waiting for over 24 hours. Has not been able to keep anything down Allergies and Home Medications Allergies Coded Allergies: hydrocodone (Unverified Allergy, Intermediate, HIVES, 09/16/15) penicillin (Unverified Allergy, Mild, RASH, 09/16/15) Home Medications Doxylamine/Pyridoxine HCl 1 Each Tablet.dr, 2 EACH PO HS Prescribed by: PATRICK RAE on 08/20/17 1406 Ondansetron 4 Mg Tab.rapdis, 4 MG SL Q4H PRN for NAUSEA/VOMITING-1ST LINE Prescribed by: LIDIA GAYTAN on 09/10/17 0930 Prochlorperazine 25 Mg Supp.rect, 25 MG RC BID Prescribed by: PATRICK RAE on 08/20/17 1406 Prochlorperazine Maleate 10 Mg Tablet, 10 MG PO BID Prescribed by: PATRICK RAE on 08/20/17 1406 Scopolamine 1 Each Patch.td72, 1.5 MG TOP Q72H Prescribed by: PATRICK RAE on 08/20/17 1406 Patient Home Medication List Home Medication List Reviewed: Yes Past Vxsivkw-Qkgvum-Pfgngw Hx Patient Social History Marrital Status: single Number of Children: 0 Employed/Student: unemployed Alcohol Beverage of Choice: Wine Drug of Choice: CANNIBUS Former Smoker, Quit: July 22, 2017 Type Used: Cigarettes 2nd Hand Smoke Exposure: Yes Physical Abuse Screen: No Sexual Abuse: No Recent Foreign Travel: No Contact w/other who traveled: No Recent Hopitalizations: No Recent Infectious Disease Expo: No Immunizations Up To Date Tetanus Booster (TDap): More than 5yrs Pediatric: Yes Date of Influenza Vaccine: Dec 20, 2013 Seasonal Allergies Seasonal Allergies: Yes Surgeries Yes (EGD, RT ANKLE FX, LT WRIST FX) Appendectomy, Orthopedic Respiratory Yes Cardiovascular No Neurological No Reproductive System Expected Date of Delivery: Apr 10, 2018 Hx : 2 Hx Para: 0 Hx Total # of Abortions (Spona: 1 Hx Reproductive Disorders: No Sexually Transmitted Disease: No Female Reproductive Disorders: Denies Genitourinary No Gastrointestinal Yes (ULCERS) Esophagitis, Ulcer Musculoskeletal Yes (WRIST AND ANKLE) Fractures Endocrine History of Endocrine Disorders: No Cancer No Psychosocial History of Psychiatric Problem: Yes Behavioral Health Disorders: Depression Integumentary History of Skin or Integumenta: No Blood Transfusions History of Blood Disorders: No Family Medical History Significant Family History: No Pertinent Family Hx Constitutional: dizziness, malaise, weight loss (HAs lost 8 lbs since starting ) Gastrointestinal: nausea, vomiting Physical Exam Physical Exam Vital Signs Capillary Refill : see RN notes Weight 50 kg. Labs General Appearance: Anxious, Moderate Distress Respiratory: Lungs Clear, Normal Breath Sounds, No Accessory Muscle Use Cardiovascular: Regular Rate, Rhythm, No Edema Abdominal: normal bowel sounds, non tender Assessment/Plan Admission Diagnosis Hyperemesis gravidarum - first trimester weight loss Plan admission for IV fluids and antiemetics. Replace electrolytes as needed. Admission Status: Observation PATRICK RAE DO Oct 04, 2017 16:25
[2017-10-04 19:25] VITALS: BP 103/62
[2017-10-04] MEDS ORDERED: PROCHLORPERAZINE 10 MG/2ML INJ (COMPAZINE) IV PRN (21:00)
[2017-10-04] MEDS ORDERED: CATHETER FLUSH 10 ML SYR IV SCH (22:00)
== END 2017-10-04 19:55 | disposition home or self-care (01) ==
LOC: WSo 14:07 → LDRP 14:07 → WSo 19:55
PROVIDERS: ATTEND Obstetrics & Gynecology
DX: O21.0 Mild hyperemesis gravidarum (principal); Z3A.13 13 weeks gestation of pregnancy
CPT/HCPCS: 36415; 80053; 83735; 85025; 96361; 96374; 99214

== ENCOUNTER → 2017-11-26 | Outpatient (CLI) | payer BC, MEDICAID ==
[~2017-11-26] MED LIST changes: -OXYC-197 PO; +OXYC1TAB87 PO
--- NOTE | 2017-11-26 12:53 | Diagnostic Imaging Report ---
INDICATION: Assessment of normal . TECHNIQUE: Multiple real-time grayscale images were obtained over the gravid uterus. COMPARISON: 04/29/2017. FINDINGS: Single viable intrauterine currently in cephalic presentation. Normal amount of amniotic fluid. Placenta is posterior without evidence of previa. Cervical length at 4.5 cm. The maternal adnexa are not imaged. The visualized anatomical structures including the intracranial structures, three-vessel cord and cord insertion site, spine, stomach, bladder, and kidneys appear unremarkable. Biometrical measurements are as follows: Biparietal 4.6 cm, age 20 weeks 0 days. Head circumference 17.92 cm, age 20 weeks 3 days. Abdominal circumference 14.2 cm, age 19 weeks 4 days. Femur length 3.3 cm, age 20 weeks 3 days. Sonographic estimate age: 20 weeks 1 days. Sonographic estimated date of delivery: 04/14/2017. Estimated Weight: 323 gm (+/- 47 gm). LMP percentile: 13%. heart rate: 160 beats per minute. number: 1 of 1. IMPRESSION: 1. Single viable intrauterine currently in cephalic presentation. Sonographically estimated age 20 weeks 1 day for an estimated date of delivery April 14, 2018. No abnormality is noted at this time. Dictated by: Dictated on workstation # [id number]
== END ==
LOC: RAD 09:30
PROVIDERS: ATTEND Obstetrics & Gynecology
DX: Z34.92 Encounter for supervision of normal pregnancy, unspecified, second trimester (principal); Z3A.20 20 weeks gestation of pregnancy
CPT/HCPCS: 76805

== ENCOUNTER → 2018-01-31 | Outpatient (CLI) | payer BC, MEDICAID ==
--- NOTE | 2018-01-31 12:56 | Diagnostic Imaging Report ---
INDICATION: Followup size and date discrepancy. TECHNIQUE: Multiple real-time grayscale images were obtained over the gravid uterus. COMPARISON: 11/26/2017. FINDINGS: There is a single live fetus in a breech presentation. heart rate was recorded at 161 beats per minute. Placenta is posterior. Amniotic fluid volume is normal. No gross abnormality is seen. Biometrical measurements are as follows: Biparietal 7.31 cm, age 29 weeks 3 days. Head circumference 28.13 cm, age 30 weeks 6 days. Abdominal circumference 26.26 cm, age 30 weeks 3 days. Femur length 5.67 cm, age 29 weeks 6 days. Sonographic estimate age: 30 weeks 1 days. Sonographic estimated date of delivery: 04/10/18. Estimated Weight: 1521 gm (+/- 222 gm). LMP percentile: 37%. heart rate: 161 beats per minute. number: 1 of 1. IMPRESSION: Single live IUP approximately 30 weeks gestational age demonstrate normal interval growth when compared with prior exam. Dictated by: Dictated on workstation # [id number]
== END ==
LOC: RAD 11:26
PROVIDERS: ATTEND Obstetrics & Gynecology
DX: O34.593 Maternal care for other abnormalities of gravid uterus, third trimester (principal); Z3A.30 30 weeks gestation of pregnancy
CPT/HCPCS: 76816

== ENCOUNTER 2018-03-16 14:11 | Outpatient (CLI) | payer BC, MEDICAID ==
[~2018-03-16] VITALS: Ht 160 cm; Wt 66.2 kg
[2018-03-16 14:50] VITALS: BP 98/55
[2018-03-16] MEDS ORDERED: PREN1TAB79 PO (14:53)
[2018-03-16] MEDS ORDERED: MELA3TAB PO (14:53)
[2018-03-16 16:30] VITALS: BP 98/55
== END 2018-03-16 16:30 | disposition home or self-care (01) ==
LOC: WSo 14:11 → LDRP 14:11 → WSo 16:30
PROVIDERS: ATTEND Obstetrics & Gynecology
DX: O26.853 Spotting complicating pregnancy, third trimester (principal); Z3A.36 36 weeks gestation of pregnancy
CPT/HCPCS: 99214

== ENCOUNTER 2018-04-10 20:39 | Inpatient (IN) | payer BC, MEDICAID ==
[~2018-04-10] VITALS: Ht 160 cm; Wt 70.8 kg
[~2018-04-10 20:39] MED LIST changes: +MELA3TAB PO; +PREN1TAB79 PO
[2018-04-10] MEDS ORDERED: D5 LR IV SOLUTION 1,000 ML IV ONE (20:41)
[2018-04-10] MEDS ORDERED: LACTATED RINGERS 1,000 ML IV SCH (20:48)
--- NOTE | 2018-04-10 20:50 | NUR ---
HESHAM SIDDIQI presented to unit via from ED, for INDUCTION. HESHAM SIDDIQI weighed, gowned, voided, and to bed. EFHM and TOCO applied, VS taken. HESHAM SIDDIQI oriented to bed controls, call light, TV, heat, and A/C controls.
[2018-04-10] MEDS ORDERED: MISOPROSTOL 100 MCG (CYTOTEC) TAB PO ONE (21:00)
[2018-04-10] MEDS ORDERED: FAMOTIDINE 20 MG (PEPCID) TABLET PO PRN (21:00)
[2018-04-10] MEDS ORDERED: ACETAMINOPHEN 500 MG TAB (TYLENOL) PO PRN (21:00)
[2018-04-10] MEDS ORDERED: TERBUTALINE INJ 1 MG/ML (BRETHINE) AMP SC PRN (21:00)
[2018-04-10] MEDS ORDERED: ZOLPIDEM 5 MG (AMBIEN) TAB PO SCH (21:00)
[2018-04-10] MEDS ORDERED: morphine INJ 10 MG/ML 1ML (SYR OR VIAL) IVP PRN (21:00)
[2018-04-10] MEDS ORDERED: CALCIUM CARBONATE 500 MG (TUMS) TAB.CHEW PO PRN (21:00)
[2018-04-10] MEDS ORDERED: MINERAL OIL CONCENTRATE 99.9% 15 ML UDC TOP PRN (21:00)
[2018-04-10] MEDS ORDERED: MISOPROSTOL 100 MCG (CYTOTEC) TAB ONE (21:13)
[2018-04-10] MEDS: D5 LR IV SOLUTION 1,000 ML IV SCH (21:30)
[2018-04-10 21:33] LABS: BASOPHILS % (AUTO) 0 % (0-10); EOSINOPHILS # (AUTO) 0.1 10^3/uL (0.0-0.3); EOSINOPHILS % (AUTO) 1 % (0-10); HEMATOCRIT 31 % (35-52); HEMOGLOBIN 10.3 G/DL (11.5-16.0); LYMPHOCYTES # (AUTO) 2.1 X 10^3 (1.0-4.0); LYMPHOCYTES % (AUTO) 21 % (12-44); MEAN CORPUSCULAR HEMOGLOBIN 27 PG (25-34); MEAN CORPUSCULAR HGB CONC 33 G/DL (32-36); MEAN CORPUSCULAR VOLUME 82 FL (80-99); MONOCYTES % (AUTO) 10 % (0-12); NEUTROPHILS # (AUTO) 7.1 X 10^3 (1.8-7.8); NEUTROPHILS % (AUTO) 69 % (42-75); PLATELET COUNT 252 10^3/uL (130-400); RED CELL DISTRIBUTION WIDTH 13.9 % (10.0-14.5); WHITE BLOOD COUNT 10.2 10^3/uL (4.3-11.0)
[2018-04-10 21:44] LABS: BILIRUBIN,URINE NEGATIVE (NEGATIVE); CLARITY,URINE CLEAR; COLOR,URINE YELLOW; GLUCOSE, URINE (UA) 2+ (NEGATIVE); KETONES,URINE 1+ (NEGATIVE); LEUKOCYTE ESTERASE ,URINE 1+ (NEGATIVE); NITRITE,URINE NEGATIVE (NEGATIVE); PH,URINE 6.5 (5-9); PROTEIN,URINE 2+ (NEGATIVE); UROBILINOGEN,URINE NORMAL (NORMAL)
[2018-04-10 21:54] LABS: BACTERIA,URINE FEW /HPF; CALCIUM OXALATE CRYSTALS,UR MODERATE /LPF; WBC,URINE 0-2 /HPF
[2018-04-10 22:00] VITALS: BP 123/67
[2018-04-11] VITALS (59 sets, daily range): BP systolic 84–126; BP diastolic 49–80
[2018-04-11] MEDS: MISOPROSTOL 100 MCG (CYTOTEC) TAB PO SCH ×5 (01:51→18:40)
[2018-04-11] MEDS: D5 LR IV SOLUTION 1,000 ML IV SCH ×2 (05:57→13:10)
[2018-04-11] MEDS: CATHETER FLUSH 10 ML SYR IV SCH ×2 (07:42→14:55)
[2018-04-11] MEDS ORDERED: fentaNYL INJECTION 100 MCG/2 ML AMP ONE ×2 (14:39→15:49)
[2018-04-11] MEDS ORDERED: fentaNYL INJECTION 100 MCG/2 ML AMP IVP ONE ×2 (14:45→15:15)
[2018-04-11] MEDS ORDERED: SUFENTA 0.6MCG/ML BUPIVA 0.125 100 ML ONE (15:23)
[2018-04-11] MEDS ORDERED: BUPIVACAINE 0.25% 30 ML (SENSORCAINE) VIAL ONE (15:49)
[2018-04-11] MEDS ORDERED: LACTATED RINGERS 1,000 ML IV ONE (16:38)
[2018-04-11] MEDS ORDERED: EPIDURAL (SUFENTA 0.6MCG/ML BUPIVA 0.125%) 100 ML BAG EPI SCH (16:45)
[2018-04-11] MEDS ORDERED: diphenhydrAMINE 50 MG/ML INJ (BENADRYL) IV PRN (16:45)
[2018-04-11] MEDS ORDERED: ONDANSETRON 4 MG/2 ML (SDV) Z0FRAN IV PRN (16:45)
[2018-04-11] MEDS ORDERED: NALOXONE 0.4 MG/ML 1 ML (NARCAN) VIAL IV PRN (16:45)
[2018-04-11] MEDS ORDERED: CATHETER FLUSH 10 ML SYR IV PRN (16:45)
[2018-04-11] MEDS ORDERED: OXYTOCIN/NORMAL SALINE 500 ML IV ONE (19:02)
[2018-04-11] MEDS ORDERED: OXYTOCIN/NORMAL SALINE 500 ML IV SCH (19:05)
[2018-04-11] MEDS ORDERED: LIDOCAINE/EPI 2% 1:200,00 (XYLOCAINE) 10 ML VIAL ONE (21:07)
[2018-04-12] VITALS (13 sets, daily range): BP systolic 90–121; BP diastolic 49–90
--- NOTE | 2018-04-12 00:49 | OB Labor & Delivery Record ---
Vag Delivery Note Vag Delivery Note Date of Delivery: 04/12/18 Preoperative Diagnosis: Jaden Darnell is a (21 /Para 1/0 , Gestational Age 40 2/7 weeks for induction of labor ] Postoperative Diagnosis: Same Surgeon: PATRICK RAE Anesthesia: epidural Delivery Type: spontaneous vaginal Findings: [] Viable male , apgars 8/9, weight pending Lacerations: bilateral vaginal lacerations Intact placenta with 3 vessel cord. No nuchal cord, body cord or shoulder dystocia EBL: 200 ml Complications: None Condition: Stable Description of Procedure: The patient is a 21 /Para 1/0 ,Gestational Age 40 2/7 weeks who presented for induction of labor. She was admitted and informed consent was obtained. Her labor course was remarkable for misoprostol cervical ripening, AROM and pitocin augmentation. She progressed to complete dilatation and began to push. She was then set up for delivery. The infant's head was delivered atraumatically in the MORELIA position. The shoulders and remainder of the 's body were then delivered without difficulty. There was a loop of cord at the shoulder/chest but not over, which was compressed during contactions. Upon delivery, the head was held below the level of the perineum and the mouth and nares were bulb suctioned. The cord was doubly clamped and cut and the infant was handed off to the pediatric staff. An intact placenta with 3-vessel cord delivered via Edson and there was found to be minimal bleeding.~ Vigorous fundal massage was performed and the fundus was found to be firm. IV oxytocin was given. Examination of the vagina and perineum revealed bilateral vaginal lacerations that did not require repair. Following the delivery, sponge, instrument and needle counts were correct. Mom and baby were both in stable condition in the labor suite. Vitals - Labs Vital Signs - I&O Vital Signs Date Time Temp Pulse Resp B/P (MAP) Pulse Ox O2 Delivery O2 Flow Rate FiO2 04/11/18 22:15 61 18 95/60 (72) 98 Room Air 04/11/18 22:00 61 18 102/61 (75) 98 Room Air 04/11/18 21:45 83 18 97/60 (72) 99 Room Air 04/11/18 21:30 67 18 100/65 (77) 99 Room Air 04/11/18 21:15 73 18 94/58 (70) 98 Room Air 04/11/18 21:00 73 18 92/57 (69) 98 Room Air 04/11/18 20:45 51 18 92/54 (67) 97 Room Air 04/11/18 20:30 51 18 92/53 (66) 98 Room Air 04/11/18 20:15 98.3 70 18 95/55 (68) 97 Room Air 04/11/18 20:00 70 18 95/58 (70) 99 Room Air 04/11/18 19:45 87 18 104/59 (74) 99 Room Air 04/11/18 19:30 76 18 98/53 (68) Room Air 04/11/18 19:15 60 18 94/51 (65) Room Air 04/11/18 19:00 Room Air 04/11/18 18:45 60 18 99/57 (71) Room Air 04/11/18 18:30 60 18 99/57 (71) Room Air 04/11/18 18:15 60 18 98/54 (69) 97 Room Air 04/11/18 18:00 63 98/55 (69) 98 Room Air 04/11/18 17:45 86 103/54 (70) 97 Room Air 04/11/18 17:32 98.8 76 96/60 (72) 97 Room Air 04/11/18 17:30 84 18 89/56 (67) 97 Room Air 04/11/18 17:15 80 18 94/55 (68) 97 Room Air 04/11/18 17:00 81 18 94/58 (70) 97 Room Air 04/11/18 16:56 75 18 95/58 (70) 97 Room Air 04/11/18 16:53 61 18 96/60 (72) 97 Room Air 04/11/18 16:51 80 18 93/57 (69) 96 Room Air 04/11/18 16:48 65 18 95/58 (70) 98 Room Air 04/11/18 16:45 62 18 95/61 (72) 100 Room Air 04/11/18 16:41 62 18 97/57 (70) 98 Room Air 04/11/18 16:39 58 18 102/57 (72) 98 Room Air 04/11/18 16:36 65 18 99/56 (70) 96 Room Air 04/11/18 16:33 63 18 98/58 (71) 99 Room Air 04/11/18 16:30 64 18 102/63 (76) 100 Room Air 04/11/18 16:28 60 18 101/60 (74) 99 Room Air 04/11/18 16:23 65 18 105/63 (77) 99 Room Air 04/11/18 16:19 65 18 111/66 (81) 99 Room Air 04/11/18 16:15 79 18 100 Room Air 04/11/18 16:10 82 18 126/56 (79) 99 Room Air 04/11/18 16:05 83 18 118/68 (85) 100 Room Air 04/11/18 16:00 87 18 123/80 (94) 100 Room Air 04/11/18 15:30 56 18 121/73 (89) Room Air 04/11/18 15:00 98.4 Room Air 04/11/18 14:25 68 18 94/54 (67) Room Air 04/11/18 14:00 67 18 97/64 (75) Room Air 04/11/18 13:30 67 18 95/53 (67) Room Air 04/11/18 13:00 67 18 97/64 (75) Room Air 04/11/18 12:30 67 18 97/64 (75) Room Air 04/11/18 12:00 98.1 18 Room Air 04/11/18 11:00 Room Air 04/11/18 10:30 76 18 98/56 (70) Room Air 04/11/18 10:00 Room Air 04/11/18 09:25 76 18 95/53 (67) Room Air 04/11/18 09:00 Room Air 04/11/18 08:00 Room Air 04/11/18 07:45 97.9 04/11/18 07:30 69 18 118/56 (76) Room Air 04/11/18 06:51 85 18 99/79 (86) Room Air 04/11/18 06:00 75 18 102/59 (73) Room Air 04/11/18 05:00 18 Room Air 04/11/18 04:00 78 18 98/57 (71) Room Air 04/11/18 03:00 82 18 84/49 (61) Room Air 04/11/18 02:00 82 18 85/53 (64) Room Air 04/11/18 01:00 98.4 95 18 99/55 (70) Room Air PATRICK RAE DO Apr 12, 2018 00:49
[2018-04-12] MEDS ORDERED: IBUPROFEN 600 MG (MOTRIN) TAB PO ONE (02:44)
[2018-04-12] MEDS ORDERED: OXYTOCIN/NORMAL SALINE 500 ML IV SCH (03:23)
[2018-04-12] MEDS ORDERED: TETANUS,DIPTH,PERTUSS P/F (BOOSTRIX) 0.5 ML VIAL IM ONE (03:30)
[2018-04-12] MEDS ORDERED: WITCH HAZEL(TUCKS) 40 EA JAR TOP PRN (03:30)
[2018-04-12] MEDS ORDERED: MEASLES,MUMPS,RUBELLA 1 EA INJ SQ ONE (03:30)
[2018-04-12] MEDS ORDERED: BENZOCAINE/MENTHOL (DERMOPLAST) 56 ML CAN TP PRN (03:30)
[2018-04-12] MEDS ORDERED: CATHETER FLUSH 10 ML SYR IV SCH (06:00)
[2018-04-12 06:43] LABS: BASOPHILS % (AUTO) 0 % (0-10); EOSINOPHILS # (AUTO) 0.1 10^3/uL (0.0-0.3); EOSINOPHILS % (AUTO) 1 % (0-10); HEMATOCRIT 29 % (35-52); HEMOGLOBIN 9.4 G/DL (11.5-16.0); LYMPHOCYTES # (AUTO) 1.8 X 10^3 (1.0-4.0); LYMPHOCYTES % (AUTO) 14 % (12-44); MEAN CORPUSCULAR HEMOGLOBIN 27 PG (25-34); MEAN CORPUSCULAR HGB CONC 33 G/DL (32-36); MEAN CORPUSCULAR VOLUME 83 FL (80-99); MEAN PLATELET VOLUME 9.7 FL (7.4-10.4); MONOCYTES # (AUTO) 1.1 X 10^3 (0.0-1.0); MONOCYTES % (AUTO) 9 % (0-12); NEUTROPHILS # (AUTO) 9.3 X 10^3 (1.8-7.8); NEUTROPHILS % (AUTO) 76 % (42-75); PLATELET COUNT 206 10^3/uL (130-400); WHITE BLOOD COUNT 12.3 10^3/uL (4.3-11.0)
--- NOTE | 2018-04-12 09:46 | Anesthesia-Regional Post-Op ---
Regional Patient Condition Mental Status: Alert, Oriented x3 Circulation: Same as Pre-Op Headache: Absent Sensation: Full Recovery Motor Block: Absent Post Op Complications Complications None Follow Up Care/Instructions Patient Instructions None needed. Anesthesia/Patient Condition Patient is doing well, no complaints, stable vital signs, no apparent adverse anesthesia problems. No complications reported per nursing. ALEE BANEGAS CRNA Apr 12, 2018 09:46
[2018-04-12] MEDS: IBUPROFEN 600 MG (MOTRIN) TAB PO SCH ×2 (15:25→20:56)
--- NOTE | 2018-04-12 20:55 | NUR ---
Beside assessment completed, see interventions for detailed assessment. VSS. No questions or concerns voiced at this time. Will continue to montior. Call light within reach.
[2018-04-13] MEDS: IBUPROFEN 600 MG (MOTRIN) TAB PO SCH ×4 (02:53→22:30)
[2018-04-13 02:57] VITALS: BP 107/59
[2018-04-13 04:21] LABS: BASOPHILS % (AUTO) 0 % (0-10); EOSINOPHILS # (AUTO) 0.2 10^3/uL (0.0-0.3); EOSINOPHILS % (AUTO) 1 % (0-10); HEMATOCRIT 29 % (35-52); HEMOGLOBIN 9.3 G/DL (11.5-16.0); LYMPHOCYTES # (AUTO) 3.4 X 10^3 (1.0-4.0); LYMPHOCYTES % (AUTO) 25 % (12-44); MEAN CORPUSCULAR HEMOGLOBIN 27 PG (25-34); MEAN CORPUSCULAR HGB CONC 32 G/DL (32-36); MEAN CORPUSCULAR VOLUME 84 FL (80-99); MEAN PLATELET VOLUME 10.2 FL (7.4-10.4); MONOCYTES % (AUTO) 7 % (0-12); NEUTROPHILS # (AUTO) 9.1 X 10^3 (1.8-7.8); NEUTROPHILS % (AUTO) 67 % (42-75); PLATELET COUNT 224 10^3/uL (130-400); RED CELL DISTRIBUTION WIDTH 13.9 % (10.0-14.5); WHITE BLOOD COUNT 13.7 10^3/uL (4.3-11.0)
[2018-04-13 09:15] VITALS: BP 115/79
--- NOTE | 2018-04-13 10:06 | Postpartum Progress Note ---
Note Note Day # 1 s/p Subjective: Patient is without complaints. Ambulating, voiding. Tolerating a regular diet without nausea or vomiting. Normal lochia. Pain is well controlled with oral pain medications. breast feeding. Objective: 04/13/18 02:57 Temp 97.5 Pulse 81 Resp 16 B/P (MAP) 107/59 (75) Pulse Ox 98 O2 Delivery Room Air Laboratory Tests Test 04/13/18 04:15 Range/Units White Blood Count 13.7 H 4.3-11.0 10^3/uL Red Blood Count 3.49 L 4.35-5.85 10^6/uL Hemoglobin 9.3 L 11.5-16.0 G/DL Hematocrit 29 L 35-52 % Mean Corpuscular Volume 84 80-99 FL Mean Corpuscular Hemoglobin 27 25-34 PG Mean Corpuscular Hemoglobin Concent 32 32-36 G/DL Red Cell Distribution Width 13.9 10.0-14.5 % Platelet Count 224 130-400 10^3/uL Mean Platelet Volume 10.2 7.4-10.4 FL Neutrophils (%) (Auto) 67 42-75 % Lymphocytes (%) (Auto) 25 12-44 % Monocytes (%) (Auto) 7 0-12 % Eosinophils (%) (Auto) 1 0-10 % Basophils (%) (Auto) 0 0-10 % Neutrophils # (Auto) 9.1 H 1.8-7.8 X 10^3 Lymphocytes # (Auto) 3.4 1.0-4.0 X 10^3 Monocytes # (Auto) 1.0 0.0-1.0 X 10^3 Eosinophils # (Auto) 0.2 0.0-0.3 10^3/uL Basophils # (Auto) 0.0 0.0-0.1 10^3/uL Physical Exam: General - Alert and oriented, no apparent distress Abdomen - Soft, appropriately tender to palpation, non-distended, fundus firm at umbilicus Extremities - no edema, negative Bautista's bilaterally Assessment: 1. post- day # 1, status post vaginal delivery. Recovering well, hemodynamically stable 2. acute blood loss/antepartum anemia Plan: Routine care. Encourage breast feeding. Encourage ambulation. Ferrous sulfate supplementation. Plan for discharge tomorrow Vitals - Labs Vital Signs - I&O Vital Signs Date Time Temp Pulse Resp B/P (MAP) Pulse Ox O2 Delivery O2 Flow Rate FiO2 04/13/18 02:57 97.5 81 16 107/59 (75) 98 Room Air 04/12/18 20:55 98.4 77 18 111/75 (87) 98 Room Air 04/12/18 10:05 97.9 77 18 109/65 (80) Room Air Labs Laboratory Tests 04/13/18 04:15: White Blood Count 13.7H, Red Blood Count 3.49L, Hemoglobin 9.3L, Hematocrit 29L , Mean Corpuscular Volume 84, Mean Corpuscular Hemoglobin 27, Mean Corpuscular Hemoglobin Concent 32, Red Cell Distribution Width 13.9, Platelet Count 224, Mean Platelet Volume 10.2, Neutrophils (%) (Auto) 67, Lymphocytes (%) (Auto) 25 , Monocytes (%) (Auto) 7, Eosinophils (%) (Auto) 1, Basophils (%) (Auto) 0, Neutrophils # (Auto) 9.1H, Lymphocytes # (Auto) 3.4, Monocytes # (Auto) 1.0, Eosinophils # (Auto) 0.2, Basophils # (Auto) 0.0 Microbiology 04/10/18 Urine Culture - Final, Complete ----- PATRICK RAE DO Apr 13, 2018 10:06
[2018-04-13] MEDS ORDERED: ACET-77 PO (10:15)
[2018-04-13] MEDS ORDERED: FERR-84 PO (10:15)
[2018-04-13] MEDS ORDERED: IBUP-844 PO (10:15)
[2018-04-13] MEDS ORDERED: SIMETHICONE 80 MG (MYLICON) CHEW PO PRN (10:30)
[2018-04-13 13:15] VITALS: BP 123/70
[2018-04-13 16:00] VITALS: BP 104/67
[2018-04-13 21:06] VITALS: BP 113/69
[2018-04-14 04:11] VITALS: BP 121/77
[2018-04-14] MEDS: IBUPROFEN 600 MG (MOTRIN) TAB PO SCH ×2 (04:11→10:16)
[2018-04-14 09:15] VITALS: BP 93/52
--- NOTE | 2018-04-14 10:51 | Discharge Inst-Women's Service ---
Discharge Inst-Women's Serv Depart Medication/Instructions New, Converted or Re-Newed RX: Transmitted to Pharmacy Instructions follow up in 2 weeks Final Diagnosis vaginal delivery post dates acute blood loss anemia/antepartum anemia Consults/Follow Up Additional Follow Up: Yes (2 weeks) Activity Activity: Activity as Tolerated Driving Instructions: You May Drive NO SMOKING: NO SMOKING Nothing Inside Vagina: No Douching, No [place], No Tampons Diet Discharge Diet: No Restrictions Symptoms to Report to : Bleeding Excessive, Pain Increased, Fever Over 101 Degrees F, Vaginal Bleeding Increase, Cramps in Feet or Legs, Vaginal Discharge PATRICK Ibarra DO Apr 14, 2018 10:51
--- NOTE | 2018-04-14 11:30 | NUR ---
Discharge home instructions given to pt and S.O. Copies of handouts given, follow up appointment made, and script called to [facility] by Dr Scruggs. Verbalized understanding.
[2018-04-14 12:30] VITALS: BP 93/52
--- NOTE | 2018-04-14 12:30 | NUR ---
Ambulated to exit with staff, S.O. in car seat.
--- NOTE | 2018-05-12 07:00 | Discharge Summary ---
Diagnosis/Chief Complaint Date of Admission Apr 10, 2018 at 20:39 Date of Discharge Apr 14, 2018 at 12:30 Discharge Date: Apr 14, 2018 Admission Diagnosis Admission Diagnosis Patient was admitted for induction of labor due to post maturity and SGA baby Discharge Diagnosis post maturity (40 + weeks) history of hyperemesis SGA Vaginal delivery Induction Reason Hospital Visit PAtient was admitted on 04/10/18 for induction of labor at 40 weeks. Misoprostol was used for cervical ripening. This was done overnight 04/10 and through the day on 04/11/18 with AROM and augmentation. She then delivered on after midnight. She was admitted for routine post management. Discharge Summary Hospital Course Hospital Course She had an uncomplicated post course after delivery on 04/12/18. Labs post operative hemoglobin was 9.3 Procedures None. Discharge Physical Examination Allergies: Coded Allergies: hydrocodone (Unverified Allergy, Intermediate, HIVES, 09/16/15) penicillin (Unverified Allergy, Mild, RASH, 09/16/15) Vitals & I&Os 93/52 afebrile O2 Sate 98%ile General Appearance: Alert Respiratory: Clear to Auscultation, Normal Air Movement Cardiovascular: Regular Rate, Normal S1, Normal S2 Discussion & Recommendations routine post course She was discharged to home on post day 2 Discharge Home Medications Reviewed and agree with Discharge Medication list on patient's Discharge Instruction sheet Instructions to Patient/Family Please see electronic discharge instructions given to patient. Clinical Quality Measures DVT/VTE Risk/Contraindication: Risk Factor Score Per Nursin RFS Level Per Nursing on Admit: 1=Low/No VTE PPX PATRICK RAE DO May 12, 2018 07:00
== END 2018-04-14 12:30 | disposition home or self-care (01) | DRG 806 ==
LOC: LDRP 20:39
PROVIDERS: ADMIT Obstetrics & Gynecology; ATTEND Obstetrics & Gynecology
PROC: 10E0XZZ Delivery of Products of Conception, External Approach (ICD-10-PCS; principal; 2018-04-12)
DX: O36.5930 Maternal care for other known or suspected poor fetal growth, third trimester, not applicable or unspecified (principal); O99.03 Anemia complicating the puerperium; D62 Acute posthemorrhagic anemia; O69.2XX0 Labor and delivery complicated by other cord entanglement, with compression, not applicable or unspecified; O99.013 Anemia complicating pregnancy, third trimester; O48.0 Post-term pregnancy; Z3A.40 40 weeks gestation of pregnancy; Z37.0 Single live birth
CPT/HCPCS: 36415; 81000; 85025; 86850; 86900; 86901; 87088

== ENCOUNTER 2018-08-18 05:37 | Outpatient (CLI) | payer BC, MEDICAID ==
[~2018-08-18] VITALS: Ht 160 cm; Wt 56.7 kg
[~2018-08-18 05:37] MED LIST changes: +ACET-77 PO; +FERR-84 PO; +IBUP-844 PO
[2018-08-18] MEDS ORDERED: LORA0.5T PO (13:46)
[2018-08-18] MEDS ORDERED: NORG1TAB14 PO (13:46)
[2018-08-18] MEDS ORDERED: SERT100T PO (13:46)
== END 2018-08-18 13:54 | disposition home or self-care (01) ==
LOC: PREOP 05:37
PROVIDERS: ATTEND Otolaryngology Otolaryngology/Facial Plastic Surgery
DX: Z01.818 Encounter for other preprocedural examination (principal)

== ENCOUNTER 2018-08-25 05:58 | Day surgery (SDC) | payer BC, MEDICAID ==
[2018-08-25] VITALS (10 sets, daily range): BP systolic 98–141; BP diastolic 65–87
[~2018-08-25] VITALS: Ht 160 cm; Wt 56.7 kg
[~2018-08-25 05:58] MED LIST changes: +LORA0.5T PO; +NORG1TAB14 PO; +SERT100T PO
[2018-08-25] MEDS ORDERED: NS IV 500 ML 500 ML IV PRN (06:08)
[2018-08-25] MEDS ORDERED: MIDAZOLAM SYRUP (VERSED) 10MG/5ML UDC PO ONE (06:15)
[2018-08-25] MEDS ORDERED: APAP 325 MG/10.15 ML LIQ (TYLENOL) UDC PO ONE (06:15)
[2018-08-25] MEDS ORDERED: LACTATED RINGERS 1,000 ML IV PRN (06:16)
[2018-08-25] MEDS ORDERED: MIDAZOLAM 2 MG/2 ML (VERSED) VIAL IV ONE (06:30)
[2018-08-25 06:41] LABS: BASOPHILS % (AUTO) 0 % (0-10); EOSINOPHILS # (AUTO) 0.2 10^3/uL (0.0-0.3); EOSINOPHILS % (AUTO) 3 % (0-10); HEMATOCRIT 37 % (35-52); HEMOGLOBIN 12.3 G/DL (11.5-16.0); LYMPHOCYTES # (AUTO) 3.3 X 10^3 (1.0-4.0); LYMPHOCYTES % (AUTO) 44 % (12-44); MEAN CORPUSCULAR HEMOGLOBIN 27 PG (25-34); MEAN CORPUSCULAR HGB CONC 33 G/DL (32-36); MEAN CORPUSCULAR VOLUME 80 FL (80-99); MEAN PLATELET VOLUME 9.7 FL (7.4-10.4); MONOCYTES # (AUTO) 0.6 X 10^3 (0.0-1.0); MONOCYTES % (AUTO) 7 % (0-12); NEUTROPHILS # (AUTO) 3.3 X 10^3 (1.8-7.8); NEUTROPHILS % (AUTO) 45 % (42-75); PLATELET COUNT 288 10^3/uL (130-400); RED CELL DISTRIBUTION WIDTH 14.5 % (10.0-14.5); WHITE BLOOD COUNT 7.4 10^3/uL (4.3-11.0)
--- NOTE | 2018-08-25 06:51 | Progress Note-Pre Operative ---
Pre-Operative Progress Note H&P Reviewed The H&P was reviewed, patient examined and no changes noted. Date Seen by Provider: Aug 25, 2018 Time Seen by Provider: 06:30 Date H&P Reviewed: Aug 25, 2018 Time H&P Reviewed: 06:30 Pre-Operative Diagnosis: Rec Tonsillitis KAYODE DIAL MD Aug 25, 2018 06:51
[2018-08-25] MEDS ORDERED: fentaNYL INJECTION 100 MCG/2 ML AMP ONE (07:03)
[2018-08-25] MEDS ORDERED: MIDAZOLAM 2 MG/2 ML (VERSED) VIAL ONE (07:03)
[2018-08-25] MEDS ORDERED: PROPOFOL INJECTION 50 ML IV ONE (07:03)
[2018-08-25] MEDS ORDERED: LIDOCAINE PF 2% 5 ML (XYLOCAINE) VIAL ONE (07:03)
[2018-08-25] MEDS ORDERED: morphine INJ 10 MG/ML 1ML (SYR OR VIAL) ONE (07:53)
[2018-08-25] MEDS ORDERED: NS IV 1000 ML 1,000 ML IV SCH (07:54)
--- NOTE | 2018-08-25 07:54 | Progress Note-Post Operative ---
Post-Operative Progess Note Surgeon (s)/Cardiac Nurse Practitioner (s) Surgeon KAYODE DIAL MD Cardiac Nurse Practitioner n/a Pre-Operative Diagnosis Rec Tonsillitis Post-Operative Diagnosis same Post-Op Procedure Note Date of Procedure: Aug 25, 2018 Name of Procedure Performed: Tonsillectomy Description & Findings Description and Findings: n/a Anesthesia Type get Estimated Blood Loss minimal Packing none. Specimen(s) collected/removed tonsils KAYODE DIAL MD Aug 25, 2018 07:54
[2018-08-25] MEDS ORDERED: HYDROcodone/APAP 7.5MG-325 MG/15 ML (LORTAB) UDC PO PRN (08:00)
[2018-08-25] MEDS ORDERED: APAP 325 MG/10.15 ML LIQ (TYLENOL) UDC PO PRN (08:00)
[2018-08-25] MEDS ORDERED: ONDANSETRON 4 MG/2 ML (SDV) Z0FRAN IVP PRN (08:15)
[2018-08-25] MEDS ORDERED: morphine INJ 10 MG/ML 1ML (SYR OR VIAL) IVP ONE (08:15)
[2018-08-25] MEDS ORDERED: SEVOFLURANE (ULTANE) 15 ML INHAL SOLN ONE (08:16)
[2018-08-25] MEDS ORDERED: ONDANSETRON 4 MG/2 ML (SDV) Z0FRAN ONE (08:16)
[2018-08-25] MEDS ORDERED: TETRACAINESUCKERS MT (09:03)
[2018-08-25] MEDS ORDERED: AZIT200S47 PO (09:03)
[2018-08-25] MEDS ORDERED: HYDR15SO8 PO (09:03)
[2018-08-25] MEDS ORDERED: DEXAINTSOL PO (09:03)
--- NOTE | 2018-08-25 09:33 | Anesthesia-General Post-Op ---
General Patient Condition Mental Status/LOC: Same as Preop Cardiovascular: Satisfactory Nausea/Vomiting: Absent Respiratory: Satisfactory Pain: Controlled Complications: Absent Post Op Complications Complications None Follow Up Care/Instructions Patient Instructions None needed. Anesthesia/Patient Condition Patient Condition Patient is doing well, no complaints, stable vital signs, no apparent adverse anesthesia problems. No complications reported per nursing. NEHEMIAH JOSEPH CRNA Aug 25, 2018 09:33
== END 2018-08-25 10:55 | disposition home or self-care (01) ==
LOC: SDC 05:58
PROVIDERS: ATTEND Otolaryngology Otolaryngology/Facial Plastic Surgery
DX: J35.01 Chronic tonsillitis (principal); K27.9 Peptic ulcer, site unspecified, unspecified as acute or chronic, without hemorrhage or perforation; F32.9 Major depressive disorder, single episode, unspecified; F17.290 Nicotine dependence, other tobacco product, uncomplicated; Z79.899 Other long term (current) drug therapy
CPT/HCPCS: 36415; 84703; 85025; 87081; 88304

== ENCOUNTER 2018-09-02 17:12 | Emergency (ER) | payer BC, MEDICAID ==
[~2018-09-02] VITALS: Ht 160 cm; Wt 56.7 kg
[~2018-09-02 17:12] MED LIST changes: +AZIT200S47 PO; +DEXAINTSOL PO; +HYDR15SO8 PO; +TETRACAINESUCKERS MT
[2018-09-02] MEDS ORDERED: [UNRECOGNIZED DRUG - CODE] (17:26)
[2018-09-02] MEDS ORDERED: HYDR118S10 (17:26)
[2018-09-02] MEDS ORDERED: ONDANSETRON 4 MG/2 ML (SDV) Z0FRAN IVP ONE (17:30)
[2018-09-02] MEDS ORDERED: LACTATED RINGERS 1,000 ML IV SCH (17:30)
--- NOTE | 2018-09-02 17:38 | ED EENT ---
History of Present Illness General Chief Complaint: Oral/Throat Problems Stated Complaint: TONSILLECTOMY 08/25, UNABLE TO DRINK Nursing Triage Note: Patient reports have a tonsilectomy on the . States has been nauseated and unable to eat or drink much since. Source: patient Exam Limitations: no limitations History of Present Illness Date Seen by Provider: Sep 02, 2018 Time Seen by Provider: 17:37 Initial Comments To ER by her mother with reports of tonsil pain and nausea, inability to tolerate much orally. Patient had a tonsillectomy done here on 08/25/[address] Simon. She's not had any troubles with bleeding or fevers. Timing/Duration: abrupt Severity: moderate Location: throat Associated Symptoms: denies symptoms Allergies and Home Medications Allergies Coded Allergies: penicillin (Unverified Allergy, Mild, RASH, 08/18/18) Home Medications Cefdinir 125 Mg/5 Ml Susp.recon, 12 ML PO BID Prescribed by: MANUEL GREER on 09/02/181820 Lorazepam 0.5 Mg Tablet, 0.25 MG PO HS, (Reported) Norgestimate-Ethinyl Estradiol 1 Each Tablet, 1 EACH PO DAILY, (Reported) Oxycodone HCl 5 Mg/5 Ml Solution, 5 MG PO Q6H Prescribed by: MANUEL GREER on 09/02/181812 Sertraline HCl 100 Mg Tablet, 100 MG PO DAILY, (Reported) Tetracaine Sucker Ea, 1 EA MT UD PRN for PAIN Tetracain Suckers These suckers are custom made and require a prescription. Moisten the sucker first and then suck on it gently as far back in the mouth as possible for 2-3 days. You can repeadt it in about an hour. This will take the edge off but not completely numb the throat. Prescribed by: MANUEL GREER on 09/02/181812 Patient Home Medication List Home Medication List Reviewed: Yes Review of Systems Review of Systems Constitutional: see HPI Eyes: No Symptoms Reported Ears: No Symptoms Reported Nose: no symptoms reported Mouth: no symptoms reported Throat: see HPI, pain, painful swallowing, difficulty with fluids Respiratory: no symptoms reported Cardiovascular: no symptoms reported Musculoskeletal: no symptoms reported Skin: no symptoms reported Neurological: No Symptoms Reported Hematologic/Lymphatic: No Symptoms Reported Immunological/Allergic: no symptoms reported Past Vjmslfx-Aeycsl-Iuvblo Hx Patient Social History Alcohol Use: Denies Use Number of Drinks Today: HH Alcohol Beverage of Choice: Wine Recreational Drug Use: No Drug of Choice: CANNIBUS Type Used: Electronic/Vapor Former Smoker, Quit: Sep 21, 2017 2nd Hand Smoke Exposure: Yes Recent Foreign Travel: No Contact w/Someone Who Travel: No Recent Infectious Disease Expo: No Recent Hopitalizations: No Physical Abuse: No Sexual Abuse: No Mistreated: No Fear: No Immunizations Up To Date Tetanus Booster (TDap): Unknown PED Vaccines UTD: No Date of Influenza Vaccine: Dec 27, 2017 Seasonal Allergies Seasonal Allergies: Yes Past Medical History Surgeries: Yes (EGD, RT ANKLE FX, LT WRIST FX, BILAT LABIOPLASTY, WISDOM TEETH) Appendectomy, Orthopedic, Tonsillectomy Respiratory: No Pneumonia Cardiac: No Neurological: No Reproductive Disorders: No Female Reproductive Disorders: Denies Sexually Transmitted Disease: No HIV/AIDS: No Genitourinary: No Gastrointestinal: No Ulcer Musculoskeletal: Yes (WRIST AND ANKLE) Fractures Endocrine: No HEENT: No Loss of Vision: Denies Hearing Impairment: Denies Cancer: No Psychosocial: Yes (MILD) Depression Integumentary: No Blood Disorders: No Adverse Reaction/Blood Tranf: No (N/A) Family Medical History Cardiovascular disease 19 FATHER Diabetes mellitus 19 MOTHER FH: lupus 19 MOTHER No Pertinent Family Hx Physical Exam Vital Signs Vital Signs - First Documented 09/02/18 17:22 Temp 97.1 Pulse 105 Resp 18 B/P (MAP) 112/99 (103) Pulse Ox 97 O2 Delivery Room Air Height, Weight, BMI Height: 5'3.00" Weight: 125lbs. 0.0oz. 56.063864bw; 22.1 BMI Method:Stated General Appearance: WD/WN, no apparent distress Eyes: bilateral eye normal inspection, bilateral eye PERRL, bilateral eye EOMI Ears: bilateral ear auricle normal, bilateral ear canal normal, bilateral ear TM normal Mouth/Throat: normal mouth inspection, pharynx normal Neck: non-tender, full range of motion Respiratory: no respiratory distress, no accessory muscle use Gastrointestinal: normal bowel sounds Neurologic/Psychiatric: alert, normal mood/affect, oriented x 3 Skin: normal color, warm/dry Progress/Results/Core Measures Results/Orders Lab Results Laboratory Tests Test 09/02/18 17:40 09/02/18 17:45 Range/Units White Blood Count 9.6 4.3-11.0 10^3/uL Red Blood Count 5.43 4.35-5.85 10^6/uL Hemoglobin 14.3 11.5-16.0 G/DL Hematocrit 43 35-52 % Mean Corpuscular Volume 79 L 80-99 FL Mean Corpuscular Hemoglobin 26 25-34 PG Mean Corpuscular Hemoglobin Concent 33 32-36 G/DL Red Cell Distribution Width 14.1 10.0-14.5 % Platelet Count 344 130-400 10^3/uL Mean Platelet Volume 9.1 7.4-10.4 FL Neutrophils (%) (Auto) 58 42-75 % Lymphocytes (%) (Auto) 33 12-44 % Monocytes (%) (Auto) 8 0-12 % Eosinophils (%) (Auto) 2 0-10 % Basophils (%) (Auto) 0 0-10 % Neutrophils # (Auto) 5.6 1.8-7.8 X 10^3 Lymphocytes # (Auto) 3.1 1.0-4.0 X 10^3 Monocytes # (Auto) 0.7 0.0-1.0 X 10^3 Eosinophils # (Auto) 0.2 0.0-0.3 10^3/uL Basophils # (Auto) 0.0 0.0-0.1 10^3/uL Sodium Level 134 L 135-145 MMOL/L Potassium Level 4.0 3.6-5.0 MMOL/L Chloride Level 100 98-107 MMOL/L Carbon Dioxide Level 25 21-32 MMOL/L Anion Gap 9 5-14 MMOL/L Blood Urea Nitrogen 10 7-18 MG/DL Creatinine 0.75 0.60-1.30 MG/DL Estimat Glomerular Filtration Rate > 60 BUN/Creatinine Ratio 13 Glucose Level 87 70-105 MG/DL Calcium Level 9.2 8.5-10.1 MG/DL Urine Color YELLOW Urine Clarity SL CLOUDY Urine pH 7 5-9 Urine Specific [place] 1.005 L 1.016-1.022 Urine Protein NEGATIVE NEGATIVE Urine Glucose (UA) NEGATIVE NEGATIVE Urine Ketones NEGATIVE NEGATIVE Urine Nitrite NEGATIVE NEGATIVE Urine Bilirubin NEGATIVE NEGATIVE Urine Urobilinogen NORMAL NORMAL MG/DL Urine Leukocyte Esterase 3+ H NEGATIVE Urine RBC (Auto) 2+ H NEGATIVE Urine RBC RARE /HPF Urine WBC 5-10 H /HPF Urine Squamous Epithelial Cells 10-25 H /HPF Urine Crystals NONE /LPF Urine Bacteria FEW H /HPF Urine Casts NONE /LPF Urine Mucus NEGATIVE /LPF Urine Culture Indicated YES Micro Results Microbiology 09/02/18 Urine Culture - Final, Complete 3 or more isolates My Orders Orders - MANUEL GREER APRN Cbc With Automated Diff (09/02/18 17:29) Basic Metabolic Panel (09/02/18 17:29) Ua Culture If Indicated (09/02/18 17:29) Ed Iv/Invasive Line Start (09/02/18 17:29) Lactated Ringers (Lr 1000 Ml Iv Solution (09/02/18 17:30) Ondansetron Injection (Zofran Injectio (09/02/18 17:30) Fentanyl Injection (Sublimaze Injection (09/02/18 17:45) Urine Culture (09/02/18 17:45) Fentanyl Injection (Sublimaze Injection (09/02/18 18:30) Medications Given in ED Vital Signs/I&O Blood Pressure Mean: 103 Departure Impression Primary Impression: UTI (urinary tract infection) Qualified Codes: N30.00 - Acute cystitis without hematuria Additional Impression: Post-operative pain Disposition: HOME, SELF-CARE Condition: Stable Departure-Patient Inst. Decision time for Depature: 18:08 Referrals: ALEKS KING MD (PCP/Family) Primary Care Physician Patient Instructions: NO INSTRUCTIONS GIVEN Add. Discharge Instructions: All discharge instructions reviewed with patient and/or family. Voiced understanding. Scripts Cefdinir (Cefdinir) 125 Mg/5 Ml Susp.recon 12 ML PO BID, #120 ML 0 Refills Prov: MANUEL GREER APRN 09/02/18 Oxycodone HCl (Oxycodone HCl) 5 Mg/5 Ml Solution 5 MG PO Q6H for 7 Days, #60 ML Prov: MANUEL GREER APRN 09/02/18 Tetracaine (Tetracaine Suckers) Sucker Ea 1 EA MT UD PRN for PAIN, #15 EA Tetracain Suckers These suckers are custom made and require a prescription. Moisten the sucker first and then suck on it gently as far back in the mouth as possible for 2-3 days. You can repeadt it in about an hour. This will take the edge off but not completely numb the throat. Prov: MANUEL GREER APRN 09/02/18 Work/School Note: Work Release Form Date Seen in the Emergency Department: Sep 02, 2018 Return to Work: Sep 05, 2018 MANUEL GREER APRN Sep 02, 2018 17:38
[2018-09-02] MEDS ORDERED: fentaNYL INJECTION 100 MCG/2 ML AMP IVP ONE ×2 (17:45→18:30)
[2018-09-02 17:53] LABS: BASOPHILS % (AUTO) 0 % (0-10); EOSINOPHILS # (AUTO) 0.2 10^3/uL (0.0-0.3); EOSINOPHILS % (AUTO) 2 % (0-10); HEMATOCRIT 43 % (35-52); HEMOGLOBIN 14.3 G/DL (11.5-16.0); LYMPHOCYTES # (AUTO) 3.1 X 10^3 (1.0-4.0); LYMPHOCYTES % (AUTO) 33 % (12-44); MEAN CORPUSCULAR HEMOGLOBIN 26 PG (25-34); MEAN CORPUSCULAR HGB CONC 33 G/DL (32-36); MEAN CORPUSCULAR VOLUME 79 FL (80-99); MEAN PLATELET VOLUME 9.1 FL (7.4-10.4); MONOCYTES # (AUTO) 0.7 X 10^3 (0.0-1.0); MONOCYTES % (AUTO) 8 % (0-12); NEUTROPHILS # (AUTO) 5.6 X 10^3 (1.8-7.8); NEUTROPHILS % (AUTO) 58 % (42-75); PLATELET COUNT 344 10^3/uL (130-400); RED CELL DISTRIBUTION WIDTH 14.1 % (10.0-14.5); WHITE BLOOD COUNT 9.6 10^3/uL (4.3-11.0)
[2018-09-02 17:58] LABS: BILIRUBIN,URINE NEGATIVE (NEGATIVE); COLOR,URINE YELLOW; GLUCOSE, URINE (UA) NEGATIVE (NEGATIVE); KETONES,URINE NEGATIVE (NEGATIVE); LEUKOCYTE ESTERASE ,URINE 3+ (NEGATIVE); NITRITE,URINE NEGATIVE (NEGATIVE); PH,URINE 7 (5-9); PROTEIN,URINE NEGATIVE (NEGATIVE); UROBILINOGEN,URINE NORMAL (NORMAL)
[2018-09-02 18:06] LABS: BACTERIA,URINE FEW /HPF; CLARITY,URINE SL CLOUDY; RBC,URINE RARE /HPF
[2018-09-02 18:11] LABS: BUN/CREATININE RATIO 13; CALCIUM 9.2 MG/DL (8.5-10.1); CARBON DIOXIDE 25 MMOL/L (21-32); CHLORIDE 100 MMOL/L (98-107); CREATININE SERUM 0.75 MG/DL (0.60-1.30); GFR ESTIMATED > 60; GLUCOSE 87 MG/DL (70-105); SODIUM 134 MMOL/L (135-145)
[2018-09-02] MEDS ORDERED: TETRACAINESUCKERS MT (18:13)
[2018-09-02] MEDS ORDERED: AMOX400S9 PO (18:13)
[2018-09-02] MEDS ORDERED: OXYC5SOL19 PO (18:13)
[2018-09-02] MEDS ORDERED: CEFD125S3 PO (18:21)
[2018-09-02 18:31] VITALS: BP 105/71
== END 2018-09-02 18:31 | disposition home or self-care (01) ==
LOC: EDUNIT# 17:12 → ER 17:13
DX: N39.0 Urinary tract infection, site not specified (principal); G89.18 Other acute postprocedural pain; F32.9 Major depressive disorder, single episode, unspecified; Z82.49 Family history of ischemic heart disease and other diseases of the circulatory system; Z90.89 Acquired absence of other organs; Z88.0 Allergy status to penicillin; Z87.891 Personal history of nicotine dependence; Z90.49 Acquired absence of other specified parts of digestive tract; Z98.890 Other specified postprocedural states; Z87.01 Personal history of pneumonia (recurrent); Z87.19 Personal history of other diseases of the digestive system
CPT/HCPCS: 36415; 80048; 81000; 85025; 87088

== ENCOUNTER 2019-12-03 06:30 | Emergency (ER) | payer BC, MEDICAID ==
[~2019-12-03] VITALS: Ht 160 cm; Wt 55.0 kg
[~2019-12-03 06:30] MED LIST changes: -ACET-77 PO; +ACET-78 PO; +AMOX400S9 PO; +CEFD125S3 PO; +HYDR118S10; -MELA3TAB PO; +MELA3TAB39 PO; -OMEP20CA12 PO; +OMEP20CA18 PO; +OXYC5SOL19 PO; +[UNRECOGNIZED DRUG - CODE]
[2019-12-03] MEDS ORDERED: ACETAMINOPHEN 325 MG TABLET PO STA (07:12)
--- NOTE | 2019-12-03 07:30 | ED Cough/URI ---
General Chief Complaint: Fever-Adult/Adol Stated Complaint: FEVER, COUGH, N/V, DIZZINESS, BODY ACHES Nursing Triage Note: Pt here with fever, n/v/d. Sepsis Screen: No Definite Risk Source: patient Exam Limitations: no limitations History of Present Illness Date Seen by Provider: Dec 03, 2019 Time Seen by Provider: 06:50 Initial Comments Here with report of fever, chills, body aches, nausea and vomiting with occasion al diarrhea. Onset with sore throat 5 days ago and has progressed from there. Child is also now sick. She is unsure about COVID exposure but it is possible and to college that she attends has had COVID infection. Denies breathing problems. She is taking Tylenol and ibuprofen and that is not helping much. Timing/Duration: constant, other (4-5 days) Severity/Quality: mild, dry cough Prior Episodes/Possible Cause: no prior episodes Modifying Factors: Improves With Rest Associated Symptoms: cough, fever/chills, muscle aches, nasal congestion, shortness of breath, sore throat Allergies and Home Medications Allergies Coded Allergies: penicillin (Unverified Allergy, Mild, RASH, 08/18/18) Home Medications Cefdinir 125 Mg/5 Ml Susp.recon, 12 ML PO BID Prescribed by: MANUEL GREER on 09/02/181820 Lorazepam 0.5 Mg Tablet, 0.25 MG PO HS, (Reported) Norgestimate-Ethinyl Estradiol 1 Each Tablet, 1 EACH PO DAILY, (Reported) Oxycodone HCl 5 Mg/5 Ml Solution, 5 MG PO Q6H Prescribed by: MANUEL GREER on 09/02/181812 Sertraline HCl 100 Mg Tablet, 100 MG PO DAILY, (Reported) Tetracaine Sucker Ea, 1 EA MT UD PRN for PAIN Tetracain Suckers These suckers are custom made and require a prescription. Moisten the sucker first and then suck on it gently as far back in the mouth as possible for 2-3 days. You can repeadt it in about an hour. This will take the edge off but not completely numb the throat. Prescribed by: MANUEL GREER on 09/02/181812 Patient Home Medication List Home Medication List Reviewed: Yes Review of Systems Review of Systems Constitutional: see HPI EENTM: see HPI Respiratory: see HPI; No short of breath, No wheezing Cardiovascular: No chest pain, No edema Gastrointestinal: see HPI; No abdominal pain Genitourinary: no symptoms reported Musculoskeletal: see HPI Past Pgiuijm-Pyiper-Tlbqsw Hx Past Med/Social Hx: Reviewed Nursing Past Med/Soc Hx Patient Social History Alcohol Use: Occasionally Uses Number of Drinks Today: Alcohol Beverage of Choice: Wine Recreational Drug Use: No Drug of Choice: CANNIBUS Type Used: Electronic/Vapor Former Smoker, Quit: Sep 21, 2017 2nd Hand Smoke Exposure: Yes Recent Foreign Travel: No Contact w/Someone Who Travel: No Recent Infectious Disease Expo: Yes Recent Hopitalizations: No Immunizations Up To Date Tetanus Booster (TDap): Unknown PED Vaccines UTD: No Date of Influenza Vaccine: Dec 27, 2017 Seasonal Allergies Seasonal Allergies: Yes Past Medical History Surgeries: Yes (EGD, RT ANKLE FX, LT WRIST FX, BILAT LABIOPLASTY, WISDOM TEETH) Appendectomy, Orthopedic, Tonsillectomy Respiratory: No Pneumonia Cardiac: No Neurological: No Reproductive Disorders: No Female Reproductive Disorders: Denies Sexually Transmitted Disease: No HIV/AIDS: No Genitourinary: No Gastrointestinal: No Ulcer Musculoskeletal: Yes (WRIST AND ANKLE) Fractures Endocrine: No HEENT: No Loss of Vision: Denies Hearing Impairment: Denies Cancer: No Psychosocial: Yes (MILD) Depression Integumentary: No Blood Disorders: No Adverse Reaction/Blood Tranf: No (N/A) Family Medical History Reviewed Nursing Family Hx Cardiovascular disease 19 FATHER Diabetes mellitus 19 MOTHER FH: lupus 19 MOTHER No Pertinent Family Hx Physical Exam Vital Signs - First Documented 12/03/19 06:45 Temp 37.9 Pulse 90 Resp 18 B/P (MAP) 123/79 (94) Pulse Ox 98 O2 Delivery Room Air Capillary Refill : Less Than 3 Seconds Height: 5'3.00" Weight: 125lbs. 0.0oz. 56.046051pz; 21.00 BMI Method:Stated General Appearance: WD/WN, no apparent distress HEENT: PERRL/EOMI, pharyngeal erythema Neck: full range of motion, supple Respiratory: lungs clear, normal breath sounds Cardiovascular: regular rate, rhythm, no murmur Gastrointestinal: non tender, soft Extremities: normal range of motion, non-tender, normal inspection Neurologic/Psychiatric: alert, oriented x 3 Skin: normal color, warm/dry Progress/Results/Core Measures Suspected Sepsis Recent Fever Within 48 Hours: Yes Infection Criteria Present: None New/Unexplained Altered Menta: No Sepsis Screen: No Definite Risk SIRS Temperature: Pulse: 90 Respiratory Rate: 18 Blood Pressure 123 /79 Mean: 94 Results/Orders Lab Results Laboratory Tests Test 12/03/19 07:14 Range/Units Coronavirus 2019 (MELISSA) Negative Negative My Orders Orders - KAROLINA PERAZA MD Acetaminophen Tablet/Caplet (Tylenol T (12/03/19 07:12) Covid 19 Inhouse Test (12/03/19 07:12) Coronavirus Sars-Cov-2 So 2019 (12/03/19 07:54) Vital Signs/I&O 12/03/19 06:45 Temp 37.9 Pulse 90 Resp 18 B/P (MAP) 123/79 (94) Pulse Ox 98 O2 Delivery Room Air Capillary Refill : Less Than 3 Seconds Blood Pressure Mean: 94 Progress Note : Progress Note Seen and evaluated. Tylenol 650 mg by mouth ordered. Rapid COVID-19 test ordered. Monitor patient. 0830: Rapid COVID test is negative. Send out testing pending. I did discuss with the mother regarding precautions. Her child's RSV and influenza tests were negative. She's had several days of symptoms but seems to be responding well to Tylenol. I did discuss all this with the patient. We will continue supportive outpatient therapy pending COVID-19 tests. She agrees. Discharged home with return precautions. Patient verbalize understanding of instructions and agreement with plan. Departure Impression Primary Impression: Viral infection Additional Impression: COVID-19 evaluation Disposition: 01 HOME, SELF-CARE Condition: Stable Departure-Patient Inst. Decision time for Depature: 08:39 Referrals: ALEKS KING MD (PCP/Family) Primary Care Physician Patient Instructions: Coronavirus Disease 2019 (COVID-19) (DC), Viral Syndrome (DC) Add. Discharge Instructions: All discharge instructions reviewed with patient and/or family. Voiced understanding. Drink plenty of fluids and get plenty of rest. You will need to remain on quarantine until test results are noted. If they are negative, you will need to be isolated for 3 days after symptoms resolve. If they are positive, the health department will call you and direct isolation timeframe. You may take ibuprofen 600 mg every 8 hours as needed for fever or pain. You may take Tylenol/acetaminophen 1000 mg every 8 hours as needed for fever.. Return for worse pain, fever, vomiting, weakness, breathing problems or other concerns as needed. KAROLINA PERAZA MD Dec 03, 2019 07:30
[2019-12-03 08:56] VITALS: BP 118/76
== END 2019-12-03 08:56 | disposition home or self-care (01) ==
LOC: EDUNIT# 06:30 → ER 06:32
DX: B34.9 Viral infection, unspecified (principal); J18.9 Pneumonia, unspecified organism; F32.9 Major depressive disorder, single episode, unspecified; Z20.828 Contact with and (suspected) exposure to other viral communicable diseases; Z88.0 Allergy status to penicillin; Z82.49 Family history of ischemic heart disease and other diseases of the circulatory system; Z87.891 Personal history of nicotine dependence
CPT/HCPCS: 87635; 99283

== ENCOUNTER 2022-12-27 19:09 | Emergency (ER) | payer BC, MEDICAID ==
[~2022-12-27 19:09] MED LIST changes: -PROC10TA10 PO; +PROC10TA15 PO; +SCOP1PAT10 TOP; -SCOP1PAT11 TOP; +[UNRECOGNIZED DRUG - CODE]; -[UNRECOGNIZED DRUG - CODE]
[2022-12-27] MEDS ORDERED: NS IV 1000 ML 1,000 ML IV STA (20:35)
[2022-12-27] MEDS ORDERED: GLYCERIN ADULT SUPPOSITORY PR ONE (20:45)
[2022-12-27 20:46] LABS: CLARITY,URINE CLEAR; COLOR,URINE YELLOW
[2022-12-27 20:47] LABS: BACTERIA,URINE FEW /HPF; BILIRUBIN,URINE NEGATIVE (NEGATIVE); GLUCOSE, URINE (UA) NEGATIVE (NEGATIVE); KETONES,URINE NEGATIVE (NEGATIVE); LEUKOCYTE ESTERASE ,URINE NEGATIVE (NEGATIVE); NITRITE,URINE NEGATIVE (NEGATIVE); PROTEIN,URINE NEGATIVE (NEGATIVE); RBC,URINE 0-2 /HPF; WBC,URINE RARE /HPF
[2022-12-27] MEDS ORDERED: GLYCERIN ONE (21:22)
[2022-12-27] MEDS ORDERED: ONDANSETRON INJECTION 4 MG/2 ML (SDV) ONE (21:24)
[2022-12-27 21:27] LABS: BASOPHILS % (AUTO) 0 % (0-10); EOSINOPHILS # (AUTO) 0.1 10^3/uL (0.0-0.3); EOSINOPHILS % (AUTO) 1 % (0-10); HEMATOCRIT 40 % (35-52); HEMOGLOBIN 13.7 g/dL (11.5-16.0); LYMPHOCYTES # (AUTO) 2.5 10^3/uL (1.0-4.0); LYMPHOCYTES % (AUTO) 29 % (12-44); MEAN CORPUSCULAR HEMOGLOBIN 30 pg (25-34); MEAN CORPUSCULAR HGB CONC 34 g/dL (32-36); MEAN CORPUSCULAR VOLUME 86 fL (80-99); MONOCYTES # (AUTO) 0.7 10^3/uL (0.0-1.0); MONOCYTES % (AUTO) 8 % (0-12); NEUTROPHILS # (AUTO) 5.3 10^3/uL (1.8-7.8); NEUTROPHILS % (AUTO) 62 % (42-75); PLATELET COUNT 198 10^3/uL (130-400); WHITE BLOOD COUNT 8.6 10^3/uL (4.3-11.0)
[2022-12-27 21:28] LABS: MEAN PLATELET VOLUME 9.5 fL (9.0-12.2)
[2022-12-27] MEDS ORDERED: ONDANSETRON INJECTION 4 MG/2 ML (SDV) IVP ONE ×2 (21:30)
--- NOTE | 2022-12-27 21:31 | ED Abdominal Pain ---
General Chief Complaint: Abdominal/GI Problems Stated Complaint: 7 WEEKS /NO BOWEL MOVEMENT FOR 6 DAYS Nursing Triage Note: TO ED VIA POV AND AMBULATORY TO FT3 WITH C/O CONSTIPATION. PT STATES SHE IS APPROX 7 WEEKS WITH LMP 10/29/22. HAS TRIED DULCOLAX PO AND PRUNE JUICE. DENIES VAGINAL BLEEDING OR CRAMPING. Source of Information: Patient Exam Limitations: No Limitations (KAROLINA PERAZA MD) History of Present Illness Date Seen by Provider: Dec 27, 2022 Time Seen by Provider: 20:30 Initial Comments Here with report of constipation for 6 days. She has tried p.o. Dulcolax and prune juice and that has not helped. She does take vitamins. She reports she is approximately 7 weeks . She does have some intermittent nausea and vomiting and has had that through her previous as well and in fact had to be admitted during the last 1. She states that she does not like that currently. She did not know what to do about the constipation and so presented for further evaluation. She also reports that her urine is a little darker and she feels dry because of the constipation And nausea . Timing/Duration: 6-7 Days Severity/Quality: Mild, Cramping Location: Other (Lower abdomen) Radiation: No Radiation Activities at Onset: None Associated Symptoms: No Back Pain, No Chest Pain, No Fever/Chills; Nausea/Vomiting; No Shortness of Air, No Weakness (KAROLINA PERAZA MD) Allergies and Home Medications Allergies Coded Allergies: penicillin (Unverified Allergy, Mild, RASH, 08/18/18) Patient Home Medication List Home Medication List Reviewed: Yes (KAROLINA PERAZA MD) Cefdinir (Cefdinir) 125 Mg/5 Ml Susp.recon, 12 ML PO BID Prescribed by: MANUEL GREER on 09/02/18 1821 Hydrocodone/Acetaminophen (Hydrocodone-Acetamn 7.5-325/15) 118 Ml Solution, (Reported) Entered as Reported by: FELIPA SALCEDO on 09/02/18 1726 Lorazepam (Lorazepam) 0.5 Mg Tablet, 0.25 MG PO HS, (Reported) Entered as Reported by: MIKY SANTOS on 08/18/18 1346 Norgestimate-Ethinyl Estradiol (Sprintec 28 Day Tablet) 1 Each Tablet, 1 EACH PO DAILY, (Reported) Entered as Reported by: MIKY SANTOS on 08/18/18 134 Oxycodone HCl (Oxycodone HCl) 5 Mg/5 Ml Solution, 5 MG PO Q6H Prescribed by: MANUEL GREER on 09/02/181812 Sertraline HCl (Zoloft) 100 Mg Tablet, 100 MG PO DAILY, (Reported) Entered as Reported by: MIKY SANTOS on 08/18/18 134 Tetracaine (Tetracaine Suckers) Alex Ea, 1 EA MT UD PRN for PAIN Prescribed by: MANUEL GREER on 09/02/181812 Tetracaine HCl (Tetracaine HCl) 100 Gm Powder, (Reported) Entered as Reported by: FELIPA SALCEDO on 09/02/18 172 Review of Systems Review of Systems Constitutional: see HPI; No chills, No fever EENTM: No Nose Congestion, No Throat Pain Respiratory: Denies Cough, Denies Shortness of Air Cardiovascular: Denies Chest Pain Gastrointestinal: Abdominal Pain, Constipated, Nausea Genitourinary: No Symptoms Reported Musculoskeletal: no symptoms reported Skin: no symptoms reported (KAROLINA PERAZA MD) Past Sldpybn-Enstlt-Abvdkf Hx Patient Social History Tobacco Use?: No Substance use?: No Additional substance use comme: DENIES Alcohol Use?: No (KAROLINA PERAZA MD) Immunizations Up To Date Tetanus Booster (TDap): Unknown PED Vaccines UTD: No (KAROLINA PERAZA MD) Seasonal Allergies Seasonal Allergies: Yes (KAROLINA PERAZA MD) Past Medical History Surgeries: Yes (EGD, RT ANKLE FX, LT WRIST FX, BILAT LABIOPLASTY, WISDOM TEETH) Appendectomy, Orthopedic, Tonsillectomy Respiratory: No Pneumonia Cardiac: No Neurological: No Last Menstrual Period: Oct 29, 2022 Reproductive Disorders: No Female Reproductive Disorders: Denies Sexually Transmitted Disease: No HIV/AIDS: No Genitourinary: No Gastrointestinal: No Ulcer Musculoskeletal: Yes (WRIST AND ANKLE) Fractures Endocrine: No HEENT: No Loss of Vision: Denies Hearing Impairment: Denies Cancer: No Psychosocial: Yes (MILD) Depression Integumentary: No Blood Disorders: No Adverse Reaction/Blood Tranf: No (N/A) (KAROLINA PERAZA MD) Family Medical History Reviewed Nursing Family Hx (KAROLINA PERAZA MD) Cardiovascular disease 19 FATHER Diabetes mellitus 19 MOTHER FH: lupus 19 MOTHER No Pertinent Family Hx (KAROLINA PERAZA MD) Physical Exam Vital Signs Vital Signs - First Documented 12/27/22 19:43 Temp 37.0 Pulse 61 Resp 16 B/P (MAP) 111/67 (82) Pulse Ox 99 O2 Delivery Room Air (GIOVANNA SHEPARD APRN) Vital Signs Capillary Refill : Less Than 3 Seconds (KAROLINA PERAZA MD) Height/Weight/BMI Height: 5'3.00" Weight: 125lbs. 0.0oz. 56.442703bk; 21.00 BMI Method:Stated General Appearance: WD/WN, no apparent distress Neck: full range of motion, supple Respiratory: lungs clear, normal breath sounds Cardiovascular: regular rate, rhythm, no murmur Gastrointestinal: non tender, soft Extremities: non-tender, normal inspection Back: normal inspection, no CVA tenderness, no vertebral tenderness Neurologic/Psychiatric: alert, oriented x 3 Skin: normal color, warm/dry (KAROLINA PERAZA MD) Genital/Rectal: normal rectal exam (GIOVANNA SHEPARD APRN) Progress/Results/Core Measures Results/Orders Lab Results Laboratory Tests Test 12/27/22 20:30 12/27/22 21:15 Range/Units Urine Color YELLOW Urine Clarity CLEAR Urine pH 6.0 5-9 Urine Specific Topmost >=1.030 1.016-1.022 Urine Protein NEGATIVE NEGATIVE Urine Glucose (UA) NEGATIVE NEGATIVE Urine Ketones NEGATIVE NEGATIVE Urine Nitrite NEGATIVE NEGATIVE Urine Bilirubin NEGATIVE NEGATIVE Urine Urobilinogen 0.2 < = 1.0 MG/DL Urine Leukocyte Esterase NEGATIVE NEGATIVE Urine RBC (Auto) NEGATIVE NEGATIVE Urine RBC 0-2 /HPF Urine WBC RARE /HPF Urine Squamous Epithelial Cells 2-5 /HPF Urine Crystals NONE /LPF Urine Bacteria FEW H /HPF Urine Casts NONE /LPF Urine Mucus SMALL H /LPF Urine Culture Indicated YES White Blood Count 8.6 4.3-11.0 10^3/uL Red Blood Count 4.65 3.80-5.11 10^6/uL Hemoglobin 13.7 11.5-16.0 g/dL Hematocrit 40 35-52 % Mean Corpuscular Volume 86 80-99 fL Mean Corpuscular Hemoglobin 30 25-34 pg Mean Corpuscular Hemoglobin Concent 34 32-36 g/dL Red Cell Distribution Width 11.5 10.0-14.5 % Platelet Count 198 130-400 10^3/uL Mean Platelet Volume 9.5 9.0-12.2 fL Immature Granulocyte % (Auto) 0 % Neutrophils (%) (Auto) 62 42-75 % Lymphocytes (%) (Auto) 29 12-44 % Monocytes (%) (Auto) 8 0-12 % Eosinophils (%) (Auto) 1 0-10 % Basophils (%) (Auto) 0 0-10 % Neutrophils # (Auto) 5.3 1.8-7.8 10^3/uL Lymphocytes # (Auto) 2.5 1.0-4.0 10^3/uL Monocytes # (Auto) 0.7 0.0-1.0 10^3/uL Eosinophils # (Auto) 0.1 0.0-0.3 10^3/uL Basophils # (Auto) 0.0 0.0-0.1 10^3/uL Immature Granulocyte # (Auto) 0.0 0.0-0.1 10^3/uL Sodium Level 138 135-145 MMOL/L Potassium Level 3.5 L 3.6-5.0 MMOL/L Chloride Level 105 98-107 MMOL/L Carbon Dioxide Level 21 21-32 MMOL/L Anion Gap 12 5-14 MMOL/L Blood Urea Nitrogen 12 7-18 MG/DL Creatinine 0.73 0.60-1.30 MG/DL Estimat Glomerular Filtration Rate 117 BUN/Creatinine Ratio 16 Glucose Level 83 70-105 MG/DL Calcium Level 8.5 8.5-10.1 MG/DL (GIOVANNA SHEPARD APRN) My Orders Orders - GIOVANNA SHEPARD APRN Ua Culture If Indicated (12/27/22 20:27) Urine Bedside (12/27/22 20:27) Urine Culture (12/27/22 20:30) Glycerin Liquid Pediatric Supp (Glycerin (12/27/22 21:22) Ondansetron Injection (Ondansetron Inj (12/27/22 21:24) Na Phos/Na Biphos Adult Enema (Na Phos/N (12/27/22 22:04) (GIOVANNA SHEPARD APRN) Medications Given in ED Current Medications Medications Dose Ordered Sig/Emily Route Start Time Stop Time Status Last Admin Dose Admin Glycerin 1 each STK-MED ONCE .ROUTE 12/27/22 21:22 12/27/22 21:26 DC 12/27/22 21:40 1 EACH Glycerin 2 ea ONCE ONCE WY 12/27/22 20:45 12/27/22 20:46 DC 12/27/22 21:40 2 EA Ondansetron HCl 4 mg ONCE ONCE IVP 12/27/22 21:30 12/27/22 21:31 DC 12/27/22 21:27 4 MG (GIOVANNA SHEPARD APRN) Vital Signs/I&O 12/27/22 19:43 Temp 37.0 Pulse 61 Resp 16 B/P (MAP) 111/67 (82) Pulse Ox 99 O2 Delivery Room Air 12/28/22 00:00 Intake Total 1000 ml Balance 1000 ml (GIOVANNA SHEPARD APRN) Blood Pressure Mean: 82 Progress Progress Note : Progress Note Seen and evaluated. We will go ahead and get an IV and check CBC and BMP as well as UA. Normal saline 1 L bolus. We did discuss but we will not do abdominal x-ray due to . I will perform bedside ultrasound. Care will be transferred to Giovanna Shepard APRN who will continue to monitor and perform digital rectal exam in place glycerin suppositories if needed. I did bedside checkout with Giovanna. Monitor patient. Differential diagnosis includes nausea and vomiting of , dehydration, UTI, constipation, electrolyte abnormality 2129 CBC is grossly normal chemistry pending. UA shows concentration without ketones or findings of UTI. 2144: Bedside ultrasound performed by me for via transabdominal approach. Intrauterine noted with crown- rump length of approximately 8 weeks and 0 days with positive heart tones noted. (KAROLINA PERAZA MD) Progress Note : Progress Note 2144 digital rectal exam performed, no stool in rectal vault. CMP reviewed, potassium slightly decreased 3.4. 2209 patient was unable to retain the glycerin suppository longer to produce a bowel movement. Will discharge with a Fleet enema for her to do at home tonight. We discussed options for constipation while . Instructed to use MiraLAX daily until she is having soft stools and to continue docusate sodium. Patient stable for discharge. Discharge instructions and return precautions provided. (GIOVANNA SHEPARD APRN) Departure Impression Primary Impression: Constipation Qualified Codes: K59.00 - Constipation, unspecified Disposition: HOME, SELF-CARE Condition: Stable Departure-Patient Inst. Decision time for Depature: 22:12 (GIOVANNA HSEPARD APRN) Referrals: ALEKS KING MD (PCP/Family) Primary Care Physician Patient Instructions: Constipation, Adult (DC) Add. Discharge Instructions: Use the Fleet enema tonight. You should take a capful of MiraLAX once a day every day until you start having regular soft bowel movements. If your stools become loose, you can stop taking or reduce how frequently you are using it. You can continue taking the docusate sodium once or twice a day. Follow-up with your UPHOLSTERY MECHANIC. Return for any new, concerning, or worsening symptoms. All discharge instructions reviewed with patient and/or family. Voiced understanding. KAROLINA PERAZA MD Dec 27, 2022 21:31 GIOVANNA SHEPARD APRN Dec 27, 2022 21:47
[2022-12-27 21:49] LABS: CALCIUM 8.5 MG/DL (8.5-10.1); CREATININE SERUM 0.73 MG/DL (0.60-1.30); POTASSIUM 3.5 MMOL/L (3.6-5.0)
[2022-12-27] MEDS ORDERED: Sodium Phosphate/Sodium Biphosphate ADULT enema ONE (22:04)
[2022-12-27 22:24] VITALS: BP 115/70
== END 2022-12-27 22:24 | disposition home or self-care (01) ==
LOC: EDUNIT# 19:09 → ER 19:13
DX: O99.611 Diseases of the digestive system complicating pregnancy, first trimester (principal); K59.00 Constipation, unspecified; Z3A.01 Less than 8 weeks gestation of pregnancy
CPT/HCPCS: 36415; 80048; 81000; 85025; 87088

== ENCOUNTER 2023-01-17 13:49 | Emergency (ER) | payer BC, MEDICAID ==
[~2023-01-17] VITALS: Ht 160 cm; Wt 64.4 kg
--- NOTE | 2023-01-17 14:14 | ED Abdominal Pain ---
General Chief Complaint: OB < 20 WEEKS Stated Complaint: 10 WEEKS / FALL Source of Information: Patient Exam Limitations: No Limitations History of Present Illness Date Seen by Provider: Jan 17, 2023 Time Seen by Provider: 14:12 Initial Comments Patient is a 27-year-old female who is G2, P1 who presents ED for injury to her abdomen. About 30 minutes ago she slipped going down the stairs outside hitting the paved stones across her lower abdomen. She reports abrasion. She denies hitting her head or loss of consciousness. She reports pain 2 out of 10. She denies of any vomiting, headache, dizziness, chest pain, shortness of breath, vaginal bleeding, pain with urination, back pain, weakness. She is slightly tearful. Denies taking thing for pain. Allergies and Home Medications Allergies Coded Allergies: penicillin (Unverified Allergy, Mild, RASH, 08/18/18) Patient Home Medication List Home Medication List Reviewed: Yes Cefdinir (Cefdinir) 125 Mg/5 Ml Susp.recon, 12 ML PO BID Prescribed by: MANUEL GREER on 09/02/18 1821 Hydrocodone/Acetaminophen (Hydrocodone-Acetamn 7.5-325/15) 118 Ml Solution, (Reported) Entered as Reported by: FELIPA SALCEDO on 09/02/18 1726 Lorazepam (Lorazepam) 0.5 Mg Tablet, 0.25 MG PO HS, (Reported) Entered as Reported by: MIKY SANTOS on 08/18/18 1346 Norgestimate-Ethinyl Estradiol (Sprintec 28 Day Tablet) 1 Each Tablet, 1 EACH PO DAILY, (Reported) Entered as Reported by: MIKY SANTOS on 08/18/18 1346 Oxycodone HCl (Oxycodone HCl) 5 Mg/5 Ml Solution, 5 MG PO Q6H Prescribed by: MANUEL GREER on 09/02/18 181 Sertraline HCl (Zoloft) 100 Mg Tablet, 100 MG PO DAILY, (Reported) Entered as Reported by: MIKY SANTOS on 08/18/18 1346 Tetracaine (Tetracaine Suckers) Tomier Ea, 1 EA MT UD PRN for PAIN Prescribed by: MANUEL GREER on 09/02/18 181 Tetracaine HCl (Tetracaine HCl) 100 Gm Powder, (Reported) Entered as Reported by: FELIPA SALCEDO on 09/02/18 1726 Review of Systems Review of Systems Constitutional: No chills, No diaphoresis, No malaise, No weakness EENTM: No Double Vision, No Eye Pain Respiratory: Denies Cough, Denies Orthopnea Cardiovascular: Denies Chest Pain Gastrointestinal: Abdominal Pain; Denies Diarrhea, Denies Nausea, Denies Vomiting Genitourinary: Denies Burning, Denies Discharge, Denies Drainage, Denies Frequency, Denies Flank Pain Musculoskeletal: No back pain, No joint pain Skin: change in color; No change in hair/nails All Other Systems Reviewed Negative Unless Noted: Yes Past Xwtuwda-Umnhph-Rgnnsq Hx Immunizations Up To Date Tetanus Booster (TDap): Unknown PED Vaccines UTD: No Seasonal Allergies Seasonal Allergies: Yes Past Medical History Surgeries: Yes (EGD, RT ANKLE FX, LT WRIST FX, BILAT LABIOPLASTY, WISDOM TEETH) Appendectomy, Orthopedic, Tonsillectomy Respiratory: No Pneumonia Cardiac: No Neurological: No Reproductive Disorders: No Female Reproductive Disorders: Denies Sexually Transmitted Disease: No HIV/AIDS: No Genitourinary: No Gastrointestinal: No Ulcer Musculoskeletal: Yes (WRIST AND ANKLE) Fractures Endocrine: No HEENT: No Loss of Vision: Denies Hearing Impairment: Denies Cancer: No Psychosocial: Yes (MILD) Depression Integumentary: No Blood Disorders: No Adverse Reaction/Blood Tranf: No (N/A) Family Medical History Cardiovascular disease 19 FATHER Diabetes mellitus 19 MOTHER FH: lupus 19 MOTHER No Pertinent Family Hx Physical Exam Vital Signs Vital Signs - First Documented 01/17/23 01/17/23 14:09 14:40 Temp 36.1 Pulse 83 Resp 19 B/P (MAP) 109/70 (83) Pulse Ox 100 O2 Delivery Room Air Capillary Refill : Height/Weight/BMI Height: 5'3.00" Weight: 125lbs. 0.0oz. 56.505501re; 21.00 BMI Method:Stated General Appearance: WD/WN, no apparent distress HEENT: PERRL/EOMI, normal ENT inspection, TMs normal, pharynx normal Neck: non-tender, full range of motion, supple Respiratory: chest non-tender, lungs clear, normal breath sounds, no respiratory distress, no accessory muscle use Cardiovascular: regular rate, rhythm, no edema, no gallop, no JVD Gastrointestinal: normal bowel sounds, soft, no organomegaly, no pulsatile mass, tenderness (Left lower quadrant tenderness. Normal bowel sound throughout. No rebound or guarding) Extremities: normal range of motion, non-tender, normal inspection, no pedal edema Neurologic/Psychiatric: entertainment & media correspondent II-XII nml as tested, no motor/sensory deficits, alert, normal mood/affect, oriented x 3 Skin: normal color, warm/dry Progress/Results/Core Measures Results/Orders Vital Signs/I&O 01/17/23 01/17/23 14:09 14:40 Temp 36.1 36.7 Pulse 83 86 Resp 19 19 B/P (MAP) 109/70 (83) 124/70 Pulse Ox 100 O2 Delivery Room Air Room Air Departure Communication (PCP) Patient G2, P1 presents ED with abdominal injury. Abrasion to the left upper abdomen. Reports minimal pain in left lower quadrant. No vomiting diarrhea vaginal bleeding. She is around [address] Vaughn. Do not have ultrasound on the weekends. Did a bedside ultrasound which did note cardiac activity. cardiac activity 147 bpm. no obvious hemorrhaging on bedside ultrasound. Since not able to get a formal ultrasound exam otherwise limited. Limited resources on the weekends. suggest following up with your PHARMACEUTICAL PLANT OPERATOR in the next 1 to 2 days for reevaluation. Patient refused anything for pain. She denies seeing her head or loss of consciousness. She has no cervical, thoracic or lumbar midline tenderness. PAt this time recommend Tylenol. Suggest follow-up with Dr. Vaughn in the next 1 to 2 days. If any worsening pain, vaginal bleeding to return back to ED. Impression Primary Impression: Abdominal injury Disposition: 01 HOME, SELF-CARE Condition: Stable Departure-Patient Inst. Decision time for Depature: 14:34 Referrals: ALEKS KING MD (PCP/Family) Primary Care Physician Patient Instructions: Abdominal Trauma in ED Add. Discharge Instructions: Recommend follow-up with your PHARMACEUTICAL PLANT OPERATOR for further evaluation. If any worsening pain, vaginal bleeding to return back to ED All discharge instructions reviewed with patient and/or family. Voiced understanding. JUAN ERICKSON Jan 17, 2023 14:14
[2023-01-17 14:40] VITALS: BP 124/70
== END 2023-01-17 14:40 | disposition home or self-care (01) ==
LOC: EDUNIT# 13:49 → ER 13:51
DX: O9A.211 Injury, poisoning and certain other consequences of external causes complicating pregnancy, first trimester (principal); S30.811A Abrasion of abdominal wall, initial encounter; Z90.49 Acquired absence of other specified parts of digestive tract; Z3A.10 10 weeks gestation of pregnancy; W10.9XXA Fall (on) (from) unspecified stairs and steps, initial encounter; W22.8XXA Striking against or struck by other objects, initial encounter
CPT/HCPCS: 99281